=== PATIENT | male | born 1950 | race Caucasian/White ===

== ENCOUNTER 2023-10-10 11:20 | Outpatient (OUT) | payer MEDICARE, SELFPAY ==
[2023-10-10 12:13] LABS: Alanine Aminotransferase 40 U/L (16-63); Albumin Level 4.1 g/dL (3.4-5.0); Alkaline Phosphatase 55 U/L (46-116); Aspartate Amino Transferase 36 U/L (15-37); BUN Creatinine Ratio 14.4; Bilirubin Total 0.6 mg/dL (0.2-1.0); Calcium 8.8 mg/dL (8.5-10.1); Chloride 104 mmol/L (98-107); Chol HDL Ratio 3.6; Cholesterol 147 mg/dL (<=200); Estimated GFR (African America >60 (>=60); Estimated GFR (Non-African Ame >60 (>=60); Globulin 4.2 g/dL; Glucose 106 mg/dL (74-106); HDL Cholesterol 41 mg/dL (40-60); LDL Cholesterol Calculated 81.2 mg/dL; Sodium 140 mmol/L (136-145); Total Protein 8.3 g/dL (6.4-8.2); Triglycerides 124 mg/dL (<=150); VLDL CHOLESTEROL 24.8 mg/dL
[2023-10-10 12:24] LABS: Creatine Kinase 469 U/L (39-308)
== END 2023-10-10 11:21 | disposition home or self-care (01) ==
LOC: LAB 11:28
PROVIDERS: PCP Family Medicine; Visit Provider Nurse Practitioner Family
DX: I25.10 Atherosclerotic heart disease of native coronary artery without angina pectoris (principal)
CPT/HCPCS: 36415; 80053; 80061; 82550

== ENCOUNTER 2024-02-18 12:53 | Outpatient (OUT) | payer MEDICARE, SELFPAY ==
--- OUTSIDE RECORDS SUMMARY | 2024-02-18 13:12 | XMS_ITS | CCD ---
Author Organization [facility] Care Team Providers Care Route Process Administrator Name Role Phone BRYCE HUERTA Attending Unavailable MIRTAMABER Admitting Unavailable MIRTAAMBER Consulting Unavailable AMBER KIRBY Attending Unavailable HOY ., DR CROOKS Primary Care Unavailable MOUKARBEL, DR WU Admitting Unavailable MOUKARBEL, DR WU Attending Unavailable HOY ., DR CROOKS Primary Care Unavailable MOUKARBEL, DR WU Admitting Unavailable MOUKARBEL, DR WU Consulting Unavailable MOUKARBEL, DR WU Attending Unavailable HOY ., DR CROOKS Primary Care Unavailable HOY ., DR CROOKS Consulting Unavailable HOY ., DR CROOKS Attending Unavailable HOY ., DR CROOKS Admitting Unavailable HOY ., DR CROOKS Primary Care Unavailable HOY ., DR CROOKS Primary Care Unavailable HOY ., DR CROOKS Consulting Unavailable HOY ., DR CROOKS Attending Unavailable HOY ., DR CROOKS Admitting Unavailable HenriyYamilDaksha Referring Unavailable Haroon HUNTLEY Attending Unavailable Allergies Allergy Classification Reported Allergen(s) Allergy Type Date of Onset Reaction(s) Facility (1 source) black walnut pollen extract Drug Allergy [facility] Repository (1 source) Hmg-Coa Reductase Inhibitors (Statins); Translations: [statins] Propensity to adverse reactions (disorder) [facility] Repository Problems Problem Classification Problem Date Documented Date Episodic/Chronic Coronary atherosclerosis and other heart disease (3 sources) Atherosclerotic heart disease of douglas coronary artery without angina pectoris; Translations: [Atherosclerotic heart disease of douglas coronary artery without angina pectoris] Onset: 08-19-2022 Chronic Coronary atherosclerosis and other heart disease (2 sources) Presence of aortocoronary bypass graft; Translations: [Presence of aortocoronary bypass graft] Onset: 08-19-2022 Episodic Diabetes mellitus without complication (4 sources) Other abnormal glucose; Translations: [OTHER ABNORMAL GLUCOSE] Onset: 03-18-2023 Episodic Disorders of lipid metabolism (7 sources) Mixed hyperlipidemia; Translations: [Hyperlipidemia, unspecified] Onset: 07-10-2022 Chronic Essential hypertension (3 sources) Essential (primary) hypertension; Translations: [Essential (primary) hypertension] Onset: 08-19-2022 Chronic Malaise and fatigue (1 source) Other fatigue; Translations: [OTHER FATIGUE] Onset: 03-19-2023 Episodic Other screening for suspected conditions (not mental disorders or infectious disease) (2 sources) Encounter for screening for malignant neoplasm of prostate; Translations: [Encounter for screening for malignant neoplasm of rectum] Onset: 03-19-2023 Episodic Results Test Name Value Interpretation Reference Range Facility Physician Referralon 024 Physician Referral [id number] Normal [facility] Physician Referralon 024 Physician Referral [id number] Normal [facility] OCC BLD IMMUNO SCREENon OCCULT BLOOD Positive Abnormal NEGATIVE [facility] Comment on above: Performed By: #### C MP, CK, LIPID #### [facility] [address] [place] [address] Dr. Tyrell Casillas CBC AUTO DIFFon 03-18-2023 BASO # 0.0 103/ul Normal 0.0-0.1 [facility] Comment on above: Performed By: #### C BC #### [facility] [address] [place] [address] Dr. Tyrell Casillas Basophils/100 WBC (Bld) 0.5 % Normal 0.2-2.0 [facility] Comment on above: Performed By: #### C BC #### [facility] [address] [place] [address] Dr. Tyrell Casillas EO # 0.2 103/ul Normal 0.0-0.7 [facility] Comment on above: Performed By: #### C BC #### [facility] [address] [place] [address] Dr. Tyrell Casillas Eosinophils/100 WBC (Bld) 2.6 % Normal 0.9-7.0 [facility] Comment on above: Performed By: #### C BC #### [facility] [address] [place] [address] Dr. Tyrell Casillas Erythrocyte distribution width (RBC) [Ratio] 11.7 % Normal 11.0-15.0 [facility] Comment on above: Performed By: #### C BC #### [facility] [address] [place] [address] Dr. Tyrell Casillas Hematocrit (Bld) [Volume fraction] 39.9 % Critically low 42.0-54.0 [facility] Comment on above: Performed By: #### C BC #### [facility] [address] [place] [address] Dr. Tyrell Casillas Hemoglobin (Bld) [Mass/Vol] 13.9 g/dL Critically low 14.0-18.0 [facility] Comment on above: Performed By: #### C BC #### [facility] [address] [place] [address] Dr. Tyrell Casillas IG # 0.02 10e3/ul Normal 0.00-0.03 [facility] Comment on above: Performed By: #### C BC #### [facility] [address] [place] [address] Dr. Tyrell Casillas IG % 0.3 % Normal 0.0-0.5 [facility] Comment on above: Performed By: #### C BC #### [facility] [address] [place] [address] Dr. Tyrell Casillas LYMPH # 1.7 103/ul Normal 1.2-3.8 [facility] Comment on above: Performed By: #### C BC #### [facility] [address] [place] [address] Dr. Tyrell Casillas Lymphocytes/100 WBC (Bld) 28.1 % Normal 20.5-60.0 [facility] Comment on above: Performed By: #### C BC #### [facility] [address] [place] [address] Dr. Tyrell Casillas MANUAL DIFF REQ NO Normal [facility] Comment on above: Performed By: #### C BC #### [facility] [address] [address] [address] Tyrell Casillas MCH (RBC) [Entitic mass] 32.3 pg Normal 25.9-34.0 [facility] Comment on above: Performed By: #### C BC #### [facility] [address] [place] [address] Dr. Tyrell Casillas MCHC (RBC) [Mass/Vol] 34.8 g/dL Normal 29.9-35.2 [facility] Comment on above: Performed By: #### C BC #### [facility] [address] [place] [address] Dr. Tyrell Casillas MCV (RBC) [Entitic vol] 92.8 fL Normal 80.0-94.0 [facility] Comment on above: Performed By: #### C BC #### [facility] [address] [place] [address] Dr. Tyrell Casillas MONO # 0.5 103/ul Normal 0.3-0.8 [facility] Comment on above: Performed By: #### C BC #### [facility] [address] [place] [address] Dr. Tyrell Casillas Monocytes/100 WBC (Bld) 8.5 % Normal 1.7-12.0 [facility] Comment on above: Performed By: #### C BC #### [facility] [address] [place] [address] Dr. Tyrell Casillas NEUT # 3.5 103/ul Normal 1.4-6.5 [facility] Comment on above: Performed By: #### C BC #### [facility] [address] [place] [address] Dr. Tyrell Casillas Neutrophils/100 WBC (Bld) 60.0 % Normal 43.0-75.0 [facility] Comment on above: Performed By: #### C BC #### [facility] [address] [place] [address] Dr. Tyrell Casillas Platelet mean volume (Bld) [Entitic vol] 8.3 fL Critically low 9.5-13.5 [facility] Comment on above: Performed By: #### C BC #### [facility] [address] [address] [address] Tyrell Casillas PLT 200 103/ul Normal 150-450 [facility] Comment on above: Performed By: #### C BC #### [facility] [address] [address] [address] Tyrell Casillas RBC 4.30 106/ul Critically low 4.70-6.10 [facility] Comment on above: Performed By: #### C BC #### [facility] [address] [address] [address] Tyrell Casillas WBC 5.9 103/ul Normal 4.0-11.0 [facility] Comment on above: Performed By: #### C BC #### [facility] [address] [place] [address] Dr. Tyrell Casillas CPKon 03-18-2023 CK [Catalytic activity/Vol] 505 U/L Critically high 39-308 [facility] Comment on above: Performed By: #### C K #### [facility] [address] [place] [address] Dr. Tyrell Casillas FREE T3on 03-18-2023 FREE T3 2.98 pg/mlL Normal 2.18-3.98 [facility] Comment on above: Performed By: #### T 4, CMP, TSH, FT3, LIPID #### [facility] [address] [place] [address] Dr. Tyrell Casillas GLYCOHEMOGLOBIN A1Con 2022 ADA RECOMMENDATION SEE BELOW Normal [facility] Comment on above: Result Comment: ADA RECOMMENDED LIMIT 4.0 - 6.0 ADA THERAPEUTIC TARGET < 7.0 ACTION SUGGESTED > 7.0 Performed By: #### C MP, CK, LIPID #### [facility] [address] [place] [address] Dr. Tyrell Casillas Glucose [Mass/Vol] 131 mg/dL Normal [facility] Comment on above: Performed By: #### C MP, CK, LIPID #### [facility] [address] [place] [address] Dr. Tyrell Casillas HbA1c (Bld) [Mass fraction] 6.2 % Normal 4.5-6.2 [facility] Comment on above: Performed By: #### C MP, CK, LIPID #### [facility] [address] [place] [address] Dr. Tyrell Casillas LIPID PROFILEon 03-18-2023 CHOL-HDL RATIO NORM SEE BELOW Normal [facility] Comment on above: Result Comment: 3.3 - 4.4 LOW RISK 4.4 - 7.1 AVERAGE RISK 7.1 - 11.0 MODERATE RISK >11.0 HIGH RISK Performed By: #### T 4, CMP, TSH, FT3, LIPID #### [facility] [address] [place] [address] Dr. Tyrell Casillas Cholesterol [Mass/Vol] 150 mg/dL Normal <=200 [facility] Comment on above: Performed By: #### T 4, CMP, TSH, FT3, LIPID #### [facility] [address] [place] [address] Dr. Tyrell Casillas Cholesterol in HDL [Mass/Vol] 42 mg/dL Normal 40-60 [facility] Comment on above: Performed By: #### T 4, CMP, TSH, FT3, LIPID #### [facility] [address] [place] [address] Dr. Tyrell Casillas Cholesterol in LDL [Mass/Vol] 84.2 mg/dL Normal [facility] Comment on above: Performed By: #### T 4, CMP, TSH, FT3, LIPID #### [facility] [address] [place] [address] Dr. Tyrell Casillas Cholesterol.total/Cho lesterol in HDL [Mass ratio] 3.6 {ratio} Normal [facility] Comment on above: Performed By: #### T 4, CMP, TSH, FT3, LIPID #### [facility] [address] [place] [address] Dr. Tyrell Casillas HDL NORMAL > or = 60 mg/dl - LO W CARDIOVASCULAR RISK <40 mg/dl - HIGH CARDIOVASCULAR RISK Normal [facility] Comment on above: Performed By: #### T 4, CMP, TSH, FT3, LIPID #### [facility] [address] [address] [address] Tyrell Casillas LDL CALC NORMAL SEE BELOW Normal [facility] Comment on above: Result Comment: <100 mg/dl OPTIMAL 100 - 129 mg/dl NEAR OR ABOVE OPTIMAL 130 - 159 mg/dl BORDERLINE HIGH 160 - 189 mg/dl HIGH >190 mg/dl VERY HIGH Performed By: #### T 4, CMP, TSH, FT3, LIPID #### [facility] [address] [address] [address] Tyrell Casillas Triglyceride [Mass/Vol] 119 mg/dL Normal <=150 [facility] Comment on above: Performed By: #### T 4, CMP, TSH, FT3, LIPID #### [facility] [address] [address] [address] Tyrell Casillas VLDL CALC 23.8 mg/dL Normal [facility] Comment on above: Performed By: #### T 4, CMP, TSH, FT3, LIPID #### [facility] [address] [place] [address] Dr. Tyrell Casillas PROF 14(COMP METB)on 023 Albumin [Mass/Vol] 4.5 g/dL Normal 3.4-5.[address] [facility] Comment on above: Performed By: #### T 4, CMP, TSH, FT3, LIPID #### [facility] [address] [place] [address] Dr. Tyrell Casillas Albumin/Globulin [Mass ratio] 1.1 {ratio} Normal [facility] Comment on above: Performed By: #### T 4, CMP, TSH, FT3, LIPID #### [facility] [address] [address] [address] Tyrell Casillas ALP [Catalytic activity/Vol] 57 U/L Normal 46-116 [facility] Comment on above: Performed By: #### T 4, CMP, TSH, FT3, LIPID #### [facility] [address] [place] [address] Dr. Tyrell Casillas ALT [Catalytic activity/Vol] 49 U/L Normal 16-63 [facility] Comment on above: Performed By: #### T 4, CMP, TSH, FT3, LIPID #### [facility] [address] [address] [address] Tyrell Casillas Anion gap [Moles/Vol] 12.7 mmol/L Normal [facility] Comment on above: Performed By: #### T 4, CMP, TSH, FT3, LIPID #### [facility] [address] [place] [address] Dr. Tyrell Casillas AST [Catalytic activity/Vol] 35 U/L Normal 15-37 [facility] Comment on above: Performed By: #### T 4, CMP, TSH, FT3, LIPID #### [facility] [address] [place] [address] Dr. Tyrell Casillas Bilirubin [Mass/Vol] 0.4 mg/dL Normal 0.2-1.0 [facility] Comment on above: Performed By: #### T 4, CMP, TSH, FT3, LIPID #### [facility] [address] [place] [address] Dr. Tyrell Casillas Calcium [Mass/Vol] 9.5 mg/dL Normal 8.5-10.[address] [facility] Comment on above: Performed By: #### T 4, CMP, TSH, FT3, LIPID #### [facility] [address] [place] [address] Dr. Tyrell Casillas Chloride [Moles/Vol] 106 mmol/L Normal 98-107 [facility] Comment on above: Performed By: #### T 4, CMP, TSH, FT3, LIPID #### [facility] [address] [place] [address] Dr. Tyrell Casillas CO2 [Moles/Vol] 27.4 mmol/L Normal 21.0-32.0 [facility] Comment on above: Performed By: #### T 4, CMP, TSH, FT3, LIPID #### [facility] [address] [place] [address] Dr. Tyrell Casillas Creatinine [Mass/Vol] 0.96 mg/dL Normal 0.70-1.30 [facility] Comment on above: Performed By: #### T 4, CMP, TSH, FT3, LIPID #### [facility] [address] [address] [address] Tyrell Casillas EGFR-AF CUBAN >60 Normal >=60 [facility] Comment on above: Performed By: #### T 4, CMP, TSH, FT3, LIPID #### [facility] [address] [address] [address] Tyrell Casillas EGFR-NON AF CUBAN >60 Normal >=60 [facility] Comment on above: Performed By: #### T 4, CMP, TSH, FT3, LIPID #### [facility] [address] [address] [address] Tyrell Casillas Globulin (S) [Mass/Vol] 4.0 g/dL Normal [facility] Comment on above: Performed By: #### T 4, CMP, TSH, FT3, LIPID #### [facility] [address] [place] [address] Dr. Tyrell Casillas Glucose [Mass/Vol] 101 mg/dL Normal 74-[address] [facility] Comment on above: Performed By: #### T 4, CMP, TSH, FT3, LIPID #### [facility] [address] [address] [address] Tyrell Casillas Potassium [Moles/Vol] 4.1 mmol/L Normal 3.5-5.1 [facility] Comment on above: Performed By: #### T 4, CMP, TSH, FT3, LIPID #### [facility] [address] [address] [address] Tyrell Casillas Protein [Mass/Vol] 8.5 g/dL Critically high 6.4-8.2 [facility] Comment on above: Performed By: #### T 4, CMP, TSH, FT3, LIPID #### [facility] [address] [place] [address] Dr. Tyrell Casillas Sodium [Moles/Vol] 142 mmol/L Normal 136-[address] [facility] Comment on above: Performed By: #### T 4, CMP, TSH, FT3, LIPID #### [facility] [address] [place] [address] Dr. Tyrell Casillas Urea nitrogen [Mass/Vol] 18.0 mg/dL Normal 7.0-18.0 [facility] Comment on above: Performed By: #### T 4, CMP, TSH, FT3, LIPID #### [facility] [address] [address] [address] Tyrell Casillas Urea nitrogen/Creatinine [Mass ratio] 18.8 mg/mg Normal [facility] Comment on above: Performed By: #### T 4, CMP, TSH, FT3, LIPID #### [facility] [address] [address] [address] Tyrell Casillas T4on 03-18-2023 T4 [Mass/Vol] 5.60 ug/dL Normal 4.50-12.10 [facility] Comment on above: Performed By: #### T 4, CMP, TSH, FT3, LIPID #### [facility] [address] [address] [address] Tyrell Casillas TSHon 03-18-2023 TSH 0.892 uIU/mL Normal 0.358-3.740 [facility] Comment on above: Performed By: #### T 4, CMP, TSH, FT3, LIPID #### [facility] [address] [address] [address] Tyrell Casillas 36on 10-07-2022 36 Approving, but needs appt for additional refills. Normal [facility] Follow-Upon 08-19-2022 Follow-Up [id number] Gretchen Delatorre 1950 M Date Provider Department Center 08/19/2022 BRYCE MACHADO [facility] Family History Family history unknown: Yes Level of Service:57619 [place] OFFICE/OUTPATIENT ESTABLISHED MOD MDM 30-39 MIN Reason for Visit and Comments: Coronary Artery Disease [187] Hypertension [858533] Hyperlipidemia [182] Normal [facility] CPKon 08-16-2022 CK [Catalytic activity/Vol] 444 U/L Critically high 39-308 [facility] Comment on above: Performed By: #### C MP, CK, LIPID #### [facility] [address] [address] [address] Tyrell Casillas LIPID PROFILEon 08-16-2022 CHOL-HDL RATIO NORM SEE BELOW Normal [facility] Comment on above: Result Comment: 3.3 - 4.4 LOW RISK 4.4 - 7.1 AVERAGE RISK 7.1 - 11.0 MODERATE RISK >11.0 HIGH RISK Performed By: #### C MP, CK, LIPID #### [facility] [address] [address] [address] Tyrell Casillas Cholesterol [Mass/Vol] 132 mg/dL Normal <=200 [facility] Comment on above: Performed By: #### C MP, CK, LIPID #### [facility] [address] [address] [address] Tyrell Casillas Cholesterol in HDL [Mass/Vol] 39 mg/dL Critically low 40-60 [facility] Comment on above: Performed By: #### C MP, CK, LIPID #### [facility] [address] [address] [address] Tyrell Casillas Cholesterol in LDL [Mass/Vol] 72.8 mg/dL Normal [facility] Comment on above: Performed By: #### C MP, CK, LIPID #### [facility] [address] [address] [address] Tyrell Casillas Cholesterol.total/Cho lesterol in HDL [Mass ratio] 3.4 {ratio} Normal [facility] Comment on above: Performed By: #### C MP, CK, LIPID #### [facility] [address] [address] [address] Tyrell Casillas HDL NORMAL > or = 60 mg/dl - LO W CARDIOVASCULAR RISK <40 mg/dl - HIGH CARDIOVASCULAR RISK Normal [facility] Comment on above: Performed By: #### C MP, CK, LIPID #### [facility] [address] [address] [address] Tyrell Casillas LDL CALC NORMAL SEE BELOW Normal [facility] Comment on above: Result Comment: <100 mg/dl OPTIMAL 100 - 129 mg/dl NEAR OR ABOVE OPTIMAL 130 - 159 mg/dl BORDERLINE HIGH 160 - 189 mg/dl HIGH >190 mg/dl VERY HIGH Performed By: #### C MP, CK, LIPID #### [facility] [address] [address] [address] Tyrell Casillas Triglyceride [Mass/Vol] 101 mg/dL Normal <=150 [facility] Comment on above: Performed By: #### C MP, CK, LIPID #### [facility] [address] [address] [address] Tyrell Casillas VLDL CALC 20.2 mg/dL Normal [facility] Comment on above: Performed By: #### C MP, CK, LIPID #### [facility] [address] [address] [address] Tyrell Casillas PROF 14(COMP METB)on 022 Albumin [Mass/Vol] 4.4 g/dL Normal 3.4-5.[address] [facility] Comment on above: Performed By: #### C MP, CK, LIPID #### [facility] [address] [place] [address] Dr. Tyrell Casillas Albumin/Globulin [Mass ratio] 1.3 {ratio} Normal [facility] Comment on above: Performed By: #### C MP, CK, LIPID #### [facility] [address] [place] [address] Dr. Tyrell Casillas ALP [Catalytic activity/Vol] 55 U/L Normal 46-116 [facility] Comment on above: Performed By: #### C MP, CK, LIPID #### [facility] [address] [place] [address] Dr. Tyrell Casillas ALT [Catalytic activity/Vol] 48 U/L Normal 16-63 [facility] Comment on above: Performed By: #### C MP, CK, LIPID #### [facility] [address] [address] [address] Tyrell Casillas Anion gap [Moles/Vol] 12.1 mmol/L Normal [facility] Comment on above: Performed By: #### C MP, CK, LIPID #### [facility] [address] [address] [address] Tyrell Casillas AST [Catalytic activity/Vol] 35 U/L Normal 15-37 [facility] Comment on above: Performed By: #### C MP, CK, LIPID #### [facility] [address] [address] [address] Tyrell Casillas Bilirubin [Mass/Vol] 0.4 mg/dL Normal 0.2-1.0 [facility] Comment on above: Performed By: #### C MP, CK, LIPID #### [facility] [address] [place] [address] Dr. Tyrell Casillas Calcium [Mass/Vol] 9.0 mg/dL Normal 8.5-10.[address] [facility] Comment on above: Performed By: #### C MP, CK, LIPID #### [facility] [address] [place] [address] Dr. Tyrell Casillas Chloride [Moles/Vol] 106 mmol/L Normal 98-107 [facility] Comment on above: Performed By: #### C MP, CK, LIPID #### [facility] [address] [place] [address] Dr. Tyrell Casillas CO2 [Moles/Vol] 25.0 mmol/L Normal 21.0-32.0 [facility] Comment on above: Performed By: #### C MP, CK, LIPID #### [facility] [address] [place] [address] Dr. Tyrell Casillas Creatinine [Mass/Vol] 0.85 mg/dL Normal 0.70-1.30 [facility] Comment on above: Performed By: #### C MP, CK, LIPID #### [facility] [address] [place] [address] Dr. Tyrell Casillas EGFR-AF CUBAN >60 Normal >=60 [facility] Comment on above: Performed By: #### C MP, CK, LIPID #### [facility] [address] [place] [address] Dr. Tyrell Casillas EGFR-NON AF CUBAN >60 Normal >=60 [facility] Comment on above: Performed By: #### C MP, CK, LIPID #### [facility] [address] [place] [address] Dr. Tyrell Casillas Globulin (S) [Mass/Vol] 3.4 g/dL Normal [facility] Comment on above: Performed By: #### C MP, CK, LIPID #### [facility] [address] [place] [address] Dr. Tyrell Casillas Glucose [Mass/Vol] 106 mg/dL Normal 74-[address] [facility] Comment on above: Performed By: #### C MP, CK, LIPID #### [facility] [address] [place] [address] Dr. Tyrell Casillas Potassium [Moles/Vol] 4.1 mmol/L Normal 3.5-5.1 [facility] Comment on above: Performed By: #### C MP, CK, LIPID #### [facility] [address] [place] [address] Dr. Tyrell Casillas Protein [Mass/Vol] 7.8 g/dL Normal 6.4-8.[address] [facility] Comment on above: Performed By: #### C MP, CK, LIPID #### [facility] [address] [place] [address] Dr. Tyrell Casillas Sodium [Moles/Vol] 139 mmol/L Normal 136-[address] [facility] Comment on above: Performed By: #### C MP, CK, LIPID #### [facility] [address] [place] [address] Dr. Tyrell Casillas Urea nitrogen [Mass/Vol] 15.0 mg/dL Normal 7.0-18.0 [facility] Comment on above: Performed By: #### C MP, CK, LIPID #### [facility] [address] [place] [address] Dr. Tyrell Casillas Urea nitrogen/Creatinine [Mass ratio] 17.6 mg/mg Normal [facility] Comment on above: Performed By: #### C MP, CK, LIPID #### [facility] [address] [place] [address] Dr. Tyrell Casillas Abstracton 07-11-2022 Abstract [id number] Gretchen Delatorre 1950 M Date Provider Department Center 07/11/2022 KYRA SANTIZO [facility] C[facility] Family History Family history unknown: Yes Normal [facility] Abstracton 07-10-2022 Abstract [id number] Gretchen Delatorre 1950 M Date Provider Department Center 07/10/2022 KYRA SANTIZO [facility] Family History Family history unknown: Yes Normal [facility] Coding Summaryon 05-31-2020 Coding Summary CODING DATE: 05/31/2020 [facility] STATUS: Home PAYOR: Medicare MC APC DESCRIPTION 5734 Level 4 Minor Procedures ADMIT DX: REASON FOR VISIT DX: Z01.818 Encounter for other preprocedural examination FINAL DX: PRINCIPAL: Z01.818 Encounter for other preprocedural examination SECONDARY: PYMT PROC APC STAT DESCRIPTION DOCTOR NAME DATE NOTE: The code number assigned matches the documented diagnosis and / or procedure in the patient's chart. However, the narrative phrase printed from the coding software may appear abbreviated, or result in slightly different terminology. Coded By: Eugenie George Date Saved: 05/31/2020 01:32 pm [facility] Provider [place] 05-23-2020 Provider Orders [id number] .00[facility]GTIFF [facility] Coding Summaryon 05-19-2020 Coding Summary CODING DATE: 05/19/2020 [facility] STATUS: Home PAYOR: Medicare MC APC DESCRIPTION 5115 Level 5 Musculoskeletal Procedures ADMIT DX: REASON FOR VISIT DX: M16.11 Unilateral primary osteoarthritis, right hip FINAL DX: PRINCIPAL: M16.11 Unilateral primary osteoarthritis, right hip SECONDARY: I10 Essential (primary) hypertension I25.10 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 However, the narrative phrase printed from the coding software may appear abbreviated, or result in slightly different terminology. Revised Coded By: Nicci Kee Revised Date Saved: 05/18/2020 12:22 pm [facility] Consent Formson 05-18-2020 Consent Forms [id number] .00[facility] Medication Managementon 05-03 Medication Management [id number] .00[facility] Outside Recordson 05-18-2020 Outside Records [id number] .00[facility] Provider Ord[place] 05-18-2020 Provider Orders [id number] .00[facility] Telemetry Stripson 0 Telemetry Strips [id number] .00[facility] .Auto Diff 1on 05-17-2020 Auto [place] % 7 % Normal 11-14 [facility] Comment on above: Performed By: #### 7 [id number], [id number], [id number] #### [facility] (DEFAULT) [address] [place] [address] Baso Abs# 0.0 x10 Normal 0.0-0.2 [facility] Comment on above: Performed By: #### 7 [id number], [id number], [id number] #### [facility] (DEFAULT) [address] [place] [address] Basophils/100 WBC (Bld) 0.2 % Normal 0.2-2.0 [facility] Comment on above: Performed By: #### 7 [id number], [id number], [id number] #### [facility] (DEFAULT) [address] [place] [address] Eos Abs# 0.1 x10 Normal 0.0-0.4 [facility] Comment on above: Performed By: #### 7 737604, [id number], [id number] #### [facility] (DEFAULT) [address] [place] [address] Eosinophils/100 WBC (Bld) 1.5 % Normal 0.9-4.0 [facility] Comment on above: Performed By: #### 7 [id number], [id number], [id number] #### [facility] (DEFAULT) [address] [place] [address] Lymphocytes (Bld) [#/Vol] 1.3 x10 Normal 1.3-2.9 [facility] Comment on above: Performed By: #### 7 936494, [id number], [id number] #### [facility] (DEFAULT) [address] [place] [address] Lymphocytes/100 WBC (Bld) 15 % Normal 14-48 [facility] Comment on above: Performed By: #### 7 166945, [id number], [id number] #### [facility] (DEFAULT) [address] [place] [address] [place] Abs# 0.6 x10 Normal 0.0-0.8 [facility] Comment on above: Performed By: #### 7 [id number], [id number], [id number] #### [facility] (DEFAULT) [address] [place] [address] Neut Abs# 6.4 x10 Normal 1.5-9.2 [facility] Comment on above: Performed By: #### 7 578767, [id number], [id number] #### [facility] (DEFAULT) [address] [place] [address]46[address] Neutrophils/100 WBC (Bld) 76 % Normal 44-88 [facility] Comment on above: Performed By: #### 7 069469, [id number], [id number] #### [facility] (DEFAULT) [address] [place] [address] CBC w/ Auto Diffon 0 Erythrocyte distribution width (RBC) [Ratio] 11.9 % Normal 11.5-15.0 [facility] Comment on above: Performed By: #### 7 813350, [id number], [id number] #### [facility] (DEFAULT) [address] [place] [address] Hematocrit (Bld) [Volume fraction] 26.9 % Low 34.8-51.9 [facility] Comment on above: Performed By: #### 7 735492, [id number], [id number] #### [facility] (DEFAULT) [address] [place] [address] Hemoglobin (Bld) [Mass/Vol] 9.2 g/dL Low 11.8-17.7 [facility] Comment on above: Performed By: #### 7 565629, [id number], [id number] #### [facility] (DEFAULT) [address] [place] [address] Man Diff? Auto Normal [facility] Comment on above: Performed By: #### 7 039352, [id number], [id number] #### [facility] (DEFAULT) [address] [place] [address] MCH (RBC) [Entitic mass] 32 pg Normal 24-34 [facility] Comment on above: Performed By: #### 7 002655, [id number], [id number] #### [facility] (DEFAULT) [address] [place] [address] MCHC (RBC) [Mass/Vol] 34 g/dL Normal 26-37 [facility] Comment on above: Performed By: #### 7 737484, [id number], [id number] #### [facility] (DEFAULT) [address] [place] [address] MCV (RBC) [Entitic vol] 94 fL Normal 81-100 [facility] Comment on above: Performed By: #### 7 126060, [id number], [id number] #### [facility] (DEFAULT) [address] [place] [address] Platelet mean volume (Bld) [Entitic vol] 9.4 fL Normal 6.3-10.2 [facility] Comment on above: Performed By: #### 7 625210, [id number], [id number] #### [facility] (DEFAULT) [address] [place] [address] Platelets (Bld) [#/Vol] 203 x10 Normal 138-427 [facility] Comment on above: Performed By: #### 7 257154, [id number], [id number] #### [facility] (DEFAULT) [address] [place] [address] RBC (Bld) [#/Vol] 2.87 x10 Low 3.70-5.30 [facility] Comment on above: Performed By: #### 7 861115, [id number], [id number] #### [facility] (DEFAULT) [address] [place] [address] WBC (Bld) [#/Vol] 8.5 x10 Normal 3.5-10.5 [facility] Comment on above: Performed By: #### 7 025976, [id number], [id number] #### [facility] (DEFAULT) [address] [place] [address] Education Noteon 05-17-2020 Education Note Education Materials POST OPERATIVE TOTAL HIP DISCHARGE INTRUCTIONS Physical Therapy: -WBAT to operative hip -focus balance, transfers and steady gait. -use a walker -Do Not Do Active Hip Abduction Exercises On Either Hip -ok to do ROM on knee. SURGEON'S WRITTEN INSTRUCTIONS: Change dressing daily. When clean and dry for 2 days may leave open to air. Bartolome hose (compression stockings) for 6 weeks Physical therapy as prescribed May shower, no tub bath. Do not rub/scrub incision. Wash gently Take Aspirin 325mg daily to prevent blood clots, coated or uncoated per patient preference. WHAT YOU SHOULD KNOW AFTER YOUR OPERATION: If you need pain pills, start before the pain becomes intense. Pain pills are frequently less upsetting to your stomach if you take them with food such as crackers or bread. If you have excessive or persistent pain, swelling, bleeding, nausea, vomiting or any other problems, you should first call your surgeon for advice. If you are unable to contact your surgeon, seek help from the emergency room. FOR THE PREVENTION OF DVT AFTER LOWER EXTREMITY SURGERY What is a DVT? There is always the risk of DVT after lower extremity surgery. DVT, or deep vein thrombosis, is a blood blot in a major vein that may partially or completely block the flow of blood. The clot occurs in the legs or pelvis, in areas where blood flow is slow, or in an injured blood vessel. DVT can be life-threatening should pieces of the clot break away and travel to the lungs. This is called pulmonary embolism What are the symptoms of DVT? The area affected by the blood clot may become swollen and painful, and possibly turn red as the normal flow of blood is blocked. You may also develop edema, which is the build up of fluid in the skin tissues surrounding the clot. If the clot is somewhere other than your leg, there may be no physical signs of DVT. If the clot breaks away and travels to your lungs, you may experience shortness of breath and chest pain. If this occurs you should call your doctor immediately or go to the emergency room. How can I prevent DVT? You should keep active. Moving the ankle and foot and bending the knee as tolerated when you are in bed and walking as tolerated. Take medication, especially the Aspirin, as prescribed by your doctor. What should I do if I think I have a DVT? You should call your doctor or go to the emergency room any time you have a sudden and unusual shortness of breath that is not related to exercise, exertion or anxiety. If you have swelling with redness and pain in your leg, you should call your doctor immediately. If there is concern then a test called ?Venous Doppler? can be done to rule of a DVT. Normal [facility] Extra [facility] 05-17-2020 Tube Collected Yes [facility] Comment on above: Performed By: #### 7 [id number], [id number], [id number] #### [facility] (DEFAULT) [address] [place] [address] Inpatient Patient Summaryon 05-17-2020 Inpatient Patient Summary [address] [address] Patient Discharge Instructions Name: GRETCHEN DELATORRE : 1950 Patient Address: [address] [facility] [address] [place] [address] Primary Care Provider: Name: DAKSHA OREILLY After you are discharged if you find you have any questions, please, call [phone] ext [phone] to speak to a nurse. Discharge Diagnosis: Primary osteoarthritis of right hip Prescription Information: If you have been given a prescription for narcotics, seek immediate medical attention if you have any difficulty breathing or any sudden status changes such as confusion and sleepiness. If you or anyone you know is experiencing suicidal thoughts, mental health, alcohol and/or drug addiction problems; contact the [facility] 26/05 Crisis Hotline -Text 4HOPE to 210030. If you received any narcotics, sedation, or any other medication that causes drowsiness for the next 24 hours, unless otherwise directed: ? Do not drive a car. ? Do not operate machinery such as power tools, lawn mowers, drills, sewing machines, or stoves ? Avoid alcoholic beverages and drugs for allergies, nerves, or sleep ? Do not make important personal or business decisions or sign any legal documents [facility] would like to thank you for allowing us to assist you with your healthcare needs. The following includes patient education materials and information regarding your injury/illness. GRETCHEN DELATORRE has been given the following list of follow-up instructions, prescriptions, and patient education materials: Follow-up Instructions With: Address: When: Bairon Win [address] [place] [address] [address] [place] [address] Business (2) 05/25/2020 2:00 PM With: Address: When: DAKSHA SHARMILA [address] [place] [address] [place] [address] Business (1) Medications During the course of your visit, your medication list was updated with the most current information. The details of those changes are reflected below: Medications That Were Updated - Follow Below Instructions Other Medications Updated: acetaminophen-oxycodo ne (Percocet 5 mg-325 mg oral tablet) 1 tab(s) Oral Every 6 hours as needed as needed for pain. Updated: cholecalciferol (Vitamin D3 1000 intl units oral capsule) 1 cap(s) Oral every day. Updated: ibuprofen (ibuprofen 800 mg oral tablet) 1 tab(s) Oral 4 times a day. Updated: omega-3 polyunsaturated fatty acids (Fish Oil 1000 mg oral capsule) 1 cap(s) Oral 2 times a day. Updated: vitamin A (vitamin A 8000 units oral capsule) 3 cap(s) Oral every day. Medications to Continue That Have Not Changed Other Medications ascorbic acid (Vitamin C 500 mg oral tablet) 1 tab(s) Oral every day. aspirin (Aspir 81 oral delayed release tablet) 1 tab(s) Oral every day. atenolol (atenolol 50 mg oral tablet) 1 tab(s) Oral every day. chondroitin-glucosami ne (Osteo Bi-Flex) 2 tab Oral every day. cyanocobalamin (Vitamin B12 1000 mcg oral tablet) 1 tab(s) Oral every day. ferrous sulfate (ferrous sulfate 325 mg (65 mg elemental iron) oral delayed release tablet) 1 tab(s) Oral every day. garlic (garlic oral tablet) 1,000 Milligram Oral every day. lisinopril (lisinopril 5 mg oral tablet) 1 tab(s) Oral every day. multivitamin (B 100 Complex oral tablet) 1 tab(s) Oral every day. multivitamin with minerals (Centrum) 1 tab(s) Oral every day. potassium gluconate (potassium gluconate 550 mg oral tablet) 1 tab(s) Oral every day. zinc sulfate (Zinc) 1 tab(s). suoer C with zinc. It is important to always keep an active list of medications available so that you can share with other providers and manage your medications appropriately. As an additional courtesy, we are also providing you with your final active medications list that you can keep with you. acetaminophen-oxycodo ne (Percocet 5 mg-325 mg oral tablet) 1 tab(s) Oral Every 6 hours as needed as needed for pain. ascorbic acid (Vitamin C 500 mg oral tablet) 1 tab(s) Oral every day. aspirin (Aspir 81 oral delayed release tablet) 1 tab(s) Oral every day. atenolol (atenolol 50 mg oral tablet) 1 tab(s) Oral every day. cholecalciferol (Vitamin D3 1000 intl units oral capsule) 1 cap(s) Oral every day. chondroitin-glucosami ne (Osteo Bi-Flex) 2 tab Oral every day. cyanocobalamin (Vitamin B12 1000 mcg oral tablet) 1 tab(s) Oral every day. ferrous sulfate (ferrous sulfate 325 mg (65 mg elemental iron) oral delayed release tablet) 1 tab(s) Oral every day. garlic (garlic oral tablet) 1,000 Milligram Oral every day. ibuprofen (ibuprofen 800 mg oral tablet) 1 tab(s) Oral 4 times a day. lisinopril (lisinopril 5 mg oral tablet) 1 tab(s) Oral every day. multivitamin (B 100 Complex oral tablet) 1 tab(s) Oral every day. multivitamin with minerals (Centrum) 1 tab(s) Oral every day. omega-3 polyunsaturated fatty acids (Fish Oil 1000 mg oral capsule) 1 cap(s) Oral 2 times a day. potassium gluconate (potassium gluconate 550 mg oral tablet) 1 tab(s) Oral every day. vitamin A (vitamin A 8000 units oral capsule) 3 cap(s) Oral every day. zinc sulfate (Zinc) 1 tab(s). suoer C with zinc. Take only the medications listed above. Contact your doctor prior to taking any medications not on this list. Medication leaflets, if any, will display below Diet & Activity Patient Activity Level: Patient Diet: Patient Activity Restrictions: Patient education materials, if any, will display below POST OPERATIVE TOTAL HIP DISCHARGE INTRUCTIONS Physical Therapy: -WBAT to operative hip -focus balance, transfers and steady gait. -use a walker -Do Not Do Active Hip Abduction Exercises On Either Hip -ok to do ROM on knee. SURGEON'S WRITTEN INSTRUCTIONS: Change dressing daily. When clean and dry for 2 days may leave open to air. Bartolome hose (compression stockings) for 6 weeks Physical therapy as prescribed May shower, no tub bath. Do not rub/scrub incision. Wash gently Take Aspirin 325mg daily to prevent blood clots, coated or uncoated per patient preference. WHAT YOU SHOULD KNOW AFTER YOUR OPERATION: If you need pain pills, start before the pain becomes intense. Pain pills are frequently less upsetting to your stomach if you take them with food such as crackers or bread. If you have excessive or persistent pain, swelling, bleeding, nausea, vomiting or any other problems, you should first call your surgeon for advice. If you are unable to contact your surgeon, seek help from the emergency room. FOR THE PREVENTION OF DVT AFTER LOWER EXTREMITY SURGERY What is a DVT? There is always the risk of DVT after lower extremity surgery. DVT, or deep vein thrombosis, is a blood blot in a major vein that may partially or completely block the flow of blood. The clot occurs in the legs or pelvis, in areas where blood flow is slow, or in an injured blood vessel. DVT can be life-threatening should pieces of the clot break away and travel to the lungs. This is called pulmonary embolism What are the symptoms of DVT? The area affected by the blood clot may become swollen and painful, and possibly turn red as the normal flow of blood is blocked. You may also develop edema, which is the build up of fluid in the skin tissues surrounding the clot. If the clot is somewhere other than your leg, there may be no physical signs of DVT. If the clot breaks away and travels to your lungs, you may experience shortness of breath and chest pain. If this occurs you should call your doctor immediately or go to the emergency room. How can I prevent DVT? You should keep active. Moving the ankle and foot and bending the knee as tolerated when you are in bed and walking as tolerated. Take medication, especially the Aspirin, as prescribed by your doctor. What should I do if I think I have a DVT? You should call your doctor or go to the emergency room any time you have a sudden and unusual shortness of breath that is not related to exercise, exertion or anxiety. If you have swelling with redness and pain in your leg, you should call your doctor immediately. If there is concern then a test called ?Venous Doppler? can be done to rule of a DVT. Viruses or Bacteria What?s got you sick? Antibiotics only treat bacterial infections. Viral illnesses cannot be treated with antibiotics. When an antibiotic is not prescribed, ask your healthcare professional for tips on how to relieve symptoms and feel better. Usual Cause Illness Viruses Bacteria Antibiotic Needed Cold/Runny Nose NO Bronchitis/Chest Cold (in otherwise healthy children and adults) NO Whooping Cough Yes Flu NO Strep Throat Yes Sore Throat (except strep) NO Fluid in the middle ear (otitis media with effusion) NO Urinary Tract Infection Yes Antibiotics Aren?t Always the Answer www.cdc.gov/getsmart GET SMART Know When Antibiotics Work U.S. Department of Health and Human Services Centers for Disease Control and Prevention July 2014 [facility] Nutrition Noteon 05-17-2020 Nutrition Note Pt eating well avg 70-100% of meals and taking supplements as ordered. No new wts. Labs reviewed, post op anemia noted. No new rec'd at this time. Will continue to follow. [facility] Pharmacy Noteon 05-17-2020 Pharmacy Note I have personally reviewed the patient's current home medication list including, prescription medications, OTC products, vitamins and supplements. Home medications reviewed upon admission as follows: Active Medications acetaminophen-oxycodo ne: 2 tab(s), PO, q6hr, PRN: for pain, 0 Refill(s), Refills: 0 ascorbic acid: 500 mg = 1 tab(s), PO, Daily, 30 tab(s), 0 Refill(s), Refills: 0 aspirin: 81 mg = 1 tab(s), PO, Daily, 90 tab(s), 0 Refill(s), Refills: 0 atenolol: 50 mg = 1 tab(s), PO, Daily, 90 tab(s), 0 Refill(s), Refills: 0 cholecalciferol: 25 mcg, PO, Daily, 0 Refill(s), Refills: 0 chondroitin-glucosami ne: 2 tab, PO, Daily, 0 Refill(s), Refills: 0 cyanocobalamin: 1,000 mcg = 1 tab(s), PO, Daily, 90 tab(s), 0 Refill(s), Refills: 0 ferrous sulfate: 325 mg = 1 tab(s), PO, Daily, 30 tab(s), 0 Refill(s), Refills: 0 garlic: 1,000 mg, PO, Daily, 0 Refill(s), Refills: 0 ibuprofen: 800 mg, PO, Daily, 0 Refill(s), Refills: 0 lisinopril: 5 mg = 1 tab(s), PO, Daily, 90 tab(s), 0 Refill(s), Refills: 0 magnesium sulfate: 250 mg, PO, Daily, 0 Refill(s), Refills: 0 multivitamin: 1 tab(s), PO, Daily, 100 tab(s), 0 Refill(s), Refills: 0 multivitamin with minerals: 1 tab(s), PO, Daily, 0 Refill(s), Refills: 0 omega-3 polyunsaturated fatty acids: 1,000 mg = 1 cap(s), PO, TID, 90 cap(s), 0 Refill(s), Refills: 0 potassium gluconate: 550 mg = 1 tab(s), PO, Daily, 0 Refill(s), Refills: 0 vitamin A: 2,400 mcg, PO, Daily, 0 Refill(s), Refills: 0 zinc sulfate: 1 tab(s), suoer C with zinc, 0 Refill(s), Refills: 0 Status of Medication History: Incomplete Source of Information: Pharmacy Records Changes Made: - Medications Added to List: VIT D 1,000 - 1C PO QD IBUPROFEN 800MG - 1T PO QID MAGNESIUM 250MG - 1T PO QD VITAMIN A 800 - 3T QD - Medications Modified: PERCOCET 5/325 - LAST FILLED : 1T PO 3-4 TIMES A DAY NEEDED FOR PAIN OMEGA-3 - BID PER QUIRINO NOTE - Medications Removed from List: state reason (i.e. no longer taking, strength change, etc) VIT A 2,000 - STRENGTH INCORRCT IBUPROFEN - NO STRENGTH ATTACHED TO MED MJAGNESIUM- NO STRENGTH ATTACHED TO MED VITAMIN A- NO STRENGTH ATTACHED TO MED Other Comments: [Electronically Signed on: 05/17/2020 08:32 EDT] Ethel Echavarria [Verified on: 05/17/2020 08:32 EDT] Ethel Echavarria [facility] Progress Note - Nurseaster 07- Progress Note - Nurse Dr. Aguila visited et changed dressing on right hip. Mod. amt of bloody drainage noted on old dressing. Area cleansed with normal saline. Incision well approximated, bruising et edema surround site. No active bleeding noted. ABD. with Primapore applied to site. Pt. tolerated well. [Electronically Signed on: 05/17/2020 17:30 EDT] Patricia Bustillos RN [Verified on: 05/17/2020 17:30 EDT] Apollo SIGALA, [facility] Progress Note-Physicianon Progress Note-Physician DATE OF POSTOPERATIVE FOLLOW UP ORTHOPEDIC PROGRESS NOTE: 05/17/2020 TIME: 1:09 pm The patient is up in the hallway with physical therapy ambulating with a walker. He states it feels tight in his right hip area but less pain than he had yesterday. He was able to do the steps using a cane which really helped eliminate that sharp pain that had yesterday. He denies numbness and tingling in the lower extremity. He denies chest pain, shortness of breath, headache or light-headedness. He denies nausea or vomiting. He is urinating without difficulty and having positive flatus. PHYSICAL EXAMINATION: VITAL SIGNS: Today, his vital signs are stable. He is afebrile. SpO2 is 100 on room air. LOWER EXTREMITIES: Today, he was able to get back into his bed on his own. He was placed in a lateral decubitus position and his dressing was changed. The dressing is blood soaked. Examination of the wound reveals there are no erythematous changes. There is moderate swelling. There is no active drainage. Today, the wound was sterilely cleaned with sterile saline and then a sterile dressing was re-applied. LABORATORY STUDIES: His WBC count today is 8.5, down from 12.9. Hemoglobin is 9.2 and hematocrit 26.9. PLAN: 1. The patient is doing satisfactorily and okay for discharge. 2. RUTH Dinh will be coming to the home within the next 24-48 hours. 3. He has been given instructions to periodically lay in bed and elevate the leg intermittently throughout the day. 4. If he has any issues or problems that he may have, he will call Dr. Win's office. Bert Aguila DO JOB #: [id number] [Electronically Signed on: 05/18/2020 11:35 EDT] RENAEBERT DO [Verified on: 05/18/2020 11:35 EDT] ALICEMATBERT DO [Transcribed on: 05/17/2020 14:48 EDT] GDU Normal [facility] .Auto Diff 1on 05-16-2020 Auto [place] % 9 % Normal 1-12 [facility] Comment on above: Performed By: #### 7 [id number], [id number], [id number] #### [facility] (DEFAULT) [address] [place] [address] Baso Abs# 0.0 x10 Normal 0.0-0.2 [facility] Comment on above: Performed By: #### 7 [id number], [id number], [id number] #### [facility] (DEFAULT) [address] [place] [address] Basophils/100 WBC (Bld) 0.1 % Low 0.2-2.0 [facility] Comment on above: Performed By: #### 7 091393, [id number], [id number] #### [facility] (DEFAULT) [address] [place] [address] Eos Abs# 0.0 x10 Normal 0.0-0.4 [facility] Comment on above: Performed By: #### 7 [id number], [id number], [id number] #### [facility] (DEFAULT) [address] [place] [address] Eosinophils/100 WBC (Bld) 0.2 % Low 0.9-4.0 [facility] Comment on above: Performed By: #### 7 [id number], [id number], [id number] #### [facility] (DEFAULT) [address] [place] [address] Lymphocytes (Bld) [#/Vol] 1.8 x10 Normal 1.3-2.9 [facility] Comment on above: Performed By: #### 7 020544, [id number], [id number] #### [facility] (DEFAULT) [address] [place] [address] 82116 Lymphocytes/100 WBC (Bld) 14 % Normal 14-48 [facility] Comment on above: Performed By: #### 7 [id number], [id number], [id number] #### [facility] (DEFAULT) [address] [place] [address] [place] Abs# 1.1 x10 High 0.0-0.8 [facility] Comment on above: Performed By: #### 7 069946, [id number], [id number] #### [facility] (DEFAULT) [address] [place] [address] Neut Abs# 9.9 x10 High 1.5-9.2 [facility] Comment on above: Performed By: #### 7 [id number], [id number], [id number] #### [facility] (DEFAULT) [address] [place] [address] Neutrophils/100 WBC (Bld) 77 % Normal 44-88 [facility] Comment on above: Performed By: #### 7 [id number], [id number], [id number] #### [facility] (DEFAULT) [address] [place] [address] CBC w/ Auto Diffon 0 Erythrocyte distribution width (RBC) [Ratio] 12.1 % Normal 11.5-15.0 [facility] Comment on above: Performed By: #### 7 [id number], [id number], [id number] #### [facility] (DEFAULT) [address] [place] [address] Hematocrit (Bld) [Volume fraction] 30.8 % Low 34.8-51.9 [facility] Comment on above: Performed By: #### 7 397898, [id number], [id number] #### [facility] (DEFAULT) [address] [place] [address] Hemoglobin (Bld) [Mass/Vol] 10.5 g/dL Low 11.8-17.7 [facility] Comment on above: Performed By: #### 7 739222, [id number], [id number] #### [facility] (DEFAULT) [address] [place] [address] 42181 Man Diff? Auto Normal [facility] Comment on above: Performed By: #### 7 [id number], [id number], [id number] #### [facility] (DEFAULT) [address] [place] [address] 60765 MCH (RBC) [Entitic mass] 32 pg Normal 24-34 [facility] Comment on above: Performed By: #### 7 658318, [id number], [id number] #### [facility] (DEFAULT) [address] [place] [address] 41306 MCHC (RBC) [Mass/Vol] 34 g/dL Normal 26-37 [facility] Comment on above: Performed By: #### 7 030393, [id number], [id number] #### [facility] (DEFAULT) [address] [place] [address] 88676 MCV (RBC) [Entitic vol] 93 fL Normal 81-100 [facility] Comment on above: Performed By: #### 7 216123, [id number], [id number] #### [facility] (DEFAULT) [address] [place] [address] 80765 Platelet mean volume (Bld) [Entitic vol] 9.2 fL Normal 6.3-10.2 [facility] Comment on above: Performed By: #### 7 676930, [id number], [id number] #### [facility] (DEFAULT) [address] [place] [address] 15519 Platelets (Bld) [#/Vol] 238 x10 Normal 138-427 [facility] Comment on above: Performed By: #### 7 297521, [id number], [id number] #### [facility] (DEFAULT) [address] [place] [address] 49103 RBC (Bld) [#/Vol] 3.31 x10 Low 3.70-5.30 [facility] Comment on above: Performed By: #### 7 173757, [id number], [id number] #### [facility] (DEFAULT) [address] [place] [address] WBC (Bld) [#/Vol] 12.9 x10 High 3.5-10.5 [facility] Comment on above: Performed By: #### 7 946791, [id number], [id number] #### [facility] (DEFAULT) [address] [place] [address]25 Progress Note-Physicianon Progress Note-Physician DATE OF POSTOPERATIVE ORTHOPEDIC PROGRESS NOTE: 05/16/2020 TIME: 12:46 pm The patient is in his bedside chair. He is awake, alert and oriented. He denies any light-headedness or dizziness today. Yesterday when he got up after surgery, he did have the dizziness once he had sat down after this physical therapy but today this has passed. He denies numbness and tingling into the right lower extremity. He denies chest pain or shortness of breath. He denies nausea or vomiting. He is urinating without difficulty and passing flatus. PHYSICAL EXAMINATION: VITAL SIGNS: Stable. He has been afebrile. LOWER EXTREMITIES: He states that in physical therapy today when he tried to do a step and he was just using one hand on the rail he felt a sharp pain in his right hip and thigh area and that is still persisting. He denies numbness and tingling into the right lower extremity. Examination reveals he has good motion to his right foot and the ankle. He has no calf tenderness. Geraldine's sign is negative. He has no significant swelling in his proximal thigh. His surgical dressing is clean, dry and intact. LABORATORY STUDIES: WBC count is 12.9, hemoglobin 10.5 and hematocrit 30.8 with a minimal left shift with absolute neutrophil at 9.9. IMPRESSION: DAY #1 STATUS POST TOTAL RIGHT HIP ARTHROPLASTY. There is sudden pain and discomfort after trying to do stairs in physical therapy. PLAN: 1. He is very apprehensive about going home. He has stairs at home. For that reason, we are going to observe him for another 24-hours. 2. If the pain in the thigh and groin persists, we will repeat an x-ray. PROGNOSIS: Good. Bert Aguila DO JOB #: [id number] [Electronically Signed on: 05/17/2020 11:24 EDT] BERT AGUILA DO [Verified on: 05/17/2020 11:24 EDT] BERT AGUILA DO [Transcribed on: 05/16/2020 13:06 EDT] GDU Normal [facility] .Auto Diff 1on 05-15-2020 Auto [place] % 1 % Normal 12 [facility] Comment on above: Performed By: #### 7 [id number], [id number], [id number] #### [facility] (DEFAULT) [address] [place] [address] Baso Abs# 0.0 x10 Normal 0.0-0.2 [facility] Comment on above: Performed By: #### 7 [id number], [id number], [id number] #### [facility] (DEFAULT) [address] [place] [address] Basophils/100 WBC (Bld) 0.1 % Low 0.2-2.0 [facility] Comment on above: Performed By: #### 7 862135, [id number], [id number] #### [facility] (DEFAULT) [address] [place] [address] Eos Abs# 0.0 x10 Normal 0.0-0.4 [facility] Comment on above: Performed By: #### 7 211789, [id number], [id number] #### [facility] (DEFAULT) [address] [place] [address] Eosinophils/100 WBC (Bld) 0.1 % Low 0.9-4.0 [facility] Comment on above: Performed By: #### 7 439713, [id number], [id number] #### [facility] (DEFAULT) [address] [place] [address] Lymphocytes (Bld) [#/Vol] 0.4 x10 Low 1.3-2.9 [facility] Comment on above: Performed By: #### 7 339968, [id number], [id number] #### [facility] (DEFAULT) [address] [place] [address] 16764 Lymphocytes/100 WBC (Bld) 4 % Low 14-48 [facility] Comment on above: Performed By: #### 7 950740, [id number], [id number] #### [facility] (DEFAULT) [address] [place] [address] [place] Abs# 0.2 x10 Normal 0.0-0.8 [facility] Comment on above: Performed By: #### 7 121905, [id number], [id number] #### [facility] (DEFAULT) [address] [place] [address] Neut Abs# 10.0 x10 High 1.5-9.2 [facility] Comment on above: Performed By: #### 7 030530, [id number], [id number] #### [facility] (DEFAULT) [address] [place] [address] 35173 Neutrophils/100 WBC (Bld) 94 % High 44-88 [facility] Comment on above: Performed By: #### 7 879109, [id number], [id number] #### [facility] (DEFAULT) [address] [place] [address] Anesthesia Noteon 05-15-2020 Anesthesia Note Patient: LA DELATORRE Age: 69 years Sex: MALE : 1950 Associated Diagnoses: None Author: Tom Casiano MD Preoperative Information Anesthesia history: Patient history: No difficult intubation, No malignant hyperthermia. Family history: No malignant hyperthermia. Review of Systems Respiratory: No shortness of breath, No apnea. Cardiovascular: CABG x 4 2005, traumatic AAA repair open, No chest pain. Gastrointestinal: Heartburn. 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 Health Status Allergies: Allergic Reactions (All) No known allergies Current medications: Home Medications (18) Active acetaminophen-oxycodo ne 325 mg-5 mg oral tablet 2 tab(s), PRN, PO, q6hr Aspir 81 oral delayed release tablet 81 mg = 1 tab(s), PO, Daily atenolol 50 mg oral tablet 50 mg = 1 tab(s), PO, Daily B 100 Complex oral tablet 1 tab(s), PO, Daily Centrum 1 tab(s), PO, Daily ferrous sulfate 325 mg (65 mg elemental iron) oral delayed release tablet 325 mg = 1 tab(s), PO, Daily Fish Oil 1000 mg oral capsule 1,000 mg = 1 cap(s), PO, TID garlic oral tablet 1,000 mg, PO, Daily ibuprofen 800 mg, PO, Daily lisinopril 5 mg oral tablet 5 mg = 1 tab(s), PO, Daily magnesium sulfate 250 mg, PO, Daily Osteo Bi-Flex 2 tab, PO, Daily potassium gluconate 550 mg oral tablet 550 mg = 1 tab(s), PO, Daily vitamin A 2,400 mcg, PO, Daily Vitamin B12 1000 mcg oral tablet 1,000 mcg = 1 tab(s), PO, Daily Vitamin C 500 mg oral tablet 500 mg = 1 tab(s), PO, Daily Vitamin D3 2000 intl units oral tablet 25 mcg, PO, Daily Zinc 1 tab(s) Problem list (past medical history): All Problems AAA (abdominal aortic aneurysm) / SNOMED CT 705409763 / Confirmed CAD (coronary artery disease) / SNOMED CT 00249372 / Confirmed Myocardial infarct / SNOMED CT 75216444 / Confirmed Resolved: CVA, old, cognitive deficits / SNOMED CT 1709369950 Histories Family History: Entire family history is negative. Procedure history: AAA - Abdominal aortic aneurysm (780379103) in 2012 at 62 Years. AAA - Abdominal aortic aneurysm (150813384) in 2005 at 55 Years. quaddruple cardiac byapss in 2005 at 55 Years. back surgery in 2004 at 54 Years. knee scope in 2004 at 54 Years. Comments: 04/27/2020 14:05 Abimbola iPckering RN right Hip arthroplasty (445823272) in 2003 at 53 Years. AAA - Abdominal aortic aneurysm (849472546) in 2002 at 52 Years. Social History Electronic Cigarette/Vaping Assessment Electronic Cigarette Use: Never. Alcohol Assessment Use: Current. Beer, Wine, 1-2 times per week Tobacco Assessment Former smoker, quit more than 30 days ago Tobacco Use:. Substance Abuse Assessment Substance use: Past. Marijuana Comment: 1979 . Physical Examination VS/Measurements Vital Signs (last 24 hrs) Last Charted SBP 125 mmHg (MAY 15 06:21) DBP 78 mmHg (MAY 15 06:21) Weight 87.2 kg (MAY 15 06:42) Pain assessment: Self-reports no pain. General: Alert and oriented, No acute distress. Airway: Mallampati classification: II (soft palate, fauces, uvula visible). Mouth: Within normal limits. Respiratory: Respirations are non-labored. Cardiovascular: Normal rate, Regular rhythm. Review / Management Results review: Lab results 05/14/2020 14:42 EDT Hgb 13.3 gm/dL Hct 38.3 % ABORh Interp A POS ABSC Gel Interp Negative 05/14/2020 14:00 EDT COVID-19 PCR Not Detected . Laboratory Results ECG interpretation: SR, occ PVCs, NSTWA. Plan [place] [employer]#( A) physical status classification: Class III. Anesthetic Preoperative Plan Anesthesia: General. . Anesthetic plan, risks, benefits, and alternatives discussed with the patient and/or family. Patient verbalized understanding. Informed consent was given. Consent was signed by the patient. [Electronically Signed on: 05/15/2020 08:26 EDT] Tom Casiano MD [Verified on: 05/15/2020 08:26 EDT] Tom Casiano MD Normal [facility] CBC w/ Auto Diffon 0 Erythrocyte distribution width (RBC) [Ratio] 12.1 % Normal 11.5-15.0 [facility] Comment on above: Performed By: #### 7 280183, [id number], [id number] #### [facility] (DEFAULT) [address] [place] [address] 31239 Hematocrit (Bld) [Volume fraction] 33.2 % Low 34.8-51.9 [facility] Comment on above: Performed By: #### 7 613408, [id number], [id number] #### [facility] (DEFAULT) [address] [place] [address] 62794 Hemoglobin (Bld) [Mass/Vol] 11.5 g/dL Low 11.8-17.7 [facility] Comment on above: Performed By: #### 7 694186, [id number], [id number] #### [facility] (DEFAULT) [address] [place] [address] 77097 Man Diff? Auto Normal [facility] Comment on above: Performed By: #### 7 264713, [id number], [id number] #### [facility] (DEFAULT) [address] [place] [address] 23613 MCH (RBC) [Entitic mass] 32 pg Normal 24-34 [facility] Comment on above: Performed By: #### 7 009610, [id number], [id number] #### [facility] (DEFAULT) [address] [place] [address] 31898 MCHC (RBC) [Mass/Vol] 35 g/dL Normal 26-37 [facility] Comment on above: Performed By: #### 7 136873, [id number], [id number] #### [facility] (DEFAULT) [address] [place] [address] 51076 MCV (RBC) [Entitic vol] 92 fL Normal 81-100 [facility] Comment on above: Performed By: #### 7 060721, [id number], [id number] #### [facility] (DEFAULT) [address] [place] [address] 89235 Platelet mean volume (Bld) [Entitic vol] 9.5 fL Normal 6.3-10.2 [facility] Comment on above: Performed By: #### 7 214881, [id number], [id number] #### [facility] (DEFAULT) [address] [place] [address] Platelets (Bld) [#/Vol] 205 x10 Normal 138-427 [facility] Comment on above: Performed By: #### 7 774676, [id number], [id number] #### [facility] (DEFAULT) [address] [place] [address] 45240 RBC (Bld) [#/Vol] 3.62 x10 Low 3.70-5.30 [facility] Comment on above: Performed By: #### 7 157479, 54179755, [id number] #### [facility] (DEFAULT) [address] [place] [address] 86574 WBC (Bld) [#/Vol] 10.6 x10 High 3.5-10.5 [facility] Comment on above: Performed By: #### 7 559334, [id number], [id number] #### [facility] (DEFAULT) [address] [place] [address] 34694 History and Physicalon 05-15 History and Physical [id number] .[id number] Normal [facility] MAGR Intraoperative Recordon 05-15-2020 MAGR Intraoperative Record MAGR Intra-Op Record Summary Primary Physician: Bairon Win DO Finalized Date/Time: 05/15/20 17:18:47 Pt. Name: NANDINIGRETCHEN/Sex: 1950 MALE Med Rec #: [id number] Physician: Bairon Win DO Financial #: [id number] Pt. Type: O Room/Bed: 221/1 Admit/Disch: 05/15/20 06:07:00 - Institution: Case Times MAGR Entry 1 Patient In Room Time 05/15/20 09:01:00 Out Room Time 05/15/20 11:20:00 Anesthesia Start Time 05/15/20 09:02:00 Stop Time 05/15/20 11:20:00 Surgery Start Time 05/15/20 09:31:00 Stop Time 05/15/20 11:15:00 Last Modified By: Ethel Gibson RN 05/15/20 14:15:45 Case Attendance MAGR Entry 1 Entry 2 Entry 3 Case Attendee Bairon Win Satya S MD Sauer, Stephanie RN Andrew DO Role Performed Surgeon - Primary Anesthesiologist of Hims Clerk Record Time In 05/15/20 09:01:00 05/15/20 09:01:00 05/15/20 09:01:00 Time Out 05/15/20 11:20:00 05/15/20 11:20:00 05/15/20 11:20:00 Procedure Arthroplasty Total Arthroplasty Total Arthroplasty Total Hip(Right) Hip(Right) Hip(Right) Last Modified By: Ethel Gibson RN, Stephanie RN Sauer, Stephanie RN 05/15/20 14:15:50 05/15/20 14:15:50 05/15/20 14:15:50 Entry 4 Entry 5 Entry 6 Case Attendee Megan GONSALES, Mauricio Foreman Brittany E CST [place] COMPUTER SYSTEMS INFORMATION DIRECTOR Role Performed Scrub Personnel Bi Data Architect Bi Data Architect Time In 05/15/20 09:01:00 05/15/20 09:01:00 05/15/20 09:01:00 Time Out 05/15/20 11:20:00 05/15/20 11:20:00 05/15/20 11:20:00 Procedure Arthroplasty Total Arthroplasty Total Arthroplasty Total Hip(Right) Hip(Right) Hip(Right) Last Modified By: Ethel Gibson RN, Stephanie RN Sauer, Stephanie RN 05/15/20 14:15:50 05/15/20 14:15:50 05/15/20 14:15:50 General Comments: CHRISTELLE ODELL DEPUY REP Surgical Procedures MAGR Pre-Care Text: A.20 Verifies operative procedure, surgical site, and laterality Im.150 Develops individualized plan of care Entry 1 Procedure Arthroplasty Total Hip Primary Procedure Yes Primary Surgeon Bairon Win DO Surgeon Comment RIGHT TOTAL HIP Start 05/15/20 09:31:00 Stop 05/15/20 11:15:00 Anesthesia Type General Surgical Service Orthopedics Wound Class Clean Technique Details Closure Technique Primary Entire procedure No was performed via laparoscope or robotic assistance Last Modified By: Ethel Gibson RN 05/15/20 14:16:00 Post-Care Text: O.730 The patient's care is consistent with the individualized perioperative plan of care General Case Data MAGR Pre-Care Text: A.350.1 Classifies surgical wound Entry 1 Case Information OR MAGR OR 05 Case Level Level 5 Wound Class Clean Specialty Orthopedics ASA Class 3 Diagnosis Preop Diagnosis DJD RIGHT HIP Postop Same As Preop Yes Postop Diagnosis DJD RIGHT HIP Blunt or No Is the procedure No penetrating injury considered occured prior to Emergent/Urgent? the start of the procedure: Last Modified By: Ethel Gibson RN 05/15/20 09:47:38 Post-Care Text: O.760 Patient receives consistent and comparable care regardless of the setting Time Out MAGR Entry 1 Time out date/time 05/15/20 09:31:00 All team members Yes have introduced themselves by name and role Surgeon, Yes Surgeon reviews Yes anesthesia, nurse critical or confirm patient, unexpected steps, site, procedure operative duration, anticipated blood loss Anesthesia team Yes Nursing team Yes reviews any reviews sterility patient-specific (including concerns indicator results) and equipment issues/concerns Antibiotic Antibiotic Yes Administration Time 09:00 prophylaxis given within the last 60 minutes Is essential N/A imaging displayed? Last Modified By: Ethel Gibson RN 05/15/20 09:48:10 Patient Positioning MAGR Pre-Care Text: A.280 Identifies baseline musculoskeletal status Im.40 Positions the patient Im.80 Applies safety devices Entry 1 Procedure Arthroplasty Total Body Position Lateral Hip(Right) Left Arm Position Extended on padded arm Right Arm Position Extended board Left Leg Position Extended Right Leg Position Extended Feet Uncrossed? Yes Press Points Checked Yes Positioning Device Arm Boards, Arm Strap, Outcome Met (O.80) Yes Pillow, Peg Board Last Modified By: Ethel Gibson RN 05/15/20 09:48:27 Post-Care Text: E.290 Evaluates musculoskeletal status O.80 Patient is free from signs and symptoms of injury related to positioning Skin Prep MAGR Pre-Care Text: A.30 Verifies allergies Im.270 Performs skin preparation Im.270.1 Implements protective measures to prevent skin and tissue injury due to chemical sources Entry 1 Skin Prep Syntegrity Prep Agents (Im.270) Chlorhexidine Gluconate Prep By Ethel Gibson RN and Alcohol Prep Area (Im.270) Hip Prep Area Details Right Skin Prep Agent Dry Yes Without Pooling Hair Removal Syntegrity Hair Removal Methods No hair removal performed Outcome Met (O.100) Yes Last Modified By: Ethel Gibson RN 05/15/20 09:48:55 Post-Care Text: E.10 Evaluates for signs and symptoms of physical injury to skin and tissue O.100 Patient is free from signs and symptoms of chemical injury Counts Verification MAGR Pre-Care Text: A.20 Verifies operative procedure, surgical site, and laterality A.20.2 Assesses the risk for unintended retained foreign body Im.20 Performs required counts Entry 1 Procedure Arthroplasty Total Hip(Right) Counts Verification Initial Counts Items included in Sponges, Sharps Initial Counts Manual the Initial Count Method Initial Counts Ethel Gibson RN, Initial Count Time 05/15/20 08:15:00 Performed By Adina Guzman CST Counts Verification Final Counts Items Included in Sponges, Sharps Final Count Method Manual Final Count Final Count Status Correct Final Counts Ethel Gibson RN, Performed By Megan GONSALES, Adina Final Count Time 05/15/20 10:45:00 Surgeon notified of Yes final counts status Outcome Met (O.20) Yes Last Modified By: Ethel Gibson RN 05/15/20 10:52:10 Post-Care Text: E.50 Evaluates results of the surgical count O.20 Patient is free from unintended retained foreign objects Patient Care Devices MAGR Pre-Care Text: A.200 Assesses risk for normothermia regulation A.40 Verifies presence of prosthetics or corrective devices Im.280 Implements thermoregulation measures Im.60 Uses supplies and equipment within safe parameters Entry 1 Entry 2 Equipment Type FLOWTRON CALF CUFF REG FORCED WARM AIR Serial ?# [id number] Equipment Setting FACTORY DEFAULT 43 DEGREES Last Modified By: Ethel Gibson RN, Stephanie RN 05/15/20 09:49:57 05/15/20 09:49:57 Post-Care Text: E.10 Evaluates signs and symptoms of physical injury to skin and tissue O.700 Patient is free from signs and symptoms of injury caused by extraneous objects Cautery MAGR Pre-Care Text: A.240 Assesses baseline skin condition A.40 Verifies presence of prosthetics or corrective devices Im.50 Implements protective measures to prevent injury due to electrical sources Entry 1 ESU Type Electrosurgical Unit Identification [id number] Number ESU Settings Syntegrity Cut Setting 75 Coag Setting 75 Grounding Pad Details Grounding Pad Yes Verified By Ethel Gibson RN Needed? Grounding Pad Site Table Grounding Pad Within Expiration Yes Date? Outcome Met (O.10) Yes Last Modified By: Ethel Gibson RN 05/15/20 09:50:21 Post-Care Text: E.10 Evaluates for signs and symptoms of physical injury to skin and tissue O.10 Patient is free from signs and symptoms of injury related to thermal sources Implant Log MAGR Pre-Care Text: A.20 Verifies operative procedure, surgical site, and laterality Im.350 Records implants inserted during the operative or invasive procedure Entry 1 Entry 2 Entry 3 Procedure Arthroplasty Total Arthroplasty Total Arthroplasty Total Hip(Right) Hip(Right) Hip(Right) Implant Action Implant Explant Implant Description DEPUY APEX HOLE DEPUY ACETABULAR SHELL DEPUY ACETABULAR SHELL ELIMINATOR Implant Information Implant/Explant 05/15/20 10:25:00 05/15/20 10:25:00 05/15/20 10:25:00 Date/Time Implanted/Explanted Bairon Win James Huddleston, James By: Pedro Edgar DO Size 54MM 58MM Java J2Ee Architect DePuy DEPUY DEPUY Catalog # Lot Number [id number] Expiration Date 03/02/30 04/02/30 Serial Number REF [id number] REF [id number] REF [id number] Device Identifier Human Readable PAUL Machine Readable PAUL MR Class Implant Usage Data Site Hip R Hip R Hip R Quantity 1 1 1 Reason for Explant Reason Not Retained Explant Disposition Adjunct Business Instructor Sterility External Indicator Result Internal Indicator Results Outcome Met (O.30) Yes Yes Yes Last Modified By: Ethel Gibson RN, Stephanie RN Sauer, Stephanie RN 05/15/20 15:23:55 05/15/20 14:52:24 05/15/20 15:23:55 Entry 4 Entry 5 Entry 6 Procedure Arthroplasty Total Arthroplasty Total Arthroplasty Total Hip(Right) Hip(Right) Hip(Right) Implant Action Implant Implant Implant Description [employer] ACETABULAR LINER DEPUY CANCELLOUS BONE DEPUY CEMENTLESS SCREW FEMORAL STEM Implant Information Implant/Explant 05/15/20 10:25:00 05/15/20 10:25:00 05/15/20 10:25:00 Date/Time Implanted/Explanted Bairon Win James Huddleston, James By: Pedro Edgar DO Size 38 ID 56OD 6.5MM X 25MM KA SIZE 11 Java J2Ee Architect DEPUY DEPUY DEPUY Catalog # Lot Number [id number] Expiration Date 12/31/24 10/02/29 07/03/24 Serial Number REF [id number] REF [id number] REF [id number] Device Identifier Human Readable PAUL Machine Readable PAUL MR Class Implant Usage Data Site Hip R Hip R Hip R Quantity 1 2 1 Reason for Explant Reason Not Retained Explant Disposition Adjunct Business Instructor Sterility External Indicator Result Internal Indicator Results Outcome Met (O.30) Yes Yes Yes Last Modified By: Ethel Gibson RN, Stephanie RN Sauer, Stephanie RN 05/15/20 15:23:55 05/15/20 15:23:55 05/15/20 15:23:55 Entry 7 Procedure Arthroplasty Total Hip(Right) Implant Action Implant Description DEPUY M SPEC METAL FEMORAL HEAD Implant Information Implant/Explant 05/15/20 10:25:00 Date/Time Implanted/Explanted Bairon Win By: Pedro WHITE Size 036MM / TAPER Java J2Ee Architect DEPUY Catalog # Lot Number [id number] Expiration Date 07/03/24 Serial Number REF 1365-51-000 Device Identifier Human Readable PAUL Machine Readable PAUL MR Class Implant Usage Data Site Hip R Quantity 1 Reason for Explant Reason Not Retained Explant Disposition Adjunct Business Instructor Sterility External Indicator Result Internal Indicator Results Outcome Met (O.30) Yes Last Modified By: Ethel Gibson RN 05/15/20 15:23:55 Post-Care Text: E.30 Evaluates verification process for correct patient, site, side and level surgery O.30 Patient's procedure is performed on the correct site, side, and level Dressing/Packing MAGR Pre-Care Text: A.350 Assesses susceptibility for infection Im.290 Administer care to wound sites Entry 1 Skin Prep Agent Yes Site Hip Removed Prior to Dressing? Site Details Right Dressing Item Details Dressing Item 4x4's, ABD Tape (Im.290) Foam (Im.290) Outcome Met Yes Last Modified By: Ethel Gibson RN 05/15/20 09:51:03 Post-Care Text: E.200 Evaluates progress of wound healing O.200 Patient's wound perfusion is consistent with or improved from baseline levels Departure from OR MAGR Entry 1 Present on Depart Oxygen Via Bed Post-op Destination PACU Skin DFO Condition Dry Description Condition Warm Description Report Given To Francesca Pastrana RN Airway Maintenance Patient Status Stable Oxygen in Use? Yes Airway Device Simple mask Flow Rate 10 Last Modified By: Ethel Gibson RN 05/15/20 09:51:24 Case Comments Finalized By: Ethel Gibson RN Document Signatures Signed By: Ethel Gibson RN 05/15/20 17:18 [facility] MAGR PACU Recordon 0 MAGR PACU Record MAGR PACU Record Summary Primary Physician: Bairon Win DO Finalized Date/Time: 05/15/20 12:19:32 Pt. Name: GRETCHEN DELATORRE/Sex: 1950 MALE Med Rec #: [id number] Physician: Bairon Win DO Financial #: [id number] Pt. Type: D Room/Bed: [facility]/ Admit/Disch: 05/15/20 06:07:00 - Institution: PACU Case Times MAGR Entry 1 In PACU I 05/15/20 11:15:00 Discharge from PACU 05/15/20 12:05:00 I Last Modified By: Francesca Pastrana RN 05/15/20 12:19:29 Finalized By: Francesca Pastrana RN Document Signatures Signed By: Francesca Pastrana RN 05/15/20 12:19 [facility] MAGR Preoperative Recordon 0 05-15-2020 MAGR Preoperative Record MAGR Pre-Op Record Summary Primary Physician: Bairon Win DO Finalized Date/Time: 05/15/20 13:36:44 Pt. Name: GRETCHEN DELATORRE/Sex: 1950 MALE Med Rec #: [id number] Physician: Bairon Win DO Financial #: [id number] Pt. Type: O Room/Bed: 221/1 Admit/Disch: 05/15/20 06:07:00 - Institution: Pre-Op Case Times MAGR Pre-Care Text: Patient will be optimally prepared for surgery. Patient is free from s/s of injury. Provide information to patient/family related to plan of care. Verify patient allergies. Confirm identity and verify consent before the operative or invasive procedure. Entry 1 Patient Arrival Time 05/15/20 06:15:00 Preop Departure 05/15/20 08:55:00 Last Modified By: Francesca Pastrana RN 05/15/20 13:36:41 Post-Care Text: Patient is prepared mentally and physically and is ready for surgery. The patient remains free from s/s of injury. Patient/family express understanding of plan of care and participate in decisions affecting his or her perioperrative plan of care. Allergies documented appropriately. Patient identifiers and consent correct. General Comments: Denies chest pain, shortness of breath or illnessess. Denies pacemaker/defib. Denies sleep apnea. Finalized By: Francesca Pastrana RN Document Signatures Signed By: Francesca Pastrana RN 05/15/20 13:36 [facility] Nutrition Noteon 05-15-2020 Nutrition Note Pt admitted for planned Rt total hip surgery; placed on an advanced as tolerated to Regular diet. 6kg wt change noted from 04/27 pre-admit weight. Pt denies any wt changes. Roxie labs reviewed and unremarkable. Full nutrition assessment completed d/t Pt at high risk r/t age greater than 65y and surgery, however, no acute concerns at this time. Will adjust diet to cardiac secondary to hx of CAD/CABG/CVA and will monitor tolerance, wts, intake, and changes in labs. Post op supplements, vitamins/ minerals already in place. To follow. 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 Anesthesia: General Indications for surgery: Radiographic findings showing profound arthritic change. Failure of prolonged conservative treatment. Progression of symptoms interfering with simple activities such as sitting walking using the bathroom and dressing. Estimated blood loss: 500 cc Complications: There were no complications Findings: The femoral head was severely flattened. The acetabulum was eroded in elliptical fashion. There was profound synovitis filling the joint. Procedure summary: Patient was brought to the operative suite he was given a general anesthetic he was placed in the lateral decubitus position and the right hip was sterilely prepped and draped in usual fashion. A timeout was taken. The incision was centered over the greater trochanter and dissection was carried down through layer fat and then through the fascia slava. The bursa was excised and then the anterior one third of the gluteus medius and minimus were detached from the greater trochanter leaving a cuff of tissue for reattachment later. The capsule was incised and the hip was easily dislocated due to its misshapen femoral head had a tendency to slide right out of the capsule. The head and neck were delivered out of the wound and a cutting guide was placed to establish the cut. And a cut was taken. Estimated diameter of the femoral head was 52. My attention was turned towards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 Records Found Hospital Course Note [facility] Clinical Discharge Summary PERSON INFORMATION Name GRETCHEN DELATORRE Age 69 Years 1950 Sex MALE Language Frisian PCP DAKSHA OREILLY Marital Status Med Service Observation Acct# Arrival 05/15/2020 06:07:00 Visit Reason RIGHT TOTAL HIP Acuity LOS Address: [address] [place] [address] [address] [facility] [address] Comment: PROVIDER INFORMATION VITALS INFORMATION Vital Sign Triage Latest Temp Oral Temp Temporal Temp Intravascular Temp Axillary Temp Rectal 02 Sat 97 % 100 % Respiratory Rate Peripheral Pulse Rate Apical Heart Rate Blood Pressure / 81 mmHg / 68 mmHg Comment: MEDICAL INFORMATION Allergy Info: No known allergies Prescriptions Given: acetaminophen-oxycodone (Percocet 5 mg-325 mg oral tablet) 1 tab(s) Oral Every 6 hours as needed as needed for pain. ascorbic acid (Vitamin C 500 mg oral tablet) 1 tab(s) Oral every day. aspirin (Aspir 81 oral delayed release tablet) 1 tab(s) Oral every day. atenolol (atenolol 50 m (more content not included)... Note Patient: GRETCHEN DELATORRE Age: 69 years Sex: MALE : 1950 Associated Diagnoses: None Author: Tom Casiano MD Postoperative Information Post Operative Note: Post Anesthesia Care Unit. Health Status Allergies: Allergic Reactions (All) No known allergies Physical Examination General: No acute distress. Respiratory: Respirations are non-labored. Review / Management Condition: Stable. Assessment Anesthetic outcome No anesthetic complications noted. Adequate pain relief. No Complaint of nausea and vomiting. Plan Transfer/ Discharge: Patient can be discharged from PACU when criteria met. Condition stable. [Electronically Signed on: 05/15/2020 11:22 EDT] Tom Casiano MD [Verified on: 05/15/2020 11:22 EDT] Tom Casiano MD Procedure Findings Note Patient: GRETCHEN DELATORRE Age: 69 years Sex: MALE : 1950 Associated Diagnoses: None Author: Tom Casiano MD Postoperative Information Post Operative Note: Post Anesthesia Care Unit. Health Status Allergies: Allergic Reactions (All) No known allergies Physical Examination General: No acute distress. Respiratory: Respirations are non-labored. Review / Management Condition: Stable. Assessment Anesthetic outcome No anesthetic complications noted. Adequate pain relief. No Complaint of nausea and vomiting. Plan Transfer/ Discharge: Patient can be discharged from PACU when criteria met. Condition stable. [Electronically Signed on: 05/15/2020 11:22 EDT] Tom Casiano MD [Verified on: 05/15/2020 11:22 EDT] Tom Casiano MD Additional Source Comments (unrecognized sect ion and content) No Status Records FoundNo Status Records FoundNo Status Records FoundNo Status Records Found INFORMATION SOURCE (unrecogn ized section and content) DATE CREATED AUTHOR 07/26/2020 [facility] DATE CREATED AUTHOR AUTHOR'S ORGANIZ ATION 10/07/2022 [facility] DATE CREATED AUTHOR AUTHOR'S ORGANIZ ATION 03/20/2023 [facility] DATE CREATED AUTHOR AUTHOR'S ORGANIZ ATION 02/16/[address] [facility] FOR RECORDS PERTAINING TO PATIENTS WHO ARE OR HAVE BEEN ENROLLED IN A CHEMICAL DEPENDENCY/SUBSTANCEABUSE PROGRAM, SOME INFORMATION MAY BE OMITTED. This clinical summary was aggregated from multiple sources. Caution should be exercised in using it in the provision of clinical care. This summary normalizes information from multiple sources, and as a consequence, information in this document may materially change the coding, format and clinical context of patient data. In addition, data may be omitted in some cases. CLINICAL DECISIONS SHOULD BE BASED ON THE PRIMARY CLINICAL RECORDS. [employer] [facility]. provides no warranty or guarantee of the accuracy or completeness of information in this document.
[2024-02-18 13:25] LABS: Basophils Percent Auto 0.4 % (0.2-2.0); Eosinophils Absolute Auto 0.1 10^3/uL (0.0-0.7); Eosinophils Percent Auto 1.4 % (0.9-7.0); Hematocrit 36.5 % (42.0-54.0); Hemoglobin 12.5 g/dL (14.0-18.0); Immature Granulocytes Abs Auto 0.01 10^3/uL (0.00-0.03); Immature Granulocytes Pct Auto 0.1 % (0.0-0.5); Lymphocytes Absolute Auto 1.9 10^3/uL (1.2-3.8); Lymphocytes Percent Auto 27.2 % (20.5-60.0); Mean Corpuscular HGB Conc 34.2 g/dL (29.9-35.2); Mean Corpuscular Hemoglobin 32.6 pg (25.9-34.0); Mean Corpuscular Volume 95.3 fL (80.0-94.0); Mean Platelet Volume 8.7 fL (9.5-13.5); Monocytes Absolute Auto 0.6 10^3/uL (0.3-0.8); Monocytes Percent Auto 8.3 % (1.7-12.0); Neutrophils Absolute Auto 4.4 10^3/uL (1.4-6.5); Neutrophils Percent Auto 62.6 % (43.0-75.0); Platelet Count 181 10^3/uL (150-450); Red Blood Count 3.83 10^6/uL (4.70-6.10); Red Cell Distribution Width 11.8 % (11.0-15.0)
[2024-02-18 14:33] LABS: Alanine Aminotransferase 45 U/L (16-63); Albumin Globulin Ratio 0.9; Albumin Level 4.1 g/dL (3.4-5.0); Alkaline Phosphatase 52 U/L (46-116); Anion Gap 15.1; Aspartate Amino Transferase 34 U/L (15-37); BUN Creatinine Ratio 25.8; Bilirubin Total 0.5 mg/dL (0.2-1.0); Calcium 9.4 mg/dL (8.5-10.1); Carbon Dioxide 22.1 mmol/L (21.0-32.0); Chloride 106 mmol/L (98-107); Chol HDL Ratio 3.7; Cholesterol 143 mg/dL (<=200); Estimated GFR (African America >60 (>=60); Estimated GFR (Non-African Ame >60 (>=60); Globulin 4.4 g/dL; Glucose 103 mg/dL (74-106); HDL Cholesterol 39 mg/dL (40-60); Potassium 4.2 mmol/L (3.5-5.1); Sodium 139 mmol/L (136-145); Thyroid Stimulating Hormone 1.127 uIU/mL (0.358-3.740); Total Protein 8.5 g/dL (6.4-8.2); Triglycerides 133 mg/dL (<=150); VLDL CHOLESTEROL 26.6 mg/dL
[2024-02-18 14:44] LABS: Estimated Average Glucose 131 mg/dL; Glycohemoglobin A1C 6.2 % (4.5-6.2)
[2024-02-18 15:08] LABS: Prostate Specific Antigen Scrn 0.24 ng/mL (<=4.00)
[2024-02-19 11:10] LABS: Insulin 14.5 uIU/mL (2.6-24.9)
== END 2024-02-18 12:54 | disposition home or self-care (01) ==
LOC: LAB 12:57
PROVIDERS: PCP Family Medicine; Visit Provider Family Medicine
DX: Z12.5 Encounter for screening for malignant neoplasm of prostate (principal); E78.5 Hyperlipidemia, unspecified; I10 Essential (primary) hypertension; I25.10 Atherosclerotic heart disease of native coronary artery without angina pectoris; R73.9 Hyperglycemia, unspecified
CPT/HCPCS: 36415; 80053; 80061; 83036; 83525; 84436; 84443; 84481; 85025; G0103

== ENCOUNTER 2024-03-02 15:50 | Outpatient (REF) | payer MEDICARE, SELFPAY ==
--- OUTSIDE RECORDS SUMMARY | 2024-03-04 16:12 | XMS_ITS | CCD ---
Author Organization [facility] Care Team Providers Care Electromedical Equipment Repairer Name Role Phone BRYCE HUERTA Attending Unavailable MIRTAAMBER FRAUSTO Admitting Unavailable AMBER KIRBY Consulting Unavailable AMBER KIRBY Attending Unavailable HOY [...] Unavailable HOY ., DR CROOKS Admitting Unavailable Daksha Oreilly Primary Care Physician Haroon HUNTLEY Attending Unavailable Haroon HUNTLEY Attending Unavailable Daksha Oreilly Referring Unavailable Allergies Allergy Classification Reported Allergen(s) Allergy Type Date of Onset Reaction(s) Facility (1 source) black walnut pollen extract Drug Allergy [facility] Repository (1 source) Hmg-Coa Reductase Inhibitors (Statins); Translations: [statins] Propensity to adverse reactions (disorder) [facility] Repository (1 source) No Known Medication Allergies; Translations: [No Known Medication Allergies] Propensity to adverse reactions (disorder) [facility] Repository Medications Current Medications Medication Drug Class(es) Dates Sig (Normalized) Sig (Original) aspirin 81 mg delayed release oral tablet (2 sources) Platelet Aggregation Inhibitor, Nonsteroidal Anti-inflammatory Drug Start: 06-19-2021 take 1 tablet by mouth once daily aspirin 81 mg Oral EC Tab 81 mg = 1 tab(s), Oral, Daily Start Date: 06/19/21 Status: Ordered atenolol 50 mg oral tablet (2 sources) beta-Adrenergic Celeste Start: 06-19-2021 take 1 tablet by mouth once daily atenolol 50 mg Tab 50 mg = 1 tab(s), Oral, Daily Start Date: 06/19/21 Status: Ordered Osteo Bi-Flex (2 sources) Start: 02-16-2024 Osteo Bi-Flex Refill(s) 0 Start Date: 02/16/24 Status: Ordered ezetimibe 10 mg oral tablet (2 sources) Dietary Cholesterol Absorption Inhibitor Start: 06-19-2021 take 1 tablet by mouth once daily ezetimibe 10 mg Tab 10 mg = 1 tab(s), Oral, Daily Start Date: 06/19/21 Status: Ordered Fish Oils (2 sources) Start: 06-19-2021 take 1200 mg by mouth once daily Fish Oil 1,200 mg, Oral, Daily Start Date: 06/19/21 Status: Ordered lisinopril 10 mg oral tablet (2 sources) Angiotensin Converting Enzyme Inhibitor Start: 06-19-2021 take 1 tablet by mouth once daily lisinopril 10 mg Tab 10 mg = 1 tab(s), Oral, Daily Start Date: 06/19/21 Status: Ordered Multivitamin preparation (2 sources) Start: 02-16-2024 take 1 tablet by mouth once daily multivitamin 1 tab(s), Oral, Daily, Refill(s) 0 Start Date: 02/16/24 Status: Ordered rosuvastatin calcium 10 mg oral tablet (2 sources) HMG-CoA Reductase Inhibitor Start: 06-19-2021 take 1 tablet by mouth once daily rosuvastatin 10 mg Tab 10 mg = 1 tab(s), Oral, Daily Start Date: 06/19/21 Status: Ordered Problems Problem Classification Problem Date Documented Da te Episodic/Chronic Acute cerebrovascular disease (2 sources) Cerebrovascular accident 06-19-2021 Chronic Acute myocardial infarction (2 sources) Myocardial infarction 06-19-2021 Chronic Cataract (2 sources) Cataract 02-16-2024 Chronic Coronary atherosclerosis and other heart disease (5 sources) Atherosclerotic heart disease of creek coronary artery without angina pectoris; Translations: [Coronary arteriosclerosis] Onset: 08-19-2022 Chronic Coronary atherosclerosis and other heart disease (2 sources) Presence of aortocoronary bypass graft; Translations: [Presence of aortocoronary bypass graft] Onset: 08-19-2022 Episodic Diabetes mellitus without complication (4 sources) Other abnormal glucose; Translations: [OTHER ABNORMAL GLUCOSE] Onset: 03-18-2023 Episodic Disorders of lipid metabolism (9 sources) Mixed hyperlipidemia; Translations: [Hyperlipidemia, unspecified] Onset: 07-10-2022 Chronic Essential hypertension (5 sources) Essential (primary) hypertension; Translations: [Hypertensive disorder] Onset: 08-19-2022 Chronic Malaise and fatigue (1 source) Other fatigue; Translations: [OTHER FATIGUE] Onset: 03-19-2023 Episodic Osteoarthritis (2 sources) Osteoarthritis 06-19-2021 Chronic Osteoporosis (2 sources) Osteoporosis 06-19-2021 Chronic Other gastrointestinal disorders (2 sources) Occult blood in stools 06-21-2021 Episodic Other nutritional; endocrine; and metabolic disorders (2 sources) Body mass index 30+ - obesity 02-18-2024 Chronic Other nutritional; endocrine; and metabolic disorders (2 sources) Morbid obesity 02-18-2024 Chronic Other screening for suspected conditions (not mental disorders or infectious disease) (2 sources) Encounter for screening for malignant neoplasm of prostate; Translations: [Encounter for screening for malignant neoplasm of rectum] Onset: 03-19-2023 Episodic Other skin disorders (2 sources) Hypertrophic condition of skin; Translations: [Other hypertrophic disorders of the skin] Onset: 02-18-2024 Episodic Other skin disorders (2 sources) Skin tag 02-18-2024 Episodic Rachelle-; endo-; and myocarditis; cardiomyopathy (except that caused by tuberculosis or sexually transmitted disease) (2 sources) Cardiomyopathy Onset: 05-19-2013 02-16-2024 Chronic Spondylosis; intervertebral disc disorders; other back problems (2 sources) Degeneration of lumbar intervertebral disc 06-19-2021 Chronic Spondylosis; intervertebral disc disorders; other back problems (2 sources) Spinal stenosis of lumbar region 06-19-2021 Episodic Results Test Name Value Interpretation Reference Range Facility Ambulatory Visit Summaryon 0 03-02-2024 Ambulatory Visit Summary GRETCHEN DELATORRE :1950 Visit Date:03/02/2024 Ambulatory Visit Instructions Your Diagnosis Skin tag Your Care Team Attending Physician - ARIAN JAIME, Haroon R Primary Care Physician - Daksha Oreilly MD This Is Your Medications List Contact prescribing physician if questions or concerns aspirin (aspirin 81 mg Oral EC Tab) atenolol (atenolol 50 mg Tab) chondroitin-glucosami ne (Osteo Bi-Flex) ezetimibe (ezetimibe 10 mg Tab) lisinopril (lisinopril 10 mg Tab) multivitamin omega-3 polyunsaturated fatty acids (Fish Oil) rosuvastatin (rosuvastatin 10 mg Tab) Procedures Performed Arthroplasty of right hip (2019), Quadruple coronary artery bypass graft (2005), Arthroplasty of left hip (2003), Arthroscopy of knee, Colonoscopy, IVC - Insertion of inferior vena caval filter, Laminectomy, Lysis of adhesions, Repair of incisional hernia, Repair of recurrent incisional hernia, Repair of ventral hernia. Medications What How Much When Instructions Unchanged aspirin (aspirin 81 mg Oral EC Tab) 1 Tablets By Mouth Every day Contact prescribing physician if questions or concerns Unchanged atenolol (atenolol 50 mg Tab) 1 Tablets By Mouth Every day Contact prescribing physician if questions or concerns Unchanged chondroitin-glucosami ne (Osteo Bi-Flex) Contact prescribing physician if questions or concerns Unchanged ezetimibe (ezetimibe 10 mg Tab) 1 Tablets By Mouth Every day Contact prescribing physician if questions or concerns Unchanged lisinopril (lisinopril 10 mg Tab) 1 Tablets By Mouth Every day Contact prescribing physician if questions or concerns Unchanged multivitamin 1 Tablets By Mouth Every day Contact prescribing physician if questions or concerns Unchanged omega-3 polyunsaturated fatty acids (Fish Oil) 1,200 Milligram By Mouth Every day Contact prescribing physician if questions or concerns Unchanged rosuvastatin (rosuvastatin 10 mg Tab) 1 Tablets By Mouth Every day Contact prescribing physician if questions or concerns Allergies No Known Allergies No Known Medication Allergies Problems Ongoing - Any problem that you are currently receiving treatment for. BMI 33.0-33.9,adult CAD (coronary artery disease) Cardiomyopathy CVA (cerebrovascular accident) Degenerative disc disease, lumbar Hyperlipemia Hypertension Lumbar stenosis Morbid obesity Myocardial infarction Osteoarthritis Osteoporosis Positive fecal occult blood test Skin tag Historical - Any problem that you are no longer receiving treatment for. Cataract Patient Survey You may receive a survey via text or e-mail asking about your office visit. Please share your experience with us by completing your survey. We appreciate your feedback and thank you for choosing us for your care. Normal [facility] General Surgery Office/Clini c Noteon 03-02-2024 General Surgery Office/Clinic Note Chief Complaint in-office excisional biopsy HPI Staff Presents for in-office excisional biopsy skin tag right chest wall. History of Present Illness patient here for excision of enlarging, irritated skin tag right chest wall, no change since recent evaluation. Review of Systems ROS - Provider Constitutional: no fever, no sweats, no weight loss. Eyes: no glasses, no blurred vision, no visual loss. ENMT: no dentures, no hoarseness, no swallowing difficulties, no hearing loss, no ear infection(s), no nose bleeds. Cardiovascular: normal blood pressure, no chest pain, regular heartbeat, no heart murmur. Respiratory: no shortness of breath, no cough, no asthma, no wheezing. Gastrointestinal: no nausea, no vomiting, no diarrhea, no constipation, no blood in stool, no change in bowel habits, no abdominal pain, no hepatitis. Genitourinary: no kidney stones, no urine infection, no dysuria. Musculoskeletal: no pain, no weakness. Skin: no changing moles, no rash, yes skin lumps. Neurologic: no seizures, no epilepsy, no headache. Psychiatric: no emotional or psychiatric problem. Heme/Lymph: no bleeding problems, no anemia, no blood clots, no transfusions. Allergy/Immunologic: no swollen lymph nodes/glands, no IV drug abuse. Other: Additional ROS info: Except as noted in the above Review of Systems and in the History of Present Illness, all other systems have been reviewed and are negative or noncontributory. Physical Exam skin: 1.5 cm lobulated skin tag right lateral chest wall, narrow base, no ulceration. Procedure patient brought to the procedure room, placed in supine position, area prepped and draped in sterile fashion; anesthetized with 0.5 % marcaine; lesion excised with electrocautery, good hemostasis; sterile dressing applied; tolerated well; ebl < 1 ml. Assessment/Plan 1. Skin tag (L91.8: Other hypertrophic disorders of the skin) excised under local with cautery; tolerated well keep area clean and dry; will call patient with pathology results; call sooner if problems/questions. Follow-up No qualifying data available Problem List/Past Medical History Ongoing BMI 33.0-33.9,adult CAD (coronary artery disease) Cardiomyopathy CVA (cerebrovascular accident) Degenerative disc disease, lumbar Hyperlipemia Hypertension Lumbar stenosis Morbid obesity Myocardial infarction Osteoarthritis Osteoporosis Positive fecal occult blood test Skin tag Historical Cataract Procedure/Surgical History Arthroplasty of right hip (2019), Quadruple coronary artery bypass graft (2005), Arthroplasty of left hip (2003), Arthroscopy of knee, Colonoscopy, IVC - Insertion of inferior vena caval filter, Laminectomy, Lysis of adhesions, Repair of incisional hernia, Repair of recurrent incisional hernia, Repair of ventral hernia. Medications aspirin 81 mg Oral EC Tab, 81 mg= 1 tab(s), Oral, Daily atenolol 50 mg Tab, 50 mg= 1 tab(s), Oral, Daily ezetimibe 10 mg Tab, 10 mg= 1 tab(s), Oral, Daily Fish Oil, 1200 mg, Oral, Daily lisinopril 10 mg Tab, 10 mg= 1 tab(s), Oral, Daily multivitamin, 1 tab(s), Oral, Daily Osteo Bi-Flex rosuvastatin 10 mg Tab, 10 mg= 1 tab(s), Oral, Daily Allergies No Known Allergies No Known Medication Allergies Social History Alcohol - Low Risk, 06/21/2021 Substance Abuse - Denies Substance Abuse, 06/21/2021 Tobacco Never (less than 100 in lifetime) Tobacco Use:. Never Smokeless Tobacco Use:., 02/18/2024 Family History Alzheimer's disease: Mother. Immunizations Vaccine Date Status influenza virus vaccine, inactivated 10/01/2023 Recorded SARS-CoV-2 (COVID-19) mRNA BNT-162b2 vax 02/27/2021 Recorded SARS-CoV-2 (COVID-19) mRNA BNT-162b2 vax 02/06/2021 Recorded Normal [facility] Comment on above: Result Comment: Elec tronically Signed By: ARIAN JAIME, Haroon Ellison\.br\Date and Time Signed: 03/02/24 15:16 EDT Ambulatory Visit Summaryon 0 02-18-2024 Ambulatory Visit Summary GRETCHEN DELATORRE :1950 Visit Date:02/18/2024 Ambulatory Visit Instructions Your Care Team Attending Physician - ARIAN JAIME, Haroon Ellison Primary Care Physician - Daksha Oreilly MD Referring Physician - Daksha Oreilly MD This Is Your Medications List aspirin (aspirin 81 mg Oral EC Tab) atenolol (atenolol 50 mg Tab) chondroitin-glucosami ne (Osteo Bi-Flex) ezetimibe (ezetimibe 10 mg Tab) lisinopril (lisinopril 10 mg Tab) multivitamin omega-3 polyunsaturated fatty acids (Fish Oil) rosuvastatin (rosuvastatin 10 mg Tab) Procedures Performed Arthroplasty of right hip (2019), Quadruple coronary artery bypass graft (2005), Arthroplasty of left hip (2003), Arthroscopy of knee, Colonoscopy, IVC - Insertion of inferior vena caval filter, Laminectomy, Lysis of adhesions, Repair of incisional hernia, Repair of recurrent incisional hernia, Repair of ventral hernia. Discharge Vitals Heart Rate (Peripheral) 76 Respiratory Rate 16 Blood Pressure 126/86 Height 167.6 cm Height 66 in Weight 92.8 kg Weight 204.16 lb BMI 33.04 What to do next Scheduled Follow-Up Appointments Friday 3:00 PM EDT With: Haroon HUNTLEY MD Where: General Surgery [facility]rian/[facility]ie [facility] Facesheeton 02-18-2024 Facesheet [id number]# 1.00TIFF Normal [facility] Physician Referralon 024 Physician Referral [id number]#1 .00TIFF Normal [facility] Physician Referralon 024 Physician Referral [id number]#1 .00TIFF Normal [facility] OCC BLD IMMUNO SCREENon 03-03 OCCULT BLOOD Positive Abnormal NEGATIVE [facility] Comment on above: Performed By: #### C MP, CK, LIPID #### [facility] [address] [place] [id number] [address] Tyrell Casillas CBC AUTO DIFFon 03-18-2023 BASO # 0.0 103/ul Normal 0.0-0.1 [facility] Comment on above: Performed By: #### C BC #### [facility] [address] [address] [address] Tyrell Casillas Basophils/100 WBC (Bld) 0.5 % Normal 0.2-2.0 [facility] Comment on above: Performed By: #### C BC #### [facility] [address] [place] [address] Dr. Tyrell Casillas EO # 0.2 103/ul Normal 0.0-0.[address] [facility] Comment on above: Performed By: #### C BC #### [facility] [address] [place] [address] Dr. Tyrell Casillas Eosinophils/100 WBC (Bld) 2.6 % Normal 0.9-7.[address] [facility] Comment on above: Performed By: #### C BC #### [facility] [address] [place] [address] Dr. Tyrell Casillas Erythrocyte distribution width (RBC) [Ratio] 11.7 % Normal 11.0-15.0 [facility] Comment on above: Performed By: #### C BC #### [facility] [address] [place] [address] Dr. Tyrell Casillas Hematocrit (Bld) [Volume fraction] 39.9 % Critically low 42.0-54.0 [facility] Comment on above: Performed By: #### C BC #### [facility] [address] [place] [address] Dr. Tyrell Casillas Hemoglobin (Bld) [Mass/Vol] 13.9 g/dL Critically low 14.0-18.[address] [facility] Comment on above: Performed By: #### C BC #### [facility] [address] [place] [address] Dr. Tyrell Casillas IG # 0.02 10e3/ul Normal 0.00-0.[address] [facility] Comment on above: Performed By: #### C BC #### [facility] [address] [place] [address] Dr. Tyrell Casillas IG % 0.3 % Normal 0.0-0.[address] [facility] Comment on above: Performed By: #### C BC #### [facility] [address] [place] [address] Dr. Tyrell Casillas LYMPH # 1.7 103/ul Normal 1.2-3.[address] [facility] Comment on above: Performed By: #### C BC #### [facility] [address] [place] [address] Dr. Tyrell Casillas Lymphocytes/100 WBC (Bld) 28.1 % Normal 20.5-60.0 [facility] Comment on above: Performed By: #### C BC #### [facility] [address] [place] [address] Dr. Tyrell Casillas MANUAL DIFF REQ NO Normal [facility] Comment on above: Performed By: #### C BC #### [facility] [address] [place] [address] Dr. Tyrell Casillas MCH (RBC) [Entitic mass] 32.3 pg Normal 25.9-34.0 [facility] Comment on above: Performed By: #### C BC #### [facility] [address] [place] [address] Dr. Tyrell Casillas MCHC (RBC) [Mass/Vol] 34.8 g/dL Normal 29.9-35.[address] [facility] Comment on above: Performed By: #### C BC #### [facility] [address] [place] [address] Dr. Tyrell Casillas MCV (RBC) [Entitic vol] 92.8 fL Normal 80.0-94.[address] [facility] Comment on above: Performed By: #### C BC #### [facility] [address] [place] [address] Dr. Tyrell Casillas MONO # 0.5 103/ul Normal 0.3-0.[address] [facility] Comment on above: Performed By: #### C BC #### [facility] [address] [place] [address] Dr. Tyrell Casillas Monocytes/100 WBC (Bld) 8.5 % Normal 1.7-12.[address] [facility] Comment on above: Performed By: #### C BC #### [facility] [address] [place] [address] Dr. Tyrell Casillas NEUT # 3.5 103/ul Normal 1.4-6.5 [facility] Comment on above: Performed By: #### C BC #### [facility] [address] [place] [address] Dr. Tyrell Casillas Neutrophils/100 WBC (Bld) 60.0 % Normal 43.0-75.0 [facility] Comment on above: Performed By: #### C BC #### [facility] [address] [place] [address] Dr. Tyrell Casillas Platelet mean volume (Bld) [Entitic vol] 8.3 fL Critically low 9.5-13.5 [facility] Comment on above: Performed By: #### C BC #### [facility] [address] [place] [address] Dr. Tyrell Casillas PLT 200 103/ul Normal 150-[address] [facility] Comment on above: Performed By: #### C BC #### [facility] [address] [place] [address] Dr. Tyrell Casillas RBC 4.30 106/ul Critically low 4.70-6.10 [facility] Comment on above: Performed By: #### C BC #### [facility] [address] [place] [address] Dr. Tyrell Casillas WBC 5.9 103/ul Normal 4.0-11.0 [facility] Comment on above: Performed By: #### C BC #### [facility] [address] [place] [address] Dr. Tyrell Casillas CPKon 03-18-2023 CK [Catalytic activity/Vol] 505 U/L Critically high 39-[address] [facility] Comment on above: Performed By: #### C K #### [facility] [address] [place] [address] Dr. Tyrell Casillas FREE T3on 03-18-2023 FREE T3 2.98 pg/mlL Normal 2.18-3.98 [facility] Comment on above: Performed By: #### T 4, CMP, TSH, FT3, LIPID #### [facility] [address] [place] [address] Dr. Tyrell Casillas GLYCOHEMOGLOBIN A1Con 2022 ADA RECOMMENDATION SEE BELOW Normal [facility] Comment on above: Result Comment: ADA RECOMMENDED LIMIT 4.0 - 6.0 ADA THERAPEUTIC TARGET < 7.0 ACTION SUGGESTED > 7.0 Performed By: #### C MP, CK, LIPID #### [facility] [address] [address] [address] Tyrell Casillas Glucose [Mass/Vol] 131 mg/dL Normal [facility] Comment on above: Performed By: #### C MP, CK, LIPID #### [facility] [address] [address] [address] Tyrell Casillas HbA1c (Bld) [Mass fraction] 6.2 % Normal 4.5-6.2 [facility] Comment on above: Performed By: #### C MP, CK, LIPID #### [facility] [address] [address] [address] Tyrell Casillas LIPID PROFILEon 03-18-2023 CHOL-HDL RATIO NORM SEE BELOW Normal [facility] Comment on above: Result Comment: 3.3 - 4.4 LOW RISK 4.4 - 7.1 AVERAGE RISK 7.1 - 11.0 MODERATE RISK >11.0 HIGH RISK Performed By: #### T 4, CMP, TSH, FT3, LIPID #### [facility] [address] [address] [address] Tyrell Casillas Cholesterol [Mass/Vol] 150 mg/dL Normal <=200 [facility] Comment on above: Performed By: #### T 4, CMP, TSH, FT3, LIPID #### [facility] [address] [address] [address] Tyrell Casillas Cholesterol in HDL [Mass/Vol] 42 mg/dL Normal 40-60 [facility] Comment on above: Performed By: #### T 4, CMP, TSH, FT3, LIPID #### [facility] [address] [address] [address] Tyrell Casillas Cholesterol in LDL [Mass/Vol] 84.2 mg/dL Normal [facility] Comment on above: Performed By: #### T 4, CMP, TSH, FT3, LIPID #### [facility] [address] [address] [address] Tyrell Casillas Cholesterol.total/Cho lesterol in HDL [Mass ratio] 3.6 {ratio} Normal [facility] Comment on above: Performed By: #### T 4, CMP, TSH, FT3, LIPID #### [facility] [address] [address] [address] Tyrell Casillas HDL NORMAL > or = 60 mg/dl - LO W CARDIOVASCULAR RISK <40 mg/dl - HIGH CARDIOVASCULAR RISK Normal [facility] Comment on above: Performed By: #### T 4, CMP, TSH, FT3, LIPID #### [facility] [address] [address] [address] Tyrell Casillas LDL CALC NORMAL SEE BELOW Normal [facility] Comment on above: Result Comment: <100 mg/dl OPTIMAL 100 - 129 mg/dl NEAR OR ABOVE OPTIMAL 130 - 159 mg/dl BORDERLINE HIGH 160 - 189 mg/dl HIGH >190 mg/dl VERY HIGH Performed By: #### T 4, CMP, TSH, FT3, LIPID #### [facility] [address] [address] [address] Tyrell Casillas Triglyceride [Mass/Vol] 119 mg/dL Normal <=150 [facility] Comment on above: Performed By: #### T 4, CMP, TSH, FT3, LIPID #### [facility] [address] [address] [address] Tyrell Casillas VLDL CALC 23.8 mg/dL Normal [facility] Comment on above: Performed By: #### T 4, CMP, TSH, FT3, LIPID #### [facility] [address] [address] [address] Tyrell Casillas PROF 14(COMP METB)on 023 Albumin [Mass/Vol] 4.5 g/dL Normal 3.4-5.0 [facility] Comment on above: Performed By: #### T 4, CMP, TSH, FT3, LIPID #### [facility] [address] [address] [address] Tyrell Casillas Albumin/Globulin [Mass ratio] 1.1 {ratio} Normal [facility] Comment on above: Performed By: #### T 4, CMP, TSH, FT3, LIPID #### [facility] [address] [place] [address] Dr. Tyrell Casillas ALP [Catalytic activity/Vol] 57 U/L Normal 46-116 [facility] Comment on above: Performed By: #### T 4, CMP, TSH, FT3, LIPID #### [facility] [address] [place] [address] Dr. Tyrell Casillas ALT [Catalytic activity/Vol] 49 U/L Normal 16-63 [facility] Comment on above: Performed By: #### T 4, CMP, TSH, FT3, LIPID #### [facility] [address] [place] [address] Dr. Tyrell Casillas Anion gap [Moles/Vol] 12.7 mmol/L Normal [facility] Comment on above: Performed By: #### T 4, CMP, TSH, FT3, LIPID #### [facility] [address] [place] [address] Dr. Tyrell Casillas AST [Catalytic activity/Vol] 35 U/L Normal 15-37 [facility] Comment on above: Performed By: #### T 4, CMP, TSH, FT3, LIPID #### [facility] [address] [place] [address] Dr. Tyrell Casillas Bilirubin [Mass/Vol] 0.4 mg/dL Normal 0.2-1.0 [facility] Comment on above: Performed By: #### T 4, CMP, TSH, FT3, LIPID #### [facility] [address] [place] [address] Dr. Tyrell Casillas Calcium [Mass/Vol] 9.5 mg/dL Normal 8.5-10.1 [facility] Comment on above: Performed By: #### T 4, CMP, TSH, FT3, LIPID #### [facility] [address] [place] [address] Dr. Tyrell Casillas Chloride [Moles/Vol] 106 mmol/L Normal 98-107 [facility] Comment on above: Performed By: #### T 4, CMP, TSH, FT3, LIPID #### [facility] [address] [address] [address] Tyrell Casillas CO2 [Moles/Vol] 27.4 mmol/L Normal 21.0-32.0 [facility] Comment on above: Performed By: #### T 4, CMP, TSH, FT3, LIPID #### [facility] [address] [place] [address] Dr. Tyrell Casillas Creatinine [Mass/Vol] 0.96 mg/dL Normal 0.70-1.30 [facility] Comment on above: Performed By: #### T 4, CMP, TSH, FT3, LIPID #### [facility] [address] [place] [address] Dr. Tyrell Casillas EGFR-AF NORTHER[place] IRISH >60 Normal >=60 [facility] Comment on above: Performed By: #### T 4, CMP, TSH, FT3, LIPID #### [facility] [address] [place] [address] Dr. Tyrell Casillas EGFR-NON AF [place]THER[place] >60 Normal >=60 [facility] Comment on above: Performed By: #### T 4, CMP, TSH, FT3, LIPID #### [facility] [address] [place] [address] Dr. Tyrell Casillas Globulin (S) [Mass/Vol] 4.0 g/dL Normal [facility] Comment on above: Performed By: #### T 4, CMP, TSH, FT3, LIPID #### [facility] [address] [place] [address] Dr. Tyrell Casillas Glucose [Mass/Vol] 101 mg/dL Normal 74-106 [facility] Comment on above: Performed By: #### T 4, CMP, TSH, FT3, LIPID #### [facility] [address] [place] [address] Dr. Tyrell Casillas Potassium [Moles/Vol] 4.1 mmol/L Normal 3.5-5.1 [facility] Comment on above: Performed By: #### T 4, CMP, TSH, FT3, LIPID #### [facility] [address] [place] [address] Dr. Tyrell Casillas Protein [Mass/Vol] 8.5 g/dL Critically high 6.4-8.2 [facility] Comment on above: Performed By: #### T 4, CMP, TSH, FT3, LIPID #### [facility] [address] [place] [address] Dr. Tyrell Casillas Sodium [Moles/Vol] 142 mmol/L Normal 136-145 [facility] Comment on above: Performed By: #### T 4, CMP, TSH, FT3, LIPID #### [facility] [address] [place] [address] Dr. Tyrell Casillas Urea nitrogen [Mass/Vol] 18.0 mg/dL Normal 7.0-18.0 [facility] Comment on above: Performed By: #### T 4, CMP, TSH, FT3, LIPID #### [facility] [address] [place] [address] Dr. Tyrell Casillas Urea nitrogen/Creatinine [Mass ratio] 18.8 mg/mg Normal [facility] Comment on above: Performed By: #### T 4, CMP, TSH, FT3, LIPID #### [facility] [address] [place] [address] Dr. Tyrell Casillas T4on 03-18-2023 T4 [Mass/Vol] 5.60 ug/dL Normal 4.50-12.10 [facility] Comment on above: Performed By: #### T 4, CMP, TSH, FT3, LIPID #### [facility] [address] [place] [address] Dr. Tyrell Casillas TSHon 03-18-2023 TSH 0.892 uIU/mL Normal 0.358-3.740 [facility] Comment on above: Performed By: #### T 4, CMP, TSH, FT3, LIPID #### [facility] [address] [place] [address] Dr. Tyrell Casillas 36on 10-07-2022 36 Approving, but needs appt for additional refills. Normal [facility] Follow-Upon 08-19-2022 Follow-Up [id number] GhulamGretchen dee Luis 1950 M Date Provider Department Center 08/19/2022 BRYCE MACHADO [facility] Family History Family history unknown: Yes Level of Service:28746 MI OFFICE/OUTPATIENT ESTABLISHED MOD MDM 30-39 MIN Reason for Visit and Comments: Coronary Artery Disease [187] Hypertension [159336] Hyperlipidemia [182] Normal [facility] CPKon 08-16-2022 CK [Catalytic activity/Vol] 444 U/L Critically high 39-308 [facility] Comment on above: Performed By: #### C MP, CK, LIPID #### [facility] [address] [address] [address] Tyrell Casillas LIPID PROFILEon 08-16-2022 CHOL-HDL RATIO NORM SEE BELOW Normal [facility] Comment on above: Result Comment: 3.3 - 4.4 LOW RISK 4.4 - 7.1 AVERAGE RISK 7.1 - 11.0 MODERATE RISK >11.0 HIGH RISK Performed By: #### C MP, CK, LIPID #### [facility] [address] [address] [address] Tyrell Casillas Cholesterol [Mass/Vol] 132 mg/dL Normal <=200 [facility] Comment on above: Performed By: #### C MP, CK, LIPID #### [facility] [address] [address] [address] Tyrell Casillas Cholesterol in HDL [Mass/Vol] 39 mg/dL Critically low 40-60 [facility] Comment on above: Performed By: #### C MP, CK, LIPID #### [facility] [address] [address] [address] Tyrell Casillas Cholesterol in LDL [Mass/Vol] 72.8 mg/dL Normal [facility] Comment on above: Performed By: #### C MP, CK, LIPID #### [facility] [address] [address] [address] Tyrell Casillas Cholesterol.total/Cho lesterol in HDL [Mass ratio] 3.4 {ratio} Normal [facility] Comment on above: Performed By: #### C MP, CK, LIPID #### [facility] [address] [address] [address] Tyrell Casillas HDL NORMAL > or = 60 mg/dl - LO W CARDIOVASCULAR RISK <40 mg/dl - HIGH CARDIOVASCULAR RISK Normal [facility] Comment on above: Performed By: #### C MP, CK, LIPID #### [facility] [address] [address] [address] Tyrell Casillas LDL CALC NORMAL SEE BELOW Normal [facility] Comment on above: Result Comment: <100 mg/dl OPTIMAL 100 - 129 mg/dl NEAR OR ABOVE OPTIMAL 130 - 159 mg/dl BORDERLINE HIGH 160 - 189 mg/dl HIGH >190 mg/dl VERY HIGH Performed By: #### C MP, CK, LIPID #### [facility] [address] [address] [address] Tyrell Casillas Triglyceride [Mass/Vol] 101 mg/dL Normal <=150 [facility] Comment on above: Performed By: #### C MP, CK, LIPID #### [facility] [address] [address] [address] Tyrell Casillas VLDL CALC 20.2 mg/dL Normal [facility] Comment on above: Performed By: #### C MP, CK, LIPID #### [facility] [address] [place] [address] Dr. Tyrell Casillas PROF 14(COMP METB)on 022 Albumin [Mass/Vol] 4.4 g/dL Normal 3.4-5.0 [facility] Comment on above: Performed By: #### C MP, CK, LIPID #### [facility] [address] [place] [address] Dr. Tyrell Casillas Albumin/Globulin [Mass ratio] 1.3 {ratio} Normal [facility] Comment on above: Performed By: #### C MP, CK, LIPID #### [facility] [address] [place] [address] Dr. Tyrell Casillas ALP [Catalytic activity/Vol] 55 U/L Normal 46-116 [facility] Comment on above: Performed By: #### C MP, CK, LIPID #### [facility] [address] [address] [address] Tyrell Casillas ALT [Catalytic activity/Vol] 48 U/L Normal 16-63 [facility] Comment on above: Performed By: #### C MP, CK, LIPID #### [facility] [address] [place] [address] Dr. Tyrell Casillas Anion gap [Moles/Vol] 12.1 mmol/L Normal [facility] Comment on above: Performed By: #### C MP, CK, LIPID #### [facility] [address] [place] [address] Dr. Tyrell Casillas AST [Catalytic activity/Vol] 35 U/L Normal 15-37 [facility] Comment on above: Performed By: #### C MP, CK, LIPID #### [facility] [address] [place] [address] Dr. Tyrell Casillas Bilirubin [Mass/Vol] 0.4 mg/dL Normal 0.2-1.0 [facility] Comment on above: Performed By: #### C MP, CK, LIPID #### [facility] [address] [place] [address] Dr. Tyrell Casillas Calcium [Mass/Vol] 9.0 mg/dL Normal 8.5-10.1 [facility] Comment on above: Performed By: #### C MP, CK, LIPID #### [facility] [address] [place] [address] Dr. Tyrell Casillas Chloride [Moles/Vol] 106 mmol/L Normal 98-107 [facility] Comment on above: Performed By: #### C MP, CK, LIPID #### [facility] [address] [place] [address] Dr. Tyrell Casillas CO2 [Moles/Vol] 25.0 mmol/L Normal 21.0-32.0 [facility] Comment on above: Performed By: #### C MP, CK, LIPID #### [facility] [address] [place] [address] Dr. Tyrell Casillas Creatinine [Mass/Vol] 0.85 mg/dL Normal 0.70-1.30 [facility] Comment on above: Performed By: #### C MP, CK, LIPID #### [facility] [address] [address] [address] Tyrell Casillas EGFR-AF [place] >60 Normal >=60 [facility] Comment on above: Performed By: #### C MP, CK, LIPID #### [facility] [address] [address] [address] Tyrell Casillas EGFR-NON AF [place] >60 Normal >=[address] [facility] Comment on above: Performed By: #### C MP, CK, LIPID #### [facility] [address] [address] [address] Tyrell Casillas Globulin (S) [Mass/Vol] 3.4 g/dL Normal [facility] Comment on above: Performed By: #### C MP, CK, LIPID #### [facility] [address] [place] [address] Dr. Tyrell Casillas Glucose [Mass/Vol] 106 mg/dL Normal 74-106 [facility] Comment on above: Performed By: #### C MP, CK, LIPID #### [facility] [address] [address] [address] Tyrell Casillas Potassium [Moles/Vol] 4.1 mmol/L Normal 3.5-5.1 [facility] Comment on above: Performed By: #### C MP, CK, LIPID #### [facility] [address] [place] [address] Dr. Tyrell Casillas Protein [Mass/Vol] 7.8 g/dL Normal 6.4-8.2 [facility] Comment on above: Performed By: #### C MP, CK, LIPID #### [facility] [address] [address] [address] Tyrell Casillas Sodium [Moles/Vol] 139 mmol/L Normal 136-145 [facility] Comment on above: Performed By: #### C MP, CK, LIPID #### [facility] [address] [address] [address] Tyrell Casillas Urea nitrogen [Mass/Vol] 15.0 mg/dL Normal 7.0-18.0 [facility] Comment on above: Performed By: #### C MP, CK, LIPID #### [facility] [address] [address] [address] Tyrell Casillas Urea nitrogen/Creatinine [Mass ratio] 17.6 mg/mg Normal [facility] Comment on above: Performed By: #### C MP, CK, LIPID #### [facility] [address] [address] [address] Tyrell Casillas Abstracton 07-11-2022 Abstract [id number] Gretchen Delatorre 1950 [facility] Provider Department Center 07/11/2022 KYRA SANTIZO [facility] Family History Family history unknown: Yes Normal [facility] Abstracton 07-10-2022 Abstract [id number] Gretchen Delatorre 1950 [facility] Provider Department Center 07/10/2022 KYRA SANTIZO [facility] Family History Family history unknown: Yes [facility] Coding Summaryon 05-31-2020 Coding Summary CODING DATE: 05/31/2020 [facility] STATUS: Home PAYOR: Medicare MC [...] Eugenie George Date Saved: 05/31/2020 01:32 pm [facility] Provider Orderson 05-23-2020 Provider Orders [id number] .00[employer]GTIFF [facility] Coding Summaryon 05-19-2020 Coding Summary CODING DATE: 05/19/2020 [facility] STATUS: Home PAYOR: Medicare MC APC DESCRIPTION 5115 Level 5 Musculoskeletal Procedures ADMIT DX: REASON FOR VISIT DX: M16.11 Unilateral primary osteoarthritis, right hip FINAL DX: PRINCIPAL: M16.11 Unilateral primary osteoarthritis, right hip SECONDARY: I10 Essential (primary) hypertension I25.10 Atherosclerotic heart disease of creek coronary artery without angina pectoris Z86.73 Personal history of transient ischemic attack (TIA), and cerebral infarction without residual deficits PYMT PROC APC STAT DESCRIPTION DOCTOR NAME DATE 5114 J1 Arthroplasty, acetabular [place] And and proximal femoral prosthetic replacement (total [...] Kee Revised Date Saved: 05/18/2020 12:22 pm [facility] Consent Formson 05-18-2020 Consent Forms [id number]#1 .00[facility] Medication Managementon 05-03 Medication Management [id number]#[address] [place] [address] Outside Recordson 05-18-2020 Outside Records [id number]#[address] [place] [address] Provider Orderson 05-18-2020 Provider Orders [id number]#[address] [place] [address] Telemetry Stripson 0 Telemetry Strips [id number]#1 .00[facility] .Auto Diff 1on 05-17-2020 Auto Dunn % 7 % Normal 11-14 [facility] Comment on above: Performed By: #### 7 [id number], [id number], [id number] #### [facility] (DEFAULT) [address] [place] [address] Baso Abs# 0.0 x10 Normal 0.0-0.2 [facility] Comment on above: Performed By: #### 7 [id number], [id number], [id number] #### [facility] (DEFAULT) [address] [place] [address] Basophils/100 WBC (Bld) 0.2 % Normal 0.2-2.0 [facility] Comment on above: Performed By: #### 7 [id number], [id number], [id number] #### [facility] (DEFAULT) [address] [place] [address] Eos Abs# 0.1 x10 Normal 0.0-0.4 [facility] Comment on above: Performed By: #### 7 234393, [id number], [id number] #### [facility] (DEFAULT) [address] [place] [address] Eosinophils/100 WBC (Bld) 1.5 % Normal 0.9-4.0 [facility] Comment on above: Performed By: #### 7 880659, [id number], [id number] #### [facility] (DEFAULT) [address] [place] [address] Lymphocytes (Bld) [#/Vol] 1.3 x10 Normal 1.3-2.9 [facility] Comment on above: Performed By: #### 7 123873, [id number], [id number] #### [facility] (DEFAULT) [address] [place] [address] Lymphocytes/100 WBC (Bld) 15 % Normal 14-48 [facility] Comment on above: Performed By: #### 7 [id number], [id number], [id number] #### [facility] (DEFAULT) [address] [place] [address] Dunn Abs# 0.6 x10 Normal 0.0-0.8 [facility] Comment on above: Performed By: #### 7 [id number], [id number], [id number] #### [facility] (DEFAULT) [address] [place] [address] Neut Abs# 6.4 x10 Normal 1.5-9.2 [facility] Comment on above: Performed By: #### 7 890071, [id number], [id number] #### [facility] (DEFAULT) [address] [place] [address] Neutrophils/100 WBC (Bld) 76 % Normal 44-88 [facility] Comment on above: Performed By: #### 7 421723, [id number], [id number] #### [facility] (DEFAULT) [address] [place] [address] CBC w/ Auto Diffon 05-17- 0 Erythrocyte distribution width (RBC) [Ratio] 11.9 % Normal 11.5-15.0 [facility] Comment on above: Performed By: #### 7 813539, [id number], [id number] #### [facility] (DEFAULT) [address] [place] [address] Hematocrit (Bld) [Volume fraction] 26.9 % Low 34.8-51.9 [facility] Comment on above: Performed By: #### 7 005087, [id number], [id number] #### [facility] (DEFAULT) [address] [place] [address] Hemoglobin (Bld) [Mass/Vol] 9.2 g/dL Low 11.8-17.7 [facility] Comment on above: Performed By: #### 7 951779, [id number], [id number] #### [facility] (DEFAULT) [address] [place] [address] Man Diff? Auto Normal [facility] Comment on above: Performed By: #### 7 [id number], [id number], [id number] #### [facility] (DEFAULT) [address] [place] [address] MCH (RBC) [Entitic mass] 32 pg Normal 24-34 [facility] Comment on above: Performed By: #### 7 127602, [id number], [id number] #### [facility] (DEFAULT) [address] [place] [address] MCHC (RBC) [Mass/Vol] 34 g/dL Normal 26-[address] [facility] Comment on above: Performed By: #### 7 650594, [id number], [id number] #### [facility] (DEFAULT) [address] [place] [address] MCV (RBC) [Entitic vol] 94 fL Normal 81-100 [facility] Comment on above: Performed By: #### 7 596853, [id number], [id number] #### [facility] (DEFAULT) [address] [place] [address] Platelet mean volume (Bld) [Entitic vol] 9.4 fL Normal 6.3-10.2 [facility] Comment on above: Performed By: #### 7 972746, [id number], [id number] #### [facility] (DEFAULT) [address] [place] [address] Platelets (Bld) [#/Vol] 203 x10 Normal 138-427 [facility] Comment on above: Performed By: #### 7 574309, [id number], [id number] #### [facility] (DEFAULT) [address] [place] [address] RBC (Bld) [#/Vol] 2.87 x10 Low 3.70-5.30 [facility] Comment on above: Performed By: #### 7 752780, [id number], [id number] #### [facility] (DEFAULT) [address] [place] [address] WBC (Bld) [#/Vol] 8.5 x10 Normal 3.5-10.5 [facility] Comment on above: Performed By: #### 7 950177, [id number], [id number] #### [facility] (DEFAULT) [address] [place] [address] Education Noteon 05-17-2020 Education Note Education Materials [...] done to rule of a DVT. Normal [facility] 05-17-2020 Tube Collected Yes [facility] Comment on above: Performed By: #### 7 978202, [id number], [id number] #### [facility] (DEFAULT) [address] [place] [address] Inpatient Patient Summaryon 05-17-2020 Inpatient Patient Summary [address] [address] Patient Discharge Instructions Name: GRETCHEN DELATORRE : 1950 Patient Address: [address] [facility] [address] [facility] [address] Primary Care Provider: Name: DAKSHA OREILLY After you are discharged if you find you have any questions, please, call [phone] ext [phone] to speak to a nurse. Discharge Diagnosis: Primary osteoarthritis of right hip Prescription Information: If you have been given a prescription for narcotics, seek immediate medical attention if you have any difficulty breathing or any sudden status changes such as confusion and sleepiness. If you or anyone you know is experiencing suicidal thoughts, mental health, alcohol and/or drug addiction problems; contact the [facility] 26/05 Crisis Hotline -text 4hope to 741741. If you received any narcotics, sedation, or [...] business decisions or sign any legal documents [facility] would like to thank you for allowing us to assist you with your healthcare needs. The following includes patient education materials and information regarding your injury/illness. GRETCHEN DELATORRE has been given the following list of follow-up instructions, prescriptions, and patient education materials: Follow-up Instructions With: Address: When: [place] [address] [facility], [facility] [address] [place] [address] Business (2) 05/25/2020 2:00 PM With: Address: When: DAKSHA OREILLY [address] [facility], [place] [address] Business (1) Medications During the [...] for Disease Control and Prevention July 2014 [facility] Nutrition Noteon 05-17-2020 Nutrition Note Pt eating well avg 70-100% of meals and taking supplements as ordered. No new wts. Labs reviewed, post op anemia noted. No new rec'd at this time. Will continue to follow. [facility] Pharmacy Noteon 05-17-2020 Pharmacy Note [...] NEEDED FOR PAIN OMEGA-3 - BID PER CANDY NOTE - Medications Removed from List: state reason (i.e. no longer taking, strength change, etc) VIT A 2,000 - STRENGTH INCORRCT IBUPROFEN - NO STRENGTH ATTACHED TO MED MJAGNESIUM- NO STRENGTH ATTACHED TO MED VITAMIN A- NO STRENGTH ATTACHED TO MED Other Comments: [Electronically Signed on: 05/17/2020 08:32 EDT] Ethel Echavarria [Verified on: 05/17/2020 08:32 EDT] Ethel Echavarria [facility] Progress Note - Nurseaster 05-03 Progress Note - Nurse Dr. Aguila visited et changed dressing on right hip. Mod. amt of bloody drainage noted on old dressing. Area cleansed with normal saline. Incision well approximated, bruising et edema surround site. No active bleeding noted. ABD. with Primapore applied to site. Pt. tolerated well. [Electronically Signed on: 05/17/2020 17:30 EDT] Patricia Bustillos RN [Verified on: 05/17/2020 17:30 EDT] Patricia Bustillos RN [facility] Progress Note-Physicianon Progress Note-Physician DATE [...] Win's office. Bert Aguila DO JOB #: [id number] [Electronically Signed on: 05/18/2020 11:35 EDT] BERT AGUILA DO [Verified on: 05/18/2020 11:35 EDT] BERT AGUILA DO [Transcribed on: 05/17/2020 14:48 EDT] [facility] .Auto Diff 1on 05-16-2020 Auto Dunn % 9 % Normal 1-12 [facility] Comment on above: Performed By: #### 7 [id number], [id number], [id number] #### [facility] (DEFAULT) [address] [place] [address] Baso Abs# 0.0 x10 Normal 0.0-0.2 [facility] Comment on above: Performed By: #### 7 [id number], [id number], [id number] #### [facility] (DEFAULT) [address] [place] [address] Basophils/100 WBC (Bld) 0.1 % Low 0.2-2.0 [facility] Comment on above: Performed By: #### 7 [id number], [id number], [id number] #### [facility] (DEFAULT) [address] [place] [address] Eos Abs# 0.0 x10 Normal 0.0-0.4 [facility] Comment on above: Performed By: #### 7 945962, [id number], [id number] #### [facility] (DEFAULT) [address] [place] [address] Eosinophils/100 WBC (Bld) 0.2 % Low 0.9-4.0 [facility] Comment on above: Performed By: #### 7 [id number], [id number], [id number] #### [facility] (DEFAULT) [address] [place] [address] Lymphocytes (Bld) [#/Vol] 1.8 x10 Normal 1.3-2.9 [facility] Comment on above: Performed By: #### 7 [id number], [id number], [id number] #### [facility] (DEFAULT) [address] [place] [address] Lymphocytes/100 WBC (Bld) 14 % Normal 14-48 [facility] Comment on above: Performed By: #### 7 [id number], [id number], [id number] #### [facility] (DEFAULT) [address] [place] [address] Dunn Abs# 1.1 x10 High 0.0-0.8 [facility] Comment on above: Performed By: #### 7 [id number], [id number], [id number] #### [facility] (DEFAULT) [address] [place] [address] Neut Abs# 9.9 x10 High 1.5-9.2 [facility] Comment on above: Performed By: #### 7 838189, [id number], [id number] #### [facility] (DEFAULT) [address] [place] [address] Neutrophils/100 WBC (Bld) 77 % Normal 44-88 [facility] Comment on above: Performed By: #### 7 [id number], [id number], [id number] #### [facility] (DEFAULT) [address] [place] [address] CBC w/ Auto Diffon 0 Erythrocyte distribution width (RBC) [Ratio] 12.1 % Normal 11.5-15.0 [facility] Comment on above: Performed By: #### 7 412464, [id number], [id number] #### [facility] (DEFAULT) [address] [place] [address] Hematocrit (Bld) [Volume fraction] 30.8 % Low 34.8-51.9 [facility] Comment on above: Performed By: #### 7 898345, [id number], [id number] #### [facility] (DEFAULT) [address] [place] [address] Hemoglobin (Bld) [Mass/Vol] 10.5 g/dL Low 11.8-17.7 [facility] Comment on above: Performed By: #### 7 249875, [id number], [id number] #### [facility] (DEFAULT) [address] [place] [address] Man Diff? Auto Normal [facility] Comment on above: Performed By: #### 7 684139, [id number], [id number] #### [facility] (DEFAULT) [address] [place] [address] MCH (RBC) [Entitic mass] 32 pg Normal 24-34 [facility] Comment on above: Performed By: #### 7 061873, [id number], [id number] #### [facility] (DEFAULT) [address] [place] [address] MCHC (RBC) [Mass/Vol] 34 g/dL Normal 26-[address] [facility] Comment on above: Performed By: #### 7 108120, [id number], [id number] #### [facility] (DEFAULT) [address] [place] [address] MCV (RBC) [Entitic vol] 93 fL Normal 81-100 [facility] Comment on above: Performed By: #### 7 006181, [id number], [id number] #### [facility] (DEFAULT) [address] [place] [address] Platelet mean volume (Bld) [Entitic vol] 9.2 fL Normal 6.3-10.2 [facility] Comment on above: Performed By: #### 7 560733, [id number], [id number] #### [facility] (DEFAULT) [address] [place] [address] Platelets (Bld) [#/Vol] 238 x10 Normal 138-427 [facility] Comment on above: Performed By: #### 7 835428, [id number], [id number] #### [facility] (DEFAULT) [address] [place] [address] 98383 RBC (Bld) [#/Vol] 3.31 x10 Low 3.70-5.30 [facility] Comment on above: Performed By: #### 7 732972, [id number], [id number] #### [facility] (DEFAULT) [address] [place] [address] 02865 WBC (Bld) [#/Vol] 12.9 x10 High 3.5-10.5 [facility] Comment on above: Performed By: #### 7 840936, [id number], [id number] #### [facility] (DEFAULT) [address] [place] [address] Progress Note-Physicianon Progress Note-Physician DATE OF POSTOPERATIVE [...] PROGNOSIS: Good. Bert Aguila DO JOB #: [id number] [Electronically Signed on: 05/17/2020 11:24 EDT] BERT AGUILA DO [Verified on: 05/17/2020 11:24 EDT] BERT AGUILA DO [Transcribed on: 05/16/2020 13:06 EDT] [facility] Normal [facility] .Auto Diff 1on 05-15-2020 Auto Dunn % 1 % Normal 1-12 [facility] Comment on above: Performed By: #### 7 302546, [id number], [id number] #### [facility] (DEFAULT) [address] [place] [address] Baso Abs# 0.0 x10 Normal 0.0-0.2 [facility] Comment on above: Performed By: #### 7 735177, 64445371, [id number] #### [facility] (DEFAULT) [address] [place] [address] Basophils/100 WBC (Bld) 0.1 % Low 0.2-2.0 [facility] Comment on above: Performed By: #### 7 250210, [id number], [id number] #### [facility] (DEFAULT) [address] [place] [address] 86122 Eos Abs# 0.0 x10 Normal 0.0-0.4 [facility] Comment on above: Performed By: #### 7 257010, 20471805, [id number] #### [facility] (DEFAULT) [address] [place] [address] Eosinophils/100 WBC (Bld) 0.1 % Low 0.9-4.0 [facility] Comment on above: Performed By: #### 7 160141, 45600769, [id number] #### [facility] (DEFAULT) [address] [place] [address] 54366 Lymphocytes (Bld) [#/Vol] 0.4 x10 Low 1.3-2.9 [facility] Comment on above: Performed By: #### 7 873437, 37743036, [id number] #### [facility] (DEFAULT) [address] [place] [address] 48816 Lymphocytes/100 WBC (Bld) 4 % Low 14-48 [facility] Comment on above: Performed By: #### 7 323420, 03097601, [id number] #### [facility] (DEFAULT) [address] [place] [address] Dunn Abs# 0.2 x10 Normal 0.0-0.8 [facility] Comment on above: Performed By: #### 7 622726, [id number], [id number] #### [facility] (DEFAULT) [address] [place] [address] 22530 Neut Abs# 10.0 x10 High 1.5-9.2 [facility] Comment on above: Performed By: #### 7 766494, [id number], [id number] #### [facility] (DEFAULT) [address] [place] [address] 58920 Neutrophils/100 WBC (Bld) 94 % High 44-88 [facility] Comment on above: Performed By: #### 7 966375, 57248757, [id number] #### [facility] (DEFAULT) [address] [place] [address] Anesthesia Noteon 05-15-2020 Anesthesia Note Patient: LA [...] AAA (abdominal aortic aneurysm) / SNOMED CT 472774707 / Confirmed CAD (coronary artery disease) / SNOMED CT 65496616 / Confirmed Myocardial infarct / SNOMED CT 70852383 / Confirmed Resolved: CVA, old, cognitive deficits / SNOMED CT 0615997440 Histories Family History: Entire family history is negative. Procedure history: AAA - Abdominal aortic aneurysm (348347931) in 2012 at 62 Years. AAA - Abdominal aortic aneurysm (144949377) in 2005 at 55 Years. quaddruple cardiac byapss in 2005 at 55 Years. back surgery in 2004 at 54 Years. knee scope in 2004 at 54 Years. Comments: 04/27/2020 14:05 EDT - Abimbola Rodriguez RN right Hip arthroplasty (502694030) in 2003 at 53 Years. AAA - Abdominal aortic aneurysm (874672767) in 2002 at 52 Years. Social History [...] ECG interpretation: SR, occ PVCs, NSTWA. Plan [place] [employer]#( A) physical status classification: Class III. Anesthetic Preoperative Plan Anesthesia: General. . Anesthetic plan, risks, benefits, and alternatives discussed with the patient and/or family. Patient verbalized understanding. Informed consent was given. Consent was signed by the patient. [Electronically Signed on: 05/15/2020 08:26 EDT] Tom Casiano MD [Verified on: 05/15/2020 08:26 EDT] Tom Casiano MD Normal [facility] CBC w/ Auto Diffon 0 Erythrocyte distribution width (RBC) [Ratio] 12.1 % Normal 11.5-15.0 [facility] Comment on above: Performed By: #### 7 671920, 77942233, [id number] #### [facility] (DEFAULT) [address] [place] [address] Hematocrit (Bld) [Volume fraction] 33.2 % Low 34.8-51.9 [facility] Comment on above: Performed By: #### 7 406470, 49828643, [id number] #### [facility] (DEFAULT) [address] [place] [address] Hemoglobin (Bld) [Mass/Vol] 11.5 g/dL Low 11.8-17.7 [facility] Comment on above: Performed By: #### 7 200154, 34801781, [id number] #### [facility] (DEFAULT) [address] [place] [address] Man Diff? Auto Normal [facility] Comment on above: Performed By: #### 7 906093, 96453659, [id number] #### [facility] (DEFAULT) [address] [place] [address] MCH (RBC) [Entitic mass] 32 pg Normal 24-34 [facility] Comment on above: Performed By: #### 7 065373, 74317651, [id number] #### [facility] (DEFAULT) [address] [place] [address] MCHC (RBC) [Mass/Vol] 35 g/dL Normal 26-[address] [facility] Comment on above: Performed By: #### 7 862281, 72799547, [id number] #### [facility] (DEFAULT) [address] [place] [address] 10310 MCV (RBC) [Entitic vol] 92 fL Normal 81-100 [facility] Comment on above: Performed By: #### 7 960379, 79655418, [id number] #### [facility] (DEFAULT) [address] [place] [address] 56765 Platelet mean volume (Bld) [Entitic vol] 9.5 fL Normal 6.3-10.2 [facility] Comment on above: Performed By: #### 7 210569, 76821891, [id number] #### [facility] (DEFAULT) [address] [place] [address] 27119 Platelets (Bld) [#/Vol] 205 x10 Normal 138-427 [facility] Comment on above: Performed By: #### 7 742672, 39649906, [id number] #### [facility] (DEFAULT) [address] [place] [address] 60435 RBC (Bld) [#/Vol] 3.62 x10 Low 3.70-5.30 [facility] Comment on above: Performed By: #### 7 572195, 84326232, [id number] #### [facility] (DEFAULT) [address] [place] [address] 03890 WBC (Bld) [#/Vol] 10.6 x10 High 3.5-10.5 [facility] Comment on above: Performed By: #### 7 647773, 81097377, [id number] #### [facility] (DEFAULT) [address] [place] [address] History and Physicalon 05-15 History and Physical [id number] .00OTGTIFF Normal [facility] MAGR Intraoperative Recordon 05-15-2020 MAGR Intraoperative Record MAGR Intra-Op Record Summary Primary Physician: Bairon Win DO Finalized Date/Time: 05/15/20 17:18:47 Pt. Name: GRETCHEN DELATORRE/Sex: 1950 MALE Med Rec #: [id number] Physician: Bairon Win DO Financial #: [id number] Pt. Type: O Room/Bed: [facility]/ Admit/Disch: 05/15/20 06:07:00 - Institution: Case Times [...] Role Performed Surgeon - Primary Anesthesiologist of Telephone Diaphragm Assembler Record Time In 05/15/20 09:01:00 05/15/20 09:01:00 05/15/20 09:01:00 Time Out 05/15/20 11:20:00 05/15/20 11:20:00 05/15/20 11:20:00 Procedure Arthroplasty Total Arthroplasty Total Arthroplasty Total Hip(Right) Hip(Right) Hip(Right) Last Modified By: Etehl Gibson RN, Stephanie RN Sauer, Stephanie RN 05/15/20 14:15:50 05/15/20 14:15:50 05/15/20 14:15:50 Entry 4 Entry 5 Entry 6 Case Attendee Megan GONSALES, Mauricio Foreman Brittany E CST [place]ina STACKER TENDER Role Performed Scrub Personnel Electroplating Sales Representative Electroplating Sales Representative Time In 05/15/20 09:01:00 05/15/20 09:01:00 05/15/20 09:01:00 Time Out 05/15/20 11:20:00 05/15/20 11:20:00 05/15/20 11:20:00 Procedure Arthroplasty Total Arthroplasty Total Arthroplasty Total Hip(Right) Hip(Right) Hip(Right) Last Modified By: Ethel Gibson RN, Stephanie RN Sauer, Stephanie RN 05/15/20 14:15:50 05/15/20 14:15:50 05/15/20 14:15:50 General Comments: CHRISTELLE HIGGINSIsrrael DEPUY REP Surgical Procedures MAGR Pre-Care Text: A.20 Verifies operative procedure, surgical site, and laterality Im.150 Develops individualized plan of care Entry 1 Procedure Arthroplasty Total Hip Primary Procedure Yes Primary Surgeon Bairon Win Right Pedro DO Surgeon Comment RIGHT TOTAL HIP Start [...] Final Counts Ethel Gibson RN, Performed By Adina Guzman CST Final Count Time 05/15/20 10:45:00 Surgeon notified [...] By: Pedro Edgar DO Size 54MM 58MM Psychotherapist Counselor De[employer]uy DEPUY DEPUY Catalog # Lot Number [id number] Expiration Date 03/02/30 04/02/30 Serial Number REF [id number] REF [id number] REF [id number] Device Identifier Human Readable PAUL Machine Readable PAUL MR Class Implant Usage Data Site Hip R Hip R Hip R Quantity 1 1 1 Reason for Explant Reason Not Retained Explant Disposition Stock Order Lister Sterility External Indicator Result Internal Indicator Results Outcome Met (O.30) Yes Yes Yes Last Modified By: Ethel Gibson RN, Stephanie RN Sauer, Stephanie RN 05/15/20 15:23:55 05/15/20 14:52:24 05/15/20 15:23:55 Entry 4 Entry 5 Entry 6 Procedure Arthroplasty Total Arthroplasty Total Arthroplasty Total Hip(Right) Hip(Right) Hip(Right) Implant Action Implant Implant Implant Description DEPO&P Pro ACETABULAR LINER DEPO&P Pro CANCELLOUS BONE DEPO&P Pro CEMENTLESS SCREW FEMORAL STEM Implant Information Implant/Explant 05/15/20 10:25:00 05/15/20 10:25:00 05/15/20 10:25:00 Date/Time Implanted/Explanted Bairon Win James Huddleston, James By: Pedro Edgar DO Size 38 ID 56OD 6.5MM X 25MM KA SIZE 11 Psychotherapist Counselor DEPUY DEPUY DEPUY Catalog # Lot Number [id number] Expiration Date 12/31/24 10/02/29 07/03/24 Serial Number REF [id number] REF [id number] REF [id number] Device Identifier Human Readable PAUL Machine Readable PAUL MR Class Implant Usage Data Site Hip R Hip R Hip R Quantity 1 2 1 Reason for Explant Reason Not Retained Explant Disposition Stock Order Lister Sterility External Indicator Result Internal Indicator Results Outcome Met (O.30) Yes Yes Yes Last Modified By: Ethel Gibson RN, Stephanie RN Sauer, Stephanie RN 05/15/20 15:23:55 05/15/20 15:23:55 05/15/20 15:23:55 Entry 7 Procedure Arthroplasty Total Hip(Right) Implant Action Implant Description DEPUY M SPEC METAL FEMORAL HEAD Implant Information Implant/Explant 05/15/20 10:25:00 Date/Time Implanted/Explanted Bairon Win By: Pedro WHITE Size 036MM / TAPER Psychotherapist Counselor DEPUY Catalog # Lot Number [id number] Expiration Date 07/03/24 Serial Number REF 1365-51-000 Device Identifier Human Readable PAUL Machine Readable PAUL MR Class Implant Usage Data Site Hip R Quantity 1 Reason for Explant Reason Not Retained Explant Disposition Stock Order Lister Sterility External Indicator Result Internal Indicator Results [...] Signed By: Ethel Gibson RN 05/15/[facility] MAGR PACU Record Summary Primary Physician: Bairon Win DO Finalized Date/Time: 05/15/20 12:19:32 Pt. Name: GRETCHEN DELATORRE D.O.B./Sex: 1950 MALE Med Rec #: [id number] Physician: Bairon Win DO Financial #: [id number] Pt. Type: D Room/Bed: 221/1 Admit/Disch: 05/15/20 06:07:00 - Institution: PACU Case Times MAGR Entry 1 In PACU I 05/15/20 11:15:00 Discharge from PACU 05/15/20 12:05:00 I Last Modified By: Francesca Pastrana RN 05/15/20 12:19:29 Finalized By: Francesca Pastrana RN Document Signatures Signed By: Francesca Pastrana RN 05/15/20 12:19 [facility] MAGR Preoperative Recordon 0 05-15-2020 MAGR Preoperative Record MAGR Pre-Op Record Summary Primary Physician: Bairon Win DO Finalized Date/Time: 05/15/20 13:36:44 Pt. Name: GRETCHEN DELATORRE /Sex: 1950 MALE Med Rec #: [id number] Physician: Bairon Win DO Financial #: [id number] Pt. Type: O Room/Bed: [facility]/1 Admit/Disch: 05/15/20 06:07:00 - Institution: Pre-Op Case [...] Signed By: Francesca Pastrana RN 05/15/20 13:36 [facility] Nutrition Noteon 05-15-2020 Nutrition Note Pt admitted [...] minerals already in place. To follow. Normal [facility] Operative Report - Surgeon/P maryfrancesundar 05-15-2020 Operative Report - Surgeon/Physician Preoperative diagnosis: [...] impacted a 56 mm gription cup ( [employer]) this was secured with 2 6.5 mm [...] both with saline and then also diluted [place] dine mixture. The fascial planes were injected [...] on: 05/15/2020 12:17 EDT] Bairon Win DO [facility] Pharmacy Noteon 05-15-2020 Pharmacy Note [...] Tahira Reyna [Verified on: 05/15/2020 15:26 EDT] Tahira Reyna [facility] XR Hip Complete Righton 05-03 [...] Haroon Javier 05/15/20 11:59 a Technologist: Poncho ARCOS [facility] ABORhon 05-14-2020 ABO and Rh group Nom (d) Hx Check: Not Found Anti-A: 4+ Anti-B: 0 Anti-D: 4+ DCon: NT A1: 0 B: 4+ ABORh Interp: A [facility] Comment on above: Performed By: #### 1 [id number] #### [facility] (DEFAULT) [address] [place] [address] ABORh Retypeon 05-14-2020 ABO and Rh group Nom (d) Ordered by Discern. Anti-A: 4+ Anti-B: 0 Anti-D: 4+ DCon: NT A1: 0 B: 4+ ABORh Retype: A [facility] Comment on above: Performed By: #### 1 [id number] #### [facility] (DEFAULT) [address] [place] [address] 87312 ABSC Gelon 05-14-2020 ABSC Gel Negative Normal [facility] Comment on above: Performed By: #### 1 [id number] #### [facility] (DEFAULT) [address] [place] [address] 58022 Blood Bank IDon 05-14-2020 Blood Bank ID BBID: [id number] [facility] Comment on above: Performed By: #### 1 [id number] #### [facility] (DEFAULT) [address] [place] [address] 29150 H&Hon 05-14-2020 Hematocrit (Bld) [Volume fraction] 38.3 % Normal 34.8-51.9 [facility] Comment on above: Performed By: #### 1 [id number] #### [facility] (DEFAULT) [address] [place] [address] Hemoglobin (Bld) [Mass/Vol] 13.3 g/dL Normal 11.8-17.7 [facility] Comment on above: Performed By: #### 1 [id number] #### [facility] (DEFAULT) [address] [place] [address] SARS-CoV-2 (COVID-19) PCRon 05-14-2020 COVID-19 PCR Not Detected Normal Not Detected [facility] Comment on above: Performed By: #### 1 [id number] #### [facility] (DEFAULT) [address] [place] [address] Progress Note - Nurseon 05-03 Progress Note - Nurse Spoke with pt regarding arrival time of 0600 and NPO after midnight. Pt instructed he will need to be tested for COVID on Friday when he comes in for type and screen. Verbalized understanding. [Electronically Signed on: 05/12/2020 09:38 EDT] Sara Alvarez RN [Verified on: 05/12/2020 09:38 EDT] Sara Alvarez RN [facility] Coding Summaryon 05-10-2020 Coding Summary CODING DATE: 05/10/2020 [facility] STATUS: Home PAYOR: Medicare MC [...] terminology. Coded By: Eugenie George Date Saved: 05/10/2020 01:27 pm [facility] Billing Authorizationson Billing Authorizations [id number] .00[facility] Medication Managementon Medication Management [id number] C[facility] Summaryon 05-08-2020 Coding Summary CODING DATE: 05/08/2020 [facility] STATUS: Home PAYOR: Medicare MC [...] Eugenie George Date Saved: 05/08/2020 01:38 pm [facility] Progress Note - Nurseon 04-04 Progress Note - Nurse PAT review done sara villarreal Cardiac workup, no orders received. [Electronically Signed on: 05/02/2020 07:05 EDT] Francesca Pastrana RN [Verified on: 05/02/2020 07:05 EDT] Francesca Pastrana RN [facility] Progress Note - Nurse Dr. Burgos review s PAT information and testing results. Request copy of the stress test and last cardiology office notes. Call made to [facility], spoke with Annemarie [facility]. Requested above information. Release of information faxed for records request. [Electronically Signed on: 05/01/2020 09:47 EDT] Maritza Teresa RN [Verified on: 05/01/2020 09:47 EDT] Maritza Teresa RN [facility] C MRSA Screenon 04-28-2020 C MRSA Screen Negative [facility] Comment on above: Performed By: #### 1 [id number] #### [facility] (DEFAULT) [address] [place] [address] Provider Orderson 04-28-2020 Provider Orders [id number] .00OTGTIFF [facility] .Auto Diff 1on 04-27-2020 Auto Dunn % 9 % Normal 12 [facility] Comment on above: Performed By: #### 7 [id number], [id number], [id number] #### [facility] (DEFAULT) [address] [place] [address] Baso Abs# 0.0 x10 Normal 0.0-0.2 [facility] Comment on above: Performed By: #### 7 675500, [id number], [id number] #### [facility] (DEFAULT) [address] [place] [address] 47864 Basophils/100 WBC (Bld) 0.4 % Normal 0.2-2.0 [facility] Comment on above: Performed By: #### 7 032058, [id number], [id number] #### [facility] (DEFAULT) [address] [place] [address] 93471 Eos Abs# 0.1 x10 Normal 0.0-0.4 [facility] Comment on above: Performed By: #### 7 971820, [id number], [id number] #### [facility] (DEFAULT) [address] [place] [address] 57013 Eosinophils/100 WBC (Bld) 1.7 % Normal 0.9-4.0 [facility] Comment on above: Performed By: #### 7 933276, [id number], [id number] #### [facility] (DEFAULT) [address] [place] [address] Lymphocytes (Bld) [#/Vol] 1.6 x10 Normal 1.3-2.9 [facility] Comment on above: Performed By: #### 7 389938, [id number], [id number] #### [facility] (DEFAULT) [address] [place] [address] 71279 Lymphocytes/100 WBC (Bld) 20 % Normal 14-48 [facility] Comment on above: Performed By: #### 7 712990, [id number], [id number] #### [facility] (DEFAULT) [address] [place] [address] 09455 Dunn Abs# 0.7 x10 Normal 0.0-0.8 [facility] Comment on above: Performed By: #### 7 181780, [id number], [id number] #### [facility] (DEFAULT) [address] [place] [address] 32033 Neut Abs# 5.2 x10 Normal 1.5-9.2 [facility] Comment on above: Performed By: #### 7 [id number], [id number], [id number] #### [facility] (DEFAULT) [address] [place] [address] 24994 Neutrophils/100 WBC (Bld) 69 % Normal 44-88 [facility] Comment on above: Performed By: #### 7 486856, [id number], [id number] #### [facility] (DEFAULT) [address] [place] [address] 30674 BMP Standardon 04-27-2020 eGFR Non AA >60 [facility] Comment on above: Performed By: #### 7 931751, [id number], [id number] #### [facility] (DEFAULT) [address] [place] [address] 55049 eGFR AA >60 [facility] Comment on above: Result Comment: Poultry Boner ramin Kidney disease could be indicated at eGFRs of less than 60 ml/min/1.73m2. Kidney Failure is indicated at less than 15 ml/min/1.73m2 Performed By: #### 7 [id number], [id number], [id number] #### [facility] (DEFAULT) [address] [place] [address] 17776 Anion gap [Moles/Vol] 12.0 mmol/L Normal 5.0-19.0 [facility] Comment on above: Performed By: #### 7 [id number], [id number], [id number] #### [facility] (DEFAULT) [address] [place] [address] 22011 Calcium [Mass/Vol] 9.7 mg/dL Normal 8.9-10.3 [facility] Comment on above: Performed By: #### 7 [id number], [id number], [id number] #### [facility] (DEFAULT) [address] [place] [address] 25296 Chloride [Moles/Vol] 106 mmol/L Normal 101-111 [facility] Comment on above: Performed By: #### 7 [id number], [id number], [id number] #### [facility] (DEFAULT) [address] [place] [address] 01600 CO2 [Moles/Vol] 23 mmol/L Normal 21-32 [facility] Comment on above: Performed By: #### 7 [id number], [id number], [id number] #### [facility] (DEFAULT) [address] [place] [address] 46876 Creatinine [Mass/Vol] 0.72 mg/dL Low 0.90-1.[address] [facility] Comment on above: Performed By: #### 7 [id number], [id number], [id number] #### [facility] (DEFAULT) [address] [place] [address] 32102 Glucose [Mass/Vol] 85.0 mg/dL Normal 74.0-118.0 [facility] Comment on above: Performed By: #### 7 [id number], [id number], [id number] #### [facility] (DEFAULT) [address] [place] [address] 86252 Osmolality [Osmolality] 274 mOsm/L [facility] Comment on above: Performed By: #### 7 [id number], [id number], [id number] #### [facility] (DEFAULT) [address] [place] [address] 67516 Potassium [Moles/Vol] 4.4 mmol/L Normal 3.6-5.[address] [facility] Comment on above: Performed By: #### 7 [id number], [id number], [id number] #### [facility] (DEFAULT) [address] [place] [address] 53570 Sodium [Moles/Vol] 137.0 mmol/L Normal 136.0-144.[address] [facility] Comment on above: Performed By: #### 7 033071, [id number], [id number] #### [facility] (DEFAULT) [address] [place] [address] 38270 Urea nitrogen [Mass/Vol] 16 mg/dL Normal 8-26 [facility] Comment on above: Performed By: #### 7 789255, [id number], [id number] #### [facility] (DEFAULT) [address] [place] [address] 60596 Urea nitrogen/Creatinine [Mass ratio] 22.0 mg/mg High 4.6-16.2 [facility] Comment on above: Performed By: #### 7 193762, [id number], [id number] #### [facility] (DEFAULT) [address] [place] [address] CBC w/ Auto Diffon 0 Erythrocyte distribution width (RBC) [Ratio] 12.2 % Normal 11.5-15.0 [facility] Comment on above: Performed By: #### 7 [id number], [id number], [id number] #### [facility] (DEFAULT) [address] [place] [address] Hematocrit (Bld) [Volume fraction] 38.9 % Normal 34.8-51.9 [facility] Comment on above: Performed By: #### 7 068631, [id number], [id number] #### [facility] (DEFAULT) [address] [place] [address] Hemoglobin (Bld) [Mass/Vol] 13.5 g/dL Normal 11.8-17.7 [facility] Comment on above: Performed By: #### 7 498718, [id number], [id number] #### [facility] (DEFAULT) [address] [place] [address] Man Diff? Auto Normal [facility] Comment on above: Performed By: #### 7 038551, [id number], [id number] #### [facility] (DEFAULT) [address] [place] [address] MCH (RBC) [Entitic mass] 32 pg Normal 24-34 [facility] Comment on above: Performed By: #### 7 553687, [id number], [id number] #### [facility] (DEFAULT) [address] [place] [address] MCHC (RBC) [Mass/Vol] 35 g/dL Normal 26-[address] [facility] Comment on above: Performed By: #### 7 611432, [id number], [id number] #### [facility] (DEFAULT) [address] [place] [address] MCV (RBC) [Entitic vol] 91 fL Normal 81-100 [facility] Comment on above: Performed By: #### 7 [id number], [id number], [id number] #### [facility] (DEFAULT) [address] [place] [address] 76983 Platelet mean volume (Bld) [Entitic vol] 9.3 fL Normal 6.3-10.2 [facility] Comment on above: Performed By: #### 7 564031, [id number], [id number] #### [facility] (DEFAULT) [address] [place] [address] 60481 Platelets (Bld) [#/Vol] 220 x10 Normal 138-427 [facility] Comment on above: Performed By: #### 7 213971, [id number], [id number] #### [facility] (DEFAULT) [address] [place] [address] 96300 RBC (Bld) [#/Vol] 4.26 x10 Normal 3.70-5.30 [facility] Comment on above: Performed By: #### 7 004723, [id number], [id number] #### [facility] (DEFAULT) [address] [place] [address] WBC (Bld) [#/Vol] 7.6 x10 Normal 3.5-10.5 [facility] Comment on above: Performed By: #### 7 988716, [id number], [id number] #### [facility] (DEFAULT) [address] [place] [address] Provider Orderson 04-27-2020 Provider Orders [id number] [facility] UA w Culture if Ind Standard on 04-27-2020 Breakpoint UA [facility] Comment on above: Performed By: #### 1 [id number] #### [facility] (DEFAULT) [address] [place] [address] Color (U) Yellow [facility] Comment on above: Performed By: #### 1 [id number] #### [facility] (DEFAULT) [address] [place] [address] Culture? No [facility] Comment on above: Performed By: #### 1 [id number] #### [facility] (DEFAULT) [address] [place] [address] Glucose (U) [Mass/Vol] Negative Normal [facility] Comment on above: Performed By: #### 1 [id number] #### [facility] (DEFAULT) [address] [place] [address] 57155 Ketones Ql (U) Negative Normal [facility] Comment on above: Performed By: #### 1 [id number] #### [facility] (DEFAULT) [address] [place] [address] Micro? Not Indicated Normal [facility] Comment on above: Performed By: #### 1 [id number] #### [facility] (DEFAULT) [address] [place] [address] 30693 UA Bilirubin Negative Normal [facility] Comment on above: Performed By: #### 1 [id number] #### [facility] (DEFAULT) [address] [place] [address] UA Blood Negative Normal NEGATIVE [facility] Comment on above: Performed By: #### 1 [id number] #### [facility] (DEFAULT) [address] [place] [address] 40675 UA Clarity CLEAR Normal CLEAR [facility] Comment on above: Performed By: #### 1 [id number] #### [facility] (DEFAULT) [address] [place] [address] 98631 UA Leuk Est Negative Normal NEGATIVE [facility] Comment on above: Performed By: #### 1 [id number] #### [facility] (DEFAULT) [address] [place] [address] 19678 UA Nitrite Negative Normal NEGATIVE [facility] Comment on above: Performed By: #### 1 [id number] #### [facility] (DEFAULT) [address] [place] [address] 28216 UA pH 6.5 Normal 5-8 [facility] Comment on above: Performed By: #### 1 [id number] #### [facility] (DEFAULT) [address] [place] [address] 08393 UA Protein Negative Normal NEGATIVE [facility] Comment on above: Performed By: #### 1 [id number] #### [facility] (DEFAULT) [address] [place] [address] 67477 UA Spec Grav <=1.005 Normal 1.001-1.035 [facility] Comment on above: Performed By: #### 1 [id number] #### [facility] (DEFAULT) [address] [place] [address] UA Urobilinogen 0.2 mg/dL Normal 0.2-1.0 [facility] Comment on above: Performed By: #### 1 [id number] #### [facility] (DEFAULT) [address] [place] [address] Urine Source Clean Catch Normal [facility] Comment on above: Performed By: #### 1 [id number] #### [facility] (DEFAULT) [address] [place] [address] Vital Signs Date Time Vital Sign Value Performing Clinician Don carrera 02-18-2024 13:41-0400 Blood Pressure Location Haroon HUNTLEY [facility] [place] 02-18-2024 13:41-0400 Diastolic blood pressure 86 mm[Hg] Haroon HUNTLEY [facility] [place] 02-18-2024 13:41-0400 Heart rate 76 /min Haroon HUNTLEY [facility] [place] 02-18-2024 13:41-0400 Respiratory rate 16 /min Haroon HUNTLEY [facility] [place] 02-18-2024 13:41-0400 Systolic blood pressure 126 mm[Hg] Haroon HUNTLEY [facility] [place] Encounters Encounter Date Encounter Type Care Provider Facility Start: 03-02-2024 End: 03-03-2024 [facility] Start: 03-02-2024 End: 03-02-2024 Patient encounter procedure Haroon HUNTLEY [facility] [place] Start: 02-18-2024 End: 02-19-2024 ambulatory Har[facility]UNTLEY [facility] Start: 02-18-2024 End: 02-18-2024 Patient encounter procedure Haroon R NILL [facility] Start: 03-19-2023 End: 03-19-[address] DAKSHA OREILLY . Facility:[facility] Start: 03-18-2023 End: 03-19-[address] DAKSHA OREILLY . Facility:[facility] Start: 03-18-2023 End: 03-19-2023 ambulatory AMBER KIRBY Facility:[facility] Start: 08-19-2022 End: 08-19-2022 ambulatory BRYCE HUERTA [facility] Start: 08-16-2022 End: 08-17-[address] BRYCE HUERTA Facility:[facility] Start: 06-29-[address] BRYCE HUERTA Fac ility:[facility] Procedures Date Procedure Procedure Detail Performing Clinician Start: 03-18-2023 PSA screening AMBER ARGUELLES Comment on above: Performed By: #### C MP, CK, LIPID #### [facility] [address] [place] [address] Dr. Tyrell Casillas Start: 11-03-2019 Repair of joint of r ight hip Haroon NILL Start: 11-03-2005 Coronary artery bypa ss grafts x 4 Haroon NILL Start: 11-03-2003 Repair of joint of l eft hip Haroon NILL Arthroscopy of knee Haroon NILL Colonoscopy Haroon NILL Insertion of inferio r vena caval filter Haroon NILL Laminectomy Haroon NILL Lysis of adhesions Haroon RAMIRES Repair of recurrent incisional hernia Haroon NILL Repair of ventral hernia Godfrey hael NILL Comment on above: x 3 Immunizations Immunization Date Immunization Notes Care Provider Fa cilileig hann 10-01-2023 influenza virus vaccine, unspecified formulation aHroon HUNTLEY [facility] [place] 02-27-2021 SARS-CoV-2 (COVID-19 ) mRNA BNT-162b2 vax Haroon DEL CIDL [facility] [place] 02-06-2021 SARS-CoV-2 (COVID-19 ) mRNA BNT-162b2 vax Haroon HUNTLEY [facility] [place] Payers Date Payer Category Payer Medicare [id number] 1957 Self-pay 1950 Unknown [id number] 2.16.84 [id number] 1950 Unknown [id number] 2.16.84 [id number] 1950 Unknown [id number] 2.16.84 [id number] 1950 Unknown [id number] 2.16.84 [id number] 1950 Unknown [id number] 2.16.84 [id number] 1950 Unknown [id number] 2.16.8 [id number] 1950 Unknown [id number] 2.16.8 [id number] Social History Date Type Detail Facility Start: 02-18-2024 Tobacco smoking status Never s moked tobacco (finding) [facility] Tobacco smoking status Never Gener al [facility] Sex Assigned At Male [facility] Functional Status Date Assessment Result Facility 02-18-2024 Functional Status N/A General [facility] Clinical Note 02-18-2024 Note Date & Type Note Facility 02-18-2024 Note Chief Complaint consultation for skin lesion HPI Staff 73 year old male presents on consultation from Dr. Oreilly for right chest wall mass. Reports mass has been present for several years. Reports gradual increase in size. Denies soreness or tenderness. Denies bleeding or drainage. History of Present Illness 73 yo male with h/o CAD, NE, htn, hyperlipidemia, CVA, degenerative disc disease, lumbar, osteoarthritis, referred for enlarging skin lesion right chest wall; sore at times, no bleeding or pigmentation change, no h/o skin cancer. Review of Systems PHQ Score Initial Depression Screen Score: 0 SCORE ROS - Provider Constitutional: no fever, no sweats, no weight loss. Eyes: no glasses, no blurred vision, no visual loss. ENMT: no dentures, no hoarseness, no swallowing difficulties, no hearing loss, no ear infection(s), no nose bleeds. Cardiovascular: normal blood pressure, no chest pain, regular heartbeat, no heart murmur. Respiratory: no shortness of breath, no cough, no asthma, no wheezing. Gastrointestinal: no nausea, no vomiting, no diarrhea, no constipation, no blood in stool, no change in bowel habits, no abdominal pain, no hepatitis. Genitourinary: no kidney stones, no urine infection, no dysuria. Musculoskeletal: no pain, no weakness. Skin: no changing moles, no rash, mild skin lumps. Neurologic: no seizures, no epilepsy, no headache. Psychiatric: no emotional or psychiatric problem. Heme/Lymph: no bleeding problems, no anemia, no blood clots, no transfusions. Allergy/Immunologic: no swollen lymph nodes/glands, no IV drug abuse. Other: Additional ROS info: Except as noted in the above Review of Systems and in the History of Present Illness, all other systems have been reviewed and are negative or noncontributory. Physical Exam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
== END 2024-03-02 15:51 | disposition home or self-care (01) ==
LOC: LAB 15:50
PROVIDERS: PCP Family Medicine; Visit Provider Surgery
DX: L98.9 Disorder of the skin and subcutaneous tissue, unspecified (principal)
CPT/HCPCS: 88305

== ENCOUNTER 2024-03-17 11:49 | Outpatient (OUT) | payer MEDICARE, SELFPAY ==
[2024-03-17 13:59] LABS: Free T3 2.71 pg/mL (2.18-3.98); Thyroid Stimulating Hormone 0.846 uIU/mL (0.358-3.740)
== END 2024-03-17 11:50 | disposition home or self-care (01) ==
LOC: LAB 11:51
PROVIDERS: PCP Family Medicine; Visit Provider Family Medicine
DX: E03.9 Hypothyroidism, unspecified (principal)
CPT/HCPCS: 36415; 84436; 84443; 84481

== ENCOUNTER 2024-10-15 10:35 | Outpatient (OUT) | payer MEDICARE, SELFPAY ==
--- OUTSIDE RECORDS SUMMARY | 2024-10-15 10:58 | XMS_ITS | CCD ---
Author Organization [facility] Care Team Providers Care Adult Daycare Coordinator Name Role Phone BRYCE HUERTA Attending Unavailable MIRTA AMBER Admitting Unavailable MIRTAAMBER Consulting Unavailable AMBER KIRBY [...] Unavailable Daksha Oreilly Primary Care Physician Haroon Don Attending Unavailable Nill, Haroon R Admitting Unavailable NILLHaroon R Attending Unavailable Daksha Oreilly Referring Unavailable NILLHaroon Attending Unavailable Allergies Allergy Classification Reported Allergen(s) Allergy Type Date of Onset Reaction(s) Facility (1 source) black walnut pollen extract Drug Allergy [facility] Repository (1 source) Hmg-Coa Reductase Inhibitors (Statins); Translations: [statins] Propensity to adverse reactions (disorder) [facility] Repository (1 source) No Known Medication Allergies; Translations: [No Known Medication Allergies] Propensity to adverse reactions (disorder) [facility] Medications Current Medications Medication Drug Class(es) [...] disease (5 sources) Atherosclerotic heart disease of [place] coronary artery without angina pectoris; Translations: [Coronary [...] Test Name Value Interpretation Reference Range Facility Pathology Noteon 03-05-2024 Pathology Note [id number]#1 .00TIFF Normal [facility] Ambulatory Visit Summaryon 0 03-02-2024 Ambulatory Visit [...] you for choosing us for your care. Gui Shannon [facility] General Surgery Office/Clini c Noteon 03-02-2024 General [...] mRNA BNT-162b2 vax 02/06/2021 Recorded Normal Shannon [facility] Comment on above: Result Comment: Elec tronically Signed By: ARIAN JAIME, Haroon Claudio\Date and Time Signed: 03/02/24 15:16 EDT Gold 03-02-2024 L Specimen: [id number] Received: 03/03/24 Status: MICHELLE Santnaa Num: [id number] Spec Type: Surgical Subm Dr: Haroon Don MD FACS Tissues: A Skin-Other than Cyst, tag, debridement or plastic repair (RT CHEST WALL) Procedures: HE/4, Gross/Micro L4 Age/ Patient Sex Location Account Attending Physician GhulamGretchen 73/M LABELL [id number] Haroon Don MD FACS SPEC NUM: [id number] RECD: 03/03/24 STATUS: MICHELLE SANTANA NUM: [id number] PIYUSH: 03/02/24 DR: Haroon Don MD FACS ENTERED: 03/03/24 [facility] DR: Ava Salomon SPEC TYPE: Surgical DEPT: A[place]EN [place] ORDERED: HE/4, Gross/Micro L4 ORDERED: HE4, Gross/Micro L4 Pathological Diagnosis Skin lesion, right chest wall, excision: Hypertrophic seborrheic keratosis. Gross Description Received in formalin, labeled with the patient's name, date of and right chest wall is a 1.7 x 1.5 x 0.8 cm verrucoid, poe-reyes polypoid fragment of skin. The specimen is inked blue along its resection margin, serially section and entirely submitted in A1?A3. Clinical history: Enlarging, irritated skin tag over several years CPT Codes 23784 -------- -------- Specimen: [id number] Received: 03/03/24 Status: MICHELLE Santana Num: [id number] Spec Type: Surgical Subm Dr: Haroon Don MD FACS Tissues: A Skin-Other than Cyst, tag, debridement or plastic repair (RT CHEST WALL) Procedures: HE/4, Gross/Micro L4 -------- Patient: Gretchen Delatorre [id number] (Continued) -------- Signed (signature on file) Misael Erazo MD 03/04/24 1433 Normal [facility] Ambulatory Visit Summaryon 0 02-18-2024 Ambulatory Visit Summary GRETCHEN DELATORRE A :1950 Visit Date:02/18/2024 Ambulatory Visit Instructions Your Care Team Attending Physician - ARIAN JAIME, Haroon Ellison Primary Care Physician - Afia JAIME, Daksha Referring Physician - Daksha Oreilly MD This [...] Follow-Up Appointments Friday 3:00 PM EDT With: ARIAN JAIME, Haroon Ellison Where: General Surgery Arian/Callie [place] Normal [facility] Facesheeton 02-18-2024 Facesheet [id number]# 1.00TIFF Normal [facility] Physician Referralon 024 Physician Referral [id number]#1 .00TIFF Normal [facility] Physician Referralon 024 Physician Referral [id number]#1 .00TIFF Normal [facility] OCC BLD IMMUNO SCREENon 03-03 OCCULT BLOOD Positive Abnormal NEGATIVE [facility] Comment on above: Performed By: #### C MP, CK, LIPID #### [facility] [address] [place] [address] Dr. Tyrell Casillas CBC AUTO DIFFon 03-18-2023 BASO # 0.0 103/ul Normal 0.0-0.1 [facility] Comment on above: Performed By: #### C BC #### [facility] [address] [place] [address] Dr. Tyrell Casillas Basophils/100 WBC (Bld) 0.5 % Normal 0.2-2.0 [facility] Comment on above: Performed By: #### C BC #### [facility] [address] [place] [address] Dr. Tyrell Casillas EO # 0.2 103/ul Normal 0.0-0.7 [facility] Comment on above: Performed By: #### C BC #### [facility] [address] [place] [address] Dr. Tyrell Casillas Eosinophils/100 WBC (Bld) 2.6 % Normal 0.9-7.0 [facility] Comment on above: Performed By: #### C BC #### [facility] [address] [place] [address] Dr. Tyrell Casillas Erythrocyte distribution width (RBC) [Ratio] 11.7 % Normal 11.0-15.0 [facility] Comment on above: Performed By: #### C BC #### [facility] [address] [place] [address] Dr. Tyrell Casillas Hematocrit (Bld) [Volume fraction] 39.9 % Critically low 42.0-54.0 [facility] Comment on above: Performed By: #### C BC #### [facility] [address] [place] [address] Dr. Tyrell Casillas Hemoglobin (Bld) [Mass/Vol] 13.9 g/dL Critically low 14.0-18.0 [facility] Comment on above: Performed By: #### C BC #### [facility] [address] [place] [address] Dr. Tyrell Casillas IG # 0.02 10e3/ul Normal 0.00-0.03 [facility] Comment on above: Performed By: #### C BC #### [facility] [address] [place] [address] Dr. Tyrell Casillas IG % 0.3 % Normal 0.0-0.5 [facility] Comment on above: Performed By: #### C BC #### [facility] [address] [place] [address] Dr. Tyrell Casillas LYMPH # 1.7 103/ul Normal 1.2-3.8 [facility] Comment on above: Performed By: #### C BC #### [facility] [address] [place] [address] Dr. Tyrell Casillas Lymphocytes/100 WBC (Bld) 28.1 % Normal 20.5-60.0 [facility] Comment on above: Performed By: #### C BC #### [facility] [address] [place] [address] Dr. Tyrell Casillas MANUAL DIFF REQ NO Normal [facility] Comment on above: Performed By: #### C BC #### [facility] [address] [place] [address] Dr. Tyrell Casillas MCH (RBC) [Entitic mass] 32.3 pg Normal 25.9-34.0 [facility] Comment on above: Performed By: #### C BC #### [facility] [address] [place] [address] Dr. Tyrell Casillas MCHC (RBC) [Mass/Vol] 34.8 g/dL Normal 29.9-35.2 [facility] Comment on above: Performed By: #### C BC #### [facility] [address] [place] [address] Dr. Tyrell Casillas MCV (RBC) [Entitic vol] 92.8 fL Normal 80.0-94.0 [facility] Comment on above: Performed By: #### C BC #### [facility] [address] [place] [address] Dr. Tyrell Casillas MONO # 0.5 103/ul Normal 0.3-0.8 [facility] Comment on above: Performed By: #### C BC #### [facility] [address] [place] [address] Dr. Tyrell Casillas Monocytes/100 WBC (Bld) 8.5 % Normal 1.7-12.0 [facility] Comment on above: Performed By: #### C BC #### [facility] [address] [place] [address] Dr. Tyrell Casilals NEUT # 3.5 103/ul Normal 1.4-6.5 [facility] Comment on above: Performed By: #### C BC #### [facility] [address] [place] [address] Dr. Tyrell Casillas Neutrophils/100 WBC (Bld) 60.0 % Normal 43.0-75.0 [facility] Comment on above: Performed By: #### C BC #### [facility] [address] [address] [address] Tyrell Casillas Platelet mean volume (Bld) [Entitic vol] 8.3 fL Critically low 9.5-13.5 [facility] Comment on above: Performed By: #### C BC #### [facility] [address] [address] [address] Tyrell Casillas PLT 200 103/ul Normal 150-450 [facility] Comment on above: Performed By: #### C BC #### [facility] [address] [address] [address] Tyrell Casillas RBC 4.30 106/ul Critically low 4.70-6.10 [facility] Comment on above: Performed By: #### C BC #### [facility] [address] [place] [address] Dr. Tyrell Casillas WBC 5.9 103/ul Normal 4.0-11.0 [facility] Comment on above: Performed By: #### C BC #### [facility] [address] [place] [address] Dr. Tyrell Casillas CPKon 03-18-2023 CK [Catalytic activity/Vol] 505 U/L Critically high 39-308 [facility] Comment on above: Performed By: #### C K #### [facility] [address] [place] [address] Dr. Tyrell Casillas FREE T3on 03-18-2023 FREE T3 2.98 pg/mlL Normal 2.18-3.98 [facility] Comment on above: Performed By: #### T 4, CMP, TSH, FT3, LIPID #### [facility] [address] [place] [address] Dr. Tyrell Casillas GLYCOHEMOGLOBIN A1Con 2022 ADA RECOMMENDATION SEE BELOW Normal [facility] Comment on above: Result Comment: ADA RECOMMENDED LIMIT 4.0 - 6.0 ADA THERAPEUTIC TARGET < 7.0 ACTION SUGGESTED > 7.0 Performed By: #### C MP, CK, LIPID #### [facility] [address] [place] [address] Dr. Tyrell Casillas Glucose [Mass/Vol] 131 mg/dL Normal [facility] Comment on above: Performed By: #### C MP, CK, LIPID #### [facility] [address] [address] [address] Tyrell Casillas HbA1c (Bld) [Mass fraction] 6.2 % Normal 4.5-6.2 [facility] Comment on above: Performed By: #### C MP, CK, LIPID #### [facility] [address] [address] [address] Tyrell Casillas LIPID PROFILEon 03-18-2023 CHOL-HDL RATIO NORM SEE BELOW Normal [facility] Comment on above: Result Comment: 3.3 - 4.4 LOW RISK 4.4 - 7.1 AVERAGE RISK 7.1 - 11.0 MODERATE RISK >11.0 HIGH RISK Performed By: #### T 4, CMP, TSH, FT3, LIPID #### [facility] [address] [place] [address] Dr. Tyrell Casillas Cholesterol [Mass/Vol] 150 mg/dL Normal <=200 [facility] Comment on above: Performed By: #### T 4, CMP, TSH, FT3, LIPID #### [facility] [address] [address] [address] Tyrell Casillas Cholesterol in HDL [Mass/Vol] 42 mg/dL Normal 40-60 [facility] Comment on above: Performed By: #### T 4, CMP, TSH, FT3, LIPID #### [facility] [address] [address] [address] Tyrell Casillas Cholesterol in LDL [Mass/Vol] 84.2 mg/dL Normal [facility] Comment on above: Performed By: #### T 4, CMP, TSH, FT3, LIPID #### [facility] [address] [address] [address] Tyrell Casillas Cholesterol.total/Cho lesterol in HDL [Mass ratio] 3.6 {ratio} Normal [facility] Comment on above: Performed By: #### T 4, CMP, TSH, FT3, LIPID #### [facility] [address] [place] [address] Dr. Tyrell Casillas HDL NORMAL > or = 60 mg/dl - LO W CARDIOVASCULAR RISK <40 mg/dl - HIGH CARDIOVASCULAR RISK Normal [facility] Comment on above: Performed By: #### T 4, CMP, TSH, FT3, LIPID #### [facility] [address] [address] [address] Tyrell Casillas LDL CALC NORMAL SEE BELOW Normal [facility] Comment on above: Result Comment: <100 mg/dl OPTIMAL 100 - 129 mg/dl NEAR OR ABOVE OPTIMAL 130 - 159 mg/dl BORDERLINE HIGH 160 - 189 mg/dl HIGH >190 mg/dl VERY HIGH Performed By: #### T 4, CMP, TSH, FT3, LIPID #### [facility] [address] [address] [address] Tyrell Casillas Triglyceride [Mass/Vol] 119 mg/dL Normal <=150 [facility] Comment on above: Performed By: #### T 4, CMP, TSH, FT3, LIPID #### [facility] [address] [address] [address] Tyrell Casillas VLDL CALC 23.8 mg/dL Normal [facility] Comment on above: Performed By: #### T 4, CMP, TSH, FT3, LIPID #### [facility] [address] [address] [address] Tyrell Casillas PROF 14(COMP METB)on 023 Albumin [Mass/Vol] 4.5 g/dL Normal 3.4-5.0 [facility] Comment on above: Performed By: #### T 4, CMP, TSH, FT3, LIPID #### [facility] [address] [place] [address] Dr. Tyrell Casillas Albumin/Globulin [Mass ratio] 1.1 {ratio} Normal [facility] Comment on above: Performed By: #### T 4, CMP, TSH, FT3, LIPID #### [facility] [address] [place] [address] Dr. Tyrell Casillas ALP [Catalytic activity/Vol] 57 U/L Normal 46-116 [facility] Comment on above: Performed By: #### T 4, CMP, TSH, FT3, LIPID #### [facility] [address] [place] [address] Dr. Tyrell Casillas ALT [Catalytic activity/Vol] 49 U/L Normal 16-63 [facility] Comment on above: Performed By: #### T 4, CMP, TSH, FT3, LIPID #### [facility] [address] [address] [address] Tyrell Casillas Anion gap [Moles/Vol] 12.7 mmol/L Normal [facility] Comment on above: Performed By: #### T 4, CMP, TSH, FT3, LIPID #### [facility] [address] [place] [address] Dr. Tyrell Casillas AST [Catalytic activity/Vol] 35 U/L Normal 15-37 [facility] Comment on above: Performed By: #### T 4, CMP, TSH, FT3, LIPID #### [facility] [address] [place] [address] Dr. Tyrell Casillas Bilirubin [Mass/Vol] 0.4 mg/dL Normal 0.2-1.0 [facility] Comment on above: Performed By: #### T 4, CMP, TSH, FT3, LIPID #### [facility] [address] [place] [address] Dr. Tyrell Casillas Calcium [Mass/Vol] 9.5 mg/dL Normal 8.5-10.1 [facility] Comment on above: Performed By: #### T 4, CMP, TSH, FT3, LIPID #### [facility] [address] [place] [address] Dr. Tyrell Casillas Chloride [Moles/Vol] 106 mmol/L Normal 98-107 [facility] Comment on above: Performed By: #### T 4, CMP, TSH, FT3, LIPID #### [facility] [address] [place] [address] Dr. Tyrell Casillas CO2 [Moles/Vol] 27.4 mmol/L Normal 21.0-32.0 [facility] Comment on above: Performed By: #### T 4, CMP, TSH, FT3, LIPID #### [facility] [address] [place] [address] Dr. Tyrell Casillas Creatinine [Mass/Vol] 0.96 mg/dL Normal 0.70-1.30 [facility] Comment on above: Performed By: #### T 4, CMP, TSH, FT3, LIPID #### [facility] [address] [address] [address] Tyrell Casillas EGFR-AF SLOVENIAN >60 Normal >=60 [facility] Comment on above: Performed By: #### T 4, CMP, TSH, FT3, LIPID #### [facility] [address] [address] [address] Tyrell Casillas EGFR-NON AF SLOVENIAN >60 Normal >=60 [facility] Comment on above: Performed By: #### T 4, CMP, TSH, FT3, LIPID #### [facility] [address] [address] [address] Tyrell Casillas Globulin (S) [Mass/Vol] 4.0 g/dL Normal [facility] Comment on above: Performed By: #### T 4, CMP, TSH, FT3, LIPID #### [facility] [address] [address] [address] Tyrell Casillas Glucose [Mass/Vol] 101 mg/dL Normal 74-106 [facility] Comment on above: Performed By: #### T 4, CMP, TSH, FT3, LIPID #### [facility] [address] [address] [address] Tyrell Casillas Potassium [Moles/Vol] 4.1 mmol/L Normal 3.5-5.1 [facility] Comment on above: Performed By: #### T 4, CMP, TSH, FT3, LIPID #### [facility] [address] [address] [address] Tyrell Casillas Protein [Mass/Vol] 8.5 g/dL Critically high 6.4-8.2 [facility] Comment on above: Performed By: #### T 4, CMP, TSH, FT3, LIPID #### [facility] [address] [address] [address] Tyrell Casillas Sodium [Moles/Vol] 142 mmol/L Normal 136-145 [facility] Comment on above: Performed By: #### T 4, CMP, TSH, FT3, LIPID #### [facility] [address] [place] [address] Dr. Tyrell Casillas Urea nitrogen [Mass/Vol] 18.0 mg/dL Normal 7.0-18.0 [facility] Comment on above: Performed By: #### T 4, CMP, TSH, FT3, LIPID #### [facility] [address] [address] [address] Tyrell Casillas Urea nitrogen/Creatinine [Mass ratio] 18.8 mg/mg Normal [facility] Comment on above: Performed By: #### T 4, CMP, TSH, FT3, LIPID #### [facility] [address] [place] [address] Dr. Tyrell Casillas T4on 03-18-2023 T4 [Mass/Vol] 5.60 ug/dL Normal 4.50-12.10 [facility] Comment on above: Performed By: #### T 4, CMP, TSH, FT3, LIPID #### [facility] [address] [place] [address] Dr. Tyrell Casillas TSHon 03-18-2023 TSH 0.892 uIU/mL Normal 0.358-3.740 [facility] Comment on above: Performed By: #### T 4, CMP, TSH, FT3, LIPID #### [facility] [address] [place] [address] Dr. Tyrell Casillas 36on 10-07-2022 36 Approving, but needs appt for additional refills. Normal [facility] Follow-Upon 08-19-2022 Follow-Up [id number] Gretchen Delatorre 1950 M Date Provider Department Center 08/19/2022 BRCYE MACHADO [facility] Family History Family history unknown: Yes Level of Service:59306 AR OFFICE/OUTPATIENT ESTABLISHED MOD MDM 30-39 MIN Reason for Visit and Comments: Coronary Artery Disease [187] Hypertension [064223] Hyperlipidemia [182] Normal [facility] CPKon 08-16-2022 CK [Catalytic activity/Vol] 444 U/L Critically high 39-308 [facility] Comment on above: Performed By: #### C MP, CK, LIPID #### [facility] [address], [place] [address] Dr. Tyrell Casillas LIPID PROFILEon 08-16-2022 CHOL-HDL RATIO NORM SEE BELOW Normal [facility] Comment on above: Result Comment: 3.3 - 4.4 LOW RISK 4.4 - 7.1 AVERAGE RISK 7.1 - 11.0 MODERATE RISK >11.0 HIGH RISK Performed By: #### C MP, CK, LIPID #### [facility] [address] [address] [address] Tyrell Casillas Cholesterol [Mass/Vol] 132 mg/dL Normal <=200 [facility] Comment on above: Performed By: #### C MP, CK, LIPID #### [facility] [address] [address] [address] Tyrell Casillas Cholesterol in HDL [Mass/Vol] 39 mg/dL Critically low 40-60 [facility] Comment on above: Performed By: #### C MP, CK, LIPID #### [facility] [address] [address] [address] Tyrell Casillas Cholesterol in LDL [Mass/Vol] 72.8 mg/dL Normal [facility] Comment on above: Performed By: #### C MP, CK, LIPID #### [facility] [address] [address] [address] Tyrell Casillas Cholesterol.total/Cho lesterol in HDL [Mass ratio] 3.4 {ratio} Normal [facility] Comment on above: Performed By: #### C MP, CK, LIPID #### [facility] [address], [place] [address] Dr. Tyrell Casillas HDL NORMAL > or = 60 mg/dl - LO W CARDIOVASCULAR RISK <40 mg/dl - HIGH CARDIOVASCULAR RISK Normal [facility] Comment on above: Performed By: #### C MP, CK, LIPID #### [facility] [address] [address] [address] Tyrell Casillas LDL CALC NORMAL SEE BELOW Normal [facility] Comment on above: Result Comment: <100 mg/dl OPTIMAL 100 - 129 mg/dl NEAR OR ABOVE OPTIMAL 130 - 159 mg/dl BORDERLINE HIGH 160 - 189 mg/dl HIGH >190 mg/dl VERY HIGH Performed By: #### C MP, CK, LIPID #### [facility] [address] [address] [address] Tyrell Casillas Triglyceride [Mass/Vol] 101 mg/dL Normal <=150 [facility] Comment on above: Performed By: #### C MP, CK, LIPID #### [facility] [address] [address] [address] Tyrell Casillas VLDL CALC 20.2 mg/dL Normal [facility] Comment on above: Performed By: #### C MP, CK, LIPID #### [facility] [address] [place] [address] Dr. Tyrell Casillas PROF 14(COMP METB)on 022 Albumin [Mass/Vol] 4.4 g/dL Normal 3.4-5.0 [facility] Comment on above: Performed By: #### C MP, CK, LIPID #### [facility] [address] [address] [address] Tyrell Casillas Albumin/Globulin [Mass ratio] 1.3 {ratio} Normal [facility] Comment on above: Performed By: #### C MP, CK, LIPID #### [facility] [address] [address] [address] Tyrell Csaillas ALP [Catalytic activity/Vol] 55 U/L Normal 46-116 [facility] Comment on above: Performed By: #### C MP, CK, LIPID #### [facility] [address] [address] [address] Tyrell Casillas ALT [Catalytic activity/Vol] 48 U/L Normal 16-63 [facility] Comment on above: Performed By: #### C MP, CK, LIPID #### [facility] [address] [address] [address] Tyrell Casillas Anion gap [Moles/Vol] 12.1 mmol/L Normal [facility] Comment on above: Performed By: #### C MP, CK, LIPID #### [facility] [address] [address] [address] Tyrell Casillas AST [Catalytic activity/Vol] 35 U/L Normal 15-37 [facility] Comment on above: Performed By: #### C MP, CK, LIPID #### [facility] [address] [address] [address] Tyrell Casillas Bilirubin [Mass/Vol] 0.4 mg/dL Normal 0.2-1.0 [facility] Comment on above: Performed By: #### C MP, CK, LIPID #### [facility] [address] [place] [address] Dr. Tyrell Casillas Calcium [Mass/Vol] 9.0 mg/dL Normal 8.5-10.1 [facility] Comment on above: Performed By: #### C MP, CK, LIPID #### [facility] [address] [place] [address] Dr. Tyrell Casillas Chloride [Moles/Vol] 106 mmol/L Normal 98-107 [facility] Comment on above: Performed By: #### C MP, CK, LIPID #### [facility] [address] [address] [address] Tyrell Casillas CO2 [Moles/Vol] 25.0 mmol/L Normal 21.0-32.0 [facility] Comment on above: Performed By: #### C MP, CK, LIPID #### [facility] [address] [place] [address] Dr. Tyrell Casillas Creatinine [Mass/Vol] 0.85 mg/dL Normal 0.70-1.30 [facility] Comment on above: Performed By: #### C MP, CK, LIPID #### [facility] [address] [place] [address] Dr. Tyrell Casillas EGFR-AF SLOVENIAN >60 Normal >=60 [facility] Comment on above: Performed By: #### C MP, CK, LIPID #### [facility] [address] [place] [address] Dr. Tyrell Casillas EGFR-NON AF SLOVENIAN >60 Normal >=60 [facility] Comment on above: Performed By: #### C MP, CK, LIPID #### [facility] [address] [address] [address] Tyrell Casillas Globulin (S) [Mass/Vol] 3.4 g/dL Normal [facility] Comment on above: Performed By: #### C MP, CK, LIPID #### [facility] [address] [place] [address] Dr. Tyrell Casillas Glucose [Mass/Vol] 106 mg/dL Normal 74-106 [facility] Comment on above: Performed By: #### C MP, CK, LIPID #### [facility] [address] [place] [address] Dr. Tyrell Casillas Potassium [Moles/Vol] 4.1 mmol/L Normal 3.5-5.1 [facility] Comment on above: Performed By: #### C MP, CK, LIPID #### [facility] [address] [place] [address] Dr. Tyrell Casillas Protein [Mass/Vol] 7.8 g/dL Normal 6.4-8.2 [facility] Comment on above: Performed By: #### C MP, CK, LIPID #### [facility] [address] [place] [address] Dr. Tyrell Casillas Sodium [Moles/Vol] 139 mmol/L Normal 136-145 [facility] Comment on above: Performed By: #### C MP, CK, LIPID #### [facility] [address] [place] [address] Dr. Tyrell Casillas Urea nitrogen [Mass/Vol] 15.0 mg/dL Normal 7.0-18.0 [facility] Comment on above: Performed By: #### C MP, CK, LIPID #### [facility] [address] [place] [address] Dr. Tyrell Casillas Urea nitrogen/Creatinine [Mass ratio] 17.6 mg/mg Normal [facility] Comment on above: Performed By: #### C MP, CK, LIPID #### [facility] [address] [place] [address] Dr. Tyrell Casillas Abstracton 07-11-2022 Abstract [id number] Gretchen Delatorre 1950 M Date Provider Department Center 07/11/2022 KYRA SANTIZO Family History Family history unknown: Yes Normal [facility] Abstracton 07-10-2022 Abstract [id number] Gretchen Delatorre 1950 M Date Provider Department Center 07/10/2022 KYRA SANTIZO Family History Family history unknown: Yes Normal [facility] Coding Summaryon 05-31-2020 Coding Summary CODING DATE: 05/31/2020 [facility] STATUS: Home PAYOR: Medicare MC APC DESCRIPTION [...] Eugenie George Date Saved: 05/31/2020 01:32 pm [facility] Provider Orderson 05-23-2020 Provider Orders [id number] .00[facility]IFF [facility] Coding Summaryon 05-19-2020 Coding Summary CODING DATE: 05/19/2020 [facility] STATUS: Home PAYOR: Medicare MC APC DESCRIPTION 5115 Level 5 Musculoskeletal Procedures ADMIT DX: REASON FOR VISIT DX: M16.11 Unilateral primary osteoarthritis, right hip FINAL DX: PRINCIPAL: M16.11 Unilateral primary osteoarthritis, right hip SECONDARY: I10 Essential (primary) hypertension 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), and cerebral infarction without residual deficits PYMT PROC APC STAT DESCRIPTION DOCTOR NAME DATE 56061 6039 J1 Arthroplasty, acetabular Quirino, Bairon And and [...] Kee Revised Date Saved: 05/18/2020 12:22 pm [facility] Consent Formson 05-18-2020 Consent Forms [id number]#1 .00[facility] Medication Managementon 05-03 Medication Management [id number]#1 .00[facility] Outside Recordson 05-18-2020 Outside Records [id number]#1 .00[facility] Provider Orderson 05-18-2020 Provider Orders [id number]#1 .00[facility] Telemetry Stripson 0 Telemetry Strips [id number]#1 .00[facility] .Auto Diff 105-17-2020 Auto [place] % 7 % Normal 11-14 [facility] Comment on above: Performed By: #### 7 383578, 79107557, [id number] #### [facility] (DEFAULT) [address] [place] [address] 49739 Baso Abs# 0.0 x10 Normal 0.0-0.2 [facility] Comment on above: Performed By: #### 7 539950, 15728511, [id number] #### [facility] (DEFAULT) [address] [place] [address] 65156 Basophils/100 WBC (Bld) 0.2 % Normal 0.2-2.0 [facility] Comment on above: Performed By: #### 7 499061, 10404009, [id number] #### [facility] (DEFAULT) [address] [place] [address] 75240 Eos Abs# 0.1 x10 Normal 0.0-0.4 [facility] Comment on above: Performed By: #### 7 091250, 30295186, [id number] #### [facility] (DEFAULT) [address] [place] [address] 49664 Eosinophils/100 WBC (Bld) 1.5 % Normal 0.9-4.0 [facility] Comment on above: Performed By: #### 7 829757, 51142419, [id number] #### [facility] (DEFAULT) [address] [place] [address] 41317 Lymphocytes (Bld) [#/Vol] 1.3 x10 Normal 1.3-2.9 [facility] Comment on above: Performed By: #### 7 685310, 25950438, [id number] #### [facility] (DEFAULT) [address] [place] [address] 96753 Lymphocytes/100 WBC (Bld) 15 % Normal 14-48 [facility] Comment on above: Performed By: #### 7 432758, 27158474, [id number] #### [facility] (DEFAULT) [address] [place] [address] 73046 [place] Abs# 0.6 x10 Normal 0.0-0.8 [facility] Comment on above: Performed By: #### 7 971113, 66009940, [id number] #### [facility] (DEFAULT) [address] [place] [address] 75932 Neut Abs# 6.4 x10 Normal 1.5-9.2 [facility] Comment on above: Performed By: #### 7 935457, 80138427, [id number] #### [facility] (DEFAULT) [address] [place] [address] 45949 Neutrophils/100 WBC (Bld) 76 % Normal 44-88 [facility] Comment on above: Performed By: #### 7 779691, 66784017, [id number] #### [facility] (DEFAULT) [address] [place] [address] 72500 CBC w/ Auto Diffon 0 Erythrocyte distribution width (RBC) [Ratio] 11.9 % Normal 11.5-15.0 [facility] Comment on above: Performed By: #### 7 534410, 28124636, [id number] #### [facility] (DEFAULT) [address] [place] [address] Hematocrit (Bld) [Volume fraction] 26.9 % Low 34.8-51.9 [facility] Comment on above: Performed By: #### 7 778842, 98571439, [id number] #### [facility] (DEFAULT) [address] [place] [address] Hemoglobin (Bld) [Mass/Vol] 9.2 g/dL Low 11.8-17.7 [facility] Comment on above: Performed By: #### 7 263701, 56179164, [id number] #### [facility] (DEFAULT) [address] [place] [address] Man Diff? Auto Normal [facility] Comment on above: Performed By: #### 7 426928, 37762617, [id number] #### [facility] (DEFAULT) [address] [place] [address] 58159 MCH (RBC) [Entitic mass] 32 pg Normal 24-34 [facility] Comment on above: Performed By: #### 7 391349, 67163220, [id number] #### [facility] (DEFAULT) [address] [place] [address] 61959 MCHC (RBC) [Mass/Vol] 34 g/dL Normal 26-37 [facility] Comment on above: Performed By: #### 7 375002, 27916760, [id number] #### [facility] (DEFAULT) [address] [place] [address] 08927 MCV (RBC) [Entitic vol] 94 fL Normal 81-100 [facility] Comment on above: Performed By: #### 7 593569, 08679476, [id number] #### [facility] (DEFAULT) [address] [place] [address] 87459 Platelet mean volume (Bld) [Entitic vol] 9.4 fL Normal 6.3-10.2 [facility] Comment on above: Performed By: #### 7 727152, 80132723, [id number] #### [facility] (DEFAULT) [address] [place] [address] 64933 Platelets (Bld) [#/Vol] 203 x10 Normal 138-427 [facility] Comment on above: Performed By: #### 7 625060, 65728187, [id number] #### [facility] (DEFAULT) [address] [place] [address] 71928 RBC (Bld) [#/Vol] 2.87 x10 Low 3.70-5.30 [facility] Comment on above: Performed By: #### 7 308918, 51125393, [id number] #### [facility] (DEFAULT) [address] [place] [address] 17292 WBC (Bld) [#/Vol] 8.5 x10 Normal 3.5-10.5 [facility] Comment on above: Performed By: #### 7 931836, 31009529, [id number] #### [facility] (DEFAULT) [address] [place] [address] 32166 Education Noteon 05-17-2020 Education Note Education Materials [...] done to rule of a DVT. Normal [facility] Extra [facility] 05-17-2020 Tube Collected Yes [facility] Comment on above: Performed By: #### 7 300830, 46290889, [id number] #### [facility] (DEFAULT) [address] [place] [address] 07425 Inpatient Patient Summaryon 05-17-2020 Inpatient Patient Summary [address] [address] Patient Discharge Instructions Name: GRETCHEN DELATORRE Luis : 1950 Patient Address: [address] [place] [address] [address] [address] Primary Care Provider: Name: DAKSHA OREILLY After you are discharged if you find you have any questions, please, call [phone] ext [phone] to speak to a nurse. Discharge Diagnosis: Primary osteoarthritis of right hip Prescription Information: If you have been given a prescription for narcotics, seek immediate medical attention if you have any difficulty breathing or any sudden status changes such as confusion and sleepiness. If you or anyone you know is experiencing suicidal thoughts, mental health, alcohol and/or drug addiction problems; contact the [facility] 26/05 Crisis Hotline -Text 4HWGZ to 074196. If you received any narcotics, sedation, or [...] business decisions or sign any legal documents [facility] would like to thank you for allowing us to assist you with your healthcare needs. The following includes patient education materials and information regarding your injury/illness. GRETCHEN DELATORRE has been given the following list of follow-up instructions, prescriptions, and patient education materials: Follow-up Instructions With: Address: When: Bairon Win [address] [place] [address] [address] [place] [address] Business (2) 05/25/2020 2:00 PM With: Address: When: DAKSHA OREILLY [address] [place] [address] [place] [address] Business (1) Medications During the [...] for Disease Control and Prevention July 2014 [facility] Nutrition Noteon 05-17-2020 Nutrition Note Pt eating well avg 70-100% of meals and taking supplements as ordered. No new wts. Labs reviewed, post op anemia noted. No new rec'd at this time. Will continue to follow. Normal [facility] Pharmacy Noteon 05-17-2020 Pharmacy [...] [Verified on: 05/17/2020 08:32 EDT] Ethel Echavarria [facility] Progress Note - Nurseaster 07-1 Progress Note - Nurse Dr. Aguila visited [...] on: 05/17/2020 17:30 EDT] Patricia Bustillos RN [facility] Progress Note-Physicianon Progress Note-Physician DATE [...] doing satisfactorily and okay for discharge. 2. NOMS 360 will be coming to the home within the next 24-48 hours. 3. He has been given instructions to periodically lay in bed and elevate the leg intermittently throughout the day. 4. If he has any issues or problems that he may have, he will call Dr. Win's office. Bert Aguila DO JOB #: [id number] bk [Electronically Signed on: 05/18/2020 11:35 EDT] AUSTIN AGUILAY [Verified on: 05/18/2020 11:35 EDT] BERT AGUILA DO [Transcribed on: 05/17/2020 14:48 EDT] GDU Normal [facility] .Auto Diff 1on 05-16-2020 Auto [place] % 9 % Normal -12 [facility] Comment on above: Performed By: #### 7 252354, 17972293, [id number] #### [facility] (DEFAULT) [address] [place] [address] Baso Abs# 0.0 x10 Normal 0.0-0.2 [facility] Comment on above: Performed By: #### 7 066946, 61295438, [id number] #### [facility] (DEFAULT) [address] [place] [address] Basophils/100 WBC (Bld) 0.1 % Low 0.2-2.0 [facility] Comment on above: Performed By: #### 7 331959, 69650746, [id number] #### [facility] (DEFAULT) [address] [place] [address] 44227 Eos Abs# 0.0 x10 Normal 0.0-0.4 [facility] Comment on above: Performed By: #### 7 519316, 18672120, [id number] #### [facility] (DEFAULT) [address] [place] [address] Eosinophils/100 WBC (Bld) 0.2 % Low 0.9-4.0 [facility] Comment on above: Performed By: #### 7 355094, 60727257, [id number] #### [facility] (DEFAULT) [address] [place] [address] Lymphocytes (Bld) [#/Vol] 1.8 x10 Normal 1.3-2.9 [facility] Comment on above: Performed By: #### 7 575865, 39642185, [id number] #### [facility] (DEFAULT) [address] [place] [address] 50253 Lymphocytes/100 WBC (Bld) 14 % Normal 14-48 [facility] Comment on above: Performed By: #### 7 119091, 36636126, [id number] #### [facility] (DEFAULT) [address] [place] [address] [place] Abs# 1.1 x10 High 0.0-0.8 [facility] Comment on above: Performed By: #### 7 121552, 81428607, [id number] #### [facility] (DEFAULT) [address] [place] [address] Neut Abs# 9.9 x10 High 1.5-9.2 [facility] Comment on above: Performed By: #### 7 954888, 60369563, [id number] #### [facility] (DEFAULT) [address] [place] [address] Neutrophils/100 WBC (Bld) 77 % Normal 44-88 [facility] Comment on above: Performed By: #### 7 864669, 26780570, [id number] #### [facility] (DEFAULT) [address] [place] [address] CBC w/ Auto Diffon 0 Erythrocyte distribution width (RBC) [Ratio] 12.1 % Normal 11.5-15.0 [facility] Comment on above: Performed By: #### 7 549491, 94794080, [id number] #### [facility] (DEFAULT) [address] [place] [address] Hematocrit (Bld) [Volume fraction] 30.8 % Low 34.8-51.9 [facility] Comment on above: Performed By: #### 7 178241, 58125901, [id number] #### [facility] (DEFAULT) [address] [place] [address] Hemoglobin (Bld) [Mass/Vol] 10.5 g/dL Low 11.8-17.7 [facility] Comment on above: Performed By: #### 7 173682, 63945855, [id number] #### [facility] (DEFAULT) [address] [place] [address] 74069 Man Diff? Auto Normal [facility] Comment on above: Performed By: #### 7 147937, 13113912, [id number] #### [facility] (DEFAULT) [address] [place] [address] 22070 MCH (RBC) [Entitic mass] 32 pg Normal 24-34 [facility] Comment on above: Performed By: #### 7 028034, 87548537, [id number] #### [facility] (DEFAULT) [address] [place] [address] 33931 MCHC (RBC) [Mass/Vol] 34 g/dL Normal 26-37 [facility] Comment on above: Performed By: #### 7 519657, 42320293, [id number] #### [facility] (DEFAULT) [address] [place] [address] 51778 MCV (RBC) [Entitic vol] 93 fL Normal 81-100 [facility] Comment on above: Performed By: #### 7 866949, 31724107, [id number] #### [facility] (DEFAULT) [address] [place] [address] 89788 Platelet mean volume (Bld) [Entitic vol] 9.2 fL Normal 6.3-10.2 [facility] Comment on above: Performed By: #### 7 918348, 51913506, [id number] #### [facility] (DEFAULT) [address] [place] [address] 19790 Platelets (Bld) [#/Vol] 238 x10 Normal 138-427 [facility] Comment on above: Performed By: #### 7 446800, 48639947, [id number] #### [facility] (DEFAULT) [address] [place] [address] 99060 RBC (Bld) [#/Vol] 3.31 x10 Low 3.70-5.30 [facility] Comment on above: Performed By: #### 7 057586, 75955445, [id number] #### [facility] (DEFAULT) [address] [place] [address] WBC (Bld) [#/Vol] 12.9 x10 High 3.5-10.5 [facility] Comment on above: Performed By: #### 7 107461, 65469295, [id number] #### [facility] (DEFAULT) [address] [place] [address] Progress Note-Physicianon Progress Note-Physician DATE OF POSTOPERATIVE [...] PROGNOSIS: Good. Bert Aguila DO JOB #: [id number] bk [Electronically Signed on: 05/17/2020 11:24 EDT] BERT AGUILA DO [Verified on: 05/17/2020 11:24 EDT] BERT AGUILA DO [Transcribed on: 05/16/2020 13:06 EDT] COUNT INCLUDES THE [facility] Normal [facility] .Auto Diff 1on 05-15-2020 Auto [place] % 1 % Normal 1-12 [facility] Comment on above: Performed By: #### 7 881520, 75372086, [id number] #### [facility] (DEFAULT) [address] [place] [address] Baso Abs# 0.0 x10 Normal 0.0-0.2 [facility] Comment on above: Performed By: #### 7 730488, 31012091, [id number] #### [facility] (DEFAULT) [address] [place] [address] 94279 Basophils/100 WBC (Bld) 0.1 % Low 0.2-2.0 [facility] Comment on above: Performed By: #### 7 223506, 40543522, [id number] #### [facility] (DEFAULT) [address] [place] [address] 84040 Eos Abs# 0.0 x10 Normal 0.0-0.4 [facility] Comment on above: Performed By: #### 7 228578, 96227232, [id number] #### [facility] (DEFAULT) [address] [place] [address] 31452 Eosinophils/100 WBC (Bld) 0.1 % Low 0.9-4.0 [facility] Comment on above: Performed By: #### 7 054246, 61308569, [id number] #### [facility] (DEFAULT) [address] [place] [address] Lymphocytes (Bld) [#/Vol] 0.4 x10 Low 1.3-2.9 [facility] Comment on above: Performed By: #### 7 554453, 60672229, [id number] #### [facility] (DEFAULT) [address] [place] [address] Lymphocytes/100 WBC (Bld) 4 % Low 14-48 [facility] Comment on above: Performed By: #### 7 013897, 11512545, [id number] #### [facility] (DEFAULT) [address] [place] [address] [place] Abs# 0.2 x10 Normal 0.0-0.8 [facility] Comment on above: Performed By: #### 7 314850, 43699101, [id number] #### [facility] (DEFAULT) [address] [place] [address] Neut Abs# 10.0 x10 High 1.5-9.2 [facility] Comment on above: Performed By: #### 7 701722, 80836347, [id number] #### [facility] (DEFAULT) [address] [place] [address] Neutrophils/100 WBC (Bld) 94 % High 44-88 [facility] Comment on above: Performed By: #### 7 069905, 27314662, [id number] #### [facility] (DEFAULT) [address] [place] [address] Anesthesia Noteon 05-15-2020 Anesthesia Note Patient: LA [...] AAA (abdominal aortic aneurysm) / SNOMED CT 131004479 / Confirmed CAD (coronary artery disease) / SNOMED CT 77953855 / Confirmed Myocardial infarct / SNOMED CT 18690290 / Confirmed Resolved: CVA, old, cognitive deficits / SNOMED CT 6306961911 Histories Family History: Entire family history is negative. Procedure history: AAA - Abdominal aortic aneurysm (587078689) in 2012 at 62 Years. AAA - Abdominal aortic aneurysm (563016008) in 2005 at 55 Years. quaddruple cardiac byapss in 2005 at 55 Years. back surgery in 2004 at 54 Years. knee scope in 2004 at 54 Years. Comments: 04/27/2020 14:05 Abimbola Pickering RN right Hip arthroplasty (766477306) in 2004 at 53 Years. AAA - Abdominal aortic aneurysm (620002312) in 2003 at 52 Years. Social History Electronic Cigarette/Vaping Assessment Electronic Cigarette Use: Never. Alcohol Assessment Use: Current. Beer, Wine, 1-2 times per week Tobacco Assessment Former smoker, quit more than 30 days ago Tobacco Use:. Substance Abuse Assessment Substance use: Past. Marijuana Comment: 1979 s . Physical Examination VS/Measurements Vital Signs (last [...] ECG interpretation: SR, occ PVCs, NSTWA. Plan [employer]#( A) physical status classification: Class III. Anesthetic Preoperative Plan Anesthesia: General. . Anesthetic plan, risks, benefits, and alternatives discussed with the patient and/or family. Patient verbalized understanding. Informed consent was given. Consent was signed by the patient. [Electronically Signed on: 05/15/2020 08:26 EDT] Tom Casiano MD [Verified on: 05/15/2020 08:26 EDT] Tom Casiano MD [facility] CBC w/ Auto Diffon 0 Erythrocyte distribution width (RBC) [Ratio] 12.1 % Normal 11.5-15.0 [facility] Comment on above: Performed By: #### 7 949809, 20628475, [id number] #### [facility] (DEFAULT) [address] [place] [address] Hematocrit (Bld) [Volume fraction] 33.2 % Low 34.8-51.9 [facility] Comment on above: Performed By: #### 7 094524, 66659206, [id number] #### [facility] (DEFAULT) [address] [place] [address] Hemoglobin (Bld) [Mass/Vol] 11.5 g/dL Low 11.8-17.7 [facility] Comment on above: Performed By: #### 7 368260, 82995908, [id number] #### [facility] (DEFAULT) [address] [place] [address] Man Diff? Auto Normal [facility] Comment on above: Performed By: #### 7 418836, 35557159, [id number] #### [facility] (DEFAULT) [address] [place] [address] MCH (RBC) [Entitic mass] 32 pg Normal 24-34 [facility] Comment on above: Performed By: #### 7 967396, 02017835, [id number] #### [facility] (DEFAULT) [address] [place] [address] MCHC (RBC) [Mass/Vol] 35 g/dL Normal 26-37 [facility] Comment on above: Performed By: #### 7 354685, 61703740, [id number] #### [facility] (DEFAULT) [address] [place] [address] MCV (RBC) [Entitic vol] 92 fL Normal 81-100 [facility] Comment on above: Performed By: #### 7 165199, 58701349, [id number] #### [facility] (DEFAULT) [address] [place] [address] Platelet mean volume (Bld) [Entitic vol] 9.5 fL Normal 6.3-10.2 [facility] Comment on above: Performed By: #### 7 934644, 84317530, [id number] #### [facility] (DEFAULT) [address] [place] [address] 37992 Platelets (Bld) [#/Vol] 205 x10 Normal 138-427 [facility] Comment on above: Performed By: #### 7 753630, 37276410, [id number] #### [facility] [facility] (DEFAULT) [address] [place] [address] 59296 RBC (Bld) [#/Vol] 3.62 x10 Low 3.70-5.30 [facility] [place] Comment on above: Performed By: #### 7 [id number], [id number], [id number] #### [facility] (DEFAULT) [address] [place] [address] 09734 WBC (Bld) [#/Vol] 10.6 x10 High 3.5-10.5 [facility] [place] Comment on above: Performed By: #### 7 [id number], [id number], [id number] #### [facility] (DEFAULT) [address] [place] [address] 78992 History and Physicalon 05-15 History and Physical [id number] .[id number] [facility] MAGR Intraoperative Recordon 05-15-2020 MAGR Intraoperative Record MAGR Intra-Op Record Summary Primary Physician: Bairon Win DO Finalized Date/Time: 05/15/20 17:18:47 Pt. Name: GRETCHEN DELATORRE/Sex: 1950 MALE Med Rec #: [id number] Physician: Bairon Win DO Financial #: [id number] Pt. Type: O Room/Bed: [facility]/ Admit/Disch: 05/15/20 06:07:00 - Institution: Case Times [...] Role Performed Surgeon - Primary Anesthesiologist of Soil Conservation Technician Record Time In 05/15/20 09:01:00 05/15/20 09:01:00 05/15/20 09:01:00 Time Out 05/15/20 11:20:00 05/15/20 11:20:00 05/15/20 11:20:00 Procedure Arthroplasty Total Arthroplasty Total Arthroplasty Total Hip(Right) Hip(Right) Hip(Right) Last Modified By: Ethel Gibson RN, Stephanie RN Sauer, Stephanie RN 05/15/20 14:15:50 05/15/20 14:15:50 05/15/20 14:15:50 Entry 4 Entry 5 Entry 6 Case Attendee Megan GEOLOGY TEACHER, Mauricio Foreman Brittany E CST Regina GEOLOGY TEACHER Role Performed Scrub Personnel Graduate Student Graduate Student Time In 05/15/20 09:01:00 05/15/20 09:01:00 05/15/20 09:01:00 Time Out 05/15/20 11:20:00 05/15/20 11:20:00 05/15/20 11:20:00 Procedure Arthroplasty Total Arthroplasty Total Arthroplasty Total Hip(Right) Hip(Right) Hip(Right) Last Modified By: Ethel Gibson RN, Stephanie RN Sauer, Stephanie RN 05/15/20 14:15:50 05/15/20 14:15:50 05/15/20 14:15:50 General Comments: CHRISTELLE ROSSI REP Surgical Procedures MAGR Pre-Care Text: A.20 Verifies operative procedure, surgical site, and laterality Im.150 Develops individualized plan of care Entry 1 Procedure Arthroplasty Total Hip Primary Procedure Yes Primary Surgeon Bairon Win Right Pedro WHITE Surgeon Comment RIGHT TOTAL HIP Start 05/15/20 [...] By: Pedro Edgar DO Size 54MM 58MM Triage Rn DePuy DEPUY DEPUY Catalog # Lot Number [id number] Expiration Date 03/02/30 04/02/30 Serial Number REF [id number] REF [id number] REF [id number] Device Identifier Human Readable PAUL Machine Readable PAUL MR Class Implant Usage Data Site Hip R Hip R Hip R Quantity 1 1 1 Reason for Explant Reason Not Retained 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 Sterility External Indicator Result Internal Indicator Results Outcome Met (O.30) Yes Yes Yes Last Modified By: Ethel Gibson RN, Stephanie RN Sauer, Stephanie RN 05/15/20 15:23:55 05/15/20 14:52:24 05/15/20 15:23:55 Entry 4 Entry 5 Entry 6 Procedure Arthroplasty Total Arthroplasty Total Arthroplasty Total Hip(Right) Hip(Right) Hip(Right) Implant Action Implant Implant Implant Description DEPUY ACETABULAR LINER DEPUY CANCELLOUS BONE DEPUY CEMENTLESS SCREW FEMORAL STEM Implant Information Implant/Explant 05/15/20 10:25:00 05/15/20 10:25:00 05/15/20 10:25:00 Date/Time Implanted/Explanted Bairon Win James Huddleston, James By: Pedro Edgar DO Size 38 ID 56OD 6.5MM X 25MM KA SIZE 11 Triage Rn DEPUY DEPUY DEPUY Catalog # Lot Number [id number] Expiration Date 12/31/24 10/02/29 07/03/24 Serial Number REF [id number] REF [id number] REF [id number] Device Identifier Human Readable PAUL Machine Readable PAUL MR Class Implant Usage Data Site Hip R Hip R Hip R Quantity 1 2 1 Reason for Explant Reason Not Retained 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 Sterility External Indicator Result Internal Indicator Results Outcome Met (O.30) Yes Yes Yes Last Modified By: Ethel Gibson RN, Stephanie RN Sauer, Stephanie RN 05/15/20 15:23:55 05/15/20 15:23:55 05/15/20 15:23:55 Entry 7 Procedure Arthroplasty Total Hip(Right) Implant Action Implant Description DEPUY M SPEC METAL FEMORAL HEAD Implant Information Implant/Explant 05/15/20 10:25:00 Date/Time Implanted/Explanted Bairon Win By: Pedro WHITE Size 036MM / TAPER Triage Rn DEPUY Catalog # Lot Number [id number] Expiration Date 07/03/24 Serial Number REF 1365-51-000 Device Identifier Human Readable PAUL Machine Readable PAUL MR Class Implant Usage Data Site Hip R Quantity 1 Reason for Explant Reason Not Retained Explant Disposition 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 Name: GRETCHEN DELATORRE/Sex: 1950 MALE Med Rec #: [id number] Physician: Bairon Win DO Financial #: [id number] Pt. Type: D Room/Bed: [facility] Admit/Disch: 05/15/20 06:07:00 - Institution: PACU Case Times MAGR Entry 1 In PACU I 05/15/20 11:15:00 Discharge from PACU 05/15/20 12:05:00 I Last Modified By: Francesca Pastrana RN 05/15/20 12:19:29 Finalized By: Francesca Pastrana RN Document Signatures Signed By: Francesca Pastrana RN 05/15/20 [facility] 05-15-2020 MAGR Preoperative Record MAGR Pre-Op Record Summary Primary Physician: Bairon Win DO Finalized Date/Time: 05/15/20 13:36:44 Pt. Name: GRETCHEN DELATORRE /Sex: 1950 MALE Med Rec #: [id number] Physician: Bairon Win DO Financial #: [id number] Pt. Type: O Room/Bed: 221/1 Admit/Disch: 05/15/20 [...] Signed By: Francesca Pastrana RN 05/15/20 13:36 [facility] Nutrition Noteon 05-15-2020 Nutrition Note Pt admitted for planned Rt total hip surgery; placed on an advanced as tolerated to Regular diet. 6kg wt change noted from 04/27 pre-admit weight. Pt denies any wt changes. April labs reviewed and unremarkable. Full nutrition assessment completed d/t Pt at high risk r/t age greater than 65y and surgery, however, no acute concerns at this time. Will adjust diet to cardiac secondary to hx of CAD/CABG/CVA and will monitor tolerance, wts, intake, and changes in labs. Post op supplements, vitamins/ minerals already in place. To follow. [facility] Operative Report - Surgeon/P venkatesh 05-15-2020 Operative [...] impacted a 56 mm gription cup ( Depuy) this was secured with 2 6.5 mm [...] both with saline and then also diluted [place] dine mixture. The fascial planes were injected [...] on: 05/15/2020 12:17 EDT] Bairon Win DO [facility] Pharmacy Noteon 05-15-2020 Pharmacy Note [...] etc) [Electronically Signed on: 05/15/2020 15:26 EDT] Reyna, Tahira [Verified on: 05/15/2020 15:26 EDT] Tahira Reyna [facility] XR Hip Complete Righton 05-03 [...] Javier 05/15/20 11:59 a Technologist: Poncho ARCOS [facility] ABORhon 05-14-2020 ABO and Rh group Nom (d) Hx Check: Not Found Anti-A: 4+ Anti-B: 0 Anti-D: 4+ DCon: NT A1: 0 B: 4+ ABORh Interp: A POS [facility] Comment on above: Performed By: #### 1 [id number] #### [facility] (DEFAULT) [address] [place] [address] ABORh Retypeon 05-14-2020 ABO and Rh group Nom (d) Ordered by Discern. Anti-A: 4+ Anti-B: 0 Anti-D: 4+ DCon: NT A1: 0 B: 4+ ABORh Retype: A [facility] Comment on above: Performed By: #### 1 [id number] #### [facility] (DEFAULT) [address] [place] [address] 38707 ABSC Gelon 05-14-2020 ABSC Gel Negative [facility] Comment on above: Performed By: #### 1 [id number] #### [facility] (DEFAULT) [address] [place] [address] Blood Bank IDon 05-14-2020 Blood Bank ID BBID: [id number] [facility] Comment on above: Performed By: #### 1 [id number] #### [facility] (DEFAULT) [address] [place] [address] H&Hon 05-14-2020 Hematocrit (Bld) [Volume fraction] 38.3 % Normal 34.8-51.9 [facility] Comment on above: Performed By: #### 1 [id number] #### [facility] (DEFAULT) [address] [place] [address] Hemoglobin (Bld) [Mass/Vol] 13.3 g/dL Normal 11.8-17.7 [facility] Comment on above: Performed By: #### 1 [id number] #### [facility] (DEFAULT) [address] [place] [address] SARS-CoV-2 (COVID-19) PCRon 05-14-2020 COVID-19 PCR Not Detected Normal Not Detected [facility] Comment on above: Performed By: #### 1 [id number] #### [facility] (DEFAULT) [address] [place] [address] Progress Note - Nurseon 05-03 Progress Note - Nurse Spoke with pt regarding arrival time of 0600 and NPO after midnight. Pt instructed he will need to be tested for COVID on Friday when he comes in for type and screen. Verbalized understanding. [Electronically Signed on: 05/12/2020 09:38 EDT] Sara Alvarez RN [Verified on: 05/12/2020 09:38 EDT] Sara Alvarez RN Normal [facility] Coding Summaryon 05-10-2020 Coding Summary CODING DATE: 05/10/2020 [facility] STATUS: Home PAYOR: Medicare MC APC DESCRIPTION [...] Eugenie George Date Saved: 05/10/2020 01:27 pm [facility] Billing Authorizationson Billing Authorizations [id number] Medication Management [id number] Coding Summaryon 05-08-2020 Coding Summary CODING DATE: 05/08/2020 [facility] STATUS: Home PAYOR: Medicare MC ADMIT DX: [...] Eugenie George Date Saved: 05/08/2020 01:38 pm [facility] Progress Note - Nurseon 04-04 Progress Note - Nurse PAT review done sara villarreal Cardiac workup, no orders received. [Electronically Signed on: 05/02/2020 07:05 EDT] Francesca Pastrana RN [Verified on: 05/02/2020 07:05 EDT] Francesca Pastrana RN [facility] Progress Note - Nurse Dr. Burgos review s PAT information and testing results. Request copy of the stress test and last cardiology office notes. Call made to [facility], spoke with Annemarie at [facility]. Requested above information. Release of information faxed for records request. [Electronically Signed on: 05/01/2020 09:47 EDT] Maritza Teresa RN [Verified on: 05/01/2020 09:47 EDT] Maritza Teresa RN Normal [facility] C MRSA Screenon 04-28-2020 C MRSA Screen Negative [facility] Comment on above: Performed By: #### 1 [id number] #### [facility] (DEFAULT) [address] [place] [address] Provider Orderson 04-28-2020 Provider Orders [id number] .00OTGTIFF [facility] .Auto Diff 1on 04-27-2020 Auto [place] % 9 % Normal 1-12 [facility] Comment on above: Performed By: #### 7 [id number], [id number], [id number] #### [facility] (DEFAULT) [address] [place] [address] Baso Abs# 0.0 x10 Normal 0.0-0.2 [facility] Comment on above: Performed By: #### 7 [id number], [id number], [id number] #### [facility] (DEFAULT) [address] [place] [address] Basophils/100 WBC (Bld) 0.4 % Normal 0.2-2.0 [facility] Comment on above: Performed By: #### 7 [id number], [id number], [id number] #### [facility] (DEFAULT) [address] [place] [address] Eos Abs# 0.1 x10 Normal 0.0-0.4 [facility] Comment on above: Performed By: #### 7 [id number], [id number], [id number] #### [facility] (DEFAULT) [address] [place] [address] 49811 Eosinophils/100 WBC (Bld) 1.7 % Normal 0.9-4.0 [facility] Comment on above: Performed By: #### 7 [id number], [id number], [id number] #### [facility] (DEFAULT) [address] [place] [address] 35469 Lymphocytes (Bld) [#/Vol] 1.6 x10 Normal 1.3-2.9 [facility] Comment on above: Performed By: #### 7 544445, [id number], [id number] #### [facility] (DEFAULT) [address] [place] [address] 35565 Lymphocytes/100 WBC (Bld) 20 % Normal 14-48 [facility] Comment on above: Performed By: #### 7 [id number], [id number], [id number] #### [facility] (DEFAULT) [address] [place] [address] 68245 [place] Abs# 0.7 x10 Normal 0.0-0.8 [facility] Comment on above: Performed By: #### 7 [id number], [id number], [id number] #### [facility] (DEFAULT) [address] [place] [address] 15258 Neut Abs# 5.2 x10 Normal 1.5-9.2 [facility] Comment on above: Performed By: #### 7 [id number], [id number], [id number] #### [facility] (DEFAULT) [address] [place] [address] 06029 Neutrophils/100 WBC (Bld) 69 % Normal 44-88 [facility] Comment on above: Performed By: #### 7 [id number], [id number], [id number] #### [facility] (DEFAULT) [address] [place] [address] 09036 BMP Standardon 04-27-2020 eGFR Non AA >60 [facility] Comment on above: Performed By: #### 7 898914, [id number], [id number] #### [facility] (DEFAULT) [address] [place] [address] 29197 eGFR AA >60 [facility] Comment on above: Result Comment: [employer] ramin Kidney disease could be indicated at eGFRs of less than 60 ml/min/1.73m2. Kidney Failure is indicated at less than 15 ml/min/1.73m2 Performed By: #### 7 [id number], [id number], [id number] #### [facility] (DEFAULT) [address] [place] [address] 64565 Anion gap [Moles/Vol] 12.0 mmol/L Normal 5.0-19.0 [facility] Comment on above: Performed By: #### 7 [id number], [id number], [id number] #### [facility] (DEFAULT) [address] [place] [address] 56101 Calcium [Mass/Vol] 9.7 mg/dL Normal 8.9-10.3 [facility] Comment on above: Performed By: #### 7 914980, [id number], [id number] #### [facility] (DEFAULT) [address] [place] [address] 35244 Chloride [Moles/Vol] 106 mmol/L Normal 101-111 [facility] Comment on above: Performed By: #### 7 123933, [id number], [id number] #### [facility] (DEFAULT) [address] [place] [address] 11589 CO2 [Moles/Vol] 23 mmol/L Normal 21-32 [facility] Comment on above: Performed By: #### 7 963267, [id number], [id number] #### [facility] (DEFAULT) [address] [place] [address] 62003 Creatinine [Mass/Vol] 0.72 mg/dL Low 0.90-1.30 [facility] Comment on above: Performed By: #### 7 989813, [id number], [id number] #### [facility] (DEFAULT) [address] [place] [address] 77930 Glucose [Mass/Vol] 85.0 mg/dL Normal 74.0-118.0 [facility] Comment on above: Performed By: #### 7 004421, [id number], [id number] #### [facility] (DEFAULT) [address] [place] [address] 96061 Osmolality [Osmolality] 274 mOsm/L [facility] Comment on above: Performed By: #### 7 493131, [id number], [id number] #### [facility] (DEFAULT) [address] [place] [address] 47305 Potassium [Moles/Vol] 4.4 mmol/L Normal 3.6-5.1 [facility] Comment on above: Performed By: #### 7 280127, [id number], [id number] #### [facility] (DEFAULT) [address] [place] [address] Sodium [Moles/Vol] 137.0 mmol/L Normal 136.0-144.0 [facility] Comment on above: Performed By: #### 7 712595, [id number], [id number] #### [facility] (DEFAULT) [address] [place] [address] Urea nitrogen [Mass/Vol] 16 mg/dL Normal 8-26 [facility] Comment on above: Performed By: #### 7 716328, [id number], [id number] #### [facility] (DEFAULT) [address] [place] [address] Urea nitrogen/Creatinine [Mass ratio] 22.0 mg/mg High 4.6-16.2 [facility] Comment on above: Performed By: #### 7 131551, [id number], [id number] #### [facility] (DEFAULT) [address] [place] [address] 04748 CBC w/ Auto Diffon 0 Erythrocyte distribution width (RBC) [Ratio] 12.2 % Normal 11.5-15.0 [facility] Comment on above: Performed By: #### 7 373918, [id number], [id number] #### [facility] (DEFAULT) [address] [place] [address] Hematocrit (Bld) [Volume fraction] 38.9 % Normal 34.8-51.9 [facility] Comment on above: Performed By: #### 7 219153, [id number], [id number] #### [facility] (DEFAULT) [address] [place] [address] 33836 Hemoglobin (Bld) [Mass/Vol] 13.5 g/dL Normal 11.8-17.7 [facility] Comment on above: Performed By: #### 7 509155, 40802574, [id number] #### [facility] (DEFAULT) [address] [place] [address] 49068 Man Diff? Auto Normal [facility] Comment on above: Performed By: #### 7 163641, 60214820, [id number] #### [facility] (DEFAULT) [address] [place] [address] 28850 MCH (RBC) [Entitic mass] 32 pg Normal 24-34 [facility] Comment on above: Performed By: #### 7 097237, 25336927, [id number] #### [facility] (DEFAULT) [address] [place] [address] 77843 MCHC (RBC) [Mass/Vol] 35 g/dL Normal 26-37 [facility] Comment on above: Performed By: #### 7 552829, 30908198, [id number] #### [facility] (DEFAULT) [address] [place] [address] 43250 MCV (RBC) [Entitic vol] 91 fL Normal 81-100 [facility] Comment on above: Performed By: #### 7 889623, 99561125, [id number] #### [facility] (DEFAULT) [address] [place] [address] 03768 Platelet mean volume (Bld) [Entitic vol] 9.3 fL Normal 6.3-10.2 [facility] Comment on above: Performed By: #### 7 592018, [id number], [id number] #### [facility] (DEFAULT) [address] [place] [address] 05239 Platelets (Bld) [#/Vol] 220 x10 Normal 138-427 [facility] Comment on above: Performed By: #### 7 182725, [id number], [id number] #### [facility] (DEFAULT) [address] [place] [address] 04629 RBC (Bld) [#/Vol] 4.26 x10 Normal 3.70-5.30 [facility] Comment on above: Performed By: #### 7 771420, [id number], [id number] #### [facility] (DEFAULT) [address] [place] [address] 74757 WBC (Bld) [#/Vol] 7.6 x10 Normal 3.5-10.5 [facility] Comment on above: Performed By: #### 7 270387, [id number], [id number] #### [facility] (DEFAULT) [address] [place] [address] 16692 Provider Orderson 04-27-2020 Provider Orders [id number] .[id number] [facility] UA w Culture if Ind Standard on 04-27-2020 Breakpoint UA [facility] Comment on above: Performed By: #### 1 [id number] #### [facility] (DEFAULT) [address] [place] [address] 90017 Color (U) Yellow [facility] Comment on above: Performed By: #### 1 [id number] #### [facility] (DEFAULT) [address] [place] [address] 45942 Culture? No [facility] Comment on above: Performed By: #### 1 [id number] #### [facility] (DEFAULT) [address] [place] [address] 96746 Glucose (U) [Mass/Vol] Negative [facility] Comment on above: Performed By: #### 1 [id number] #### [facility] (DEFAULT) [address] [place] [address] 58987 Ketones Ql (U) Negative [facility] Comment on above: Performed By: #### 1 [id number] #### [facility] (DEFAULT) [address] [place] [address] 96475 Micro? Not Indicated Normal [facility] Comment on above: Performed By: #### 1 [id number] #### [facility] (DEFAULT) [address] [place] [address] 09053 UA Bilirubin Negative Normal [facility] Comment on above: Performed By: #### 1 [id number] #### [facility] (DEFAULT) [address] [place] [address] 57430 UA Blood Negative Normal NEGATIVE [facility] Comment on above: Performed By: #### 1 [id number] #### [facility] (DEFAULT) [address] [place] [address] 31486 UA Clarity CLEAR Normal CLEAR [facility] Comment on above: Performed By: #### 1 [id number] #### [facility] (DEFAULT) [address] [place] [address] 93089 UA Leuk Est Negative Normal NEGATIVE [facility] Comment on above: Performed By: #### 1 [id number] #### [facility] (DEFAULT) [address] [place] [address] 26130 UA Nitrite Negative Normal NEGATIVE [facility] Comment on above: Performed By: #### 1 [id number] #### [facility] (DEFAULT) [address] [place] [address] 12248 UA pH 6.5 Normal 5-8 [facility] Comment on above: Performed By: #### 1 [id number] #### [facility] (DEFAULT) [address] [place] [address] 50198 UA Protein Negative Normal NEGATIVE [facility] Comment on above: Performed By: #### 1 [id number] #### [facility] (DEFAULT) [address] [place] [address] 34702 UA Spec Grav <=1.005 Normal 1.001-1.035 [facility] Comment on above: Performed By: #### 1 [id number] #### [facility] (DEFAULT) [address] [place] [address] 40629 UA Urobilinogen 0.2 mg/dL Normal 0.2-1.0 [facility] Comment on above: Performed By: #### 1 [id number] #### [facility] (DEFAULT) [address] [place] [address] 97682 Urine Source Clean Catch Normal [facility] Comment on above: Performed By: #### 1 [id number] #### [facility] (DEFAULT) [address] [place] [address] 16137 Vital Signs Date Time Vital Sign Value Performing Clinician Don carrera 02-18-2024 13:41-0400 Blood Pressure Location Haroon NILL [facility] Aime 02-18-2024 13:41-0400 Diastolic blood pressure 86 mm[Hg] Haroon NILL [facility]ime 02-18-2024 13:41-0400 Heart rate 76 /min Haroon NILL [facility]ime 02-18-2024 13:41-0400 Respiratory rate 16 /min Haroon NILL [facility] Aime 02-18-2024 13:41-0400 Systolic blood pressure 126 mm[Hg] Haroon NILL General Surgery Aime Encounters Encounter Date Encounter Type Care Provider Facility Start: 03-02-2024 End: 03-03-2024 ambulatory [facility] Start: 03-02-2024 End: 03-02-2024 Patient encounter procedure Haroon R NILL [facility] [place] Start: 03-02-2024 End: 03-02-2024 ambulatory Haroon R Nill Facility:[facility] Start: 02-18-2024 End: 02-19-2024 [facility]ulatory [facility] Start: 02-18-2024 End: 02-18-2024 Patient encounter procedure Haroon R NILL [facility] Start: 03-19-2023 End: 03-19-[address] DAKSHA OREILLY . Facility: Start: 03-18-2023 End: 03-19-[address] DAKSHA OREILLY . Facility:[facility] Start: 03-18-2023 End: 03-19-2023 ambulatory AMBER MIRTA Facility:[facility] Start: 08-19-2022 End: 08-19-2022 ambulatory BRYCE HUERTA [facility] Start: 08-16-2022 End: 08-17-[address] BRYCE HUERTA Facility:[facility] Start: 06-29-[address] BRYCE HUERTA Fac ility:[facility] Procedures Date Procedure Procedure Detail Performing Clinician Start: 03-18-2023 PSA screening AMBER ARGUELLES Comment on above: Performed By: #### C MP, CK, LIPID #### [facility] [address] [place] [address] Dr. Tyrell Casillas Start: 11-03-2019 Repair of [...] Immunization Date Immunization Notes Care Provider Fa [facility] 10-01-2023 influenza virus vaccine, unspecified formulation Haroon NILL [facility] [place] 02-27-2021 SARS-CoV-2 (COVID-19 ) mRNA BNT-162b2 vax Haroon NILL [facility] [place] 02-06-2021 SARS-CoV-2 (COVID-19 ) mRNA BNT-162b2 chris DON [facility] Payers Date Payer Category Payer Medicare [id number] 1957 Self-pay 1950 Unknown [id number] 2.16.84 [id number] 1950 Unknown [id number] 2.16.84 [id number] 1950 Unknown [id number] 2.16.84 [id number] 1950 Unknown [id number] 2.16.84 [id number] 1950 Unknown [id number] 2.16.84 [id number] 1950 Unknown [id number] 2.16.8 [id number] 1950 Unknown [id number] 2.16.8 [id number] Unknown [id number] 2.16.8 [id number] Social History Date Type Detail Facility Start: 02-18-2024 Tobacco smoking status Never s moked tobacco (finding) [facility] Tobacco smoking status Never [facility] [place] Sex Assigned At Male [facility] Functional Status Date Assessment Result Facility 02-18-2024 Functional Status N/A [facility] Clinical Note 02-18-2024 Note Date & Type [...] Illness 73 yo male with h/o CAD, [place], htn, hyperlipidemia, CVA, degenerative disc disease, lumbar, [...] SARS-CoV-2 (COVID-19) mRNA BNT-162b2 vax 02/06/2021 Recorded [facility] Comment on above: Result Comment: Elec tronically [...] Visual field defect Coronary artery disease involving [place] coronary artery of [place] heart without angina pectoris History of coronary [...] PMH- CAD s/p CABG, HTN, HPL, Cardiomyopathy, [place] in 1996 PSH- CABG x4 2005, Rt [...] T waves are (more content not included)... [facility] Evaluation + Plan note Note Date & Type Note Facility Evaluation + Plan note Future Appointments Appointment Date:03/02/2024 03:00:00 PM Scheduled Provider:Haroon DON MD Location:[facility] Appointment Type: Procedure 30 [facility] [place] Hospital course Narrative Note Date & Type Note Facility Hospital course Narrative No data available for this section [facility] [place] [facility] Discharge instructions Note Date & Type Note Facility Hospital Discharge instructions No data available for this section [facility] [place] Progress note Note Date & Type Note Facility Progress note No data available for this section [facility] [place] Summary Purpose Family History No Family History Records FoundNo Family History Records FoundNo Family History Records Found No data available for this section No data available for this section No Family History Records FoundNo Family History Records Found Advance Directives No Advanced Directives Records FoundNo Advanced Directives Records FoundNo Advanced Directives Records FoundNo Advanced Directives Records FoundNo Advanced Directives Records Found Hospital Course Note [facility] 2SOUT Clinical Discharge Summary PERSON INFORMATION Name GRETCHEN DELATORRE Age 69 Years 1950 Sex MALE Language Malawian PCP DAKSHA OREILLY Marital Status Med Service Observation Acct# Arrival 05/15/2020 06:07:00 Visit Reason RIGHT TOTAL HIP Acuity LOS Address: [address] [place] [address] [address] [facility] [address] Comment: PROVIDER INFORMATION VITALS INFORMATION Vital Sign [...] section and content) DATE CREATED AUTHOR 07/26/2020 [facility] DATE CREATED AUTHOR AUTHOR'S ORGANIZ ATION 10/07/2022 [facility] DATE CREATED AUTHOR AUTHOR'S ORGANIZ ATION 03/20/2023 [facility] DATE CREATED AUTHOR AUTHOR'S ORGANIZ ATION 03/05/2024 [facility] DATE CREATED AUTHOR AUTHOR'S ORGANIZ ATION 03/06/2024 [facility] Patient Care team informatio n (unrecognized section and content) Personnel Name: Daksha Oreilly MD Address: Address: [address] [place] [address] Personnel Name: Daksha Oreilly MD Address: Address: [address] [place] [address] FOR RECORDS PERTAINING TO PATIENTS WHO ARE [...] BE BASED ON THE PRIMARY CLINICAL RECORDS. [facility] [employer] [facility]. provides no warranty or guarantee of the accuracy or completeness of information in this document.
[2024-10-15 11:12] LABS: Alanine Aminotransferase 48 U/L (16-63); Albumin Globulin Ratio 0.6; Albumin Level 3.5 g/dL (3.4-5.0); Alkaline Phosphatase 71 U/L (46-116); Aspartate Amino Transferase 34 U/L (15-37); Bilirubin Direct 0.1 mg/dL (0.0-0.2); Bilirubin Total 0.4 mg/dL (0.2-1.0); Cholesterol 111 mg/dL (<=200); Globulin 6.2 g/dL; HDL Cholesterol 29 mg/dL (40-60); Total Protein 9.7 g/dL (6.4-8.2); Triglycerides 72 mg/dL (<=150); VLDL CHOLESTEROL 14.4 mg/dL
[2024-10-15 11:14] LABS: Creatine Kinase 498 U/L (39-308)
[2024-10-15 12:43] LABS: Chol HDL Ratio 3.8
== END 2024-10-15 10:36 | disposition home or self-care (01) ==
LOC: LAB 10:38
PROVIDERS: PCP Family Medicine; Visit Provider Internal Medicine Interventional Cardiology
DX: E78.2 Mixed hyperlipidemia (principal)
CPT/HCPCS: 36415; 80061; 80076; 82550

== ENCOUNTER 2024-10-29 14:27 | Outpatient (OUT) | payer MEDICARE, SELFPAY ==
--- OUTSIDE RECORDS SUMMARY | 2024-10-29 14:31 | XMS_ITS | CCD ---
Author Organization [facility] Care Team Providers [facility] Pricing Consultant Name Role Phone AMBER KIRBY Admitting Unavailable AMBER KIRBY Consulting Unavailable AMBER [...] Primary Care Physician Haroon Don Attending Unavailable NillHaroon R Admitting Unavailable NILLHaroon R Attending Unavailable Daksha Oreilly Referring Unavailable NILLHaroon R Attending Unavailable MOUKARBELBRYCE Attending Unavailable Allergies Allergy Classification Reported Allergen(s) Allergy Type Date of Onset Reaction(s) Facility (1 source) black walnut pollen extract Drug Allergy [facility] Repository (1 source) Hmg-Coa Reductase Inhibitors (Statins); Translations: [statins] Propensity to adverse reactions (disorder) [facility] Repository (1 source) No Known Medication Allergies; Translations: [No Known Medication Allergies] Propensity to adverse reactions (disorder) [facility] Repository Medications Current Medications Medication [...] Chronic Coronary atherosclerosis and other heart disease (7 sources) Atherosclerotic heart disease of [place] coronary artery without angina pectoris; Translations: [Coronary arteriosclerosis] Onset: 08-19-2022 06-19-2021 Chronic Coronary atherosclerosis and other heart disease (2 sources) Presence of aortocoronary bypass graft; Translations: [Presence of aortocoronary bypass graft] Onset: 08-19-2022 Episodic Diabetes mellitus without complication (4 sources) Other abnormal glucose; Translations: [OTHER ABNORMAL GLUCOSE] Onset: 03-18-2023 Episodic Disorders of lipid metabolism (9 sources) Hyperlipidemia, unspecified; Translations: [Hyperlipidemia] Onset: 07-10-2022 Chronic Essential hypertension (5 sources) Essential (primary) hypertension; Translations: [Hypertensive disorder] Onset: 03-19-2023 06-19-2021 Chronic Malaise and fatigue (1 source) Other fatigue; Translations: [OTHER FATIGUE] Onset: 03-19-2023 Episodic Osteoarthritis (2 sources) Osteoarthritis 06-19-2021 Chronic Osteoporosis (2 sources) Osteoporosis 06-19-2021 Chronic Other gastrointestinal disorders (2 sources) Occult blood in stools 06-21-2021 Episodic Other liver diseases (2 sources) Abnormal levels of other serum enzymes; Translations: [Abnormal levels of other serum enzymes] Onset: 10-18-2024 Episodic Other nutritional; endocrine; and metabolic disorders [...] Test Name Value Interpretation Reference Range Facility Office Visiton 10-18-2024 Follow-up visit [id number] Gretchen Delatorre 1950 M Date Provider Department Center 10/18/2024 [facility] Family History Family history unknown: Yes Level of Service:90334 [place] OFFICE/OUTPATIENT ESTABLISHED LOW MDM 20 MIN Normal [facility] Pathology Noteon 03-05-2024 Pathology Note [id number] .00TIFF Normal [facility] Ambulatory Visit Summaryon 0 03-02-2024 Ambulatory Visit Summary NANDINI, GRETCHEN Smith :1950 Visit Date:03/02/2024 Ambulatory Visit Instructions Your [...] for choosing us for your care. Gui [facility] General Surgery Office/Clini c Noteon [...] mRNA BNT-162b2 vax 02/06/2021 Recorded [address] [facility] Comment on above: Result Comment: Elec tronically Signed By: ARIAN JAIME, Haroon Newberrybr\Date and Time Signed: 03/02/24 15:16 EDT Gold 03-02-2024 L Specimen: [id number] Received: 03/03/24 Status: MICHELLE Simmonssusan Num: [id number] Spec Type: Surgical Subm Dr: Haroon Don MD FACS Tissues: A Skin-Other than Cyst, tag, debridement or plastic repair (RT CHEST WALL) Procedures: HE/4, Gross/Micro L4 Age/ Patient Sex Location Account Attending Physician Gretchen Delatorre 73/M LABELL [id number] Haroon Don MD FACS SPEC NUM: [id number] RECD: 03/03/24 STATUS: MICHELLE SANTANA NUM: [id number] PIYUSH: 03/02/24- SUBM DR: Haroon Don MD FACS ENTERED: 03/03/[address] [facility] [address]: Ava Salomon SPEC TYPE: Surgical DEPT: AIDEN WALLIS ORDERED: HE/, Gross/Micro L4 ORDERED: , Gross/Micro L4 Pathological Diagnosis Skin lesion, right [...] skin tag over several years CPT Codes 41368 -------- -------- Specimen: [id number] Received: 03/03/24 Status: MICHELLE Santana Num: [id number] Spec Type: Surgical Subm Dr: Haroon Don MD FACS Tissues: A Skin-Other than Cyst, tag, debridement or plastic repair (RT CHEST WALL) Procedures: /Lelo, Gross/Micro L4 -------- Patient: Gretchen Delatorre [id number] (Continued) -------- Signed (signature on file) Misael Erazo MD 03/04/241432 Normal [facility] Ambulatory Visit Summaryon 0 [...] JAIME, Haroon Ellison Where: General Surgery [facility]rian[facility] Facesheeton 02-18-2024 Facesheet [id number] 1.00TIFF Normal [facility] Physician Referralon 024 Physician Referral [id number] .00TIFF Normal [facility] Physician Referralon 024 Physician Referral [id number] .00TIFF Normal [facility] OCC BLD IMMUNO SCREENon 03-03 OCCULT BLOOD Positive Abnormal NEGATIVE [facility] Comment on above: Performed By: #### C MP, CK, LIPID #### [facility] [address] [address] [address] Tyrell Casillas CBC AUTO DIFFon 03-18-2023 BASO # 0.0 103/ul Normal 0.0-0.1 [facility] Comment on above: Performed By: #### C BC #### [facility] [address] [place] [address] Dr. Tyrell Casillas Basophils/100 WBC (Bld) 0.5 % Normal 0.2-2.0 [facility] Comment on above: Performed By: #### C BC #### [facility] [address] [place] [address] Dr. Tyrell Casillas EO # 0.2 103/ul Normal 0.0-0.7 [facility] Comment on above: Performed By: #### C BC #### [facility] [address] [place] [address] Dr. Tyrell Casillas Eosinophils/100 WBC (Bld) 2.6 % Normal 0.9-7.0 [facility] Comment on above: Performed By: #### C BC #### [facility] [address] [place] [address] Dr. Tyrell Casillas Erythrocyte distribution width (RBC) [Ratio] 11.7 % Normal 11.0-15.0 [facility] Comment on above: Performed By: #### C BC #### [facility] [address] [place] [address] Dr. Tyrell Casillas Hematocrit (Bld) [Volume fraction] 39.9 % Critically low 42.0-54.0 [facility] Comment on above: Performed By: #### C BC #### [facility] [address] [place] [address] Dr. Tyrell Casillas Hemoglobin (Bld) [Mass/Vol] 13.9 g/dL Critically low 14.0-18.0 [facility] Comment on above: Performed By: #### C BC #### [facility] [address] [place] [address] Dr. Tyrell Casillas IG # 0.02 10e3/ul Normal 0.00-0.03 [facility] Comment on above: Performed By: #### C BC #### [facility] [address] [place] [address] Dr. Tyrell Casillas IG % 0.3 % Normal 0.0-0.5 [facility] Comment on above: Performed By: #### C BC #### [facility] [address] [place] [address] Dr. Tyrell Casillas LYMPH # 1.7 103/ul Normal 1.2-3.8 [facility] Comment on above: Performed By: #### C BC #### [facility] [address] [place] [address] Dr. Tyrell Casillas Lymphocytes/100 WBC (Bld) 28.1 % Normal 20.5-60.0 [facility] Comment on above: Performed By: #### C BC #### [facility] [address] [place] [address] Dr. Tyrell Casillas MANUAL DIFF REQ NO Normal [facility] Comment on above: Performed By: #### C BC #### [facility] [address] [place] [address] Dr. Tyrell Casillas MCH (RBC) [Entitic mass] 32.3 pg Normal 25.9-34.0 [facility] Comment on above: Performed By: #### C BC #### [facility] [address] [place] [address] Dr. Tyrell Casillas MCHC (RBC) [Mass/Vol] 34.8 g/dL Normal 29.9-35.2 [facility] Comment on above: Performed By: #### C BC #### [facility] [address] [place] [address] Dr. Tyrell Casillas MCV (RBC) [Entitic vol] 92.8 fL Normal 80.0-94.0 [facility] Comment on above: Performed By: #### C BC #### [facility] [address] [place] [address] Dr. Tyrell Casillas MONO # 0.5 103/ul Normal 0.3-0.8 [facility] Comment on above: Performed By: #### C BC #### [facility] [address] [place] [address] Dr. Tyrell Casillas Monocytes/100 WBC (Bld) 8.5 % Normal 1.7-12.0 [facility] Comment on above: Performed By: #### C BC #### [facility] [address] [address] [address] Tyrell Casillas NEUT # 3.5 103/ul Normal 1.4-6.5 [facility] Comment on above: Performed By: #### C BC #### [facility] [address] [place] [address] Dr. Tyrell Casillas Neutrophils/100 WBC (Bld) 60.0 % Normal 43.0-75.0 [facility] Comment on above: Performed By: #### C BC #### [facility] [address] [place] [address] Dr. Tyrell Casillas Platelet mean volume (Bld) [Entitic vol] 8.3 fL Critically low 9.5-13.5 [facility] Comment on above: Performed By: #### C BC #### [facility] [address] [place] [address] Dr. Tyrell Casillas PLT 200 103/ul Normal 150-450 [facility] Comment on above: Performed By: #### C BC #### [facility] [address] [place] [address] Dr. Tyrell Casillas RBC 4.30 106/ul Critically low 4.70-6.10 [facility] Comment on above: Performed By: #### C BC #### [facility] [address] [place] [address] Dr. Tyrell Casillas WBC 5.9 103/ul Normal 4.0-11.0 [facility] Comment on above: Performed By: #### C BC #### [facility] [address] [address] [address] Tyrell Casillas CPKon 03-18-2023 CK [Catalytic activity/Vol] 505 U/L Critically high 39-308 [facility] Comment on above: Performed By: #### C K #### [facility] [address] [place] [address] Dr. Tyrell Casillas FREE T3on 03-18-2023 FREE T3 2.98 pg/mlL Normal 2.18-3.98 [facility] Comment on above: Performed By: #### T 4, CMP, TSH, FT3, LIPID #### [facility] [address] [address] [address] Tyrell Casillas GLYCOHEMOGLOBIN A1Con 2022 ADA RECOMMENDATION SEE BELOW Normal [facility] Comment on above: Result Comment: ADA RECOMMENDED LIMIT 4.0 - 6.0 ADA THERAPEUTIC TARGET < 7.0 ACTION SUGGESTED > 7.0 Performed By: #### C MP, CK, LIPID #### [facility] [address] [address] [address] Tyrell Casillas Glucose [Mass/Vol] 131 mg/dL Normal [facility] Comment on above: Performed By: #### C MP, CK, LIPID #### [facility] [address] [address] [address] Tyrell Casillas HbA1c (Bld) [Mass fraction] 6.2 % Normal 4.5-6.2 [facility] Comment on above: Performed By: #### C MP, CK, LIPID #### [facility] [address] [place] [address] Dr. Tyrell Casillas LIPID PROFILEon 03-18-2023 CHOL-HDL RATIO NORM SEE BELOW Normal [facility] Comment on above: Result Comment: 3.3 - 4.4 LOW RISK 4.4 - 7.1 AVERAGE RISK 7.1 - 11.0 MODERATE RISK >11.0 HIGH RISK Performed By: #### T 4, CMP, TSH, FT3, LIPID #### [facility] [address] [address] [address] Tyrell Casillas Cholesterol [Mass/Vol] 150 mg/dL Normal <=200 [facility] Comment on above: Performed By: #### T 4, CMP, TSH, FT3, LIPID #### [facility] [address] [address] [address] Tyrell Casillas Cholesterol in HDL [Mass/Vol] 42 mg/dL Normal 40-60 [facility] Comment on above: Performed By: #### T 4, CMP, TSH, FT3, LIPID #### [facility] [address] [address] [address] Tyrell Casillas Cholesterol in LDL [Mass/Vol] 84.2 mg/dL Normal [facility] Comment on above: Performed By: #### T 4, CMP, TSH, FT3, LIPID #### [facility] [address] [address] [address] Tyrell Casillas Cholesterol.total/Cho lesterol in HDL [Mass ratio] 3.6 {ratio} Normal [facility] Comment on above: Performed By: #### T 4, CMP, TSH, FT3, LIPID #### [facility] [address] [address] [address] Tyrell Casillas HDL NORMAL > or = 60 mg/dl - LO W CARDIOVASCULAR RISK <40 mg/dl - HIGH CARDIOVASCULAR RISK Normal [facility] Comment on above: Performed By: #### T 4, CMP, TSH, FT3, LIPID #### [facility] [address] [place] [address] Dr. Tyrell Casillas LDL CALC NORMAL SEE BELOW Normal [facility] Comment on above: Result Comment: <100 mg/dl OPTIMAL 100 - 129 mg/dl NEAR OR ABOVE OPTIMAL 130 - 159 mg/dl BORDERLINE HIGH 160 - 189 mg/dl HIGH >190 mg/dl VERY HIGH Performed By: #### T 4, CMP, TSH, FT3, LIPID #### [facility] [address] [place] [address] Dr. Tyrell Casillas Triglyceride [Mass/Vol] 119 mg/dL Normal <=150 [facility] Comment on above: Performed By: #### T 4, CMP, TSH, FT3, LIPID #### [facility] [address] [address] [address] Tyrell Casillas VLDL CALC 23.8 mg/dL Normal [facility] Comment on above: Performed By: #### T 4, CMP, TSH, FT3, LIPID #### [facility] [address] [address] [address] Tyrell Casillas PROF 14(COMP METB)on 023 Albumin [Mass/Vol] 4.5 g/dL Normal 3.4-5.0 [facility] Comment on above: Performed By: #### T 4, CMP, TSH, FT3, LIPID #### [facility] [address] [place], [place] [id number] Dr. Tyrell Casillas Albumin/Globulin [Mass ratio] 1.1 {ratio} Normal [facility] Comment on above: Performed By: #### T 4, CMP, TSH, FT3, LIPID #### [facility] [address] [place] [address] Dr. Tyrell Casillas ALP [Catalytic activity/Vol] 57 U/L Normal 46-116 [facility] Comment on above: Performed By: #### T 4, CMP, TSH, FT3, LIPID #### [facility] [address] [place] [address] Dr. Tyrell Casillas ALT [Catalytic activity/Vol] 49 U/L Normal 16-63 [facility] Comment on above: Performed By: #### T 4, CMP, TSH, FT3, LIPID #### [facility] [address] [place] [address] Dr. Tyrell Casillas Anion gap [Moles/Vol] 12.7 mmol/L Normal [facility] Comment on above: Performed By: #### T 4, CMP, TSH, FT3, LIPID #### [facility] [address] [place] [address] Dr. Tyrell Casillas AST [Catalytic activity/Vol] 35 U/L Normal 15-37 [facility] Comment on above: Performed By: #### T 4, CMP, TSH, FT3, LIPID #### [facility] [address] [place] [address] Dr. Tyrell Casillas Bilirubin [Mass/Vol] 0.4 mg/dL Normal 0.2-1.0 [facility] Comment on above: Performed By: #### T 4, CMP, TSH, FT3, LIPID #### [facility] [address] [place] [address] Dr. Tyrell Casillas Calcium [Mass/Vol] 9.5 mg/dL Normal 8.5-10.1 [facility] Comment on above: Performed By: #### T 4, CMP, TSH, FT3, LIPID #### [facility] [address] [place] [address] Dr. Tyrell Casillas Chloride [Moles/Vol] 106 mmol/L Normal 98-107 [facility] Comment on above: Performed By: #### T 4, CMP, TSH, FT3, LIPID #### [facility] [address] [place] [address] Dr. Tyrell Casillas CO2 [Moles/Vol] 27.4 mmol/L Normal 21.0-32.0 [facility] Comment on above: Performed By: #### T 4, CMP, TSH, FT3, LIPID #### [facility] [address] [place] [address] Dr. Tyrell Casillas Creatinine [Mass/Vol] 0.96 mg/dL Normal 0.70-1.30 [facility] Comment on above: Performed By: #### T 4, CMP, TSH, FT3, LIPID #### [facility] [address] [place] [address] Dr. Tyrell Casillas EGFR-AF SAO TOMEAN >60 Normal >=60 [facility] Comment on above: Performed By: #### T 4, CMP, TSH, FT3, LIPID #### [facility] [address] [place] [address] Dr. Tyrell Casillas EGFR-NON AF SAO TOMEAN >60 Normal >=60 [facility] Comment on above: Performed By: #### T 4, CMP, TSH, FT3, LIPID #### [facility] [address] [place] [address] Dr. Tyrell Casillas Globulin (S) [Mass/Vol] 4.0 g/dL Normal [facility] Comment on above: Performed By: #### T 4, CMP, TSH, FT3, LIPID #### [facility] [address] [place] [address] Dr. Tyrell Casillas Glucose [Mass/Vol] 101 mg/dL Normal 74-106 [facility] Comment on above: Performed By: #### T 4, CMP, TSH, FT3, LIPID #### [facility] [address] [place] [address] Dr. Tyrell Casillas Potassium [Moles/Vol] 4.1 mmol/L Normal 3.5-5.1 [facility] Comment on above: Performed By: #### T 4, CMP, TSH, FT3, LIPID #### [facility] [address] [place] [address] Dr. Tyrell Casillas Protein [Mass/Vol] 8.5 g/dL Critically high 6.4-8.2 [facility] Comment on above: Performed By: #### T 4, CMP, TSH, FT3, LIPID #### [facility] [address] [place] [address] Dr. Tyrell Casillas Sodium [Moles/Vol] 142 mmol/L Normal 136-145 [facility] Comment on above: Performed By: #### T 4, CMP, TSH, FT3, LIPID #### [facility] [address] [place] [address] Dr. Tyrell Casillas Urea nitrogen [Mass/Vol] 18.0 mg/dL Normal 7.0-18.0 [facility] Comment on above: Performed By: #### T 4, CMP, TSH, FT3, LIPID #### [facility] [address] [place] [address] Dr. Tyrell Casillas Urea nitrogen/Creatinine [Mass ratio] 18.8 mg/mg Normal [facility] Comment on above: Performed By: #### T 4, CMP, TSH, FT3, LIPID #### [facility] [address] [place] [address] Dr. Tyrell Casillas T4on 03-18-2023 T4 [Mass/Vol] 5.60 ug/dL Normal 4.50-12.10 [facility] Comment on above: Performed By: #### T 4, CMP, TSH, FT3, LIPID #### [facility] [address] [place] [address] Dr. Tyrell Casillas TSHon 03-18-2023 TSH 0.892 uIU/mL Normal 0.358-3.740 [facility] Comment on above: Performed By: #### T 4, CMP, TSH, FT3, LIPID #### [facility] [address] [place] [address] Dr. Tyrell Casillas CPKon 08-16-2022 CK [Catalytic activity/Vol] 444 U/L Critically high 39-308 [facility] Comment on above: Performed By: #### C MP, CK, LIPID #### [facility] [address] [address] [address] Tyrell Casillas LIPID PROFILEon 08-16-2022 CHOL-HDL RATIO NORM SEE BELOW Normal [facility] Comment on above: Result Comment: 3.3 - 4.4 LOW RISK 4.4 - 7.1 AVERAGE RISK 7.1 - 11.0 MODERATE RISK >11.0 HIGH RISK Performed By: #### C MP, CK, LIPID #### [facility] [address] [address] [address] Tyrell Casillas Cholesterol [Mass/Vol] 132 mg/dL Normal <=200 [facility] Comment on above: Performed By: #### C MP, CK, LIPID #### [facility] [address] [address] [address] Tyrell Casillas Cholesterol in HDL [Mass/Vol] 39 mg/dL Critically low 40-60 [facility] Comment on above: Performed By: #### C MP, CK, LIPID #### [facility] [address] [address] [address] Tyrell Casillas Cholesterol in LDL [Mass/Vol] 72.8 mg/dL Normal [facility] Comment on above: Performed By: #### C MP, CK, LIPID #### [facility] [address] [address] [address] Tyrell Casillas Cholesterol.total/Cho lesterol in HDL [Mass ratio] 3.4 {ratio} Normal [facility] Comment on above: Performed By: #### C MP, CK, LIPID #### [facility] [address] [address] [address] Tyrell Casillas HDL NORMAL > or = 60 mg/dl - LO W CARDIOVASCULAR RISK <40 mg/dl - HIGH CARDIOVASCULAR RISK Normal [facility] Comment on above: Performed By: #### C MP, CK, LIPID #### [facility] [address] [address] [address] Tyrell Casillas LDL CALC NORMAL SEE BELOW Normal [facility] Comment on above: Result Comment: <100 mg/dl OPTIMAL 100 - 129 mg/dl NEAR OR ABOVE OPTIMAL 130 - 159 mg/dl BORDERLINE HIGH 160 - 189 mg/dl HIGH >190 mg/dl VERY HIGH Performed By: #### C MP, CK, LIPID #### [facility] [address] [place] [address] Dr. Tyrell Casillas Triglyceride [Mass/Vol] 101 mg/dL Normal <=150 [facility] Comment on above: Performed By: #### C MP, CK, LIPID #### [facility] [address] [place] [address] Dr. Tyrell Casillas VLDL CALC 20.2 mg/dL Normal [facility] Comment on above: Performed By: #### C MP, CK, LIPID #### [facility] [address] [place] [address] Dr. Tyrell Casillas PROF 14(COMP METB)on 022 Albumin [Mass/Vol] 4.4 g/dL Normal 3.4-5.0 [facility] Comment on above: Performed By: #### C MP, CK, LIPID #### [facility] [address] [place] [address] Dr. Tyrell Casillas Albumin/Globulin [Mass ratio] 1.3 {ratio} Normal [facility] Comment on above: Performed By: #### C MP, CK, LIPID #### [facility] [address] [place] [address] Dr. Tyrell Casillas ALP [Catalytic activity/Vol] 55 U/L Normal 46-116 [facility] Comment on above: Performed By: #### C MP, CK, LIPID #### [facility] [address] [place] [address] Dr. Tyrell Casillas ALT [Catalytic activity/Vol] 48 U/L Normal 16-63 [facility] Comment on above: Performed By: #### C MP, CK, LIPID #### [facility] [address] [place] [address] Dr. Tyrell Casillas Anion gap [Moles/Vol] 12.1 mmol/L Normal [facility] Comment on above: Performed By: #### C MP, CK, LIPID #### [facility] [address] [address] [address] Tyrell Casillas AST [Catalytic activity/Vol] 35 U/L Normal 15-37 [facility] Comment on above: Performed By: #### C MP, CK, LIPID #### [facility] [address] [address] [address] Tyrell Casillas Bilirubin [Mass/Vol] 0.4 mg/dL Normal 0.2-1.0 [facility] Comment on above: Performed By: #### C MP, CK, LIPID #### [facility] [address] [address] [address] Tyrell Casillas Calcium [Mass/Vol] 9.0 mg/dL Normal 8.5-10.1 [facility] Comment on above: Performed By: #### C MP, CK, LIPID #### [facility] [address] [place] [address] Dr. Tyrell Casillas Chloride [Moles/Vol] 106 mmol/L Normal 98-107 [facility] Comment on above: Performed By: #### C MP, CK, LIPID #### [facility] [address] [address] [address] Tyrell Casillas CO2 [Moles/Vol] 25.0 mmol/L Normal 21.0-32.0 [facility] Comment on above: Performed By: #### C MP, CK, LIPID #### [facility] [address] [place] [address] Dr. Tyrell Casillas Creatinine [Mass/Vol] 0.85 mg/dL Normal 0.70-1.30 [facility] Comment on above: Performed By: #### C MP, CK, LIPID #### [facility] [address] [place] [address] Dr. Tyrell Casillas EGFR-AF SAO TOMEAN >60 Normal >=60 [facility] Comment on above: Performed By: #### C MP, CK, LIPID #### [facility] [address] [place] [address] Dr. Tyrell Casillas EGFR-NON AF SAO TOMEAN >60 Normal >=60 [facility] Comment on above: Performed By: #### C MP, CK, LIPID #### [facility] [address] [address] [address] Tyrell Casillas Globulin (S) [Mass/Vol] 3.4 g/dL Normal [facility] Comment on above: Performed By: #### C MP, CK, LIPID #### [facility] [address] [address] [address] Tyrell Casillas Glucose [Mass/Vol] 106 mg/dL Normal 74-106 [facility] Comment on above: Performed By: #### C MP, CK, LIPID #### [facility] [address] [address] [address] Tyrell Casillas Potassium [Moles/Vol] 4.1 mmol/L Normal 3.5-5.1 [facility] Comment on above: Performed By: #### C MP, CK, LIPID #### [facility] [address] [address] [address] Tyrell Casillas Protein [Mass/Vol] 7.8 g/dL Normal 6.4-8.2 [facility] Comment on above: Performed By: #### C MP, CK, LIPID #### [facility] [address] [address] [address] Tyrell Casillas Sodium [Moles/Vol] 139 mmol/L Normal 136-145 [facility] Comment on above: Performed By: #### C MP, CK, LIPID #### [facility] [address] [address] [address] Tyrell Casillas Urea nitrogen [Mass/Vol] 15.0 mg/dL Normal 7.0-18.0 [facility] Comment on above: Performed By: #### C MP, CK, LIPID #### [facility] [address] [address] [address] Tyrell Casillas Urea nitrogen/Creatinine [Mass ratio] 17.6 mg/mg Normal [facility] Comment on above: Performed By: #### C MP, CK, LIPID #### [facility] [address] [address] [address] Tyrell Casillas Coding Summaryon 05-31-2020 Coding Summary CODING DATE: 05/31/2020 [facility] STATUS: Home PAYOR: Medicare MC APC DESCRIPTION [...] Eugenie George Date Saved: 05/31/2020 01:32 pm [facility] Provider Orderson 05-23-2020 Provider Orders [id number] [facility] C[facility] Summaryon 05-19-2020 Coding Summary CODING DATE: 05/19/2020 [facility] STATUS: Home PAYOR: Medicare MC APC DESCRIPTION 5115 Level 5 Musculoskeletal Procedures ADMIT DX: REASON FOR VISIT DX: M16.11 Unilateral primary osteoarthritis, right hip FINAL DX: PRINCIPAL: M16.11 Unilateral primary osteoarthritis, right hip SECONDARY: I10 Essential (primary) hypertension I25.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), and cerebral infarction without residual deficits PYMT PROC APC STAT DESCRIPTION DOCTOR NAME DATE 65568 5115 J1 Arthroplasty, acetabular Quirino, Bairon And [...] Kee Revised Date Saved: 05/18/2020 12:22 pm [facility] Consent Formson 05-18-2020 Consent Forms [id number] .00OTGTIFF [facility] Medication Managementon 05-03 Medication Management [id number] Record[facility] 05-18-2020 Outside Records [id number] .[facility] Provider Orderson 05-18-2020 Provider Orders [id number] .[facility] Telemetry Stripson 0 Telemetry Strips [id number] .[facility] .Auto Diff 1on 05-17-2020 Auto Wake % 7 % Normal 11-14 [facility] Comment on above: Performed By: #### 7 354713, 82629476, [id number] #### [facility] (DEFAULT) [address] [place] [address] 86693 Baso Abs# 0.0 x10 Normal 0.0-0.2 [facility] Comment on above: Performed By: #### 7 404078, 32784391, [id number] #### [facility] (DEFAULT) [address] [place] [address]698 Basophils/100 WBC (Bld) 0.2 % Normal 0.2-2.0 [facility] Comment on above: Performed By: #### 7 330879, 58720454, [id number] #### [facility] (DEFAULT) [address] [place] [address] 06447 Eos Abs# 0.1 x10 Normal 0.0-0.4 [facility] Comment on above: Performed By: #### 7 652831, 93598425, [id number] #### [facility] (DEFAULT) [address] [place] [address] 34611 Eosinophils/100 WBC (Bld) 1.5 % Normal 0.9-4.0 [facility] Comment on above: Performed By: #### 7 259964, 36261149, [id number] #### [facility] (DEFAULT) [address] [place] [address] 31371 Lymphocytes (Bld) [#/Vol] 1.3 x10 Normal 1.3-2.9 [facility] Comment on above: Performed By: #### 7 268003, 26990505, [id number] #### [facility] (DEFAULT) [address] [place] [address] Lymphocytes/100 WBC (Bld) 15 % Normal 14-48 [facility] Comment on above: Performed By: #### 7 953115, 25634236, [id number] #### [facility] (DEFAULT) [address] [place] [address] Wake Abs# 0.6 x10 Normal 0.0-0.8 [facility] Comment on above: Performed By: #### 7 935293, 26410528, [id number] #### [facility] (DEFAULT) [address] [place] [address] Neut Abs# 6.4 x10 Normal 1.5-9.2 [facility] Comment on above: Performed By: #### 7 796197, 97216198, [id number] #### [facility] (DEFAULT) [address] [place] [address] Neutrophils/100 WBC (Bld) 76 % Normal 44-88 [facility] Comment on above: Performed By: #### 7 401939, 27723384, [id number] #### [facility] (DEFAULT) [address] [place] [address] CBC w/ Auto Diffon 0 Erythrocyte distribution width (RBC) [Ratio] 11.9 % Normal 11.5-15.0 [facility] Comment on above: Performed By: #### 7 404096, 13611314, [id number] #### [facility] (DEFAULT) [address] [place] [address] Hematocrit (Bld) [Volume fraction] 26.9 % Low 34.8-51.9 [facility] Comment on above: Performed By: #### 7 861829, 95518031, [id number] #### [facility] (DEFAULT) [address] [place] [address] Hemoglobin (Bld) [Mass/Vol] 9.2 g/dL Low 11.8-17.7 [facility] Comment on above: Performed By: #### 7 266314, 09946001, [id number] #### [facility] (DEFAULT) [address] [place] [address] 44451 Man Diff? Auto Normal [facility] Comment on above: Performed By: #### 7 907455, 78099795, [id number] #### [facility] (DEFAULT) [address] [place] [address] 89842 MCH (RBC) [Entitic mass] 32 pg Normal 24-34 [facility] Comment on above: Performed By: #### 7 127186, 89742947, [id number] #### [facility] (DEFAULT) [address] [place] [address] 25377 MCHC (RBC) [Mass/Vol] 34 g/dL Normal 26-37 [facility] Comment on above: Performed By: #### 7 748282, 78183641, [id number] #### [facility] (DEFAULT) [address] [place] [address] 19500 MCV (RBC) [Entitic vol] 94 fL Normal 81-100 [facility] Comment on above: Performed By: #### 7 130041, 47483495, [id number] #### [facility] (DEFAULT) [address] [place] [address] 08016 Platelet mean volume (Bld) [Entitic vol] 9.4 fL Normal 6.3-10.2 [facility] Comment on above: Performed By: #### 7 620959, 36133211, [id number] #### [facility] (DEFAULT) [address] [place] [address] 57321 Platelets (Bld) [#/Vol] 203 x10 Normal 138-427 [facility] Comment on above: Performed By: #### 7 455356, 69524545, [id number] #### [facility] (DEFAULT) [address] [place] [address] 77632 RBC (Bld) [#/Vol] 2.87 x10 Low 3.70-5.30 [facility] [place] Comment on above: Performed By: #### 7 823204, 56393723, [id number] #### [facility] (DEFAULT) [address] [place] [address] WBC (Bld) [#/Vol] 8.5 x10 Normal 3.5-10.5 [facility] [place] Comment on above: Performed By: #### 7 902234, 42827946, [id number] #### [facility] (DEFAULT) [address] [place] [address] Education Noteon 05-17-2020 Education Note Education Materials [...] done to rule of a DVT. Normal [facility] 05-17-2020 Tube Collected Yes [facility] Comment on above: Performed By: #### 7 285552, 43184328, [id number] #### [facility] (DEFAULT) [address] [place] [address] Inpatient Patient Summaryon 05-17-2020 Inpatient Patient Summary [address] [address] Patient Discharge Instructions Name: GRETCHEN DELATORRE : 1950 Patient Address: [address] [place] [address] [address] [address] Primary Care Provider: Name: DAKSHA OREILLY After you are discharged if you find you have any questions, please, call [phone] ext [phone] to speak to a nurse. Discharge Diagnosis: Primary osteoarthritis of right hip Prescription Information: If you have been given a prescription for narcotics, seek immediate medical attention if you have any difficulty breathing or any sudden status changes such as confusion and sleepiness. If you or anyone you know is experiencing suicidal thoughts, mental health, alcohol and/or drug addiction problems; contact the [facility] 26/05 Crisis Hotline -Text 4HOPE to 631570. If you received any narcotics, sedation, or [...] business decisions or sign any legal documents [facility] would like to thank you for allowing us to assist you with your healthcare needs. The following includes patient education materials and information regarding your injury/illness. GRETCHEN DELATORRE has been given the following list of follow-up instructions, prescriptions, and patient education materials: Follow-up Instructions With: Address: When: Bairon Win [address] [place] [address] [address] [place] [address] Business (2) 05/25/2020 2:00 PM With: Address: When: DAKSHA SHARMILA [address] [place] [address] [place] [address] Business (1) Medications During the [...] for Disease Control and Prevention July 2014 [facility] Nutrition Noteon 05-17-2020 Nutrition Note Pt eating well avg 70-100% of meals and taking supplements as ordered. No new wts. Labs reviewed, post op anemia noted. No new rec'd at this time. Will continue to follow. [facility] Pharmacy Noteon 05-17-2020 Pharmacy Note I have [...] [Verified on: 05/17/2020 08:32 EDT] Ethel Echavarria [facility] Progress Note - Nurseon - Progress Note - Nurse Dr. Aguila visited [...] on: 05/17/2020 17:30 EDT] Patricia Bustillos RN [facility] Progress Note-Physicianon Progress Note-Physician DATE OF POSTOPERATIVE [...] Win's office. Bert Aguila DO JOB #: [id number] bk [Electronically Signed on: 05/18/2020 11:35 EDT] BERT AGUILA DO [Verified on: 05/18/2020 11:35 EDT] BERT AGUILA DO [Transcribed on: 05/17/2020 14:48 EDT] GDU Normal [facility] .Auto Diff on 05-16-2020 Auto Wake % 9 % Normal 1-12 [facility] Comment on above: Performed By: #### 7 376484, 74832647, [id number] #### [facility] (DEFAULT) [address] [place] [address]8419 Baso Abs# 0.0 x10 Normal 0.0-0.2 [facility] Comment on above: Performed By: #### 7 390697, 58373982, [id number] #### [facility] (DEFAULT) [address] [place] [address] 002[address] Basophils/100 WBC (Bld) 0.1 % Low 0.2-2.0 [facility] Comment on above: Performed By: #### 7 178619, 18533863, [id number] #### [facility] (DEFAULT) [address] [place] [address] 57857 Eos Abs# 0.0 x10 Normal 0.0-0.4 [facility] Comment on above: Performed By: #### 7 339013, 86811814, [id number] #### [facility] (DEFAULT) [address] [place] [address] 02785 Eosinophils/100 WBC (Bld) 0.2 % Low 0.9-4.0 [facility] Comment on above: Performed By: #### 7 192615, 26798039, [id number] #### [facility] (DEFAULT) [address] [place] [address] 02218 Lymphocytes (Bld) [#/Vol] 1.8 x10 Normal 1.3-2.9 [facility] Comment on above: Performed By: #### 7 616837, 40875937, [id number] #### [facility] (DEFAULT) [address] [place] [address] 43693 Lymphocytes/100 WBC (Bld) 14 % Normal 14-48 [facility] Comment on above: Performed By: #### 7 599094, 72921920, [id number] #### [facility] (DEFAULT) [address] [place] [address] 88406 Wake Abs# 1.1 x10 High 0.0-0.8 [facility] Comment on above: Performed By: #### 7 972111, 99137910, [id number] #### [facility] (DEFAULT) [address] [place] [address] Neut Abs# 9.9 x10 High 1.5-9.2 [facility] Comment on above: Performed By: #### 7 074268, 37574636, [id number] #### [facility] (DEFAULT) [address] [place] [address] Neutrophils/100 WBC (Bld) 77 % Normal 44-88 [facility] Comment on above: Performed By: #### 7 034723, 54067906, [id number] #### [facility] (DEFAULT) [address] [place] [address] CBC w/ Auto Diffon 0 Erythrocyte distribution width (RBC) [Ratio] 12.1 % Normal 11.5-15.0 [facility] Comment on above: Performed By: #### 7 712297, 08146161, [id number] #### [facility] (DEFAULT) [address] [place] [address] Hematocrit (Bld) [Volume fraction] 30.8 % Low 34.8-51.9 [facility] Comment on above: Performed By: #### 7 076319, 33074879, [id number] #### [facility] (DEFAULT) [address] [place] [address] Hemoglobin (Bld) [Mass/Vol] 10.5 g/dL Low 11.8-17.7 [facility] Comment on above: Performed By: #### 7 852821, 36004285, [id number] #### [facility] (DEFAULT) [address] [place] [address] Man Diff? Auto Normal [facility] Comment on above: Performed By: #### 7 957117, 08022581, [id number] #### [facility] (DEFAULT) [address] [place] [address] MCH (RBC) [Entitic mass] 32 pg Normal 24-34 [facility] Comment on above: Performed By: #### 7 162825, 80936250, [id number] #### [facility] (DEFAULT) [address] [place] [address] 91476 MCHC (RBC) [Mass/Vol] 34 g/dL Normal 26-37 [facility] Comment on above: Performed By: #### 7 660137, 06353064, [id number] #### [facility] (DEFAULT) [address] [place] [address] 66331 MCV (RBC) [Entitic vol] 93 fL Normal 81-100 [facility] Comment on above: Performed By: #### 7 024898, 95255831, [id number] #### [facility] (DEFAULT) [address] [place] [address] 89788 Platelet mean volume (Bld) [Entitic vol] 9.2 fL Normal 6.3-10.2 [facility] Comment on above: Performed By: #### 7 497434, 93473165, [id number] #### [facility] (DEFAULT) [address] [place] [address] 61282 Platelets (Bld) [#/Vol] 238 x10 Normal 138-427 [facility] Comment on above: Performed By: #### 7 138226, 45687587, [id number] #### [facility] (DEFAULT) [address] [place] [address] 89231 RBC (Bld) [#/Vol] 3.31 x10 Low 3.70-5.30 [facility] [place] Comment on above: Performed By: #### 7 896061, 41842966, [id number] #### [facility] (DEFAULT) [address] [place] [address] 92709 WBC (Bld) [#/Vol] 12.9 x10 High 3.5-10.5 [facility] [place] Comment on above: Performed By: #### 7 414464, 39767828, [id number] #### [facility] (DEFAULT) [address] [place] [address] Progress Note-Physicianon Progress Note-Physician DATE OF POSTOPERATIVE [...] PROGNOSIS: Good. Bert Aguila DO JOB #: [id number] bk [Electronically Signed on: 05/17/2020 11:24 EDT] BERT AGUILA DO [Verified on: 05/17/2020 11:24 EDT] RENAE BERT DO [Transcribed on: 05/16/2020 13:06 EDT] GDU Normal [facility] .Auto Diff 1on 05-15-2020 Auto Wake % 1 % Normal 1-12 [facility] Comment on above: Performed By: #### 7 839786, 87640371, [id number] #### [facility] (DEFAULT) [address] [place] [address] 77514 Baso Abs# 0.0 x10 Normal 0.0-0.2 [facility] Comment on above: Performed By: #### 7 709981, 28580621, [id number] #### [facility] (DEFAULT) [address] [place] [address] 25891 Basophils/100 WBC (Bld) 0.1 % Low 0.2-2.0 [facility] Comment on above: Performed By: #### 7 661091, 88766890, [id number] #### [facility] (DEFAULT) [address] [place] [address] 24758 Eos Abs# 0.0 x10 Normal 0.0-0.4 [facility] Comment on above: Performed By: #### 7 245350, 90990265, [id number] #### [facility] (DEFAULT) [address] [place] [address] 51767 Eosinophils/100 WBC (Bld) 0.1 % Low 0.9-4.0 [facility] Comment on above: Performed By: #### 7 357937, 90533122, [id number] #### [facility] (DEFAULT) [address] [place] [address] 29483 Lymphocytes (Bld) [#/Vol] 0.4 x10 Low 1.3-2.9 [facility] Comment on above: Performed By: #### 7 967593, 53979145, [id number] #### [facility] (DEFAULT) [address] [place] [address] 77642 Lymphocytes/100 WBC (Bld) 4 % Low 14-48 [facility] Comment on above: Performed By: #### 7 070104, 03520667, [id number] #### [facility] (DEFAULT) [address] [place] [address] Wake Abs# 0.2 x10 Normal 0.0-0.8 [facility] Comment on above: Performed By: #### 7 814675, 47899323, [id number] #### [facility] (DEFAULT) [address] [place] [address] Neut Abs# 10.0 x10 High 1.5-9.2 [facility] Comment on above: Performed By: #### 7 694376, 30725743, [id number] #### [facility] (DEFAULT) [address] [place] [address] Neutrophils/100 WBC (Bld) 94 % High 44-88 [facility] Comment on above: Performed By: #### 7 254874, 09090263, [id number] #### [facility] (DEFAULT) [address] [place] [address] Anesthesia Noteon 05-15-2020 Anesthesia Note Patient: LA [...] AAA (abdominal aortic aneurysm) / SNOMED CT 692532718 / Confirmed CAD (coronary artery disease) / SNOMED CT 48374180 / Confirmed Myocardial infarct / SNOMED CT 46198514 / Confirmed Resolved: CVA, old, cognitive deficits / SNOMED CT 7950049953 Histories Family History: Entire family history is negative. Procedure history: AAA - Abdominal aortic aneurysm (866595687) in 2012 at 62 Years. AAA - Abdominal aortic aneurysm (733132305) in 2005 at 55 Years. quaddruple cardiac byapss in 2005 at 55 Years. back surgery in 2004 at 54 Years. knee scope in 2004 at 54 Years. Comments: 04/27/2020 14:05 Abimbola Pickering RN right Hip arthroplasty (406357019) in 2003 at 53 Years. AAA - Abdominal aortic aneurysm (252872621) in 2002 at 52 Years. Social History [...] ECG interpretation: SR, occ PVCs, NSTWA. Plan [place] [employer]#( A) physical status classification: Class III. Anesthetic Preoperative Plan Anesthesia: General. . Anesthetic plan, risks, benefits, and alternatives discussed with the patient and/or family. Patient verbalized understanding. Informed consent was given. Consent was signed by the patient. [Electronically Signed on: 05/15/2020 08:26 EDT] Tom Casiano MD [Verified on: 05/15/2020 08:26 EDT] Tom Casiano MD Normal [facility] CBC w/ Auto Diffon 0 Erythrocyte distribution width (RBC) [Ratio] 12.1 % Normal 11.5-15.0 [facility] Comment on above: Performed By: #### 7 046085, 33038402, [id number] #### [facility] (DEFAULT) [address] [place] [address] 83068 Hematocrit (Bld) [Volume fraction] 33.2 % Low 34.8-51.9 [facility] Comment on above: Performed By: #### 7 027807, 16086258, [id number] #### [facility] (DEFAULT) [address] [place] [address] 83585 Hemoglobin (Bld) [Mass/Vol] 11.5 g/dL Low 11.8-17.7 [facility] Comment on above: Performed By: #### 7 135218, 78805760, [id number] #### [facility] (DEFAULT) [address] [place] [address] Man Diff? Auto Normal [facility] Comment on above: Performed By: #### 7 856156, 35559677, [id number] #### [facility] (DEFAULT) [address] [place] [address] MCH (RBC) [Entitic mass] 32 pg Normal 24-34 [facility] Comment on above: Performed By: #### 7 084129, 02038266, [id number] #### [facility] (DEFAULT) [address] [place] [address] MCHC (RBC) [Mass/Vol] 35 g/dL Normal 26-37 [facility] Comment on above: Performed By: #### 7 681404, 16862735, [id number] #### [facility] (DEFAULT) [address] [place] [address] MCV (RBC) [Entitic vol] 92 fL Normal 81-100 [facility] Comment on above: Performed By: #### 7 412689, 17082509, [id number] #### [facility] (DEFAULT) [address] [place] [address] Platelet mean volume (Bld) [Entitic vol] 9.5 fL Normal 6.3-10.2 [facility] Comment on above: Performed By: #### 7 281583, 25562788, [id number] #### [facility] (DEFAULT) [address] [place] [address] Platelets (Bld) [#/Vol] 205 x10 Normal 138-427 [facility] Comment on above: Performed By: #### 7 864646, 54663063, [id number] #### [facility] (DEFAULT) [address] [place] [address] RBC (Bld) [#/Vol] 3.62 x10 Low 3.70-5.30 [facility] [place] Comment on above: Performed By: #### 7 750818, 04422493, [id number] #### [facility] (DEFAULT) [address] [place] [address] WBC (Bld) [#/Vol] 10.6 x10 High 3.5-10.5 [facility] [place] Comment on above: Performed By: #### 7 833052, 62712307, [id number] #### [facility] (DEFAULT) [address] [place] [address] 27032 History and Physicalon 05-15 History and Physical [id number] .00OTGTIFF Normal [facility] MAGR Intraoperative Recordon 05-15-2020 MAGR Intraoperative Record MAGR Intra-Op Record Summary Primary Physician: Bairon Win DO Finalized Date/Time: 05/15/20 17:18:47 Pt. Name: GRETCHEN DELATORRE D.O.B./Sex: 1950 MALE Med Rec #: [id number] Physician: Bairon Win DO Financial #: [id number] Pt. Type: O Room/Bed: [facility] Admit/Disch: 05/15/20 06:07:00 - Institution: Case Times [...] Role Performed Surgeon - Primary Anesthesiologist of Supervisor [employer] Record Time In 05/15/20 09:01:00 05/15/20 09:01:00 05/15/20 09:01:00 Time Out 05/15/20 11:20:00 05/15/20 11:20:00 05/15/20 11:20:00 Procedure Arthroplasty Total Arthroplasty Total Arthroplasty Total Hip(Right) Hip(Right) Hip(Right) Last Modified By: Ethel Gibson RN, Stephanie RN Sauer, Stephanie RN 05/15/20 14:15:50 05/15/20 14:15:50 05/15/20 14:15:50 Entry 4 Entry 5 Entry 6 Case Attendee Megan GONSALES, Mauricio Foreman Brittany E CST Regina DRY COLOR TESTER Role Performed Scrub Personnel User Experience Architect User Experience Architect Time In 05/15/20 09:01:00 05/15/20 09:01:00 [...] Bairon Win James Huddleston, James By: Pedro Fiorew DO Size 54MM 58MM Traffic Personnel Supervisor [employer] DEPUY DEPUY Catalog # Lot Number [id number] Expiration Date 03/02/30 04/02/30 Serial Number REF [id number] REF [id number] REF [id number] Device Identifier Human Readable PAUL Machine Readable PAUL MR Class Implant Usage Data Site Hip R Hip R Hip R Quantity 1 1 1 Reason for Explant Reason Not Retained Explant Disposition 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30) Yes Yes Yes Last Modified By: Ethel Gibson RN, Stephanie RN Sauer, Stephanie RN 05/15/20 15:23:55 05/15/20 15:23:55 05/15/20 15:23:55 Entry 7 Procedure Arthroplasty Total Hip(Right) Implant Action Implant Description DEPUY M SPEC METAL FEMORAL HEAD Implant Information Implant/Explant 05/15/20 10:25:00 Date/Time Implanted/Explanted Bairon Win By: Pedro DO Size 036MM 10/16 TAPER Traffic Personnel Supervisor DEPUY Catalog # Lot Number [id number] Expiration Date 07/03/24 Serial Number REF 1365-51-000 Device Identifier Human Readable PAUL Machine Readable PAUL MR Class Implant Usage Data Site Hip R Quantity 1 Reason for Explant Reason Not Retained Explant Disposition 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 Name: GRETCHEN DELATORRE/Sex: 1950 MALE Med Rec #: [id number] Physician: Bairon Win DO Financial #: [id number] Pt. Type: D Room/Bed: 221/1 Admit/Disch: 05/15/20 06:07:00 - Institution: PACU Case Times MAGR Entry 1 In PACU I 05/15/20 11:15:00 Discharge from PACU 05/15/20 12:05:00 I Last Modified By: Francesca Pastrana RN 05/15/20 12:19:29 Finalized By: Francesca Pastrana RN Document Signatures Signed By: Francesca Pastrana RN 05/15/20 [facility] 05-15-2020 MAGR Preoperative Record MAGR Pre-Op Record Summary Primary Physician: Bairon Win DO Finalized Date/Time: 05/15/20 13:36:44 Pt. Name: GRETCHEN DELATORRE/Sex: 1950 MALE Med Rec #: [id number] Physician: Bairon Win DO Financial #: [id number] Pt. Type: O Room/Bed: 221/1 Admit/Disch: 05/15/20 [...] Denies pacemaker/defib. Denies sleep apnea. Finalized By: rFancesca Pastrana RN Document Signatures Signed By: Francesca Pastrana RN 05/15/20 13:36 [facility] Nutrition Noteon 05-15-2020 Nutrition Note Pt [...] vitamins/ minerals already in place. To follow. [facility] Operative Report - Surgeon/P venkatesh 05-15-2020 [...] impacted a 56 mm gription cup ( InitMeuy) this was secured with 2 6.5 mm [...] both with saline and then also diluted Phoenix dine mixture. The fascial planes were injected [...] on: 05/15/2020 12:17 EDT] Bairon Win DO [facility] Pharmacy Noteon 05-15-2020 Pharmacy Note I have [...] [Verified on: 05/15/2020 15:26 EDT] Tahira Reyna [facility] XR Hip Complete Righton 05-03 XR Hip [...] Javier 05/15/20 11:59 a Technologist: Poncho ARCOS [facility] ABORhon 05-14-2020 ABO and Rh group Nom (Bld) Hx Check: Not Found Anti-A: 4+ Anti-B: 0 Anti-D: 4+ DCon: NT A1: 0 B: 4+ ABORh Interp: A [facility] Comment on above: Performed By: #### 1 [id number] #### [facility] (DEFAULT) [address] [place] [address] ABORh Retypeon 05-14-2020 ABO and Rh group Nom (Bld) Ordered by Discern. Anti-A: 4+ Anti-B: 0 Anti-D: 4+ DCon: NT A1: 0 B: 4+ ABORh Retype: A [facility] Comment on above: Performed By: #### 1 [id number] #### [facility] (DEFAULT) [address] [place] [address] ABSC Gelon 05-14-2020 ABSC Gel Negative [facility] Comment on above: Performed By: #### 1 [id number] #### [facility] (DEFAULT) [address] [place] [address] Blood Bank IDon 05-14-2020 Blood Bank ID BBID: [id number] [facility] Comment on above: Performed By: #### 1 [id number] #### [facility] (DEFAULT) [address] [place] [address] 10326 H&Hon 05-14-2020 Hematocrit (Bld) [Volume fraction] 38.3 % Normal 34.8-51.9 [facility] Comment on above: Performed By: #### 1 [id number] #### [facility] (DEFAULT) [address] [place] [address] 10589 Hemoglobin (Bld) [Mass/Vol] 13.3 g/dL Normal 11.8-17.7 [facility] Comment on above: Performed By: #### 1 [id number] #### [facility] (DEFAULT) [address] [place] [address] SARS-CoV-2 (COVID-19) PCRon 05-14-2020 COVID-19 PCR Not Detected Normal Not Detected [facility] Comment on above: Performed By: #### 1 [id number] #### [facility] (DEFAULT) [address] [place] [address] Progress Note - Nurseon 05-03 Progress Note - Nurse Spoke with pt regarding arrival time of 0600 and NPO after midnight. Pt instructed he will need to be tested for COVID on Friday when he comes in for type and screen. Verbalized understanding. [Electronically Signed on: 05/12/2020 09:38 EDT] Sara Alvarez RN [Verified on: 05/12/2020 09:38 EDT] Sara Alvarez RN [facility] Coding Summaryon 05-10-2020 Coding Summary CODING DATE: 05/10/2020 [facility] STATUS: Home PAYOR: Medicare MC APC DESCRIPTION [...] Eugenie George Date Saved: 05/10/2020 01:27 pm [facility] Billing Authorizationson Billing Authorizations [id number] Management[facility] Medication Management [id number] .[facility] Coding Summaryon 05-08-2020 Coding Summary CODING DATE: 05/08/2020 [facility] STATUS: Home PAYOR: Medicare MC ADMIT DX: [...] Eugenie George Date Saved: 05/08/2020 01:38 pm [facility] Progress Note - Nurseon 04-04 Progress Note - Nurse PAT review done sara villarreal Cardiac workup, no orders received. [Electronically Signed on: 05/02/2020 07:05 EDT] Francesca Pastrana RN [Verified on: 05/02/2020 07:05 EDT] Francesca Pastrana RN [facility] Progress Note - Nurse Dr. Burgos review s PAT information and testing results. Request copy of the stress test and last cardiology office notes. Call made to [facility], spoke with Annemarie at [facility]. Requested above information. Release of information faxed for records request. [Electronically Signed on: 05/01/2020 09:47 EDT] Maritza Teresa RN [Verified on: 05/01/2020 09:47 EDT] Maritza Teresa RN [facility] C MRSA Screenon 04-28-2020 C MRSA Screen Negative [facility] Comment on above: Performed By: #### 1 [id number] #### [facility] (DEFAULT) [address] [place] [address] Provider Orderson 04-28-2020 Provider Orders [id number] .[id number] [facility] .Auto Diff 1on 04-27-2020 Auto Wake % 9 % Normal 12 [facility] Comment on above: Performed By: #### 7 [id number], [id number], [id number] #### [facility] (DEFAULT) [address] [place] [address] 45476 Baso Abs# 0.0 x10 Normal 0.0-0.2 [facility] Comment on above: Performed By: #### 7 [id number], [id number], [id number] #### [facility] (DEFAULT) [address] [place] [address] 82168 Basophils/100 WBC (Bld) 0.4 % Normal 0.2-2.0 [facility] Comment on above: Performed By: #### 7 [id number], [id number], [id number] #### [facility] (DEFAULT) [address] [place] [address] 82484 Eos Abs# 0.1 x10 Normal 0.0-0.4 [facility] Comment on above: Performed By: #### 7 [id number], [id number], [id number] #### [facility] (DEFAULT) [address] [place] [address] 57249 Eosinophils/100 WBC (Bld) 1.7 % Normal 0.9-4.0 [facility] Comment on above: Performed By: #### 7 [id number], [id number], [id number] #### [facility] (DEFAULT) [address] [place] [address] 84209 Lymphocytes (Bld) [#/Vol] 1.6 x10 Normal 1.3-2.9 [facility] Comment on above: Performed By: #### 7 [id number], [id number], [id number] #### [facility] (DEFAULT) [address] [place] [address] Lymphocytes/100 WBC (Bld) 20 % Normal 14-48 [facility] Comment on above: Performed By: #### 7 [id number], [id number], [id number] #### [facility] (DEFAULT) [address] [place] [address] Wake Abs# 0.7 x10 Normal 0.0-0.8 [facility] Comment on above: Performed By: #### 7 [id number], [id number], [id number] #### [facility] (DEFAULT) [address] [place] [address] Neut Abs# 5.2 x10 Normal 1.5-9.2 [facility] Comment on above: Performed By: #### 7 473566, [id number], [id number] #### [facility] (DEFAULT) [address] [place] [address] Neutrophils/100 WBC (Bld) 69 % Normal 44-88 [facility] Comment on above: Performed By: #### 7 619634, [id number], [id number] #### [facility] (DEFAULT) [address] [place] [address] Standardon 04-27-2020 eGFR Non AA >60 [facility] Comment on above: Performed By: #### 7 338965, [id number], [id number] #### [facility] (DEFAULT) [address] [place] [address] eGFR AA >60 [facility] Comment on above: Result Comment: President & Ceo ramin Kidney disease could be indicated at eGFRs of less than 60 ml/min/1.73m2. Kidney Failure is indicated at less than 15 ml/min/1.73m2 Performed By: #### 7 [id number], [id number], [id number] #### [facility] (DEFAULT) [address] [place] [address] Anion gap [Moles/Vol] 12.0 mmol/L Normal 5.0-19.0 [facility] Comment on above: Performed By: #### 7 595901, [id number], [id number] #### [facility] (DEFAULT) [address] [place] [address] 40581 Calcium [Mass/Vol] 9.7 mg/dL Normal 8.9-10.3 [facility] Comment on above: Performed By: #### 7 806824, [id number], [id number] #### [facility] (DEFAULT) [address] [place] [address] 17287 Chloride [Moles/Vol] 106 mmol/L Normal 101-111 [facility] Comment on above: Performed By: #### 7 016668, [id number], [id number] #### [facility] (DEFAULT) [address] [place] [address] 40736 CO2 [Moles/Vol] 23 mmol/L Normal 21-32 [facility] Comment on above: Performed By: #### 7 518739, [id number], [id number] #### [facility] (DEFAULT) [address] [place] [address] 70122 Creatinine [Mass/Vol] 0.72 mg/dL Low 0.90-1.30 [facility] Comment on above: Performed By: #### 7 339888, [id number], [id number] #### [facility] (DEFAULT) [address] [place] [address] 60807 Glucose [Mass/Vol] 85.0 mg/dL Normal 74.0-118.0 [facility] Comment on above: Performed By: #### 7 238075, [id number], [id number] #### [facility] (DEFAULT) [address] [place] [address] 20311 Osmolality [Osmolality] 274 mOsm/L [facility] Comment on above: Performed By: #### 7 452383, [id number], [id number] #### [facility] (DEFAULT) [address] [place] [address] 82624 Potassium [Moles/Vol] 4.4 mmol/L Normal 3.6-5.1 [facility] Comment on above: Performed By: #### 7 974578, [id number], [id number] #### [facility] (DEFAULT) [address] [place] [address] Sodium [Moles/Vol] 137.0 mmol/L Normal 136.0-144.0 [facility] Comment on above: Performed By: #### 7 315929, [id number], [id number] #### [facility] (DEFAULT) [address] [place] [address] 04813 Urea nitrogen [Mass/Vol] 16 mg/dL Normal 8-26 [facility] Comment on above: Performed By: #### 7 871672, [id number], [id number] #### [facility] (DEFAULT) [address] [place] [address] Urea nitrogen/Creatinine [Mass ratio] 22.0 mg/mg High 4.6-16.2 [facility] Comment on above: Performed By: #### 7 623273, [id number], [id number] #### [facility] (DEFAULT) [address] [place] [address] 45006 CBC w/ Auto Diffon 0 Erythrocyte distribution width (RBC) [Ratio] 12.2 % Normal 11.5-15.0 [facility] Comment on above: Performed By: #### 7 849405, 45738127, [id number] #### [facility] (DEFAULT) [address] [place] [address] 83124 Hematocrit (Bld) [Volume fraction] 38.9 % Normal 34.8-51.9 [facility] Comment on above: Performed By: #### 7 122502, [id number], [id number] #### [facility] (DEFAULT) [address] [place] [address] Hemoglobin (Bld) [Mass/Vol] 13.5 g/dL Normal 11.8-17.7 [facility] Comment on above: Performed By: #### 7 410048, [id number], [id number] #### [facility] (DEFAULT) [address] [place] [address] Man Diff? Auto Normal [facility] Comment on above: Performed By: #### 7 390501, [id number], [id number] #### [facility] (DEFAULT) [address] [place] [address] 62597 MCH (RBC) [Entitic mass] 32 pg Normal 24-34 [facility] Comment on above: Performed By: #### 7 368436, [id number], [id number] #### [facility] (DEFAULT) [address] [place] [address] 02443 MCHC (RBC) [Mass/Vol] 35 g/dL Normal 26-37 [facility] Comment on above: Performed By: #### 7 992398, [id number], [id number] #### [facility] (DEFAULT) [address] [place] [address] 00322 MCV (RBC) [Entitic vol] 91 fL Normal 81-100 [facility] Comment on above: Performed By: #### 7 951115, 37951050, [id number] #### [facility] (DEFAULT) [address] [place] [address] 12494 Platelet mean volume (Bld) [Entitic vol] 9.3 fL Normal 6.3-10.2 [facility] Comment on above: Performed By: #### 7 613088, 52700501, [id number] #### [facility] (DEFAULT) [address] [place] [address] 25789 Platelets (Bld) [#/Vol] 220 x10 Normal 138-427 [facility] Comment on above: Performed By: #### 7 186253, [id number], [id number] #### [facility] (DEFAULT) [address] [place] [address] 76394 RBC (Bld) [#/Vol] 4.26 x10 Normal 3.70-5.30 [facility] Comment on above: Performed By: #### 7 831400, [id number], [id number] #### [facility] (DEFAULT) [address] [place] [address] 48398 WBC (Bld) [#/Vol] 7.6 x10 Normal 3.5-10.5 [facility] Comment on above: Performed By: #### 7 791692, [id number], [id number] #### [facility] (DEFAULT) [address] [place] [address] Provider Orderson 04-27-2020 Provider Orders [id number] .[id number] [facility] UA w Culture if Ind Standard on 04-27-2020 Breakpoint UA [facility] Comment on above: Performed By: #### 1 [id number] #### [facility] (DEFAULT) [address] [place] [address] Color (U) Yellow [facility] Comment on above: Performed By: #### 1 [id number] #### [facility] (DEFAULT) [address] [place] [address] Culture? No [facility] Comment on above: Performed By: #### 1 [id number] #### [facility] (DEFAULT) [address] [place] [address] Glucose (U) [Mass/Vol] Negative [facility] Comment on above: Performed By: #### 1 [id number] #### [facility] (DEFAULT) [address] [place] [address] 58573 Ketones Ql (U) Negative [facility] Comment on above: Performed By: #### 1 [id number] #### [facility] (DEFAULT) [address] [place] [address] Micro? Not Indicated [facility] Comment on above: Performed By: #### 1 [id number] #### [facility] (DEFAULT) [address] [place] [address] 97923 UA Bilirubin Negative [facility] Comment on above: Performed By: #### 1 [id number] #### [facility] (DEFAULT) [address] [place] [address] 14851 UA Blood Negative Normal [facility] Comment on above: Performed By: #### 1 [id number] #### [facility] (DEFAULT) [address] [place] [address] UA Clarity CLEAR Normal CLEAR [facility] Comment on above: Performed By: #### 1 [id number] #### [facility] (DEFAULT) [address] [place] [address] 33459 UA Leuk Est Negative Normal NEGATIVE [facility] Comment on above: Performed By: #### 1 [id number] #### [facility] (DEFAULT) [address] [place] [address] UA Nitrite Negative Normal NEGATIVE [facility] Comment on above: Performed By: #### 1 [id number] #### [facility] (DEFAULT) [address] [place] [address] 07447 UA pH 6.5 Normal 5-8 [facility] Comment on above: Performed By: #### 1 [id number] #### [facility] (DEFAULT) [address] [place] [address] UA Protein Negative Normal NEGATIVE [facility] Comment on above: Performed By: #### 1 [id number] #### [facility] (DEFAULT) [address] [place] [address] UA Spec Grav <=1.005 Normal 1.001-1.035 [facility] Comment on above: Performed By: #### 1 [id number] #### [facility] (DEFAULT) [address] [place] [address] UA Urobilinogen 0.2 mg/dL Normal 0.2-1.0 [facility] Comment on above: Performed By: #### 1 [id number] #### [facility] (DEFAULT) [address] [place] [address] Urine Source Clean Catch Normal [facility] Comment on above: Performed By: #### 1 [id number] #### [facility] (DEFAULT) [address] [place] [address] Vital Signs Date Time Vital Sign Value Performing Clinician Don carrera 02-18-2024 13:41-0400 Blood Pressure Location Haroon DON [facility] 02-18-2024 13:41-0400 Diastolic blood pressure 86 mm[Hg] Haroon NILL [facility] 02-18-2024 13:41-0400 Heart rate 76 /min Haroon NILL [facility] 02-18-2024 13:41-0400 Respiratory rate 16 /min Haroon NILL [facility] 02-18-2024 13:41-0400 Systolic blood pressure 126 mm[Hg] Haroon NILL [facility] Encounters Encounter Date Encounter Type Care Provider Facility Start: 10-18-2024 End: 10-18-2024 ambulatory BRYCE VARNERRAY [facility] Start: 03-02-2024 End: 03-03-2024 ambulatory Haroon R NILL Facility: [facility] Start: 03-02-2024 End: 03-02-2024 Patient encounter procedure Haroon R NILL Janelle [facility] Start: 03-02-2024 End: 03-02-2024 ambulatory Haroon R Nill Facility:[facility] Start: 02-18-2024 End: 02-19-2024 ambulatory Haroon R NILL Facility: [facility] Start: 02-18-2024 End: 02-18-2024 Patient encounter procedure Haroon R NILL [facility] Start: 03-19-2023 End: 03-19-[address] DAKSHA OREILLY . Facility:[facility] Start: 03-18-2023 End: 03-19-[address] DAKSHA OREILLY . Facility:[facility] Start: 03-18-2023 End: 03-19-2023 ambulatory AMBER KIRBY Facility:[facility] Start: 08-16-2022 End: 08-17-[address] BRYCE HUERTA Facility:[facility] Start: 06-29-[address] BRYCE HUERTA Fac ility:[facility] Procedures Date Procedure Procedure Detail Performing Clinician Start: 03-18-2023 PSA screening AMBER ARGUELLES Comment on above: Performed By: #### C MP, CK, LIPID #### [facility] [address] [address] [address] Tyrell Casillas Start: 11-03-2019 Repair of joint of r ight hip Haroon NILL Start: 11-03-2005 Coronary artery bypa ss grafts x 4 Haroon NILL Start: 11-03-2003 Repair of joint of l eft hip Haroon NILL Arthroscopy of knee Haroon NILL Colonoscopy Haroon NILL Insertion of inferio r vena caval filter Haroon NILL Laminectomy Haroon NILL Lysis of adhesions Haroon N ILL Repair of recurrent incisional hernia Haroon NILL Repair of ventral hernia Godfrey hael NILL Comment on above: x 3 Immunizations Immunization Date Immunization Notes Care Provider Fa [facility] 10-01-2023 influenza virus vaccine, unspecified formulation Haroon NILL [facility] 02-27-2021 SARS-CoV-2 (COVID-19 ) mRNA BNT-162b2 vax Haroon NILL [facility] 02-06-2021 SARS-CoV-2 (COVID-19 ) mRNA BNT-162b2 vax Haroon NILL [facility] Payers Date Payer Category Payer Self-pay 1957 Unknown [id number] 1950 Unknown [id number] 2.16.84 [id number] 1950 Unknown [id number] 2.16.84 [id number] 1950 Unknown [id number] 2.16.84 [id number] 1950 Unknown [id number] 2.16.84 [id number] 1950 Unknown [id number] 2.16.84 [id number] 1950 Unknown [id number] 2.16.8 [id number] 1950 Unknown [id number] 2.16.8 [id number] Unknown [id number] 2.16.8 [id number] Social History Date Type Detail Facility Start: 02-18-2024 Tobacco smoking status Never s moked tobacco (finding) [facility] Tobacco smoking status Never [facility] [place] Sex Assigned At Male [facility] Functional Status Date Assessment Result Facility 02-18-2024 Functional Status N/A [facility] Progress note 10-18-2024 Note Date & Type Note Facility 10-18-2024 Note [place] Cardiology - [facility] Subjective Gretchen Delatorre is a 73 y.o. year old male patient being seen for 1 year follow up CAD, hypertension, and ischemic cardiomyopathy. Had labs last week. He's doing very well. Denies chest pain, SOB, palpitations, and lightheadedness/syncope. Patient Active Problem List Diagnosis Acute myocardial infarction of inferior wall (CMS/HCC) Cardiomyopathy (CMS/HCC) Hyperlipidemia Old myocardial infarction Visual field defect Coronary artery disease involving [place] coronary artery of [place] heart without angina pectoris History of coronary [...] use: Yes Comment: MODERATE Drug use: Never HPI Ronald is seen in follow-up. He is [...] PMH- CAD s/p CABG, HTN, HPL, Cardiomyopathy, PA in 1996 PSH- CABG x4 2005, Rt [...] 1 tablet every day by oral route., Di (more content not included)... [facility] Clinical Note 02-18-2024 Note Date & [...] Illness 73 yo male with h/o CAD, PA, htn, hyperlipidemia, CVA, degenerative disc disease, lumbar, [...] SARS-CoV-2 (COVID-19) mRNA BNT-162b2 vax 02/06/2021 Recorded [facility] Comment on above: Result Comment: Elec tronically Signed By: Haroon DON MD\.br\Date and Time Signed: 02/18/24 15:21 EDT Evaluation + Plan note Note Date & Type Note Facility Evaluation + Plan note Future Appointments Appointment Date:03/02/2024 03:00:00 PM Scheduled Provider:Haroon DON MD Location:[facility] Appointment Type: Procedure 30 [facility] Hospital course Narrative Note Date & Type Note Facility Hospital course Narrative No data available for this section [facility] Discharge instructions Note Date & Type Note Facility Hospital Discharge instructions No data available for this section [facility] Progress note Note Date & Type Note Facility Progress note No data available for this section [facility] Summary Purpose Family History No Family History [...] Advanced Directives Records Found Hospital Course Note [facility] Clinical Discharge Summary PERSON INFORMATION Name GRETCHEN DELATORRE Age 69 Years 1950 Sex MALE Language Amharic PCP DAKSHA OREILLY Marital Status Med Service Observation Acct# Arrival 05/15/2020 06:07:00 Visit Reason RIGHT TOTAL HIP Acuity LOS Address: [address] [facility] [address] Comment: PROVIDER INFORMATION VITALS INFORMATION Vital Sign [...] section and content) DATE CREATED AUTHOR 07/26/2020 [facility] DATE CREATED AUTHOR AUTHOR'S ORGANIZ ATION 03/20/2023 [facility] DATE CREATED AUTHOR AUTHOR'S ORGANIZ ATION 03/05/2024 [facility] DATE CREATED AUTHOR AUTHOR'S ORGANIZ ATION 03/06/2024 [facility] DATE CREATED AUTHOR AUTHOR'S ORGANIZ ATION 10/19/2024 [facility] Patient Care team informatio n (unrecognized section and content) Personnel Name: Daksha Oreilly MD Address: Address: [address] [place] [address] Personnel Name: Daksha Oreilly MD Address: Address: [address] [place] [address] FOR RECORDS PERTAINING TO PATIENTS WHO ARE [...] BE BASED ON THE PRIMARY CLINICAL RECORDS. [employer] provides no warranty or guarantee of the accuracy or completeness of information in this document.
--- NOTE | 2024-10-29 14:33 | CT_ITS ---
[address] [address] Patient Name: GRETCHEN DELATORRE MRN: [id number] date: 1950 Sex: M Assigned Patient Location: CT Current Patient Location: Accession/Order Number: [id number] Exam Date: 10/29/2024 14:45 Report Date: 11/01/2024 14:05 At the request of: DAKSHA DOLL Procedure: CT forearm LT wo con EXAMINATION: CT forearm LT wo con HISTORY: Cellulitis COMPARISON: No relevant comparison available. TECHNIQUE: Multi-planar CT images were created without and/or with IV contrast according to examination type. Dose reduction techniques were achieved by using automated exposure control and/or adjustment of mA and/or kV according to patient size and/or use of iterative reconstruction technique. FINDINGS: BONES: Mild degenerative joint disease. SOFT TISSUES: Prominent subcutaneous edema/inflammatory changes of the posterior proximal mid forearm and posterior to the elbow. No radiopaque foreign body. No fluid collection or free air. EFFUSION: None visible. OTHER: Negative. CT/CT forearm LT wo con IMPRESSION: 1. Prominent subcutaneous swelling/inflammatory changes posterior to the elbow extending through mid forearm of uncertain etiology. Possible cellulitis. No foreign body or free air. Electronically authenticated by: CONSTANCE CALDWELL Date: 11/01/2024 14:05
== END 2024-10-29 14:28 | disposition home or self-care (01) ==
LOC: CT 14:27
PROVIDERS: PCP Family Medicine; Visit Provider Family Medicine
DX: I42.7 Cardiomyopathy due to drug and external agent (principal); L03.90 Cellulitis, unspecified; M25.422 Effusion, left elbow
CPT/HCPCS: 73200

== ENCOUNTER 2024-12-17 09:48 | Outpatient (OUT) | payer MEDICARE, SELFPAY ==
--- OUTSIDE RECORDS SUMMARY | 2024-12-17 09:56 | XMS_ITS | CCD ---
Author Organization [facility] CliniSytx Care Team Providers Care Elevator Service Technician Name Role Phone AMBER KIRBY Admitting Unavailable [...] black walnut pollen extract Drug Allergy [facility] Repository (1 source) Hmg-Coa Reductase Inhibitors (Statins); Translations: [statins] Propensity to adverse reactions (disorder) [facility] Repository (1 source) No Known Medication Allergies; Translations: [No Known Medication Allergies] Propensity to adverse reactions (disorder) [facility] Repository Medications Current Medications Medication Drug [...] disease (7 sources) Atherosclerotic heart disease of [place] coronary artery without angina pectoris; Translations: [Coronary [...] Range Facility Office Visiton 10-18-2024 Follow-up visit [id number] Gretchen Delatorre 1950 M Date Provider Department Center 10/18/2024 BRYCE MACHADO [facility] Aime [facility] Family History Family history unknown: Yes Level of Service:09876 [place] OFFICE/OUTPATIENT ESTABLISHED LOW MDM 20 MIN Normal [facility] Pathology Noteon 03-05-2024 Pathology Note [id number]#1 .00TIFF Normal [facility] Ambulatory Visit Summaryon 0 03-02-2024 Ambulatory [...] for choosing us for your care. Gui [facility] General Surgery Office/Clini c Noteon 03-02-2024 [...] mRNA BNT-162b2 vax 02/06/2021 Recorded Normal [facility] Comment on above: Result Comment: Elec tronically Signed By: ARIAN JAIME, Haroon Newberrybr\Date and Time Signed: 03/02/24 15:16 EDT Gold 03-02-2024 L Specimen: [id number] Received: 03/03/24 Status: MICHELLE Simmonssusan Num: [id number] Spec Type: Surgical Subm Dr: Haroon Don MD FACS Tissues: A Skin-Other than Cyst, tag, debridement or plastic repair (RT CHEST WALL) Procedures: HE/4, Gross/Micro L4 Age/ Patient Sex Location Account Attending Physician Gretchen Delatorre 73/M LABELL [id number] Haroon Don MD FACS SPEC NUM: [id number] RECD: 03/03/24 STATUS: MICHELLE SANTANA NUM: [id number] PIYUSH: 03/02/24- SUBM DR: Haroon Don MD FACS ENTERED: 03/03/24 [facility] DR: Ava Salomon SPEC TYPE: Surgical DEPT: [...] skin tag over several years CPT Codes 16283 -------- -------- Specimen: [id number] Received: 03/03/24 Status: MICHELLE Santana Num: [id number] Spec Type: Surgical Subm Dr: Haroon Don MD FACS Tissues: A Skin-Other than Cyst, tag, debridement or plastic repair (RT CHEST WALL) Procedures: /Lelo, Gross/Micro L4 -------- Patient: Gretchen Delatorre [id number] (Continued) -------- Signed (signature on file) Misael Erazo MD 03/04/241432 Normal [facility] Ambulatory Visit Summaryon 0 02-18-2024 [...] JAIME, Haroon Ellison Where: General Surgery Arian/Callie [facility] Facesheeton 02-18-2024 Facesheet [id number]# 1.00TIFF Normal [facility] Physician Referralon 024 Physician Referral [id number]#1 .00TIFF Normal [facility] Physician Referralon 024 Physician Referral [id number]#1 .00TIFF Normal [facility] OCC BLD IMMUNO SCREENon 03-03 OCCULT BLOOD Positive Abnormal NEGATIVE [facility] Comment on above: Performed By: #### C MP, CK, LIPID #### [facility] [address] [address] [address] Tyrell Casillas CBC AUTO DIFFon 03-18-2023 BASO # 0.0 103/ul Normal 0.0-0.1 [facility] Comment on above: Performed By: #### C BC #### [facility] [address] [place] [address] Dr. Tyrell Casillas Basophils/100 WBC (Bld) 0.5 % Normal 0.2-2.0 [facility] Comment on above: Performed By: #### C BC #### [facility] [address] [place] [address] Dr. Tyrell Casillas EO # 0.2 103/ul Normal 0.0-0.7 [facility] Comment on above: Performed By: #### C BC #### [facility] [address] [place] [address] Dr. Tyrell Casillas Eosinophils/100 WBC (Bld) 2.6 % Normal 0.9-7.0 [facility] Comment on above: Performed By: #### C BC #### [facility] [address] [place] [address] Dr. Tyrell Casillas Erythrocyte distribution width (RBC) [Ratio] 11.7 % Normal 11.0-15.0 [facility] Comment on above: Performed By: #### C BC #### [facility] [address] [place] [address] Dr. Tyrell Casillas Hematocrit (Bld) [Volume fraction] 39.9 % Critically low 42.0-54.0 [facility] Comment on above: Performed By: #### C BC #### [facility] [address] [place] [address] Dr. Tyrell Casillas Hemoglobin (Bld) [Mass/Vol] 13.9 g/dL Critically low 14.0-18.0 [facility] Comment on above: Performed By: #### C BC #### [facility] [address] [place] [address] Dr. Tyrell Casillas IG # 0.02 10e3/ul Normal 0.00-0.03 [facility] Comment on above: Performed By: #### C BC #### [facility] [address] [place] [address] Dr. Tyrell Casillas IG % 0.3 % Normal 0.0-0.5 [facility] Comment on above: Performed By: #### C BC #### [facility] [address] [place] [address] Dr. Tyrell Casillas LYMPH # 1.7 103/ul Normal 1.2-3.8 [facility] Comment on above: Performed By: #### C BC #### [facility] [address] [place] [address] Dr. Tyrell Casillas Lymphocytes/100 WBC (Bld) 28.1 % Normal 20.5-60.0 [facility] Comment on above: Performed By: #### C BC #### [facility] [address] [place] [address] Dr. Tyrell Casillas MANUAL DIFF REQ NO Normal [facility] Comment on above: Performed By: #### C BC #### [facility] [address] [place] [address] Dr. Tyrell Casillas MCH (RBC) [Entitic mass] 32.3 pg Normal 25.9-34.0 [facility] Comment on above: Performed By: #### C BC #### [facility] [address] [place] [address] Dr. Tyrell Casillas MCHC (RBC) [Mass/Vol] 34.8 g/dL Normal 29.9-35.2 [facility] Comment on above: Performed By: #### C BC #### [facility] [address] [place] [address] Dr. Tyrell Casillas MCV (RBC) [Entitic vol] 92.8 fL Normal 80.0-94.0 [facility] Comment on above: Performed By: #### C BC #### [facility] [address] [place] [address] Dr. Tyrell Casillas MONO # 0.5 103/ul Normal 0.3-0.8 [facility] Comment on above: Performed By: #### C BC #### [facility] [address] [place] [address] Dr. Tyrell Casillas Monocytes/100 WBC (Bld) 8.5 % Normal 1.7-12.0 [facility] Comment on above: Performed By: #### C BC #### [facility] [address] [address] [address] Tyrell Casillas NEUT # 3.5 103/ul Normal 1.4-6.5 [facility] Comment on above: Performed By: #### C BC #### [facility] [address] [place] [address] Dr. Tyrell Casillas Neutrophils/100 WBC (Bld) 60.0 % Normal 43.0-75.0 [facility] Comment on above: Performed By: #### C BC #### [facility] [address] [place] [address] Dr. Tyrell Casillas Platelet mean volume (Bld) [Entitic vol] 8.3 fL Critically low 9.5-13.5 [facility] Comment on above: Performed By: #### C BC #### [facility] [address] [place] [address] Dr. Tyrell Casillas PLT 200 103/ul Normal 150-450 [facility] Comment on above: Performed By: #### C BC #### [facility] [address] [place] [address] Dr. Tyrell Casillas RBC 4.30 106/ul Critically low 4.70-6.10 [facility] Comment on above: Performed By: #### C BC #### [facility] [address] [place] [address] Dr. Tyrell Casillas WBC 5.9 103/ul Normal 4.0-11.0 [facility] Comment on above: Performed By: #### C BC #### [facility] [address] [address] [address] Tyrell Casillas CPKon 03-18-2023 CK [Catalytic activity/Vol] 505 U/L Critically high 39-308 [facility] Comment on above: Performed By: #### C K #### [facility] [address] [place] [address] Dr. Tyrell Casillas FREE T3on 03-18-2023 FREE T3 2.98 pg/mlL Normal 2.18-3.98 [facility] Comment on above: Performed By: #### T 4, CMP, TSH, FT3, LIPID #### [facility] [address] [address] [address] Tyrell Casillas GLYCOHEMOGLOBIN A1Con 2022 ADA RECOMMENDATION SEE BELOW Normal [facility] Comment on above: Result Comment: ADA RECOMMENDED LIMIT 4.0 - 6.0 ADA THERAPEUTIC TARGET < 7.0 ACTION SUGGESTED > 7.0 Performed By: #### C MP, CK, LIPID #### [facility] [address] [address] [address] Tyrell Casillas Glucose [Mass/Vol] 131 mg/dL Normal [facility] Comment on above: Performed By: #### C MP, CK, LIPID #### [facility] [address] [address] [address] Tyrell Casillas HbA1c (Bld) [Mass fraction] 6.2 % Normal 4.5-6.2 [facility] Comment on above: Performed By: #### C MP, CK, LIPID #### [facility] [address] [place] [address] Dr. Tyrell Casillas LIPID PROFILEon 03-18-2023 CHOL-HDL RATIO NORM SEE BELOW Normal [facility] Comment on above: Result Comment: 3.3 - 4.4 LOW RISK 4.4 - 7.1 AVERAGE RISK 7.1 - 11.0 MODERATE RISK >11.0 HIGH RISK Performed By: #### T 4, CMP, TSH, FT3, LIPID #### [facility] [address] [address] [address] Tyrell Casillas Cholesterol [Mass/Vol] 150 mg/dL Normal <=200 [facility] Comment on above: Performed By: #### T 4, CMP, TSH, FT3, LIPID #### [facility] [address] [address] [address] Tyrell Casillas Cholesterol in HDL [Mass/Vol] 42 mg/dL Normal 40-60 [facility] Comment on above: Performed By: #### T 4, CMP, TSH, FT3, LIPID #### [facility] [address] [address] [address] Tyrell Casillas Cholesterol in LDL [Mass/Vol] 84.2 mg/dL Normal [facility] Comment on above: Performed By: #### T 4, CMP, TSH, FT3, LIPID #### [facility] [address] [address] [address] Tyrell Casillas Cholesterol.total/Cho lesterol in HDL [Mass ratio] 3.6 {ratio} Normal [facility] Comment on above: Performed By: #### T 4, CMP, TSH, FT3, LIPID #### [facility] [address] [address] [address] Tyrell Casillas HDL NORMAL > or = 60 mg/dl - LO W CARDIOVASCULAR RISK <40 mg/dl - HIGH CARDIOVASCULAR RISK Normal [facility] Comment on above: Performed By: #### T 4, CMP, TSH, FT3, LIPID #### [facility] [address] [place] [address] Dr. Tyrell Casillas LDL CALC NORMAL SEE BELOW Normal [facility] Comment on above: Result Comment: <100 mg/dl OPTIMAL 100 - 129 mg/dl NEAR OR ABOVE OPTIMAL 130 - 159 mg/dl BORDERLINE HIGH 160 - 189 mg/dl HIGH >190 mg/dl VERY HIGH Performed By: #### T 4, CMP, TSH, FT3, LIPID #### [facility] [address] [place] [address] Dr. Tyrell Casillas Triglyceride [Mass/Vol] 119 mg/dL Normal <=150 [facility] Comment on above: Performed By: #### T 4, CMP, TSH, FT3, LIPID #### [facility] [address] [address] [address] Tyrell Casillas VLDL CALC 23.8 mg/dL Normal [facility] Comment on above: Performed By: #### T 4, CMP, TSH, FT3, LIPID #### [facility] [address] [address] [address] Tyrell Casillas PROF 14(COMP METB)on 023 Albumin [Mass/Vol] 4.5 g/dL Normal 3.4-5.0 [facility] Comment on above: Performed By: #### T 4, CMP, TSH, FT3, LIPID #### [facility] [address] [place], [place] [id number] Dr. Tyrell Casillas Albumin/Globulin [Mass ratio] 1.1 {ratio} Normal [facility] Comment on above: Performed By: #### T 4, CMP, TSH, FT3, LIPID #### [facility] [address] [place] [address] Dr. Tyrell Casillas ALP [Catalytic activity/Vol] 57 U/L Normal 46-116 [facility] Comment on above: Performed By: #### T 4, CMP, TSH, FT3, LIPID #### [facility] [address] [place] [address] Dr. Tyrell Casillas ALT [Catalytic activity/Vol] 49 U/L Normal 16-63 [facility] Comment on above: Performed By: #### T 4, CMP, TSH, FT3, LIPID #### [facility] [address] [place] [address] Dr. Tyrell Casillas Anion gap [Moles/Vol] 12.7 mmol/L Normal [facility] Comment on above: Performed By: #### T 4, CMP, TSH, FT3, LIPID #### [facility] [address] [place] [address] Dr. Tyrell Casillas AST [Catalytic activity/Vol] 35 U/L Normal 15-37 [facility] Comment on above: Performed By: #### T 4, CMP, TSH, FT3, LIPID #### [facility] [address] [place] [address] Dr. Tyrell Casillas Bilirubin [Mass/Vol] 0.4 mg/dL Normal 0.2-1.0 [facility] Comment on above: Performed By: #### T 4, CMP, TSH, FT3, LIPID #### [facility] [address] [place] [address] Dr. Tyrell Casillas Calcium [Mass/Vol] 9.5 mg/dL Normal 8.5-10.1 [facility] Comment on above: Performed By: #### T 4, CMP, TSH, FT3, LIPID #### [facility] [address] [place] [address] Dr. Tyrell Casillas Chloride [Moles/Vol] 106 mmol/L Normal 98-107 [facility] Comment on above: Performed By: #### T 4, CMP, TSH, FT3, LIPID #### [facility] [address] [place] [address] Dr. Tyrell Casillas CO2 [Moles/Vol] 27.4 mmol/L Normal 21.0-32.0 [facility] Comment on above: Performed By: #### T 4, CMP, TSH, FT3, LIPID #### [facility] [address] [place] [address] Dr. Tyrell Casillas Creatinine [Mass/Vol] 0.96 mg/dL Normal 0.70-1.30 [facility] Comment on above: Performed By: #### T 4, CMP, TSH, FT3, LIPID #### [facility] [address] [place] [address] Dr. Tyrell Casillas EGFR-AF IVORIAN >60 Normal >=60 [facility] Comment on above: Performed By: #### T 4, CMP, TSH, FT3, LIPID #### [facility] [address] [place] [address] Dr. Tyrell Casillas EGFR-NON AF IVORIAN >60 Normal >=60 [facility] Comment on above: Performed By: #### T 4, CMP, TSH, FT3, LIPID #### [facility] [address] [place] [address] Dr. Tyrell Casillas Globulin (S) [Mass/Vol] 4.0 g/dL Normal [facility] Comment on above: Performed By: #### T 4, CMP, TSH, FT3, LIPID #### [facility] [address] [place] [address] Dr. Tyrell Casillas Glucose [Mass/Vol] 101 mg/dL Normal 74-106 [facility] Comment on above: Performed By: #### T 4, CMP, TSH, FT3, LIPID #### [facility] [address] [place] [address] Dr. Tyrell Casillas Potassium [Moles/Vol] 4.1 mmol/L Normal 3.5-5.1 [facility] Comment on above: Performed By: #### T 4, CMP, TSH, FT3, LIPID #### [facility] [address] [place] [address] Dr. Tyrell Casillas Protein [Mass/Vol] 8.5 g/dL Critically high 6.4-8.2 [facility] Comment on above: Performed By: #### T 4, CMP, TSH, FT3, LIPID #### [facility] [address] [place] [address] Dr. Tyrell Casillas Sodium [Moles/Vol] 142 mmol/L Normal 136-145 [facility] Comment on above: Performed By: #### T 4, CMP, TSH, FT3, LIPID #### [facility] [address] [place] [address] Dr. Tyrell Casillas Urea nitrogen [Mass/Vol] 18.0 mg/dL Normal 7.0-18.0 [facility] Comment on above: Performed By: #### T 4, CMP, TSH, FT3, LIPID #### [facility] [address] [place] [address] Dr. Tyrell Casillas Urea nitrogen/Creatinine [Mass ratio] 18.8 mg/mg Normal [facility] Comment on above: Performed By: #### T 4, CMP, TSH, FT3, LIPID #### [facility] [address] [place] [address] Dr. Tyrell Casillas T4on 03-18-2023 T4 [Mass/Vol] 5.60 ug/dL Normal 4.50-12.10 [facility] Comment on above: Performed By: #### T 4, CMP, TSH, FT3, LIPID #### [facility] [address] [place] [address] Dr. Tyrell Casillas TSHon 03-18-2023 TSH 0.892 uIU/mL Normal 0.358-3.740 [facility] Comment on above: Performed By: #### T 4, CMP, TSH, FT3, LIPID #### [facility] [address] [place] [address] Dr. Tyrell Casillas CPKon 08-16-2022 CK [Catalytic activity/Vol] 444 U/L Critically high 39-308 [facility] Comment on above: Performed By: #### C MP, CK, LIPID #### [facility] [address] [address] [address] Tyrell Casillas LIPID PROFILEon 08-16-2022 CHOL-HDL RATIO NORM SEE BELOW Normal [facility] Comment on above: Result Comment: 3.3 - 4.4 LOW RISK 4.4 - 7.1 AVERAGE RISK 7.1 - 11.0 MODERATE RISK >11.0 HIGH RISK Performed By: #### C MP, CK, LIPID #### [facility] [address] [address] [address] Tyrell Casillas Cholesterol [Mass/Vol] 132 mg/dL Normal <=200 [facility] Comment on above: Performed By: #### C MP, CK, LIPID #### [facility] [address] [address] [address] Tyrell Casillas Cholesterol in HDL [Mass/Vol] 39 mg/dL Critically low 40-60 [facility] Comment on above: Performed By: #### C MP, CK, LIPID #### [facility] [address] [address] [address] Tyrell Casillas Cholesterol in LDL [Mass/Vol] 72.8 mg/dL Normal [facility] Comment on above: Performed By: #### C MP, CK, LIPID #### [facility] [address] [address] [address] Tyrell Casillas Cholesterol.total/Cho lesterol in HDL [Mass ratio] 3.4 {ratio} Normal [facility] Comment on above: Performed By: #### C MP, CK, LIPID #### [facility] [address] [address] [address] Tyrell Casillas HDL NORMAL > or = 60 mg/dl - LO W CARDIOVASCULAR RISK <40 mg/dl - HIGH CARDIOVASCULAR RISK Normal [facility] Comment on above: Performed By: #### C MP, CK, LIPID #### [facility] [address] [address] [address] Tyrell Casillas LDL CALC NORMAL SEE BELOW Normal [facility] Comment on above: Result Comment: <100 mg/dl OPTIMAL 100 - 129 mg/dl NEAR OR ABOVE OPTIMAL 130 - 159 mg/dl BORDERLINE HIGH 160 - 189 mg/dl HIGH >190 mg/dl VERY HIGH Performed By: #### C MP, CK, LIPID #### [facility] [address] [place] [address] Dr. Tyrell Casillas Triglyceride [Mass/Vol] 101 mg/dL Normal <=150 [facility] Comment on above: Performed By: #### C MP, CK, LIPID #### [facility] [address] [place] [address] Dr. Tyrell Casillas VLDL CALC 20.2 mg/dL Normal [facility] Comment on above: Performed By: #### C MP, CK, LIPID #### [facility] [address] [place] [address] Dr. Tyrell Casillas PROF 14(COMP METB)on 022 Albumin [Mass/Vol] 4.4 g/dL Normal 3.4-5.0 [facility] Comment on above: Performed By: #### C MP, CK, LIPID #### [facility] [address] [place] [address] Dr. Tyrell Casillas Albumin/Globulin [Mass ratio] 1.3 {ratio} Normal [facility] Comment on above: Performed By: #### C MP, CK, LIPID #### [facility] [address] [place] [address] Dr. Tyrell Casillas ALP [Catalytic activity/Vol] 55 U/L Normal 46-116 [facility] Comment on above: Performed By: #### C MP, CK, LIPID #### [facility] [address] [place] [address] Dr. Tyrell Casillas ALT [Catalytic activity/Vol] 48 U/L Normal 16-63 [facility] Comment on above: Performed By: #### C MP, CK, LIPID #### [facility] [address] [place] [address] Dr. Tyrell Casillas Anion gap [Moles/Vol] 12.1 mmol/L Normal [facility] Comment on above: Performed By: #### C MP, CK, LIPID #### [facility] [address] [address] [address] Tyrell Casillas AST [Catalytic activity/Vol] 35 U/L Normal 15-37 [facility] Comment on above: Performed By: #### C MP, CK, LIPID #### [facility] [address] [address] [address] Tyrell Casillas Bilirubin [Mass/Vol] 0.4 mg/dL Normal 0.2-1.0 [facility] Comment on above: Performed By: #### C MP, CK, LIPID #### [facility] [address] [address] [address] Tyrell Casillas Calcium [Mass/Vol] 9.0 mg/dL Normal 8.5-10.1 [facility] Comment on above: Performed By: #### C MP, CK, LIPID #### [facility] [address] [place] [address] Dr. Tyrell Casillas Chloride [Moles/Vol] 106 mmol/L Normal 98-107 [facility] Comment on above: Performed By: #### C MP, CK, LIPID #### [facility] [address] [address] [address] Tyrell Casillas CO2 [Moles/Vol] 25.0 mmol/L Normal 21.0-32.0 [facility] Comment on above: Performed By: #### C MP, CK, LIPID #### [facility] [address] [place] [address] Dr. Tyrell Casillas Creatinine [Mass/Vol] 0.85 mg/dL Normal 0.70-1.30 [facility] Comment on above: Performed By: #### C MP, CK, LIPID #### [facility] [address] [place] [address] Dr. Tyrell Casillas EGFR-AF IVORIAN >60 Normal >=60 [facility] Comment on above: Performed By: #### C MP, CK, LIPID #### [facility] [address] [place] [address] Dr. Tyrell Casillas EGFR-NON AF IVORIAN >60 Normal >=60 [facility] Comment on above: Performed By: #### C MP, CK, LIPID #### [facility] [address] [address] [address] Tyrell Casillas Globulin (S) [Mass/Vol] 3.4 g/dL Normal [facility] Comment on above: Performed By: #### C MP, CK, LIPID #### [facility] [address] [address] [address] Tyrell Casillas Glucose [Mass/Vol] 106 mg/dL Normal 74-106 [facility] Comment on above: Performed By: #### C MP, CK, LIPID #### [facility] [address] [address] [address] Tyrell Casillas Potassium [Moles/Vol] 4.1 mmol/L Normal 3.5-5.1 [facility] Comment on above: Performed By: #### C MP, CK, LIPID #### [facility] [facility] [address] [address] [address] Tyrell Casillas Protein [Mass/Vol] 7.8 g/dL Normal 6.4-8.2 [facility] Comment on above: Performed By: #### C MP, CK, LIPID #### [facility] [address] [address] [address] Tyrell Casillas Sodium [Moles/Vol] 139 mmol/L Normal 136-145 [facility] Comment on above: Performed By: #### C MP, CK, LIPID #### [facility] [address] [address] [address] Tyrell Casillas Urea nitrogen [Mass/Vol] 15.0 mg/dL Normal 7.0-18.0 [facility] Comment on above: Performed By: #### C MP, CK, LIPID #### [facility] [address] [address] [address] Tyrell Casillas Urea nitrogen/Creatinine [Mass ratio] 17.6 mg/mg Normal [facility] Comment on above: Performed By: #### C MP, CK, LIPID #### [facility] [address] [address] [address] Tyrell Casillas Coding Summaryon 05-31-2020 Coding Summary CODING DATE: 05/31/2020 [facility] STATUS: Home PAYOR: Medicare MC [...] Eugenie George Date Saved: 05/31/2020 01:32 pm [facility] Provider Orderson 05-23-2020 Provider Orders [id number] Summary[facility] 05-19-2020 Coding Summary CODING DATE: 05/19/2020 [facility] STATUS: Home PAYOR: Medicare MC APC DESCRIPTION 5115 Level 5 Musculoskeletal Procedures ADMIT DX: REASON FOR VISIT DX: M16.11 Unilateral primary osteoarthritis, right hip FINAL DX: PRINCIPAL: M16.11 Unilateral primary osteoarthritis, right hip SECONDARY: I10 Essential (primary) hypertension 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), and cerebral infarction without residual deficits PYMT PROC APC STAT DESCRIPTION DOCTOR NAME DATE 78788 5115 J1 Arthroplasty, acetabular Quirino, Bairon And [...] Kee Revised Date Saved: 05/18/2020 12:22 pm [facility] Consent Formson 05-18-2020 Consent Forms [id number] .00OT[facility] Medication Managementon 05-03 Medication Management [id number] [facility] Outside Recordson 05-18-2020 Outside Records [id number] .[facility] Provider Orderson 05-18-2020 Provider Orders [id number] .[facility] Telemetry Stripson 0 Telemetry Strips [id number] .[facility] .Auto Diff 1on 05-17-2020 Auto Graham % 7 % Normal 11-14 [facility] Comment on above: Performed By: #### 7 048090, 34137781, [id number] #### [facility] (DEFAULT) [address] [place] [address] 10230 Baso Abs# 0.0 x10 Normal 0.0-0.2 [facility] Comment on above: Performed By: #### 7 425952, 24021495, [id number] #### [facility] (DEFAULT) [address] [place] [address] 12918 Basophils/100 WBC (Bld) 0.2 % Normal 0.2-2.0 [facility] Comment on above: Performed By: #### 7 197238, 26995289, [id number] #### [facility] (DEFAULT) [address] [place] [address] 64831 Eos Abs# 0.1 x10 Normal 0.0-0.4 [facility] Comment on above: Performed By: #### 7 119426, 79707411, [id number] #### [facility] (DEFAULT) [address] [place] [address] 65284 Eosinophils/100 WBC (Bld) 1.5 % Normal 0.9-4.0 [facility] Comment on above: Performed By: #### 7 774205, 01597039, [id number] #### [facility] (DEFAULT) [address] [place] [address] 44782 Lymphocytes (Bld) [#/Vol] 1.3 x10 Normal 1.3-2.9 [facility] Comment on above: Performed By: #### 7 450013, 75922923, [id number] #### [facility] (DEFAULT) [address] [place] [address] Lymphocytes/100 WBC (Bld) 15 % Normal 14-48 [facility] Comment on above: Performed By: #### 7 673673, 78120770, [id number] #### [facility] (DEFAULT) [address] [place] [address] Graham Abs# 0.6 x10 Normal 0.0-0.8 [facility] Comment on above: Performed By: #### 7 272113, 72949668, [id number] #### [facility] (DEFAULT) [address] [place] [address] Neut Abs# 6.4 x10 Normal 1.5-9.2 [facility] Comment on above: Performed By: #### 7 987650, 64113933, [id number] #### [facility] (DEFAULT) [address] [place] [address] Neutrophils/100 WBC (Bld) 76 % Normal 44-88 [facility] Comment on above: Performed By: #### 7 634749, 37418667, [id number] #### [facility] (DEFAULT) [address] [place] [address] CBC w/ Auto Diffon 0 Erythrocyte distribution width (RBC) [Ratio] 11.9 % Normal 11.5-15.0 [facility] Comment on above: Performed By: #### 7 997254, 70428744, [id number] #### [facility] (DEFAULT) [address] [place] [address] Hematocrit (Bld) [Volume fraction] 26.9 % Low 34.8-51.9 [facility] Comment on above: Performed By: #### 7 004548, 24543793, [id number] #### [facility] (DEFAULT) [address] [place] [address] Hemoglobin (Bld) [Mass/Vol] 9.2 g/dL Low 11.8-17.7 [facility] Comment on above: Performed By: #### 7 265190, 58506833, [id number] #### [facility] (DEFAULT) [address] [place] [address] 37229 Man Diff? Auto Normal [facility] Comment on above: Performed By: #### 7 865523, 50372838, [id number] #### [facility] (DEFAULT) [address] [place] [address] 46726 MCH (RBC) [Entitic mass] 32 pg Normal 24-34 [facility] Comment on above: Performed By: #### 7 790931, 60920316, [id number] #### [facility] (DEFAULT) [address] [place] [address] 12364 MCHC (RBC) [Mass/Vol] 34 g/dL Normal 26-37 [facility] Comment on above: Performed By: #### 7 764529, 22417557, [id number] #### [facility] (DEFAULT) [address] [place] [address] 71371 MCV (RBC) [Entitic vol] 94 fL Normal 81-100 [facility] Comment on above: Performed By: #### 7 979267, 60405778, [id number] #### [facility] (DEFAULT) [address] [place] [address] 54373 Platelet mean volume (Bld) [Entitic vol] 9.4 fL Normal 6.3-10.2 [facility] Comment on above: Performed By: #### 7 861958, 21675340, [id number] #### [facility] (DEFAULT) [address] [place] [address] 95913 Platelets (Bld) [#/Vol] 203 x10 Normal 138-427 [facility] Comment on above: Performed By: #### 7 627290, 50935209, [id number] #### [facility] (DEFAULT) [address] [place] [address] 90491 RBC (Bld) [#/Vol] 2.87 x10 Low 3.70-5.[address] [facility] Comment on above: Performed By: #### 7 386694, 62520824, [id number] #### [facility] (DEFAULT) [address] [place] [address] WBC (Bld) [#/Vol] 8.5 x10 Normal 3.5-10.[address] [facility] Comment on above: Performed By: #### 7 848961, 62852715, [id number] #### [facility] (DEFAULT) [address] [place] [address] Education Noteon 05-17-2020 Education Note Education Materials [...] done to rule of a DVT. Normal [facility] Extra [facility] 05-17-2020 Tube Collected Yes [facility] Comment on above: Performed By: #### 7 811261, 79769074, [id number] #### [facility] (DEFAULT) [address] [place] [address] 91143 Inpatient Patient Summaryon 05-17-2020 Inpatient Patient Summary [address] [address] Patient Discharge Instructions Name: GRETCHEN DELATORRE : 1950 Patient Address: [address] [place] [address] [address] [address] Primary Care Provider: Name: DAKSHA OREILLY After you are discharged if you find you have any questions, please, call [phone] ext [phone] to speak to a nurse. Discharge Diagnosis: Primary osteoarthritis of right hip Prescription Information: If you have been given a prescription for narcotics, seek immediate medical attention if you have any difficulty breathing or any sudden status changes such as confusion and sleepiness. If you or anyone you know is experiencing suicidal thoughts, mental health, alcohol and/or drug addiction problems; contact the [facility] 26/05 Crisis Hotline -Text 4HOPE to 882617. If you received any narcotics, sedation, or [...] business decisions or sign any legal documents [facility] would like to thank you for allowing us to assist you with your healthcare needs. The following includes patient education materials and information regarding your injury/illness. GRETCHEN DELATORRE has been given the following list of follow-up instructions, prescriptions, and patient education materials: Follow-up Instructions With: Address: When: Bairon Win [address] [place] [address] [address] [place] [address] Business (2) 05/25/2020 2:00 PM With: Address: When: DAKSHA SHARMILA [address] [place] [address] [place] [address] Business (1) Medications During the [...] for Disease Control and Prevention July 2014 [facility] Nutrition Noteon 05-17-2020 Nutrition Note Pt eating well avg 70-100% of meals and taking supplements as ordered. No new wts. Labs reviewed, post op anemia noted. No new rec'd at this time. Will continue to follow. [facility] Pharmacy Noteon 05-17-2020 Pharmacy Note I [...] [Verified on: 05/17/2020 08:32 EDT] Ethel Echavarria [facility] Progress Note - Nurseon - Progress [...] on: 05/17/2020 17:30 EDT] Patricia Bustillos RN [facility] Progress Note-Physicianon Progress Note-Physician DATE OF [...] Win's office. Bert Aguila DO JOB #: [id number] bk [Electronically Signed on: 05/18/2020 11:35 EDT] BERT AGUILA DO [Verified on: 05/18/2020 11:35 EDT] BERT AGUILA DO [Transcribed on: 05/17/2020 14:48 EDT] GDU Normal [facility] .Auto Diff on 05-16-2020 Auto Graham % 9 % Normal 1-12 [facility] Comment on above: Performed By: #### 7 345269, 43155749, [id number] #### [facility] (DEFAULT) [address] [place] [address] 71638 Baso Abs# 0.0 x10 Normal 0.0-0.2 [facility] Comment on above: Performed By: #### 7 672596, 10228259, [id number] #### [facility] (DEFAULT) [address] [place] [address] 70700 Basophils/100 WBC (Bld) 0.1 % Low 0.2-2.0 [facility] Comment on above: Performed By: #### 7 661326, 96392773, [id number] #### [facility] (DEFAULT) [address] [place] [address] 80267 Eos Abs# 0.0 x10 Normal 0.0-0.4 [facility] Comment on above: Performed By: #### 7 206323, 31045638, [id number] #### [facility] (DEFAULT) [address] [place] [address] 35685 Eosinophils/100 WBC (Bld) 0.2 % Low 0.9-4.0 [facility] Comment on above: Performed By: #### 7 733283, 29527725, [id number] #### [facility] (DEFAULT) [address] [place] [address] 59705 Lymphocytes (Bld) [#/Vol] 1.8 x10 Normal 1.3-2.9 [facility] Comment on above: Performed By: #### 7 745609, 31486911, [id number] #### [facility] (DEFAULT) [address] [place] [address] 07585 Lymphocytes/100 WBC (Bld) 14 % Normal 14-48 [facility] Comment on above: Performed By: #### 7 476895, 34174290, [id number] #### [facility] (DEFAULT) [address] [place] [address] 73970 Graham Abs# 1.1 x10 High 0.0-0.8 [facility] Comment on above: Performed By: #### 7 341490, 43156616, [id number] #### [facility] (DEFAULT) [address] [place] [address] Neut Abs# 9.9 x10 High 1.5-9.2 [facility] Comment on above: Performed By: #### 7 357395, 93610903, [id number] #### [facility] (DEFAULT) [address] [place] [address] Neutrophils/100 WBC (Bld) 77 % Normal 44-88 [facility] Comment on above: Performed By: #### 7 350881, 68433507, [id number] #### [facility] (DEFAULT) [address] [place] [address] CBC w/ Auto Diffon 0 Erythrocyte distribution width (RBC) [Ratio] 12.1 % Normal 11.5-15.0 [facility] Comment on above: Performed By: #### 7 492433, 79173642, [id number] #### [facility] (DEFAULT) [address] [place] [address] Hematocrit (Bld) [Volume fraction] 30.8 % Low 34.8-51.9 [facility] Comment on above: Performed By: #### 7 837278, 79820744, [id number] #### [facility] (DEFAULT) [address] [place] [address] Hemoglobin (Bld) [Mass/Vol] 10.5 g/dL Low 11.8-17.7 [facility] Comment on above: Performed By: #### 7 321598, 40525058, [id number] #### [facility] (DEFAULT) [address] [place] [address] Man Diff? Auto Normal [facility] Comment on above: Performed By: #### 7 331863, 84468751, [id number] #### [facility] (DEFAULT) [address] [place] [address] MCH (RBC) [Entitic mass] 32 pg Normal 24-34 [facility] Comment on above: Performed By: #### 7 955908, 50262734, [id number] #### [facility] (DEFAULT) [address] [place] [address] 70532 MCHC (RBC) [Mass/Vol] 34 g/dL Normal 26-37 [facility] Comment on above: Performed By: #### 7 187588, 62804941, [id number] #### [facility] (DEFAULT) [address] [place] [address] 50042 MCV (RBC) [Entitic vol] 93 fL Normal 81-100 [facility] Comment on above: Performed By: #### 7 909584, 66418447, [id number] #### [facility] (DEFAULT) [address] [place] [address] 29876 Platelet mean volume (Bld) [Entitic vol] 9.2 fL Normal 6.3-10.2 [facility] Comment on above: Performed By: #### 7 230277, 93923042, [id number] #### [facility] (DEFAULT) [address] [place] [address] 57163 Platelets (Bld) [#/Vol] 238 x10 Normal 138-427 [facility] Comment on above: Performed By: #### 7 029732, 75825977, [id number] #### [facility] (DEFAULT) [address] [place] [address] 24027 RBC (Bld) [#/Vol] 3.31 x10 Low 3.70-5.[address] [facility] Comment on above: Performed By: #### 7 172123, 15679912, [id number] #### [facility] (DEFAULT) [address] [place] [address] 20385 WBC (Bld) [#/Vol] 12.9 x10 High 3.5-10.[address] [facility] Comment on above: Performed By: #### 7 255192, 48054771, [id number] #### [facility] (DEFAULT) [address] [place] [address] Progress Note-Physicianon Progress Note-Physician DATE OF POSTOPERATIVE [...] PROGNOSIS: Good. Bert Aguila DO JOB #: [id number] bk [Electronically Signed on: 05/17/2020 11:24 EDT] BERT AGUILA DO [Verified on: 05/17/2020 11:24 EDT] RENAE BERT DO [Transcribed on: 05/16/2020 13:06 EDT] GDU Normal [facility] .Auto Diff 1on 05-15-2020 Auto Graham % 1 % Normal 1-12 [facility] Comment on above: Performed By: #### 7 176494, 35921652, [id number] #### [facility] (DEFAULT) [address] [place] [address] 07557 Baso Abs# 0.0 x10 Normal 0.0-0.2 [facility] Comment on above: Performed By: #### 7 859825, 69557177, [id number] #### [facility] (DEFAULT) [address] [place] [address] 68811 Basophils/100 WBC (Bld) 0.1 % Low 0.2-2.0 [facility] Comment on above: Performed By: #### 7 800766, 58806389, [id number] #### [facility] (DEFAULT) [address] [place] [address] 62028 Eos Abs# 0.0 x10 Normal 0.0-0.4 [facility] Comment on above: Performed By: #### 7 444530, 20815800, [id number] #### [facility] (DEFAULT) [address] [place] [address] 24465 Eosinophils/100 WBC (Bld) 0.1 % Low 0.9-4.0 [facility] Comment on above: Performed By: #### 7 427317, 31769352, [id number] #### [facility] (DEFAULT) [address] [place] [address] 99280 Lymphocytes (Bld) [#/Vol] 0.4 x10 Low 1.3-2.9 [facility] Comment on above: Performed By: #### 7 854215, 01323802, [id number] #### [facility] (DEFAULT) [address] [place] [address] 81522 Lymphocytes/100 WBC (Bld) 4 % Low 14-48 [facility] Comment on above: Performed By: #### 7 227498, 14979375, [id number] #### [facility] (DEFAULT) [address] [place] [address] Graham Abs# 0.2 x10 Normal 0.0-0.8 [facility] Comment on above: Performed By: #### 7 598258, 86992928, [id number] #### [facility] (DEFAULT) [address] [place] [address] Neut Abs# 10.0 x10 High 1.5-9.2 [facility] Comment on above: Performed By: #### 7 835818, 05242955, [id number] #### [facility] (DEFAULT) [address] [place] [address] Neutrophils/100 WBC (Bld) 94 % High 44-88 [facility] Comment on above: Performed By: #### 7 619538, 22238809, [id number] #### [facility] (DEFAULT) [address] [place] [address] Anesthesia Noteon 05-15-2020 Anesthesia Note Patient: LA [...] AAA (abdominal aortic aneurysm) / SNOMED CT 312264011 / Confirmed CAD (coronary artery disease) / SNOMED CT 08575316 / Confirmed Myocardial infarct / SNOMED CT 07967886 / Confirmed Resolved: CVA, old, cognitive deficits / SNOMED CT 1999278160 Histories Family History: Entire family history is negative. Procedure history: AAA - Abdominal aortic aneurysm (715890995) in 2012 at 62 Years. AAA - Abdominal aortic aneurysm (135960503) in 2005 at 55 Years. quaddruple cardiac byapss in 2005 at 55 Years. back surgery in 2004 at 54 Years. knee scope in 2004 at 54 Years. Comments: 04/27/2020 14:05 Abimbola Pickering RN right Hip arthroplasty (769936908) in 2003 at 53 Years. AAA - Abdominal aortic aneurysm (496546817) in 2002 at 52 Years. Social History [...] ECG interpretation: SR, occ PVCs, NSTWA. Plan [place] [employer]#( A) physical status classification: Class III. Anesthetic Preoperative Plan Anesthesia: General. . Anesthetic plan, risks, benefits, and alternatives discussed with the patient and/or family. Patient verbalized understanding. Informed consent was given. Consent was signed by the patient. [Electronically Signed on: 05/15/2020 08:26 EDT] Tom Casiano MD [Verified on: 05/15/2020 08:26 EDT] Tom Casiano MD Normal [facility] CBC w/ Auto Diffon 0 Erythrocyte distribution width (RBC) [Ratio] 12.1 % Normal 11.5-15.0 [facility] Comment on above: Performed By: #### 7 467325, 15324798, [id number] #### [facility] (DEFAULT) [address] [place] [address] 53406 Hematocrit (Bld) [Volume fraction] 33.2 % Low 34.8-51.9 [facility] Comment on above: Performed By: #### 7 475558, 07690755, [id number] #### [facility] (DEFAULT) [address] [place] [address] 05708 Hemoglobin (Bld) [Mass/Vol] 11.5 g/dL Low 11.8-17.7 [facility] Comment on above: Performed By: #### 7 527190, 79952112, [id number] #### [facility] (DEFAULT) [address] [place] [address] Man Diff? Auto Normal [facility] Comment on above: Performed By: #### 7 641925, 26500173, [id number] #### [facility] (DEFAULT) [address] [place] [address] MCH (RBC) [Entitic mass] 32 pg Normal 24-34 [facility] Comment on above: Performed By: #### 7 584356, 54143699, [id number] #### [facility] (DEFAULT) [address] [place] [address] MCHC (RBC) [Mass/Vol] 35 g/dL Normal 26-37 [facility] Comment on above: Performed By: #### 7 518447, 64575859, [id number] #### [facility] (DEFAULT) [address] [place] [address] MCV (RBC) [Entitic vol] 92 fL Normal 81-100 [facility] Comment on above: Performed By: #### 7 108526, 36655993, [id number] #### [facility] (DEFAULT) [address] [place] [address] Platelet mean volume (Bld) [Entitic vol] 9.5 fL Normal 6.3-10.2 [facility] Comment on above: Performed By: #### 7 900275, 36823787, [id number] #### [facility] (DEFAULT) [address] [place] [address] Platelets (Bld) [#/Vol] 205 x10 Normal 138-427 [facility] Comment on above: Performed By: #### 7 639592, 58212261, [id number] #### [facility] (DEFAULT) [address] [place] [address] RBC (Bld) [#/Vol] 3.62 x10 Low 3.70-5.[address] [facility] Comment on above: Performed By: #### 7 670206, 42761811, [id number] #### [facility] (DEFAULT) [address] [place] [address] WBC (Bld) [#/Vol] 10.6 x10 High 3.5-10.[address] [facility] Comment on above: Performed By: #### 7 025380, 08340600, [id number] #### [facility] (DEFAULT) [address] [place] [address] 68901 History and Physicalon 05-15 History and Physical [id number] .00OTGTIFF Normal [facility] MAGR Intraoperative Recordon 05-15-2020 MAGR Intraoperative Record MAGR Intra-Op Record Summary Primary Physician: Bairon Win DO Finalized Date/Time: 05/15/20 17:18:47 Pt. Name: GRETCHEN DELATORRE D.O.B./Sex: 1950 MALE Med Rec #: [id number] Physician: Bairon Win DO Financial #: [id number] Pt. Type: O Room/Bed: [facility] Admit/Disch: 05/15/20 06:07:00 - Institution: Case Times MAGR Entry 1 Patient In Room Time 05/15/20 09:01:00 Out Room Time 05/15/20 11:20:00 Anesthesia Start Time 05/15/20 09:02:00 Stop Time 05/15/20 11:20:00 Surgery Start Time 05/15/20 09:31:00 Stop Time 05/15/20 11:15:00 Last Modified By: Ethel Gibson RN 05/15/20 14:15:45 Case Attendance MAGR Entry 1 Entry 2 Entry 3 Case Attendee Bairon iWn Satya S MD Sauer, Stephanie RN Andrew DO Role Performed Surgeon - Primary Anesthesiologist of Map Colorer Record Time In 05/15/20 09:01:00 05/15/20 09:01:00 05/15/20 09:01:00 Time Out 05/15/20 11:20:00 05/15/20 11:20:00 05/15/20 11:20:00 Procedure Arthroplasty Total Arthroplasty Total Arthroplasty Total Hip(Right) Hip(Right) Hip(Right) Last Modified By: Ethel Gibson RN, Stephanie RN Sauer, Stephanie RN 05/15/20 14:15:50 05/15/20 14:15:50 05/15/20 14:15:50 Entry 4 Entry 5 Entry 6 Case Attendee Megan GONSALES, Mauricio Foreman Brittany E CST [place] [employer] CONDUCTOR Role Performed Scrub Personnel Catalyst Manufacturing Operator Catalyst Manufacturing Operator Time In 05/15/20 09:01:00 05/15/20 09:01:00 05/15/20 [...] By: Pedro Fiorew DO Size 54MM 58MM Dishwasher DePuy DEPUY DEPUY Catalog # Lot Number [id number] Expiration Date 03/02/30 04/02/30 Serial Number REF [id number] REF [id number] REF [id number] Device Identifier Human Readable PAUL Machine Readable PAUL MR Class Implant Usage Data Site Hip R Hip R Hip R Quantity 1 1 1 Reason for Explant Reason Not Retained Explant Disposition Tire Vulcanizer Sterility External Indicator Result Internal Indicator Results [...] 56OD 6.5MM X 25MM KA SIZE 11 Dishwasher DEPInsightpoolUY DEPUY Catalog # Lot Number [id number] Expiration Date 12/31/24 10/02/29 07/03/24 Serial Number REF [id number] REF [id number] REF [id number] Device Identifier Human Readable PAUL Machine Readable PAUL MR Class Implant Usage Data Site Hip R Hip R Hip R Quantity 1 2 1 Reason for Explant Reason Not Retained Explant Disposition Tire Vulcanizer Sterility External Indicator Result Internal Indicator Results Outcome Met (O.30) Yes Yes Yes Last Modified By: Ethel Gibson RN, Stephanie RN Sauer, Stephanie RN 05/15/20 15:23:55 05/15/20 15:23:55 05/15/20 15:23:55 Entry 7 Procedure Arthroplasty Total Hip(Right) Implant Action Implant Description DEPUY M SPEC METAL FEMORAL HEAD Implant Information Implant/Explant 05/15/20 10:25:00 Date/Time Implanted/Explanted Bairon Win By: Pedro DO Size 036MM 10/16 TAPER Dishwasher DEPUY Catalog # Lot Number [id number] Expiration Date 07/03/24 Serial Number REF 1365-51-000 Device Identifier Human Readable PAUL Machine Readable PAUL MR Class Implant Usage Data Site Hip R Quantity 1 Reason for Explant Reason Not Retained Explant Disposition Tire Vulcanizer Sterility External Indicator Result Internal Indicator Results [...] Signed By: Ethel Gibson RN 05/15/20 17:18 [facility] MAGR PACU Recordon 0 MAGR PACU Record MAGR PACU Record Summary Primary Physician: Bairon Win DO Finalized Date/Time: 05/15/20 12:19:32 Pt. Name: GRETCHEN DELATORRE/Sex: 1950 MALE Med Rec #: [id number] Physician: Bairon Win DO Financial #: [id number] Pt. Type: D Room/Bed: 221/1 Admit/Disch: 05/15/20 06:07:00 - Institution: PACU Case Times MAGR Entry 1 In PACU I 05/15/20 11:15:00 Discharge from PACU 05/15/20 12:05:00 I Last Modified By: Francesca Pastrana RN 05/15/20 12:19:29 Finalized By: Francesca Pastrana RN Document Signatures Signed By: Francesca Pastrana RN 05/15/20 [facility]-15-2020 MAGR Preoperative Record MAGR Pre-Op Record Summary Primary Physician: Bairon Win DO Finalized Date/Time: 05/15/20 13:36:44 Pt. Name: GRETCHEN DELATORRE/Sex: 1950 MALE Med Rec #: [id number] Physician: Bairon Win DO Financial #: [id number] Pt. Type: O Room/Bed: 221/1 Admit/Disch: 05/15/20 [...] Signed By: Francesca Pastrana RN 05/15/20 13:36 [facility] Nutrition Noteon 05-15-2020 Nutrition Note Pt [...] vitamins/ minerals already in place. To follow. [facility] Operative Report - Surgeon/P venkatesh 05-15-2020 [...] impacted a 56 mm gription cup ( [employer]) this was secured with 2 6.5 mm [...] both with saline and then also diluted [place] dine mixture. The fascial planes were injected [...] on: 05/15/2020 12:17 EDT] Bairon Win DO [facility] Pharmacy Noteon 05-15-2020 Pharmacy Note I [...] [Verified on: 05/15/2020 15:26 EDT] Tahira Reyna [facility] XR Hip Complete Righton 05-03 XR [...] Javier 05/15/20 11:59 a Technologist: Poncho ARCOS [facility] ABORhon 05-14-2020 ABO and Rh group Nom (Bld) Hx Check: Not Found Anti-A: 4+ Anti-B: 0 Anti-D: 4+ DCon: NT A1: 0 B: 4+ ABORh Interp: A [facility] Comment on above: Performed By: #### 1 [id number] #### [facility] (DEFAULT) [address] [place] [address] ABORh Retypeon 05-14-2020 ABO and Rh group Nom (Bld) Ordered by Discern. Anti-A: 4+ Anti-B: 0 Anti-D: 4+ DCon: NT A1: 0 B: 4+ ABORh Retype: A [facility] Comment on above: Performed By: #### 1 [id number] #### [facility] (DEFAULT) [address] [place] [address] ABSC Gelon 05-14-2020 ABSC Gel Negative [facility] Comment on above: Performed By: #### 1 [id number] #### [facility] (DEFAULT) [address] [place] [address] Blood Bank IDon 05-14-2020 Blood Bank ID BBID: [id number] [facility] Comment on above: Performed By: #### 1 [id number] #### [facility] (DEFAULT) [address] [place] [address] 40849 H&Hon 05-14-2020 Hematocrit (Bld) [Volume fraction] 38.3 % Normal 34.8-51.9 [facility] Comment on above: Performed By: #### 1 [id number] #### [facility] (DEFAULT) [address] [place] [address] 64194 Hemoglobin (Bld) [Mass/Vol] 13.3 g/dL Normal 11.8-17.7 [facility] Comment on above: Performed By: #### 1 [id number] #### [facility] (DEFAULT) [address] [place] [address] SARS-CoV-2 (COVID-19) PCRon 05-14-2020 COVID-19 PCR Not Detected Normal Not Detected [facility] Comment on above: Performed By: #### 1 [id number] #### [facility] (DEFAULT) [address] [place] [address] 11003 Progress Note - Nurseon 05-03 Progress Note - Nurse Spoke with pt regarding arrival time of 0600 and NPO after midnight. Pt instructed he will need to be tested for COVID on Friday when he comes in for type and screen. Verbalized understanding. [Electronically Signed on: 05/12/2020 09:38 EDT] Sara Alvarez RN [Verified on: 05/12/2020 09:38 EDT] Sara Alvarez RN [facility] Coding Summaryon 05-10-2020 Coding Summary CODING DATE: 05/10/2020 [facility] STATUS: Home PAYOR: Medicare MC [...] Eugenie George Date Saved: 05/10/2020 01:27 pm [facility] Billing Authorizationson Billing Authorizations [id number] Medication Management [id number] [facility] Coding Summaryon 05-08-2020 Coding Summary CODING DATE: 05/08/2020 [facility] STATUS: Home PAYOR: Medicare MC [...] Eugenie George Date Saved: 05/08/2020 01:38 pm [facility] Progress Note - Nurseon 04-04 Progress Note - Nurse PAT review done sara villarreal Cardiac workup, no orders received. [Electronically Signed on: 05/02/2020 07:05 EDT] Francesca Pastrana RN [Verified on: 05/02/2020 07:05 EDT] Francesca Pastrana RN [facility] Progress Note - Nurse Dr. Burgos review s PAT information and testing results. Request copy of the stress test and last cardiology office notes. Call made to [facility], spoke with Annemarie at [facility]. Requested above information. Release of information faxed for records request. [Electronically Signed on: 05/01/2020 09:47 EDT] Maritza Teresa RN [Verified on: 05/01/2020 09:47 EDT] Maritza Teresa RN [facility] C MRSA Screenon 04-28-2020 C MRSA Screen Negative [facility] Comment on above: Performed By: #### 1 [id number] #### [facility] (DEFAULT) [address] [place] [address] Provider Orderson 04-28-2020 Provider Orders [id number] .00OTGTIFF [facility] .Auto Diff 1on 04-27-2020 Auto Graham % 9 % Normal 12 [facility] Comment on above: Performed By: #### 7 [id number], [id number], [id number] #### [facility] (DEFAULT) [address] [place] [address] 30370 Baso Abs# 0.0 x10 Normal 0.0-0.2 [facility] Comment on above: Performed By: #### 7 [id number], [id number], [id number] #### [facility] (DEFAULT) [address] [place] [address] 56360 Basophils/100 WBC (Bld) 0.4 % Normal 0.2-2.0 [facility] Comment on above: Performed By: #### 7 [id number], [id number], [id number] #### [facility] (DEFAULT) [address] [place] [address] 75812 Eos Abs# 0.1 x10 Normal 0.0-0.4 [facility] Comment on above: Performed By: #### 7 394609, [id number], [id number] #### [facility] (DEFAULT) [address] [place] [address] 00550 Eosinophils/100 WBC (Bld) 1.7 % Normal 0.9-4.0 [facility] Comment on above: Performed By: #### 7 [id number], [id number], [id number] #### [facility] (DEFAULT) [address] [place] [address] 57341 Lymphocytes (Bld) [#/Vol] 1.6 x10 Normal 1.3-2.9 [facility] Comment on above: Performed By: #### 7 [id number], [id number], [id number] #### [facility] (DEFAULT) [address] [place] [address] Lymphocytes/100 WBC (Bld) 20 % Normal 14-48 [facility] Comment on above: Performed By: #### 7 [id number], [id number], [id number] #### [facility] (DEFAULT) [address] [place] [address] Graham Abs# 0.7 x10 Normal 0.0-0.8 [facility] Comment on above: Performed By: #### 7 [id number], [id number], [id number] #### [facility] (DEFAULT) [address] [place] [address] Neut Abs# 5.2 x10 Normal 1.5-9.2 [facility] Comment on above: Performed By: #### 7 [id number], [id number], [id number] #### [facility] (DEFAULT) [address] [place] [address] Neutrophils/100 WBC (Bld) 69 % Normal 44-88 [facility] Comment on above: Performed By: #### 7 857500, [id number], [id number] #### [facility] (DEFAULT) [address] [place] [address] Standardon 04-27-2020 eGFR Non AA >60 [facility] Comment on above: Performed By: #### 7 [id number], [id number], [id number] #### [facility] (DEFAULT) [address] [place] [address] eGFR AA >60 [facility] Comment on above: Result Comment: Assistant Professor Of Education ramin Kidney disease could be indicated at eGFRs of less than 60 ml/min/1.73m2. Kidney Failure is indicated at less than 15 ml/min/1.73m2 Performed By: #### 7 005559, [id number], [id number] #### [facility] (DEFAULT) [address] [place] [address] Anion gap [Moles/Vol] 12.0 mmol/L Normal 5.0-19.0 [facility] Comment on above: Performed By: #### 7 309941, [id number], [id number] #### [facility] (DEFAULT) [address] [place] [address] 59474 Calcium [Mass/Vol] 9.7 mg/dL Normal 8.9-10.3 [facility] Comment on above: Performed By: #### 7 821384, [id number], [id number] #### [facility] (DEFAULT) [address] [place] [address] 10040 Chloride [Moles/Vol] 106 mmol/L Normal 101-111 [facility] Comment on above: Performed By: #### 7 038164, [id number], [id number] #### [facility] (DEFAULT) [address] [place] [address] 91229 CO2 [Moles/Vol] 23 mmol/L Normal 21-32 [facility] Comment on above: Performed By: #### 7 078507, [id number], [id number] #### [facility] (DEFAULT) [address] [place] [address] 97477 Creatinine [Mass/Vol] 0.72 mg/dL Low 0.90-1.30 [facility] Comment on above: Performed By: #### 7 470219, [id number], [id number] #### [facility] (DEFAULT) [address] [place] [address] 03460 Glucose [Mass/Vol] 85.0 mg/dL Normal 74.0-118.0 [facility] Comment on above: Performed By: #### 7 332958, [id number], [id number] #### [facility] (DEFAULT) [address] [place] [address] 47751 Osmolality [Osmolality] 274 mOsm/L [facility] Comment on above: Performed By: #### 7 608428, [id number], [id number] #### [facility] (DEFAULT) [address] [place] [address] 98124 Potassium [Moles/Vol] 4.4 mmol/L Normal 3.6-5.1 [facility] Comment on above: Performed By: #### 7 299071, [id number], [id number] #### [facility] (DEFAULT) [address] [place] [address] Sodium [Moles/Vol] 137.0 mmol/L Normal 136.0-144.0 [facility] Comment on above: Performed By: #### 7 644534, [id number], [id number] #### [facility] (DEFAULT) [address] [place] [address] 95380 Urea nitrogen [Mass/Vol] 16 mg/dL Normal 8-26 [facility] Comment on above: Performed By: #### 7 490296, [id number], [id number] #### [facility] (DEFAULT) [address] [place] [address] Urea nitrogen/Creatinine [Mass ratio] 22.0 mg/mg High 4.6-16.2 [facility] Comment on above: Performed By: #### 7 569608, [id number], [id number] #### [facility] (DEFAULT) [address] [place] [address] 33282 CBC w/ Auto Diffon 0 Erythrocyte distribution width (RBC) [Ratio] 12.2 % Normal 11.5-15.0 [facility] Comment on above: Performed By: #### 7 002892, [id number], [id number] #### [facility] (DEFAULT) [address] [place] [address] 53830 Hematocrit (Bld) [Volume fraction] 38.9 % Normal 34.8-51.9 [facility] Comment on above: Performed By: #### 7 254013, [id number], [id number] #### [facility] (DEFAULT) [address] [place] [address] Hemoglobin (Bld) [Mass/Vol] 13.5 g/dL Normal 11.8-17.7 [facility] Comment on above: Performed By: #### 7 430062, [id number], [id number] #### [facility] (DEFAULT) [address] [place] [address] Man Diff? Auto Normal [facility] Comment on above: Performed By: #### 7 812654, [id number], [id number] #### [facility] (DEFAULT) [address] [place] [address] 07465 MCH (RBC) [Entitic mass] 32 pg Normal 24-34 [facility] Comment on above: Performed By: #### 7 194449, [id number], [id number] #### [facility] (DEFAULT) [address] [place] [address] 40535 MCHC (RBC) [Mass/Vol] 35 g/dL Normal 26-37 [facility] Comment on above: Performed By: #### 7 024067, [id number], [id number] #### [facility] (DEFAULT) [address] [place] [address] 19593 MCV (RBC) [Entitic vol] 91 fL Normal 81-100 [facility] Comment on above: Performed By: #### 7 914805, [id number], [id number] #### [facility] (DEFAULT) [address] [place] [address] 78220 Platelet mean volume (Bld) [Entitic vol] 9.3 fL Normal 6.3-10.2 [facility] Comment on above: Performed By: #### 7 245742, [id number], [id number] #### [facility] (DEFAULT) [address] [place] [address] 37824 Platelets (Bld) [#/Vol] 220 x10 Normal 138-427 [facility] Comment on above: Performed By: #### 7 508275, 35796642, [id number] #### [facility] (DEFAULT) [address] [place] [address] 83929 RBC (Bld) [#/Vol] 4.26 x10 Normal 3.70-5.[address] [facility] Comment on above: Performed By: #### 7 624577, 83721301, [id number] #### [facility] (DEFAULT) [address] [place] [address] 24204 WBC (Bld) [#/Vol] 7.6 x10 Normal 3.5-10.[address] [facility] Comment on above: Performed By: #### 7 613056, [id number], [id number] #### [facility] (DEFAULT) [address] [place] [address] Provider Orderson 04-27-2020 Provider Orders [id number] [facility] UA w Culture if Ind Standard on 04-27-2020 Breakpoint UA [facility] Comment on above: Performed By: #### 1 [id number] #### [facility] (DEFAULT) [address] [place] [address] Color (U) Yellow [facility] Comment on above: Performed By: #### 1 [id number] #### [facility] (DEFAULT) [address] [place] [address] Culture? No [facility] Comment on above: Performed By: #### 1 [id number] #### [facility] (DEFAULT) [address] [place] [address] Glucose (U) [Mass/Vol] Negative [facility] Comment on above: Performed By: #### 1 [id number] #### [facility] (DEFAULT) [address] [place] [address] 59808 Ketones Ql (U) Negative [facility] Comment on above: Performed By: #### 1 [id number] #### [facility] (DEFAULT) [address] [place] [address] Micro? Not Indicated [facility] Comment on above: Performed By: #### 1 [id number] #### [facility] (DEFAULT) [address] [place] [address] 24377 UA Bilirubin Negative [facility] Comment on above: Performed By: #### 1 [id number] #### [facility] (DEFAULT) [address] [place] [address] 28039 UA Blood Negative Normal [facility] Comment on above: Performed By: #### 1 [id number] #### [facility] (DEFAULT) [address] [place] [address] UA Clarity CLEAR Normal CLEAR [facility] Comment on above: Performed By: #### 1 [id number] #### [facility] (DEFAULT) [address] [place] [address] 55256 UA Leuk Est Negative Normal NEGATIVE [facility] Comment on above: Performed By: #### 1 [id number] #### [facility] (DEFAULT) [address] [place] [address] UA Nitrite Negative Normal NEGATIVE [facility] Comment on above: Performed By: #### 1 [id number] #### [facility] (DEFAULT) [address] [place] [address] 89633 UA pH 6.5 Normal 5-8 [facility] Comment on above: Performed By: #### 1 [id number] #### [facility] (DEFAULT) [address] [place] [address] UA Protein Negative Normal NEGATIVE [facility] Comment on above: Performed By: #### 1 [id number] #### [facility] (DEFAULT) [address] [place] [address] UA Spec Grav <=1.005 Normal 1.001-1.035 [facility] Comment on above: Performed By: #### 1 [id number] #### [facility] (DEFAULT) [address] [place] [address] UA Urobilinogen 0.2 mg/dL Normal 0.2-1.0 [facility] Comment on above: Performed By: #### 1 [id number] #### [facility] (DEFAULT) [address] [place] [address] Urine Source Clean Catch Normal [facility] Comment on above: Performed By: #### 1 [id number] #### [facility] (DEFAULT) [address] [place] [address] Vital Signs Date Time Vital Sign Value Performing Clinician Don carrera 02-18-2024 13:41-0400 Blood Pressure Location Haroon DON [facility] 02-18-2024 13:41-0400 Diastolic blood pressure 86 mm[Hg] Haroon NILL [facility] 02-18-2024 13:41-0400 Heart rate 76 /min Haroon NILL [facility] 02-18-2024 13:41-0400 Respiratory rate 16 /min Haroon NILL [facility] 02-18-2024 13:41-0400 Systolic blood pressure 126 mm[Hg] Haroon NILL [facility] [place] Encounters Encounter Date Encounter Type Care Provider Facility Start: 10-18-2024 End: 10-18-2024 ambulatory BRYCE VARNERRAY [facility] Start: 03-02-2024 End: 03-03-2024 ambulatory Haroon R NILL Facility: [facility] Start: 03-02-2024 End: 03-02-2024 Patient encounter procedure Haroon R NILL Janelle [facility] Start: 03-02-2024 End: 03-02-2024 ambulatory Haroon R Nill Facility:[facility] Start: 02-18-2024 End: 02-19-2024 ambulatory Haroon R NILL Facility: [facility] Start: 02-18-2024 End: 02-18-2024 Patient encounter procedure Haroon R NILL [facility] Start: 03-19-2023 End: 03-19-[address] DAKSHA OREILLY . Facility:[facility] Start: 03-18-2023 End: 03-19-[address] DAKSAH OREILLY . Facility[facility] Start: 03-18-2023 End: 03-19-2023 ambulatory AMBER KIRBY Facility:[facility] Start: 08-16-2022 End: 08-17-[address] BRYCE HUERTA Facility:[facility] Start: 06-29-[address] BRYCE HUERTA Fac ility:[facility] Procedures Date Procedure Procedure Detail Performing Clinician Start: 03-18-2023 PSA screening AMBER ARGUELLES Comment on above: Performed By: #### C MP, CK, LIPID #### [facility] [address] [address] [address] Tyrell Casillas Start: 11-03-2019 Repair of [...] Immunization Date Immunization Notes Care Provider Fa [facility] 10-01-2023 influenza virus vaccine, unspecified formulation Haroon NILL [facility] [place] 02-27-2021 SARS-CoV-2 (COVID-19 ) mRNA BNT-162b2 vax Haroon NILL [facility] [place] 02-06-2021 SARS-CoV-2 (COVID-19 ) mRNA BNT-162b2 vax Haroon NILL [facility] [place] Payers Date Payer Category Payer Self-pay 1957 Unknown [id number] 1950 Unknown [id number] 2.16.84 [id number] 1950 Unknown [id number] 2.16.84 [id number] 1950 Unknown [id number] 2.16.84 [id number] 1950 Unknown [id number] 2.16.84 [id number] 1950 Unknown [id number] 2.16.84 [id number] 1950 Unknown [id number] 2.16.8 [id number] 1950 Unknown [id number] 2.16.8 [id number] Unknown [id number] 2.16.8 [id number] Social History Date Type Detail Facility Start: 02-18-2024 Tobacco smoking status Never s moked tobacco (finding) [facility] Tobacco smoking status Never [facility] [place] Sex Assigned At Male [facility] Functional Status Date Assessment Result Facility 02-18-2024 Functional Status N/A General Flynn [facility] Progress note 10-18-2024 Note Date & Type Note Facility 10-18-2024 Note ID Cardiology - [facility] Subjective Gretchen Delatorre is a 73 [...] Visual field defect Coronary artery disease involving [place] coronary artery of [place] [place] heart without angina pectoris History of coronary [...] oral route., Di (more content not included)... [facility] Clinical Note 02-18-2024 Note Date & [...] Illness 73 yo male with h/o CAD, VT, htn, hyperlipidemia, CVA, degenerative disc disease, lumbar, [...] SARS-CoV-2 (COVID-19) mRNA BNT-162b2 vax 02/06/2021 Recorded [facility] Comment on above: Result Comment: Elec tronically Signed By: Haroon DON MD\.br\Date and Time Signed: 02/18/24 15:21 EDT Evaluation + Plan note Note Date & Type Note Facility Evaluation + Plan note Future Appointments Appointment Date:03/02/2024 03:00:00 PM Scheduled Provider:Haroon DON MD Location:[facility] Appointment Type: Procedure 30 [facility] course Narrative Note Date & Type Note Facility Hospital course Narrative No data available for this section [facility] Discharge instructions Note Date & Type Note Facility Hospital Discharge instructions No data available for this section General [facility] Progress note Note Date & Type Note Facility Progress note No data available for this section General [facility] Summary Purpose Family History No Family History [...] Records Found Hospital Course Note [facility] Clinical Discharge Summary PERSON INFORMATION Name GRETCHEN DELATORRE Age 69 Years 1950 Sex MALE Language Kiswahili PCP DAKSHA OREILLY Marital Status Med Service Observation Acct# Arrival 05/15/2020 06:07:00 Visit Reason RIGHT TOTAL HIP Acuity LOS Address: [address] [facility] [address] Comment: PROVIDER INFORMATION VITALS INFORMATION Vital Sign [...] section and content) DATE CREATED AUTHOR 07/26/2020 [facility] DATE CREATED AUTHOR AUTHOR'S ORGANIZ ATION 03/20/2023 [facility] DATE CREATED AUTHOR AUTHOR'S ORGANIZ ATION 03/05/2024 [facility] DATE CREATED AUTHOR AUTHOR'S ORGANIZ ATION 03/06/2024 [facility] DATE CREATED AUTHOR AUTHOR'S ORGANIZ ATION 10/19/2024 [facility] Patient Care team informatio n (unrecognized section and content) Personnel Name: Daksha Oreilly MD Address: Address: [address] [place] [address] Personnel Name: Daksha Oreilly MD Address: Address: [address] [place] [address] FOR RECORDS PERTAINING TO PATIENTS WHO ARE [...] BE BASED ON THE PRIMARY CLINICAL RECORDS. [employer] provides no warranty or guarantee of the accuracy or completeness of information in this document.
[2024-12-17 10:34] LABS: Basophils Percent Auto 0.7 % (0.2-2.0); Eosinophils Absolute Auto 0.2 10^3/uL (0.0-0.7); Eosinophils Percent Auto 3.1 % (0.9-7.0); Hematocrit 33.7 % (42.0-54.0); Hemoglobin 11.6 g/dL (14.0-18.0); Immature Granulocytes Abs Auto 0.01 10^3/uL (0.00-0.03); Immature Granulocytes Pct Auto 0.2 % (0.0-0.5); Lymphocytes Absolute Auto 1.1 10^3/uL (1.2-3.8); Lymphocytes Percent Auto 20.7 % (20.5-60.0); Mean Corpuscular HGB Conc 34.4 g/dL (29.9-35.2); Mean Corpuscular Hemoglobin 33.5 pg (25.9-34.0); Mean Corpuscular Volume 97.4 fL (80.0-94.0); Mean Platelet Volume 8.4 fL (9.5-13.5); Monocytes Absolute Auto 0.5 10^3/uL (0.3-0.8); Monocytes Percent Auto 9.1 % (1.7-12.0); Neutrophils Absolute Auto 3.6 10^3/uL (1.4-6.5); Neutrophils Percent Auto 66.2 % (43.0-75.0); Platelet Count 154 10^3/uL (150-450); Red Blood Count 3.46 10^6/uL (4.70-6.10); Red Cell Distribution Width 12.2 % (11.0-15.0); White Blood Count 5.4 10^3/uL (4.0-11.0)
[2024-12-17 11:31] LABS: Alanine Aminotransferase 44 U/L (16-63); Albumin Globulin Ratio 0.8; Alkaline Phosphatase 48 U/L (46-116); Anion Gap 10.7; Aspartate Amino Transferase 30 U/L (15-37); BUN Creatinine Ratio 17.8; Bilirubin Total 0.3 mg/dL (0.2-1.0); Calcium 8.9 mg/dL (8.5-10.1); Carbon Dioxide 26.4 mmol/L (21.0-32.0); Chloride 104 mmol/L (98-107); Chol HDL Ratio 3.9; Cholesterol 157 mg/dL (<=200); Estimated GFR (African America >60 (>=60 mL/min/1.73m^2); Estimated GFR (Non-African Ame >60 (>=60 mL/min/1.73m^2); Free T3 2.86 pg/mL (2.18-3.98); Globulin 5.1 g/dL; Glucose 109 mg/dL (74-106); HDL Cholesterol 40 mg/dL (40-60); LDL Cholesterol Calculated 88.8 mg/dL; Potassium 4.1 mmol/L (3.5-5.1); Sodium 137 mmol/L (136-145); Total Protein 9.1 g/dL (6.4-8.2); Triglycerides 141 mg/dL (<=150); VLDL CHOLESTEROL 28.2 mg/dL
[2024-12-17 11:34] LABS: Estimated Average Glucose 131 mg/dL; Glycohemoglobin A1C 6.2 % (4.5-6.2)
[2024-12-17 11:43] LABS: Prostate Specific Antigen Scrn <0.13 ng/mL (<=4.00)
[2024-12-18 04:11] LABS: Insulin 16.2 uIU/mL (2.6-24.9)
== END 2024-12-17 09:49 | disposition home or self-care (01) ==
LOC: LAB 09:49
PROVIDERS: PCP Family Medicine; Visit Provider Family Medicine
DX: E78.2 Mixed hyperlipidemia (principal); I67.89 Other cerebrovascular disease; E78.5 Hyperlipidemia, unspecified; I10 Essential (primary) hypertension; M19.90 Unspecified osteoarthritis, unspecified site; R73.09 Other abnormal glucose; Z12.5 Encounter for screening for malignant neoplasm of prostate
CPT/HCPCS: 36415; 80053; 80061; 83036; 83525; 84436; 84443; 84481; 85025; G0103

== ENCOUNTER 2025-03-24 12:53 | Outpatient (OUT) | payer MEDICARE, SELFPAY ==
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
--- OUTSIDE RECORDS SUMMARY | 2024-12-17 05:54 | XMS_ITS ---
Author Organization [facility] in [place] Address [address] [place] [address] Care Team Providers Care Corporate Development Analyst Name Role Phone Yamil Oreilly Primary Care Provider REASON FOR VISIT screening psa Encounters Encounter Location Date Provider Diagnosis [facility] [address] [place] [address] 12/17/2024 Yamil Oreilly Encounter for prosta te cancer screening Z12.5 Assessments Encounter Date Diagnosis (ICD Code) Assessment Notes Treatment Notes Treatment Clinical Notes Section Notes 12/17/2024 Encounter for prostate cancer screening (ICD-10 - Z12.5) Plan Of Treatment Pending Test Test Name Order Date PSA, SCREENING 12/17/2024 Progress Notes * Arsh PARMAR ADOB:1950 (74 yo M)Acc No.[id number]:12/17/2024 Patient: Jair Arsh MOORE :1950 A ge:74 Y S ex:Male Address:[address], [place] [address] Subjective: * Chief Complaints: * S creening psa * Medical History: * Surgical History: * Hospitalization/Major Diagno stic Procedure: * Medications: Objective: * Vitals: * Physical Examination: Assessment: * Assessment: 1. E ncounter for prostate cancer screening - Z12.5 (Primary) Plan: * Treatment: * Procedure Codes: * true * Date: Generated for Printi ng/Faxing/eTransmitting on: 0 03/24/2025 12:55 PM EDT
--- OUTSIDE RECORDS SUMMARY | 2024-12-18 09:50 | XMS_ITS ---
Author Organization [facility] Address [address] [place] [address] Care Team Providers Care Ammonia Still Operator Name Role Phone Yamil Oreilly Primary Care Provider [phone] REASON FOR VISIT Lab Results Encounters Encounter Location Date Provider Diagnosis [facility] [address] [place] [address] 12/18/2024 Yamil Oreilly Plan Of Treatment No Information Progress Notes * Arsh PARMAR ADOB:1950 (74 yo M)Acc No.[id number]:12/18/2024 Patient: Jair Arsh MOORE :1950 A ge:74 Y S ex:Male Address:[address], [place] [address] * true * Date: Generated for Talati susan/Faracquelg/eTransmitting on: 0 03/24/2025 12:56 PM EDT
--- OUTSIDE RECORDS SUMMARY | 2025-03-24 12:56 | XMS_ITS | Clinical Summary ---
Author Organization [facility] Address [address] [place] [place] [address] Care Team Providers Care Rn Supplemental Name Role Phone Vik Oreilly MD Primary Care Provider [phone] Allergies No known active allergies Medications Medication Sig Dispensed Refills Start Date End Date Status aspirin 81 mg EC tablet Take 1 tablet every day by oral route. Active atenolol (Tenormin) 50 mg tablet Take 1 tablet by mouth in the morning. Active ferrous sulfate 325 (65 Fe) MG tablet Take 1 tablet every day by oral route. Active potassium gluconate 550 mg (90 mg) tablet Take 1 tablet every day by oral route. Active cholecalciferol (Vitamin D-3) 25 MCG (1000 units) tablet 1 (one) time each day at the same time. Active rosuvastatin (Crestor) 10 mg tabletIndications :Coronary artery disease involving [place] coronary artery of [place] heart without angina pectoris,Hyperlip emia, mixed Take 1 tablet (10 mg) by mouth in the morning. 90 tablet 3 04/12/2024 5 Active Additional Information Patient taking differently:10 mg oralNightly, Reported on 10/18/2024 levothyroxine (Synthroid, Levoxyl) 50 mcg tablet Take 50 mcg by mouth before breakfast. 10/13/2024 Active ezetimibe (Zetia) 10 mg tabletIndications :Acute myocardial infarction of inferior wall (CMS/HCC) Take 1 tablet (10 mg) by mouth in the morning. 90 tablet 3 12/29/2024 6 Active lisinopril 20 mg tabletIndications :Essential hypertension TAKE 1 TABLET BY MOUTH IN THE MORNING 90 tablet 3 02/24/2025 Active lisinopril 20 mg tabletIndications :Essential hypertension TAKE 1 TABLET BY MOUTH IN THE MORNING 90 tablet 1 08/30/2024 5 Discontinued Active Problems Problem Noted Date Diagnosed Date BMI 33.0-33.9,adult 10/18/2024 Morbid obesity 10/18/2024 Skin tag 10/18/2024 History of total hip replacement 05/15/2023 10/14/2023 Primary osteoarthritis of right hip 05/15/2023 10/14/2023 Spinal stenosis of lumbar region 01/30/2023 Sequelae of cerebral infarction 01/30/2023 Primary localized osteoarthritis of pelvic regio n and thigh 01/30/2023 Presence of right artificial hip joint Osteoarthritis 01/30/2023 Occult blood in stools 01/30/2023 Difficulty walking 01/30/2023 Degeneration of intervertebral disc of lumbar re gion 01/30/2023 Cerebrovascular accident (CVA) 01/30/2023 Abnormal gait 01/30/2023 Abdominal aortic aneurysm without rupture 2022 Osteoporosis 01/30/2023 Cataract 01/30/2023 Coronary artery disease invo lving [place] coronary artery of [place] heart without angina pectoris 08/19/2022 History of coronary artery bypass graft 08/19/20 Essential hypertension 08/19/2022 Cellulitis of hip, right 05/25/2020 MGUS (monoclonal gammopathy of unknown significa nce) 06/28/2013 Acute myocardial infarction of inferior wall Cardiomyopathy 05/19/2013 Hyperlipidemia 05/19/2013 Old myocardial infarction 05/19/2013 Visual field defect 05/19/2013 Encounters Date Type Department Care Team Description 02/24/2025 Refill [facility] [address] [place] [address] Nydia Nesbitt CNP Essential hypertension 12/29/2024 Refill [facility] [address] [place] [address] Pako Palacios MD Acute myocardial infarction of inferior wall (CMS/HCC) from Last 3 Months Immunizations Name Administration Dates Next Due Influenza, injectable, quadrivalent, preservativ e free 07/31/2016 Influenza, seasonal, injectable 09/07/2014 Influenza, seasonal, injecta ble, preservative free, 6 moonths & older 08/02/2015 Influenza, trivalent, adjuvanted 09/02/2019 Pneumococcal Polysaccharide PPV23 07/14/2006 Unspecified Sars-Cov-2 Vaccination 02/27/2021, Zoster, live 10/31/2016 Social History Tobacco Use Types Packs/Day Years Used Date Smoking Tobacco: Former Cigarettes Smokeless Tobacco: Never Tobacco Cessation:Counseling Given: Not Answered Alcohol Use Standard Drinks/Week Comments Yes 0 (1 standard drink = 0.6 oz pur e alcohol) MODERATE [place] Safety & Environment Answer Date Rec orded Fear of Current or Ex-Partner Not on file Emotionally Abused Not on file 12/25/2023 Physically Abused Not on file 12/25/2023 Sexually Abused Not on file 12/25/2023 Physically or Sexually Abused Not on file Sex and Gender Information Value Date Recorded Sex Assigned at Not on file Gender Identity Not on file Sexual Orientation Not on file Last Filed Vital Signs Vital Sign Reading Time Taken Comments Blood Pressure 110/64 10/18/2024 9:22 AM EST Pulse 79 10/18/2024 9:22 AM EST Temperature - - Respiratory Rate - - Oxygen Saturation 97% 10/18/2024 9:22 AM EST Inhaled Oxygen Concentration - - Weight 89.8 kg (198 lb) 10/18/2024 9:22 AM EST Height 170.2 cm (5' 7 ) 10/18/2024 9:22 AM EST Body Mass Index 31.01 10/18/2024 9:22 AM EST Plan of Treatment Health Maintenance Due Date Last Done Comments CT Colonography 1950 Colonoscopy 1950 Colorectal Cancer Screening 1950 FIT-DNA 1950 FIT 1950 FOBT 1950 Medicare Annual Wellness (AWV) 1950 Sigmoidoscopy 1950 Depression Screening 1964 Adult Tetanus 1974 Zoster Vaccines (1 of 2) 2002 10/31/2016 Pneumococcal Vaccine: 65+ Years (2 of 2 - PCV) 07/14/2007 07/14/2006 Fall Risk Screening 2017 COVID-19 Vaccine ( season) 2024 02/27/2021, 02/27/2021, 02/06/2021, Additional history exists Influenza Vaccine (Season Ended) 2025 10/01/2023, 09/02/2019, 07/31/2016, Additional history exists HIB Vaccines Aged Out No longer eligi ble based on patient's age to complete this topic HPV Vaccines Aged Out No longer eligi ble based on patient's age to complete this topic IPV Vaccines Aged Out No longer eligi ble based on patient's age to complete this topic Meningococcal B Vaccine Aged Out No l onger eligible based on patient's age to complete this topic Meningococcal Vaccine Aged Out No chilo ashanti eligible based on patient's age to complete this topic Rotavirus Vaccines Aged Out No longer eligible based on patient's age to complete this topic Care Teams Rn Supplemental Relationship Specialty Start Date End Date Vik Oreilly MD [address] [facility] [address] [address] PCP - General 07/10/22
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
--- OUTSIDE RECORDS SUMMARY | 2025-03-24 12:56 | XMS_ITS | Referral Summary ---
Author Organization [facility] Address [address] [place] [address] Care Team Providers Care Sewage Plant Supervisor Name Role Phone Vik Oreilly MD Primary Care Provider [phone] Encounters Date Type Department Care Team Description 02/24/2025 Refill [facility] [address] [place] [address] Nydia Nesbitt CNP Essential hypertension 12/29/2024 Refill [facility] [address] [place] [address] Pako Palacios MD Acute myocardial infarction of inferior wall (CMS/HCC) from Last 3 Months Allergies No known active allergies Medications Medication [...] 10 mg tabletIndications :Coronary artery disease involving [place] coronary artery of [place] heart without angina pectoris,Hyperlip emia, mixed Take 1 tablet (10 mg) by mouth in the morning. 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
--- OUTSIDE RECORDS SUMMARY | 2025-03-24 12:56 | XMS_ITS | Encounter Summary ---
Author Organization [facility] Address [address] [place] [address] Care Team Providers Care Cable Rigger Name Role Phone Vik Oreilly MD Primary Care Provider [phone] Reason for Visit * Reason Comments Med Refill Encounter Details Date Type Department Care Team ([facility] st Contact Info) Description 01/13/[address] [facility] Heart at [facility] [address] [place] [address] Pako Palacios MD [address] [facility] [place] [address] [facility] [place] [address] Acute myocardial infarction of inferior wall (CMS/HCC) Social History Tobacco Use Types Packs/Day Years Used Date Smoking Tobacco: Former Cigarettes Smokeless Tobacco: Never Alcohol Use Standard Drinks/Week Comments Yes 0 [...] on file Sexual Orientation Not on file documented as of this encounter Plan of Treatment Not on file documented as of this encounter Visit Diagnoses Diagnosis Acute myocardial infarction of inferior wall (CMS/HCC) Acute myocardial infarction of other inferior wall, episode of care unspecified documented in this encounter Care Teams Cable Rigger Relationship Specialty Start Date End Date Vik Oreilly MD [address] [facility] [address] [address] PCP - General 07/10/22 documented as of this encounter
--- OUTSIDE RECORDS SUMMARY | 2025-03-24 12:56 | XMS_ITS | Clinical Summary ---
Author Organization [facility] Address [address] [place], [place] [address] Care Team Providers Care Grievance And Appeals Coordinator Name Role Phone Vik Oreilly MD Primary Care Provider [phone] Allergies Active Allergy Reactions Criticality Noted Date Comments Tocfdut-Jba-Ncn Reductase Inhibitors Unknown 02/15/2013 Medications aspirin, enteric coated (ADULT LOW DOSE ASPIRIN) 81 mg EC tablet Take 1 tablet by mouth once daily. 0 02/15/2013 Active [place]-3 Fatty Acids (FISH OIL) 500 mg cap Take 2 capsules by mouth once daily. 0 02/15/2013 Active atenolol (TENORMIN) 50 mg tablet Take 1 tablet by mouth once daily. 0 02/15/2013 Active ibuprofen 800 mg tablet Take 1 tablet by mouth every 6 hours as needed. 0 02/15/2013 Active gemfibrozil 600 mg tablet Take 1 tablet by mouth twice daily before meals. 0 02/15/2013 Active cycloSPORINE (RESTASIS) 0.05 % ophthalmic emulsion 1 Drop twice daily. 0 02/15/2013 Active colesevelam (WELCHOL) 625 mg tablet Take 3 tablets by mouth twice daily with meals. 0 02/15/2013 Active Cod Liver Oil Oil Take by mouth once daily. Active MULTIVITAMIN (CENTRAL NORM ORAL) Take by mouth once daily. Active GLUCOSAMINE HCL/CHONDR BYERS A NA (OSTEO BI-FLEX ORAL) Take by mouth once daily. Active ascorbic acid (VITAMIN C) 500 mg tablet Take 500 mg by mouth once daily. Active Ubidecarenone-O heidy 3-Vit E (COQ-10 & FISH OIL) 50-300-30 mg-mg-unit cap Take by mouth once daily. Active VITAMIN B COMPLEX & VIT C NO.4 (SUPER B COMPLEX + C ORAL) Take by mouth once daily. Active niacin 500 mg tablet Take 500 mg by mouth daily with breakfast. Active Lysine (L-LYSINE) 500 mg cap Take by mouth once daily. Active chromium picolinate 1,000 mcg Tab Take by mouth once daily. Active rosuvastatin (CRESTOR) 5 mg tablet Take 5 mg by mouth once daily. 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 Immunizations Immunization Administration Dates Next Due pneumococcal polysaccharide (PPV23) vaccine, 23 valent (PNEUMOVAX 23) 07/14/2006 Social History Tobacco Use Types Packs/Day Years Used Date Smoking Tobacco: Never Smokeless Tobacco: Never Alcohol Use Standard Drinks/Week Comments Yes 0 (1 standard drink = 0.6 oz pur e alcohol) 6-7 per week last drink 07/12/13 Sex and Gender Information Value Date Recorded Sex Assigned at Not on file Legal Sex Male 9:19 AM EDT Gender Identity Not on file Sexual Orientation Not on file Last Filed Vital Signs Vital Sign Reading Time Taken Comments Blood Pressure 152/96 06/25/2016 10:58 AM EDT second attempt 145/90 Pulse 61 06/25/2016 10:58 AM EDT Temperature 37 C (98.6 F) 06/25/2016 10:58 AM EDT Respiratory Rate 18 06/25/2016 10:5 8 AM EDT Oxygen Saturation 97% 07/18/2013 1:3 9 PM EDT Inhaled Oxygen Concentration - - Weight 87.8 kg (193 lb 9.6 oz) 06/25/2016 10:58 AM EDT Height 167.6 cm (5' 5.98 ) 06/25/2016 1 0:58 AM EDT Body Mass Index 31.26 06/25/2016 10:58 AM EDT Plan of Treatment Health Maintenance Due Date Last Done Comments Anxiety Screening 1970 Depression Screening 1970 Hepatitis C Screening 1970 DTaP,Tdap,Td Vaccine (1 - Tdap) [address] Colonography 1997 Cologuard (FIT-DNA) 1997 Colonoscopy 1997 Colorectal Cancer Screening 1997 Fecal Occult Blood 1997 Sigmoidoscopy 1997 Shingrix Vaccine (1 of 2) 2002 Pneumococcal Vaccine: 50+ (2 of 2 - PCV) 07/14/2007 07/14/2006 Diabetes Screening 06/12/2023 06/12/2020, 0 06/05/2020, 05/27/2020, Additional history exists Covid-19 Vaccine (1 - 2023-2 5 season) 2024 Advance Directive Discussion 11/03/2024 Influenza Vaccine (Season Ended) 2025 RSV Vaccine (1 - 1-dose 75+ series) 2027 Medical Devices Implanted Type Area Guard Rail Installer Device Identifier Shelf Expiration Date Model / Serial / Lot Mesh Srg Surgipro 14x9in Armando - [id number] Implanted:Qty: 1 on 07/14/2013 at [facility] Mesh [employer] [id number] / / Procedures Procedure Name Priority Date/Time Associated Diagnosis Comments COMPREHENSIVE METABOLIC PANEL Routine 06/18/2016 11:04 AM EDT MGUS (monoclonal gammopathy of unknown significance) from Last 3 Months or Most Recently Relevant to Health Maintenance Results * (ABNORMAL) COMP METABOLIC PANEL (06/18/2016 11:04 AM EDT) Pathologist [facility] Protein, Total 7.4 6.0 - 8.4 g/dL 06/18/2016 9:48 PM EDT [facility] Albumin 4.8 3.5 - 5.0 g/dL 06/18/2016 9:48 PM EDT [facility] Calcium 9.6 8.5 - 10.5 mg/dL 06/18/2016 9:48 PM EDT [facility] Bilirubin, Total 0.5 0.0 - 1.5 mg/dL 06/18/2016 9:48 PM EDT [facility] Alkaline Phosphatase 75 40 - 150 U/L 06/18/2016 9:48 PM EDT [facility] AST 37 7 - 40 U/L 06/18/2016 9:48 PM EDT [facility] Glucose 103(H) 65 - 100 mg/dL 06/18/2016 9:48 PM EDT [facility] BUN 12 10 - 25 mg/dL 06/18/2016 9:48 PM EDT [facility] Creatinine 0.79 0.70 - 1.40 mg/dL 06/18/2016 9:48 PM EDT [facility] Sodium 138 135 - 146 mmol/L 06/18/2016 9:48 PM EDT [facility] Potassium 4.4 3.5 - 5.0 mmol/L 06/18/2016 9:48 PM EDT [facility] Chloride 101 98 - 110 mmol/L 06/18/2016 9:48 PM EDT [facility] CO2 21(L) 23 - 32 mmol/L 06/18/2016 9:48 PM EDT [facility] Anion Gap 16(H) 0 - 15 mmol/L 06/18/2016 9:48 PM EDT [facility] ALT 30 5 - 50 U/L 06/18/2016 9:48 PM EDT [facility] eGFR- >60 06/18/2016 9:48 PM EDT [facility] eGFR-All Other Races >60 . 06/18/2016 9:48 PM EDT [facility] Comment: eGFR (Estimated GFR) Units of measure: mL/min/1.73 meters squared eGFR is derived from the reexpressed MDRD Study equation using the following parameters: serum creatinine, age, gender and race. The creatinine assay has been calibrated to be traceable to IDMS. An eGFR <60 mL/min/1.73m2 for >3 months is consistent with chronic kidney disease. Refer to KDOQI guidelines for clinical interpretation. In patients with unstable renal function, e.g. those with acute kidney injury, the eGFR may not accurately reflect actual GFR. Blood specimen (specimen) BLOOD SPECIMEN / Unknown 06/18/2016 11:04 AM EDT 06/18/2016 8:29 PM EDT [facility] Final Result [facility] [address] [place] [address] from Last 3 Months or Most Recently Relevant to Health Maintenance Care Teams Grievance And Appeals Coordinator Relationship Specialty Start Date End Date Vik Oreilly MD PCP - General Family Medicine 02/10/13
--- OUTSIDE RECORDS SUMMARY | 2025-03-24 12:56 | XMS_ITS | Encounter Summary ---
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
--- OUTSIDE RECORDS SUMMARY | 2025-03-24 12:56 | XMS_ITS | Clinical Summary ---
Author Organization [facility] Address [address] [place] [address] Care Team Providers Care Electronics Processor Name Role Phone Vik Oreilly MD Primary Care Provider [phone] Allergies Active Allergy Reactions Criticality Noted Date Comments Statins Unknown Medium 05/16/2023 Medications Turmeric Curcumin 500 MG capsule as directed Orally Active Potassium Gluconate 550 MG tablet 1 (one) time each day at the same time. Active magnesium 250 MG tablet 1 (one) time each day at the same time. Active L-lysine 1000 MG tablet as directed Orally Active lisinopril 10 MG tablet 1 (one) time each day at the same time. Active ezetimibe (Zetia) 10 MG tablet 1 (one) time each day at the same time. Active cholecalciferol (Vitamin D3) 25 MCG (1000 UT) tablet 1 (one) time each day at the same time. Active atenolol (Tenormin) 50 MG tablet 1 (one) time each day at the same time. Active aspirin 81 MG EC tablet as directed Orally Active Ascorbic Acid (Vitamin C) 500 MG capsule as directed Orally Active B Complex Vitamins (VITAMIN B COMPLEX PO) Vitamin B Complex Active beta carotene (vitamin A) 7.5 MG (26347 UT) capsule Vitamin A Active rosuvastatin (Crestor) 10 MG tablet 1 capsule 1 (one) time each day at the same time. Active Misc Natural Products (OSTEO BI-FLEX JOINT SHIELD PO) Osteo Bi-Flex Joint Shield Active Multiple Vitamins-Minera ls (CENTRUM ADULT PO) as directed Orally Active ferrous sulfate 325 (65 Fe) MG tablet Take 1 tablet by mouth in the morning. Active niacin 500 MG tablet Take 500 mg by mouth in the morning. Take with meals. Active Chromium Picolinate 1000 MCG tablet Take by mouth Daily. Active Active Problems Problem Noted Date Diagnosed Date Abdominal aortic aneurysm (AAA) without rupture 05/15/2023 Coronary artery disease 05/15/2023 History of total hip replacement 05/15/2023 Other sequelae of cerebral infarction 05/15/2023 Primary osteoarthritis of right hip 05/15/2023 Immunizations Immunization Administration Dates Next Due Influenza, trivalent, adjuvanted 09/02/2019 Social History Tobacco Use Types Packs/Day Years Used Date Smoking Tobacco: Never Smokeless Tobacco: Never Tobacco Cessation:Counseling Given: Not Answered Alcohol Use Standard Drinks/Week Comments Yes 1 (1 standard drink = 0.6 oz pur e alcohol) Sex and Gender Information Value Date Recorded Sex Assigned at Male 05/09/2023 11:31 AM EDT Legal Sex Male 10:09 PM EDT Gender Identity Male 05/09/2023 11:31 AM EDT Sexual Orientation Not on file Last Filed Vital Signs Vital Sign Reading Time Taken Comments Blood Pressure - - Pulse - - Temperature - - Respiratory Rate - - Oxygen Saturation - - Inhaled Oxygen Concentration - - Weight 86.2 kg (190 lb) 05/16/2023 11:22 AM EDT Height 167.6 cm (5' 6 ) 05/16/2023 11:22 AM EDT Body Mass Index 30.67 05/16/2023 11:22 AM EDT Plan of Treatment Health Maintenance Due Date Last Done Comments CT Colonography 1952 Colonoscopy 1952 Colorectal Cancer Screening 1952 FIT-DNA 1952 FIT 1952 FOBT 1950 Sigmoidoscopy 1950 Pneumococcal Vaccine: 65+ Ye ars (2 of 2 - PCV) 07/14/2007 07/14/2006 Influenza Vaccine (Season Ended) 2025 10/01/2023, 09/02/2019, 07/31/2016, Additional history exists Insurance [employer] Care Teams Electronics Processor Relationship Specialty Start Date End Date Vik Oreilly MD PCP - General Family Medicine 05/14/23
--- NOTE | 2025-03-24 13:00 | CA_ITS ---
Patient Name: GRETCHEN DELATORRE MR#: [id number] : 1950 Exam Date: 03/24/2025 Ordering Doctor: DR BRYCE HUERTA M.D. ECHOCARDIOGRAM REPORT PROCEDURE: CA ECHO DOPPLER COMPLETE INDICATIONS: Coronary artery disease, h/o CABG, h/o MD COMPARISON: None. DESCRIPTION: COMPLETE ECHOCARDIOGRAM Real-time transthoracic echocardiography with 2D, M-mode, spectral and color flow Doppler performed. QUALITY: Technical quality was good. LEFT VENTRICLE: Normal chamber size. Mild concentric left ventricular hypertrophy. Calculated left ventricular ejection fraction is 57%. LV EF: Global left ventricular systolic function is normal; visually estimated ejection fraction is 55%. No obvious wall motion abnormalities. DIASTOLIC: Unable to assess diastolic function. ATRIAL SEPTUM: Visually appears intact. LEFT ATRIUM: Severe dilatation. RIGHT ATRIUM: Mild dilatation. RIGHT VENTRICLE: Normal chamber size. Decreased right ventricular systolic function. TRICUSPID VALVE: Normal mobility and thickness. No stenosis with no regurgitation. Unable to calculate right ventricular systolic pressure due to lack of measurable tricuspid regurgitation. MITRAL VALVE: Normal mobility and thickness. No evidence of mitral valve stenosis. There is no mitral annular calcification. Mild mitral regurgitation. AORTIC VALVE: Normal trileaflet appearance. Mildly calcified aortic valve. Normal leaflet mobility. No evidence of aortic valve stenosis. Trivial aortic regurgitation. AORTIC ROOT: Normal diameter and appearance. PULMONIC VALVE: Normal thickness and mobility. No stenosis. Mild to moderate regurgitation. PERICARDIUM: No evidence of pericardial effusion. IVC: Collapses with inspirations. CONCLUSION: 1. Global left ventricular systolic function is normal; visually estimated ejection fraction is 55% 2. The right ventricle is normal in size with reduced systolic function 3. Mild left ventricular hypertrophy 4. Biatrial dilatation 5. Unable to calculate right ventricular systolic pressure due to lack of measurable tricuspid regurgitation 6. Mild mitral regurgitation 7. Mild to moderate pulmonic regurgitation Adult Echocardiography Procedure Report Left Ventricle LVEDD (3.7 - 5.6 cm): 5.13 cm LVESD (2.2 - 4.0 cm): 4.00 cm LVIVS thickness (0.6 - 1.2 cm): 1.21 cm LVPW thickness (0.5 - 1.0 cm): 1.16 cm e': 0.12 m/s E - e': 6.26 LVOT Max Gradient: 3.89 mm[Hg] LVOT Area (cm2): 0.99 m/s Peak Velocity (LVOT): 0.99 m/s Mean Velocity (LVOT): 0.75 m/s LVOT Diameter 2.11 cm Left Atrium LA Volume Index (2D A2C): 46.50 ml/m2 Left Atrium Systolic Dimension: 4.72 cm Mitral Valve MV E to A Ratio: 0.93 Mitral Valve A-Wave Peak Velocity: 0.80 m/s Mitral Valve E-Wave Peak Velocity: 0.74 m/s Right Ventricle Aorta AO Root Diam: 3.57 cm Aortic Valve AoV Area (Peak Lorenzo): 2.15 cm2, 2.15 cm2 AoV Area (VTI): 2.31 cm2, 2.31 cm2 Peak Velocity(Antegrade Flow): 1.61 m/s Peak Gradient(Antegrade Flow): 10.34 mm[Hg] Mean Velocity(Antegrade Flow): 1.19 m/s Mean Gradient(Antegrade Flow): 6.23 mm[Hg] Velocity Time Integral: 36.09 cm Tricuspid Valve Pulmonic Valve Mean Gradient: 4.69 mm[Hg] Mean Velocity: 0.98 m/s Peak Velocity: 1.66 m/s, 1.23 m/s Peak Gradient: 6.08 mm[Hg], 10.98 mm[Hg] Right Atrium Right Atrium Systolic Pressure: 57.91 ml, 57.91 ml Dictated by: Maisha Iglesias M.D. on 03/24/2025 at 15:16 Approved by: Maisha Iglesias M.D. on 03/24/2025 at 15:21
== END 2025-03-24 12:54 | disposition home or self-care (01) ==
LOC: CARD 12:54
PROVIDERS: PCP Family Medicine; Visit Provider Internal Medicine Interventional Cardiology
DX: I25.10 Atherosclerotic heart disease of native coronary artery without angina pectoris (principal); Z95.1 Presence of aortocoronary bypass graft; I25.2 Old myocardial infarction
CPT/HCPCS: 93306

== ENCOUNTER 2025-09-03 12:18 | Outpatient (OUT) | payer MEDICARE, SELFPAY ==
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
--- OUTSIDE RECORDS SUMMARY | 2025-09-03 12:20 | XMS_ITS | CCD ---
Author Organization [facility] CliniSyfl Care Team Providers Care Undercollar Maker Name Role Phone AMBER KIRBY Admitting Unavailable [...] Admitting Unavailable Daksha Oreilly Primary Care Physician [phone] Haroon Don Attending Unavailable NillHaroon Admitting Unavailable Haroon DON Attending Unavailable Daksha Oreilly Referring Unavailable Haroon DON Attending Unavailable MOUKARBELBRYCE Attending Unavailable Allergies Allergy ClassificationReported Allergen(s)Allergy TypeDate of OnsetReaction(s) Facility (1 source)black walnut pollen extractDrug AllergyThe [facility] ([facility] source)Hmg-Coa Reductase Inhibitors (Statins); Translations: [statins] Propensity to adverse reactions (disorder)[facility] Repository (1 source)No Known Medication Allergies; Translations: [No Known Medication Allergies]Propensity to adverse reactions (disorder)[facility] Repository Medications Current Medications MedicationDrug Class(es)DatesSig (Normalized)Sig (Original)aspirin 81 mg delayed release oral tablet (2 sources)Platelet Aggregation Inhibitor, Nonsteroidal Anti-inflammatory Drug Start: 32-20-7114wrsf 1 tablet by mouth once dailyaspirin 81 mg Oral EC Tab 81 mg = 1 tab(s), Oral, Daily Start Date: 06/19/21 Status: Orderedatenolol 50 mg oral tablet (2 sources)beta-Adrenergic BlockerStart: 09-89-6719yzyi 1 tablet by mouth once dailyatenolol 50 mg Tab 50 mg = 1 tab(s), Oral, Daily Start Date: 06/19/21 Status: OrderedOsteo Bi-Flex (2 sources)Start: 75-54-0387Mbzmg Bi-Flex Refill(s) 0 Start Date: 02/16/24 Status: Orderedezetimibe 10 mg oral tablet (2 sources)Dietary Cholesterol Absorption InhibitorStart: 25-16-4283xaqd 1 tablet by mouth once dailyezetimibe 10 mg Tab 10 mg = 1 tab(s), Oral, Daily Start Date: 06/19/21 Status: OrderedFish Oils (2 sources)Start: 13-38-7614wnsx 1200 mg by mouth once dailyFish Oil 1,200 mg, Oral, Daily Start Date: 06/19/21 Status: Orderedlisinopril 10 mg oral tablet (2 sources)Angiotensin Converting Enzyme InhibitorStart: 33-14-6470liqn 1 tablet by mouth once dailylisinopril 10 mg Tab 10 mg = 1 tab(s), Oral, Daily Start Date: 06/19/21 Status: OrderedMultivitamin preparation (2 sources)Start: 54-95-4766xepm 1 tablet by mouth once dailymultivitamin 1 tab(s), Oral, Daily, Refill(s) 0 Start Date: 02/16/24 Status: Orderedrosuvastatin calcium 10 mg oral tablet (2 sources)HMG-CoA Reductase InhibitorStart: 39-12-1993dpen 1 tablet by mouth once dailyrosuvastatin 10 mg Tab 10 mg = 1 tab(s), Oral, Daily Start Date: 06/19/21 Status: Ordered Problems Active Problems Problem ClassificationProblemDateDocumented DateEpisodic/ChronicAcute cerebrovascular disease (2 sources)Cerebrovascular -32-8559SomhhcuKscio myocardial infarction (2 sources)Myocardial dsefmqmlge91-25-5629UihbaylRwfoqwvc (2 sources)Uzcplezk83-92-6625FsyfslzBmsagxjb atherosclerosis and other heart disease (7 sources)Atherosclerotic heart disease of [place] coronary artery without angina pectoris; Translations: [Coronary arteriosclerosis]Onset: 08-19-2022 30-77-4175NlwisioYnnmipme mellitus without complication (4 sources)Other abnormal glucose; Translations: [OTHER ABNORMAL GLUCOSE]Onset: 17-71-5674SlvaauucHabssmnmm of lipid metabolism (9 sources)Hyperlipidemia, unspecified; Translations: [Hyperlipidemia]Onset: 15-81-3674UkateenKgikcuqrm hypertension (5 sources)Essential (primary) hypertension; Translations: [Hypertensive disorder]Onset: 058611-16-1790JupuqeaZtqjfrt and fatigue (1 source)Other fatigue; Translations: [OTHER FATIGUE]Onset: 76-68-6003Qhkxwlqd Osteoarthritis (2 sources)Wruillzugbmtgf34-59-5793GpolpneQuosjluedluc (2 sources)Mqjlwhoaaboq46-04-3665JcjmifeRlhcp gastrointestinal disorders (2 sources)Occult blood in jqcooh07-50-9331PraekawhQyebr nutritional; endocrine; and metabolic disorders (2 sources)Body mass index 30+ - qktjbaq69-31-3762PdumhaxRmvxf nutritional; endocrine; and metabolic disorders (2 sources)Morbid pkysiwd00-20-1079LdvnwmiUysco screening for suspected conditions (not mental disorders or infectious disease) (2 sources)Encounter for screening for malignant neoplasm of prostate; Translations: [Encounter for screening for malignant neoplasm of rectum]Onset: 98-04-2747RcnoxnjdXqeni skin disorders (2 sources)Hypertrophic condition of skin; Translations: [Other hypertrophic disorders of the skin]Onset: 95-85-3985QcakdsquDxhnh skin disorders (2 sources)Skin kqx20-08-8747GjjmavmoGtxs-; endo-; and myocarditis; cardiomyopathy (except that caused by tuberculosis or sexually transmitted disease) (2 sources)CardiomyopathyOnset: 962626-36-6874SgxetotPetxqmkunuv; intervertebral disc disorders; other back problems (2 sources)Degeneration of lumbar intervertebral xhvw01-10-9408Vhryzue Spondylosis; intervertebral disc disorders; other back problems (2 sources)Spinal stenosis of lumbar -99-9099Xmdgyuca Past or Other Problems Problem ClassificationProblemDateDocumented DateEpisodic/ChronicCoronary atherosclerosis and other heart disease (2 sources)Presence of aortocoronary bypass graft; Translations: [Presence of aortocoronary bypass graft]Onset: 36-13-1173AjilqueuZrezk liver diseases (2 sources)Abnormal levels of other serum enzymes; Translations: [Abnormal levels of other serum enzymes]Onset: 48-94-0423Mpadyxhj Results Test NameValueInterpretationReference HxaeeFmcdzaxf36pt ----- Message ----- From: Bryce Huerta MD Sent: 03/27/2025 12:18 PM EDT To: Sunita Blanco MA His echo was ok, follow up as planned. Advised patient of Dr. Huerta's finding. Patient verbalized understanding.NormalUnTriHealth Bethesda North HospitalOrders Onlyon 30-99-0236Utybvi [id number] Gretchen Delatorre 1950 M Date Provider Department Center 03/24/2025 [id number], [facility] RONAL Monsalve Family History Family history unknown: YesNormalUniversMedina HospitalOffice Visit on 07-99-3938Qvbuev-up [id number] Gretchen Delatorre 1950 M Date Provider Department Center 10/18/2024 [facility] RONAL Monsalve Family History Family history unknown: Yes Level of Service:91073 [place] OFFICE/OUTPATIENT ESTABLISHED LOW MDM 20 [facility] HospitalPathology Noteon 80-46-6876Cfeokmkvx Note [id number]#1.00TIFMemorial Health System Selby General HospitalAmbulatory Visit Summaryon 72-11-9927Fxhdmtozqs Visit Summary GRETCHEN DELATORRE :1950 Visit Date:03/02/2024 Ambulatory Visit Instructions Your Diagnosis Skin tag Your Care Team Attending Physician - AUDI JAIME, Haroon Ellison Primary Care Physician - Daksha Oreilly MD This Is Your Medications List Contact prescribing physician if questions or concerns aspirin (aspirin 81 mg Oral EC Tab) atenolol (atenolol 50 mg Tab) chondroitin-glucosamine (Osteo Bi-Flex) ezetimibe (ezetimibe 10 mg Tab) [...] prescribing physician if questions or concerns Unchanged chondroitin-glucosamine (Osteo Bi-Flex) Contact prescribing physician if questions [...] Oil) 1,200 Milligram By Mouth Every day Contactprescribing physician if questions or concerns Unchanged rosuvastatin [...] you for choosing us for your care. [facility] HospitalGeneral Surgery Office/Clinic Noteon 43-02-5595Tjahzvd Surgery Office/Clinic NoteChief Complaint in-office excisional biopsy HPI Staff Presents for in-office excisional biopsy skin tag right chest wall. History of Present Illness patient here for excision of enlarging, irritated skin tag right chest wall, no change since recentevaluation. Review of Systems ROS - Provider Constitutional: no fever, no sweats, no weight loss. Eyes: no glasses, no blurred vision, no visual loss. ENMT: no dentures, no hoarseness, no swallowing difficulties, no hearing loss, no ear infection(s),no nose bleeds. Cardiovascular: normal blood pressure, no [...] Recorded SARS-CoV-2 (COVID-19) mRNA BNT-162b2 vax 02/06/2021 RecordedSelect Medical OhioHealth Rehabilitation HospitalComment on above:Result Comment: Electronically Signed By: Haroon DON MD\Date and Time Signed: 03/02/24 15:16 Feliberto 03-02-2024L Specimen: [id number] Received: 03/03/24 Status: MICHELLE Santana Num: [id number] Spec Type: Surgical Subm Dr: Haroon Don MD FACS Tissues: A Skin-Other than Cyst, tag, debridement or plastic repair (RT CHEST WALL) Procedures: HE/4, Gross/Micro L4 Age/ Patient Sex Location Account Attending Physician Gretchen Delatorre 73/M [place] [id number] Haroon Don MD FACS SPEC NUM: [id number] RECD: 03/03/24 STATUS: MICHELLE SANTANA NUM: [id number] PIYUSH: 03/02/24- DR: Haroon Don MD FACS ENTERED: 03/03/[address] [facility] [address]: Ava Salomon SPEC TYPE: Surgical DEPT: AIDEN WALLIS ORDERED: HE, Gross/Micro L4 ORDERED: , Gross/Micro L4 Pathological [...] skin tag over several years CPT Codes 05908 Specimen: [id number] Received: 03/03/24 Status: MICHELLE Santana Num: [id number] Spec Type: Surgical Subm Dr: Haroon Don MD FACS Tissues: A Skin-Other than Cyst, tag, debridement or plastic repair (RT CHEST WALL) Procedures: , Gross/Micro L4 Patient: Gretchen Delatorre [id number] (Continued) Signed (signature on file) Misael Erazo MD 03/04/[address] [place] [address] Physician GroupAmbulatory Visit Summaryon 51-50-0233Uvtucuacex Visit Summary GRETCHEN DELATORRE A :1950 Visit Date:02/18/2024 Ambulatory Visit Instructions Your Care Team Attending Physician - AUDI JAIME, Haroon Ellison Primary Care Physician - Afia JAIME, Daksha Referring Physician - Daksha Oreilly MD This Is Your Medications List aspirin (aspirin 81 mg Oral EC Tab) atenolol (atenolol 50 mg Tab) chondroitin-glucosamine (Osteo Bi-Flex) ezetimibe (ezetimibe 10 mg Tab) [...] Follow-Up Appointments Friday 3:00 PM EDT With: AUDI JAIME, Haroon Ellison Where: General Surgery Niljaney/Callie [facility] Facesheeton 91-17-6065Efncjcnep [id number]#1.00TIFMemorial Health System Selby General HospitalPhysician Referralon 65-67-8973Ciirmiwhx Referral [id number]#1.00TIFMemorial Health System Selby General HospitalPhysician Referralon 01-50-8130Hxvcujsrm Referral [id number]#1.00[facility] HospitalOCC BLD IMMUNO SCREENon 42-63-0749CNCTTP BLOODPositiveAbnormalNEGATIVEThe [facility] HospitalComment on above:Performed By: #### CMP, CK, LIPID #### [facility] [address] [address] [address] Tyrell Brooks AUTO DIFFon 17-97-5738JIRX #0.0 103/ulNormal0.0-0.1Av[facility] Health SystemComment on above:Performed By: #### CBC #### [facility] [address] [address] [address] Tyrell Amandasophils/100 WBC (Bld)0.5 %Normal0.2-2.0[facility] Comment on above:Performed By: #### CBC #### [facility] [address] [address] [address] Tyrell Crenshaw #0.2 103/ulNormal0.0-0.7The [facility] HospitalComment on above: Performed By: #### CBC #### [facility] [address] [place] [address] Dr. Tyrell Cernaosinophils/100 WBC (Bld)2.6 %Normal0.9-7.0The [facility] Comment on above:Performed By: #### CBC #### [facility] [address] [place] [address] Dr. Tyrell Cernarythrocyte distribution width (RBC) [Ratio]11.7 %Byhscm58.0-15.0 The [facility] on above:Performed By: #### CBC #### [facility] [address] [place] [address] Dr. Tyrell CasillasHematocrit (Bld) [Volume fraction]39.9 %Critically low42.0-54.0 The [facility] HospitalCommymichigan medical center [facility] on above:Performed By: #### CBC #### [facility] [address] [place] [address] Dr. Tyrell CasillasHemoglobin (Bld) [Mass/Vol]13.9 g/dLCritically low14.0-18.0The [facility] HospitalComment on above:Performed By: #### CBC #### [facility] [address] [place] [address] Dr. Tyrell Bermeo #0.02 10e3/ulNormal0.00-0.03The [facility] HospitalCommymichigan medical center [facility] on above:Performed By: #### CBC #### [facility] [address] [place] [address] Dr. Tyrell Bermeo %0.3 %Normal0.0-0.5The [facility] on above: Performed By: #### CBC #### [facility] [address] [place] [address] Dr. Tyrell TallyeH #1.7 103/ulNormal1.2-3.8The [facility] HospitalCommymichigan medical [facility] on above:Performed By: #### CBC #### [facility] [address] [place] [address] Dr. Tyrell Woodruffmphocytes/100 WBC (Bld)28.1 %Qqeqea46.5-60.0The [facility] HospitalCommymichigan medical [facility] on above:Performed By: #### CBC #### [facility] [address] [place] [address] Dr. Tyrell CasillasMANUAL DIFF REQNONormalThe [facility] HospitalComment on above: Performed By: #### CBC #### [facility] [address] [address] [address] Tyrell Villarreal (RBC) [Entitic mass]32.3 inMpxyte02.9-34.0The [facility] HospitalComment on above:Performed By: #### CBC #### [facility] [address] [place] [address] Dr. Tyrell Villarreal (RBC) [Mass/Vol]34.8 g/dAAwssqw16.9-35.2The [facility] HospitalComment on above:Performed By: #### CBC #### [facility] [address] [place] [address] Dr. Tyrell Villarreal (RBC) [Entitic vol]92.8 oZGstksy29.0-94.0The [facility] HospitalComment on above:Performed By: #### CBC #### [facility] [address] [place] [address] Dr. Tyrell Elizondo #0.5 103/ulNormal0.3-0.8The [facility] HospitalComment on above:Performed By: #### CBC #### [facility] [address] [place] [address] Dr. Tyrell Patelocytes/100 WBC (Bld)8.5 %Normal1.7-12.0The [facility] Comment on above:Performed By: #### CBC #### [facility] [address] [place] [address] Dr. Tyrell Willson #3.5 103/ulNormal1.4-6.5The [facility] HospitalComment on above:Performed By: #### CBC #### [facility] [address] [place] [address] Dr. Tyrell Oconnorutrophils/100 WBC (Bld)60.0 %Afpyux42.0-75.0The [facility] HospitalComment on above:Performed By: #### CBC #### [facility] [address] [place] [address] Dr. Tyrell Chowdhurylet mean volume (Bld) [Entitic vol]8.3 fLCritically low 9.5-13.5The [facility] on above:Performed By: #### CBC #### [facility] [address] [address] [address] Tyrell CasillasPLT200 103/jlZnnutq283-761Ktn [facility] on above: Performed By: #### CBC #### [facility] [address] [address] [address] Tyrell CasillasRBC4.30 106/ulCritically low4.70-6.10The [facility] HospitalCommymichigan medical [facility] on above:Performed By: #### CBC #### [facility] [address] [place] [address] Dr. Tyrell CasillasWBC5.9 103/ulNormal4.0-11.0The [facility] HospitalCommymichigan medical [facility] on above: Performed By: #### CBC #### [facility] [address] [place] [address] Dr. Tyrell CasillasCPKomartin 01-53-0893PJ [Catalytic activity/Vol]505 U/LCritically high 39-308The [facility] on above:Performed By: #### CK #### [facility] [address] [place] [address] Dr. Tyrell CasillasFRLUZ MARINA T3on 39-80-9966ZLDY T32.98 pg/mlLNormal2.18-3.98[facility] on above:Performed By: #### T4, CMP, TSH, FT3, LIPID #### [facility] [address] [place] [address] Dr. Tyrell CasillasGLYCOHEMOGLOBIN A1Con 84-94-2440DNK RECOMMENDATIONSEE BELOWNormal The [facility] HospitalCommymichigan medical [facility] on above:Result Comment: ADA RECOMMENDED LIMIT 4.0 - 6.0 ADA THERAPEUTIC TARGET < 7.0 ACTION SUGGESTED > 7.0Performed By: #### CMP, CK, LIPID #### [facility] [address] [place] [address] Dr. Tyrell CasillasGlucose [Mass/Vol]131 mg/dLNormalThSelect Medical Specialty Hospital - [facility] NorthCommymichigan medical center [place] on above:Performed By: #### CMP, CK, LIPID #### [facility] [address] [address] [address] Tyrell CasillasHbA1c (Bld) [Mass fraction]6.2 %Normal4.5-6.2The [facility] Orthopedic Centerment on above:Performed By: #### CMP, CK, LIPID #### [facility] [address] [address] [address] Tyrell HuangID PROFILEon 10-42-2026JRGN-HDL RATIO NORMSEE BELOWSamaritan North Health CenterComment on above:Result Comment: 3.3 - 4.4 LOW RISK 4.4 - 7.1 AVERAGE RISK 7.1 - 11.0 MODERATE RISK >11.0 HIGH RISKPerformed By: #### T4, CMP, TSH, FT3, LIPID #### [facility] [address] [place] [address] Dr. Tyrell Harperesterol [Mass/Vol]150 mg/dLNormal<=200The [facility] Comment on above:Performed By: #### T4, CMP, TSH, FT3, LIPID #### [facility] [address] [address] [address] Tyrell Harperesterol in HDL [Mass/Vol]42 mg/rJNucojz75-59MbuWyandot Memorial Hospital on above:Performed By: #### T4, CMP, TSH, FT3, LIPID #### [facility] [address] [address] [address] Tyrell Harperesterol in LDL [Mass/Vol]84.2 mg/dLSamaritan North Health CenterCommymichigan medical center [facility] on above:Performed By: #### T4, CMP, TSH, FT3, LIPID #### [facility] [address] [address] [address] Tyrell Rosario.total/Cholesterol in HDL [Mass ratio]3.6 {ratio} NormalThe [facility] HospitalCommymichigan medical center [facility] on above:Performed By: #### T4, CMP, TSH, FT3, LIPID #### [facility] [address] [place] [address] Dr. Tyrell SchultzL NORMAL> or = 60 mg/dl - LOW CARDIOVASCULAR RISK <40 mg/dl - HIGH CARDIOVASCULAR RISKSamaritan North Health CenterComment on above:Performed By: #### T4, CMP, TSH, FT3, LIPID #### [facility] [address] [place] [address] Dr. Tyrell Garcia CALC NORMALSEE BELOWSamaritan North Health CenterComment on above:Result Comment: <100 mg/dl OPTIMAL 100 - 129 mg/dl NEAR OR ABOVE OPTIMAL 130 - 159 mg/dl BORDERLINE HIGH 160 - 189 mg/dl HIGH >190 mg/dl VERY HIGH Performed By: #### T4, CMP, TSH, FT3, LIPID #### [facility] [address] [place] [address] Dr. Tyrell CasillasTriglyceride [Mass/Vol]119 mg/dLNormal<=150The [facility] Comment on above:Performed By: #### T4, CMP, TSH, FT3, LIPID #### [facility] [address] [place] [address] Dr. Tyrell CasillasVLDL CALC23.8 mg/dLNoKindred Hospital LimaComment on above: Performed By: #### T4, CMP, TSH, FT3, LIPID #### [facility] [address] [place] [address] Dr. Tyrell CasillasPRODiego 14(COMP METB)on 00-64-4895Sfwuard [Mass/Vol]4.5 g/dLNormal 3.4-5.0The [facility] HospitalComment on above:Performed By: #### T4, CMP, TSH, FT3, LIPID #### [facility] [address] [place] [address] Dr. Tyrell CasillasAlbumin/Globulin [Mass ratio]1.1 {ratio}NormalThe [facility] HospitalComment on above:Performed By: #### T4, CMP, TSH, FT3, LIPID #### [facility] [address] [place] [address] Dr. Tyrell Haile [Catalytic activity/Vol]57 U/AAwipwu48-098Eeg [facility] Orthopedic Centerment on above:Performed By: #### T4, CMP, TSH, FT3, LIPID #### [facility] [address] [address] [address] Tyrell Martin [Catalytic activity/Vol]49 U/ROjfnvy67-74Bvj [facility] HospitalComment on above:Performed By: #### T4, CMP, TSH, FT3, LIPID #### [facility] [address] [address] [address] Tyrell Barbosaon gap [Moles/Vol]12.7 mmol/LNormalAvita Health System Comment on above:Performed By: #### T4, CMP, TSH, FT3, LIPID #### [facility] [address] [place] [address] Dr. Tyrell Mondragon [Catalytic activity/Vol]35 U/ZArwfws78-70Yyc [facility] HospitalComment on above:Performed By: #### T4, CMP, TSH, FT3, LIPID #### [facility] [address] [place] [address] Dr. Tyrell CasillasBilirubin [Mass/Vol]0.4 mg/dLNormal0.2-1.0[facility] Comment on above:Performed By: #### T4, CMP, TSH, FT3, LIPID #### [facility] [address] [place] [address] Dr. Tyrell CasillasCalcium [Mass/Vol]9.5 mg/dLNormal8.5-10.1[facility] Comment on above:Performed By: #### T4, CMP, TSH, FT3, LIPID #### [facility] [address] [place] [address] Dr. Tyrell CasillasChloride [Moles/Vol]106 mmol/XBlpvsk74-066Ket [facility] Comment on above:Performed By: #### T4, CMP, TSH, FT3, LIPID #### [facility] [address] [place] [address] Dr. Tyrell CasillasCO2 [Moles/Vol]27.4 mmol/BJpabbq43.0-32.0[facility] Comment on above:Performed By: #### T4, CMP, TSH, FT3, LIPID #### [facility] [address] [address] [address] Tyrell CasillasCreatinine [Mass/Vol]0.96 mg/dLNormal0.70-1.30The [facility] HospitalComment on above:Performed By: #### T4, CMP, TSH, FT3, LIPID #### [facility] [address] [address] [address] Tyrell CernaGFR-AF EAST TIMORESE>60Normal>=60The [facility] HospitalComment on above:Performed By: #### T4, CMP, TSH, FT3, LIPID #### [facility] [address] [place] [address] Dr. Tyrell CernaGFR-NON AF EAST TIMORESE>60Normal>=60The [facility]opedic Centerment on above:Performed By: #### T4, CMP, TSH, FT3, LIPID #### [facility] [address] [place] [address] Dr. Tyrell CasillasGlobulin (S) [Mass/Vol]4.0 g/dLNormalThe [facility] HospitalComment on above:Performed By: #### T4, CMP, TSH, FT3, LIPID #### [facility] [address] [place] [address] Dr. Tyrell CasillasGlucose [Mass/Vol]101 mg/wEWaflsu05-986Lsb [facility] Comment on above:Performed By: #### T4, CMP, TSH, FT3, LIPID #### [facility] [address] [place] [address] Dr. Tyrell CasillasPotassium [Moles/Vol]4.1 mmol/LNormal3.5-5.1The [facility] Comment on above:Performed By: #### T4, CMP, TSH, FT3, LIPID #### [facility] [address] [place] [address] Dr. Tyrell CasillasProtein [Mass/Vol]8.5 g/dLCritically high6.4-8.2The [facility] Centerment on above:Performed By: #### T4, CMP, TSH, FT3, LIPID #### [facility] [address] [place] [address] Dr. Yilan ChangSodium [Moles/Vol]142 mmol/HGwcixo933-110Drb [facility] Comment on above:Performed By: #### T4, CMP, TSH, FT3, LIPID #### [facility] [address] [place] [address] Dr. Tyrell CasillasUrea nitrogen [Mass/Vol]18.0 mg/dLNormal7.0-18.0The [facility] HospitalComment on above:Performed By: #### T4, CMP, TSH, FT3, LIPID #### [facility] [address] [place] [address] Dr. Tyrell CasillasUrea nitrogen/Creatinine [Mass ratio]18.8 mg/mgNoKindred Hospital LimaComment on above:Performed By: #### T4, CMP, TSH, FT3, LIPID #### [facility] [address] [place] [address] Dr. Tyrell CasillasT4on 09-10-0405Z9 [Mass/Vol]5.60 ug/dLNormal4.50-12.10The [facility] HospitalComment on above:Performed By: #### T4, CMP, TSH, FT3, LIPID #### [facility] [address] [place] [address] Dr. Tyrell Xiao 46-20-0123GMX0.892 uIU/mLNormal0.358-3.740Avita Health SystemComment on above:Performed By: #### T4, CMP, TSH, FT3, LIPID #### [facility] [address] [place] [address] Dr. Tyrell CasillasCPKomartin 02-09-5076KO [Catalytic activity/Vol]444 U/LCritically high 39-308The [facility] HospitalComment on above:Performed By: #### CMP, CK, LIPID #### [facility] [address] [place] [address] Dr. Tyrell CasillasLIPID PROFILEon 66-78-7787ZSDQ-HDL RATIO NORMSEE TriHealthComment on above:Result Comment: 3.3 - 4.4 LOW RISK 4.4 - 7.1 AVERAGE RISK 7.1 - 11.0 MODERATE RISK >11.0 HIGH RISKPerformed By: #### CMP, CK, LIPID #### [facility] [address] [place] [address] Dr. Tyrell CasillasCholesterol [Mass/Vol]132 mg/dLNormal<=200The [facility] Comment on above:Performed By: #### CMP, CK, LIPID #### [facility] [address] [place] [address] Dr. Tyrell CasillasCholesterol in HDL [Mass/Vol]39 mg/dLCritically cos78-55PrqAvita Health SystemComment on above:Performed By: #### CMP, CK, LIPID #### [facility] [address] [place] [address] Dr. Tyrell CasillasCholesterol in LDL [Mass/Vol]72.8 mg/dLNoKindred Hospital LimaComment on above:Performed By: #### CMP, CK, LIPID #### [facility] [address] [place] [address] Dr. Tyrell Harperesterbg.total/Cholesterol in HDL [Mass ratio]3.4 {ratio} NormalAvita Health SystemComment on above:Performed By: #### CMP, CK, LIPID #### [facility] [address] [place] [address] Dr. Tyrell Beaver NORMAL> or = 60 mg/dl - LOW CARDIOVASCULAR RISK <40 mg/dl - HIGH CARDIOVASCULAR RISKSamaritan North Health CenterComment on above:Performed By: #### CMP, CK, LIPID #### [facility] [address] [place] [address] Dr. Tyrell CasillasLDL CALC NORMALSEE BELOWSamaritan North Health CenterComment on above:Result Comment: <100 mg/dl OPTIMAL 100 - 129 mg/dl NEAR OR ABOVE OPTIMAL 130 - 159 mg/dl BORDERLINE HIGH 160 - 189 mg/dl HIGH >190 mg/dl VERY HIGH Performed By: #### CMP, CK, LIPID #### [facility] [address] [place] [address] Dr. Tyrell CasillasTriglyceride [Mass/Vol]101 mg/dLNormal<=150The [facility] Comment on above:Performed By: #### CMP, CK, LIPID #### [facility] [address] [place] [address] Dr. Tyrell YorkLDL CALC20.2 mg/dLNormalThe [facility] HospitalComment on above: Performed By: #### CMP, CK, LIPID #### [facility] [address] [address] [address] Tyrell CasillasPROF 14(COMP METB)on 44-03-0073Dwiruoa [Mass/Vol]4.4 g/dLNormal 3.4-5.0The [facility] HospitalComment on above:Performed By: #### CMP, CK, LIPID #### [facility] [address] [place] [address] Dr. Tyrell CasillasAlbumin/Globulin [Mass ratio]1.3 {ratio}NormalThe [facility] HospitalComment on above:Performed By: #### CMP, CK, LIPID #### [facility] [address] [place] [address] Dr. Tyrell Haile [Catalytic activity/Vol]55 U/BLvdznj51-839Poh [facility] HospitalComment on above:Performed By: #### CMP, CK, LIPID #### [facility] [address] [place] [address] Dr. Tyrell Martin [Catalytic activity/Vol]48 U/LFmekzb69-91Rwt [facility] HospitalComment on above:Performed By: #### CMP, CK, LIPID #### [facility] [address] [place] [address] Dr. Tyrell Whittaker gap [Moles/Vol]12.1 mmol/LNormalThe [facility] Comment on above:Performed By: #### CMP, CK, LIPID #### [facility] [address] [place] [address] Dr. Tyrell Mondragon [Catalytic activity/Vol]35 U/JWyzmvl28-12Yqd [facility] HospitalComment on above:Performed By: #### CMP, CK, LIPID #### [facility] [address] [place] [address] Dr. Tyrell CasillasBilirubin [Mass/Vol]0.4 mg/dLNormal0.2-1.0The [facility] Comment on above:Performed By: #### CMP, CK, LIPID #### [facility] [address] [place] [address] Dr. Tyrell CasillasCalcium [Mass/Vol]9.0 mg/dLNormal8.5-10.1The [facility] Comment on above:Performed By: #### CMP, CK, LIPID #### [facility] [address] [place] [address] Dr. Tyrell CasillasChloride [Moles/Vol]106 mmol/EYrylyw37-794Eti [facility] Comment on above:Performed By: #### CMP, CK, LIPID #### [facility] [address] [place] [address] Dr. Tyrell CasillasCO2 [Moles/Vol]25.0 mmol/ZFozdwy13.0-32.0The [facility] Comment on above:Performed By: #### CMP, CK, LIPID #### [facility] [address] [place] [address] Dr. Tyrell CasillasCreatinine [Mass/Vol]0.85 mg/dLNormal0.70-1.30The [facility] HospitalComment on above:Performed By: #### CMP, CK, LIPID #### [facility] [address] [place] [address] Dr. Tyrell CernaGFR-AF EAST TIMORESE>60Normal>=60The [facility] HospitalComment on above:Performed By: #### CMP, CK, LIPID #### [facility] [address] [place] [address] Dr. Tyrell CernaGFR-NON AF EAST TIMORESE>60Normal>=60The [facility] HospitalComment on above:Performed By: #### CMP, CK, LIPID #### [facility] [address] [place] [address] Dr. Tyrell CasillasGlobulin (S) [Mass/Vol]3.4 g/dLNormalThe [facility] HospitalComment on above:Performed By: #### CMP, CK, LIPID #### [facility] [address] [address] [address] Tyrell CasillasGlucose [Mass/Vol]106 mg/gGCopxzc21-424OynAvita Health System Comment on above:Performed By: #### CMP, CK, LIPID #### [facility] [address] [address] [address] Tyrell CasillasPotassium [Moles/Vol]4.1 mmol/LNormal3.5-5.1The [facility] Comment on above:Performed By: #### CMP, CK, LIPID #### [facility] [address] [address] [address] Tyrell CasillasProtein [Mass/Vol]7.8 g/dLNormal6.4-8.2The [facility] Comment on above:Performed By: #### CMP, CK, LIPID #### [facility] [address] [address] [address] Tyrell CasillasSodium [Moles/Vol]139 mmol/UNujrdi261-819GlhAvita Health System Comment on above:Performed By: #### CMP, CK, LIPID #### [facility] [address] [address] [address] Tyrell CasillasUrea nitrogen [Mass/Vol]15.0 mg/dLNormal7.0-18.0Avita Health SystemComment on above:Performed By: #### CMP, CK, LIPID #### [facility] [address] [address] [address] Tyrell Watts nitrogen/Creatinine [Mass ratio]17.6 mg/mgNormalThe [facility] HospitalComment on above:Performed By: #### CMP, CK, LIPID #### [facility] [address] [place] [address] Dr. Tyrell CasillasCoding Summaryon 96-84-9523Ipsavj SummaryCODING DATE: 05/31/2020 [facility] STATUS: Home PAYOR: Medicare MC [...] By: Eugenie George Date Saved: 05/31/2020 01:32 [facility] CenterProvider Orderson 82-76-8739Wogibfdr [id number]#1.00OTCentral [facility] HospitalCoding Summaryon 94-14-1541Zonpxr SummaryCODING DATE: 05/19/[address] [facility] STATUS: Home PAYOR: Medicare MC APC DESCRIPTION 5115 Level 5 Musculoskeletal Procedures ADMIT DX: REASON FOR VISIT DX: M16.11 Unilateral primary osteoarthritis, right hip FINAL DX: PRINCIPAL: M16.11 Unilateral primary osteoarthritis, right hip SECONDARY: I10 Essential (primary) hypertension I25.10 Atherosclerotic heart disease of [place] coronary artery without angina pectoris Z86.73 Personal history of transient ischemic attack (TIA), and cerebral infarction without residual deficits [facility] DES[facility] DOCTOR NAME DATE 64706 5115 J1 Arthroplasty, acetabular Quirino, Bairon And [...] Nicci Kee Revised Date Saved: 05/18/2020 12:22 [facility] CenterConsent Formson 15-16-6476Kzlbqmj [id number]#1.00OTMemorial Health System Selby General HospitalMedication Managementon 38-77-1694Dzbgubgqmo Management [id number]#1.00OTGTProMedica Toledo Hospital Outside Recordson 02-98-1227Dyewtkk Records [id number]#1.00[facility] Provider Orderson 97-96-2512Iaasgiab Orders [id number]#1.00[facility] Telemetry Stripson 37-98-9957Diylngjno Strips [id number]#1.00[facility].Auto Diff 1on 61-26-2962Hvhn Gregg %7 %Normal1-12[facility] HospitalComment on above: Performed By: #### [id number], [id number], [id number] #### [facility] (DEFAULT) [address] [place] [address] 89242Nakf Abs#0.0 x65Rtqsca9.0-0.2Mwvumedicine [facility] hospital HospitalComment on above:Performed By: #### [id number], [id number], [id number] #### [facility] (DEFAULT) [address] [place] [address] 08140Eiiyjswvg/100 WBC (Bld)0.2 %Normal0.2-2.0[facility] Comment on above:Performed By: #### [id number], [id number], [id number] #### [facility] (DEFAULT) [address] [place] [address] 90856Ige Abs#0.1 c98Tmwaoj7.0-0.4[facility] HospitalComment on above:Performed By: #### 8155976, [id number], [id number] #### [facility] (DEFAULT) [address] [place] [address] 76660Fizitfdofcz/100 WBC (Bld)1.5 %Normal0.9-4.0[facility] HospitalComment on above:Performed By: #### [id number], [id number], [id number] #### [facility] (DEFAULT) [address] [place] [address] 37775Mvpwmfipkcf (Bld) [#/Vol]1.3 t90Ugpccm3.3-2.9[facility] HospitalComment on above:Performed By: #### [id number], [id number], [id number] #### [facility] (DEFAULT) [address] [place] [address] 33678Icvgptphaon/100 WBC (Bld)15 %Sasmng94-05Djifpatx Hospital Comment on above:Performed By: #### [id number], [id number], [id number] #### [facility] (DEFAULT) [address] [place] [address] 57398Feky Abs#0.6 o23Jgwupg1.0-0.8[facility] HospitalComment on above:Performed By: #### [id number], [id number], [id number] #### [facility] (DEFAULT) [address] [place] [address] 50926Qwzh Abs#6.4 d32Pxipnb3.5-9.2Mwvumedicine [facility] hospital HospitalComment on above:Performed By: #### [id number], [id number], [id number] #### [facility] (DEFAULT) [address] [place] [address] 13583Otjqfjwatlx/100 WBC (Bld)76 %Myqspj29-54Jdvfichz Hospital Comment on above:Performed By: #### [id number], 86855207, [id number] #### [facility] (DEFAULT) [address] [place] [address] 19450EIE w/ Auto Diffon 36-39-1906Rfpjlhdkwdj distribution width (RBC) [Ratio]11.9 %Isbfmc72.5-15.0[facility] HospitalComment on above: Performed By: #### [id number], [id number], [id number] #### [facility] (DEFAULT) [address] [place] [address] 37360Gwahhvduhc (Bld) [Volume fraction]26.9 %Low34.8-51.9 [facility] HospitalComment on above:Performed By: #### 4783857, 23832984, [id number] #### [facility] (DEFAULT) [address] [place] [address] 25589Xxivwnwppk (Bld) [Mass/Vol]9.2 g/dLLow11.8-17.7[facility] CenterComment on above:Performed By: #### [id number], [id number], [id number] #### [facility] (DEFAULT) [address] [place] [address] 84701Iii Diff?AutoNormalAs[facility]abula [facility] Center HospitalComment on above: Performed By: #### 4816140, 93840208, [id number] #### [facility] (DEFAULT) [address] [place] [address] 16927WJL (RBC) [Entitic mass]32 lqUhfnlj12-23Dflosdbb Hospital Comment on above:Performed By: #### [id number], 33617327, [id number] #### [facility] (DEFAULT) [address] [place] [address] 07087QDLM (RBC) [Mass/Vol]34 g/dGQrncqg90-08Cletfclt Hospital Comment on above:Performed By: #### [id number], 76600737, [id number] #### [facility] (DEFAULT) [address] [place] [address] 77006INT (RBC) [Entitic vol]94 nJNlvxrt03-431Mrqsrvon Hospital Comment on above:Performed By: #### 9514165, 10020797, [id number] #### [facility] (DEFAULT) [address] [place] [address] 38515Csafurna mean volume (Bld) [Entitic vol]9.4 fLNormal 6.3-10.2MVan Wert County HospitalComment on above:Performed By: #### 2042448, 46538963, [id number] #### [facility] (DEFAULT) [address] [place] [address] 80985Iwyiltwmt (Bld) [#/Vol]203 i42Xckyle452-641Rlcdvyfs HospitalComment on above:Performed By: #### 0914126, 41498067, [id number] #### [facility] (DEFAULT) [address] [place] [address], [place] [address]POJ (Bld) [#/Vol]2.87 a52Qmf4.70-5.30[facility] Comment on above:Performed By: #### 4905434, [id number], [id number] #### [facility] (DEFAULT) [address] [place] [address] 65041QHU (Bld) [#/Vol]8.5 p75Xztpgk9.5-10.5[facility] Comment on above:Performed By: #### [id number], [id number], [id number] #### [facility] (DEFAULT) [address] [place] [address] 79772Ysvlnoijb Noteon 38-21-1413Rrufbutpv NoteEducation Materials POST OPERATIVE TOTAL HIP DISCHARGE INTRUCTIONS [...] your doctor immediately or go to the emergencyroom. How can I prevent DVT? You should keep active. Moving the ankle and foot and bending the knee as tolerated when you are inbed and walking as tolerated. Take medication, especially [...] can be done to rule of a DVT.[facility] HospitalExtra [facility] 29-75-3425Nbhc CollectedWright-Patterson Medical CenterComment on above:Performed By: #### [id number], [id number], [id number] #### [facility] (DEFAULT) [address] [place] [address] 47025Miccxnxmx Patient Summaryon 03-52-1580Swozybxuu Patient Summary[address] [address] Patient Discharge Instructions Name: GRETCHEN DELATORRE : 1950 Patient Address: [address] [address] Primary Care Provider: Name: DAKSHA OREILLY After you are discharged if you find you have any questions, please, call [phone] ext [phone] to speak to a nurse. Discharge Diagnosis: Primary osteoarthritis of right hip Prescription Information: If you have been given a prescription for narcotics, seek immediate medical attention if you have any difficulty breathing or any sudden status changes such as confusion andsleepiness. If you or anyone you know is experiencing suicidal thoughts, mental health, alcohol and/or drug addiction problems; contact the [facility] 26/05 Crisis Hotline -Text 4HUTG to 003280. If you received any narcotics, sedation, or [...] or sign any legal documents [facility] would like to thank you for allowing us to assist you with your healthcare needs.The following includes patient education materials and information regarding your injury/illness. GRETCHEN DELATORRE has been given the following list of follow-up instructions, prescriptions, and patient education materials: Follow-up Instructions With: Address: When: Bairon Win [address] [facility] [address] [place] [address] Business (2) 05/25/2020 2:00 PM With: Address: When: DAKSHA OREILLY [address] [place] [address], [facility] [place] [address] Business (1) Medications During the course of your visit, your medication list was updated with the most current information. The details of those changes are reflected below: Medications That Were Updated - Follow Below Instructions Other Medications Updated: acetaminophen-oxycodone (Percocet 5 mg-325 mg oral tablet) [...] oral tablet) 1 tab(s) Oral every day. chondroitin-glucosamine (Osteo Bi-Flex) 2 tab Oral every day. [...] list that you can keep with you. acetaminophen-oxycodone (Percocet 5 mg-325 mg oral tablet) 1 tab(s) Oral Every 6 hours as needed asneeded for pain. ascorbic acid (Vitamin C 500 mg oral tablet) 1 tab(s) Oral every day. aspirin (Aspir 81 oral delayed release tablet) 1 tab(s) Oral every day. atenolol (atenolol 50 mg oral tablet) 1 tab(s) Oral every day. cholecalciferol (Vitamin D3 1000 intl units oral capsule) 1 cap(s) Oral every day. chondroitin-glucosamine (Osteo Bi-Flex) 2 tab Oral every day. [...] your doctor immediately or go to the emergencyroom. How can I prevent DVT? You should keep active. Moving the ankle and foot and bending the knee as tolerated when you are inbed and walking as tolerated. Take medication, especially [...] Centers for Disease Control and Prevention July 2014No[facility] Nutrition Noteon 63-71-3484Yllfpkqpa NotePt eating well avg 70-100% of meals and taking supplements as ordered. No new wts. Labs reviewed, post op anemia noted. No new rec'd at this time. Will continue to follow.[facility] Noteon 72-56-2599Yxwrwyvh NoteI have personally reviewed the patient's current home medication list including, prescription medications, OTC products, vitamins and supplements. Home medications reviewed upon admission as follows: Active Medications acetaminophen-oxycodone: 2 tab(s), PO, q6hr, PRN: for pain, 0 Refill(s), Refills: 0 ascorbic acid: 500 mg = 1 tab(s), PO, Daily, 30 tab(s), 0 Refill(s), Refills: 0 aspirin: 81 mg = 1 tab(s), PO, Daily, 90 tab(s), 0 Refill(s), Refills: 0 atenolol: 50 mg = 1 tab(s), PO, Daily, 90 tab(s), 0 Refill(s), Refills: 0 cholecalciferol: 25 mcg, PO, Daily, 0 Refill(s), Refills: 0 chondroitin-glucosamine: 2 tab, PO, Daily, 0 Refill(s), Refills: [...] cap(s), PO, TID, 90 cap(s), 0 Refill(s), Refills:0 potassium gluconate: 550 mg = 1 tab(s), [...] Ethel Echavarria [Verified on: 05/17/2020 08:32 EDT] Eliezer EchavarriaAvita Health System Note - Nurseon 05-17-2020 Progress Note - NurseDr. Aguila visited et changed dressing on right hip. Mod. amt of bloody drainage noted on old dressing. Area cleansed with normal saline. Incision well approximated, bruising et edema surround site. No active bleeding noted. ABD. with Primapore applied to site. Pt. tolerated well. [Electronically Signed on: 05/17/2020 17:30 EDT] Patricia Bustillos RN [Verified on: 05/17/2020 17:30 EDT] Bilger RN, [facility]Park[facility]-Physicianon 05-17-2020 Progress Note-PhysicianDATE OF POSTOPERATIVE FOLLOW UP ORTHOPEDIC PROGRESS NOTE: [...] doing satisfactorily and okay for discharge. 2. NOMPoncho Dinh will be coming to the home within the next 24-48 hours. 3. He has been given instructions to periodically lay in bed and elevate the leg intermittently throughout the day. 4. If he has any issues or problems that he may have, he will call Dr. Win's office. Bert Aguila DO JOB #: [id number] [Electronically Signed on: 05/18/2020 11:35 EDT] BERT AGUILA DO [Verified on: 05/18/2020 11:35 EDT] BERT AGUILA DO [Transcribed on: 05/17/2020 14:48 EDT] GDUNProvidence Hospital.Auto Diff 1on 10-83-0753Wtle Gregg %9 %Normal1-12 [facility] HospitalComment on above:Performed By: #### [id number], [id number], [id number] #### [facility] (DEFAULT) [address] [place] [address] 19350Esat Abs#0.0 e41Flminy3.0-0.2Magrbrown memorial hospital HospitalComment on above:Performed By: #### [id number], 32757879, [id number] #### [facility] (DEFAULT) [address] [place] [address] 71369Rslyacqoz/100 WBC (Bld)0.1 %Low0.2-2.0[facility] Comment on above:Performed By: #### [id number], 25520431, [id number] #### [facility] (DEFAULT) [address] [place] [address] 96886Uxe Abs#0.0 s68Iugont7.0-0.4Maselect medical [facility] HospitalComment on above:Performed By: #### 4742596, 29068214, [id number] #### [facility] (DEFAULT) [address] [place] [address] 86284Vkxvsnfonrw/100 WBC (Bld)0.2 %Low0.9-4.0[facility] Hospital Comment on above:Performed By: #### 7350304, 57364287, [id number] #### [facility] (DEFAULT) [address] [place] [address] 59948Xsjnjfpfoyp (Bld) [#/Vol]1.8 a64Czzjwa2.3-2.9Magrbrown memorial hospital HospitalComment on above:Performed By: #### 3074788, [id number], [id number] #### [facility] (DEFAULT) [address] [place] [address] 42130Vtefxiyeqzs/100 WBC (Bld)14 %Nmqfuc92-01Vpunskwa Hospital Comment on above:Performed By: #### [id number], 47294208, [id number] #### [facility] (DEFAULT) [address] [place] [address] 56003Aeys Abs#1.1 m83Kyex6.0-0.8[facility] HospitalComment on above:Performed By: #### [id number], 66556445, [id number] #### [facility] (DEFAULT) [address] [place] [address] 76484Hybr Abs#9.9 w35Wark6.5-9.2Mwvumedicine harrison [facility] hospital HospitalComment on above:Performed By: #### 6346948, 40567783, [id number] #### [facility] (DEFAULT) [address] [place] [address] 64370Dskkqpdlaoj/100 WBC (Bld)77 %Ubnkry79-61Jwimkgoy Hospital Comment on above:Performed By: #### [id number], 48822284, [id number] #### [facility] (DEFAULT) [address] [place] [address] 55817PJQ w/ Auto Diffon 05-37-0739Mtvkcijhzpp distribution width (RBC) [Ratio]12.1 %Nfyxih16.5-15.0[facility] HospitalComment on above: Performed By: #### [id number], 84585453, [id number] #### [facility] (DEFAULT) [address] [place] [address] 65756Vymgskfpxx (Bld) [Volume fraction]30.8 %Low34.8-51.9 [facility] HospitalComment on above:Performed By: #### 2348477, 06565060, [id number] #### [facility] (DEFAULT) [address] [place] [address] 64944Rmxvqxwdhg (Bld) [Mass/Vol]10.5 g/dLLow11.8-17.7[facility] HospitalComment on above:Performed By: #### 1592585, 57732444, [id number] #### [facility] (DEFAULT) [address] [place] [address] 27493Wyw Diff?AutoNormalAshtabula County Medical Center HospitalComment on above: Performed By: #### [id number], 76762401, [id number] #### [facility] (DEFAULT) [address] [place] [address] 28289HUF (RBC) [Entitic mass]32 npXymctv54-60Goyvpcsd Hospital Comment on above:Performed By: #### [id number], 96946929, [id number] #### [facility] (DEFAULT) [address] [place] [address] 42508LXDL (RBC) [Mass/Vol]34 g/fQJwdclw39-02Qggpumll Hospital Comment on above:Performed By: #### [id number], 01803043, [id number] #### [facility] (DEFAULT) [address] [place], [place] [address]V (RBC) [Entitic vol]93 iKOutybh77-345Nodxgrtb Hospital Comment on above:Performed By: #### [id number], 37618255, [id number] #### [facility] (DEFAULT) [address] [place] [address] 22342Yxgdcwst mean volume (Bld) [Entitic vol]9.2 fLNormal 6.3-10.2MVan Wert County HospitalComment on above:Performed By: #### 9084220, 05935877, [id number] #### [facility] (DEFAULT) [address] [place] [address] 34088Qkzjhtwub (Bld) [#/Vol]238 j28Acrwni894-669Bzideudv HospitalComment on above:Performed By: #### 3067076, 45222876, [id number] #### [facility] [facility] (DEFAULT) [address] [place] [address] 53292TDZ (Bld) [#/Vol]3.31 c45Ogk3.70-5.30[facility] Comment on above:Performed By: #### [id number], [id number], [id number] #### [facility] (DEFAULT) [address] [place], [place] [address]MRM (Bld) [#/Vol]12.9 z09Bocg5.5-10.5[facility] Comment on above:Performed By: #### [id number], [id number], [id number] #### [facility] (DEFAULT) [address], [place] [address]Xxoqumzw Note-Physicianon 02-71-7309Nymkauai Note-PhysicianDATE OF POSTOPERATIVE ORTHOPEDIC PROGRESS NOTE: 05/16/2020 TIME: [...] will repeat an x-ray. PROGNOSIS: Good. Bert Aguila, JOB #: [id number] [Electronically Signed on: 05/17/2020 11:24 EDT] AUSTIN AGUILAIrene WHITE [Verified on: 05/17/2020 11:24 EDT] BERT AGUILA DO [Transcribed on: 05/16/2020 13:06 EDT] [facility].Auto Diff 1on 66-09-3138Djgo Gregg %1 %Normal1-12 [facility] CenterComment on above:Performed By: #### [id number], [id number], [id number] #### [facility] (DEFAULT) [address] [place] [address] 71544Ypja Abs#0.0 l36Ckmjho8.0-0.2[facility] HospitalComment on above:Performed By: #### [id number], [id number], [id number] #### [facility] (DEFAULT) [address] [place] [address] 74397Jtcakzbnp/100 WBC (Bld)0.1 %Low0.2-2.0[facility] Comment on above:Performed By: #### [id number], [id number], [id number] #### [facility] (DEFAULT) [address] [place] [address] 07422Npt Abs#0.0 m27Zqxsio1.0-0.4[facility] HospitalComment on above:Performed By: #### [id number], [id number], [id number] #### [facility] (DEFAULT) [address] [place] [address] 38492Haelqnibbcx/100 WBC (Bld)0.1 %Low0.9-4.0[facility] Comment on above:Performed By: #### [id number], [id number], [id number] #### [facility] (DEFAULT) [address] [place] [address] 15897Tjdxyapetqu (Bld) [#/Vol]0.4 a68Pid2.3-2.9[facility] HospitalComment on above:Performed By: #### [id number], [id number], [id number] #### [facility] (DEFAULT) [address] [place] [address] 72837Qudncrcvfdm/100 WBC (Bld)4 %Izv54-31Pqkiavvw Hospital Comment on above:Performed By: #### [id number], [id number], [id number] #### [facility] (DEFAULT) [address] [place] [address] 37301Tnri Abs#0.2 j07Sfxslj7.0-0.8[facility] HospitalComment on above:Performed By: #### [id number], [id number], [id number] #### [facility] (DEFAULT) [address] [place] [address] 16468Wyfb Abs#10.0 s84Nvop7.5-9.2[facility] HospitalComment on above:Performed By: #### [id number], [id number], [id number] #### [facility] (DEFAULT) [address] [place] [address] 28564Xypfsbnspbb/100 WBC (Bld)94 %Xjii83-20[facility] Comment on above:Performed By: #### [id number], [id number], [id number] #### [facility] (DEFAULT) [address] [place] [address] 69883Cdgwajplbt Noteon 75-15-3666Nfajxeopwv NotePatient: GRETCHEN DELATORRE Age: 69 years Sex: MALE [...] allergies Current medications: Home Medications (18) Active acetaminophen-oxycodone 325 mg-5 mg oral tablet 2 tab(s), [...] AAA (abdominal aortic aneurysm) / SNOMED CT 831995234 / Confirmed CAD (coronary artery disease) / SNOMED CT 51747192 / Confirmed Myocardial infarct / SNOMED CT 58657354 / Confirmed Resolved: CVA, old, cognitive deficits / SNOMED CT 2191127372 Histories Family History: Entire family history is negative. Procedure history: AAA - Abdominal aortic aneurysm (893561645) in 2012 at 62 Years. AAA - Abdominal aortic aneurysm (083022374) in 2005 at 55 Years. quaddruple cardiac byapss in 2005 at 55 Years. back surgery in 2004 at 54 Years. knee scope in 2004 at 54 Years. Comments: 04/27/2020 14:05 Abimbola Pickering RN right Hip arthroplasty (480705232) in 2004 at 53 Years. AAA - Abdominal aortic aneurysm (645904781) in 2003 at 52 Years. Social History [...] ECG interpretation: SR, occ PVCs, NSTWA. Plan [place] [employer]#(ASA) physical status classification: Class III. Anesthetic Preoperative Plan Anesthesia: General. . Anesthetic plan, risks, benefits, and alternatives discussed with the patient and/or family. Patient verbalized understanding. Informed consent was given. Consent was signed by the patient. [Electronically Signed on: 05/15/2020 08:26 EDT] Tom Casiano MD [Verified on: 05/15/2020 08:26 EDT] Tom Casiano MDOur [facility] of Mer[facility] w/ Auto Diffon 59-27-7282Dxyfvvnaqzd distribution width (RBC) [Ratio]12.1 %Ejbqqc03.5-15.0[facility] CenterComment on above:Performed By: #### [id number], [id number], [id number] #### [facility] (DEFAULT) [address] [place] [address] 87175Uhptllzkub (Bld) [Volume fraction]33.2 %Low34.8-51.9 [facility] CenterComment on above:Performed By: #### [id number], [id number], [id number] #### [facility] (DEFAULT) [address] [place] [address] 09193Sgbypqdsda (Bld) [Mass/Vol]11.5 g/dLLow11.8-17.7[facility] CenterComment on above:Performed By: #### [id number], [id number], [id number] #### [facility] (DEFAULT) [address] [place] [address] 19143Wce Diff?AutoNormalAshtabula [facility] Center HospitalComment on above: Performed By: #### [id number], [id number], [id number] #### [facility] (DEFAULT) [address] [place] [address] 95052QEI (RBC) [Entitic mass]32 ymFwdeet31-41Tdzftnum Hospital Comment on above:Performed By: #### [id number], [id number], [id number] #### [facility] (DEFAULT) [address] [place] [address] 99402NRQM (RBC) [Mass/Vol]35 g/qYOohdzc00-98Voirnpqx Hospital Comment on above:Performed By: #### [id number], [id number], [id number] #### [facility] (DEFAULT) [address] [place] [address] 47819DGK (RBC) [Entitic vol]92 nJDhehfe26-837Aogwvywy Hospital Comment on above:Performed By: #### [id number], 35450873, [id number] #### [facility] (DEFAULT) [address] [place] [address] 46321Lyutcfbs mean volume (Bld) [Entitic vol]9.5 fLNormal 6.3-10.2[facility] HospitalComment on above:Performed By: #### [id number], [id number], [id number] #### [facility] (DEFAULT) [address] [place] [address] 86796Watuzdxam (Bld) [#/Vol]205 d87Ydgctl327-249Sohslkvb HospitalComment on above:Performed By: #### [id number], [id number], [id number] #### [facility] (DEFAULT) [address] [place] [address] 71086XOI (Bld) [#/Vol]3.62 j56Bpg0.70-5.30[facility] Comment on above:Performed By: #### [id number], [id number], [id number] #### [facility] (DEFAULT) [address] [place] [address] 14898HCI (Bld) [#/Vol]10.6 e08Cqec3.5-10.5[facility] Comment on above:Performed By: #### [id number], 63888061, [id number] #### [facility] (DEFAULT) [address] [place] [address] 11326Qcsncnf and Physicalon 08-93-7568Wlucyon and Physical [id number]#1.00OTGTIFFNoalAshtabula County Medical Center HospitalMAGR Intraoperative Recordon 89-93-9266VHRD Intraoperative RecordMAGR Intra-Op Record Summary Primary Physician: Bairon Win DO Finalized Date/Time: 05/15/20 17:18:47 Pt. Name: GRETCHEN DELATORRE/Sex: 1950 MALE Med Rec #: [id number] Physician: Bairon Win DO Financial #: [id number] Pt. Type: O Room/Bed: [facility] [place]/1 Admit/Disch: 05/15/20 06:07:00 - Institution: Case Times [...] Role Performed Surgeon - Primary Anesthesiologist of Scaler Packer Record Time In 05/15/20 09:01:00 05/15/20 09:01:00 05/15/20 09:01:00 Time Out 05/15/20 11:20:00 05/15/20 11:20:00 05/15/20 11:20:00 Procedure Arthroplasty Total Arthroplasty Total Arthroplasty Total Hip(Right) Hip(Right) Hip(Right) Last Modified By: Ethel Gibson RN, Stephanie RN Sauer, Stephanie RN 05/15/20 14:15:50 05/15/20 14:15:50 05/15/20 14:15:50 Entry 4 Entry 5 Entry 6 Case Attendee Adina Guzman CST, Adkins, Brittany E CST Regina FUGITIVE DETECTIVE Role Performed Scrub Personnel Station Jailer Station Jailer Time In 05/15/20 09:01:00 05/15/20 09:01:00 05/15/20 [...] Performs skin preparation Im.270.1 Implements protective measures toprevent skin and tissue injury due to chemical [...] regulation A.40 Verifies presence of prosthetics or correctivedevices Im.280 Implements thermoregulation measures Im.60 Uses supplies and equipment within safe parameters Entry 1 Entry 2 Equipment Type FLOWTRON CALF CUFF REG FORCED WARM AIR Serial ?# [id number] Equipment Setting FACTORY DEFAULT 43 DEGREES [...] By: Pedro Edgar DO Size 54MM 58MM Atv Mechanic DePuy DEPUY DEPUY Catalog # Lot Number [id number] Expiration Date 03/02/30 04/02/30 Serial Number REF [id number] REF [id number] REF [id number] Device Identifier Human Readable PAUL Machine Readable PAUL MR Class Implant Usage Data Site Hip R Hip R Hip R Quantity 1 1 1 Reason for Explant Reason Not Retained Explant Disposition Environmental Lawyer Sterility External Indicator Result Internal Indicator Results [...] Bairon Win James Huddleston, James By: Pedro WHITE Pedro Edgar DO Size 38 ID 56OD 6.5MM X 25MM KA SIZE 11 Atv Mechanic DEPUY DEPUY DEPUY Catalog # Lot Number [id number] Expiration Date 12/31/24 10/02/29 07/03/24 Serial Number REF [id number] REF [id number] REF [id number] Device Identifier Human Readable PAUL Machine Readable PAUL MR Class Implant Usage Data Site Hip R Hip R Hip R Quantity 1 2 1 Reason for Explant Reason Not Retained Explant Disposition Environmental Lawyer Sterility External Indicator Result Internal Indicator Results Outcome Met (O.30) Yes Yes Yes Last Modified By: Ethel Gibson RN, Stephanie RN Sauer, Stephanie RN 05/15/20 15:23:55 05/15/20 15:23:55 05/15/20 15:23:55 Entry 7 Procedure Arthroplasty Total Hip(Right) Implant Action Implant Description DEPUY M SPEC METAL FEMORAL HEAD Implant Information Implant/Explant 05/15/20 10:25:00 Date/Time Implanted/Explanted Bairon Win By: Pedro Size 036MM 10/16 TAPER Atv Mechanic DEPUY Catalog # Lot Number [id number] Expiration Date 07/03/24 Serial Number REF 1365-51-000 Device Identifier Human Readable PAUL Machine Readable PAUL MR Class Implant Usage Data Site Hip R Quantity 1 Reason for Explant Reason Not Retained Explant Disposition Environmental Lawyer Sterility External Indicator Result Internal Indicator Results [...] Signatures Signed By: Ethel Gibson RN 05/15/20 17:18[facility] PACU Recordon [id number] PACU RecordMAGR PACU Record Summary Primary Physician: Bairon Win DO Finalized Date/Time: 05/15/20 12:19:32 Pt. Name: NANDINIGRETCHEN./Sex: 1950 MALE Med Rec #: [id number] Physician: Bairon Win DO Financial #: [id number] Pt. Type: D Room/Bed: 221/1 Admit/Disch: 05/15/20 06:07:00 - Institution: PACU Case Times MAGR Entry 1 In PACU I 05/15/20 11:15:00 Discharge from PACU 05/15/20 12:05:00 I Last Modified By: Francesca Pastrana RN 05/15/20 12:19:29 Finalized By: Francesca Pastrana RN Document Signatures Signed By: Francesca Pastrana RN 05/15/20 12:19[facility] Preoperative Recordon [id number] Preoperative RecordMAGR Pre-Op Record Summary Primary Physician: Bairon Win DO Finalized Date/Time: 05/15/20 13:36:44 Pt. Name: GRETCHEN DELATORRE /Sex: 1950 MALE Med Rec #: [id number] Physician: Bairon Win DO Financial #: [id number] Pt. Type: O Room/Bed: 221/1 Admit/Disch: 05/15/20 [...] ready for surgery. The patient remains free froms/s of injury. Patient/family express understanding of plan of care and participate in decisions affectinghis or her perioperrative plan of care. Allergies documented appropriately. Patient identifiers and consent correct. General Comments: Denies chest pain, shortness of breath or illnessess. Denies pacemaker/defib. Denies sleep apnea. Finalized By: Francesca Pastrana RN Document Signatures Signed By: Francesca Pastrana RN 05/15/20 13:36[facility] HospitalNutrition Noteon 05-15-2020 Nutrition NotePt admitted for planned Rt total hip surgery; [...] supplements, vitamins/ minerals already in place. To follow.[facility] HospitalOperative Report - Surgeon/Physicianon 05-15-2020 Operative Report - Surgeon/PhysicianPreoperative diagnosis: Advanced arthritic changes with degenerative changes [...] flattened. The acetabulum was eroded in elliptical fashion.There was profound synovitis filling the joint. Procedure summary: Patient was brought to the operative suite he was given a general anesthetic he was placed in the lateral decubitus position and the right hip was sterilely prepped and draped in usual fashion. A timeout was taken. The incision was centered over the greater trochanter and dissection was carried down through layerfat and then through the fascia slava. The bursa was excised and then the anterior one third of the gluteus medius and minimus were detached from the greater trochanter leaving a cuff of tissue for reattachment later. The capsule was incised and the hip was easily dislocated due to its misshapen femo ral head had a tendency to slide right [...] impacted a 56 mm gription cup ( [email or web address]) this was secured with 2 6.5 mm acetabular screws. A 36x 56 liner was impacted into place. Was checked for integrity. My attention was turned back towards the femur the canal was opened with a box osteotome followed by canal finder and a rasp and then broaching sequentially up to 11. A size 10 recessed significantlyand a size 11 was markedly tight. I [...] both with saline and then also diluted Esmond dine mixture. The fascial planes were injected with a joint cocktail consisting of Toradol ropivacaine clonidine epinephrine and saline. A total of 60 cc. The gluteus medius was repaired with a #5 Ethibond suture.The fascia slava was closed with 0 Vicryl and a running #2 Quill. The fat and subcutaneous layers were closed with 0 Vicryl and then ultimately 3 oh Quill. Steri-Strips and benzoin were applied. Sterile dressings were applied. He was transported to the recovery room in stable condition. [Electronically Signed on: 05/15/2020 12:17 EDT] Bairon Win DO [Verified on: 05/15/2020 12:17 EDT] [facility] Pharmacy NoteI have personally reviewed the patient's current home medication list including, prescription medications, OTC products, vitamins and supplements. Home medications reviewed upon admission as follows: Active Medications acetaminophen-oxycodone: 2 tab(s), PO, q6hr, PRN: for pain, 0 Refill(s), Refills: 0 ascorbic acid: 500 mg = 1 tab(s), PO, Daily, 30 tab(s), 0 Refill(s), Refills: 0 aspirin: 81 mg = 1 tab(s), PO, Daily, 90 tab(s), 0 Refill(s), Refills: 0 atenolol: 50 mg = 1 tab(s), PO, Daily, 90 tab(s), 0 Refill(s), Refills: 0 cholecalciferol: 25 mcg, PO, Daily, 0 Refill(s), Refills: 0 chondroitin-glucosamine: 2 tab, PO, Daily, 0 Refill(s), Refills: [...] cap(s), PO, TID, 90 cap(s), 0 Refill(s), Refills:0 potassium gluconate: 550 mg = 1 tab(s), [...] Tahira Reyna [Verified on: 05/15/2020 15:26 EDT] Radha ReynaramonDunlap Memorial HospitalXR Hip Complete Righton 83-95-0772JB Hip Complete RightEXAM: Right hip HISTORY: Postoperative evaluation. COMPARISON STUDY: None TECHNIQUE: 2 portable views of the right hip were obtained. FINDINGS: The prosthesis is in anatomic alignment and shows no evidence of loosening. There are the expected postsurgical changes in the soft tissues. IMPRESSION: Normal postoperative appearance. Final Dictated by: Haroon Javier Dictated DT/TM: 05/15/20 11:59 Signed (Electronic Signature): Haroon Javier 05/15/20 11:59 a Technologist: ISRRAELSumma Health Barberton CampusABORhon 01-77-1460UBD and [facility] Nom (Bld)Hx Check: Not Found Anti-A: 4+ Anti-B: 0 Anti-D: 4+ DCon: NT A1: 0 B: 4+ ABORh Interp: A POSAshtabula County Medical Center HospitalComment on above:Performed By: #### [id number] #### [facility] (DEFAULT) [address] [place] [address] 30411VSYLh Retypeon 50-21-2056EVL and [facility] Nom (Bld)Ordered by Discern. Anti-A: 4+ Anti-B: 0 Anti-D: 4+ DCon: NT A1: 0 B: 4+ ABORh Retype: A POSAshtabula County Medical Center HospitalComment on above:Performed By: #### [id number] #### [facility] (DEFAULT) [address] [place] [address] 17386GJSQ Gelon 39-51-1489QWRN GelNegativeFirelands Regional Medical Center South Campus HospitalComment on above:Performed By: #### [id number] #### [facility] (DEFAULT) [address] [place] [address] 13868Nzoye Bank IDon [id number] Bank IDBBID: [id number] [facility] HospitalComment on above:Performed By: #### [id number] #### [facility] (DEFAULT) [address] [place] [address] 87502E&Hon 92-34-5168Yqjukcixax (Bld) [Volume fraction]38.3 % Dfmwig24.8-51.9[facility] HospitalComment on above:Performed By: #### [id number] #### [facility] (DEFAULT) [address] [place] [address] 75024Svtnsvpkxq (Bld) [Mass/Vol]13.3 g/kCPjbrlr82.8-17.7 [facility] HospitalComment on above:Performed By: #### [id number] #### [facility] (DEFAULT) [address] [place] [address] 73582EUZN-YfT-8 (COVID-19) PCRon 51-48-0466HTJCD-19 PCRNot DetectedNormalNot DetectedAshtabula County Medical Center HospitalComment on above:Performed By: #### [id number] #### [facility] (DEFAULT) [address] [place] [address] 41495Pqtocnql Note - Nurseon 80-16-4061Pgwovaem Note - Nurse Spoke with pt regarding arrival time of 0600 and NPO after midnight. Pt instructed he will need to be tested for COVID on Friday when he comes in for type and screen. Verbalized understanding. [Electronically Signed on: 05/12/2020 09:38 EDT] Sara Alvarez RN [Verified on: 05/12/2020 09:38 EDT] Sara Alvarez RNrmalMagruder HospitalCoding Summaryon 17-90-7052Hlkxxz SummaryCODING DATE: 05/10/[address] [facility] STATUS: Home PAYOR: Medicare MC APC [...] By: Eugenie George Date Saved: 05/10/2020 01:27 [facility] CenterBilling Authorizationson 79-14-9323Vdwzqox Authorizations [id number]#1.00[facility] Medication Managementon 62-66-6022Hulniffkdq Management [id number]#1.00[facility] Coding Summaryon 79-67-3543Zreime SummaryCODING DATE: 05/08/2020 [facility] STATUS: Home PAYOR: Medicare MC [...] By: Eugenie George Date Saved: 05/08/2020 01:38 [facility] CenterProgress Note - Nurseon 93-60-4981Hmzzboxy Note - NursePAT review done per Dr. Willie villarreal Cardiac workup, no orders received. [Electronically Signed on: 05/02/2020 07:05 EDT] Warga, Francesca RN [Verified on: 05/02/2020 07:05 EDT] Francesca Pastrana RNDunlap Memorial HospitalProgress Note - NurseDr. Burgos reviews PAT information and testing results. Request copy of the stress test and last ca rdiology office notes. Call made to [facility], [facility]. Requested above information. Release of information faxed for records request. [Electronically Signed on: 05/01/2020 09:47 EDT] Maritza Teresa RN [Verified on: 05/01/2020 09:47 EDT] Maritza Teresa RNDunlap Memorial HospitalC MRSA Screenon 04-28-2020C MRSA ScreenNegativeFirelands Regional Medical Center South Campus HospitalComment on above:Performed By: #### [id number] #### [facility] (DEFAULT) [address] [place] [address] 88772Lbcwkskz Orderson 77-12-5360Lyhxbylc Orders [id number]#1.00OTGTIFFDunlap Memorial Hospital.Auto Diff 1on 43-33-2768Qhhx Gregg %9 %Normal1-12[facility] HospitalComment on above: Performed By: #### [id number], [id number], [id number] #### [facility] (DEFAULT) [address] [place] [address] 48602Ktvi Abs#0.0 n91Ngnxof9.0-0.2[facility] HospitalComment on above:Performed By: #### [id number], [id number], [id number] #### [facility] (DEFAULT) [address] [place] [address] 06179Jchwaclcf/100 WBC (Bld)0.4 %Normal0.2-2.0[facility] Hospital Comment on above:Performed By: #### [id number], [id number], [id number] #### [facility] (DEFAULT) [address] [place] [address] 58701Kgo Abs#0.1 i53Pdcnbo1.0-0.4[facility] HospitalComment on above:Performed By: #### [id number], [id number], [id number] #### [facility] (DEFAULT) [address] [place] [address] 37261Celipdoatsv/100 WBC (Bld)1.7 %Normal0.9-4.0[facility] HospitalComment on above:Performed By: #### [id number], [id number], [id number] #### [facility] (DEFAULT) [address] [place] [address] 65915Nlkvfixndaz (Bld) [#/Vol]1.6 e46Kzpgao5.3-2.9[facility] HospitalComment on above:Performed By: #### [id number], [id number], [id number] #### [facility] (DEFAULT) [address] [place] [address] 72953Gxxoegrthmv/100 WBC (Bld)20 %Bvhorm35-02Jkztvvuc Hospital Comment on above:Performed By: #### [id number], [id number], [id number] #### [facility] (DEFAULT) [address] [place] [address] 35745Yjqo Abs#0.7 n84Bdecyk3.0-0.8[facility] HospitalComment on above:Performed By: #### 6403337, [id number], [id number] #### [facility] (DEFAULT) [address] [place] [address] 96445Gomn Abs#5.2 p81Ihmwog0.5-9.2[facility] HospitalComment on above:Performed By: #### [id number], [id number], [id number] #### [facility] (DEFAULT) [address] [place] [address] 38557Kzctxzkkmev/100 WBC (Bld)69 %Nrylad77-76Hpslpgiv Hospital Comment on above:Performed By: #### [id number], 16893930, [id number] #### [facility] (DEFAULT) [address] [place] [address] 50349IFR Standardon 96-91-0049lAWF Non AA>60[facility] Comment on above:Performed By: #### [id number], [id number], [id number] #### [facility] (DEFAULT) [address] [place] [address] 64520cOMJ AA>60[facility] CenterComment on above:Result Comment: Chronic Kidney disease could be indicated at eGFRs of less than 60 ml/min/1.73m2. Kidney Failure is indicated at less than 15 ml/min/1.73m2 Performed By: #### [id number], [id number], [id number] #### [facility] (DEFAULT) [address] [place] [address] 02041Kzgmh gap [Moles/Vol]12.0 mmol/LNormal5.0-19.0[facility] CenterComment on above:Performed By: #### [id number], [id number], [id number] #### [facility] (DEFAULT) [address] [place] [address] 72982Blkbgft [Mass/Vol]9.7 mg/dLNormal8.9-10.3MVan [facility] Comment on above:Performed By: #### [id number], [id number], [id number] #### [facility] (DEFAULT) [address] [place] [address] 75406Jbguynzn [Moles/Vol]106 mmol/QEpkryv404-878Tyydyigp HospitalComment on above:Performed By: #### [id number], [id number], [id number] #### [facility] (DEFAULT) [address] [place] [address] 52160HB8 [Moles/Vol]23 mmol/EIprfhv26-37Qouebmdn Hospital Comment on above:Performed By: #### [id number], [id number], [id number] #### [facility] (DEFAULT) [address] [place] [address] 82807Xqbsqzknnz [Mass/Vol]0.72 mg/dLLow0.90-1.30Maselect [facility] HospitalComment on above:Performed By: #### [id number], [id number], [id number] #### [facility] (DEFAULT) [address] [place] [address] 12056Hfjzkjy [Mass/Vol]85.0 mg/pIUbrgna58.0-118.0[facility] HospitalComment on above:Performed By: #### [id number], [id number], [id number] #### [facility] (DEFAULT) [address] [place] [address] 87512Eujeliiyyc [Osmolality]274 mOsm/[facility] HospitalComment on above:Performed By: #### [id number], [id number], [id number] #### [facility] (DEFAULT) [address] [place] [address] 61998Lubrwctyp [Moles/Vol]4.4 mmol/LNormal3.6-5.1[facility] HospitalComment on above:Performed By: #### [id number], [id number], [id number] #### [facility] (DEFAULT) [address] [place] [address] 63467Ygtuck [Moles/Vol]137.0 mmol/CZmyphr899.0-144.0[facility] HospitalComment on above:Performed By: #### [id number], [id number], [id number] #### [facility] (DEFAULT) [address] [place] [address] 22085Vdvh nitrogen [Mass/Vol]16 mg/dLNormal8-26[facility] HospitalComment on above:Performed By: #### [id number], [id number], [id number] #### [facility] (DEFAULT) [address] [place] [address] 80421Jccr nitrogen/Creatinine [Mass ratio]22.0 mg/mgHigh 4.6-16.2[facility] HospitalComment on above:Performed By: #### [id number], [id number], [id number] #### [facility] (DEFAULT) [address] [place] [address] 44603FLC w/ Auto Diffon 23-74-7903Udvpdmtidqq distribution width (RBC) [Ratio]12.2 %Rsjkyz34.5-15.0[facility] CenterComment on above: Performed By: #### [id number], [id number], [id number] #### [facility] (DEFAULT) [address] [place] [address] 66704Gsuthsksra (Bld) [Volume fraction]38.9 %Qmakot62.8-51.9 [facility] CenterComment on above:Performed By: #### [id number], [id number], [id number] #### [facility] (DEFAULT) [address] [place], [place] [address]Hemoglobin (Bld) [Mass/Vol]13.5 g/bWYqkfim99.8-17.7 [facility] CenterComment on above:Performed By: #### [id number], [id number], [id number] #### [facility] (DEFAULT) [address] [place] [address] 98456Tpa Diff?AutoNormalOhio State University Wexner Medical CenterComment on above: Performed By: #### [id number], [id number], [id number] #### [facility] (DEFAULT) [address] [place] [address] 55598SKV (RBC) [Entitic mass]32 bzSyqulf94-44Ecbejhxp Hospital Comment on above:Performed By: #### [id number], [id number], [id number] #### [facility] (DEFAULT) [address] [place] [address] 56513APXK (RBC) [Mass/Vol]35 g/hLXkabgc87-73Jmoxpaqz Hospital Comment on above:Performed By: #### [id number], [id number], [id number] #### [facility] (DEFAULT) [address] [place] [address] 33117ZVF (RBC) [Entitic vol]91 jBSmetxv45-439Bxorjdqh Hospital Comment on above:Performed By: #### [id number], [id number], [id number] #### [facility] (DEFAULT) [address] [place] [address] 70199Ijocawpf mean volume (Bld) [Entitic vol]9.3 fLNormal 6.3-10.2MVan Wert County HospitalComment on above:Performed By: #### [id number], [id number], [id number] #### [facility] (DEFAULT) [address] [place] [address] 27231Mszvwawiw (Bld) [#/Vol]220 m92Ppdmrk628-368Qadfxjqz HospitalComment on above:Performed By: #### [id number], [id number], [id number] #### [facility] (DEFAULT) [address] [place] [address] 26262BSQ (Bld) [#/Vol]4.26 i56Zyxzkk8.70-5.30[facility] Comment on above:Performed By: #### [id number], [id number], [id number] #### [facility] (DEFAULT) [address] [place] [address] 41011MMS (Bld) [#/Vol]7.6 h58Bduhbg6.5-10.5[facility] Comment on above:Performed By: #### [id number], [id number], [id number] #### [facility] (DEFAULT) [address] [place] [address] 02324Tramoois Orderson 12-25-4688Hcthsbye Orders [id number]#1.00OTGTIFFNoUpper Valley Medical CenterUA w Culture if Ind Standardon 22-13-8814Kmldqwcgyu UADunlap Memorial Hospital Comment on above:Performed By: #### [id number] #### [facility] (DEFAULT) [address] [place] [address] 01151Yiwoc (U)YellowNormalMagruder HospitalComment on above: Performed By: #### [id number] #### [facility] (DEFAULT) [address] [place] [address] 72442Pvvojqs?NoNormalMagruder HospitalComment on above: Performed By: #### [id number] #### [facility] (DEFAULT) [address] [place] [address] 44996Yhtjnfc (U) [Mass/Vol]NegativeNormalMagruder Hospital Comment on above:Performed By: #### [id number] #### [facility] (DEFAULT) [address] [place] [address] 97644Dnlpbsh Ql (U)NegativeNormalMagruder HospitalComment on above:Performed By: #### [id number] #### [facility] (DEFAULT) [address] [place] [address] 08721Pujzv?Not IndicatedNormalMagruder HospitalComment on above:Performed By: #### [id number] #### [facility] (DEFAULT) [address] [place] [address] 69035CT BilirubinNegativeNormalMagruder HospitalComment on above:Performed By: #### [id number] #### [facility] (DEFAULT) [address] [place] [address] 73216GT BloodNegativeNormalNEGATIVEMagruder HospitalComment on above:Performed By: #### [id number] #### [facility] (DEFAULT) [address] [place] [address] 97132WX ClarityCLEARNormalCLEARMagruder HospitalComment on above:Performed By: #### [id number] #### [facility] (DEFAULT) [address] [place] [address] 57434KE Leuk EstNegativeNormalNEGATIVEMagruder HospitalComment on above:Performed By: #### [id number] #### [facility] (DEFAULT) [address] [place] [address] 11836RL NitriteNegativeNormalNEGATIVEMagruder HospitalComment on above:Performed By: #### [id number] #### [facility] (DEFAULT) [address] [place], [place] [address]UA pH6.7Qbslye7-2Fvzsxbhm HospitalComment on above: Performed By: #### [id number] #### [facility] (DEFAULT) [address] [place] [address] 08171YQ ProteinNegativeNormalNEGATIVEAshtabula [facility] Medical Center HospitalComment on above:Performed By: #### [id number] #### [facility] (DEFAULT) [address] [place], [place] [address]UA Spec Grav<=1.988Cmfmow5.001-1.035[facility] Comment on above:Performed By: #### [id number] #### [facility] (DEFAULT) [address] [place], [place] [address]UA Urobilinogen0.2 mg/dLNormal0.2-1.0[facility] Comment on above:Performed By: #### [id number] #### [facility] (DEFAULT) [address] [place], [place] [address]Urine SourceClean CatchNormalOhio State University Wexner Medical CenterComment on above:Performed By: #### [id number] #### [facility] (DEFAULT) [address] [place] [address] Vital Signs Date TimeVital SignValuePerforming YbagcjvceDutctheg36-30-2469 13:41-0400Blood Pressure LocationMichael NILL [facility] Hzvpsoem34-11-4531 13:41-0400Diastolic blood gbddyxyz18 mm[Hg]Haroon NILL [facility] Hrguaelr99-77-6512 13:41-0400Heart rate 76 /minMichael NILL [facility] Nglsvljg36-19-9913 13:41-0400 Respiratory rate16 /minMichael NILL [facility] Wwtxoyws84-62-7330 13:41-0400Systolic blood iccrrvmm483 mm[Hg]Haroon NILL General Surgery [facility] Encounters Encounter DateEncounter TypeCare ProviderFacilityStart: 10-18-2024 End: 56-53-2597yiktwtfzmtKABNOQ [facility] Start: 03-02-2024 End: 45-17-1427ydocnrjpbhSigzfnz R NILLFacility:[facility]: 03-02-2024 End: 11-28-2502Slrqlmm encounter procedureMichael R NILL [phone]-Okelr General Surgery [facility] Start: 03-02-2024 End: 30-88-3650axrwoynvaqTmwrnhd R NillFacility:[facility]: 02-18-2024 End: 90-05-6884neaqpefybfYfjfqzz R NILLFacility:[facility]Start: 02-18-2024 End: 47-81-5710Emmkffy encounter procedureMichael R NILL General Surgery Nill/[facility] [place] Start: 03-19-2023 End: 83-49-3165bwlaxmlqohHQ DAKSHA OREILLY .Facility:H3Zixbk: 03-18-2023 End: 47-16-7071cwyruufnggJY DAKSHA HOY .Facility:X0Iooaj: 03-18-2023 End: 30-03-5928zewspwdznzCHWWNLE TUSHANNAERFacility:Q4Ypdwv: 08-16-2022 End: 72-89-4060ipdqbihbklSN BRYCE MOUKARBELFacility:W5Mmphf: 06-29-2022 ambulatoryDR BRYCE MOUKARBELFacility:H1 Procedures DateProcedureProcedure DetailPerforming ClinicianStart: 21-22-1726HYD screening AMBERMARTA Deleonment on above:Performed By: #### CMP, CK, LIPID #### [facility] [address] [place] [address] Dr. Tyrell CasillasStart: 74-89-4823Zsdhsg of joint of right hipMichael NILL Start: 67-93-2365Yptgsuma artery bypass grafts x 4 Haroon NILL Start: 41-42-8896Opdbjm of joint of left hipMichael NILL Arthroscopy of kneeMichael NILL ColonoscopyMichael NILL Insertion of inferior vena caval filterMichael NILL LaminectomyMichael NILL Lysis of adhesionsMichael NILL Repair of recurrent incisional herniaMichael NILL Repair of ventral herniaMichael NILL Comment on above:x 3 Immunizations Immunization DateImmunizationNotesCare SnzjxbswUiuktmuy54-03-2671kmhltlikg virus vaccine, unspecified formulationMichael NILL General Surgery Hldgrxaf97-24-1349BRJA-KlR-5 (COVID-19) mRNA BNT-162b2 vaxMichael NILL General Surgery Slnwiswy95-09-2215LUUE-AfI-9 (COVID-19) mRNA BNT-162b2 vaxMichael NILL General Surgery [facility] Payers DatePayer CategoryPayerPolicy [id number] 2.16.840.1.143693.3.57[id number] 2.16.840.1.042961.3.57[id number] 2.16.840.1.377082.3.57[id number] 2.16.840.1.064128.3.57[id number] 2..0.1.035391.3.57[id number] 2..0.1.1[id number] 2.0.1.445140.3.579.2.531 Social History DateTypeDetailFacilityStart: 70-48-3189Soswsgv smoking statusNever smoked tobacco (finding)General Surgery [place]Tobacco smoking statusNeverGeneral Surgery BellueSex Assigned [facility] Functional Status QbfoCxqybzptrtGjmxcgCxoqkwen69-33-3495Bumwfsdoeq StatusN/AGeneral Surgery [place] Progress note 10-18-2024 Note Date & XwmxRrguCabklsas89-10-1291 NoteUT Cardiology - [facility] Subjective Gretchen Delatorre is a [...] Visual field defect Coronary artery disease involving [place] coronary artery of [place] heart without angina pectoris History of coronary [...] PMH- CAD s/p CABG, HTN, HPL, Cardiomyopathy, [place] in 1996 PSH- CABG x4 2005, Rt [...] by oral route., Di (more content not included)...[facility] Clinical Note 02-18-2024 Note Date & AfltLlyyFrydmufh93-55-7114 NoteChief Complaint consultation for skin lesion HPI Staff 73 year old male presents on consultation from Dr. Oreilly for right chest wall mass. Reports mass has been present for several years. Reports gradual increase in size. Denies soreness or tenderness. Denies bleeding or drainage. History of Present Illness 73 yo male with h/o CAD, [place], htn, hyperlipidemia, CVA, degenerative disc disease, lumbar, [...] swallowing difficulties, no hearing loss, no ear infection(s),no nose bleeds. Cardiovascular: normal blood pressure, no [...] Recorded SARS-CoV-2 (COVID-19) mRNA BNT-162b2 vax 02/06/2021 RecordedCherrington HospitalComment on above:Result Comment: Electronically Signed By: AUDI JAIME, Haroon Ellison\.br\Date and Time Signed: 02/18/24 15:21 EDT Evaluation + Plan note Note Date & TypeNoteFacilityEvaluation + Plan note Future Appointments Appointment Date:03/02/2024 03:00:00 PM Scheduled Provider:Haroon DON MD Location:[facility] Appointment Type: Procedure 30 General Surgery [facility] Hospital course Narrative Note Date & TypeNoteFacilityHospital course Narrative No data available for this section General [facility] [place] [facility] Discharge instructions Note Date & TypeNoteFacilityHospital Discharge instructions No data available for this section General Surgery [place] Progress note Note Date & TypeNoteFacilityProgress note No data available for this section General Surgery [facility] Summary Purpose Family History No Family History [...] Advanced Directives Records Found Hospital Course Note [facility] Clinical Discharge Summary PERSON INFORMATION Name GRETCHEN DELATORRE Age 69 Years 1950 Sex MALE Language Occitan PCP DAKSHA OREILLY Marital Status Med Service Observation Acct# Arrival 05/15/2020 06:07:00 Visit Reason RIGHT TOTAL HIP Acuity LOS Address: [address] [place] [address] [address] [facility] [address] Comment: PROVIDER INFORMATION VITALS INFORMATION Vital Sign [...] section and content) DATE CREATED AUTHOR 07/26/2020 [facility] DATE CREATED AUTHOR AUTHOR'S ORGANIZ ATION 03/20/2023 [facility] DATE CREATED AUTHOR AUTHOR'S ORGANIZ ATION 03/05/2024 [facility] DATE CREATED AUTHOR AUTHOR'S ORGANIZ ATION 03/06/2024 [facility] DATE CREATED AUTHOR AUTHOR'S ORGANIZ ATION 04/09/2025 [facility] Patient Care team informatio n (unrecognized section and content) Personnel Name: Daksha Oreilly MD Address: Address: [address] [place] [address] Personnel Name: Daksha Oreilly MD Address: Address: [address] [place] [address] FOR RECORDS PERTAINING TO PATIENTS WHO ARE [...] BE BASED ON THE PRIMARY CLINICAL RECORDS. [employer] provides no warranty or guarantee of the accuracy or completeness of information in this document.
--- OUTSIDE RECORDS SUMMARY | 2025-09-03 12:21 | XMS_ITS | Clinical Summary ---
Author Organization Omniture tem Address [id number] [address] [place] [address] Care Team Providers Care Juvenile Officer Name Role Phone Vik Oreilly MD Primary Care Provider [phone] Allergies No known active allergies Medications MedicationSigDispense QuantityRefillsLast FilledStart DateEnd DateStatus oxyCODONE-acetaminophen (PERCOCET) 5-325 mg per tablet Take 1 tablet by mouth every 4 (four) hours as needed for pain.Active magnesium 30 mg tablet Take 30 mg by mouth 2 (two) times a day.Active ivgolusy-qkdn-NE-calcium &mins (THERAGRAN-M) 9 mg iron-400 mcg tablet Take 1 tablet by mouth daily.Active gentamicin 376 mg in sodium chloride 0.9 % 100 mL IVPB Infuse 376 mg into a venous catheter daily. 1 each 05/27/2020Active Additional Information Patient not taking.Reported on 07/06/2020 atenoloL (TENORMIN) 50 mg tablet 06/03/2020Active LISINOPRIL ORAL Take 5 mg by mouth daily.Active Active Problems ProblemNoted DateDiagnosed DateCellulitis of hip, right05/25/2020 Family History Medical HistoryRelationNameCommentsMental illnessMotherMental illnessPaternal AuntRelationNameStatusCommentsMotherPaternal Aunt Social History Tobacco UseTypesPacks/DayYears UsedDateSmoking Tobacco: NeverSmokeless Tobacco: Never Tobacco Cessation:Counseling Given: Yes Alcohol UseStandard Drinks/WeekCommentsYes0 (1 standard drink = 0.6 oz pure alcohol)Social Connection and Isolation PanelAnswerDate RecordedIn a typical week, how many times do you talk on the phone with family, friends, or neighbors?More than three times a week05/25/2020How often do you get together with friends or relatives?More than three times a week05/25/2020How often do you attend holiness or confucianism services?Never05/25/2020Do you belong to any clubs or organizations such as holiness groups, unions, fraternal or athletic groups, or school groups?Yes05/25/2020How often do you attend meetings of the clubs or organizations you belong to?1 to 4 times per year05/25/2020Are you , , , , never , or living with a partner? 05/25/2020AUDIT-CAnswerDate RecordedQ1: How often do you have a drink containing alcohol?Monthly or less05/25/2020Q2: How many drinks containing alcohol do you have on a typical day when you are drinking?1 or Q3: How often do you have six or more drinks on one occasion?Never05/25/2020Overall Financial Resource Strain (CARDIA)AnswerDate RecordedHow hard is it for you to pay for the very basics like food, housing, medical care, and heating?Not hard at all 05/25/2020PHQ-2AnswerDate RecordedTotal Yehdq600[facility] [place] [facility] - Occupational Stress QuestionnaireAnswerDate RecordedDo you feel stress - tense, restless, nervous, or anxious, or unable to sleep at night because yourmind is troubled all the time - these days?Not at all05/25/2020 Exercise Vital SignAnswerDate RecordedOn average, how many days per week do you engage in moderate to strenuous exercise (like a brisk walk)?0 days05/25/2020On average, how many minutes do you engage in exercise at this level?0 min 05/25/2020PRAPARE - TransportationAnswerDate RecordedIn the past 12 months, has lack of transportation kept you from medical appointments or from getting medications?Patient /23/2020In the past 12 months, has lack of transportation kept you from meetings, work, or from getting things needed for daily living?Patient qisadjfg36/23/2020ChildcareAnswerDate RecordedDo problems getting child watch attendant make it difficult for you to work or study?No05/25/2020 EmploymentAnswerDate RecordedDo you need help finding a local career center and/or a training program?No05/25/2020Purpose - LifeAnswerDate RecordedPurpose and direction in bbspPsxoccl38/11/2021Sex and Gender InformationValueDate RecordedSex Assigned at BirthNot on fileLegal JxcHyiy6806/08/2015 11:26 AM EDT Gender IdentityNot on fileSexual OrientationNot on file Last Filed Vital Signs Vital SignReadingTime TakenCommentsBlood Pskbbcya063/7409 1:13 PM EDT Zzxcq9319 1:13 PM CXQLsdclxvomsa38.9 ??C (98.4 ??F)07/06/2020 1:13 PM EDTRespiratory Qgfk095907/06/2020 1:13 PM EDTOxygen Aebdvnjlcy50%06/15/2020 1:00 PM EDTInhaled Oxygen Concentration--Uwkmoe75.7 kg (193 lb 6 oz)07/06/2020 1:13 PM KRW144 lbs 6 rtYdkqxi396.2 cm (5' 7.01 )06/14/2020 1:12 PM EDTBody Mass Index 30.2808 1:12 PM EDT Plan of Treatment Health MaintenanceDue DateLast DoneCommentsDepression Uxuwucrtv63/02/1965Tobacco Cwvvmvhyd78/02/1965Adult BMI Yzkdopvvv02/02/1971DTaP,Tdap and Td Vaccines (1 - Tdap)1971Zoster (Shingles) Vaccine (1 of 2)2002Fall Risk Screening 2017Influenza Yoqcojj9907/04/2025 Goals GoalPatient Goal TypeAssociated ProblemsRecent ProgressPatient-Stated?Author Home Loli Key LSW Note: Evaluation of progress towards goal: Safe dc transition from hospital to home with family support and NOMS PT. Medical Devices Not on file Insurance * Guarantor: Arsh Parmar AAccount TypeRelation to PatientDate of BirthPhone Billing AddressPersonal/EhxvxlGcau18/02/1951 [address] [place] [phone] Advance Directives * Full Code (Latest Code Status on File) Date ActivatedDate InactivatedComments05/25/2020 6:25 PM05/27/2020 7:34 PM Care Teams Team MemberRelationshipSpecialtyStart DateEnd Date Vik Oreilly MD PCP - GeneralFamily Medicine05/25/20
--- OUTSIDE RECORDS SUMMARY | 2025-09-03 12:21 | XMS_ITS | Clinical Summary ---
Author Organization [facility] Address [address] [place] [address] Care Team Providers Care Commercial Finance Analyst Name Role Phone Vik Oreilly MD Primary Care Provider [phone] Allergies No known active allergies Medications MedicationSigDispense QuantityRefillsLast FilledStart DateEnd DateStatus aspirin 81 mg EC tablet Take 1 tablet every day by oral route.Active atenolol (Tenormin) 50 mg tablet Take 1 tablet by mouth in the morning.Active ferrous sulfate 325 (65 Fe) MG tablet Take 1 tablet every day by oral route.Active potassium gluconate 550 mg (90 mg) tablet Take 1 tablet every day by oral route.Active cholecalciferol (Vitamin D-3) 25 MCG (1000 units) tablet 1 (one) time each day at the same time.Active levothyroxine (Synthroid, Levoxyl) 50 mcg tablet Take 50 mcg by mouth before breakfast.4Active lisinopril 20 mg tablet Indications:Essential hypertensionTAKE 1 TABLET BY MOUTH IN THE MORNING 90 tablet 304/5Active rosuvastatin (Crestor) 10 mg tablet Indications:Coronary artery disease involving [place] coronary artery of [place] heart without angina pectoris,Hyperlipemia, mixedTAKE 1 TABLET BY MOUTH AT BEDTIME 90 tablet 3085Active ezetimibe (Zetia) 10 mg tablet Indications:Acute myocardial infarction of inferior wall (CMS/HCC)Take 1 tablet (10 mg) by mouth in the morning. 90 tablet 3095096Active Active Problems ProblemNoted DateDiagnosed DateBMI 33.0-33.9,adult10/18/2024Morbid obesity 10/18/2024Skin tag10/18/2024History of total hip ncrzsnutzoo64 Primary osteoarthritis of right hip/10/2023Spinal stenosis of lumbar gvnqro1301/30/2023Sequelae of cerebral aafwxtkcqm19/30/2023rimary localized osteoarthritis of pelvic region and thigh01/30/2023resence of right artificial hip joint01/30/20234377Gqlxacuyxlwsyz52/30/2023Occult blood in eyokiv9501/30/2023 Difficulty ykcrisl2001/30/2023egeneration of intervertebral disc of lumbar region 01/30/2023erebrovascular accident (CVA)01/30/2023bnormal gait01/30/2023 Abdominal aortic aneurysm without ahmfoqt3901/30/20237566Laffgjfvohzh56/30/2023 Yyvrvmnt43/30/2023oronary artery disease involving [place] coronary artery of [place] heart without angina uctbsckh35/17/2022History of coronary artery bypass graft08/19/2022Essential friazrgjsihc32/17/2022ellulitis of hip, right 05/25/2020MGUS (monoclonal gammopathy of unknown significance)06/28/2013cute myocardial infarction of inferior wall05/19/20134647Uyzaqgtvdnqnoe33/17/2013 Mospjjvatjxbcr71/17/2013Old myocardial jpzrevchtr90/17/2013Visual field defect 05/19/2013 Encounters DateTypeDepartmentCare HozeHbmugflxneo09/08/[address] [address] Mary Ureña MA Acute myocardial infarction of inferior wall (CMS/HCC)06/24/2025[address] [address] Pako Palacios MD Coronary artery disease involving [place] coronary artery of [place] heart without angina pectoris; Hyperlipemia, mixedfrom Last 3 Months Immunizations ImmunizationAdministration DatesNext DueInfluenza, injectable, quadrivalent, preservative free07/31/2016Influenza, seasonal, /05/2014Influenza, seasonal, injectable, preservative free, 6 moonths & older08/02/2015Influenza, trivalent, lflocobtht26/31/2019Pneumococcal Polysaccharide [id number] Unspecified Sars-Cov-2 Glnqzldswhn21/27/2021,02/06/2021Zoster, live10/31/2016 Social History Tobacco UseTypesPacks/DayYears UsedDateSmoking Tobacco: FormerCigarettes Smokeless Tobacco: Never Tobacco Cessation:Counseling Given: Not Answered Alcohol UseStandard Drinks/WeekCommentsYes0 (1 standard drink = 0.6 oz pure alcohol)MODERATEUT Safety & EnvironmentAnswerDate RecordedFear of Current or Ex-PartnerNot on file12/25/2023Emotionally AbusedNot on file12/25/2023hysically AbusedNot on file12/25/2023Sexually AbusedNot on file12/25/2023hysically or Sexually AbusedNot on file12/25/2023Sex and Gender InformationValueDate Recorded Sex Assigned at BirthNot on fileLegal YmaRwad8605/01/2022 9:50 PM EDTGender IdentityNot on fileSexual OrientationNot on file Last Filed Vital Signs Vital SignReadingTime TakenCommentsBlood Jpwfjwau556/6410/18/2024 9:22 AM EST Hxrqi717710/18/2024 9:22 AM ESTTemperature--Respiratory Rate--Oxygen Lhivodrofd34% 10/18/2024 9:22 AM ESTInhaled Oxygen Concentration--Cvfssl21.8 kg (198 lb) 10/18/2024 9:22 AM UYDBuqxrl686.2 cm (5' 7 )10/18/2024 9:22 AM ESTBody Mass Index31.01112/19/2023 9:22 AM EST Plan of Treatment Health MaintenanceDue DateLast DoneCommentsCT Ricebtfqtdce88/02/1953Colonoscopy 3Colorectal Cancer Yttqyxesy23/02/1953FIT-DNA1952FIT1952 FOBT1952Medicare Annual Wellness (AWV)1950 2773Mfdgbpzerjoir11/02/1953 Depression Skgjngssv93/02/1965Adult Omztkta6812/05/1974Zoster Vaccines (1 of 2) Pneumococcal Vaccine: 50+ Years (2 of 2 - PCV)07/14/2007 07/14/2006Fall Risk Ezqnqvupe13/02/2018COVID-19 Vaccine ( season) 5002/27/2021, 02/27/2021, 02/06/2021, Additional history existsInfluenza Vaccine (#1)5112/01/2022, 09/02/2019, 07/31/2016, Additional history existsHIB VaccinesAged OutNo longer eligible based on patient's age to complete this topicHPV VaccinesAged OutNo longer eligible based on patient's age to complete this topicIPV VaccinesAged OutNo longer eligible based on patient's age to complete this topicMeningococcal B VaccineAged OutNo longer eligible based on patient's age to complete this topicMeningococcal VaccineAged OutNo longer eligible based on patient's age to complete this topicRotavirus VaccinesAged Out No longer eligible based on patient's age to complete this topic Insurance Care Teams Team MemberRelationshipSpecialtyStart DateEnd Date Vik Oreilly MD [address] [facility] [address] [place] [address] PCP - [facility]07/10/22
--- OUTSIDE RECORDS SUMMARY | 2025-09-03 12:21 | XMS_ITS | Clinical Summary ---
Author Organization [facility] Address [address] [place] [address] Care Team Providers Care Health And Safety Inspector Name Role Phone Vik Oreilly MD Primary Care Provider [phone] Allergies Active AllergyReactionsCriticalityNoted DateCommentsStatinsUnknownMedium 05/16/2023 Medications MedicationSigDispense QuantityRefillsLast FilledStart DateEnd DateStatus Turmeric Curcumin 500 MG capsule as directed OrallyActive Potassium Gluconate 550 MG tablet 1 (one) time each day at the same time.Active magnesium 250 MG tablet 1 (one) time each day at the same time.Active L-lysine 1000 MG tablet as directed OrallyActive lisinopril 10 MG tablet 1 (one) time each day at the same time.Active ezetimibe (Zetia) 10 MG tablet 1 (one) time each day at the same time.Active cholecalciferol (Vitamin D3) 25 MCG (1000 UT) tablet 1 (one) time each day at the same time.Active atenolol (Tenormin) 50 MG tablet 1 (one) time each day at the same time.Active aspirin 81 MG EC tablet as directed OrallyActive Ascorbic Acid (Vitamin C) 500 MG capsule as directed OrallyActive B Complex Vitamins (VITAMIN B COMPLEX PO) Vitamin B ComplexActive beta carotene (vitamin A) 7.5 MG (30640 UT) capsule Vitamin AActive rosuvastatin (Crestor) 10 MG tablet 1 capsule 1 (one) time each day at the same time.Active Misc Natural Products (OSTEO BI-FLEX JOINT SHIELD PO) Osteo Bi-Flex Joint ShieldActive Multiple Vitamins-Minerals (CENTRUM ADULT PO) as directed OrallyActive ferrous sulfate 325 (65 Fe) MG tablet Take 1 tablet by mouth in the morning.Active niacin 500 MG tablet Take 500 mg by mouth in the morning. Take with meals.Active Chromium Picolinate 1000 MCG tablet Take by mouth Daily.Active Active Problems ProblemNoted DateDiagnosed DateAbdominal aortic aneurysm (AAA) without rupture 05/15/2023oronary artery vykceso1905/15/2023History of total hip replacement 05/15/2023Other sequelae of cerebral vrsvltjibs43/13/2023rimary osteoarthritis of right hip05/15/2023 Immunizations ImmunizationAdministration DatesNext DueInfluenza, trivalent, adjuvanted 09/02/2019 Social History Tobacco UseTypesPacks/DayYears UsedDateSmoking Tobacco: NeverSmokeless Tobacco: Never Tobacco Cessation:Counseling Given: Not Answered Alcohol UseStandard Drinks/WeekCommentsYes1 (1 standard drink = 0.6 oz pure alcohol)Sex and Gender InformationValueDate RecordedSex [facility]/09/[facility] 11:31 AM EDTLegal WcdTbxe7701/15/2023 10:09 PM EDTGender IdentityMale 05/09/2023 11:31 AM EDTSexual OrientationNot on file Last Filed Vital Signs Vital SignReadingTime TakenCommentsBlood Pressure--Pulse--Temperature-- Respiratory Rate--Oxygen Saturation--Inhaled Oxygen Concentration--Jslscg96.2 kg (190 lb)05/16/2023 11:22 AM NXOYoqjrm403.6 cm (5' 6 )05/16/2023 11:22 AM EDTBody Mass Index30.67005/16/2023 11:22 AM EDT Plan of Treatment Not on file Insurance Care Teams Team MemberRelationshipSpecialtyStart DateEnd Date Vik Oreilly MD [facility]CP - [facility]/14/23
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
[2025-09-03 12:36] LABS: Hematocrit 24.3 % (42.0-54.0); Hemoglobin 8.1 g/dL (14.0-18.0); Immature Granulocytes Abs Auto 0.01 10^3/uL (0.00-0.03); Immature Granulocytes Pct Auto 0.2 % (0.0-0.5); Lymphocytes Absolute Auto 0.9 10^3/uL (1.2-3.8); Mean Corpuscular HGB Conc 33.3 g/dL (29.9-35.2); Mean Corpuscular Hemoglobin 36.8 pg (25.9-34.0); Mean Corpuscular Volume 110.5 fL (80.0-94.0); Platelet Count 116 10^3/uL (150-450); Red Blood Count 2.20 10^6/uL (4.70-6.10); White Blood Count 4.8 10^3/uL (4.0-11.0)
[2025-09-03 13:30] LABS: Alanine Aminotransferase 121 U/L (16-63); Albumin Globulin Ratio 0.4; Albumin Level 2.9 g/dL (3.4-5.0); Alkaline Phosphatase 60 U/L (46-116); Anion Gap 8.9; Aspartate Amino Transferase 108 U/L (15-37); Blood Urea Nitrogen 20.0 mg/dL (7.0-18.0); Calcium 8.3 mg/dL (8.5-10.1); Carbon Dioxide 24.7 mmol/L (21.0-32.0); Chloride 104 mmol/L (98-107); Estimated GFR (African America >60 (>=60 mL/min/1.73m^2); Estimated GFR (Non-African Ame >60 (>=60 mL/min/1.73m^2); Free T3 2.38 pg/mL (2.18-3.98); Globulin 8.2 g/dL; Glucose 115 mg/dL (74-106); Potassium 3.6 mmol/L (3.5-5.1); Sodium 134 mmol/L (136-145); Thyroid Stimulating Hormone 1.200 uIU/mL (0.358-3.740); Total Protein 11.1 g/dL (6.4-8.2)
[2025-09-03 13:35] LABS: NT Pro B Type Natriuretic Pept 1821.0 pg/mL (<=900.0)
== END 2025-09-03 12:19 | disposition home or self-care (01) ==
LOC: LAB 12:18
PROVIDERS: PCP Family Medicine; Visit Provider Family Medicine
DX: R06.02 Shortness of breath (principal); D64.9 Anemia, unspecified; N17.9 Acute kidney failure, unspecified; E03.9 Hypothyroidism, unspecified; R79.89 Other specified abnormal findings of blood chemistry; I10 Essential (primary) hypertension
CPT/HCPCS: 36415; 80053; 83880; 84436; 84443; 84481; 85025

== ENCOUNTER 2025-09-06 15:24 | Outpatient (OUT) | payer MEDICARE, SELFPAY ==
--- OUTSIDE RECORDS SUMMARY | 2025-09-01 08:15 | XMS_ITS ---
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 OREILLY Performing Lab: see note ML - [facility] LBCBC AUTO DIFF Reviewed date:09/04/2025 01:44:02 PM Interpretation: Performing Lab: Notes/Report: [facility] ,White Blood Count4.84.0-11.0 10 3/uLRed Blood Count2.204.70-6.10 10 6/uL Hemoglobin8.114.0-18.0 g/qVRoawsbxims57.342.0-54.0 %Mean Corpuscular Zgamnm651.5 80.0-94.0 fLMean Corpuscular Ltulvutbif40.825.9-34.0 pgMean Corpuscular HGB Conc 33.329.9-35.2 g/dLRed Cell Distribution Width15.511.0-15.0 %Platelet Sxein010 150-450 10 3/uLMean Platelet Volume9.49.5-13.5 fLNeutrophils Percent Auto63.2 43.0-75.0 %Lymphocytes Percent Auto19.520.5-60.0 %Monocytes Percent Auto13.61.7- 12.0 %Eosinophils Percent Auto2.90.9-7.0 %Basophils Percent Auto0.60.2-2.0 % Immature Granulocytes Pct Auto0.20.0-0.5 %Neutrophils Absolute Auto3.01.4-6.5 10 3/uLLymphocytes Absolute Auto0.91.2-3.8 10 3/uLMonocytes Absolute Auto0.70.3-0.8 10 3/uLEosinophils Absolute Auto0.10.0-0.7 10 3/uLBasophils Absolute Auto0.00.0- 0.1 10 3/uLImmature Granulocytes Abs Auto0.010.00-0.03 10 3/uLPerforming Lab:see noteML - [facility] LBPROF 14(COMP METB) Reviewed date:09/04/2025 01:44:02 PM Interpretation: Performing Lab: Notes/Report: [facility] ,Zukbtv412608-618 mmol/LPotassium3.63.5-5.1 mmol/BHofykxcg97695-188 mmol/LCarbon Zivawru74.721.0-32.0 mmol/LAnion Gap8.8Vgvqpzx01384-560 mg/dLBlood Urea Nitrogen 20.07.0-18.0 mg/dLCreatinine1.060.70-1.30 mg/dLEstimated GFR ( Stephanie>60 >=60 mL/min/1.73m 2Estimated GFR (Non- Kristel>60>=60 mL/min/1.73m 2BUN Creatinine Ratio18.3Iagdrjm2.38.5-10.1 mg/dLBilirubin Total0.60.2-1.0 mg/dL Aspartate Amino Raeitynwojn10465-25 U/LAlanine Bafooeacjniumiss07973-97 U/L Alkaline Abzdavcpymt4212-491 U/LTotal Gbidxcp06.16.4-8.2 g/dLAlbumin Level2.9 3.4-5.0 g/dLGlobulin8.2Albumin Globulin Ratio0.4Performing Lab:see noteML - [facility] LB REASON FOR VISIT swelling bilateral ankles- started last week, open area on the back of the right leg, SOB for aboutthree weeks- said is getting a little better, This all started in May- threw back out- went to chiropractor multiple times- now has upper shoulder pain and into the neck, 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, 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, follows up with [place] [facility] in October Medications Medication SIG (Take, [...] Status W/U Status Risk Notes Problem Edema (12164593) Edema (R60.9) ActiveconfirmedProblemCervical radiculopathy (93592361)Cervical radiculopathy (M54.12)Activeconfirmed Vital Signs Weight 193.4 lbs 09/01/2025 Height 66 in 09/01/2025 Blood pressure systolic 154 mm Hg 09/01/20 25 Blood pressure diastolic 86 mm Hg 025 Heart Rate 77 /min 09/01/2025 BMI 31.21 kg/m2 09/01/2025 Oximetry 95 % 09/01/2025 Encounters Encounter Location Date Provider Diagnosis [facility] [address] [place] [address] 09/01/2025 Yamil Oreilly Edema R60.9 and Cerv ical radiculopathy M54.12 Assessments Encounter Date Diagnosis (ICD Code) Assessment Notes Treatment Notes Treatment Clinical Notes Section Notes 09/01/2025 Edema (ICD-10 - R60.9) 09/01/2025ervical radiculopathy (ICD-10 - M54.12)had for year - [facility] chiropracter will keep wththat - ifnot [...] * Arsh PARMAR ADOB:1950 (74 yo M)Acc No.[id number]:09/01/2025 Progress Note Patient: Arsh BUTTERFIELD :?Vik Oreilly ([facility]), MDDOB:1950???Age: 74 Y???Sex:MaleDate:09/01/2025Phone:[phone]:[address], [facility] [place], [place]Ncclu In:01:10 PM ESTCheck Out:01:51 PM EST Subjective: * Chief Complaints: * S welling bilateral ankles- started last week, open area on the back of the right legSOB for about three weeks- said is getting a little betterThis all started in May- threw back out- went to chiropractor multiple times- now has upper shoulder pain and into the neckRight hand personnel recruiter is weakened- ongoing, 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follows up with [place] [facility] in October * HPI: ???General:? Swling [...] I67.89 Other cerebrovascula r disease Modified On:03/04/2023W/U Status:vbdalyekkP32.0Bilateral primary osteoarthritis of knee Modified On:03/04/2023 Status:odklzxqytQ01.896Other spondylosis, lumbar region Modified On:03/04/2023 Status:ocykejrisS10.43XAMultiple fractures of ribs, bilateral, initial encounter for closed fracture Modified On:03/04/2023 Status:hmtovpfjyK87.0XXATraumatic pneumothorax, initial encounter Modified On:03/04/2023 Status:qiisyojenL67.322AContusion of lung, bilateral, initial encounter Modified On:03/04/2023 Status:ixsuspjpwP57.254ANondisplaced comminuted fracture of shaft of ulna, right arm, initial encounter for closed fracture Modified On:03/04/2023 Status:yomphhkueS83.014ANondisplaced osteochondral fracture of right patella, initial encounter for closed fracture Modified On:03/04/2023 Status:aeujtossgA46.51XAInfection and inflammatory reaction due to internal right hip prosthesis, initial encounter Modified On:03/04/2023 Status:oeqhbbljtO46.2Prosthetic and other implants, materials and accessory orthopedic devices associated with adverse incidents Modified On:03/04/2023 Status:lqcpdmpkmP74.5Hyperlipidemia Modified On:02/12/2024 Status:zfjkvtxltV59Znnurutdyeqg Modified On:02/12/2024 Status:wuvmdrwkyY92.90Osteoarthritis Modified On:03/04/2023 Status:metnsnpcqF16.9Sinusitis Modified On:03/04/2023 Status:bvkbugkqoH27.40Visual field defect Modified On:03/04/2023 Status:ijinzhrpoW01.20Cerumen impaction Modified On:03/04/2023 Status:isxzbbvziP57.0Osteoporosis Modified On:03/04/2023 Status:vwnbegxyhJ67.9Acute bronchitis Modified On:03/04/2023 Status:rmiquuslrB56.00Well adult Modified On:03/28/2023 Status:fowpkxuhnR61.9Folliculitis Modified On:03/04/2023 Status:wwhjpufrfR74.36DDD (degenerative disc disease), lumbar Modified On:03/04/2023 Status:bjxbhizjbU59.1History of coronary artery bypass graft Modified On:03/04/2023 Status:allpbvxfnH04.9Cataract Modified On:03/04/2023 Status:wcjskweqoJ98.819Vitreous detachment Modified On:03/04/2023 Status:njyvthralR64.0Aphthous ulcer Modified On:03/04/2023 Status:xeoayyexgL19.9H/O adverse drug reaction Modified On:03/04/2023 Status:snjezrrilP68.2History of [place] (myocardial infarction) Modified On:03/04/2023 Status:qibctjuzfX69.19Myocardial infarction of inferior wall Modified On:03/04/2023 Status:wnwcdbumgB26.1Retroperitoneal hematoma Modified On:03/04/2023 Status:dkhpxvvdpL93.9Eczema of hand Modified On:03/04/2023 Status:djckphtdnF22.379Macular pucker Modified On:03/04/2023 Status:mtunqkgsrK21.462Homonymous hemianopsia, left Modified On:03/04/2023 Status:vjrvgljiiX58.2Monoclonal gammopathy of unknown significance Modified On:03/04/2023 Status:ckjxuwhgnY04.5RB (rectal bleeding) Modified On:03/04/2023 Status:ezzjkdxcaE12.269Meniscus, lateral, bucket handle tear, old Modified On:03/04/2023 Status:wfrbxnzvwX22.890H/O arthroscopy of right knee Modified On:03/04/2023 Status:ifayqxrgwM59.890H/O laminectomy Modified On:03/04/2023 Status:oesnpxbskT30.890History of inferior vena caval filter placement Modified On:03/04/2023 Status:gqhhqwaiqQ15.09Acute [place] anterior wall first episode care Modified On:03/04/2023 Status:nfnreruktB23.113ALaceration of liver, initial encounter Modified On:03/04/2023 Status:oykrmzzmjB95.061Lumbar spinal stenosis Modified On:03/04/2023 Status:adzxjxisqV64.50Low back pain, unspecified Modified On:03/04/2023 Status:xzorscvzvV85.890H/O surgical procedure Modified On:03/04/2023 Status:bsjxqoyaoH07.9Unspecified infectious disease Modified On:03/04/2023 Status:zxvtytflmS87.2Mixed hyperlipidemia Modified On:03/28/2023 Status:oidovjtcvC32.4Presbyopia Modified On:03/04/2023 Status:apqpxgqyaK45.7Cardiomyopathy due to drug and external agent Modified On:03/28/2023 Status:tpnjfdpwpK27.10CAD (coronary artery disease) Modified On:02/12/2024 Status:nduikzolyQ50.9Hypothyroidism Modified On:02/19/2024 Status:cbmehnsuvI63.9Heart failure, unspecified Modified On:08/15/2025 Status:evopptospJ13.90Cellulitis Modified On:08/15/2025 Status:ssbiefpaiD81.9Edema Modified On:09/01/2025 Status:pwdnfubjdO89.12Cervical radiculopathy Modified On:09/01/2025 Status:confirmed * Medical History: [...] as directed Orally Osteo Bi-Flex One Per Day(Cflgvhcjy-Nacpraadrqj-Ecs D) - Tablet as directed Orally Rosuvastatin [...] directed Orally Taking Osteo Bi-Flex One Per Day(Xxmselxgq-Rurmrbalrlr-Bdl D) - Tablet as directed Orally Taking [...] T3)2.?Cervical radiculopathy? Notes: had for year - worbran lately -dong chiropracter will keep wththat - ifnot better - needs MRI ? * Procedure Codes: * Preventive Medicine: ??Screenings/Counseling:?BMI ACTION PLAN?Above Normal BMI Follow-up?Dietary management education, guidance, and counseling * * Sign off status: CompletedVisit Status:?CHK (Check Out) true * Provider: Poli Oreilly ([facility])MD Date: Generated for Printing/Faxing/eTransmitting on:?09/06/2025 03:29 PM EST History and Physical Notes * HPI [...]
--- OUTSIDE RECORDS SUMMARY | 2025-09-04 08:33 | XMS_ITS ---
Author Organization The [facility] in [place] Address [address] [place] [address] Care Team Providers Care Outdoor Adventure Guides Name Role Phone Yamil Oreilly Primary Care Provider REASON FOR VISIT review labs Medications Medication SIG (Take, Route, Frequency, Duration) Notes Start Date End Date Status Lasix 40 MG 1 tablet Orally twice a day; Dur ation: 30 days 5ActivePotassium Chloride ER 20 MEQ1 capsule with food Orally Twice a day; Duration: 30 days5Active Problems Problem Type SNOMED Code ICD Code Onset Dates Problem Status W/U Status Risk Notes Problem Anemia (795046846) Anemia (D64.9) Activeconfirmed Procedures Procedure Date Ordered Date Performed Result Body Sit e Echocardiogram 09/04/2025 N/A Encounters Encounter Location Date Provider Diagnosis [facility] [address] [place] [address] 09/04/2025 Yamil Oreilly Anemia D64.9 ; SOB [...] 09/04/2025 CBC 09/04/2025 High Sensitivity Troponin 09/04/2025 BNP 09/04/2025 Progress Notes * Arsh PARMAR ADOB:1950 (74 yo M)Acc No.[id number]:09/04/2025 Patient:?Arsh PARMAR A :1950???Age:74 Y???Sex:MalePhone:[phone] Address:[address] [place] [address] [address], [place] [id number] * Refills Refill Lasix Tablet, 40 MG, [...] Codes: * true * Date:?Generated for Printing/Faxing/eTransmitting on:?09/06/2025 03:29 PM EST
--- OUTSIDE RECORDS SUMMARY | 2025-09-06 15:29 | XMS_ITS | Clinical Summary ---
Author Organization [employer] tem Address [id number] [address] [place] [address] Care Team Providers Care Sourcing Assistant Name Role Phone Vik Oreilly MD Primary Care Provider [phone] Allergies No known active allergies Medications MedicationSigDispense QuantityRefillsLast FilledStart DateEnd DateStatus oxyCODONE-acetaminophen (PERCOCET) 5-325 mg per tablet Take 1 tablet by mouth every 4 (four) hours as needed for pain.Active magnesium 30 mg tablet Take 30 mg by mouth 2 (two) times a day.Active qmikgeij-fdjp-ES-calcium &mins (THERAGRAN-M) 9 mg iron-400 mcg tablet [...] times a week05/25/2020How often do you attend mandaen or episcopal services?Never05/25/2020Do you belong to any clubs or organizations such as mandaen groups, unions, fraternal or athletic groups, or [...] and heating?Not hard at all 05/25/2020PHQ-2AnswerDate RecordedTotal Lruik019[facility] [place] [facility] - Occupational Stress QuestionnaireAnswerDate [...] from medical appointments or from getting medications?Patient lkurfoky09/23/2020In the past 12 months, has lack of transportation kept you from meetings, work, or from getting things needed for daily living?Patient njepivlm78/23/2020ChildcareAnswerDate RecordedDo problems getting early childhood services coordinator make it difficult for you to work or study?No05/25/2020 EmploymentAnswerDate RecordedDo you need help finding a local career center and/or a training program?No05/25/2020Purpose - LifeAnswerDate RecordedPurpose and direction in ltsdPgecqrv50/11/2021ex and Gender InformationValueDate RecordedSex Assigned at BirthNot on fileLegal HqkLslc6606/08/2015 11:26 AM EDT Gender IdentityNot on fileSexual OrientationNot on file Last Filed Vital Signs Vital SignReadingTime TakenCommentsBlood Vioryvjd936/7409 1:13 PM EDT Guzkn6288 1:13 PM KMLHgssghuvyky55.9 ??C (98.4 ??F)07/06/2020 1:13 PM EDTRespiratory Vuqs043407/06/2020 1:13 PM EDTOxygen Ogrfgqeuzn30%06/15/2020 1:00 PM EDTInhaled Oxygen Concentration--Xuxqvi16.7 kg (193 lb 6 oz)07/06/2020 1:13 PM ETY422 lbs 6 tsTujvil623.2 cm (5' 7.01 )06/14/2020 1:12 PM EDTBody Mass Index 30.28006/14/2020 1:12 PM EDT Plan of Treatment Health MaintenanceDue DateLast DoneCommentsDepression Zlgfhnbee09/02/1965Tobacco Tftzkmkqw06/02/1965Adult BMI Pgdhnnyko03/02/1971DTaP,Tdap and Td Vaccines (1 - Tdap)1971Zoster (Shingles) Vaccine (1 of 2)2002Fall Risk Screening 2017Influenza Gdvsarm6807/04/2025RSV ( or age 60+ yrs) (1 - 1-dose 75+ series)2027 Goals GoalPatient Goal TypeAssociated ProblemsRecent ProgressPatient-Stated?Author Home Loli Key LSW Note: Evaluation of progress towards goal: Safe dc transition from hospital to home with family support and NOMS PT. Medical Devices Not on file Insurance Advance Directives * Full Code (Latest Code Status on File) Date ActivatedDate InactivatedComments05/25/2020 6:25 PM05/27/2020 7:34 PM Care Teams Team MemberRelationshipSpecialtyStart DateEnd Date Vik Oreilly MD PCP - GeneralFamily Medicine05/25/20
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
--- OUTSIDE RECORDS SUMMARY | 2025-09-06 15:30 | XMS_ITS | Clinical Summary ---
Author Organization [facility] Address [address] [place] [address] Care Team Providers Care Geothermal Hvac Technician Name Role Phone Vik Oreilly MD Primary Care Provider [phone] Allergies No known active allergies Medications MedicationSigDispense [...] BY MOUTH IN THE MORNING 90 tablet 3045Active rosuvastatin (Crestor) 10 mg tablet Indications:Coronary artery disease involving [place] coronary artery of [place] heart without angina pectoris,Hyperlipemia, mixedTAKE 1 TABLET BY MOUTH AT BEDTIME 90 tablet 3085Active ezetimibe (Zetia) 10 mg tablet Indications:Acute myocardial infarction of inferior wall (CMS/HCC)Take 1 tablet (10 mg) by mouth in the morning. 90 tablet 3095096Active Active Problems ProblemNoted DateDiagnosed DateBMI 33.0-33.9,adult10/18/2024Morbid obesity 10/18/2024Skin tag10/18/2024History of total hip nyulpomafdb90 Primary osteoarthritis of right hip/10/2023Spinal stenosis of lumbar rvkkov0201/30/2023Sequelae of cerebral bqpwwxouba44/30/2023rimary localized osteoarthritis of pelvic region and thigh01/30/2023resence of right artificial hip joint01/30/20230173Xvpxnuumfmfumh69/30/2023Occult blood in mzvlof3301/30/2023 Difficulty tsyevyn1401/30/2023egeneration of intervertebral disc of lumbar region 01/30/2023erebrovascular accident (CVA)01/30/2023bnormal gait01/30/2023 Abdominal aortic aneurysm without fkznkrb4501/30/20238878Wdooikpvpccl01/30/2023 Exxniunh23/30/2023oronary artery disease involving [place] coronary artery of [place] heart without angina tohsditp23/17/2022History of coronary artery bypass graft08/19/2022Essential juccdsczjrgj06/17/2022ellulitis of hip, right 05/25/2020MGUS (monoclonal gammopathy of unknown significance)06/28/2013cute myocardial infarction of inferior wall05/19/20132691Jbltihbbpywbup78/17/2013 Ezryktfoplwvld30/17/2013Old myocardial qdyrbliazg72/17/2013Visual field defect 05/19/2013 Encounters DateTypeDepartmentCare RanbIkhrjhjfgiu07/08/[address] [address] Mary Ureña MA Acute myocardial infarction of inferior wall (CMS/HCC)06/24/2025[address] [address] Pako Palacios MD Coronary artery disease involving [place] coronary artery of [place] heart without angina pectoris; Hyperlipemia, mixedfrom Last 3 Months Immunizations ImmunizationAdministration DatesNext DueInfluenza, injectable, quadrivalent, preservative free07/31/2016Influenza, seasonal, kbqyduwozd10/05/2014Influenza, seasonal, injectable, preservative free, 6 moonths & older08/02/2015Influenza, trivalent, adxerdohnm57/31/2019Pneumococcal Polysaccharide CIS4573 Unspecified Sars-Cov-2 Exidlyrdthe66/27/2021,02/06/2021Zoster, live10/31/2016 Social History Tobacco UseTypesPacks/DayYears UsedDateSmoking Tobacco: FormerCigarettes Smokeless Tobacco: Never Tobacco Cessation:Counseling Given: Not Answered Alcohol UseStandard Drinks/WeekCommentsYes0 (1 standard drink = 0.6 oz pure alcohol)MODERATEUT Safety & EnvironmentAnswerDate RecordedFear of Current or Ex-PartnerNot on file12/25/2023Emotionally AbusedNot on file12/25/2023hysically AbusedNot on file12/25/2023Sexually AbusedNot on file12/25/2023hysically or Sexually AbusedNot on file12/25/2023Sex and Gender InformationValueDate Recorded Sex Assigned at BirthNot on fileLegal JukWxjp4705/01/2022 9:50 PM EDTGender IdentityNot on fileSexual OrientationNot on file Last Filed Vital Signs Vital SignReadingTime TakenCommentsBlood Ejbvhybn525/6410/18/2024 9:22 AM EST Jldaw734010/18/2024 9:22 AM ESTTemperature--Respiratory Rate--Oxygen Yqxyhxfwyw17% 10/18/2024 9:22 AM ESTInhaled Oxygen Concentration--Bbluby50.8 kg (198 lb) 10/18/2024 9:22 AM NIGScqdxn138.2 cm (5' 7 )10/18/2024 9:22 AM ESTBody Mass Index31.01112/19/2023 9:22 AM EST Plan of Treatment Health MaintenanceDue DateLast DoneCommentsCT Tizxzruxazjl33/02/1953Colonoscopy 3Colorectal Cancer Brwxbiiel63/02/1953FIT-DNA1952FIT1952 FOBT1952Medicare Annual Wellness (AWV)1950 5775Lalwvfwmrvrnv74/02/1953 Depression Tbvqrrpxm46/02/1965Adult Prejjcs0412/05/1974Zoster Vaccines (1 of 2) Pneumococcal Vaccine: 50+ Years (2 of 2 - PCV)07/14/2007 07/14/2006Fall Risk Ksnwfonke78/02/2018COVID-19 Vaccine ( season) 5002/27/2021, 02/27/2021, 02/06/2021, Additional [...] DateEnd Date Vik Oreilly MD [address] [facility] [address] [address] PCP - [facility]07/10/22
--- OUTSIDE RECORDS SUMMARY | 2025-09-06 15:30 | XMS_ITS | Clinical Summary ---
Author Organization [facility] Address [address] [place] [address] Care Team Providers Care Flight Crew Time Clerk Name Role Phone Vik Oreilly MD Primary Care Provider [phone] Allergies Active AllergyReactionsCriticalityNoted DateCommentsStatinsUnknownMedium 05/16/2023 Medications MedicationSigDispense [...] ComplexActive beta carotene (vitamin A) 7.5 MG (18999 UT) capsule Vitamin AActive rosuvastatin (Crestor) 10 [...] aortic aneurysm (AAA) without rupture 05/15/2023oronary artery cxzuovn1205/15/2023History of total hip replacement 05/15/2023Other sequelae of cerebral hnnsumjwuh25/13/2023rimary osteoarthritis of right hip05/15/2023 Immunizations ImmunizationAdministration DatesNext DueInfluenza, trivalent, adjuvanted 09/02/2019 Social History Tobacco UseTypesPacks/DayYears UsedDateSmoking Tobacco: NeverSmokeless Tobacco: Never Tobacco Cessation:Counseling Given: Not Answered Alcohol UseStandard Drinks/WeekCommentsYes1 (1 standard drink = 0.6 oz pure alcohol)Sex and Gender InformationValueDate RecordedSex Assigned at [facility] 05/09/2023 11:31 AM EDTLegal PzvUnbr1601/15/2023 10:09 PM EDTGender IdentityMale 05/09/2023 11:31 AM EDTSexual OrientationNot on file Last Filed Vital Signs Vital SignReadingTime TakenCommentsBlood Pressure--Pulse--Temperature-- Respiratory Rate--Oxygen Saturation--Inhaled Oxygen Concentration--Ihrmtc88.2 kg (190 lb)05/16/2023 11:22 AM MYDYeexgl383.6 cm (5' 6 )05/16/2023 11:22 AM EDTBody Mass Index30.67005/16/2023 11:22 AM EDT Plan of Treatment Not on file Insurance Care Teams Team MemberRelationshipSpecialtyStart DateEnd Date Vik Oreilly MD PCP - [facility]05/14/23
--- OUTSIDE RECORDS SUMMARY | 2025-09-06 15:37 | XMS_ITS | CCD ---
Author Organization [facility] CliniSyfl Care Team Providers Care [employer] Builder Name Role Phone AMBER KIRBY Admitting Unavailable AMBER IKRBY Consulting Unavailable AMBER KIRBY Attending Unavailable HOY [...] Care Physician Haroon Don Attending Unavailable NillHaroon Admitting Unavailable Haroon DON Attending Unavailable Daksha Oreilly Referring Unavailable Haroon DON Attending Unavailable MOUKARBELBRYCE Attending Unavailable Allergies Allergy ClassificationReported Allergen(s)Allergy TypeDate of OnsetReaction(s) Facility (1 source)black walnut pollen extractDrug AllergyThe [facility] ([facility] source)Hmg-Coa Reductase Inhibitors (Statins); Translations: [statins] Propensity to adverse reactions (disorder)[facility] Repository (1 source)No Known Medication Allergies; Translations: [No Known Medication Allergies]Propensity to adverse reactions (disorder)[facility] Repository Medications Current Medications MedicationDrug Class(es)DatesSig (Normalized)Sig (Original)aspirin 81 mg delayed release oral tablet (2 sources)Platelet Aggregation Inhibitor, Nonsteroidal Anti-inflammatory Drug Start: 46-71-9159tcll 1 tablet by mouth once dailyaspirin 81 mg Oral EC Tab 81 mg = 1 tab(s), Oral, Daily Start Date: 06/19/21 Status: Orderedatenolol 50 mg oral tablet (2 sources)beta-Adrenergic BlockerStart: 19-88-5447yukq 1 tablet by mouth once dailyatenolol 50 mg Tab 50 mg = 1 tab(s), Oral, Daily Start Date: 06/19/21 Status: OrderedOsteo Bi-Flex (2 sources)Start: 89-58-6592Uofax Bi-Flex Refill(s) 0 Start Date: 02/16/24 Status: Orderedezetimibe 10 mg oral tablet (2 sources)Dietary Cholesterol Absorption InhibitorStart: 00-97-0036unio 1 tablet by mouth once dailyezetimibe 10 mg Tab 10 mg = 1 tab(s), Oral, Daily Start Date: 06/19/21 Status: OrderedFish Oils (2 sources)Start: 85-97-8176cwot 1200 mg by mouth once dailyFish Oil 1,200 mg, Oral, Daily Start Date: 06/19/21 Status: Orderedlisinopril 10 mg oral tablet (2 sources)Angiotensin Converting Enzyme InhibitorStart: 72-98-4149yqch 1 tablet by mouth once dailylisinopril 10 mg Tab 10 mg = 1 tab(s), Oral, Daily Start Date: 06/19/21 Status: OrderedMultivitamin preparation (2 sources)Start: 52-06-4306rdoh 1 tablet by mouth once dailymultivitamin 1 tab(s), Oral, Daily, Refill(s) 0 Start Date: 02/16/24 Status: Orderedrosuvastatin calcium 10 mg oral tablet (2 sources)HMG-CoA Reductase InhibitorStart: 22-74-3070cqgy 1 tablet by mouth once dailyrosuvastatin 10 mg Tab 10 mg = 1 tab(s), Oral, Daily Start Date: 06/19/21 Status: Ordered Problems Active Problems Problem ClassificationProblemDateDocumented DateEpisodic/ChronicAcute cerebrovascular disease (2 sources)Cerebrovascular -36-1093UfiyvdfXntyq myocardial infarction (2 sources)Myocardial msiiqiuvae60-92-4522XzzntzyKcaqwywz (2 sources)Xisdmnca69-38-7536HjobzrzXgpgzusp atherosclerosis and other heart disease (7 sources)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; Translations: [Coronary arteriosclerosis]Onset: 08-19-2022 47-47-3334JpqtabmJejezupb mellitus without complication (4 sources)Other abnormal glucose; Translations: [OTHER ABNORMAL GLUCOSE]Onset: 60-31-4631RlkhlzxcJwcmxzpuf of lipid metabolism (9 sources)Hyperlipidemia, unspecified; Translations: [Hyperlipidemia]Onset: 10-06-2323XpysmheJzmafzloh hypertension (5 sources)Essential (primary) hypertension; Translations: [Hypertensive disorder]Onset: 102555-36-9035TylcgwcSiklbft and fatigue (1 source)Other fatigue; Translations: [OTHER FATIGUE]Onset: 69-95-4913Ftbjtfvg Osteoarthritis (2 sources)Rtphmntfhxxzsm46-69-1854YaiqlgkYoemwwiajxvs (2 sources)Rrgoeogwelxy84-94-7484FnkhcwiCftwm gastrointestinal disorders (2 sources)Occult blood in -08-1776TsmjjcbdPzfxk nutritional; endocrine; and metabolic disorders (2 sources)Body mass index 30+ - -66-4414GjdthwvRckyn nutritional; endocrine; and metabolic disorders (2 sources)Morbid bohfuhl90-42-9944KvkquwmWwduy screening for suspected conditions (not mental disorders or infectious disease) (2 sources)Encounter for screening for malignant neoplasm of prostate; Translations: [Encounter for screening for malignant neoplasm of rectum]Onset: 91-82-7294MxbdmmzeZipio skin disorders (2 sources)Hypertrophic condition of skin; Translations: [Other hypertrophic disorders of the skin]Onset: 05-53-6830LtimhoovAntws skin disorders (2 sources)Skin zca27-40-1360FyrztijsQgtl-; endo-; and myocarditis; cardiomyopathy (except that caused by tuberculosis or sexually transmitted disease) (2 sources)CardiomyopathyOnset: 608839-39-4714YkjywacFmdjyjqtpib; intervertebral disc disorders; other back problems (2 sources)Degeneration of lumbar intervertebral ctat23-59-2974Jryjify Spondylosis; intervertebral disc disorders; other back problems (2 sources)Spinal stenosis of lumbar sjgkuv54-83-2760Vbjwozho Past or Other Problems Problem ClassificationProblemDateDocumented DateEpisodic/ChronicCoronary atherosclerosis and other heart disease (2 sources)Presence of aortocoronary bypass graft; Translations: [Presence of aortocoronary bypass graft]Onset: 47-69-0175VrjpjfvsLpcph liver diseases (2 sources)Abnormal levels of other serum enzymes; Translations: [Abnormal levels of other serum enzymes]Onset: 66-27-2083Tbdohhoy Results Test NameValueInterpretationReference NnvpnCjwskxdd18je ----- Message ----- From: Bryce Huerta MD Sent: 03/27/2025 12:18 PM EDT To: Sunita Blanco MA His echo was ok, follow up as planned. Advised patient of Dr. Huerta's finding. Patient verbalized understanding.NormalUnKettering Health DaytonOrders Onlyon 06-19-6795Mnnhbb [id number] Gretchen Delatorre 1950 M Date Provider Department Center 03/24/2025 [id number], [facility] RONAL Monsalve Family History Family history unknown: YesNormalUniversProMedica Defiance Regional HospitalOffice Visit on 72-61-1125Ehxmzm-up [id number] Gretchen Delatorre 1950 M Date Provider Department Center 10/18/2024 [facility]YCE HUERTA RONAL Monsalve Family History Family history unknown: Yes Level of Service:36743 [place] OFFICE/OUTPATIENT ESTABLISHED LOW MDM 20 [facility] CampusPathology Noteon 76-44-2285Zmhuwzbfg Note [id number]#1.00TIFKettering Health SpringfieldAmbulatory Visit Summaryon 24-23-0102Fpaxaeiomk Visit Summary GRETCHEN DELATORRE :1950 Visit Date:03/02/2024 [...] you for choosing us for your care. [facility] HospitalGeneral Surgery Office/Clinic Noteon 46-53-0570Saferqp Surgery Office/Clinic NoteChief Complaint in-office excisional biopsy [...] Recorded SARS-CoV-2 (COVID-19) mRNA BNT-162b2 vax 02/06/2021 RecordedCleveland Clinic Hillcrest HospitalComment on above:Result Comment: Electronically Signed By: Haroon DON MD\Date and Time Signed: 03/02/24 15:16 Feliberto 03-02-2024L Specimen: [id number] Received: 03/03/24 Status: MICHELLE Santana Num: [id number] Spec Type: Surgical Subm Dr: Haroon Don MD FACS Tissues: A Skin-Other than Cyst, tag, debridement or plastic repair (RT CHEST WALL) Procedures: HE/4, Gross/Micro L4 Age/ Patient Sex Location Account Attending Physician Gretchen Delatorre 73/M [place] [id number] Haroon Don MD FACS SPEC NUM: [id number] RECD: 03/03/24 STATUS: MICHELLE SANTANA NUM: [id number] PIYUSH: 03/02/24- DR: Haroon Don MD FACS ENTERED: 03/03/[address] [facility] [address]: Ava Salomon SPEC TYPE: Surgical [...] skin tag over several years CPT Codes 86859 Specimen: [id number] Received: 03/03/24 Status: MICHELLE Santana Num: [id number] Spec Type: Surgical Subm Dr: Haroon Don MD FACS Tissues: A Skin-Other than Cyst, tag, debridement or plastic repair (RT CHEST WALL) Procedures: , Gross/Micro L4 Patient: Gretchen Delatorre [id number] (Continued) Signed (signature on file) Misael Erazo MD 03/04/[address] [place] [address] Physician GroupAmbulatory Visit Summaryon 43-03-2465Nwrpctogbq Visit Summary GRETCHEN DELATORRE A :1950 Visit [...] JAIME, Haroon Ellison Where: General Surgery [facility]janey/[facility] Facesheeton 43-28-1323Pmjxgqlmp [id number]#1.00TIFKettering Health SpringfieldPhysician Referralon 07-69-4025Uphvhachv Referral [id number]#1.00TIFKettering Health SpringfieldPhysician Referralon 03-53-7346Nqpeblbgt Referral [id number]#1.00[facility] HospitalOCC BLD IMMUNO SCREENon 41-35-7992MQWBEC BLOODPositiveAbnormalNEGATIVEThe [facility] HospitalComment on above:Performed By: #### CMP, CK, LIPID #### [facility] [address] [address] [address] Tyrell Brooks AUTO DIFFon 46-27-5770WRZZ #0.0 103/ulNormal0.0-0.1[facility] HospitalComment on above:Performed By: #### CBC #### [facility] [address] [address] [address] Tyrell Amandasophils/100 WBC (Bld)0.5 %Normal0.2-2.0[facility] Comment on above:Performed By: #### CBC #### [facility] [address] [address] [address] Tyrell Crenshaw #0.2 103/ulNormal0.0-0.7The [facility] HospitalComment on above: Performed By: #### CBC #### [facility] [address] [place] [address] Dr. Tyrell Cernaosinophils/100 WBC (Bld)2.6 %Normal0.9-7.0The [facility] Comment on above:Performed By: #### CBC #### [facility] [address] [place] [address] Dr. Tyrell Cernarythrocyte distribution width (RBC) [Ratio]11.7 %Jwdbil25.0-15.0 [facility] on above:Performed By: #### CBC #### [facility] [address] [place] [address] Dr. Tyrell CasillasHematocrit (Bld) [Volume fraction]39.9 %Critically low42.0-54.0 The [facility] HospitalComhenry ford [facility] on above:Performed By: #### CBC #### [facility] [address] [place] [address] Dr. Tyerll CasillasHemoglobin (Bld) [Mass/Vol]13.9 g/dLCritically low14.0-18.0The [facility] HospitalComment on above:Performed By: #### CBC #### [facility] [address] [place] [address] Dr. Tyrell Bermeo #0.02 10e3/ulNormal0.00-0.03The [facility] HospitalComhenry for[facility] hospital on above:Performed By: #### CBC #### [facility] [address] [place] [address] Dr. Tyrell Bermeo %0.3 %Normal0.0-0.5The [facility] on above: Performed By: #### CBC #### [facility] [address] [place] [address] Dr. Tyrell TalleyH #1.7 103/ulNormal1.2-3.8The [facility] HospitalComhenry [facility] hospital on above:Performed By: #### CBC #### [facility] [address] [place] [address] Dr. Tyrell Woodruffmphocytes/100 WBC (Bld)28.1 %Zkhpyr25.5-60.0The [facility] HospitalComhenry [facility] hospital on above:Performed By: #### CBC #### [facility] [address] [place] [address] Dr. Tyrell CasillasMANUAL DIFF REQNONormalThe [facility] HospitalComment on above: Performed By: #### CBC #### [facility] [address] [address] [address] Tyrell Villarreal (RBC) [Entitic mass]32.3 twXrdfee77.9-34.0The [facility] HospitalComment on above:Performed By: #### CBC #### [facility] [address] [place] [address] Dr. Tyrell Villarreal (RBC) [Mass/Vol]34.8 g/rYOepkki67.9-35.2The [facility] HospitalComment on above:Performed By: #### CBC #### [facility] [address] [place] [address] Dr. Tyrell Villarreal (RBC) [Entitic vol]92.8 sESrozvf55.0-94.0The [facility] HospitalComment on above:Performed By: #### CBC #### [facility] [address] [place] [address] Dr. Tyrell Elizondo #0.5 103/ulNormal0.3-0.8The [facility] HospitalComment on above:Performed By: #### CBC #### [facility] [address] [place] [address] Dr. Tyrell Patelocytes/100 WBC (Bld)8.5 %Normal1.7-12.0[facility] Comment on above:Performed By: #### CBC #### [facility] [address] [place] [address] Dr. Tyrell Willson #3.5 103/ulNormal1.4-6.5The [facility] HospitalComment on above:Performed By: #### CBC #### [facility] [address] [place] [address] Dr. Tyrell Oconnorutrophils/100 WBC (Bld)60.0 %Lujsvb32.0-75.0The [facility] HospitalComment on above:Performed By: #### CBC #### [facility] [address] [place] [address] Dr. Tyrell Chowdhurylet mean volume (Bld) [Entitic vol]8.3 fLCritically low 9.5-13.5The [facility] on above:Performed By: #### CBC #### [facility] [address] [address] [address] Tyrell CasillasPLT200 103/uvGjffzf404-697Ltj [facility] on above: Performed By: #### CBC #### [facility] [address] [address] [address] Tyrell CasillasRBC4.30 106/ulCritically low4.70-6.10The [facility] HospitalComhenry [facility] hospital on above:Performed By: #### CBC #### [facility] [address] [place] [address] Dr. Tyrell CasillasWBC5.9 103/ulNormal4.0-11.0The [facility] HospitalComhenry [facility] on above: Performed By: #### CBC #### [facility] [address] [place] [address] Dr. Tyrell CasillasCPKomartin 55-60-7629WW [Catalytic activity/Vol]505 U/LCritically high 39-308The [facility] on above:Performed By: #### CK #### [facility] [address] [place] [address] Dr. Tyrell CasillasFRLUZ MARINA T3on 84-77-5101IBSI T32.98 pg/mlLNormal2.18-3.98[facility] on above:Performed By: #### T4, CMP, TSH, FT3, LIPID #### [facility] [address] [place] [address] Dr. Tyrell CasillasGLYCOHEMOGLOBIN A1Con 38-02-3202FEF RECOMMENDATIONSEE BELOWNormal The [facility] HospitalComhenry [facility] on above:Result Comment: ADA RECOMMENDED LIMIT 4.0 - 6.0 ADA THERAPEUTIC TARGET < 7.0 ACTION SUGGESTED > 7.0Performed By: #### CMP, CK, LIPID #### [facility] [address] [place] [address] Dr. Tyrell CasillasGlucose [Mass/Vol]131 mg/dLNormalThCleveland Clinic Fairview HospitalComhenry ford [facility] hospital on above:Performed By: #### CMP, CK, LIPID #### [facility] [address] [address] [address] Tyrell CasillasHbA1c (Bld) [Mass fraction]6.2 %Normal4.5-6.2The [facility] Hospitalment on above:Performed By: #### CMP, CK, LIPID #### [facility] [address] [address] [address] Tyrell HuangID PROFILEon 75-18-1985NZGY-HDL RATIO NORMSEE BELOWPremier Health Miami Valley Hospital NorthComment on above:Result Comment: 3.3 - 4.4 LOW RISK 4.4 - 7.1 AVERAGE RISK 7.1 - 11.0 MODERATE RISK >11.0 HIGH RISKPerformed By: #### T4, CMP, TSH, FT3, LIPID #### [facility] [address] [place] [address] Dr. Tyrell Harperesterol [Mass/Vol]150 mg/dLNormal<=200[facility] Comment on above:Performed By: #### T4, CMP, TSH, FT3, LIPID #### [facility] [address] [address] [address] Tyrell Harperesterol in HDL [Mass/Vol]42 mg/qICzxcij17-30XivCincinnati Shriners Hospital on above:Performed By: #### T4, CMP, TSH, FT3, LIPID #### [facility] [address] [address] [address] Tyrell Harperesterol in LDL [Mass/Vol]84.2 mg/dLPremier Health Miami Valley Hospital NorthComhenry ford jackson hospital on above:Performed By: #### T4, CMP, TSH, FT3, LIPID #### [facility] [address] [address] [address] Tyrell Rosario.total/Cholesterol in HDL [Mass ratio]3.6 {ratio} NormalThe [facility] HospitalComhenry ford jack[facility] hospital on above:Performed By: #### T4, CMP, TSH, FT3, LIPID #### [facility] [address] [place] [address] Dr. Tyrell SchultzL NORMAL> or = 60 mg/dl - LOW CARDIOVASCULAR RISK <40 mg/dl - HIGH CARDIOVASCULAR RISKPremier Health Miami Valley Hospital NorthComment on above:Performed By: #### T4, CMP, TSH, FT3, LIPID #### [facility] [address] [place] [address] Dr. Tyrell Garcia CALC NORMALSEE BELOWPremier Health Miami Valley Hospital NorthComment on above:Result Comment: <100 mg/dl OPTIMAL 100 - 129 mg/dl NEAR OR ABOVE OPTIMAL 130 - 159 mg/dl BORDERLINE HIGH 160 - 189 mg/dl HIGH >190 mg/dl VERY HIGH Performed By: #### T4, CMP, TSH, FT3, LIPID #### [facility] [address] [place] [address] Dr. Tyrell CasillasTriglyceride [Mass/Vol]119 mg/dLNormal<=150The [facility] Comment on above:Performed By: #### T4, CMP, TSH, FT3, LIPID #### [facility] [address] [place] [address] Dr. Tyrell CasillasVLDL CALC23.8 mg/dLNoLima City HospitalComment on above: Performed By: #### T4, CMP, TSH, FT3, LIPID #### [facility] [address] [place] [address] Dr. Tyrell CasillasPRODiego 14(COMP METB)on 14-60-6661Eyuhbnx [Mass/Vol]4.5 g/dLNormal 3.4-5.0The [facility] HospitalComment on above:Performed By: #### T4, CMP, TSH, FT3, LIPID #### [facility] [address] [place] [address] Dr. Tyrell CasillasAlbumin/Globulin [Mass ratio]1.1 {ratio}NormalThe [facility] HospitalComment on above:Performed By: #### T4, CMP, TSH, FT3, LIPID #### [facility] [address] [place] [address] Dr. Tyrell Haile [Catalytic activity/Vol]57 U/KZjwvqw07-903Qpz [facility] Hospitalment on above:Performed By: #### T4, CMP, TSH, FT3, LIPID #### [facility] [address] [address] [address] Tyrell Martin [Catalytic activity/Vol]49 U/VLjlcuj48-58Smu [facility] HospitalComment on above:Performed By: #### T4, CMP, TSH, FT3, LIPID #### [facility] [address] [address] [address] Tyrell Barbosaon gap [Moles/Vol]12.7 mmol/LNormalParma Community General Hospital Comment on above:Performed By: #### T4, CMP, TSH, FT3, LIPID #### [facility] [address] [place] [address] Dr. Tyrell Mondragon [Catalytic activity/Vol]35 U/DYqxvkj40-07Tfw [facility] HospitalComment on above:Performed By: #### T4, CMP, TSH, FT3, LIPID #### [facility] [address] [place] [address] Dr. Tyrell CasillasBilirubin [Mass/Vol]0.4 mg/dLNormal0.2-1.0[facility] Comment on above:Performed By: #### T4, CMP, TSH, FT3, LIPID #### [facility] [address] [place] [address] Dr. Tyrell CasillasCalcium [Mass/Vol]9.5 mg/dLNormal8.5-10.1[facility] Comment on above:Performed By: #### T4, CMP, TSH, FT3, LIPID #### [facility] [address] [place] [address] Dr. Tyrell CasillasChloride [Moles/Vol]106 mmol/KIllpdd33-355Whm [facility] Comment on above:Performed By: #### T4, CMP, TSH, FT3, LIPID #### [facility] [address] [place] [address] Dr. Tyrell CasillasCO2 [Moles/Vol]27.4 mmol/OFmlexd91.0-32.0[facility] Comment on above:Performed By: #### T4, CMP, TSH, FT3, LIPID #### [facility] [address] [address] [address] Tyrell CasillasCreatinine [Mass/Vol]0.96 mg/dLNormal0.70-1.30The [facility] HospitalComment on above:Performed By: #### T4, CMP, TSH, FT3, LIPID #### [facility] [address] [address] [address] Tyrell CernaGFR-AF [place]IZ[place]>60Normal>=60The [facility] HospitalComment on above:Performed By: #### T4, CMP, TSH, FT3, LIPID #### [facility] [address] [place] [address] Dr. Tyrell CernaGFR-NON AF [place]>60Normal>=60The [facility] Hospitalment on above:Performed By: #### T4, CMP, TSH, FT3, LIPID #### [facility] [address] [place] [address] Dr. Tyrell CasillasGlobulin (S) [Mass/Vol]4.0 g/dLNormalThe [facility] HospitalComment on above:Performed By: #### T4, CMP, TSH, FT3, LIPID #### [facility] [address] [place] [address] Dr. Tyrell CasillasGlucose [Mass/Vol]101 mg/tBJdnyph59-896Jqp [facility] Comment on above:Performed By: #### T4, CMP, TSH, FT3, LIPID #### [facility] [address] [place] [address] Dr. Tyrell CasillasPotassium [Moles/Vol]4.1 mmol/LNormal3.5-5.1The [facility] Comment on above:Performed By: #### T4, CMP, TSH, FT3, LIPID #### [facility] [address] [place] [address] Dr. Tyrell CasillasProtein [Mass/Vol]8.5 g/dLCritically high6.4-8.2The [facility] Hospitalment on above:Performed By: #### T4, CMP, TSH, FT3, LIPID #### [facility] [address] [place] [address] Dr. Yilan ChangSodium [Moles/Vol]142 mmol/LSqmbwx038-469Udi [facility] Comment on above:Performed By: #### T4, CMP, TSH, FT3, LIPID #### [facility] [address] [place] [address] Dr. Tyrell CasillasUrea nitrogen [Mass/Vol]18.0 mg/dLNormal7.0-18.0The [facility] HospitalComment on above:Performed By: #### T4, CMP, TSH, FT3, LIPID #### [facility] [address] [place] [address] Dr. Tyrell CasillasUrea nitrogen/Creatinine [Mass ratio]18.8 mg/mgNoLima City HospitalComment on above:Performed By: #### T4, CMP, TSH, FT3, LIPID #### [facility] [address] [place] [address] Dr. Tyrell CasillasT4on 99-44-0372P5 [Mass/Vol]5.60 ug/dLNormal4.50-12.10The [facility] HospitalComment on above:Performed By: #### T4, CMP, TSH, FT3, LIPID #### [facility] [address] [place] [address] Dr. Tyrell Xiao 22-97-0509XZE7.892 uIU/mLNormal0.358-3.740[facility] HospitalComment on above:Performed By: #### T4, CMP, TSH, FT3, LIPID #### [facility] [address] [place] [address] Dr. Tyrell CasillasCPKomartin 48-20-9196VZ [Catalytic activity/Vol]444 U/LCritically high 39-308The [facility] HospitalComment on above:Performed By: #### CMP, CK, LIPID #### [facility] [address] [place] [address] Dr. Tyrell CasillasLIPID PROFILEon 38-05-7712ZDTB-HDL RATIO NORMSEE [facility] HospitalComment on above:Result Comment: 3.3 - 4.4 LOW RISK 4.4 - 7.1 AVERAGE RISK 7.1 - 11.0 MODERATE RISK >11.0 HIGH RISKPerformed By: #### CMP, CK, LIPID #### [facility] [address] [place] [address] Dr. Tyrell CasillasCholesterol [Mass/Vol]132 mg/dLNormal<=200The [facility] Comment on above:Performed By: #### CMP, CK, LIPID #### [facility] [address] [place] [address] Dr. Tyrell CasillasCholesterol in HDL [Mass/Vol]39 mg/dLCritically moq57-76XxuParma Community General HospitalComment on above:Performed By: #### CMP, CK, LIPID #### [facility] [address] [place] [address] Dr. Tyrell CasillasCholesterol in LDL [Mass/Vol]72.8 mg/dLNoLima City HospitalComment on above:Performed By: #### CMP, CK, LIPID #### [facility] [address] [place] [address] Dr. Tyrell Harperesterbg.total/Cholesterol in HDL [Mass ratio]3.4 {ratio} NormalParma Community General HospitalComment on above:Performed By: #### CMP, CK, LIPID #### [facility] [address] [place] [address] Dr. Tyrell Beaver NORMAL> or = 60 mg/dl - LOW CARDIOVASCULAR RISK <40 mg/dl - HIGH CARDIOVASCULAR RISKPremier Health Miami Valley Hospital NorthComment on above:Performed By: #### CMP, CK, LIPID #### [facility] [address] [place] [address] Dr. Tyrell CasillasLDL CALC NORMALSEE BELOWPremier Health Miami Valley Hospital NorthComment on above:Result Comment: <100 mg/dl OPTIMAL 100 - 129 mg/dl NEAR OR ABOVE OPTIMAL 130 - 159 mg/dl BORDERLINE HIGH 160 - 189 mg/dl HIGH >190 mg/dl VERY HIGH Performed By: #### CMP, CK, LIPID #### [facility] [address] [place] [address] Dr. Tyrell CasillasTriglyceride [Mass/Vol]101 mg/dLNormal<=150The [facility] Comment on above:Performed By: #### CMP, CK, LIPID #### [facility] [address] [place] [address] Dr. Tyrell YorkLDL CALC20.2 mg/dLNormalThe [facility] HospitalComment on above: Performed By: #### CMP, CK, LIPID #### [facility] [address] [address] [address] Tyrell CasillasPROF 14(COMP METB)on 10-33-5011Jzihglr [Mass/Vol]4.4 g/dLNormal 3.4-5.0The [facility] HospitalComment on above:Performed By: #### CMP, CK, LIPID #### [facility] [address] [place] [address] Dr. Tyrell CasillasAlbumin/Globulin [Mass ratio]1.3 {ratio}NormalThe [facility] HospitalComment on above:Performed By: #### CMP, CK, LIPID #### [facility] [address] [place] [address] Dr. Tyrell Haile [Catalytic activity/Vol]55 U/JTueera09-410Fmn [facility] HospitalComment on above:Performed By: #### CMP, CK, LIPID #### [facility] [address] [place] [address] Dr. Tyrell Martin [Catalytic activity/Vol]48 U/ISveiyf11-20Txx [facility] HospitalComment on above:Performed By: #### CMP, CK, LIPID #### [facility] [address] [place] [address] Dr. Tyrell Whittaker gap [Moles/Vol]12.1 mmol/LNormalThe [facility] Comment on above:Performed By: #### CMP, CK, LIPID #### [facility] [address] [place] [address] Dr. Tyrell Mondragon [Catalytic activity/Vol]35 U/TOycejl24-85Vwy [facility] HospitalComment on above:Performed By: #### CMP, CK, LIPID #### [facility] [address] [place] [address] Dr. Tyrell CasillasBilirubin [Mass/Vol]0.4 mg/dLNormal0.2-1.0[facility] Comment on above:Performed By: #### CMP, CK, LIPID #### [facility] [address] [place] [address] Dr. Tyrell CasillasCalcium [Mass/Vol]9.0 mg/dLNormal8.5-10.1The [facility] Comment on above:Performed By: #### CMP, CK, LIPID #### [facility] [address] [place] [address] Dr. Tyrell CasillasChloride [Moles/Vol]106 mmol/CWfrxwk54-967Ucw [facility] Comment on above:Performed By: #### CMP, CK, LIPID #### [facility] [address] [place] [address] Dr. Tyrell CasillasCO2 [Moles/Vol]25.0 mmol/WVkserw83.0-32.0[facility] Comment on above:Performed By: #### CMP, CK, LIPID #### [facility] [address] [place] [address] Dr. Tyrell CasillasCreatinine [Mass/Vol]0.85 mg/dLNormal0.70-1.30The [facility] HospitalComment on above:Performed By: #### CMP, CK, LIPID #### [facility] [address] [place] [address] Dr. Tyrell CernaGFR-AF [place] CITIZ[place]>60Normal>=60The [facility] HospitalComment on above:Performed By: #### CMP, CK, LIPID #### [facility] [address] [place] [address] Dr. Tyrell CernaGFR-NON AF [place] CITIZEN>60Normal>=60The [facility] HospitalComment on above:Performed By: #### CMP, CK, LIPID #### [facility] [address] [place] [address] Dr. Tyrell CasillasGlobulin (S) [Mass/Vol]3.4 g/dLNormalThe [facility] HospitalComment on above:Performed By: #### CMP, CK, LIPID #### [facility] [address] [address] [address] Tyrell CasillasGlucose [Mass/Vol]106 mg/eSYkwsuf94-268JzeParma Community General Hospital Comment on above:Performed By: #### CMP, CK, LIPID #### [facility] [address] [address] [address] Tyrell CasillasPotassium [Moles/Vol]4.1 mmol/LNormal3.5-5.1The [facility] Comment on above:Performed By: #### CMP, CK, LIPID #### [facility] [address] [address] [address] Tyrell CasillasProtein [Mass/Vol]7.8 g/dLNormal6.4-8.2The [facility] Comment on above:Performed By: #### CMP, CK, LIPID #### [facility] [address] [address] [address] Tyrell CasillasSodium [Moles/Vol]139 mmol/UBfuwhc166-223JrcParma Community General Hospital Comment on above:Performed By: #### CMP, CK, LIPID #### [facility] [address] [address] [address] Tyrell CasillasUrea nitrogen [Mass/Vol]15.0 mg/dLNormal7.0-18.0[facility] HospitalComment on above:Performed By: #### CMP, CK, LIPID #### [facility] [address] [address] [address] Tyrell Watts nitrogen/Creatinine [Mass ratio]17.6 mg/mgNormalThe [facility] HospitalComment on above:Performed By: #### CMP, CK, LIPID #### [facility] [address] [place] [address] Dr. Tyrell CasillasCoding Summaryon 94-31-1283Lqkkgp SummaryCODING DATE: 05/31/2020 [facility] STATUS: Home PAYOR: Medicare MC APC DESCRIPTION [...] By: Eugenie George Date Saved: 05/31/2020 01:32 [facility] BeachwoodProvider Orderson 35-84-4223Sppbpfmz [id number]#1.00OT[facility] HospitalCoding Summaryon 20-02-2151Hsombi SummaryCODING DATE: 05/19/2020 FINAL [facility] STATUS: Home PAYOR: Medicare MC APC DESCRIPTION 5115 Level 5 Musculoskeletal Procedures ADMIT DX: REASON FOR VISIT DX: M16.11 Unilateral primary osteoarthritis, right hip FINAL DX: PRINCIPAL: M16.11 Unilateral primary osteoarthritis, right hip SECONDARY: I10 Essential (primary) hypertension 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 Z86.73 Personal history of transient ischemic attack (TIA), and cerebral infarction without residual deficits [facility] APC STAT DESCRIPTION DOCTOR NAME DATE 90188 5115 J1 Arthroplasty, acetabular Quirino, Bairon And [...] Nicci Kee Revised Date Saved: 05/18/2020 12:22 [facility] BeachwoodConsent Formson 74-24-7763Mtjzgdz [id number]#1.00OTTrumbull Memorial HospitalMedication Managementon 10-14-2766Mqvinzdipl Management [id number]#1.00OTGTWVUMedicine [facility] Hospital Outside Recordson 85-37-0005Yxibzuf Records [id number]#1.00[facility] Provider Ord[place] 44-81-5405Lobfpbkq Orders [id number]#1.00[facility] Telemetry Stripson 98-35-0215Bjslcuzoa Strips [id number]#1.00[facility].Auto Diff 1on 09-17-7117Tzpt [place] %7 %Normal1-12[facility] HospitalComment on above: Performed By: #### [id number], 39362989, [id number] #### [facility] (DEFAULT) [address] [place] [address] 58859Yqit Abs#0.0 v16Gcvfwg5.0-0.2[facility] HospitalComment on above:Performed By: #### 4019532, 84281054, [id number] #### [facility] (DEFAULT) [address] [place] [address] 78310Twrhexnak/100 WBC (Bld)0.2 %Normal0.2-2.0[facility] Hospital Comment on above:Performed By: #### 1348504, 89080999, [id number] #### [facility] (DEFAULT) [address] [place] [address] 03350Bsg Abs#0.1 o47Cpydrm2.0-0.4[facility] HospitalComment on above:Performed By: #### 6137286, 34129633, [id number] #### [facility] (DEFAULT) [address] [place] [address] 41908Hltyzndqenu/100 WBC (Bld)1.5 %Normal0.9-4.0[facility] HospitalComment on above:Performed By: #### 3061193, 71795245, [id number] #### [facility] (DEFAULT) [address] [place] [address] 16284Ednmwrkvbzz (Bld) [#/Vol]1.3 c36Hteezk7.3-2.9[facility] HospitalComment on above:Performed By: #### 4881262, 80691709, [id number] #### [facility] (DEFAULT) [address] [place] [address] 13825Jjzuakfqhlt/100 WBC (Bld)15 %Hyscpz71-62Fguoydbc Hospital Comment on above:Performed By: #### 0358105, 35681567, [id number] #### [facility] (DEFAULT) [address] [place] [address] 68348Yfou Abs#0.6 c72Zetsmi5.0-0.8[facility] HospitalComment on above:Performed By: #### 4358576, 38767535, 3137251061 #### [facility] (DEFAULT) [address] [place] [address] 69982Qybr Abs#6.4 n88Giipby8.5-9.2[facility] HospitalComment on above:Performed By: #### 0336722, 16495846, [id number] #### [facility] (DEFAULT) [address] [place] [address] 17768Ecuazuvlltg/100 WBC (Bld)76 %Fehhcz45-51Qlhfyebb Hospital Comment on above:Performed By: #### 4732517, 23996839, [id number] #### [facility] (DEFAULT) [address] [place] [address] 69794CXH w/ Auto Diffon 78-24-4062Ztbsshiynua distribution width (RBC) [Ratio]11.9 %Prbymx63.5-15.0[facility] HospitalComment on above: Performed By: #### 0096225, 76559007, [id number] #### [facility] (DEFAULT) [address] [place] [address] 66001Pasovwqsip (Bld) [Volume fraction]26.9 %Low34.8-51.9 [facility] HospitalComment on above:Performed By: #### 3408231, 12770884, [id number] #### [facility] (DEFAULT) [address] [place] [address] 62559Ipbvmlzdot (Bld) [Mass/Vol]9.2 g/dLLow11.8-17.7[facility] HospitalComment on above:Performed By: #### 8583536, 95186711, [id number] #### [facility] (DEFAULT) [address] [place] [address] 31689Vgt Diff?AutoNormalPromedica [facility] Hospital HospitalComment on above: Performed By: #### 8730209, 39848987, [id number] #### [facility] (DEFAULT) [address] [place] [address] 89455USJ (RBC) [Entitic mass]32 xtUoydwu72-92Ibrlhdlj Hospital Comment on above:Performed By: #### 3940079, 04788127, [id number] #### [facility] (DEFAULT) [address] [place] [address] 02960KUHI (RBC) [Mass/Vol]34 g/hBSlmijz38-54Lxdukmqp Hospital Comment on above:Performed By: #### 8082557, 38366396, [id number] #### [facility] (DEFAULT) [address] [place] [address] 52136LLZ (RBC) [Entitic vol]94 xJRkpfop64-597Oopdebqs Hospital Comment on above:Performed By: #### 9594500, 14289827, 0194794151 #### [facility] (DEFAULT) [address] [place] [address] 41067Awnktwyy mean volume (Bld) [Entitic vol]9.4 fLNormal 6.3-10.2MWayne HospitalComment on above:Performed By: #### 1282411, 50537660, [id number] #### [facility] (DEFAULT) [address] [place] [address] 61027Fexyxbsdw (Bld) [#/Vol]203 z88Rgrlne255-922Ucgqjyim HospitalComment on above:Performed By: #### 5727939, 05503005, [id number] #### [facility] (DEFAULT) [address] [place] [address], [place] [address]ZAO (Bld) [#/Vol]2.87 n40Ykm8.70-5.30[facility] Comment on above:Performed By: #### 8918459, 10980491, 2847767390 #### [facility] (DEFAULT) [address] [place] [address] 52419GTV (Bld) [#/Vol]8.5 a31Cxyxps4.5-10.5[facility] Comment on above:Performed By: #### 2241161, 56858714, [id number] #### [facility] (DEFAULT) [address] [place] [address] 08861Kwqgwdipj Noteon 90-16-1186Fxntnafqm NoteEducation Materials POST OPERATIVE TOTAL HIP DISCHARGE [...] can be done to rule of a DVT.[facility] HospitalExtra [facility] 00-42-4578Xtsy CollectedSelect Medical [facility] Clinic Rehabilitation Hospital, AvonComment on above:Performed By: #### [id number], 57538563, [id number] #### [facility] (DEFAULT) [address] [place] [address] 82821Qzrqajkhn Patient Summaryon 95-00-5904Dfmnxnzoc Patient Summary[address] [address] Patient Discharge Instructions Name: GRETCHEN DELATORRE : 1950 Patient [address] [address] [facility] [address] [address] Primary Care Provider: Name: DAKSHA OREILLY After you are discharged if you find you have any questions, please, call [phone] ext [phone] to speak to a nurse. Discharge Diagnosis: Primary osteoarthritis of right hip Prescription Information: If you have been given a prescription for narcotics, seek immediate medical attention if you have any difficulty breathing or any sudden status changes such as confusion andsleepiness. If you or anyone you know is experiencing suicidal thoughts, mental health, alcohol and/or drug addiction problems; contact the [facility] 26/05 Crisis Hotline -Text 4HUCQ to 262619. If you received any narcotics, sedation, or [...] business decisions or sign any legal documents [facility] would like to thank you for allowing us to assist you with your healthcare needs.The following includes patient education materials and information regarding your injury/illness. GRETCHEN DELATORRE has been given the following list of follow-up instructions, prescriptions, and patient education materials: Follow-up Instructions With: Address: When: [place] [address] [facility] [address] [place] [address] Business (2) 05/25/2020 2:00 PM With: Address: When: DAKSHA OREILLY [address] [place] [address], [place] [address] Business (1) Medications During the [...] Centers for Disease Control and Prevention July 2014No[facility] Nutrition Noteon 88-50-0358Ljcnqsdbq NotePt eating well avg 70-100% of meals and taking supplements as ordered. No new wts. Labs reviewed, post op anemia noted. No new rec'd at this time. Will continue to follow.[facility] Pharmacy Noteon 14-25-7381Yuivmmcu NoteI have personally reviewed the patient's current [...] Echavarria [Verified on: 05/17/2020 08:32 EDT] [facility] - Nurseon 05-17-2020 Progress Note - [...] [Verified on: 05/17/2020 17:30 EDT] Bilger RN, KimberAC[facility] Note-Physicianon 05-17-2020 Progress Note-PhysicianDATE OF POSTOPERATIVE FOLLOW [...] Win's office. Bert Aguila DO JOB #: [id number] bk [Electronically Signed on: 05/18/2020 11:35 EDT] BERT AGUILA DO [Verified on: 05/18/2020 11:35 EDT] BERT AGUILA DO [Transcribed on: 05/17/2020 14:48 EDT] GDUNParma Community General Hospital.Auto Diff 1on 08-53-4470Ztdi [place] %9 %Normal1-12 [facility] HospitalComment on above:Performed By: #### 5745115, 91936291, [id number] #### [facility] (DEFAULT) [address] [place] [address] 24061Ojcj Abs#0.0 m49Krzehf6.0-0.2[facility] HospitalComment on above:Performed By: #### 6939568, 92275297, [id number] #### [facility] (DEFAULT) [address] [place] [address] 63564Zzlcxyogj/100 WBC (Bld)0.1 %Low0.2-2.0[facility] Comment on above:Performed By: #### 6406952, 92010555, [id number] #### [facility] (DEFAULT) [address] [place] [address] 19421Usl Abs#0.0 x13Kdgbgz6.0-0.4[facility] HospitalComment on above:Performed By: #### 7513465, 11016252, [id number] #### [facility] (DEFAULT) [address] [place] [address] 49571Yvnficlkmsz/100 WBC (Bld)0.2 %Low0.9-4.0[facility] Hospital Comment on above:Performed By: #### 1837507, 44131946, [id number] #### [facility] (DEFAULT) [address] [place] [address] 19634Xphjkzhzgyv (Bld) [#/Vol]1.8 m24Xkuvaj0.3-2.9[facility] HospitalComment on above:Performed By: #### 3604853, 69961902, 7039031152 #### [facility] (DEFAULT) [address] [place] [address] 60811Pyyqwonobfi/100 WBC (Bld)14 %Wzlszo95-52Xoclnnbf Hospital Comment on above:Performed By: #### 8043784, 49808270, [id number] #### [facility] (DEFAULT) [address] [place] [address] 28034Cbkv Abs#1.1 d43Azer1.0-0.8[facility] HospitalComment on above:Performed By: #### 7196904, 06501902, [id number] #### [facility] (DEFAULT) [address] [place] [address] 07926Glum Abs#9.9 z20Unqv3.5-9.2[facility] HospitalComment on above:Performed By: #### 2123089, 11936863, 4885719580 #### [facility] (DEFAULT) [address] [place] [address] 35491Jmkkkgeugdq/100 WBC (Bld)77 %Qeuaok57-83Txkvrigu Hospital Comment on above:Performed By: #### 4040582, 54938923, 5904085972 #### [facility] (DEFAULT) [address] [place] [address] 42438HYV w/ Auto Diffon 03-02-8335Nuikzjvypyw distribution width (RBC) [Ratio]12.1 %Qxazkr76.5-15.0[facility] HospitalComment on above: Performed By: #### 4790629, 16127526, [id number] #### [facility] (DEFAULT) [address] [place] [address] 73611Leohzxexlb (Bld) [Volume fraction]30.8 %Low34.8-51.9 [facility] HospitalComment on above:Performed By: #### 4779537, 96126521, [id number] #### [facility] (DEFAULT) [address] [place] [address] 02945Dmkftyupaj (Bld) [Mass/Vol]10.5 g/dLLow11.8-17.7[facility] HospitalComment on above:Performed By: #### 9457981, 75357037, [id number] #### [facility] (DEFAULT) [address] [place] [address] 66066Hwk Diff?AutoNormalPromedica [facility] Hospital HospitalComment on above: Performed By: #### 0152431, 73668211, [id number] #### [facility] (DEFAULT) [address] [place] [address] 60782SQQ (RBC) [Entitic mass]32 zuThbuor34-08Pykhlqjz Hospital Comment on above:Performed By: #### 0656985, 45499270, [id number] #### [facility] (DEFAULT) [address] [place] [address] 10754LSCI (RBC) [Mass/Vol]34 g/zBPyywbw10-62Hobhlcfu Hospital Comment on above:Performed By: #### 9527263, 81722196, 3825693890 #### [facility] (DEFAULT) [address] [place], [place] [address]V (RBC) [Entitic vol]93 hRNzfnis89-219Xaglcywl Hospital Comment on above:Performed By: #### 7894712, 29938057, 4494075995 #### [facility] (DEFAULT) [address] [place] [address] 22006Epveithh mean volume (Bld) [Entitic vol]9.2 fLNormal 6.3-10.2MWayne HospitalComment on above:Performed By: #### 4068354, 02351782, 5701547229 #### [facility] (DEFAULT) [address] [place] [address] 54736Tualyvtym (Bld) [#/Vol]238 i00Rknbts343-876Aqnnepqh HospitalComment on above:Performed By: #### 3357019, 98375317, 3939344588 #### [facility] (DEFAULT) [address] [place] [address] 73222UVU (Bld) [#/Vol]3.31 g26Jno0.70-5.30[facility] Comment on above:Performed By: #### 2956701, 05797526, [id number] #### [facility] (DEFAULT) [address] [place], [place] [address]MBU (Bld) [#/Vol]12.9 r70Qtsh4.5-10.5[facility] Comment on above:Performed By: #### 1339739, 87307411, [id number] #### [facility] (DEFAULT) [address], [place] [address]Lfqtxxyp Note-Physicianon 99-68-4912Wztbtfeo Note-PhysicianDATE OF POSTOPERATIVE ORTHOPEDIC PROGRESS NOTE: 05/16/2020 [...] x-ray. PROGNOSIS: Good. Bert Aguila, JOB #: [id number] bk [Electronically Signed on: 05/17/2020 11:24 EDT] AUSTIN AGUILAIrene WHITE [Verified on: 05/17/2020 11:24 EDT] BERT AGUILA DO [Transcribed on: 05/16/2020 13:06 EDT] [facility].Auto Diff 1on 62-67-7198Uepo [place] %1 %Normal1-12 [facility] HospitalComment on above:Performed By: #### 7471109, 23839829, [id number] #### [facility] (DEFAULT) [address] [place] [address] 23535Ptja Abs#0.0 j98Qyczso6.0-0.2[facility] HospitalComment on above:Performed By: #### 3371178, 78639402, [id number] #### [facility] (DEFAULT) [address] [place] [address] 01491Voaatgkrm/100 WBC (Bld)0.1 %Low0.2-2.0[facility] Comment on above:Performed By: #### 6418471, 64314249, 8775372029 #### [facility] (DEFAULT) [address] [place] [address] 76297Rqu Abs#0.0 q38Uojloh4.0-0.4[facility] HospitalComment on above:Performed By: #### 9235779, 11374439, 6573438312 #### [facility] (DEFAULT) [address] [place] [address] 44779Mrlulbmfcig/100 WBC (Bld)0.1 %Low0.9-4.0[facility] Comment on above:Performed By: #### 2972192, 34291245, [id number] #### [facility] (DEFAULT) [address] [place] [address] 69713Ubbyuwwejay (Bld) [#/Vol]0.4 t48Hmn9.3-2.9Magruder HospitalComment on above:Performed By: #### 3737191, 74453907, 7699271393 #### [facility] (DEFAULT) [address] [place] [address] 09176Mdmsljmlyvd/100 WBC (Bld)4 %Hbc90-59Awtcqoza Hospital Comment on above:Performed By: #### 0362651, 01737790, 7602367089 #### [facility] (DEFAULT) [address] [place] [address] 05979Msxc Abs#0.2 c31Wvnayq0.0-0.8Mag[facility]uder HospitalComment on above:Performed By: #### 1753455, 16819537, [id number] #### [facility] (DEFAULT) [address] [place] [address] 84599Vpgp Abs#10.0 k44Jhwp8.5-9.2[facility] HospitalComment on above:Performed By: #### 2355269, 65203266, [id number] #### [facility] (DEFAULT) [address] [place] [address] 22400Enshvhffvnp/100 WBC (Bld)94 %Iusb50-21Mlhapinq Hospital Comment on above:Performed By: #### 0863392, 00703393, [id number] #### [facility] (DEFAULT) [address] [place] [address] 39168Ttqibtgfxs Noteon 05-49-9778Ojarhncrgh NotePatient: GRETCHEN DELATORRE Age: 69 years Sex: [...] AAA (abdominal aortic aneurysm) / SNOMED CT 047101395 / Confirmed CAD (coronary artery disease) / SNOMED CT 52187433 / Confirmed Myocardial infarct / SNOMED CT 17946697 / Confirmed Resolved: CVA, old, cognitive deficits / SNOMED CT 1085471548 Histories Family History: Entire family history is negative. Procedure history: AAA - Abdominal aortic aneurysm (730114016) in 2012 at 62 Years. AAA - Abdominal aortic aneurysm (402045476) in 2005 at 55 Years. quaddruple cardiac byapss in 2005 at 55 Years. back surgery in 2004 at 54 Years. knee scope in 2004 at 54 Years. Comments: 04/27/2020 14:05 Abimbola Pickering RN right Hip arthroplasty (907305497) in 2004 at 53 Years. AAA - Abdominal aortic aneurysm (506704212) in 2003 at 52 Years. Social History [...] ECG interpretation: SR, occ PVCs, NSTWA. Plan [place] [employer]#(ASA) physical status classification: Class III. Anesthetic Preoperative Plan Anesthesia: General. . Anesthetic plan, risks, benefits, and alternatives discussed with the patient and/or family. Patient verbalized understanding. Informed consent was given. Consent was signed by the patient. [Electronically Signed on: 05/15/2020 08:26 EDT] Tom Casiano MD [Verified on: 05/15/2020 08:26 EDT] Tom Casiano MDOhioHealth Hardin [facility] Hospital w/ Auto Diffon 84-19-4242Yutjxtukuxo distribution width (RBC) [Ratio]12.1 %Ljnnxq57.5-15.0[facility] HospitalComment on above:Performed By: #### 5061898, 45549779, [id number] #### [facility] (DEFAULT) [address] [place] [address] 84092Bibstmkooi (Bld) [Volume fraction]33.2 %Low34.8-51.9 [facility] HospitalComment on above:Performed By: #### 4952371, 10067554, [id number] #### [facility] (DEFAULT) [address] [place] [address] 13903Nnygwiqosy (Bld) [Mass/Vol]11.5 g/dLLow11.8-17.7[facility] HospitalComment on above:Performed By: #### 9709070, 17436412, [id number] #### [facility] (DEFAULT) [address] [place] [address] 80271Sss Diff?AutoNormalPromedica [facility] HospitalComment on above: Performed By: #### 7018189, 48599822, [id number] #### [facility] [facility] ([facility] [address] [place] [address] 64636PFP (RBC) [Entitic mass]32 jlXrzozn48-29Jlojywjn Hospital Comment on above:Performed By: #### [id number], [id number], [id number] #### [facility] (DEFAULT) [address] [place] [address] 42069CHJB (RBC) [Mass/Vol]35 g/iAConghf49-49Gqxvtbqn Hospital Comment on above:Performed By: #### [id number], [id number], [id number] #### [facility] (DEFAULT) [address] [place] [address] 18191FUD (RBC) [Entitic vol]92 yZKbeckp20-236Wbjpdgyn Hospital Comment on above:Performed By: #### [id number], [id number], [id number] #### [facility] (DEFAULT) [address] [place] [address] 97743Sjbrsizh mean volume (Bld) [Entitic vol]9.5 fLNormal 6.3-10.2[facility] HospitalComment on above:Performed By: #### [id number], [id number], [id number] #### [facility] (DEFAULT) [address] [place] [address] 25617Xedippheu (Bld) [#/Vol]205 g75Ydonit753-425Jeijecqg HospitalComment on above:Performed By: #### [id number], [id number], [id number] #### [facility] (DEFAULT) [address] [place] [address] 83892JZP (Bld) [#/Vol]3.62 q22Nmo3.70-5.30[facility] Comment on above:Performed By: #### [id number], [id number], [id number] #### [facility] (DEFAULT) [address] [place] [address] 82159JDG (Bld) [#/Vol]10.6 s32Jvpv2.5-10.5[facility] Comment on above:Performed By: #### [id number], [id number], [id number] #### [facility] (DEFAULT) [address] [place] [address] 59042Xnwcjvf and Physicalon 28-89-2558Ptikvcl and Physical [id number]#1.00OTGTIFFNoalPromedica Defiance Regional Hospital HospitalMAGR Intraoperative Recordon 71-66-9073SOGS Intraoperative RecordMAGR Intra-Op Record Summary Primary Physician: Bairon Win DO Finalized Date/Time: 05/15/20 17:18:47 Pt. Name: GRETCHEN DELATORRE/Sex: 1950 MALE Med Rec #: [id number] Physician: Bairon Win DO Financial #: [id number] Pt. Type: O Room/Bed: [facility]/1 Admit/Disch: 05/15/20 06:07:00 - Institution: Case Times [...] Role Performed Surgeon - Primary Anesthesiologist of Dock Clerk Record Time In 05/15/20 09:01:00 05/15/20 09:01:00 05/15/20 09:01:00 Time Out 05/15/20 11:20:00 05/15/20 11:20:00 05/15/20 11:20:00 Procedure Arthroplasty Total Arthroplasty Total Arthroplasty Total Hip(Right) Hip(Right) Hip(Right) Last Modified By: Ethel Gibson RN, Stephanie RN Sauer, Stephanie RN 05/15/20 14:15:50 05/15/20 14:15:50 05/15/20 14:15:50 Entry 4 Entry 5 Entry 6 Case Attendee Adina Guzman CST, Adkins, Brittany E CST Regina HISTOLOGY SUPERVISOR Role Performed Scrub Personnel Radial Saw Operator Radial Saw Operator Time In 05/15/20 09:01:00 05/15/20 09:01:00 [...] CUFF REG FORCED WARM AIR Serial ?# [id number] Equipment Setting FACTORY DEFAULT 43 DEGREES [...] By: Pedro Edgar DO Size 54MM 58MM Corporate Accounting Manager DePuy DEPUY DEPUY Catalog # Lot Number [id number] Expiration Date 03/02/30 04/02/30 Serial Number REF [id number] REF 1217-32-054 REF [id number] Device Identifier Human Readable PAUL Machine Readable PAUL MR Class Implant Usage Data Site Hip R Hip R Hip R Quantity 1 1 1 Reason for Explant Reason Not Retained Explant Disposition Horse Rancher Sterility External Indicator Result Internal Indicator Results [...] 56OD 6.5MM X 25MM KA SIZE 11 Corporate Accounting Manager DEPUY DEPUY DEPUY Catalog # Lot Number [id number] Expiration Date 12/31/24 10/02/29 07/03/24 Serial Number REF [id number] REF [id number] REF [id number] Device Identifier Human Readable PAUL Machine Readable PAUL MR Class Implant Usage Data Site Hip R Hip R Hip R Quantity 1 2 1 Reason for Explant Reason Not Retained Explant Disposition Horse Rancher Sterility External Indicator Result Internal Indicator Results Outcome Met (O.30) Yes Yes Yes Last Modified By: Ethel Gibson RN, Stephanie RN Sauer, Stephanie RN 05/15/20 15:23:55 05/15/20 15:23:55 05/15/20 15:23:55 Entry 7 Procedure Arthroplasty Total Hip(Right) Implant Action Implant Description DEPUY M SPEC METAL FEMORAL HEAD Implant Information Implant/Explant 05/15/20 10:25:00 Date/Time Implanted/Explanted Bairon Win By: Pedro Size 036MM 10/16 TAPER Corporate Accounting Manager DEPUY Catalog # Lot Number [id number] Expiration Date 07/03/24 Serial Number REF 1365-51-000 Device Identifier Human Readable PAUL Machine Readable PAUL MR Class Implant Usage Data Site Hip R Quantity 1 Reason for Explant Reason Not Retained Explant Disposition Horse Rancher Sterility External Indicator Result Internal Indicator Results [...] Signatures Signed By: Ethel Gibson RN 05/15/20 17:18[facility] PACU Recordon 84-92-8852GXNM PACU RecordMAGR PACU Record Summary Primary Physician: Bairon Win DO Finalized Date/Time: 05/15/20 12:19:32 Pt. Name: NANDINIGRETCHEN./Sex: 1950 MALE Med Rec #: [id number] Physician: Bairon Win DO Financial #: [id number] Pt. Type: D Room/Bed: 221/1 Admit/Disch: 05/15/20 06:07:00 - Institution: PACU Case Times MAGR Entry 1 In PACU I 05/15/20 11:15:00 Discharge from PACU 05/15/20 12:05:00 I Last Modified By: Francesca Pastrana RN 05/15/20 12:19:29 Finalized By: Francesca Pastrana RN Document Signatures Signed By: Francesca Pastrana RN 05/15/20 12:19[facility] Preoperative Recordon 44-00-9673DQLO Preoperative RecordMAGR Pre-Op Record Summary Primary Physician: Bairon Win DO Finalized Date/Time: 05/15/20 13:36:44 Pt. Name: GRETCHEN DELATORRE /Sex: 1950 MALE Med Rec #: [id number] Physician: Bairon Win DO Financial #: [id number] Pt. Type: O Room/Bed: 221/1 Admit/Disch: 05/15/20 [...] Signatures Signed By: Francesca Pastrana RN 05/15/20 13:36[facility] HospitalNutrition Noteon 05-15-2020 Nutrition NotePt admitted for [...] supplements, vitamins/ minerals already in place. To follow.[facility] HospitalOperative Report - Surgeon/Physicianon 05-15-2020 Operative Report [...] impacted a 56 mm gription cup ( [employer]) this was secured with 2 6.5 mm [...] both with saline and then also diluted [place] dine mixture. The fascial planes were injected [...] [Verified on: 05/15/2020 12:17 EDT] [facility]on [facility] Pharmacy NoteI have personally reviewed [...] Reyna [Verified on: 05/15/2020 15:26 EDT] Radha ReynaramonSelect Medical OhioHealth Rehabilitation HospitalXR Hip Complete Righton 53-35-8353FQ Hip Complete RightEXAM: Right hip HISTORY: Postoperative [...] Signature): Haroon Javier 05/15/20 11:59 a Technologist: ISRRAELPremier HealthABORhon 44-24-9148CVM and [facility] Nom (Bld)Hx Check: Not Found Anti-A: 4+ Anti-B: 0 Anti-D: 4+ DCon: NT A1: 0 B: 4+ ABORh Interp: A POSPromedica Defiance Regional Hospital HospitalComment on above:Performed By: #### [id number] #### [facility] (DEFAULT) [address] [place] [address] 59793XXOBq Retypeon 62-41-8023PHY and [facility] Nom (Bld)Ordered by Discern. Anti-A: 4+ Anti-B: 0 Anti-D: 4+ DCon: NT A1: 0 B: 4+ ABORh Retype: A POSPromedica Defiance [facility] Hospital HospitalComment on above:Performed By: #### [id number] #### [facility] (DEFAULT) [address] [place] [address] 57264WVBG Gelon 09-61-1273OURH GelNegativeOhioHealth HospitalComment on above:Performed By: #### [id number] #### [facility] (DEFAULT) [address] [place] [address] 26511Promw Bank IDon [id number] Bank IDBBID: [id number] [facility] HospitalComment on above:Performed By: #### [id number] #### [facility] (DEFAULT) [address] [place] [address] 29615G&Hon 27-48-8165Yvbachqvqs (Bld) [Volume fraction]38.3 % Cevshx63.8-51.9[facility] HospitalComment on above:Performed By: #### [id number] #### [facility] (DEFAULT) [address] [place] [address] 10067Dubcwfatgv (Bld) [Mass/Vol]13.3 g/jGSbviwq71.8-17.7 [facility] HospitalComment on above:Performed By: #### [id number] #### [facility] (DEFAULT) [address] [place] [address] 32608ICPX-DyJ-4 (COVID-19) PCRon 17-93-8994GUDJZ-19 PCRNot DetectedNormalNot DetectedPromedica Defiance Regional Hospital HospitalComment on above:Performed By: #### [id number] #### [facility] (DEFAULT) [address] [place] [address] 75883Zujhcens Note - Nurseon 86-79-9863Auqamdgh Note - Nurse Spoke with pt regarding arrival time of 0600 and NPO after midnight. Pt instructed he will need to be tested for COVID on Friday when he comes in for type and screen. Verbalized understanding. [Electronically Signed on: 05/12/2020 09:38 EDT] Sara Alvarez RN [Verified on: 05/12/2020 09:38 EDT] Sara Alvarez RNrmalMagruder HospitalCoding Summaryon 64-98-6056Eharlc SummaryCODING DATE: 05/10/2020 FINAL [facility] STATUS: Home PAYOR: Medicare MC APC [...] By: Eugenie George Date Saved: 05/10/2020 01:27 [facility], BeachwoodBilling Authorizationson 36-03-9269Lulybzi Authorizations [id number]#1.00[facility] Medication Managementon 89-71-1374Sngpdlfean Management [id number]#1.00[facility] Coding Summaryon 90-40-9284Acswkj SummaryCODING DATE: 05/08/2020 [facility] STATUS: Home PAYOR: Medicare MC ADMIT DX: [...] By: Eugenie George Date Saved: 05/08/2020 01:38 [facility] BeachwoodProgress Note - Nurseon 36-27-8031Vjopcfon Note - NursePAT review done per Dr. Willie villarreal Cardiac workup, no orders received. [Electronically Signed on: 05/02/2020 07:05 EDT] Warga, Francesca RN [Verified on: 05/02/2020 07:05 EDT] Francesca Pastrana RNSelect Medical OhioHealth Rehabilitation HospitalProgress Note - NurseDr. Burgos reviews PAT information and testing results. Request copy of the stress test and last ca rdiology office notes. Call made to [facility], spoke with Annemarie [facility]. Requested above information. Release of information faxed for records request. [Electronically Signed on: 05/01/2020 09:47 EDT] Maritza Teresa RN [Verified on: 05/01/2020 09:47 EDT] Maritza Teresa RNSelect Medical OhioHealth Rehabilitation HospitalC MRSA Screenon 04-28-2020C MRSA ScreenNegativeOhioHealth HospitalComment on above:Performed By: #### [id number] #### [facility] (DEFAULT) [address] [place] [address] 70481Dtwqyviq Orderson 82-72-7774Hmzbtdqz Orders [id number]#1.00OTGTIFFSelect Medical [facility]Health Rehabilitation Hospital.Auto Diff 1on 11-36-0263Qjcm [place] %9 %Normal1-12[facility] HospitalComment on above: Performed By: #### [id number], [id number], [id number] #### [facility] (DEFAULT) [address] [place] [address] 34362Jtlt Abs#0.0 a81Kgjolu2.0-0.2[facility] HospitalComment on above:Performed By: #### [id number], [id number], [id number] #### [facility] (DEFAULT) [address] [place] [address] 62852Gzlfvkkxk/100 WBC (Bld)0.4 %Normal0.2-2.0[facility] Hospital Comment on above:Performed By: #### [id number], [id number], [id number] #### [facility] (DEFAULT) [address] [place] [address] 39277Fnp Abs#0.1 l26Bdzhcg1.0-0.4[facility] HospitalComment on above:Performed By: #### [id number], [id number], [id number] #### [facility] (DEFAULT) [address] [place] [address] 61617Zyklujpumqk/100 WBC (Bld)1.7 %Normal0.9-4.0[facility] HospitalComment on above:Performed By: #### [id number], [id number], [id number] #### [facility] (DEFAULT) [address] [place] [address] 87533Oiyzkqzdjpq (Bld) [#/Vol]1.6 r47Ztbxeu6.3-2.9[facility] HospitalComment on above:Performed By: #### [id number], [id number], [id number] #### [facility] (DEFAULT) [address] [place] [address] 48241Ocqvahytgvt/100 WBC (Bld)20 %Sxovgc26-07Nuz[facility]izds [facility] Comment on above:Performed By: #### [id number], 49132007, [id number] #### [facility] (DEFAULT) [address] [place] [address] 49330Bjdb Abs#0.7 k98Upouyb7.0-0.8[facility] HospitalComment on above:Performed By: #### [id number], 12084303, [id number] #### [facility] (DEFAULT) [address] [place] [address] 12803Xqqf Abs#5.2 b04Muwnra1.5-9.2[facility] HospitalComment on above:Performed By: #### [id number], 66731719, [id number] #### [facility] (DEFAULT) [address] [place] [address] 31221Mjtgqhdhrzx/100 WBC (Bld)69 %Vuvcwp74-18Zysznbhl Hospital Comment on above:Performed By: #### [id number], 45590648, [id number] #### [facility] (DEFAULT) [address] [place] [address] 60780GXV Standardon 89-36-3138nWJU Non AA>60[facility] Comment on above:Performed By: #### [id number], 54078018, [id number] #### [facility] (DEFAULT) [address] [place] [address] 56301oLZZ AA>60[facility] HospitalComment on above:Result Comment: Chronic Kidney disease could be indicated at eGFRs of less than 60 ml/min/1.73m2. Kidney Failure is indicated at less than 15 ml/min/1.73m2 Performed By: #### [id number], [id number], [id number] #### [facility] (DEFAULT) [address] [place] [address] 81409Jtyyg gap [Moles/Vol]12.0 mmol/LNormal5.0-19.0[facility] HospitalComment on above:Performed By: #### [id number], 30860734, [id number] #### [facility] (DEFAULT) [address] [place] [address] 43651Vsxlbxv [Mass/Vol]9.7 mg/dLNormal8.9-10.3M[facility]ne [facility] Comment on above:Performed By: #### [id number], 67425738, [id number] #### [facility] (DEFAULT) [address] [place] [address] 32906Cgxsqehj [Moles/Vol]106 mmol/NSddbjm537-580Zuconavu HospitalComment on above:Performed By: #### [id number], 12839290, [id number] #### [facility] (DEFAULT) [address] [place] [address] 55110NE2 [Moles/Vol]23 mmol/UGprban05-39Klcysebh Hospital Comment on above:Performed By: #### 6556614, 38340018, [id number] #### [facility] (DEFAULT) [address] [place] [address] 14751Szlqmodalc [Mass/Vol]0.72 mg/dLLow0.90-1.30[facility] HospitalComment on above:Performed By: #### 3687947, 58078344, [id number] #### [facility] (DEFAULT) [address] [place] [address] 28728Gjlpsfm [Mass/Vol]85.0 mg/nHCpwvyc73.0-118.0[facility] HospitalComment on above:Performed By: #### [id number], 03834740, [id number] #### [facility] (DEFAULT) [address] [place] [address] 86117Coizqxidkr [Osmolality]274 mOsm/LMwood [facility] hospital HospitalComment on above:Performed By: #### [id number], 97647831, [id number] #### [facility] (DEFAULT) [address] [place] [address] 73332Ytmgwgujl [Moles/Vol]4.4 mmol/LNormal3.6-5.1[facility] HospitalComment on above:Performed By: #### [id number], 53332320, [id number] #### [facility] (DEFAULT) [address] [place] [address] 51038Nqcxvi [Moles/Vol]137.0 mmol/YDlesdm408.0-144.0[facility] HospitalComment on above:Performed By: #### 6117948, 82049662, [id number] #### [facility] (DEFAULT) [address] [place] [address] 20232Ynnl nitrogen [Mass/Vol]16 mg/dLNormal8-26[facility] HospitalComment on above:Performed By: #### [id number], 28747487, [id number] #### [facility] (DEFAULT) [address] [place] [address] 12516Icld nitrogen/Creatinine [Mass ratio]22.0 mg/mgHigh 4.6-16.2[facility] HospitalComment on above:Performed By: #### 3966065, 63730761, [id number] #### [facility] (DEFAULT) [address] [place] [address] 66246LRZ w/ Auto Diffon 25-78-0429Wlzvbdjvryo distribution width (RBC) [Ratio]12.2 %Pkpguj69.5-15.0[facility] HospitalComment on above: Performed By: #### 3908092, 58186152, [id number] #### [facility] (DEFAULT) [address] [place] [address] 73620Mscifslryq (Bld) [Volume fraction]38.9 %Oauwmt39.8-51.9 [facility] HospitalComment on above:Performed By: #### [id number], 33375300, [id number] #### [facility] (DEFAULT) [address] [place], [place] [address]Hemoglobin (Bld) [Mass/Vol]13.5 g/cLKgxbgh52.8-17.7 [facility] HospitalComment on above:Performed By: #### 5040379, 69470097, [id number] #### [facility] (DEFAULT) [address] [place] [address] 55836Jix Diff?AutoNormalZanesville City HospitalComment on above: Performed By: #### 3837987, 45482137, [id number] #### [facility] (DEFAULT) [address] [place] [address] 07883NHQ (RBC) [Entitic mass]32 eoMoyfip67-31Omzekyjo Hospital Comment on above:Performed By: #### [id number], 14129330, [id number] #### [facility] (DEFAULT) [address] [place] [address] 03349URXM (RBC) [Mass/Vol]35 g/mQZtrmxm37-95Rhbqbmqp Hospital Comment on above:Performed By: #### 2651155, 73855209, [id number] #### [facility] (DEFAULT) [address] [place] [address] 47368SHY (RBC) [Entitic vol]91 pWOhmzaq76-626Wzxstmkx Hospital Comment on above:Performed By: #### 7907129, 58712623, [id number] #### [facility] (DEFAULT) [address] [place] [address] 23028Zxpcwjcx mean volume (Bld) [Entitic vol]9.3 fLNormal 6.3-10.2MWayne HospitalComment on above:Performed By: #### 6610724, 24927820, [id number] #### [facility] (DEFAULT) [address] [place] [address] 18618Iszzfkgjl (Bld) [#/Vol]220 i22Pusjic490-070Xjvirpfb HospitalComment on above:Performed By: #### 1351998, 35515914, [id number] #### [facility] (DEFAULT) [address] [place] [address] 48465JCF (Bld) [#/Vol]4.26 x61Nglkof0.70-5.30[facility] Comment on above:Performed By: #### 1290367, 28952060, [id number] #### [facility] (DEFAULT) [address] [place] [address] 86842XKH (Bld) [#/Vol]7.6 l17Hxgnix3.5-10.5[facility] Comment on above:Performed By: #### 5991088, 14064479, [id number] #### [facility] (DEFAULT) [address] [place] [address] 96282Ldlauqqz Orderson 05-17-4932Jnlzgqlx Orders [id number]#1.00OTGTIFFNoSt. Mary's Medical CenterUA w Culture if Ind Standardon 50-35-0168Dggccgbayi UASelect [facility] Comment on above:Performed By: #### [id number] #### [facility] (DEFAULT) [address] [place] [address] 59245Gxziz (U)YellowNormalMagruder HospitalComment on above: Performed By: #### [id number] #### [facility] (DEFAULT) [address] [place] [address] 07592Cajdkla?NoNormalMagruder HospitalComment on above: Performed By: #### [id number] #### [facility] (DEFAULT) [address] [place] [address] 54876Ssvbfjf (U) [Mass/Vol]NegativeNormalMagruder Hospital Comment on above:Performed By: #### [id number] #### [facility] (DEFAULT) [address] [place] [address] 75485Tooijiw Ql (U)NegativeNormalMagruder HospitalComment on above:Performed By: #### [id number] #### [facility] (DEFAULT) [address] [place] [address] 06008Owxcf?Not IndicatedNormalMagruder HospitalComment on above:Performed By: #### [id number] #### [facility] (DEFAULT) [address] [place] [address] 29697YN BilirubinNegativeNormalMagruder HospitalComment on above:Performed By: #### [id number] #### [facility] (DEFAULT) [address] [place] [address] 69311IA BloodNegativeNormalNEGATIVEMagruder HospitalComment on above:Performed By: #### [id number] #### [facility] (DEFAULT) [address] [place] [address] 24188SW ClarityCLEARNormalCLEARMagruder HospitalComment on above:Performed By: #### [id number] #### [facility] (DEFAULT) [address] [place] [address] 37199LN Leuk EstNegativeNormalNEGATIVEMagruder HospitalComment on above:Performed By: #### [id number] #### [facility] (DEFAULT) [address] [place] [address] 09918JM NitriteNegativeNormalNEGATIVEMagruder HospitalComment on above:Performed By: #### [id number] #### [facility] (DEFAULT) [address] [place], [place] [address]UA pH6.6Mvcwwz8-1Onmojrbw HospitalComment on above: Performed By: #### [id number] #### [facility] (DEFAULT) [address] [place] [address] 65746BG ProteinNegativeNormalNEGATIVEPromedica Defiance Regional Hospital HospitalComment on above:Performed By: #### [id number] #### [facility] (DEFAULT) [address] [place], [place] [address]UA Spec Grav<=1.006Rbytkf5.001-1.035[facility] Comment on above:Performed By: #### [id number] #### [facility] (DEFAULT) [address] [place], [place] [address]UA Urobilinogen0.2 mg/dLNormal0.2-1.0[facility] Comment on above:Performed By: #### [id number] #### [facility] (DEFAULT) [address] [place], [place] [address]Urine SourceClean CatchNormalZanesville City HospitalComment on above:Performed By: #### [id number] #### [facility] (DEFAULT) [address] [place] [address] Vital Signs Date TimeVital SignValuePerforming QqiixayerTkilduyl56-67-0827 13:41-0400Blood Pressure LocationMichael NILL [facility] Uwysqeyc24-81-8308 13:41-0400Diastolic blood ymceyqpe84 mm[Hg]Haroon NILL [facility] Vqwspdnw85-15-2756 13:41-0400Heart rate 76 /minMichael NILL [facility] Dkrnokwv38-62-9508 13:41-0400 Respiratory rate16 /minMichael NILL [facility] Hrqtichh65-33-7113 13:41-0400Systolic blood shdjaxbp586 mm[Hg]Haroon NILL General Surgery Aime Encounters Encounter DateEncounter TypeCare ProviderFacilityStart: 10-18-2024 End: 23-45-4722bhkikspqmvPMLKTQ [facility] Start: 03-02-2024 End: 16-75-8331misohlbzymAbdkkim R NILLFacility:[facility]ueStart: 03-02-2024 End: 72-16-4605Hjwwbum encounter procedureMichael R NILL 569-9563Zwzrak-Ajdti General Surgery Aime Start: 03-02-2024 End: 72-12-3404rrebdwqssuEruztaa R NillFacility:[facility] Hospitaltart: 02-18-2024 End: 72-38-0424joeegyphthAtxkuoa R NILLFacility:[facility]ueStart: 02-18-2024 End: 58-35-7072Xjckmap encounter procedureMichael R NILL General Surgery Nill/[facility] [place] Start: 03-19-2023 End: 74-74-2551tricmadzomAF DAKSHA OREILLY .Facility:Q2Uopwf: 03-18-2023 End: 27-02-6770dzbyxywypxSL DAKSHA HOY .Facility:X4Kipsn: 03-18-2023 End: 19-15-4853sfkaxjunvaCNCDFDV TUSHANNAERFacility:S2Hfide: 08-16-2022 End: 83-64-6547vvnihxyrrqPD BRYCE MOUKARBELFacility:E7Wswul: 06-29-2022 ambulatoryDR BRYCE MOUKARBELFacility:H1 Procedures DateProcedureProcedure DetailPerforming ClinicianStart: 05-29-9012SOV screening AMBERMARTA Deleonment on above:Performed By: #### CMP, CK, LIPID #### [facility] [address] [place] [address] Dr. Tyrell CasillasStart: 95-09-4475Ttjdkh of joint of right hipMichael NILL Start: 26-56-5859Vmlnqaji artery bypass grafts x 4 Haroon NILL Start: 68-78-6570Xdbnvh of joint of left hipMichael NILL Arthroscopy of kneeMichael NILL ColonoscopyMichael NILL Insertion of inferior vena caval filterMichael NILL LaminectomyMichael NILL Lysis of adhesionsMichael NILL Repair of recurrent incisional herniaMichael NILL Repair of ventral herniaMichael NILL Comment on above:x 3 Immunizations Immunization DateImmunizationNotesCare BhmmscnpEuutreor63-40-5456moydjianh virus vaccine, unspecified formulationMichael NILL General Surgery Buegpaqe42-54-4057SGHJ-GvK-5 (COVID-19) mRNA BNT-162b2 vaxMichael NILL General Surgery Ooyekaal03-44-8379GMOY-FyC-3 (COVID-19) mRNA BNT-162b2 vaxMichael NILL General Surgery Aime Payers DatePayer CategoryPayerPolicy [id number] 2.16.840.1.562874.3.57[id number] 2.16.840.1.563763.3.57[id number] 2.16.840.1.455657.3.579.2.41589-32-4812Wvwsokw20452007 2..0.1.980799.3.579.[id number] 2..0.1.101897.[id number] 2.0.1.608732.3.579.2.531 Social History DateTypeDetailFacilityStart: 76-30-8563Krrgxnd smoking statusNever smoked tobacco (finding)General Surgery ManchesterTobacco smoking statusNeverGeneral Surgery BellueSex Assigned [facility] Functional Status IykgLrytobwvdnUtasztBwnqxvzh20-77-2951Xcswiazdzu StatusN/AGeneral Surgery [place] Progress note 10-18-2024 Note Date & XqtgYwycRglusfle03-28-4171 NoteUT Cardiology - [facility] Subjective Gretchen Delatorre is a [...] Visual field defect Coronary artery disease involving beaver coronary artery of beaver heart without angina pectoris History of coronary [...] PMH- CAD s/p CABG, HTN, HPL, Cardiomyopathy, NV in 1996 PSH- CABG x4 2005, Rt [...] by oral route., Di (more content not included)...[facility] Clinical Note 02-18-2024 Note Date & LtbdYuofDzotvqjo25-48-9249 NoteChief Complaint consultation for skin lesion HPI Staff 73 year old male presents on consultation from Dr. Oreilly for right chest wall mass. Reports mass has been present for several years. Reports gradual increase in size. Denies soreness or tenderness. Denies bleeding or drainage. History of Present Illness 73 yo male with h/o CAD, NV, htn, hyperlipidemia, CVA, degenerative disc disease, lumbar, [...] Recorded SARS-CoV-2 (COVID-19) mRNA BNT-162b2 vax 02/06/2021 RecordedKettering HealthComment on above:Result Comment: Electronically Signed By: AUDI JAIME, Haroon Ellison\.br\Date and Time Signed: 02/18/24 15:21 EDT Evaluation + Plan note Note Date & TypeNoteFacilityEvaluation + Plan note Future Appointments Appointment Date:03/02/2024 03:00:00 PM Scheduled Provider:Haroon DON MD Location:[facility] Appointment Type: Procedure 30 General Surgery [facility] Hospital course Narrative Note Date & TypeNoteFacilityHospital course Narrative No data available for this section [facility] [place] [facility] Discharge instructions Note Date & TypeNoteFacilityHospital Discharge instructions No data available for this section General Surgery [place] Progress note Note Date & TypeNoteFacilityProgress note [...] Advanced Directives Records Found Hospital Course Note [facility] Clinical Discharge Summary PERSON INFORMATION Name GRETCHEN DELATORRE Age 69 Years 1950 Sex MALE Language Thai PCP DAKSHA OREILLY Marital Status Med Service Observation Acct# Arrival 05/15/2020 06:07:00 Visit Reason RIGHT TOTAL HIP Acuity LOS Address: [address] [place] [address] [address] [facility] [address] Comment: PROVIDER INFORMATION VITALS INFORMATION Vital Sign [...] section and content) DATE CREATED AUTHOR 07/26/2020 [facility] DATE CREATED AUTHOR AUTHOR'S ORGANIZ ATION 03/20/2023 [facility] DATE CREATED AUTHOR AUTHOR'S ORGANIZ ATION 03/05/2024 [facility] DATE CREATED AUTHOR AUTHOR'S ORGANIZ ATION 03/06/2024 [facility] DATE CREATED AUTHOR AUTHOR'S ORGANIZ ATION 04/09/2025 [facility] Patient Care team informatio n (unrecognized section and content) Personnel Name: Daksha Oreilly MD Address: Address: [address] [place] [address] Personnel Name: Daksha Oreilly MD Address: Address: [address] [place] [address] FOR RECORDS PERTAINING TO PATIENTS WHO ARE [...] BE BASED ON THE PRIMARY CLINICAL RECORDS. [employer] provides no warranty or guarantee of the accuracy or completeness of information in this document.
[2025-09-06 15:53] LABS: Hematocrit 27.2 % (42.0-54.0); Hemoglobin 8.5 g/dL (14.0-18.0); Immature Granulocytes Abs Auto 0.01 10^3/uL (0.00-0.03); Immature Granulocytes Pct Auto 0.2 % (0.0-0.5); Lymphocytes Absolute Auto 1.0 10^3/uL (1.2-3.8); Mean Corpuscular HGB Conc 31.3 g/dL (29.9-35.2); Mean Corpuscular Hemoglobin 36.3 pg (25.9-34.0); Mean Corpuscular Volume 116.2 fL (80.0-94.0); Platelet Count 115 10^3/uL (150-450); White Blood Count 5.2 10^3/uL (4.0-11.0)
[2025-09-06 16:23] LABS: NT Pro B Type Natriuretic Pept 2661.0 pg/mL (<=900.0)
[2025-09-06 16:26] LABS: Red Blood Count 2.34 10^6/uL (4.70-6.10)
== END 2025-09-06 15:25 | disposition home or self-care (01) ==
PROVIDERS: PCP Family Medicine; Visit Provider Family Medicine
DX: D64.9 Anemia, unspecified (principal); R06.02 Shortness of breath; I50.30 Unspecified diastolic (congestive) heart failure; I11.0 Hypertensive heart disease with heart failure
CPT/HCPCS: 36415; 83880; 84484; 85025

== ENCOUNTER 2025-09-07 11:00 | Outpatient (OUT) | payer MEDICARE, SELFPAY ==
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
--- OUTSIDE RECORDS SUMMARY | 2025-09-04 08:33 | XMS_ITS ---
Author Organization The [facility] in [place] Address [address] [place] [address] Care Team Providers Care Floor Waxer Name Role Phone Yamil Oreilly Primary Care Provider [phone] Results Component Value Reference Range Notes BNP Reviewed date:09/06/2025 07:22:28 PM Interpretation: Performing Lab: Notes/Report: [facility] , NT Pro B Type Natriuretic Pept 2661.0 <=900.0 pg /mL RESULTS CALLED TO Performing Lab: see note ML - [facility] LB REASON FOR VISIT review labs Medications Medication SIG (Take, Route, Frequency, Duration) Notes Start Date End Date Status Lasix 40 MG 1 tablet Orally twice a day; Dur ation: 30 days 5ActivePotassium Chloride ER 20 MEQ1 capsule with food Orally Twice a day; Duration: 30 days5Active Problems Problem Type SNOMED Code ICD Code Onset Dates Problem Status W/U Status Risk Notes Problem Anemia (601992159) Anemia (D64.9) Activeconfirmed Procedures Procedure Date Ordered Date Performed Result Body Sit e Echocardiogram 09/04/2025 N/A Encounters Encounter Location Date Provider Diagnosis [facility] [address] [place] [address] 09/04/2025 Yamil Oreilly Anemia D64.9 ; SOB (shortness of breath) R06.02 and Edema R60.9 Assessments Encounter Date Diagnosis (ICD Code) Assessment Notes Treatment Notes Treatment Clinical Notes Section Notes 09/04/2025 Anemia (ICD-10 - D64.9) 09/04/2025SOB (shortness of breath) (ICD-10 - R06.02)09/04/2025Edema (ICD-10 - R60.9) Plan Of Treatment Medication Medication Name Sig Start Date Stop Date Notes Lasix 40 MG 1 tablet Orally twice a day; Duration: 30 days 09/01/2025 Potassium Chloride ER 20 MEQ1 capsule with food Orally Twice a day; Duration: 30 days09/06/2025Pending Test Test Name Order Date Echocardiogram 09/04/2025 CBC 09/04/2025 High Sensitivity Troponin 09/04/2025 Progress Notes * Arsh PARMAR ADOB:1950 (74 yo M)Acc No.[id number]:09/04/2025 Patient:?Arsh PARMAR A :1950???Age:74 Y???Sex:MalePhone:[phone] Address:[address] [place] [address] [address], [place] [address] * Refills Refill Lasix Tablet, 40 MG, Orally, 60 Tablet, 1 tablet, twice a day, 30 days, Refills=11 Start Potassium Chloride ER Tablet Extended Release, 20 MEQ, Orally, 60 Capsule, 1 capsule with food, Twice a day, 30 days, Refills=11 Subjective: * Chief Complaints: * R eview labs * Medical History: * Surgical History: * Hospitalization/Major Diagno stic Procedure: * Medications: Objective: * Vitals: * Physical Examination: ??? Assessment: * Assessment: 1.?Anemia - D64.9 (Primary)???2.?SOB (shortness of breath) - R06.02?&# 160;?3.?Edema - R60.9??? Plan: * Treatment: ?LAB: CBC2.?SOB (shortness of breath)?LAB: High Sensitivity Troponin ?LAB: BNP ?Procedure: Echocardiogram3.?Edema? Refill Lasix Tablet, 40 MG, 1 tablet, Orally, twice a day, 30 days, 60 Tablet, Refills 11.? 4.?Others? Start Potassium Chloride ER Tablet Extended Release, 20 MEQ, 1 capsule with food, Orally, Twice a day, 30 days, 60 Capsule, Refills 11.?? * Procedure Codes: * true * Date:?Generated for Printing/Faxing/eTransmitting on:?09/07/2025 11:03 AM EST
--- OUTSIDE RECORDS SUMMARY | 2025-09-06 11:22 | XMS_ITS ---
Author Organization The [facility] in [place] Address [address] [place] [address] Care Team Providers Care Roguer Name Role Phone Yamil Oreilly Primary Care Provider REASON FOR VISIT Critical Labs Encounters Encounter Location Date Provider Diagnosis [facility] [address] [place] [address] 09/06/2025 Yamil Oreilly Elevated troponin R7 7.8 [...] Troponin 09/06/2025 CMP - Comprehensive Metabolic Panel 02/2025 CBC W/AUTO DIFF 09/06/2025 BNP 09/06/2025 Progress Notes * Arsh PARMAR ADOB:1950 (74 yo M)Acc No.[id number]:09/06/2025 Patient:?Arsh PARMAR :1950???Age:74 Y???Sex:MalePhone:[phone] Address:[address], [place] [address] Subjective: * Chief Complaints: * C ritical [...] * true * Date:?Generated for Printing/Faxing/eTransmitting on:?09/07/2025 11:04 AM EST
--- OUTSIDE RECORDS SUMMARY | 2025-09-07 11:03 | XMS_ITS | Clinical Summary ---
Author Organization Contrib tem Address [id number] [address] [place] [address] Care Team Providers Care Test Engineer Nuclear Equipment Name Role Phone Vik Oreilly MD Primary Care Provider [phone] Allergies No known active allergies Medications MedicationSigDispense QuantityRefillsLast FilledStart DateEnd DateStatus oxyCODONE-acetaminophen (PERCOCET) 5-325 mg per tablet Take 1 tablet by mouth every 4 (four) hours as needed for pain.Active magnesium 30 mg tablet Take 30 mg by mouth 2 (two) times a day.Active vcianruk-xrej-BC-calcium &mins (THERAGRAN-M) 9 mg iron-400 mcg tablet [...] times a week05/25/2020How often do you attend restorationism or orthodox services?Never05/25/2020Do you belong to any clubs or organizations such as restorationism groups, unions, fraternal or athletic groups, or [...] and heating?Not hard at all 05/25/2020PHQ-2AnswerDate RecordedTotal Jbavx659Finriverton hospital Nelson of Occupational Health - Occupational Stress QuestionnaireAnswerDate [...] from medical appointments or from getting medications?Patient kbxsejhx75/23/2020In the past 12 months, has lack of transportation kept you from meetings, work, or from getting things needed for daily living?Patient aeauqeli16/23/2020ChildcareAnswerDate RecordedDo problems getting child development specialist make it difficult for you to work or study?No05/25/2020 EmploymentAnswerDate RecordedDo you need help finding a local career center and/or a training program?No05/25/2020Purpose - LifeAnswerDate RecordedPurpose and direction in ykltOecsqvs95/11/2021ex and Gender InformationValueDate RecordedSex Assigned at BirthNot on fileLegal SbwRlyj5606/08/2015 11:26 AM EDT Gender IdentityNot on fileSexual OrientationNot on file Last Filed Vital Signs Vital SignReadingTime TakenCommentsBlood Rrcnowsn430/7409 1:13 PM EDT Ciaqw6776 1:13 PM ECZMezpkfjaqil55.9 ??C (98.4 ??F)07/06/2020 1:13 PM EDTRespiratory Xxdv706507/06/2020 1:13 PM EDTOxygen Xjncpbksuv91%06/15/2020 1:00 PM EDTInhaled Oxygen Concentration--Nakbjl58.7 kg (193 lb 6 oz)07/06/2020 1:13 PM DSM497 lbs 6 nrZxukdr580.2 cm (5' 7.01 )06/14/2020 1:12 PM EDTBody Mass Index 30.28006/14/2020 1:12 PM EDT Plan of Treatment Health MaintenanceDue DateLast DoneCommentsDepression Uihgjvluj72/02/1965Tobacco Ltfktebxs51/02/1965Adult BMI Tmmfrstll63/02/1971DTaP,Tdap and Td Vaccines (1 - Tdap)1971Zoster (Shingles) Vaccine (1 of 2)2002Fall Risk Screening 2017Influenza Zocyroy1407/04/2025RSV ( or age 60+ yrs) (1 - [...]
--- OUTSIDE RECORDS SUMMARY | 2025-09-07 11:04 | XMS_ITS | Clinical Summary ---
Author Organization [facility] Address [address] [place] [address] Care Team Providers Care Tire Fabric Inspector Name Role Phone Vik Oreilly MD Primary Care Provider [phone] Allergies Active AllergyReactionsCriticalityNoted DateCommentsStatinsUnknownMedium 05/16/2023 Medications MedicationSigDispense [...] ComplexActive beta carotene (vitamin A) 7.5 MG (26164 UT) capsule Vitamin AActive rosuvastatin (Crestor) 10 [...] aortic aneurysm (AAA) without rupture 05/15/2023oronary artery mvcosda6205/15/2023History of total hip replacement 05/15/2023Other sequelae of cerebral jljiknrrww08/13/2023rimary osteoarthritis of right hip05/15/2023 Immunizations ImmunizationAdministration DatesNext DueInfluenza, trivalent, adjuvanted 09/02/2019 Social History Tobacco UseTypesPacks/DayYears UsedDateSmoking Tobacco: NeverSmokeless Tobacco: Never Tobacco Cessation:Counseling Given: Not Answered Alcohol UseStandard Drinks/WeekCommentsYes1 (1 standard drink = 0.6 oz pure alcohol)Sex and Gender InformationValueDate RecordedSex [facility]igned at [facility] 05/09/2023 11:31 AM EDTLegal EwiYnyj9001/15/2023 10:09 PM EDTGender IdentityMale 05/09/2023 11:31 AM EDTSexual OrientationNot on file Last Filed Vital Signs Vital SignReadingTime TakenCommentsBlood Pressure--Pulse--Temperature-- Respiratory Rate--Oxygen Saturation--Inhaled Oxygen Concentration--Wzishe44.2 kg (190 lb)05/16/2023 11:22 AM SEWSpftrl766.6 cm (5' 6 )05/16/2023 11:22 AM EDTBody Mass Index30.67005/16/2023 11:22 AM EDT Plan of Treatment Not on file Insurance Care Teams Team MemberRelationshipSpecialtyStart DateEnd Date Vik Oreilly MD PCP - GeneralFavaly Medicine05/14/23
--- OUTSIDE RECORDS SUMMARY | 2025-09-07 11:04 | XMS_ITS | Clinical Summary ---
Author Organization [facility] Address [address] [place] [address] Care Team Providers Care Fur Dressing Supervisor Name Role Phone Vik Oreilly MD Primary Care Provider [phone] Allergies No known active allergies Medications MedicationSigDispense [...] 10 mg tablet Indications:Coronary artery disease involving [place] coronary artery of [place] heart without angina pectoris,Hyperlipemia, mixedTAKE 1 TABLET BY MOUTH AT BEDTIME 90 tablet 3085Active ezetimibe (Zetia) 10 mg tablet Indications:Acute myocardial infarction of inferior wall (CMS/HCC)Take 1 tablet (10 mg) by mouth in the morning. 90 tablet 3095096Active Active Problems ProblemNoted DateDiagnosed DateBMI 33.0-33.9,adult10/18/2024Morbid obesity 10/18/2024Skin tag10/18/2024History of total hip bxelgghgade93 Primary osteoarthritis of right hip/10/2023Spinal stenosis of lumbar dlyknw4801/30/2023Sequelae of cerebral aibshunous72/30/2023rimary localized osteoarthritis of pelvic region and thigh01/30/2023resence of right artificial hip joint01/30/20235052Vmpsaefadcirnl12/30/2023Occult blood in kvqspg1301/30/2023 Difficulty nmbwzft9001/30/2023egeneration of intervertebral disc of lumbar region 01/30/2023erebrovascular accident (CVA)01/30/2023bnormal gait01/30/2023 Abdominal aortic aneurysm without hvootmg8801/30/20232992Hjvejkampwzn60/30/2023 Sedyyxqz75/30/2023oronary artery disease involving [place] coronary artery of [place] heart without angina pznqihfm56/17/2022History of coronary artery bypass graft08/19/2022Essential /17/2022ellulitis of hip, right 05/25/2020MGUS (monoclonal gammopathy of unknown significance)06/28/2013cute myocardial infarction of inferior wall05/19/20132988Iljjbpetjexqcy40/17/2013 Rjtnfelvkrblla56/17/2013Old myocardial eyzqqepkug93/17/2013Visual field defect 05/19/2013 Encounters DateTypeDepartmentCare MlwnJowzozkpdep70/08/2025[address] [address] Mary Ureña MA Acute myocardial infarction of inferior wall (CMS/HCC)06/24/2025[address] [address] Pako Palacios MD Coronary artery disease involving [place] coronary artery of [place] heart without angina pectoris; Hyperlipemia, mixedfrom Last 3 Months Immunizations ImmunizationAdministration DatesNext DueInfluenza, injectable, quadrivalent, preservative free07/31/2016Influenza, seasonal, uksfssanmb88/05/2014Influenza, seasonal, injectable, preservative free, 6 moonths & older08/02/2015Influenza, trivalent, bahefigvlm62/31/2019Pneumococcal Polysaccharide ZBW2408 Unspecified Sars-Cov-2 Tpqlfmvritz50/27/2021,02/06/2021Zoster, live10/31/2016 Social History Tobacco UseTypesPacks/DayYears UsedDateSmoking Tobacco: FormerCigarettes Smokeless Tobacco: Never Tobacco Cessation:Counseling Given: Not Answered Alcohol UseStandard Drinks/WeekCommentsYes0 (1 standard drink = 0.6 oz pure alcohol)MODERATEUT Safety & EnvironmentAnswerDate RecordedFear of Current or Ex-PartnerNot on file12/25/2023Emotionally AbusedNot on file12/25/2023hysically AbusedNot on file12/25/2023Sexually AbusedNot on file12/25/2023hysically or Sexually AbusedNot on file12/25/2023Sex and Gender InformationValueDate Recorded Sex Assigned at BirthNot on fileLegal PyfYnqf9005/01/2022 9:50 PM EDTGender IdentityNot on fileSexual OrientationNot on file Last Filed Vital Signs Vital SignReadingTime TakenCommentsBlood Uyzcqdfi440/6410/18/2024 9:22 AM EST Xvbhe649310/18/2024 9:22 AM ESTTemperature--Respiratory Rate--Oxygen Qmrgzlqjlq49% 10/18/2024 9:22 AM ESTInhaled Oxygen Concentration--Wrflka72.8 kg (198 lb) 10/18/2024 9:22 AM FNAYyvsvy888.2 cm (5' 7 )10/18/2024 9:22 AM ESTBody Mass Index31.01112/19/2023 9:22 AM EST Plan of Treatment Health MaintenanceDue DateLast DoneCommentsCT Ptkjdzleidlx55/02/1953Colonoscopy 3Colorectal Cancer Ourscmccs04/02/1953FIT-DNA1950FIT1950 FOBT1950Medicare Annual Wellness (AWV)1950 5544Uezlvptjwuvls67/02/1951 Depression Ykigjxbju92/02/1965Adult Fpbjpcy9512/05/1974Zoster Vaccines (1 of 2) Pneumococcal Vaccine: 50+ Years (2 of 2 - PCV)07/14/2007 07/14/2006Fall Risk Suejtchco32/02/2018COVID-19 Vaccine ( season) 5002/27/2021, 02/27/2021, 02/06/2021, Additional [...] DateEnd Date Vik Oreilly MD [address] [facility] [address] [address] PCP - [facility]07/10/22
--- NOTE | 2025-09-07 11:05 | CA_ITS ---
Patient Name: GRETCHEN DELATORRE MR#: [id number] : 1950 Exam Date: 09/07/2025 Ordering Doctor: DR DAKSHA DOLL . ECHOCARDIOGRAM REPORT PROCEDURE: CA ECHO DOPPLER COMPLETE INDICATIONS: Shortness of breath COMPARISON: None. DESCRIPTION: COMPLETE ECHOCARDIOGRAM Real-time transthoracic echocardiography with 2D, M-mode, spectral and color flow Doppler performed. QUALITY: Technical quality was good. LEFT VENTRICLE: Normal chamber size. Mild concentric left ventricular hypertrophy. LV EF: Global left ventricular systolic function is moderately reduced; visually estimated ejection fraction is 35 to 40%. Global hypokinesis with regional variability. DIASTOLIC: Grade III diastolic dysfunction. ATRIAL SEPTUM: Inadequately seen. LEFT ATRIUM: Severe dilatation. RIGHT ATRIUM: Moderate dilation. RIGHT VENTRICLE: Mild dilatation. Decreased right ventricular systolic function. TRICUSPID VALVE: Normal mobility and thickness. No stenosis with mild regurgitation. Moderate pulmonary hypertension. RVSP 50mmHg. MITRAL VALVE: Normal mobility and thickness. No evidence of mitral valve stenosis. There is no mitral annular calcification. Mild mitral regurgitation. AORTIC VALVE: Normal trileaflet appearance. Mildly calcified aortic valve. Normal leaflet mobility. No evidence of aortic valve stenosis. Trivial aortic regurgitation. AORTIC ROOT: Normal diameter and appearance. Measuring 3.4cm. PULMONIC VALVE: Normal thickness and mobility. No stenosis. Mild to moderate regurgitation. PERICARDIUM: Trivial pericardial effusion. CONCLUSION: 1. Global left ventricular systolic function is moderately reduced; visually estimated ejection fraction is 35 to 40% 2. The right ventricle is mildly dilated with reduced systolic function 3. Biatrial dilatation 4. Grade III, severe diastolic dysfunction 5. Mild left ventricular hypertrophy 6. Mild tricuspid regurgitation 7. Moderately elevated right ventricular systolic pressure; RVSP 50 mmHg 8. Mild mitral regurgitation 9. Mild to moderate pulmonic regurgitation 10. Trivial pericardial effusion Adult Echocardiography Procedure Report Left Ventricle LVEDD (3.7 - 5.6 cm): 5.41 cm LVESD (2.2 - 4.0 cm): 4.52 cm LVIVS thickness (0.6 - 1.2 cm): 1.19 cm LVPW thickness (0.5 - 1.0 cm): 1.29 cm e': 0.10 m/s E - e': 10.23 LVOT Max Gradient: 4.87 mm[Hg], 4.87 mm[Hg], 4.87 mm[Hg] LVOT Area (cm2): 1.10 m/s Peak Velocity (LVOT): 1.10 m/s, 1.10 m/s, 1.10 m/s Mean Velocity (LVOT): 0.77 m/s LVOT Diameter 1.95 cm Left Ventricular Ejection Fraction: 39.06 % Left Atrium LA Volume Index (2D A2C): 62.05 ml/m2 Left Atrium Systolic Dimension: 5.04 cm Mitral Valve MV E to A Ratio: 2.07 Mitral Valve A-Wave Peak Velocity: 0.51 m/s Mitral Valve E-Wave Peak Velocity: 1.05 m/s Right Ventricle RV Internal Diastolic Dimension: 4.06 cm Aorta AO Root Diam: 3.38 cm Ascending Ao Diam: 3.01 cm Aortic Valve AoV Area (Pe[place]): 2.05 cm2, 2.01 cm2, 2.09 cm2 AoV Area (VTI): 2.17 cm2, 2.10 cm2, 2.22 cm2 Peak Velocity(Antegrade Flow): 1.64 m/s, 1.58 m/s Peak Gradient(Antegrade Flow): 10.76 mm[Hg], 9.96 mm[Hg] Mean Velocity(Antegrade Flow): 1.15 m/s, 1.15 m/s Mean Gradient(Antegrade Flow): 6.14 mm[Hg], 5.88 mm[Hg] Velocity Time Integral: 34.83 cm, 31.48 cm Tricuspid Valve Peak Velocity (Regurgitant Flow): 2.67 m/s, 2.63 m/s, 2.97 m/s Pulmonic Valve Mean Gradient: 1.88 mm[Hg], 1.77 mm[Hg], 1.72 mm[Hg] Mean Velocity: 0.64 m/s, 0.62 m/s, 0.60 m/s Peak Velocity: 0.89 m/s Peak Gradient: 3.48 mm[Hg], 3.01 mm[Hg], 3.01 mm[Hg] Right Atrium Right Atrium Systolic Pressure: 88.56 ml, 88.56 ml Dictated by: Maisha Iglesias M.D. on 09/07/2025 at 14:44 Approved by: Maisha Iglesias M.D. on 09/07/2025 at 14:51
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
--- OUTSIDE RECORDS SUMMARY | 2025-09-07 11:16 | XMS_ITS | CCD ---
Author Organization [facility] CliniSypr Care Team Providers Care Stock Tracer Name Role Phone AMBER KIRBY Admitting Unavailable [...] Admitting Unavailable Daksha Oreilly Primary Care Physician [phone] Haroon Don Attending Unavailable NillHaroon Admitting Unavailable Haroon DON Attending Unavailable Daksha Oreilly Referring Unavailable Haroon DON Attending Unavailable MOUKARBELBRYCE Attending Unavailable Allergies Allergy ClassificationReported Allergen(s)Allergy TypeDate of OnsetReaction(s) Facility (1 source)black walnut pollen extractDrug AllergyThe [facility] ([facility] source)Hmg-Coa Reductase Inhibitors (Statins); Translations: [statins] Propensity to adverse reactions (disorder)[facility] Repository (1 source)No Known Medication Allergies; Translations: [No Known Medication Allergies]Propensity to adverse reactions (disorder)[facility] Repository Medications Current Medications MedicationDrug Class(es)DatesSig (Normalized)Sig (Original)aspirin 81 mg delayed release oral tablet (2 sources)Platelet Aggregation Inhibitor, Nonsteroidal Anti-inflammatory Drug Start: 29-22-8570taqx 1 tablet by mouth once dailyaspirin 81 mg Oral EC Tab 81 mg = 1 tab(s), Oral, Daily Start Date: 06/19/21 Status: Orderedatenolol 50 mg oral tablet (2 sources)beta-Adrenergic BlockerStart: 45-76-9660jcyk 1 tablet by mouth once dailyatenolol 50 mg Tab 50 mg = 1 tab(s), Oral, Daily Start Date: 06/19/21 Status: OrderedOsteo Bi-Flex (2 sources)Start: 38-85-7572Bwelg Bi-Flex Refill(s) 0 Start Date: 02/16/24 Status: Orderedezetimibe 10 mg oral tablet (2 sources)Dietary Cholesterol Absorption InhibitorStart: 85-77-1140nuyp 1 tablet by mouth once dailyezetimibe 10 mg Tab 10 mg = 1 tab(s), Oral, Daily Start Date: 06/19/21 Status: OrderedFish Oils (2 sources)Start: 69-04-7567bhxs 1200 mg by mouth once dailyFish Oil 1,200 mg, Oral, Daily Start Date: 06/19/21 Status: Orderedlisinopril 10 mg oral tablet (2 sources)Angiotensin Converting Enzyme InhibitorStart: 70-49-4080kodf 1 tablet by mouth once dailylisinopril 10 mg Tab 10 mg = 1 tab(s), Oral, Daily Start Date: 06/19/21 Status: OrderedMultivitamin preparation (2 sources)Start: 38-21-6981unit 1 tablet by mouth once dailymultivitamin 1 tab(s), Oral, Daily, Refill(s) 0 Start Date: 02/16/24 Status: Orderedrosuvastatin calcium 10 mg oral tablet (2 sources)HMG-CoA Reductase InhibitorStart: 28-12-4493lhqa 1 tablet by mouth once dailyrosuvastatin 10 mg Tab 10 mg = 1 tab(s), Oral, Daily Start Date: 06/19/21 Status: Ordered Problems Active Problems Problem ClassificationProblemDateDocumented DateEpisodic/ChronicAcute cerebrovascular disease (2 sources)Cerebrovascular vycvuloo87-18-6144UldedtmBlymt myocardial infarction (2 sources)Myocardial nnmsjuhrxj45-62-7339OkcyeyrSrhiyxkx (2 sources)Arcmywam57-39-2492MzcqgmxKvdznjvl atherosclerosis and other heart disease (7 sources)Atherosclerotic heart disease of [place] coronary artery without angina pectoris; Translations: [Coronary arteriosclerosis]Onset: 08-19-2022 59-75-4913HdgvocjWrnvozhe mellitus without complication (4 sources)Other abnormal glucose; Translations: [OTHER ABNORMAL GLUCOSE]Onset: 82-78-2149WtngmkftZdpgwxbgw of lipid metabolism (9 sources)Hyperlipidemia, unspecified; Translations: [Hyperlipidemia]Onset: 98-71-6355GrcqjyeFgxdzptja hypertension (5 sources)Essential (primary) hypertension; Translations: [Hypertensive disorder]Onset: 884340-68-0586FvkrdkoTfaachz and fatigue (1 source)Other fatigue; Translations: [OTHER FATIGUE]Onset: 43-78-0030Ensvblam Osteoarthritis (2 sources)Vrbxkefnsjheaf69-96-5417PrpqlsaAvimtuxqquaq (2 sources)Urxyjzthiwpy52-52-8014CfeadffBvrtz gastrointestinal disorders (2 sources)Occult blood in cvcbyy95-86-4618BhrgjjicHdeqy nutritional; endocrine; and metabolic disorders (2 sources)Body mass index 30+ - dabktbo35-54-6211ZemrluaWciay nutritional; endocrine; and metabolic disorders (2 sources)Morbid hwotvju57-21-1058MznnvypDucys screening for suspected conditions (not mental disorders or infectious disease) (2 sources)Encounter for screening for malignant neoplasm of prostate; Translations: [Encounter for screening for malignant neoplasm of rectum]Onset: 20-95-6810EgutbyseWldtq skin disorders (2 sources)Hypertrophic condition of skin; Translations: [Other hypertrophic disorders of the skin]Onset: 57-68-8810BwpplriqUapyv skin disorders (2 sources)Skin hcc53-85-0000WocygftpEtad-; endo-; and myocarditis; cardiomyopathy (except that caused by tuberculosis or sexually transmitted disease) (2 sources)CardiomyopathyOnset: 067923-28-9795RsgcadqRxumsorfjoz; intervertebral disc disorders; other back problems (2 sources)Degeneration of lumbar intervertebral cclc10-55-4831Qbjzhcu Spondylosis; intervertebral disc disorders; other back problems (2 sources)Spinal stenosis of lumbar eoftqf11-46-2404Daovcvro Past or Other Problems Problem ClassificationProblemDateDocumented DateEpisodic/ChronicCoronary atherosclerosis and other heart disease (2 sources)Presence of aortocoronary bypass graft; Translations: [Presence of aortocoronary bypass graft]Onset: 19-25-7122TjgfbuzjOfoez liver diseases (2 sources)Abnormal levels of other serum enzymes; Translations: [Abnormal levels of other serum enzymes]Onset: 89-02-1057Blgsffow Results Test NameValueInterpretationReference DuzjgLmlyqulf38pp ----- Message ----- From: Bryce Huerta MD Sent: 03/27/2025 12:18 PM EDT To: Sunita Blanco MA His echo was ok, follow up as planned. Advised patient of Dr. Huerta's finding. Patient verbalized understanding.NormalUnGeorgetown Behavioral HospitalOrders Onlyon 65-24-1286Dvsqqh [id number] Gretchen Delatorre 1950 M Date Provider Department Center 03/24/20[id number] RONAL Monsalve Family History Family history unknown: YesNormalUniversCincinnati Children's Hospital Medical CenterOffice Visit on 85-86-0288Worelm-up [id number] Gretchen Delatorre 1950 M Date Provider Department Center 10/18/2024 [facility] RONAL Monsalve Family History Family history unknown: Yes Level of Service:00306 MS OFFICE/OUTPATIENT ESTABLISHED LOW MDM 20 [facility] HospitalPathology Noteon 06-49-9325Slodlfwmd Note [id number]#1.00TIFKettering Health Greene MemorialAmbulatory Visit Summaryon 67-98-2451Vxjwgkaifk Visit Summary GRETCHEN DELATORRE :1950 Visit Date:03/02/2024 [...] choosing us for your care. [facility]General [facility] Office/Clinic Noteon 68-63-5372Kkbnatg Surgery Office/Clinic NoteChief Complaint in-office excisional biopsy [...] (COVID-19) mRNA BNT-162b2 vax 02/06/2021 RecordedSelect Medical Specialty Hospital - Southeast OhioComment on above:Result Comment: Electronically Signed By: Haroon DON MD\Date and Time Signed: 03/02/24 15:16 Feliberto 03-02-2024L Specimen: [id number] Received: 03/03/24 Status: MICHELLE Santana Num: [id number] Spec Type: Surgical Subm Dr: Haroon Don MD FACS Tissues: A Skin-Other than Cyst, tag, debridement or plastic repair (RT CHEST WALL) Procedures: HE/4, Gross/Micro L4 Age/ Patient Sex Location Account Attending Physician Gretchen Delatorre 73/M [place]E[facility] [id number] Haroon Don MD FACS SPEC NUM: [id number] RECD: 03/03/24 STATUS: MICHELLE SANTANA NUM: [id number] PIYUSH: 03/02/24- DR: Haroon Don MD FACS ENTERED: 03/03/[address] [facility] [address]: Ava Salomon SPEC TYPE: [...] skin tag over several years CPT Codes 22277 Specimen: [id number] Received: 03/03/24 Status: MICHELLE Santana Num: [id number] Spec Type: Surgical Subm Dr: Haroon Don MD FACS Tissues: A Skin-Other than Cyst, tag, debridement or plastic repair (RT CHEST WALL) Procedures: , Gross/Micro L4 Patient: Gretchen Delatorre [id number] (Continued) Signed (signature on file) Misael Erazo MD 03/04/[address] [place] [address] Physician GroupAmbulatory Visit Summaryon 90-99-0645Dwmkitpcwb Visit Summary GRETCHEN DELATORRE A :1950 Visit [...] JAIME, Haroon Ellison Where: General Surgery Niljaney/Callie [facility] Facesheeton 36-04-1862Gmtzgfmsj [id number]#1.00TIFKettering Health Greene MemorialPhysician Referralon 60-07-8210Lpxmpuzzl Referral [id number]#1.00TIFKettering Health Greene MemorialPhysician Referralon 74-48-0079Cosissyki Referral [id number]#1.00[facility] InstituteOCC BLD IMMUNO SCREENon 88-43-8423LYIUGC BLOODPositiveAbnormalNEGATIVEThe [facility] HospitalComment on above:Performed By: #### CMP, CK, LIPID #### [facility] [address] [address] [address] Tyrell Brooks AUTO DIFFon 83-90-1809VCXF #0.0 103/ulNormal0.0-0.1[facility] For RehabilitationComment on above:Performed By: #### CBC #### [facility] [address] [address] [address] Tyrell Amandasophils/100 WBC (Bld)0.5 %Normal0.2-2.0[facility] Comment on above:Performed By: #### CBC #### [facility] [address] [address] [address] Tyrell Crenshaw #0.2 103/ulNormal0.0-0.7The [facility] HospitalComment on above: Performed By: #### CBC #### [facility] [address] [place] [address] Dr. Tyrell Cernaosinophils/100 WBC (Bld)2.6 %Normal0.9-7.0The [facility] Comment on above:Performed By: #### CBC #### [facility] [address] [place] [address] Dr. Tyrell Cernarythrocyte distribution width (RBC) [Ratio]11.7 %Qkmgxi32.0-15.0 The [facility] on above:Performed By: #### CBC #### [facility] [address] [place] [address] Dr. Tyrell CasillasHematocrit (Bld) [Volume fraction]39.9 %Critically low42.0-54.0 The [facility] HospitalComaspirus keweenaw hospital on above:Performed By: #### CBC #### [facility] [address] [place] [address] Dr. Tyrell CasillasHemoglobin (Bld) [Mass/Vol]13.9 g/dLCritically low14.0-18.0The [facility] HospitalComment on above:Performed By: #### CBC #### [facility] [address] [place] [address] Dr. Tyrell Bermeo #0.02 10e3/ulNormal0.00-0.03The [facility] HospitalComaspirus keweenaw hospital on above:Performed By: #### CBC #### [facility] [address] [place] [address] Dr. Tyrell Bermeo %0.3 %Normal0.0-0.5The [facility] on above: Performed By: #### CBC #### [facility] [address] [place] [address] Dr. Tyrell TalleyH #1.7 103/ulNormal1.2-3.8The [facility] HospitalComaspirus keweenaw hospital on above:Performed By: #### CBC #### [facility] [address] [place] [address] Dr. Tyrell Woodruffmphocytes/100 WBC (Bld)28.1 %Aejdun53.5-60.0The [facility] HospitalComaspirus keweenaw hospital on above:Performed By: #### CBC #### [facility] [address] [place] [address] Dr. Tyrell CasillasMANUAL DIFF REQNONormalThe [facility] HospitalComment on above: Performed By: #### CBC #### [facility] [address] [address] [address] Tyrell Villarreal (RBC) [Entitic mass]32.3 qmRkcsfq01.9-34.0The [facility] HospitalComment on above:Performed By: #### CBC #### [facility] [address] [place] [address] Dr. Tyrell Villarreal (RBC) [Mass/Vol]34.8 g/fMRgzhxz69.9-35.2The [facility] HospitalComment on above:Performed By: #### CBC #### [facility] [address] [place] [address] Dr. Tyrell Villarreal (RBC) [Entitic vol]92.8 eMLrvsfp59.0-94.0The [facility] HospitalComment on above:Performed By: #### CBC #### [facility] [address] [place] [address] Dr. Tyrell Elizondo #0.5 103/ulNormal0.3-0.8The [facility] HospitalComment on above:Performed By: #### CBC #### [facility] [address] [place] [address] Dr. Tyrell Patelocytes/100 WBC (Bld)8.5 %Normal1.7-12.0The [facility] Comment on above:Performed By: #### CBC #### [facility] [address] [place] [address] Dr. Tyrell Willson #3.5 103/ulNormal1.4-6.5The [facility] HospitalComment on above:Performed By: #### CBC #### [facility] [address] [place] [address] Dr. Tyrell Oconnorutrophils/100 WBC (Bld)60.0 %Vfgyuj69.0-75.0The [facility] HospitalComment on above:Performed By: #### CBC #### [facility] [address] [place] [address] Dr. Tyrell Chowdhurylet mean volume (Bld) [Entitic vol]8.3 fLCritically low 9.5-13.5The [facility] on above:Performed By: #### CBC #### [facility] [address] [address] [address] Tyrell CasillasPLT200 103/yuBlpycq674-190Tpr [facility] on above: Performed By: #### CBC #### [facility] [address] [address] [address] Tyrell CasillasRBC4.30 106/ulCritically low4.70-6.10The [facility] HospitalComaspirus keweenaw hospital on above:Performed By: #### CBC #### [facility] [address] [place] [address] Dr. Tyrell CasillasWBC5.9 103/ulNormal4.0-11.0The [facility] HospitalComaspirus keweenaw hospital on above: Performed By: #### CBC #### [facility] [address] [place] [address] Dr. Tyrell CasillasCPKomartin 65-02-4585GL [Catalytic activity/Vol]505 U/LCritically high 39-308The [facility] on above:Performed By: #### CK #### [facility] [address] [place] [address] Dr. Tyrell CasillasFRLUZ MARINA T3on 67-93-8048UOUU T32.98 pg/mlLNormal2.18-3.98[facility] on above:Performed By: #### T4, CMP, TSH, FT3, LIPID #### [facility] [address] [place] [address] Dr. Tyrell CasillasGLYCOHEMOGLOBIN A1Con 52-57-7693AOI RECOMMENDATIONSEE BELOWNormal The [facility] HospitalComaspirus ke[facility] on above:Result Comment: ADA RECOMMENDED LIMIT 4.0 - 6.0 ADA THERAPEUTIC TARGET < 7.0 ACTION SUGGESTED > 7.0Performed By: #### CMP, CK, LIPID #### [facility] [address] [place] [address] Dr. Tyrell CasillasGlucose [Mass/Vol]131 mg/dLNormalThOhioHealth Hardin Memorial HospitalComaspirus keweenaw hospital on above:Performed By: #### CMP, CK, LIPID #### [facility] [address] [address] [address] Tyrell CasillasHbA1c (Bld) [Mass fraction]6.2 %Normal4.5-6.2The [facility] Centerment on above:Performed By: #### CMP, CK, LIPID #### [facility] [address] [address] [address] Tyrell HuangID PROFILEon 65-95-1925DBUM-HDL RATIO NORMSEE BELOWEast Liverpool City HospitalComment on above:Result Comment: 3.3 - 4.4 LOW RISK 4.4 - 7.1 AVERAGE RISK 7.1 - 11.0 MODERATE RISK >11.0 HIGH RISKPerformed By: #### T4, CMP, TSH, FT3, LIPID #### [facility] [address] [place] [address] Dr. Tyrell Harperesterol [Mass/Vol]150 mg/dLNormal<=200The [facility] Comment on above:Performed By: #### T4, CMP, TSH, FT3, LIPID #### [facility] [address] [address] [address] Tyrell Harperesterol in HDL [Mass/Vol]42 mg/xLFoeesr41-26XehWright-Pat[facility] Medical Center on above:Performed By: #### T4, CMP, TSH, FT3, LIPID #### [facility] [address] [address] [address] Tyrell Harperesterol in LDL [Mass/Vol]84.2 mg/dLEast Liverpool City HospitalComaspirus keweenaw hospital on above:Performed By: #### T4, CMP, TSH, FT3, LIPID #### [facility] [address] [address] [address] Tyrell Rosario.total/Cholesterol in HDL [Mass ratio]3.6 {ratio} NormalThe [facility] HospitalComaspirus keweenaw hospital on above:Performed By: #### T4, CMP, TSH, FT3, LIPID #### [facility] [address] [place] [address] Dr. Tyrell SchultzL NORMAL> or = 60 mg/dl - LOW CARDIOVASCULAR RISK <40 mg/dl - HIGH CARDIOVASCULAR RISKEast Liverpool City HospitalComment on above:Performed By: #### T4, CMP, TSH, FT3, LIPID #### [facility] [address] [place] [address] Dr. Tyrell Garcia CALC NORMALSEE BELOWEast Liverpool City HospitalComment on above:Result Comment: <100 mg/dl OPTIMAL 100 - 129 mg/dl NEAR OR ABOVE OPTIMAL 130 - 159 mg/dl BORDERLINE HIGH 160 - 189 mg/dl HIGH >190 mg/dl VERY HIGH Performed By: #### T4, CMP, TSH, FT3, LIPID #### [facility] [address] [place] [address] Dr. Tyrell CasillasTriglyceride [Mass/Vol]119 mg/dLNormal<=150The [facility] Comment on above:Performed By: #### T4, CMP, TSH, FT3, LIPID #### [facility] [address] [place] [address] Dr. Tyrell CasillasVLDL CALC23.8 mg/dLNoOhio State Harding HospitalComment on above: Performed By: #### T4, CMP, TSH, FT3, LIPID #### [facility] [address] [place] [address] Dr. Tyrell CasillasPRODiego 14(COMP METB)on 35-94-7226Jlcvmdx [Mass/Vol]4.5 g/dLNormal 3.4-5.0The [facility] HospitalComment on above:Performed By: #### T4, CMP, TSH, FT3, LIPID #### [facility] [address] [place] [address] Dr. Tyrell CasillasAlbumin/Globulin [Mass ratio]1.1 {ratio}NormalThe [facility] HospitalComment on above:Performed By: #### T4, CMP, TSH, FT3, LIPID #### [facility] [address] [place] [address] Dr. Tyrell Haile [Catalytic activity/Vol]57 U/TAyxmrc68-243Tbo [facility] Centerment on above:Performed By: #### T4, CMP, TSH, FT3, LIPID #### [facility] [address] [address] [address] Tyrell Martin [Catalytic activity/Vol]49 U/KMlnhse48-46Hkh [facility] HospitalComment on above:Performed By: #### T4, CMP, TSH, FT3, LIPID #### [facility] [address] [address] [address] Tyrell Barbosaon gap [Moles/Vol]12.7 mmol/LNormalC[facility] Comment on above:Performed By: #### T4, CMP, TSH, FT3, LIPID #### [facility] [address] [place] [address] Dr. Tyrell Mondragon [Catalytic activity/Vol]35 U/WByfbrn18-49Zkx [facility] HospitalComment on above:Performed By: #### T4, CMP, TSH, FT3, LIPID #### [facility] [address] [place] [address] Dr. Tyrell CasillasBilirubin [Mass/Vol]0.4 mg/dLNormal0.2-1.0[facility] Comment on above:Performed By: #### T4, CMP, TSH, FT3, LIPID #### [facility] [address] [place] [address] Dr. Tyrell CasillasCalcium [Mass/Vol]9.5 mg/dLNormal8.5-10.1[facility] Comment on above:Performed By: #### T4, CMP, TSH, FT3, LIPID #### [facility] [address] [place] [address] Dr. Tyrell CasillasChloride [Moles/Vol]106 mmol/DZgatyw02-820Iwr [facility] Comment on above:Performed By: #### T4, CMP, TSH, FT3, LIPID #### [facility] [address] [place] [address] Dr. Tyrell CasillasCO2 [Moles/Vol]27.4 mmol/KNtsnjd99.0-32.0[facility] Comment on above:Performed By: #### T4, CMP, TSH, FT3, LIPID #### [facility] [address] [address] [address] Tyrell CasillasCreatinine [Mass/Vol]0.96 mg/dLNormal0.70-1.30The [facility] HospitalComment on above:Performed By: #### T4, CMP, TSH, FT3, LIPID #### [facility] [address] [address] [address] Tyrell CernaGFR-AF SENEGALESE>60Normal>=60The [facility] HospitalComment on above:Performed By: #### T4, CMP, TSH, FT3, LIPID #### [facility] [address] [place] [address] Dr. Tyrell CernaGFR-NON AF SENEGALESE>60Normal>=60The [facility] Centerment on above:Performed By: #### T4, CMP, TSH, FT3, LIPID #### [facility] [address] [place] [address] Dr. Tyrell CasillasGlobulin (S) [Mass/Vol]4.0 g/dLNormalThe [facility] HospitalComment on above:Performed By: #### T4, CMP, TSH, FT3, LIPID #### [facility] [address] [place] [address] Dr. Tyrell CasillasGlucose [Mass/Vol]101 mg/hJCffngo87-438Iol [facility] Comment on above:Performed By: #### T4, CMP, TSH, FT3, LIPID #### [facility] [address] [place] [address] Dr. Tyrell CasillasPotassium [Moles/Vol]4.1 mmol/LNormal3.5-5.1The [facility] Comment on above:Performed By: #### T4, CMP, TSH, FT3, LIPID #### [facility] [address] [place] [address] Dr. Tyrell CasillasProtein [Mass/Vol]8.5 g/dLCritically high6.4-8.2The [facility] Centerment on above:Performed By: #### T4, CMP, TSH, FT3, LIPID #### [facility] [address] [place] [address] Dr. Yilan ChangSodium [Moles/Vol]142 mmol/KJjtdrx150-353Zyq [facility] Comment on above:Performed By: #### T4, CMP, TSH, FT3, LIPID #### [facility] [address] [place] [address] Dr. Tyrell CasillasUrea nitrogen [Mass/Vol]18.0 mg/dLNormal7.0-18.0The [facility] HospitalComment on above:Performed By: #### T4, CMP, TSH, FT3, LIPID #### [facility] [address] [place] [address] Dr. Tyrell CasillasUrea nitrogen/Creatinine [Mass ratio]18.8 mg/mgNoOhio State Harding HospitalComment on above:Performed By: #### T4, CMP, TSH, FT3, LIPID #### [facility] [address] [place] [address] Dr. Tyrell CasillasT4on 52-85-9503H8 [Mass/Vol]5.60 ug/dLNormal4.50-12.10The [facility] HospitalComment on above:Performed By: #### T4, CMP, TSH, FT3, LIPID #### [facility] [address] [place] [address] Dr. Tyrell Xiao 97-38-2358RZT9.892 uIU/mLNormal0.358-3.740[facility] For RehabilitationComment on above:Performed By: #### T4, CMP, TSH, FT3, LIPID #### [facility] [address] [place] [address] Dr. Tyrell CasillasCPKomartin 75-44-0349BY [Catalytic activity/Vol]444 U/LCritically high 39-308The [facility] HospitalComment on above:Performed By: #### CMP, CK, LIPID #### [facility] [address] [place] [address] Dr. Tyrell CasillasLIPID PROFILEon 53-85-7636AXYU-HDL RATIO NORMSEE [facility] HospitalComment on above:Result Comment: 3.3 - 4.4 LOW RISK 4.4 - 7.1 AVERAGE RISK 7.1 - 11.0 MODERATE RISK >11.0 HIGH RISKPerformed By: #### CMP, CK, LIPID #### [facility] [address] [place] [address] Dr. Tyrell CasillasCholesterol [Mass/Vol]132 mg/dLNormal<=200The [facility] Comment on above:Performed By: #### CMP, CK, LIPID #### [facility] [address] [place] [address] Dr. Tyrell CasillasCholesterol in HDL [Mass/Vol]39 mg/dLCritically fuu45-87IpgCleveland Clinic Children'S Hospital For RehabilitationComment on above:Performed By: #### CMP, CK, LIPID #### [facility] [address] [place] [address] Dr. Tyrell CasillasCholesterol in LDL [Mass/Vol]72.8 mg/dLNoOhio State Harding HospitalComment on above:Performed By: #### CMP, CK, LIPID #### [facility] [address] [place] [address] Dr. Tyrell Harperesterbg.total/Cholesterol in HDL [Mass ratio]3.4 {ratio} NormalCleveland Clinic Children'S Hospital For RehabilitationComment on above:Performed By: #### CMP, CK, LIPID #### [facility] [address] [place] [address] Dr. Tyrell Beaver NORMAL> or = 60 mg/dl - LOW CARDIOVASCULAR RISK <40 mg/dl - HIGH CARDIOVASCULAR RISKEast Liverpool City HospitalComment on above:Performed By: #### CMP, CK, LIPID #### [facility] [address] [place] [address] Dr. Tyrell CasillasLDL CALC NORMALSEE BELOWEast Liverpool City HospitalComment on above:Result Comment: <100 mg/dl OPTIMAL 100 - 129 mg/dl NEAR OR ABOVE OPTIMAL 130 - 159 mg/dl BORDERLINE HIGH 160 - 189 mg/dl HIGH >190 mg/dl VERY HIGH Performed By: #### CMP, CK, LIPID #### [facility] [address] [place] [address] Dr. Tyrell CasillasTriglyceride [Mass/Vol]101 mg/dLNormal<=150The [facility] Comment on above:Performed By: #### CMP, CK, LIPID #### [facility] [address] [place] [address] Dr. Tyrell YorkLDL CALC20.2 mg/dLNormalThe [facility] HospitalComment on above: Performed By: #### CMP, CK, LIPID #### [facility] [address] [address] [address] Tyrell CasillasPROF 14(COMP METB)on 84-91-0999Wlsyven [Mass/Vol]4.4 g/dLNormal 3.4-5.0The [facility] HospitalComment on above:Performed By: #### CMP, CK, LIPID #### [facility] [address] [place] [address] Dr. Tyrell CasillasAlbumin/Globulin [Mass ratio]1.3 {ratio}NormalThe [facility] HospitalComment on above:Performed By: #### CMP, CK, LIPID #### [facility] [address] [place] [address] Dr. Tyrell Haile [Catalytic activity/Vol]55 U/LJvfpva42-343Pcj [facility] HospitalComment on above:Performed By: #### CMP, CK, LIPID #### [facility] [address] [place] [address] Dr. Tyrell Martin [Catalytic activity/Vol]48 U/RFlvadl80-60Soi [facility] HospitalComment on above:Performed By: #### CMP, CK, LIPID #### [facility] [address] [place] [address] Dr. Tyrell Whittaker gap [Moles/Vol]12.1 mmol/LNormalThe [facility] Comment on above:Performed By: #### CMP, CK, LIPID #### [facility] [address] [place] [address] Dr. Tyrell Mondragon [Catalytic activity/Vol]35 U/UOqwugk21-29Vgj [facility] HospitalComment on above:Performed By: #### CMP, CK, LIPID #### [facility] [address] [place] [address] Dr. Tyrell CasillasBilirubin [Mass/Vol]0.4 mg/dLNormal0.2-1.0The [facility] Comment on above:Performed By: #### CMP, CK, LIPID #### [facility] [address] [place] [address] Dr. Tyrell CasillasCalcium [Mass/Vol]9.0 mg/dLNormal8.5-10.1The [facility] Comment on above:Performed By: #### CMP, CK, LIPID #### [facility] [address] [place] [address] Dr. Tyrell CasillasChloride [Moles/Vol]106 mmol/RDqwfor04-149Plm [facility] Comment on above:Performed By: #### CMP, CK, LIPID #### [facility] [address] [place] [address] Dr. Tyrell CasillasCO2 [Moles/Vol]25.0 mmol/VBzrewi66.0-32.0The [facility] Comment on above:Performed By: #### CMP, CK, LIPID #### [facility] [address] [place] [address] Dr. Tyrell CasillasCreatinine [Mass/Vol]0.85 mg/dLNormal0.70-1.30The [facility] HospitalComment on above:Performed By: #### CMP, CK, LIPID #### [facility] [address] [place] [address] Dr. Tyrell CernaGFR-AF SENEGALESE>60Normal>=60The [facility] HospitalComment on above:Performed By: #### CMP, CK, LIPID #### [facility] [address] [place] [address] Dr. Tyrell CernaGFR-NON AF SENEGALESE>60Normal>=60The [facility] HospitalComment on above:Performed By: #### CMP, CK, LIPID #### [facility] [address] [place] [address] Dr. Tyrell CasillasGlobulin (S) [Mass/Vol]3.4 g/dLNormalThe [facility] HospitalComment on above:Performed By: #### CMP, CK, LIPID #### [facility] [address] [address] [address] Tyrell CasillasGlucose [Mass/Vol]106 mg/rUIwjzoc11-184JicCleveland Clinic Children'S [facility] For [facility] Comment on above:Performed By: #### CMP, CK, LIPID #### [facility] [address] [address] [address] Tyrell CasillasPotassium [Moles/Vol]4.1 mmol/LNormal3.5-5.1The [facility] Comment on above:Performed By: #### CMP, CK, LIPID #### [facility] [address] [address] [address] Tyrell CasillasProtein [Mass/Vol]7.8 g/dLNormal6.4-8.2The [facility] Comment on above:Performed By: #### CMP, CK, LIPID #### [facility] [address] [address] [address] Tyrell CasillasSodium [Moles/Vol]139 mmol/IBuqqkd131-104IevCleveland Clinic Children'S Hospital For Rehabilitation Comment on above:Performed By: #### CMP, CK, LIPID #### [facility] [address] [address] [address] Tyrell CasillasUrea nitrogen [Mass/Vol]15.0 mg/dLNormal7.0-18.0[facility] For RehabilitationComment on above:Performed By: #### CMP, CK, LIPID #### [facility] [address] [address] [address] Tyrell Watts nitrogen/Creatinine [Mass ratio]17.6 mg/mgNormalThe [facility] HospitalComment on above:Performed By: #### CMP, CK, LIPID #### [facility] [address] [place] [address] Dr. Tyrell CasillasCoding Summaryon 38-47-4620Bnpjfm SummaryCODING DATE: 05/31/2020 [facility] STATUS: Home PAYOR: Medicare MC APC DESCRIPTION [...] By: Eugenie George Date Saved: 05/31/2020 01:32 Corey HospitalProvider Orderson 06-98-4307Ubwmqtcs [id number]#1.00OTVermont State Hospital HospitalCoding Summaryon 76-40-5025Fcnhiw SummaryCODING DATE: 05/19/2020 FINAL [facility] STATUS: Home PAYOR: Medicare MC APC DESCRIPTION 5115 Level 5 Musculoskeletal Procedures ADMIT DX: REASON FOR VISIT DX: M16.11 Unilateral primary osteoarthritis, right hip FINAL DX: PRINCIPAL: M16.11 Unilateral primary osteoarthritis, right hip SECONDARY: I10 Essential (primary) hypertension I25.10 Atherosclerotic heart disease of [place] coronary artery without angina pectoris Z86.73 Personal history of transient ischemic attack (TIA), and cerebral infarction without residual deficits [facility] DES[facility] DOCTOR NAME DATE 11623 5115 J1 Arthroplasty, acetabular Quirino, Bairon And [...] Nicci Kee Revised Date Saved: 05/18/2020 12:22 Corey HospitalConsent Formson 96-69-3228Tvbsbpv [id number]#1.00OTJoint Township District Memorial HospitalMedication Managementon 90-61-0850Wmxqbfffal Management [id number]#1.00OTGTOhioHealth Outside Recordson 98-02-7655Hokavbm Records [id number]#1.00[facility] Provider Orderson 29-09-2151Gzjdqqti Orders [id number]#1.00[facility] Telemetry Stripson 40-28-7792Atxsdjxgc Strips [id number]#1.00[facility].Auto Diff 1on 02-14-4601Ivlm Edgar %7 %Normal1-12[facility] HospitalComment on above: Performed By: #### [id number], [id number], [id number] #### [facility] (DEFAULT) [address] [place] [address] 36770Rhgx Abs#0.0 j70Yallgj5.0-0.2[facility] HospitalComment on above:Performed By: #### [id number], 25924938, [id number] #### [facility] (DEFAULT) [address] [place] [address] 64421Qyozdgyta/100 WBC (Bld)0.2 %Normal0.2-2.0[facility] Hospital Comment on above:Performed By: #### 0186286, 74662827, [id number] #### [facility] (DEFAULT) [address] [place] [address] 04703Wad Abs#0.1 i55Aiwoyt5.0-0.4[facility] HospitalComment on above:Performed By: #### 1527191, 52146685, [id number] #### [facility] (DEFAULT) [address] [place] [address] 02456Npkdhayjgei/100 WBC (Bld)1.5 %Normal0.9-4.0[facility] HospitalComment on above:Performed By: #### [id number], 01328409, [id number] #### [facility] (DEFAULT) [address] [place] [address] 23376Yuiqieycajj (Bld) [#/Vol]1.3 o17Htwcft2.3-2.9[facility] HospitalComment on above:Performed By: #### 4698160, 57746975, [id number] #### [facility] (DEFAULT) [address] [place] [address] 28963Qoigiiduuyz/100 WBC (Bld)15 %Yiamzq91-27Iqybwtge Hospital Comment on above:Performed By: #### 1491227, 90615024, [id number] #### [facility] (DEFAULT) [address] [place] [address] 53441Qzfc Abs#0.6 j51Metfqf3.0-0.8[facility] HospitalComment on above:Performed By: #### 8682735, 93232760, [id number] #### [facility] (DEFAULT) [address] [place] [address] 48104Pesp Abs#6.4 y84Etsbpa2.5-9.2[facility] HospitalComment on above:Performed By: #### 5025331, 92452218, [id number] #### [facility] (DEFAULT) [address] [place] [address] 37271Kshebszrlka/100 WBC (Bld)76 %Eeznkc35-33Gvxjimdq Hospital Comment on above:Performed By: #### 5645719, 92267683, [id number] #### [facility] (DEFAULT) [address] [place] [address] 54528OAM w/ Auto Diffon 45-66-7408Gclzdxcuogd distribution width (RBC) [Ratio]11.9 %Bushwa47.5-15.0[facility] HospitalComment on above: Performed By: #### 4346257, 39717732, [id number] #### [facility] (DEFAULT) [address] [place] [address] 18622Txvpdrcdim (Bld) [Volume fraction]26.9 %Low34.8-51.9 [facility] HospitalComment on above:Performed By: #### 6431845, 95059807, [id number] #### [facility] (DEFAULT) [address] [place] [address] 98401Rjslghuceb (Bld) [Mass/Vol]9.2 g/dLLow11.8-17.7[facility] HospitalComment on above:Performed By: #### 6916594, 81529855, [id number] #### [facility] (DEFAULT) [address] [place] [address] 38290Rqq Diff?AutoNormalKnox Community Hospital HospitalComment on above: Performed By: #### 1702502, 58839028, [id number] #### [facility] (DEFAULT) [address] [place] [address] 13744SJZ (RBC) [Entitic mass]32 xyBblkmb55-65Gnlzumkj Hospital Comment on above:Performed By: #### 4976657, 38416290, [id number] #### [facility] (DEFAULT) [address] [place] [address] 39319YZCL (RBC) [Mass/Vol]34 g/cUUixodb46-23Jczfuwie Hospital Comment on above:Performed By: #### 2375201, 79441402, [id number] #### [facility] (DEFAULT) [address] [place] [address] 51665SEF (RBC) [Entitic vol]94 rUEqprmv78-186Hrggycrd Hospital Comment on above:Performed By: #### 9533371, 60591976, [id number] #### [facility] (DEFAULT) [address] [place] [address] 67371Hyyiiqrp mean volume (Bld) [Entitic vol]9.4 fLNormal 6.3-10.2MMercy Health St. Joseph Warren HospitalComment on above:Performed By: #### 4166733, 63103797, [id number] #### [facility] (DEFAULT) [address] [place] [address] 30864Cdtzthfqo (Bld) [#/Vol]203 c54Iqqumq141-796Oowuenha HospitalComment on above:Performed By: #### 6918500, 47321853, [id number] #### [facility] (DEFAULT) [address] [place] [address], [place] [address]PBK (Bld) [#/Vol]2.87 p43Uaa3.70-5.30[facility] Comment on above:Performed By: #### 5864171, 22637917, [id number] #### [facility] (DEFAULT) [address] [place] [address] 49980PRK (Bld) [#/Vol]8.5 c06Yzuhec6.5-10.5[facility] Comment on above:Performed By: #### 1664892, 91468683, [id number] #### [facility] (DEFAULT) [address] [place] [address] 05855Zcscohwmp Noteon 49-88-0855Rrlzatzrn NoteEducation Materials POST OPERATIVE TOTAL HIP DISCHARGE [...] can be done to rule of a DVT.[facility] HospitalExtra [facility] 36-25-9257Vwrk CollectedHolzer Health SystemComment on above:Performed By: #### 1332624, 19966389, [id number] #### [facility] (DEFAULT) [address] [place] [address] 24565Lengivvch Patient Summaryon 16-96-3250Bvnzwebbn Patient Summary[address] [address] Patient Discharge Instructions Name: GRETCHEN DELATORRE : 1950 Patient Address: [address] [facility] [facility] [address] [place] [address] Primary Care Provider: Name: DAKSHA OREILLY After you are discharged if you find you have any questions, please, call [phone] ext [phone] to speak to a nurse. Discharge Diagnosis: Primary osteoarthritis of right hip Prescription Information: If you have been given a prescription for narcotics, seek immediate medical attention if you have any difficulty breathing or any sudden status changes such as confusion andsleepiness. If you or anyone you know is experiencing suicidal thoughts, mental health, alcohol and/or drug addiction problems; contact the [facility] 26/05 Crisis Hotline -Text 4HWFO to 624466. If you received any narcotics, sedation, or [...] business decisions or sign any legal documents [facility] would like to thank you for allowing us to assist you with your healthcare needs.The following includes patient education materials and information regarding your injury/illness. GRETCHEN DELATORRE has been given the following list of follow-up instructions, prescriptions, and patient education materials: Follow-up Instructions With: Address: When: [place]on [address] [facility] [address] [place] [address] Business (2) 05/25/2020 2:00 PM With: Address: When: DAKSHA OREILLY [address] [place] [address], [facility] [place] [place] [address] Business (1) Medications During the [...] Centers for Disease Control and Prevention July 2014NoC[facility] Nutrition Noteon 02-17-8150Vnfyodqyb NotePt eating well avg 70-100% of meals and taking supplements as ordered. No new wts. Labs reviewed, post op anemia noted. No new rec'd at this time. Will continue to follow.[facility] Noteon 31-30-7540Krqjobtw NoteI have personally reviewed the patient's current [...] Echavarria [Verified on: 05/17/2020 08:32 EDT] Eliezer EchavarriaSelect [facility] Note - Nurseon 05-17-2020 Progress Note - [...] [Verified on: 05/17/2020 17:30 EDT] Bilger RN, [facility]Select [facility] Note-Physicianon 05-17-2020 Progress Note-PhysicianDATE OF POSTOPERATIVE FOLLOW [...] Win's office. Bert Aguila DO JOB #: [id number] bk [Electronically Signed on: 05/18/2020 11:35 EDT] BERT AGUILA DO [Verified on: 05/18/2020 11:35 EDT] BERT AGUILA DO [Transcribed on: 05/17/2020 14:48 EDT] GDUNOhioHealth [facility].Auto Diff 1on 69-31-8532Celt Edgar %9 %Normal1-12 [facility] HospitalComment on above:Performed By: #### 8576909, 34835620, [id number] #### [facility] (DEFAULT) [address] [place] [address] 50020Ljdv Abs#0.0 r41Mkxexk8.0-0.2Magrregency hospital [facility] HospitalComment on above:Performed By: #### 0414028, 99551312, [id number] #### [facility] (DEFAULT) [address] [place] [address] 94879Ryeznlkeh/100 WBC (Bld)0.1 %Low0.2-2.0[facility] Comment on above:Performed By: #### 6285095, 65125022, [id number] #### [facility] (DEFAULT) [address] [place] [address] 21445Qhv Abs#0.0 m32Aqldyw1.0-0.4Masouthwest general health center HospitalComment on above:Performed By: #### 5858633, 18331648, [id number] #### [facility] (DEFAULT) [address] [place] [address] 00118Wpfpmgnoexf/100 WBC (Bld)0.2 %Low0.9-4.0Masouth[facility] center Hospital Comment on above:Performed By: #### 7272776, 31098709, [id number] #### [facility] (DEFAULT) [address] [place] [address] 03758Jwesznbnohj (Bld) [#/Vol]1.8 r74Vzuidf2.3-2.9Magrregency hospital [facility] HospitalComment on above:Performed By: #### 0228210, 62803809, [id number] #### [facility] (DEFAULT) [address] [place] [address] 42361Bkexxcjllch/100 WBC (Bld)14 %Bmygbm03-65[facility] Comment on above:Performed By: #### 5941179, 82728239, [id number] #### [facility] (DEFAULT) [address] [place] [address] 15554Dvjz Abs#1.1 j28Ucwm7.0-0.8[facility] HospitalComment on above:Performed By: #### 0472789, 51079674, [id number] #### [facility] (DEFAULT) [address] [place] [address] 45658Ezum Abs#9.9 w04Uovk0.5-9.2[facility] HospitalComment on above:Performed By: #### 5764257, 97158369, [id number] #### [facility] (DEFAULT) [address] [place] [address] 66730Jiplknbogtz/100 WBC (Bld)77 %Gddtne33-63Ffkhissf Hospital Comment on above:Performed By: #### 5538942, 50055044, [id number] #### [facility] (DEFAULT) [address] [place] [address] 11422ZNQ w/ Auto Diffon 25-32-8289Eyirkujmsti distribution width (RBC) [Ratio]12.1 %Yotpmd50.5-15.0[facility] HospitalComment on above: Performed By: #### 4638864, 78346698, [id number] #### [facility] (DEFAULT) [address] [place] [address] 76331Ehucqfbeyg (Bld) [Volume fraction]30.8 %Low34.8-51.9 [facility] HospitalComment on above:Performed By: #### 8216596, 04824771, [id number] #### [facility] (DEFAULT) [address] [place] [address] 09913Mnafnvztqu (Bld) [Mass/Vol]10.5 g/dLLow11.8-17.7[facility] HospitalComment on above:Performed By: #### 8106105, 46037921, [id number] #### [facility] (DEFAULT) [address] [place] [address] 03907Huh Diff?AutoNormalKnox Community Hospital HospitalComment on above: Performed By: #### 0669692, 78317958, [id number] #### [facility] (DEFAULT) [address] [place] [address] 60553TLQ (RBC) [Entitic mass]32 yiNpoayc27-96Mndeetfc Hospital Comment on above:Performed By: #### 9681683, 90177477, [id number] #### [facility] (DEFAULT) [address] [place] [address] 10398HVFK (RBC) [Mass/Vol]34 g/nYDedatu95-69Rbeuidhq Hospital Comment on above:Performed By: #### 6246530, 09845473, [id number] #### [facility] (DEFAULT) [address] [place], [place] [address]V (RBC) [Entitic vol]93 hHXemegz32-904Zktgkpus Hospital Comment on above:Performed By: #### 9000852, 26023562, [id number] #### [facility] (DEFAULT) [address] [place] [address] 67152Ubbomkkp mean volume (Bld) [Entitic vol]9.2 fLNormal 6.3-10.2MMercy Health St. Joseph Warren HospitalComment on above:Performed By: #### 3976579, 45841266, [id number] #### [facility] (DEFAULT) [address] [place] [address] 28516Oiktxppfi (Bld) [#/Vol]238 u19Lpuskc700-368Czrleein HospitalComment on above:Performed By: #### 8022104, 96295786, [id number] #### [facility] (DEFAULT) [address] [place] [address] 52585RGX (Bld) [#/Vol]3.31 o10Sld9.70-5.30[facility] Comment on above:Performed By: #### 9750484, 39685642, [id number] #### [facility] (DEFAULT) [address] [place], [place] [address]WSF (Bld) [#/Vol]12.9 k78Rtbe9.5-10.5[facility] Comment on above:Performed By: #### 0929886, 60078654, [id number] #### [facility] (DEFAULT) [address], [place] [address]Yfreeoye Note-Physicianon 31-81-1240Mnbemrmn Note-PhysicianDATE OF POSTOPERATIVE ORTHOPEDIC PROGRESS NOTE: 05/16/2020 [...] x-ray. PROGNOSIS: Good. Bert Aguila, JOB #: [id number] bk [Electronically Signed on: 05/17/2020 11:24 EDT] AUSTIN AGUILAIrene WHITE [Verified on: 05/17/2020 11:24 EDT] BERT AGUILA DO [Transcribed on: 05/16/2020 13:06 EDT] [facility].Auto Diff 1on 86-38-6981Lrdc Edgar %1 %Normal1-12 [facility] HospitalComment on above:Performed By: #### 9780449, 60527017, [id number] #### [facility] (DEFAULT) [address] [place] [address] 82167Llfg Abs#0.0 j58Leeuls2.0-0.2Magrregency hospital [facility] HospitalComment on above:Performed By: #### 1348881, 54888867, [id number] #### [facility] (DEFAULT) [address] [place] [address] 78417Rihzzfwzw/100 WBC (Bld)0.1 %Low0.2-2.0[facility] Comment on above:Performed By: #### 6436864, 94463818, [id number] #### [facility] (DEFAULT) [address] [place] [address] 92398Cnd Abs#0.0 z86Xzznvy4.0-0.4[facility] HospitalComment on above:Performed By: #### 6715795, 05632542, [id number] #### [facility] (DEFAULT) [address] [place] [address] 95202Lbupleomwdi/100 WBC (Bld)0.1 %Low0.9-4.0[facility] Comment on above:Performed By: #### 6805979, 58277475, [id number] #### [facility] (DEFAULT) [address] [place] [address] 35008Psobgxougpj (Bld) [#/Vol]0.4 n46Qwe9.3-2.9Magruder HospitalComment on above:Performed By: #### 3730432, 80086490, [id number] #### [facility] (DEFAULT) [address] [place] [address] 19255Hujdjeccsbr/100 WBC (Bld)4 %Yte60-51Kdjwyypr Hospital Comment on above:Performed By: #### 6892606, 30472109, [id number] #### [facility] (DEFAULT) [address] [place] [address] 84301Qjnl Abs#0.2 r19Azradk6.0-0.8Magruder HospitalComment on above:Performed By: #### 4365831, 32499049, [id number] #### [facility] (DEFAULT) [address] [place] [address] 06137Jjrk Abs#10.0 c20Gglw0.5-9.2[facility]rreg[facility] HospitalComment on above:Performed By: #### 8988004, 47908559, [id number] #### [facility] (DEFAULT) [address] [place] [address] 53664Gpjthyelsdz/100 WBC (Bld)94 %Vjzz82-07Qmxmpbzg Hospital Comment on above:Performed By: #### 6366966, 24985048, [id number] #### [facility] (DEFAULT) [address] [place] [address] 40947Pbrvjajlrx Noteon 97-18-2303Pdnhzcdwzi NotePatient: GRETCHEN DELATORRE Age: 69 years Sex: [...] AAA (abdominal aortic aneurysm) / SNOMED CT 116840444 / Confirmed CAD (coronary artery disease) / SNOMED CT 94922893 / Confirmed Myocardial infarct / SNOMED CT 31992442 / Confirmed Resolved: CVA, old, cognitive deficits / SNOMED CT 6220579315 Histories Family History: Entire family history is negative. Procedure history: AAA - Abdominal aortic aneurysm (813437457) in 2012 at 62 Years. AAA - Abdominal aortic aneurysm (260296084) in 2005 at 55 Years. quaddruple cardiac byapss in 2005 at 55 Years. back surgery in 2004 at 54 Years. knee scope in 2004 at 54 Years. Comments: 04/27/2020 14:05 Abimbola Pickering RN right Hip arthroplasty (100202117) in 2004 at 53 Years. AAA - Abdominal aortic aneurysm (432069559) in 2003 at 52 Years. Social History [...] ECG interpretation: SR, occ PVCs, NSTWA. Plan [place] [employer]hesi[employer]#(ASA) physical status classification: Class III. Anesthetic Preoperative Plan Anesthesia: General. . Anesthetic plan, risks, benefits, and alternatives discussed with the patient and/or family. Patient verbalized understanding. Informed consent was given. Consent was signed by the patient. [Electronically Signed on: 05/15/2020 08:26 EDT] Tom Casiano MD [Verified on: 05/15/2020 08:26 EDT] Tom Casiano MDOhioHealth Dublin Methodist Hospital w/ Auto Diffon 68-80-9370Rjrjnrottfh distribution width (RBC) [Ratio]12.1 %Iftonh91.5-15.0[facility] HospitalComment on above:Performed By: #### 0629315, 11279327, [id number] #### [facility] (DEFAULT) [address] [place] [address] 91164Slpgscjfca (Bld) [Volume fraction]33.2 %Low34.8-51.9 [facility] HospitalComment on above:Performed By: #### 3807006, 74030990, [id number] #### [facility] (DEFAULT) [address] [place] [address] [id number] (Bld) [Mass/Vol]11.5 g/dLLow11.8-17.7[facility] HospitalComment on above:Performed By: #### [id number] #### [facility] (DEFAULT) [address] [place] [address] [id number] Diff?AutoNormalKnox Community Hospital HospitalComment on above: Performed By: #### [id number] #### [facility] (DEFAULT) [address] [place] [address] [id number] (RBC) [Entitic mass]32 siXkvlzo76-01[facility] Comment on above:Performed By: #### [id number], [id number], [id number] #### [facility] (DEFAULT) [address] [place] [address] 75857ZVYE (RBC) [Mass/Vol]35 g/dKQfxljt69-32Opumfwjg Hospital Comment on above:Performed By: #### [id number], [id number], [id number] #### [facility] (DEFAULT) [address] [place] [address] 58623EFK (RBC) [Entitic vol]92 pGBjbuuq44-573Tznacoad Hospital Comment on above:Performed By: #### [id number], [id number], [id number] #### [facility] (DEFAULT) [address] [place] [address] 77160Twqtwfcm mean volume (Bld) [Entitic vol]9.5 fLNormal 6.3-10.2[facility] HospitalComment on above:Performed By: #### [id number], [id number], [id number] #### [facility] (DEFAULT) [address] [place] [address] 87933Lohyiypos (Bld) [#/Vol]205 t23Yfuwcm086-307Xxbhufsf HospitalComment on above:Performed By: #### [id number], [id number], [id number] #### [facility] (DEFAULT) [address] [place] [address] 64755HEL (Bld) [#/Vol]3.62 h48Cae9.70-5.30[facility] Comment on above:Performed By: #### [id number], [id number], [id number] #### [facility] (DEFAULT) [address] [place] [address] 14555EVJ (Bld) [#/Vol]10.6 z42Hvsg6.5-10.5[facility] Comment on above:Performed By: #### [id number], [id number], [id number] #### [facility] (DEFAULT) [address] [place] [address] 76238Ddfcgyd and Physicalon 69-36-6086Vjipspu and Physical [id number]#1.00OTGTIFFNoalKnox Community Hospital HospitalMAGR Intraoperative Recordon 82-24-1664XDIJ Intraoperative RecordMAGR Intra-Op Record Summary Primary Physician: Bairon Win DO Finalized Date/Time: 05/15/20 17:18:47 Pt. Name: GRETCHEN DELATORRE/Sex: 1950 MALE Med Rec #: [id number] Physician: Bairon Win DO Financial #: [id number] Pt. Type: O Room/Bed: [facility]/1 Admit/Disch: 05/15/20 06:07:00 - Institution: Case Times MAGR Entry 1 Patient In Room Time 05/15/20 09:01:00 Out Room Time 05/15/20 11:20:00 Anesthesia Start Time 05/15/20 09:02:00 Stop Time 05/15/20 11:20:00 Surgery Start Time 05/15/20 09:31:00 Stop Time 05/15/20 11:15:00 Last Modified By: tEhel Gibson RN 05/15/20 14:15:45 Case Attendance MAGR Entry 1 Entry 2 Entry 3 Case Attendee Bairon Win Satya S MD Sauer, Stephanie RN Andrew DO Role Performed Surgeon - Primary Anesthesiologist of [facility] Marker Designer Record Time In 05/15/20 09:01:00 05/15/20 09:01:00 05/15/20 09:01:00 Time Out 05/15/20 11:20:00 05/15/20 11:20:00 05/15/20 11:20:00 Procedure Arthroplasty Total Arthroplasty Total Arthroplasty Total Hip(Right) Hip(Right) Hip(Right) Last Modified By: Ethel Gibson RN, Stephanie RN Sauer, Stephanie RN 05/15/20 14:15:50 05/15/20 14:15:50 05/15/20 14:15:50 Entry 4 Entry 5 Entry 6 Case Attendee Adina Guzman CST, Adkins, Brittany E CST Regina LOCKS TENDER Role Performed Scrub Personnel Transformation Analyst Transformation Analyst Time In 05/15/20 09:01:00 05/15/20 09:01:00 05/15/20 [...] CUFF REG FORCED WARM AIR Serial ?# [id number] Equipment Setting FACTORY DEFAULT 43 DEGREES [...] By: Pedro Edgar DO Size 54MM 58MM Spinner Tender DePuy DEPUY DEPUY Catalog # Lot Number [id number] Expiration Date 03/02/30 04/02/30 Serial Number REF [id number] REF [id number] REF [id number] Device Identifier Human Readable PAUL Machine Readable PAUL MR Class Implant Usage Data Site Hip R Hip R Hip R Quantity 1 1 1 Reason for Explant Reason Not Retained Explant Disposition Medical Practice Administrator Sterility External Indicator Result Internal Indicator Results [...] James Huddleston, James By: Pedro WHITE Pedro Edagr DO Size 38 ID 56OD 6.5MM X 25MM KA SIZE 11 Spinner Tender DEPUY DEPUY DEPUY Catalog # Lot Number [id number] Expiration Date 12/31/24 10/02/29 07/03/24 Serial Number REF [id number] REF [id number] REF [id number] Device Identifier Human Readable PAUL Machine Readable PAUL MR Class Implant Usage Data Site Hip R Hip R Hip R Quantity 1 2 1 Reason for Explant Reason Not Retained Explant Disposition Medical Practice Administrator Sterility External Indicator Result Internal Indicator Results Outcome Met (O.30) Yes Yes Yes Last Modified By: Ethel Gibson RN, Stephanie RN Sauer, Stephanie RN 05/15/20 15:23:55 05/15/20 15:23:55 05/15/20 15:23:55 Entry 7 Procedure Arthroplasty Total Hip(Right) Implant Action Implant Description DEPUY M SPEC METAL FEMORAL HEAD Implant Information Implant/Explant 05/15/20 10:25:00 Date/Time Implanted/Explanted Bairon Win By: Pedro Size 036MM 10/16 TAPER Spinner Tender DEPUY Catalog # Lot Number [id number] Expiration Date 07/03/24 Serial Number REF 1365-51-000 Device Identifier Human Readable PAUL Machine Readable PAUL MR Class Implant Usage Data Site Hip R Quantity 1 Reason for Explant Reason Not Retained Explant Disposition Medical Practice Administrator Sterility External Indicator Result Internal Indicator Results [...] Signatures Signed By: Ethel Gibson RN 05/15/20 17:18[facility] PACU Recordon 05-95-1120QXKG PACU RecordMAGR PACU Record Summary Primary Physician: Bairon Win DO Finalized Date/Time: 05/15/20 12:19:32 Pt. Name: NANDINIGRETCHEN./Sex: 1950 MALE Med Rec #: [id number] Physician: Bairon Win DO Financial #: [id number] Pt. Type: D Room/Bed: 221/1 Admit/Disch: 05/15/20 06:07:00 - Institution: PACU Case Times MAGR Entry 1 In PACU I 05/15/20 11:15:00 Discharge from PACU 05/15/20 12:05:00 I Last Modified By: Francesca Pastrana RN 05/15/20 12:19:29 Finalized By: Francesca Pastrana RN Document Signatures Signed By: Francesca Pastrana RN 05/15/20 12:19[facility] Preoperative Recordon 70-19-5115SNGI Preoperative RecordMAGR Pre-Op Record Summary Primary Physician: Bairon Win DO Finalized Date/Time: 05/15/20 13:36:44 Pt. Name: GRETCHEN DELATORRE /Sex: 1950 MALE Med Rec #: [id number] Physician: Bairon Win DO Financial #: [id number] Pt. Type: O Room/Bed: 221/1 Admit/Disch: 05/15/20 [...] Signatures Signed By: Francesca Pastrana RN 05/15/20 13:36[facility] HospitalNutrition Noteon 05-15-2020 Nutrition NotePt admitted for [...] supplements, vitamins/ minerals already in place. To follow.[facility] HospitalOperative Report - Surgeon/Physicianon 05-15-2020 Operative Report [...] impacted a 56 mm gription cup ( Slicebooksuy) this was secured with 2 6.5 mm [...] both with saline and then also diluted [place] dine mixture. The fascial planes were injected [...] [Verified on: 05/15/2020 12:17 EDT] [facility]2020 Pharmacy NoteI have personally [...] Reyna [Verified on: 05/15/2020 15:26 EDT] Radha ReynaramonMarymount HospitalXR Hip Complete Righton 16-31-1399TM Hip Complete RightEXAM: Right hip HISTORY: Postoperative [...] Signature): Haroon Javier 05/15/20 11:59 a Technologist: ISRRAELAvita Health System Bucyrus HospitalABORhon 34-37-0385QTC and [facility] Nom (Bld)Hx Check: Not Found Anti-A: 4+ Anti-B: 0 Anti-D: 4+ DCon: NT A1: 0 B: 4+ ABORh Interp: A POSKnox Community Hospital HospitalComment on above:Performed By: #### [id number] #### [facility] (DEFAULT) [address] [place] [address] 50586BOYEt Retypeon 85-31-9326UMS and [facility] Nom (Bld)Ordered by Discern. Anti-A: 4+ Anti-B: 0 Anti-D: 4+ DCon: NT A1: 0 B: 4+ ABORh Retype: A POSKnox Community Hospital HospitalComment on above:Performed By: #### [id number] #### [facility] (DEFAULT) [address] [place] [address] 53338CJIU Gelon 46-44-3050DSKX GelNegativeClermont County Hospital HospitalComment on above:Performed By: #### [id number] #### [facility] (DEFAULT) [address] [place] [address] 44155Ivuia Bank IDon [id number] Bank IDBBID: [id number] [facility] HospitalComment on above:Performed By: #### [id number] #### [facility] (DEFAULT) [address] [place] [address] 29113E&Hon 39-29-4513Kafeujnafk (Bld) [Volume fraction]38.3 % Cjrblk52.8-51.9[facility] HospitalComment on above:Performed By: #### [id number] #### [facility] (DEFAULT) [address] [place] [address] 90867Ywesrtkroo (Bld) [Mass/Vol]13.3 g/oYKakleo74.8-17.7 [facility] HospitalComment on above:Performed By: #### [id number] #### [facility] (DEFAULT) [address] [place] [address] 05943LRBP-HpA-3 (COVID-19) PCRon 14-23-0184AAEDP-19 PCRNot DetectedNormalNot DetectedKnox Community Hospital HospitalComment on above:Performed By: #### [id number] #### [facility] (DEFAULT) [address] [place] [address] 36906Nzfnqrmr Note - Nurseon 59-82-8680Uqzjucim Note - Nurse Spoke with pt regarding arrival time of 0600 and NPO after midnight. Pt instructed he will need to be tested for COVID on Friday when he comes in for type and screen. Verbalized understanding. [Electronically Signed on: 05/12/2020 09:38 EDT] Sara Alvarez RN [Verified on: 05/12/2020 09:38 EDT] Sara Alvarez RNrmalMagruder HospitalCoding Summaryon 48-84-6153Hkhazf SummaryCODING DATE: 05/10/2020 FINAL [facility] STATUS: Home PAYOR: Medicare MC APC [...] By: Eugenie George Date Saved: 05/10/2020 01:27 [facility] HospitalBilling Authorizationson 52-08-5293Gpmiuqo Authorizations [id number]#1.00[facility] Medication Managementon 04-65-6138Jqynyefbav Management [id number]#1.00[facility] Coding Summaryon 39-33-6236Lliyrw SummaryCODING DATE: 05/08/2020 [facility] STATUS: Home PAYOR: Medicare MC ADMIT DX: [...] By: Eugenie George Date Saved: 05/08/2020 01:38 [facility] HospitalProgress Note - Nurseon 93-63-8276Lgstclve Note - NursePAT review done per Dr. Willie villarreal Cardiac workup, no orders received. [Electronically Signed on: 05/02/2020 07:05 EDT] Warga, Francesca RN [Verified on: 05/02/2020 07:05 EDT] Francesca Pastrana RNMarymount HospitalProgress Note - NurseDr. Burgos reviews PAT information and testing results. Request copy of the stress test and last ca rdiology office notes. Call made to [facility], spoke with [facility]. Requested above information. Release of information faxed for records request. [Electronically Signed on: 05/01/2020 09:47 EDT] Maritza Teresa RN [Verified on: 05/01/2020 09:47 EDT] Maritza Teresa RNMarymount HospitalC MRSA Screenon 04-28-2020C MRSA ScreenNegativeClermont County Hospital HospitalComment on above:Performed By: #### [id number] #### [facility] (DEFAULT) [address] [place] [address] 78040Jjjinxau Orderson 90-44-8733Gdbdpdgp Orders [id number]#1.00OTGTIFFMarymount Hospital.Auto Diff 1on 27-33-7867Qahr Edgar %9 %Normal1-12[facility] HospitalComment on above: Performed By: #### [id number], [id number], [id number] #### [facility] (DEFAULT) [address] [place] [address] 20441Nhdc Abs#0.0 w65Dnmwme6.0-0.2Magrregency hospital toledo HospitalComment on above:Performed By: #### [id number], [id number], [id number] #### [facility] (DEFAULT) [address] [place] [address] 37984Eblibhctd/100 WBC (Bld)0.4 %Normal0.2-2.0Masouthwest [facility] center Hospital Comment on above:Performed By: #### [id number], [id number], [id number] #### [facility] (DEFAULT) [address] [place] [address] 00512Kxy Abs#0.1 o36Fnffsv7.0-0.4Masouthwest general health center HospitalComment on above:Performed By: #### [id number], [id number], [id number] #### [facility] (DEFAULT) [address] [place] [address] 52729Felzqzlaimc/100 WBC (Bld)1.7 %Normal0.9-4.0Masouthwest general health center HospitalComment on above:Performed By: #### [id number], [id number], [id number] #### [facility] (DEFAULT) [address] [place] [address] 83842Ijqakznrzwk (Bld) [#/Vol]1.6 w10Kagxau6.3-2.9Magrregency hospital toledo HospitalComment on above:Performed By: #### [id number], [id number], [id number] #### [facility] (DEFAULT) [address] [place] [address] 91631Olbuzrsgiyn/100 WBC (Bld)20 %Zqpocm78-63Kjggcqvl Hospital Comment on above:Performed By: #### [id number], [id number], [id number] #### [facility] (DEFAULT) [address] [place] [address] 06553Wmbd Abs#0.7 x29Weiyjd9.0-0.8Masouthwest general health center HospitalComment on above:Performed By: #### [id number], [id number], [id number] #### [facility] (DEFAULT) [address] [place] [address] 75572Zgzx Abs#5.2 e96Icdshh7.5-9.2Magruder HospitalComment on above:Performed By: #### [id number], [id number], [id number] #### [facility] (DEFAULT) [address] [place] [address] 94521Neavmjpqpyn/100 WBC (Bld)69 %Dukhro33-38Ljmynzie Hospital Comment on above:Performed By: #### [id number], 60409117, [id number] #### [facility] (DEFAULT) [address] [place] [address] 23953QXK Standardon 55-52-9010rYSN Non AA>60[facility] Comment on above:Performed By: #### [id number], [id number], [id number] #### [facility] (DEFAULT) [address] [place] [address] 57377kSDU AA>60[facility] HospitalComment on above:Result Comment: Chronic Kidney disease could be indicated at eGFRs of less than 60 ml/min/1.73m2. Kidney Failure is indicated at less than 15 ml/min/1.73m2 Performed By: #### [id number], [id number], [id number] #### [facility] (DEFAULT) [address] [place] [address] 20209Avufn gap [Moles/Vol]12.0 mmol/LNormal5.0-19.0[facility] HospitalComment on above:Performed By: #### [id number], [id number], [id number] #### [facility] (DEFAULT) [address] [place] [address] 79177Ieciwzn [Mass/Vol]9.7 mg/dLNormal8.9-10.3MMercy Health [facility] Comment on above:Performed By: #### 1390393, [id number], [id number] #### [facility] (DEFAULT) [address] [place] [address] 38798Vgaxpqon [Moles/Vol]106 mmol/QVrqsay137-263Nwjovkjr HospitalComment on above:Performed By: #### [id number], [id number], [id number] #### [facility] (DEFAULT) [address] [place] [address] 07061BO3 [Moles/Vol]23 mmol/DHpielq49-95Vlzscmho Hospital Comment on above:Performed By: #### [id number], [id number], [id number] #### [facility] (DEFAULT) [address] [place] [address] 94054Twntwnpypm [Mass/Vol]0.72 mg/dLLow0.90-1.30Masouthwest general health center HospitalComment on above:Performed By: #### [id number], 69596892, [id number] #### [facility] (DEFAULT) [address] [place] [address] 38045Yfbfpzi [Mass/Vol]85.0 mg/vYScneix31.0-118.0[facility] HospitalComment on above:Performed By: #### [id number], 73060394, [id number] #### [facility] (DEFAULT) [address] [place] [address] 44862Ucmtendphf [Osmolality]274 mOsm/LMohiohealth riverside [facility]ist hospital HospitalComment on above:Performed By: #### 5902049, 35070812, [id number] #### [facility] (DEFAULT) [address] [place] [address] 23329Lupsgjjso [Moles/Vol]4.4 mmol/LNormal3.6-5.1Mohiohealth [facility] hospital HospitalComment on above:Performed By: #### 3724596, 44220093, [id number] #### [facility] (DEFAULT) [address] [place] [address] 40029Hnvyzw [Moles/Vol]137.0 mmol/LXqboce846.0-144.0[facility] HospitalComment on above:Performed By: #### 7688885, 64082783, [id number] #### [facility] (DEFAULT) [address] [place] [address] 70809Lbwp nitrogen [Mass/Vol]16 mg/dLNormal8-26[facility] HospitalComment on above:Performed By: #### 6144893, 86606108, [id number] #### [facility] (DEFAULT) [address] [place] [address] 57200Lzmn nitrogen/Creatinine [Mass ratio]22.0 mg/mgHigh 4.6-16.2Moh[facility] HospitalComment on above:Performed By: #### 6265838, 39413101, [id number] #### [facility] (DEFAULT) [address] [place] [address] 45169AQD w/ Auto Diffon 11-58-3001Spgyysucwfs distribution width (RBC) [Ratio]12.2 %Vazsmv68.5-15.0[facility] HospitalComment on above: Performed By: #### [id number], 41267997, [id number] #### [facility] (DEFAULT) [address] [place] [address] 86066Svnphnujyp (Bld) [Volume fraction]38.9 %Zcwqcx42.8-51.9 [facility] HospitalComment on above:Performed By: #### 8593472, 23142087, [id number] #### [facility] (DEFAULT) [address] [place], [place] [address]Hemoglobin (Bld) [Mass/Vol]13.5 g/eRRxvwqb74.8-17.7 [facility] HospitalComment on above:Performed By: #### 9491305, 43411750, [id number] #### [facility] (DEFAULT) [address] [place] [address] 62710Wiz Diff?AutoNormalMercy Health Defiance HospitalComment on above: Performed By: #### [id number], 91376721, [id number] #### [facility] (DEFAULT) [address] [place] [address] 55587OUK (RBC) [Entitic mass]32 gcXjfnlw47-74Xciyuvng Hospital Comment on above:Performed By: #### [id number], 92370851, [id number] #### [facility] (DEFAULT) [address] [place] [address] 48801NUXJ (RBC) [Mass/Vol]35 g/iUBefaaq01-10Yisjhkud Hospital Comment on above:Performed By: #### 3910963, [id number], [id number] #### [facility] (DEFAULT) [address] [place] [address] 01703RUE (RBC) [Entitic vol]91 rRJygwgp20-839Rzevyrno Hospital Comment on above:Performed By: #### 4249970, 44216212, [id number] #### [facility] (DEFAULT) [address] [place] [address] 17771Nlsiszmr mean volume (Bld) [Entitic vol]9.3 fLNormal 6.3-10.2MMercy Health St. Joseph Warren HospitalComment on above:Performed By: #### 5467374, 43507512, [id number] #### [facility] (DEFAULT) [address] [place] [address] 39547Phfcvdknw (Bld) [#/Vol]220 f64Tlnabl232-668Veplawfd HospitalComment on above:Performed By: #### 1324083, 26234290, [id number] #### [facility] (DEFAULT) [address] [place] [address] 98653LDM (Bld) [#/Vol]4.26 x37Bkexid5.70-5.30[facility] Comment on above:Performed By: #### [id number], 50011551, [id number] #### [facility] (DEFAULT) [address] [place] [address] 08162JIH (Bld) [#/Vol]7.6 e34Ibewzw4.5-10.5[facility] Comment on above:Performed By: #### [id number], 84845901, [id number] #### [facility] (DEFAULT) [address] [place] [address] 77267Gekfxygi Orderson 92-71-1215Rxyggjsh Orders [id number] Shriners HospitalUA w Culture if Ind Standardon 82-16-9656Rehtfmthwx UAMarymount Hospital Comment on above:Performed By: #### [id number] #### [facility] (DEFAULT) [address] [place] [address] 02086Gibgd (U)YellowNormalMagruder HospitalComment on above: Performed By: #### [id number] #### [facility] (DEFAULT) [address] [place] [address] 66137Fsrkcoh?NoNormalMagruder HospitalComment on above: Performed By: #### [id number] #### [facility] (DEFAULT) [address] [place] [address] 36188Rsbgslz (U) [Mass/Vol]NegativeNormalMagruder Hospital Comment on above:Performed By: #### [id number] #### [facility] (DEFAULT) [address] [place] [address] 28844Xpjaflb Ql (U)NegativeNormalMagruder HospitalComment on above:Performed By: #### [id number] #### [facility] (DEFAULT) [address] [place] [address] 11232Tqtsq?Not IndicatedNormalMagruder HospitalComment on above:Performed By: #### [id number] #### [facility] (DEFAULT) [address] [place] [address] 79434IP BilirubinNegativeNormalMagruder HospitalComment on above:Performed By: #### [id number] #### [facility] (DEFAULT) [address] [place] [address] 23764GR BloodNegativeNormalNEGATIVEMagruder HospitalComment on above:Performed By: #### [id number] #### [facility] (DEFAULT) [address] [place] [address] 19282YB ClarityCLEARNormalCLEARMagruder HospitalComment on above:Performed By: #### [id number] #### [facility] (DEFAULT) [address] [place] [address] 81529NK Leuk EstNegativeNormalNEGATIVEMagruder HospitalComment on above:Performed By: #### [id number] #### [facility] (DEFAULT) [address] [place] [address] 15617RP NitriteNegativeNormalNEGATIVEMagruder HospitalComment on above:Performed By: #### [id number] #### [facility] (DEFAULT) [address] [place], [place] [address]UA pH6.6Fhundh5-7Vrfsijct HospitalComment on above: Performed By: #### [id number] #### [facility] (DEFAULT) [address] [place] [address] 99838JX ProteinNegativeNormalNEGATIVEKnox Community Hospital HospitalComment on above:Performed By: #### [id number] #### [facility] (DEFAULT) [address] [place], [place] [address]UA Spec Grav<=1.516Jkyeir0.001-1.035[facility] Comment on above:Performed By: #### [id number] #### [facility] (DEFAULT) [address] [place], [place] [address]UA Urobilinogen0.2 mg/dLNormal0.2-1.0[facility] Comment on above:Performed By: #### [id number] #### [facility] (DEFAULT) [address] [place], [place] [address]Urine SourceClean CatchNormalMercy Health Defiance HospitalComment on above:Performed By: #### [id number] #### [facility] (DEFAULT) [address] [place] [address] Vital Signs Date TimeVital SignValuePerforming JvshnmzdhCrxozotp37-48-3724 13:41-0400Blood Pressure LocationMichael NILL [facility] Rqlufjdk39-11-7673 13:41-0400Diastolic blood kjaxutkf89 mm[Hg]Haroon NILL [facility] Tvdlbixm27-45-4424 13:41-0400Heart rate 76 /minMichael NILL [facility] Dqngoyir63-96-6431 13:41-0400 Respiratory rate16 /minMichael NILL [facility] Yfntyzrz81-67-5185 13:41-0400Systolic blood dhaxqdpn144 mm[Hg]Haroon NILL General Surgery Aime Encounters Encounter DateEncounter TypeCare ProviderFacilityStart: 10-18-2024 End: 92-59-5322hklxydognyLABIFP [facility] Start: 03-02-2024 End: 91-02-6018tdfyylpctnFrhckpe R NILLFacility:[facility]: [facility]-02-2024 End: 09-87-2382Okjaabx encounter procedureMichael R NILL [phone]-Hboku General Surgery Aime Start: 03-02-2024 End: 75-23-8822oezsikpuwcUmegxhf R NillFacility:[facility] Hospitaltart: 02-18-2024 End: 08-89-5598rnwszfuurjXqjepnc R NILLFacility:[facility]ueStart: 02-18-2024 End: 09-30-8278Yntmeqz encounter procedureMichael R NILL General Surgery Nill/Said [place] Start: 03-19-2023 End: 91-69-5021juftrozzevTZ DAKSHA OREILLY .Facility:F6Eormt: 03-18-2023 End: 01-39-3922gwzuetxforGT DAKSHA HOY .Facility:P1Sdbbl: 03-18-2023 End: 79-27-2466pkrwxvqtldBTAZQDV TUSHANNAERFacility:U1Abjel: 08-16-2022 End: 05-28-2501eqplrafuhaAV BRYCE MOUKARBELFacility:D3Rtmim: 06-29-2022 ambulatoryDR BRYCE MOUKARBELFacility:H1 Procedures DateProcedureProcedure DetailPerforming ClinicianStart: [id number] screening AMBERMARTA Deleonment on above:Performed By: #### CMP, CK, LIPID #### [facility] [address] [place] [address] Dr. Tyrell CasillasStart: 38-10-5647Izcyvy of joint of right hipMichael NILL Start: 28-58-5799Esjmiaht artery bypass grafts x 4 Haroon NILL Start: 99-70-0216Hvsslh of joint of left hipMichael NILL Arthroscopy of kneeMichael NILL ColonoscopyMichael NILL Insertion of inferior vena caval filterMichael NILL LaminectomyMichael NILL Lysis of adhesionsMichael NILL Repair of recurrent incisional herniaMichael NILL Repair of ventral herniaMichael NILL Comment on above:x 3 Immunizations Immunization DateImmunizationNotesCare YqxgbhqlYytraosh15-13-8615sgnsxttdi virus vaccine, unspecified formulationMichael NILL General Surgery [id number]-SdS-5 (COVID-19) mRNA BNT-162b2 vaxMichael NILL General Surgery Vkwztesi80-49-8537VEAV-TdL-8 (COVID-19) mRNA BNT-162b2 vaxMichael NILL General Surgery Aime Payers DatePayer CategoryPayerPolicy [id number] 2.16.840.1.952991.3.57[id number] 2.16.840.1.242147.3.57[id number] 2.16.840.1.043522.3.57[id number] 2.16.840.1.612596.3.57[id number] 2.16.840.1.466937.3.57[id number] 2..0.1.208798.3.57[id number] 2..0.1.05257[id number] 2.0.1.691673.3.579.2.531 Social History DateTypeDetailFacilityStart: 84-66-3929Szfgnab smoking statusNever smoked tobacco (finding)General Surgery [place]iaTobacco smoking statusNeverGeneral Surgery BellueSex [facility] Functional Status JdjxVimmyqgavhPovxsrZvnqoryq63-69-4027Ckhyfikuia StatusN/AGeneral Surgery [place] Progress note 10-18-2024 Note Date & OdllTbqpXqqikrrs86-53-2487 NoteUT Cardiology - [facility] Subjective Gretchen Delatorre is a [...] Visual field defect Coronary artery disease involving coushatta coronary artery of coushatta heart without angina pectoris History of coronary [...] PMH- CAD s/p CABG, HTN, HPL, Cardiomyopathy, [place] in 1996 PSH- CABG x4 2005, Rt [...] by oral route., Di (more content not included)...[facility] Clinical Note 02-18-2024 Note Date & HpneBtuxRvczyttv53-71-0793 NoteChief Complaint consultation for skin lesion HPI Staff 73 year old male presents on consultation from Dr. Oreilly for right chest wall mass. Reports mass has been present for several years. Reports gradual increase in size. Denies soreness or tenderness. Denies bleeding or drainage. History of Present Illness 73 yo male with h/o CAD, OH, htn, hyperlipidemia, CVA, degenerative disc disease, lumbar, [...] Recorded SARS-CoV-2 (COVID-19) mRNA BNT-162b2 vax 02/06/2021 RecordedChildren[facility] Hospital For RehabilitationComment on above:Result Comment: Electronically Signed By: AUDI JAIME, Haroon Ellison\.br\Date and Time Signed: 02/18/24 15:21 EDT Evaluation + Plan note Note Date & TypeNoteFacilityEvaluation + Plan note Future Appointments Appointment Date:03/02/2024 03:00:00 PM Scheduled Provider:Haroon DON MD Location:[facility] ([facility] Appointment Type: Procedure 30 General Surgery [facility] Hospital course Narrative Note Date & TypeNoteFacilityHospital course Narrative No data available for this section [facility] [place] [facility] Discharge instructions Note Date & TypeNoteFacilityHospital Discharge instructions No data available for this section General Surgery [place] Progress note Note Date & TypeNoteFacilityProgress note [...] Advanced Directives Records Found Hospital Course Note [facility] Clinical Discharge Summary PERSON INFORMATION Name GRETCHEN DELATORRE Age 69 Years 1950 Sex MALE Language Mongolian PCP DAKSHA OREILLY Marital Status Med Service Observation Acct# Arrival 05/15/2020 06:07:00 Visit Reason RIGHT TOTAL HIP Acuity LOS Address: [address] [place] [address] [address] [facility] [address] Comment: PROVIDER INFORMATION VITALS INFORMATION Vital Sign [...] section and content) DATE CREATED AUTHOR 07/26/2020 [facility] DATE CREATED AUTHOR AUTHOR'S ORGANIZ ATION 03/20/2023 [facility] DATE CREATED AUTHOR AUTHOR'S ORGANIZ ATION 03/05/2024 [facility] DATE CREATED AUTHOR AUTHOR'S ORGANIZ ATION 03/06/2024 [facility] DATE CREATED AUTHOR AUTHOR'S ORGANIZ ATION 04/09/2025 [facility] Patient Care team informatio n (unrecognized section and content) Personnel Name: Daksha Oreilly MD Address: Address: [address] [place] [address] Personnel Name: Daksha Oreilly MD Address: Address: [address] [place] [address] FOR RECORDS PERTAINING TO PATIENTS WHO ARE [...] BE BASED ON THE PRIMARY CLINICAL RECORDS. [employer] provides no warranty or guarantee of the accuracy or completeness of information in this document.
[2025-09-07 11:21] LABS: Hematocrit 26.3 % (42.0-54.0); Hemoglobin 8.4 g/dL (14.0-18.0); Immature Granulocytes Abs Auto 0.02 10^3/uL (0.00-0.03); Immature Granulocytes Pct Auto 0.4 % (0.0-0.5); Lymphocytes Absolute Auto 0.9 10^3/uL (1.2-3.8); Mean Corpuscular HGB Conc 31.9 g/dL (29.9-35.2); Mean Corpuscular Hemoglobin 35.9 pg (25.9-34.0); Mean Corpuscular Volume 112.4 fL (80.0-94.0); Platelet Count 120 10^3/uL (150-450); Red Blood Count 2.34 10^6/uL (4.70-6.10); White Blood Count 5.4 10^3/uL (4.0-11.0)
[2025-09-07 11:27] LABS: Alanine Aminotransferase 113 U/L (16-63); Albumin Globulin Ratio 0.4; Albumin Level 3.1 g/dL (3.4-5.0); Alkaline Phosphatase 57 U/L (46-116); Anion Gap 10.8; Aspartate Amino Transferase 85 U/L (15-37); Blood Urea Nitrogen 15.0 mg/dL (7.0-18.0); Calcium 8.6 mg/dL (8.5-10.1); Carbon Dioxide 24.1 mmol/L (21.0-32.0); Chloride 104 mmol/L (98-107); Estimated GFR (African America >60 (>=60 mL/min/1.73m^2); Estimated GFR (Non-African Ame >60 (>=60 mL/min/1.73m^2); Globulin 8.4 g/dL; Glucose 127 mg/dL (74-106); Potassium 3.9 mmol/L (3.5-5.1); Sodium 135 mmol/L (136-145); Total Protein 11.5 g/dL (6.4-8.2)
[2025-09-07 11:37] LABS: NT Pro B Type Natriuretic Pept 2558.0 pg/mL (<=900.0)
== END 2025-09-07 11:01 | disposition home or self-care (01) ==
LOC: CARD 11:01
PROVIDERS: PCP Family Medicine; Visit Provider Family Medicine
DX: R06.02 Shortness of breath (principal); R77.8 Other specified abnormalities of plasma proteins; E78.5 Hyperlipidemia, unspecified; I10 Essential (primary) hypertension; R60.9 Edema, unspecified; D64.9 Anemia, unspecified; N17.9 Acute kidney failure, unspecified
CPT/HCPCS: 36415; 80053; 83880; 84484; 85025; 93306; 93356

== ENCOUNTER 2025-09-08 12:46 | Outpatient (OUT) | payer MEDICARE, SELFPAY ==
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
--- OUTSIDE RECORDS SUMMARY | 2025-09-08 12:54 | XMS_ITS | Clinical Summary ---
Author Organization tocario tem Address [id number] [place] [address] Care Team Providers Care Engraving Supervisor Name Role Phone Vik Oreilly MD Primary Care Provider [phone] Allergies No known active allergies Medications MedicationSigDispense QuantityRefillsLast FilledStart DateEnd DateStatus oxyCODONE-acetaminophen (PERCOCET) 5-325 mg per tablet Take 1 tablet by mouth every 4 (four) hours as needed for pain.Active magnesium 30 mg tablet Take 30 mg by mouth 2 (two) times a day.Active tuxvvevm-hlzf-UA-calcium &mins (THERAGRAN-M) 9 mg iron-400 mcg tablet [...] times a week05/25/2020How often do you attend jainism or worship services?Never05/25/2020Do you belong to any clubs or organizations such as jainism groups, unions, fraternal or athletic groups, or [...] and heating?Not hard at all 05/25/2020PHQ-2AnswerDate RecordedTotal Gspdv385Finmckay-[facility] [place] of Occupational Health - Occupational Stress QuestionnaireAnswerDate [...] from medical appointments or from getting medications?Patient yepeuxbc45/23/2020In the past 12 months, has lack of transportation kept you from meetings, work, or from getting things needed for daily living?Patient gaqhudvz99/23/2020ChildcareAnswerDate RecordedDo problems getting child & adolescent psychiatrist make it difficult for you to work or study?No05/25/2020 EmploymentAnswerDate RecordedDo you need help finding a local career center and/or a training program?No05/25/2020Purpose - LifeAnswerDate RecordedPurpose and direction in yqkgQvneclg06/11/2021ex and Gender InformationValueDate RecordedSex Assigned at BirthNot on fileLegal GpnFvon1306/08/2015 11:26 AM EDT Gender IdentityNot on fileSexual OrientationNot on file Last Filed Vital Signs Vital SignReadingTime TakenCommentsBlood Abtdwlnb704/7409 1:13 PM EDT Ombmq9573 1:13 PM CKWFlbijnqtfms65.9 ??C (98.4 ??F)07/06/2020 1:13 PM EDTRespiratory Clvd476607/06/2020 1:13 PM EDTOxygen Ichifoomjw42%06/15/2020 1:00 PM EDTInhaled Oxygen Concentration--Egkaxj04.7 kg (193 lb 6 oz)07/06/2020 1:13 PM MWI755 lbs 6 xgQubupx373.2 cm (5' 7.01 )06/14/2020 1:12 PM EDTBody Mass Index 30.28006/14/2020 1:12 PM EDT Plan of Treatment Health MaintenanceDue DateLast DoneCommentsDepression Iotiirrew94/02/1965Tobacco Qwmjjsvxu00/02/1965Adult BMI Bxbiccbij03/02/1971DTaP,Tdap and Td Vaccines (1 - Tdap)1971Zoster (Shingles) Vaccine (1 of 2)2002Fall Risk Screening 2017Influenza Cpfcmwd8607/04/2025RSV ( or age 60+ yrs) (1 - [...]
--- OUTSIDE RECORDS SUMMARY | 2025-09-08 12:55 | XMS_ITS | Encounter Summary ---
Author Organization [facility] Address [address] [address] Care Team Providers Care Concrete Tile Machine Operator Name Role Phone Vik Oreilly MD Primary Care Provider [phone] Encounter Details DateTypeDepartmentCare Team (Latest Contact Info)Wipnqwibtut94/06/2025Orders Only [facility] Heart at [facility] [address] [place] [address] Cami Benson MA Encounter for pre-operative examination (Primary Dx); Congestive heart failure, unspecified HF chronicity, unspecified heart failure type (CMS/HCC) Social History Tobacco UseTypesPacks/DayYears UsedDateSmoking Tobacco: FormerCigarettes Smokeless Tobacco: NeverAlcohol UseStandard Drinks/WeekCommentsYes0 (1 standard drink = 0.6 oz pure alcohol)MODERATEUT Safety & EnvironmentAnswerDate Recorded Fear of Current or Ex-PartnerNot on file12/25/2023Emotionally AbusedNot on file 4Physically AbusedNot on file12/25/2023Sexually AbusedNot on file 4Physically or Sexually AbusedNot on file12/25/2023Sex and Gender InformationValueDate RecordedSex Assigned at ByyfrFhib14/06/2025 11:41 AM EST Legal QcuGmdg2205/01/2022 9:50 PM EDTGender CmowfgvbKnrw98/06/2025 11:41 AM EST Sexual OrientationHeterosexual or Eidtjqsm33/06/2025 11:41 AM ESTdocumented as of this encounter Functional Status * BPAnswerDate of BasjgzocspAsoomy117/7509/08/2025 11:51 AM Mary Parr MA * PulseAnswerDate of EinbdovqrmGgzmrj9508 11:51 AM Mary Parr MA * Audit Alcohol ScreeningQuestionAnswerDate of AssessmentAuthoow often do you have a drink containing alcohol? 11:54 AM Mary Parr MAHow many standard drinks containing alcohol do you have on a typical day?0 09/08/2025 11:54 AM Mary Parr MA * Patient PositionAnswerDate of TtyfsyumilJgavzbYwhjeeu16/06/2025 11:51 AM Mary Bear MA * BPAnswerDate of FdexmptfdmWqejkk004/7509/08/2025 11:51 AM Mary Parr MA * PulseAnswerDate of NremjhilgqXyqfhv9615/06/2025 11:51 AM Mary Parr MA * IpQ1NfuibfHdmk of DbnliiigcjKrdood2006/06/2025 11:51 AM Mary Parr MA * BP LocationAnswerDate of AssessmentAuthorRmary [facility]09/08/2025 11:51 AM Mary Bear MA * Audit Alcohol ScreeningQuestionAnswerDate of AssessmentLawrence General Hospital often do you have a drink containing alcohol? 11:54 AM Mary Parr MAHow many standard drinks containing alcohol do you have on a typical day?0 09/08/2025 11:54 AM Mary Parr MA * Patient PositionAnswerDate of JldeajpjinMhhrnpMyrollw11/06/2025 11:51 AM Mary Bear MA documented as of this encounter Plan of Treatment NameTypePriorityAssociated DiagnosesOrder ScheduleCBC and differentialLabRoutine Encounter for pre-operative examination Expected: 09/08/2025 (Approximate), Expires: 09/08/2026asic metabolic panelLab Routine Encounter for pre-operative examination Expected: 09/08/2025 (Approximate), Expires: 09/08/2026NamePriorityAssociated DiagnosesDate/TimeCORONARY ANGIOGRAPHY Systolic heart failure, unspecified HF chronicity (CMS/HCC) Elevated troponin RIGHT HEART CATH Systolic heart failure, unspecified HF chronicity (CMS/HCC) Elevated troponin documented as of this encounter Visit Diagnoses Diagnosis Encounter for pre-operative examination- Primary Congestive heart failure, unspecified HF chronicity, unspecified heart failure type (CMS/HCC) documented in this encounter Care Teams Team MemberRelationshipSpecialtyStart DateEnd Date Vik Oreilly MD [address] [phone] PCP - General07/10/22documented as of this encounter
--- OUTSIDE RECORDS SUMMARY | 2025-09-08 12:55 | XMS_ITS | Encounter Summary ---
Author Organization [facility] Address [address] [place] [address] Care Team Providers Care Oil Well Fishing Tool Technician Name Role Phone Vik Oreilly MD Primary Care Provider Encounter Details DateTypeDepartmentCare Team (Latest Contact Info)Praennkhdly63/06/2025Orders Only [facility] at [facility] [address] [place] [address] Cami Benson MA Congestive heart failure, unspecified HF chronicity, unspecified heart failure type (CMS/HCC) (Primary Dx) Social History Tobacco UseTypesPacks/DayYears UsedDateSmoking Tobacco: FormerCigarettes Smokeless Tobacco: NeverAlcohol UseStandard Drinks/WeekCommentsYes0 (1 standard drink = 0.6 oz pure alcohol)MODERATEUT Safety & EnvironmentAnswerDate Recorded Fear of Current or Ex-PartnerNot on file12/25/2023Emotionally AbusedNot on file 12/25/2023hysically AbusedNot on file12/25/2023Sexually AbusedNot on file 4Physically or Sexually AbusedNot on file12/25/2023Sex and Gender InformationValueDate RecordedSex Assigned at DotsvBbyz39/06/2025 11:41 AM EST Legal NcnMtjl7305/01/2022 9:50 PM EDTGender DbjiadkoUrpk99/06/2025 11:41 AM EST Sexual OrientationHeterosexual or Tdbozgtr17/06/2025 11:41 AM ESTdocumented as of this encounter Functional Status * BPAnswerDate of ZxlowywbkkNaydly639/7509/08/2025 11:51 AM Mary Parr MA * PulseAnswerDate of TwmvdrohxgKrlneo6781 11:51 AM Mary Parr MA * Audit Alcohol ScreeningQuestionAnswerDate of AssessmentAuthoow often do you have a drink containing alcohol? 11:54 AM Mary Parr MAHow many standard drinks containing alcohol do you have on a typical day?0 09/08/2025 11:54 AM Mary Parr MA * Patient PositionAnswerDate of CotydlkompClboehOxymeni20/06/2025 11:51 AM Mary Bear MA * BPAnswerDate of DxzqusazeeVeotoc485/7509/08/2025 11:51 AM Mary Parr MA * PulseAnswerDate of PppxhgrmwqIwgrut1300/06/2025 11:51 AM Mary Parr MA * XxO1JnvytvXumx of WyhasswsfmKwwlvg6665/06/2025 11:51 AM Mary Parr MA * BP LocationAnswerDate of AssessmentAuthorRascension macomb09/08/2025 11:51 AM Mary Bear MA * Audit Alcohol ScreeningQuestionAnswerDate of AssessmentAutSouthPointe Hospitalow often do you have a drink containing alcohol? 11:54 AM Mary Parr MAHow many standard drinks containing alcohol do you have on a typical day?0 09/08/2025 11:54 AM Mary Parr MA * Patient PositionAnswerDate of DualagcuglOandztAxfmqwq46/06/2025 11:51 AM Mary Bear MA documented as of this encounter Plan of Treatment NamePriorityAssociated DiagnosesDate/TimeCORONARY ANGIOGRAPHY Systolic heart failure, unspecified HF chronicity (CMS/HCC) Elevated troponin RIGHT HEART CATH Systolic heart failure, unspecified HF chronicity (CMS/HCC) Elevated troponin documented as of this encounter Visit Diagnoses Diagnosis Congestive heart failure, unspecified HF chronicity, unspecified heart failure type (CMS/HCC)- Primary documented in this encounter Care Teams Team MemberRelationshipSpecialtyStart DateEnd Date Vik Oreilly MD [address] [address] [facility] - General07/10/22documented as of this encounter
--- OUTSIDE RECORDS SUMMARY | 2025-09-08 12:55 | XMS_ITS | Clinical Summary ---
Author Organization [facility] Address [address] [place] [address] Care Team Providers Care Marketing Operations Consultant Name Role Phone Vik Oreilly MD Primary Care Provider [phone] Allergies Active AllergyReactionsCriticalityNoted DateCommentsStatinsUnknownMedium 05/16/2023 Medications MedicationSigDispense [...] ComplexActive beta carotene (vitamin A) 7.5 MG (80313 UT) capsule Vitamin AActive rosuvastatin (Crestor) 10 [...] aortic aneurysm (AAA) without rupture 05/15/2023oronary artery svgonvp9505/15/2023History of total hip replacement 05/15/2023Other sequelae of cerebral mmtjrzyqmr25/13/2023rimary osteoarthritis of right hip05/15/2023 Immunizations ImmunizationAdministration DatesNext DueInfluenza, trivalent, adjuvanted 09/02/2019 Social History Tobacco UseTypesPacks/DayYears UsedDateSmoking Tobacco: NeverSmokeless Tobacco: Never Tobacco Cessation:Counseling Given: Not Answered Alcohol UseStandard Drinks/WeekCommentsYes1 (1 standard drink = 0.6 oz pure alcohol)Sex and Gender InformationValueDate RecordedSex [facility]/09/20[facility] 11:31 AM EDTLegal GnfBnnu1901/15/2023 10:09 PM EDTGender IdentityMale 05/09/2023 11:31 AM EDTSexual OrientationNot on file Last Filed Vital Signs Vital SignReadingTime TakenCommentsBlood Pressure--Pulse--Temperature-- Respiratory Rate--Oxygen Saturation--Inhaled Oxygen Concentration--Iqtvzx17.2 kg (190 lb)05/16/2023 11:22 AM CXUYedlgm128.6 cm (5' 6 )05/16/2023 11:22 AM EDTBody Mass Index30.67005/16/2023 11:22 AM EDT Plan of Treatment Not on file Insurance Care Teams Team MemberRelationshipSpecialtyStart DateEnd Date Vik Oreilly MD PCP - GeneralFagaly Medicine05/14/23
--- OUTSIDE RECORDS SUMMARY | 2025-09-08 12:55 | XMS_ITS | Clinical Summary ---
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ctive gemfibrozil 600 mg tablet Take 1 tablet by mouth twice daily before meals.ctive cycloSPORINE (RESTASIS) 0.05 % ophthalmic emulsion 1 Drop twice daily.ctive colesevelam (WELCHOL) 625 mg tablet Take 3 tablets by mouth twice daily with meals.ctive Cod Liver Oil Oil Take by mouth once daily.Active MULTIVITAMIN (CENTRAL NORM ORAL) Take by mouth once daily.Active GLUCOSAMINE HCL/CHONDR BYERS A NA (OSTEO BI-FLEX ORAL) Take by mouth once daily.Active ascorbic acid (VITAMIN C) 500 mg tablet Take 500 mg by mouth once daily.Active Ubidecarenone-[place] 3-Vit E (COQ-10 & FISH OIL) 50-300-30 mg-mg-unit cap Take by mouth once daily.Active VITAMIN B COMPLEX & VIT C NO.4 (SUPER B COMPLEX + C ORAL) Take by mouth once daily.Active niacin 500 mg tablet Take 500 mg by mouth daily with breakfast.Active Lysine (L-LYSINE) 500 mg cap Take by mouth once daily.Active chromium picolinate 1,000 mcg Tab Take by mouth once daily.Active rosuvastatin (CRESTOR) 5 mg tablet Take 5 mg by mouth once daily.Active Active Problems ProblemNoted DateDiagnosed DateMGUS (monoclonal gammopathy of unknown significance)06/28/2013 Resolved Problems ProblemNoted DateDiagnosed DateResolved FvybQolkqyqyqtlzmsozgcaelg92/17/2013 03/25/2013 Immunizations ImmunizationAdministration DatesNext Duepneumococcal polysaccharide (PPV23) vaccine, 23 valent (PNEUMOVAX 23)07/14/2006 Social History Tobacco UseTypesPacks/DayYears UsedDateSmoking Tobacco: NeverSmokeless Tobacco: NeverAlcohol UseStandard Drinks/WeekCommentsYes0 (1 standard drink = 0.6 oz pure alcohol)6-7 per week last drink 07/12/13Sex and Gender InformationValueDate RecordedSex Assigned at BirthNot on fileLegal KzvRgig4002/10/2013 9:19 AM EDT Gender IdentityNot on fileSexual OrientationNot on file Last Filed Vital Signs Vital SignReadingTime TakenCommentsBlood Qohdjenw426/9608 10:58 AM EDT second attempt 145/95Zmgef0741/23/2016 10:58 AM LQGHfwqxysybzk85 ??C (98.6 ??F) 06/25/2016 10:58 AM EDTRespiratory Osxj4322 10:58 AM EDTOxygen Velqhxjnex69%07/18/2013 1:39 PM EDTInhaled Oxygen Concentration--Aoshju66.8 kg (193 lb 9.6 oz)06/25/2016 10:58 AM OPWDfjrpy275.6 cm (5' 5.98 )06/25/2016 10:58 AM EDTBody Mass Index31.26006/25/2016 10:58 AM EDT Plan of Treatment Health MaintenanceDue DateLast DoneCommentsAnxiety Hkklhiuzp09/02/1971Depression Idqqhtctn35/02/1971Hepatitis C Acboridrd17/02/1971DTaP,Tdap,Td Vaccine (1 - Tdap)1971Lipid Zdaqzsgli03/02/1988CT Kzvfvzlsirbm88/02/1998Cologuard (FIT-DNA)12/05/19974464Smlhadnddaa96/02/1998Colorectal Cancer Ebajglzsm46/02/1998 Fecal Occult Blood12/05/19976568Szminktdjjypt61/02/1998Shingrix Vaccine (1 of 2) 2002Pneumococcal Vaccine: 50+ (2 of 2 - PCV)Diabetes Nnvlgvuhe06, 06/05/2020, 05/27/2020, Additional history exists Advance Directive Blxtbggwjp84/01/2025ovid-19 Vaccine (1 - 2024- season) 2025Influenza Vaccine (#1)2025RSV Vaccine (1 - 1-dose 75+ series) 2027 Medical Devices ImplantedTypeAreaManufacturerDevice IdentifierShelf Expiration DateModel / Serial / LotMesh Srg Surgipro 14x9in Armando - [id number] Implanted:Qty: [facility]14/2013 [facility] [id number] / / Procedures Procedure NamePriorityDate/TimeAssociated DiagnosisCommentsCOMPREHENSIVE METABOLIC AITTSYorvdbn29/16/2016 11:04 AM EDT MGUS (monoclonal gammopathy of unknown significance) from Last 3 Months or Most Recently Relevant to Health Maintenance Results * (ABNORMAL) COMP METABOLIC PANEL (06/18/2016 11:04 AM EDT)ComponentValueRef RangeTest MethodAnalysis TimePerformed AtPathologist SignatureProtein, Total 7.46.0 - 8.4 g/dL06/18/2016 9:48 PM EDTCLEVEL[facility] LABORATORYAlbumin 4.83.5 - 5.0 g/dL06/18/2016 9:48 PM EDTCLEVEL[facility] LABORATORYCalcium 9.68.5 - 10.5 mg/dL06/18/2016 9:48 PM [facility]TCLEVEL[facility] Bilirubin, Total0.50.0 - 1.5 mg/dL06/18/2016 9:48 PM [facility] LABORATORYAlkaline Nmcjqbhjbzi0955 - 150 U/L06/18/2016 9:48 PM [facility] ADIJFZVCAZEOV068 - 40 U/L06/18/2016 9:48 PM [facility] LVWETXMXKOIzbdfzq832(H)65 - 100 mg/dL06/18/2016 9:48 PM [facility] JVYMNDDWYSBEY4713 - 25 mg/dL06/18/2016 9:48 PM [facility] LABORATORYCreatinine0.790.70 - 1.40 mg/dL06/18/2016 9:48 PM [facility] JROWLARYOFGoiloq681960 - 146 mmol/L06/18/2016 9:48 PM [facility] LABORATORYPotassium4.43.5 - 5.0 mmol/L06/18/2016 9:48 PM EDT [facility] SDHXJEIDIERajtehjh53735 - 110 mmol/L06/18/2016 9:48 PM [facility] LHYDBDCIBKOV259(L)23 - 32 mmol/L06/18/2016 9:48 PM [facility] LABORATORYAnion Gap16(H)0 - 15 mmol/L06/18/2016 9:48 PM [facility] KEDSSQZVBUONH904 - 50 U/L06/18/2016 9:48 PM EDT [facility] LABORATORYeGFR->6008 9:48 PM T [facility] LABORATORYeGFR-All Other Races>60.06/18/2016 9:48 PM T [facility] LABORATORYComment: eGFR (Estimated GFR) Units of measure: mL/min/1.73 [...] eGFR may not accurately reflect actual GFR. Specimen (Source)Anatomical Location / LateralityCollection Method / Volume Collection TimeReceived TimeBlood specimen (specimen)BLOOD SPECIMEN / Unknown 06/18/2016 11:04 AM EDT06/18/2016 8:29 PM EDT Narrative Authorizing ProviderResult TypeResult StatusAlfred P VargasLABORATORYFinal ResultPerforming OrganizationAddressCity/State/ZIP CodePhone Number [facility] [address] [place] [address] from Last 3 Months or Most Recently Relevant to Health Maintenance Care Teams Team MemberRelationshipSpecialtyStart DateEnd Date Vik Oreilly MD PCP - GeneralFamily Medicine02/10/13
--- OUTSIDE RECORDS SUMMARY | 2025-09-08 12:55 | XMS_ITS | Clinical Summary ---
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 90 tablet 309509/6Active isosorbide mononitrate ER (Imdur) 30 mg 24 hr tablet Take 30 mg by mouth in the morning.5Active Lasix 40 mg tablet Take 40 mg by mouth two times daily.5Active potassium chloride CR (Klor-Con M20) 20 mEq ER tablet Take 20 mEq by mouth in the morning. Do not crush or chew.Active spironolactone (Aldactone) 25 mg tablet Indications:Congestive heart failure, unspecified HF chronicity, unspecified heart failure type (CMS/HCC)Take 0.5 tablets (12.5 mg) by mouth in the morning. 45 tablet ctive Additional Information Patient not taking.Reported on 09/08/2025 metoprolol succinate XL (Toprol-XL) 25 mg 24 hr tablet Indications:Congestive heart failure, unspecified HF chronicity, unspecified heart failure type (CMS/HCC)Take 1 tablet (25 mg) by mouth in the morning. Do not crush or chew. STOP ATENOLOL 90 tablet ctive dapagliflozin propanediol (Farxiga) 10 mg Indications:Congestive heart failure, unspecified HF chronicity, unspecified heart failure type (CMS/HCC)Take 1 tablet (10 mg) by mouth in the morning. 90 tablet ctive atenolol (Tenormin) 50 mg tablet Take 1 tablet by mouth in the morning.09/08/2025Discontinued(Ineffective) Active Problems ProblemNoted DateDiagnosed DateAcute eyrbfzppkf16/06/1289Efmiua37/06/2025 Aphthous ulcer09/08/20257792Nznkhqjcpc31/06/2025ervical codjvfteeqxik75/06/2025 Closed fracture of multiple ribs of both sides09/08/2025losed fracture of caiacvk1409/08/2025losed fracture of shaft of ulna09/08/2025ontusion of lung without open wound into ghxyyi1509/08/2025Derangement of lateral meniscus 09/08/2025Eczema of hand09/08/20251490Ocpin54/06/1027Pyymsojcbglr86/06/2025H/O adverse drug jarsiqaw34/06/2025Heart hbcjhui3209/08/2025Hemorrhage of rectum and anus09/08/2025History of inferior vena caval filter jdzttsyht66/06/2025 Homonymous qkdsqgibqj57/06/6937Qqhejnaxbuumxo09/06/2025Impacted cerumen 09/08/2025Laceration of liver09/08/2025Low back pain09/08/2025Lumbosacral spondylosis without tdpuvwksge84/06/2025Macular jhwoup7109/08/2025Pneumothorax, /06/9672Tbdiosplcr69/06/2025Infectious bwocxwb2109/08/2025Prosthetic joint vdwbvjpid85/06/2025Retroperitoneal rlowlist92/06/7318Qkgilgpbf19/06/2025 BMI 33.0-33.9,adult10/18/2024Morbid dnsdrsg0810/18/2024Skin tag10/18/2024History of total hip yrjgxemimsl18rimary osteoarthritis of right hip Spinal stenosis of lumbar fiblxb3001/30/2023Sequelae of cerebral ctjnlqzify08/30/2023rimary localized osteoarthritis of pelvic region and thigh01/30/2023resence of right artificial hip joint01/30/2023 Lebarlwwyvkedh37/30/2023Occult blood in jswqui7301/30/2023ifficulty walking 01/30/2023egeneration of intervertebral disc of lumbar liooyd0001/30/2023 Cerebrovascular accident (CVA)3Abnormal gait01/30/2023bdominal aortic aneurysm without cjyhurs3401/30/20236867Ofxhufigbylj24/30/6611Aebderql48/30/2023 Coronary artery disease involving pechanga coronary artery of pechanga heart without angina glrmgicc19/17/2022History of coronary artery bypass graft08/19/2022 Essential qjrljqftjubn23/17/2022ellulitis of hip, right05/25/2020MGUS (monoclonal gammopathy of unknown significance)06/28/2013cute myocardial infarction of inferior wall05/19/20130127Ioranpefotpeaf50/17/2013Hyperlipidemia 05/19/2013Old myocardial /17/2013Visual field krhobk4605/19/2013 Encounters DateTypeDepartmentCare DevrRbhmucxqybo93/06/2025 11:40 AM ESTOffice Visit [facility] [place] [address] [place] [address] Ga Casas CNP Systolic heart failure, unspecified HF chronicity (CMS/HCC) (Primary Dx); 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; Hx of CABG; Elevated troponin; Benign hypertensive heart disease with heart failure (CMS/HCC); Acute anemia; Mixed hyperlipidemia; Bilateral lower extremity edema09/08/2025Orders Only [facility] [address] [place] [address] Cami Benson MA Congestive heart failure, unspecified HF chronicity, unspecified heart failure type (CMS/HCC) (Primary Dx)09/08/2025Orders Only [facility] [address] [place] [address] Cami Benson MA Encounter for pre-operative examination (Primary Dx); Congestive heart failure, unspecified HF chronicity, unspecified heart failure type (CMS/HCC)07/11/2025Refill [facility] [address] [place] [address] Mary Ureña MA Acute myocardial infarction of inferior wall (CMS/HCC)[facility] [address] [place] [address] Pako Palacios MD 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; Hyperlipemia, mixedfrom Last 3 Months Immunizations ImmunizationAdministration DatesNext DueInfluenza, injectable, quadrivalent, preservative free07/31/2016Influenza, seasonal, annngbvjgc40/05/2014Influenza, seasonal, injectable, preservative free, 6 moonths & older08/02/2015Influenza, trivalent, xigzcmcszw70/31/2019Pneumococcal Polysaccharide HCE210007/14/2006 Unspecified Sars-Cov-2 Dflyyztmijr70/27/2021,02/06/2021Zoster, live10/31/2016 Family History RelationNameStatusCommentsFatherAliveMotherDeceased Social History Tobacco UseTypesPacks/DayYears UsedDateSmoking Tobacco: FormerCigarettes Smokeless Tobacco: Never Tobacco Cessation:Counseling Given: Not Answered Alcohol UseStandard Drinks/WeekCommentsYes0 (1 standard drink = 0.6 oz pure alcohol)MODERATEUT Safety & EnvironmentAnswerDate RecordedFear of Current or Ex-PartnerNot on file12/25/2023Emotionally AbusedNot on file12/25/2023hysically AbusedNot on file12/25/2023Sexually AbusedNot on file12/25/2023hysically or Sexually AbusedNot on file12/25/2023Sex and Gender InformationValueDate Recorded Sex Assigned at GqumfXnhd54/06/2025 11:41 AM ESTLegal KleZaki9705/01/2022 9:50 PM EDTGender KadwxtteSbfm60/06/2025 11:41 AM ESTSexual OrientationHeterosexual or Uvuorjne33/06/2025 11:41 AM EST Last Filed Vital Signs Vital SignReadingTime TakenCommentsBlood Mofqfijp321/7509/08/2025 11:51 AM EST Vnxnb411709/08/2025 11:51 AM ESTTemperature--Respiratory Rate--Oxygen Saturation 94%09/08/2025 11:51 AM ESTInhaled Oxygen Concentration--Wowxmb59 kg (183 lb) 09/08/2025 11:51 AM ENZKovwrn737.2 cm (5' 7 )09/08/2025 11:51 AM ESTBody Mass Index28.6609/08/2025 11:51 AM EST Plan of Treatment NamePriorityAssociated DiagnosesDate/TimeCORONARY ANGIOGRAPHY Systolic heart failure, unspecified HF chronicity (CMS/HCC) Elevated troponin RIGHT HEART CATH Systolic heart failure, unspecified HF chronicity (CMS/HCC) Elevated troponin Health MaintenanceDue DateLast DoneCommentsCT Wpnaebynilfl85/02/1953Colonoscopy 3Colorectal Cancer Ksbqlfilx45/02/1953FIT-DNA1952FIT1952 FOBT1952Medicare Annual Wellness (AWV)1950 6447Bxmkgztahcheg16/02/1953 Depression Jrwucdupq62/02/1965Adult Olsqgsw4212/05/1974Zoster Vaccines (1 of 2) 12/05/200212Pneumococcal Vaccine: 50+ Years (2 of 2 - PCV)07/14/2007 07/14/2006Fall Risk Bpijqpizh53/02/2018COVID-19 Vaccine (5 - season) 504/, 02/27/2021, 02/06/2021, Additional history existsInfluenza Vaccine (#1)/, 09/02/2019, 07/31/2016, Additional history existsHIB VaccinesAged OutNo [...] on patient's age to complete this topic Procedures Procedure NamePriorityDate/TimeAssociated DiagnosisCommentsECG 12 LEAD UNIT ZYIIEOLMHBqvvtwy33/06/2025 12:15 PM EST Elevated troponin from Last 3 Months Results * ECG 12 lead unit performed (09/08/2025 12:15 PM EST)Specimen (Source) Anatomical Location / LateralityCollection Method / VolumeCollection Time Received Time Narrative Authorizing ProviderResult TypeResult StatusAdam Yessenia CNPECG ORDERABLESFinal Result from Last 3 Months Insurance Care Teams Team MemberRelationshipSpecialtyStart DateEnd Date Vik Oreilly MD [address] [place] [address] [facility]07/10/22
--- OUTSIDE RECORDS SUMMARY | 2025-09-08 12:58 | XMS_ITS | CCD ---
Author Organization [facility] CliniSywy Care Team Providers Care Cafe Cook Name Role Phone AMBER KIRBY Admitting Unavailable [...] Facility (1 source)black walnut pollen extractDrug AllergyThe [facility] ([facility] source)Hmg-Coa Reductase Inhibitors (Statins); Translations: [statins] Propensity to adverse reactions (disorder)[facility] Repository (1 source)No Known Medication Allergies; Translations: [No Known Medication Allergies]Propensity to adverse reactions (disorder)[facility] Repository Medications Current Medications MedicationDrug Class(es)DatesSig (Normalized)Sig (Original)aspirin 81 mg delayed release oral tablet (2 sources)Platelet Aggregation Inhibitor, Nonsteroidal Anti-inflammatory Drug Start: 92-56-3923azsa 1 tablet by mouth once dailyaspirin 81 mg Oral EC Tab 81 mg = 1 tab(s), Oral, Daily Start Date: 06/19/21 Status: Orderedatenolol 50 mg oral tablet (2 sources)beta-Adrenergic BlockerStart: 82-88-1184ijjo 1 tablet by mouth once dailyatenolol 50 mg Tab 50 mg = 1 tab(s), Oral, Daily Start Date: 06/19/21 Status: OrderedOsteo Bi-Flex (2 sources)Start: 46-72-5332Yywji Bi-Flex Refill(s) 0 Start Date: 02/16/24 Status: Orderedezetimibe 10 mg oral tablet (2 sources)Dietary Cholesterol Absorption InhibitorStart: 17-40-8359exsf 1 tablet by mouth once dailyezetimibe 10 mg Tab 10 mg = 1 tab(s), Oral, Daily Start Date: 06/19/21 Status: OrderedFish Oils (2 sources)Start: 22-13-1237hmdt 1200 mg by mouth once dailyFish Oil 1,200 mg, Oral, Daily Start Date: 06/19/21 Status: Orderedlisinopril 10 mg oral tablet (2 sources)Angiotensin Converting Enzyme InhibitorStart: 14-37-7487kocd 1 tablet by mouth once dailylisinopril 10 mg Tab 10 mg = 1 tab(s), Oral, Daily Start Date: 06/19/21 Status: OrderedMultivitamin preparation (2 sources)Start: 64-99-4683xpjw 1 tablet by mouth once dailymultivitamin 1 tab(s), Oral, Daily, Refill(s) 0 Start Date: 02/16/24 Status: Orderedrosuvastatin calcium 10 mg oral tablet (2 sources)HMG-CoA Reductase InhibitorStart: 00-71-6329nakb 1 tablet by mouth once dailyrosuvastatin 10 mg Tab 10 mg = 1 tab(s), Oral, Daily Start Date: 06/19/21 Status: Ordered Problems Active Problems Problem ClassificationProblemDateDocumented DateEpisodic/ChronicAcute cerebrovascular disease (2 sources)Cerebrovascular -05-1827NfauvrdBsedk myocardial infarction (2 sources)Myocardial oxulhxidgf40-29-9275LhvlwreJsndotdy (2 sources)Vpepiixh31-17-0995KipmohiHfdtnhub atherosclerosis and other heart disease (7 sources)Atherosclerotic heart disease of [place] coronary artery without angina pectoris; Translations: [Coronary arteriosclerosis]Onset: 08-19-2022 45-23-0566YobdfabSeyrsiau mellitus without complication (4 sources)Other abnormal glucose; Translations: [OTHER ABNORMAL GLUCOSE]Onset: 82-39-1194BblhcyoxHpipbuscl of lipid metabolism (9 sources)Hyperlipidemia, unspecified; Translations: [Hyperlipidemia]Onset: 91-12-7964KmkchkiFqoiqxcgq hypertension (5 sources)Essential (primary) hypertension; Translations: [Hypertensive disorder]Onset: 191885-10-5546OvfcxjpOllesyg and fatigue (1 source)Other fatigue; Translations: [OTHER FATIGUE]Onset: 61-49-9842Pcdoahid Osteoarthritis (2 sources)Fxnpyveqpvbcoh39-49-3896NzhetroQwrhohfdufqw (2 sources)Qccmnilnllhb24-52-8680XjnhwtzRxxmk gastrointestinal disorders (2 sources)Occult blood in -98-4357RgwcuyaqNojay nutritional; endocrine; and metabolic disorders (2 sources)Body mass index 30+ - efxvvmk25-53-1363JvytyomRvtqq nutritional; endocrine; and metabolic disorders (2 sources)Morbid mikhbaw97-52-2904QczdftwEfkzn screening for suspected conditions (not mental disorders or infectious disease) (2 sources)Encounter for screening for malignant neoplasm of prostate; Translations: [Encounter for screening for malignant neoplasm of rectum]Onset: 10-18-0265JbubdxrqAlxtz skin disorders (2 sources)Hypertrophic condition of skin; Translations: [Other hypertrophic disorders of the skin]Onset: 97-49-9223BgkxcrmoSwymy skin disorders (2 sources)Skin xfa08-55-0546FttbygkzKyle-; endo-; and myocarditis; cardiomyopathy (except that caused by tuberculosis or sexually transmitted disease) (2 sources)CardiomyopathyOnset: 618255-53-8549AtrvbtkLjqfjqkagof; intervertebral disc disorders; other back problems (2 sources)Degeneration of lumbar intervertebral lwex38-78-2647Uyzqbsk Spondylosis; intervertebral disc disorders; other back problems (2 sources)Spinal stenosis of lumbar jfgmsy55-22-3322Xujubxze Past or Other Problems Problem ClassificationProblemDateDocumented DateEpisodic/ChronicCoronary atherosclerosis and other heart disease (2 sources)Presence of aortocoronary bypass graft; Translations: [Presence of aortocoronary bypass graft]Onset: 36-13-8530HggkppijGwjar liver diseases (2 sources)Abnormal levels of other serum enzymes; Translations: [Abnormal levels of other serum enzymes]Onset: 44-47-3024Xxcxuxxy Results Test NameValueInterpretationReference DislmYqrvtwtv94jy ----- Message ----- From: Bryce Huerta MD Sent: 03/27/2025 12:18 PM EDT To: Sunita Blanco MA His echo was ok, follow up as planned. Advised patient of Dr. Huerta's finding. Patient verbalized understanding.NormalUnProMedica Flower HospitalOrders Onlyon 63-30-9071Vwedvi [id number] Gretchen Delatorre 1950 M Date Provider Department Center 03/24/2025 [id number], [facility] RONAL Monsalve Family History Family history unknown: YesNormalUniversSelect Medical Specialty Hospital - Cleveland-FairhillOffice Visit on 02-74-5587Ygnyeg-up [id number] Gretchen Delatorre 1950 M Date Provider Department Center 10/18/2024 [facility] RONAL Monsalve Family History Family history unknown: Yes Level of Service:38591 OR OFFICE/OUTPATIENT ESTABLISHED LOW MDM 20 [facility]Path[facility] Noteon 41-04-8714Imvbbaoiz Note [id number]#1.00TIFMadison HealthAmbulatory Visit Summaryon 89-83-9246Eygyxwthrf Visit Summary GRETCHEN DELATORRE :1950 Visit Date:03/02/2024 [...] you for choosing us for your care. [facility]General [facility] Office/Clinic Noteon 70-42-9384Nvujhfs Surgery Office/Clinic NoteChief Complaint in-office excisional biopsy [...] Recorded SARS-CoV-2 (COVID-19) mRNA BNT-162b2 vax 02/06/2021 RecordedFayette County Memorial HospitalComment on above:Result Comment: Electronically Signed By: Haroon DON MD\Date and Time Signed: 03/02/24 15:16 Feliberto 03-02-2024L Specimen: [id number] Received: 03/03/24 Status: MICHELLE Santana Num: [id number] Spec Type: Surgical Subm Dr: Haroon Don MD FACS Tissues: A Skin-Other than Cyst, tag, debridement or plastic repair (RT CHEST WALL) Procedures: HE/4, Gross/Micro L4 Age/ Patient Sex Location Account Attending Physician Gretchen Delatorre 73/M LABELL [id number] Haroon Don MD FACS SPEC NUM: [id number] RECD: 03/03/24 STATUS: MICHELLE SANTANA NUM: [id number] PIYUSH: 03/02/24- DR: Haroon Don MD FACS ENTERED: 03/03/24 [facility] DR: Ava Salomon SPEC TYPE: [...] skin tag over several years CPT Codes 72961 Specimen: [id number] Received: 03/03/24 Status: MICHELLE Santana Num: [id number] Spec Type: Surgical Subm Dr: Haroon Don MD FACS Tissues: A Skin-Other than Cyst, tag, debridement or plastic repair (RT CHEST WALL) Procedures: , Gross/Micro L4 Patient: Gretchen Delatorre [id number] (Continued) Signed (signature on file) Misael Erazo MD 03/04/[address] [place] [address] Physician GroupAmbulatory Visit Summaryon 01-46-1301Yvbgcpzaei Visit Summary GRETCHEN DELATORRE A :1950 Visit [...] JAIME, Haroon Ellison Where: General Surgery Niljaney/Callie [facility] Facesheeton 15-10-5178Ttqqvfztr [id number]#1.00TIFMadison HealthPhysician Referralon 14-72-9174Blyigoybk Referral [id number]#1.00TIFMadison HealthPhysician Referralon 71-16-9279Lygdbyusc Referral [id number]#1.00Tuscarawas HospitalOCC BLD IMMUNO SCREENon 05-80-5174XJVRQR BLOODPositiveAbnormalNEGATIVEThe [facility] HospitalComment on above:Performed By: #### CMP, CK, LIPID #### [facility] [address] [address] [address] Tyrell Brooks AUTO DIFFon 94-96-0992GSEH #0.0 103/ulNormal0.0-0.1Prem[facility] Health Atrium Medical CenterComment on above:Performed By: #### CBC #### [facility] [address] [address] [address] Tyrell Amandasophils/100 WBC (Bld)0.5 %Normal0.2-2.0[facility] Comment on above:Performed By: #### CBC #### [facility] [address] [address] [address] Tyrell Crenshaw #0.2 103/ulNormal0.0-0.7The [facility] HospitalComment on above: Performed By: #### CBC #### [facility] [address] [place] [address] Dr. Tyrell Cernaosinophils/100 WBC (Bld)2.6 %Normal0.9-7.0The [facility] Comment on above:Performed By: #### CBC #### [facility] [address] [place] [address] Dr. Tyrell Cernarythrocyte distribution width (RBC) [Ratio]11.7 %Hxatms94.0-15.0 The [facility] on above:Performed By: #### CBC #### [facility] [address] [place] [address] Dr. Tyrell CasillasHematocrit (Bld) [Volume fraction]39.9 %Critically low42.0-54.0 The [facility] HospitalComformerly [facility] on above:Performed By: #### CBC #### [facility] [address] [place] [address] Dr. Tyrell CasillasHemoglobin (Bld) [Mass/Vol]13.9 g/dLCritically low14.0-18.0The [facility] HospitalComment on above:Performed By: #### CBC #### [facility] [address] [place] [address] Dr. Tyrell Bermeo #0.02 10e3/ulNormal0.00-0.03The [facility] HospitalComformerly [facility] on above:Performed By: #### CBC #### [facility] [address] [place] [address] Dr. Tyrell Bermeo %0.3 %Normal0.0-0.5The [facility] on above: Performed By: #### CBC #### [facility] [address] [place] [address] Dr. Tyrell TalleyH #1.7 103/ulNormal1.2-3.8The [facility] HospitalComformerly [facility] on above:Performed By: #### CBC #### [facility] [address] [place] [address] Dr. Tyrell Woodruffmphocytes/100 WBC (Bld)28.1 %Qzqdba05.5-60.0The [facility] HospitalComformerly [facility] on above:Performed By: #### CBC #### [facility] [address] [place] [address] Dr. Tyrell CasillasMANUAL DIFF REQNONormalThe [facility] HospitalComment on above: Performed By: #### CBC #### [facility] [address] [address] [address] Tyrell Villarreal (RBC) [Entitic mass]32.3 nnTvugzq99.9-34.0The [facility] HospitalComment on above:Performed By: #### CBC #### [facility] [address] [place] [address] Dr. Tyrell Villarreal (RBC) [Mass/Vol]34.8 g/lIWydhhh45.9-35.2The [facility] HospitalComment on above:Performed By: #### CBC #### [facility] [address] [place] [address] Dr. Tyrell Villarreal (RBC) [Entitic vol]92.8 eCXoxwjh53.0-94.0The [facility] HospitalComment on above:Performed By: #### CBC #### [facility] [address] [place] [address] Dr. Tyrell Elizondo #0.5 103/ulNormal0.3-0.8The [facility] HospitalComment on above:Performed By: #### CBC #### [facility] [address] [place] [address] Dr. Tyrell Patelocytes/100 WBC (Bld)8.5 %Normal1.7-12.0The [facility] Comment on above:Performed By: #### CBC #### [facility] [address] [place] [address] Dr. Tyrell Willson #3.5 103/ulNormal1.4-6.5The [facility] HospitalComment on above:Performed By: #### CBC #### [facility] [address] [place] [address] Dr. Tyrell Oconnorutrophils/100 WBC (Bld)60.0 %Mqmxyv34.0-75.0The [facility] HospitalComment on above:Performed By: #### CBC #### [facility] [address] [place] [address] Dr. Tyrell Chowdhurylet mean volume (Bld) [Entitic vol]8.3 fLCritically low 9.5-13.5The [facility] on above:Performed By: #### CBC #### [facility] [address] [address] [address] Tyrell CasillasPLT200 103/wpHezjay007-729Bmn [facility] on above: Performed By: #### CBC #### [facility] [address] [address] [address] Tyrell CasillasRBC4.30 106/ulCritically low4.70-6.10The [facility] HospitalComformerly [facility] on above:Performed By: #### CBC #### [facility] [address] [place] [address] Dr. Tyrell CasillasWBC5.9 103/ulNormal4.0-11.0The [facility] HospitalComformerly [facility] on above: Performed By: #### CBC #### [facility] [address] [place] [address] Dr. Tyrell CasillasCPKomartin 16-12-8868BP [Catalytic activity/Vol]505 U/LCritically high 39-308The [facility] on above:Performed By: #### CK #### [facility] [address] [place] [address] Dr. Tyrell CasillasFRLUZ MARINA T3on 95-86-0377ALUA T32.98 pg/mlLNormal2.18-3.98[facility] [place] on above:Performed By: #### T4, CMP, TSH, FT3, LIPID #### [facility] [address] [place] [address] Dr. Tyrell CasillasGLYCOHEMOGLOBIN A1Con 60-71-5434GDU RECOMMENDATIONSEE BELOWNormal The [facility] HospitalComformerly [facility] on above:Result Comment: ADA RECOMMENDED LIMIT 4.0 - 6.0 ADA THERAPEUTIC TARGET < 7.0 ACTION SUGGESTED > 7.0Performed By: #### CMP, CK, LIPID #### [facility] [address] [place] [address] Dr. Tyrell CasillasGlucose [Mass/Vol]131 mg/dLNormalThAultman HospitalComformerly [facility] on above:Performed By: #### CMP, CK, LIPID #### [facility] [address] [address] [address] Tyrell CasillasHbA1c (Bld) [Mass fraction]6.2 %Normal4.5-6.2The [facility] Memorial Hospitalment on above:Performed By: #### CMP, CK, LIPID #### [facility] [address] [address] [address] Tyrell HuangID PROFILEon 72-46-1769HIYC-HDL RATIO NORMSEE BELOWOur Lady of Mercy Hospital - AndersonComment on above:Result Comment: 3.3 - 4.4 LOW RISK 4.4 - 7.1 AVERAGE RISK 7.1 - 11.0 MODERATE RISK >11.0 HIGH RISKPerformed By: #### T4, CMP, TSH, FT3, LIPID #### [facility] [address] [place] [address] Dr. Tyrell Harperesterol [Mass/Vol]150 mg/dLNormal<=200The [facility] Comment on above:Performed By: #### T4, CMP, TSH, FT3, LIPID #### [facility] [address] [address] [address] Tyrell Harperesterol in HDL [Mass/Vol]42 mg/fPBezfgj63-99DwpKing's Daughters Medical Center [place] on above:Performed By: #### T4, CMP, TSH, FT3, LIPID #### [facility] [address] [address] [address] Tyrell Harperesterol in LDL [Mass/Vol]84.2 mg/dLOur Lady of Mercy Hospital - AndersonComformerly [facility] on above:Performed By: #### T4, CMP, TSH, FT3, LIPID #### [facility] [address] [address] [address] Tyrell Rosario.total/Cholesterol in HDL [Mass ratio]3.6 {ratio} NormalThe [facility] HospitalComformerly [facility] on above:Performed By: #### T4, CMP, TSH, FT3, LIPID #### [facility] [address] [place] [address] Dr. Tyrell SchultzL NORMAL> or = 60 mg/dl - LOW CARDIOVASCULAR RISK <40 mg/dl - HIGH CARDIOVASCULAR RISKOur Lady of Mercy Hospital - AndersonComment on above:Performed By: #### T4, CMP, TSH, FT3, LIPID #### [facility] [address] [place] [address] Dr. Tyrell Garcia CALC NORMALSEE BELOWOur Lady of Mercy Hospital - AndersonComment on above:Result Comment: <100 mg/dl OPTIMAL 100 - 129 mg/dl NEAR OR ABOVE OPTIMAL 130 - 159 mg/dl BORDERLINE HIGH 160 - 189 mg/dl HIGH >190 mg/dl VERY HIGH Performed By: #### T4, CMP, TSH, FT3, LIPID #### [facility] [address] [place] [address] Dr. Tyrell CasillasTriglyceride [Mass/Vol]119 mg/dLNormal<=150The [facility] Comment on above:Performed By: #### T4, CMP, TSH, FT3, LIPID #### [facility] [address] [place] [address] Dr. Tyrell CasillasVLDL CALC23.8 mg/dLNoCleveland Clinic Hillcrest HospitalComment on above: Performed By: #### T4, CMP, TSH, FT3, LIPID #### [facility] [address] [place] [address] Dr. Tyrell CasillasPRODiego 14(COMP METB)on 50-44-4285Bqqaimm [Mass/Vol]4.5 g/dLNormal 3.4-5.0The [facility] HospitalComment on above:Performed By: #### T4, CMP, TSH, FT3, LIPID #### [facility] [address] [place] [address] Dr. Tyrell CasillasAlbumin/Globulin [Mass ratio]1.1 {ratio}NormalThe [facility] HospitalComment on above:Performed By: #### T4, CMP, TSH, FT3, LIPID #### [facility] [address] [place] [address] Dr. Tyrell Haile [Catalytic activity/Vol]57 U/MSjwhnm46-415Hve [facility] Memorial Hospitalment on above:Performed By: #### T4, CMP, TSH, FT3, LIPID #### [facility] [address] [address] [address] Tyrell Martin [Catalytic activity/Vol]49 U/OGmvngw20-91Dgf [facility] HospitalComment on above:Performed By: #### T4, CMP, TSH, FT3, LIPID #### [facility] [address] [address] [address] Tyrell Barbosaon gap [Moles/Vol]12.7 mmol/LNormalPremier Health [facility] Center Comment on above:Performed By: #### T4, CMP, TSH, FT3, LIPID #### [facility] [address] [place] [address] Dr. Tyrell Mondragon [Catalytic activity/Vol]35 U/DFfqddf45-25Rea [facility] HospitalComment on above:Performed By: #### T4, CMP, TSH, FT3, LIPID #### [facility] [address] [place] [address] Dr. Tyrell CasillasBilirubin [Mass/Vol]0.4 mg/dLNormal0.2-1.0[facility] Comment on above:Performed By: #### T4, CMP, TSH, FT3, LIPID #### [facility] [address] [place] [address] Dr. Tyrell CasillasCalcium [Mass/Vol]9.5 mg/dLNormal8.5-10.1[facility] Comment on above:Performed By: #### T4, CMP, TSH, FT3, LIPID #### [facility] [address] [place] [address] Dr. Tyrell CasillasChloride [Moles/Vol]106 mmol/TDlhojf15-951Idz [facility] Comment on above:Performed By: #### T4, CMP, TSH, FT3, LIPID #### [facility] [address] [place] [address] Dr. Tyrell CasillasCO2 [Moles/Vol]27.4 mmol/UGwnwef49.0-32.0[facility] Comment on above:Performed By: #### T4, CMP, TSH, FT3, LIPID #### [facility] [address] [address] [address] Tyrell CasillasCreatinine [Mass/Vol]0.96 mg/dLNormal0.70-1.30The [facility] HospitalComment on above:Performed By: #### T4, CMP, TSH, FT3, LIPID #### [facility] [address] [address] [address] Tyrell CernaGFR-AF ANDORRAN>60Normal>=60The [facility] HospitalComment on above:Performed By: #### T4, CMP, TSH, FT3, LIPID #### [facility] [address] [place] [address] Dr. Tyrell CernaGFR-NON AF ANDORRAN>60Normal>=60The [facility] Hospitalment on above:Performed By: #### T4, CMP, TSH, FT3, LIPID #### [facility] [address] [place] [address] Dr. Tryell CasillasGlobulin (S) [Mass/Vol]4.0 g/dLNormalThe [facility] HospitalComment on above:Performed By: #### T4, CMP, TSH, FT3, LIPID #### [facility] [address] [place] [address] Dr. Tyrell CasillasGlucose [Mass/Vol]101 mg/wOAuxksd06-543Lwn [facility] Comment on above:Performed By: #### T4, CMP, TSH, FT3, LIPID #### [facility] [address] [place] [address] Dr. Tyrell CasillasPotassium [Moles/Vol]4.1 mmol/LNormal3.5-5.1The [facility] Comment on above:Performed By: #### T4, CMP, TSH, FT3, LIPID #### [facility] [address] [place] [address] Dr. Tyrell CasillasProtein [Mass/Vol]8.5 g/dLCritically high6.4-8.2The [facility] Hospitalment on above:Performed By: #### T4, CMP, TSH, FT3, LIPID #### [facility] [address] [place] [address] Dr. Yilan ChangSodium [Moles/Vol]142 mmol/LOojkzx179-659Ykg [facility] Comment on above:Performed By: #### T4, CMP, TSH, FT3, LIPID #### [facility] [address] [place] [address] Dr. Tyrell CasillasUrea nitrogen [Mass/Vol]18.0 mg/dLNormal7.0-18.0The [facility] HospitalComment on above:Performed By: #### T4, CMP, TSH, FT3, LIPID #### [facility] [address] [place] [address] Dr. Tyrell CasillasUrea nitrogen/Creatinine [Mass ratio]18.8 mg/mgNoCleveland Clinic Hillcrest HospitalComment on above:Performed By: #### T4, CMP, TSH, FT3, LIPID #### [facility] [address] [place] [address] Dr. Tyrell CasillasT4on 08-81-8780K3 [Mass/Vol]5.60 ug/dLNormal4.50-12.10The [facility] HospitalComment on above:Performed By: #### T4, CMP, TSH, FT3, LIPID #### [facility] [address] [place] [address] Dr. yTrell Xiao 62-16-5064GVW3.892 uIU/mLNormal0.358-3.740[facility] Atrium Medical CenterComment on above:Performed By: #### T4, CMP, TSH, FT3, LIPID #### [facility] [address] [place] [address] Dr. Tyrell CasillasCPKomartin 43-50-7949OT [Catalytic activity/Vol]444 U/LCritically high 39-308The [facility] HospitalComment on above:Performed By: #### CMP, CK, LIPID #### [facility] [address] [place] [address] Dr. Tyrell CasillasLIPID PROFILEon 67-12-7382ZYGT-HDL RATIO NORMSEE [facility] HospitalComment on above:Result Comment: 3.3 - 4.4 LOW RISK 4.4 - 7.1 AVERAGE RISK 7.1 - 11.0 MODERATE RISK >11.0 HIGH RISKPerformed By: #### CMP, CK, LIPID #### [facility] [address] [place] [address] Dr. Tyrell CasillasCholesterol [Mass/Vol]132 mg/dLNormal<=200The [facility] Comment on above:Performed By: #### CMP, CK, LIPID #### [facility] [address] [place] [address] Dr. Tyrell CasillasCholesterol in HDL [Mass/Vol]39 mg/dLCritically zvx76-15JbbPremier Health Atrium Medical CenterComment on above:Performed By: #### CMP, CK, LIPID #### [facility] [address] [place] [address] Dr. Tyrell CasillasCholesterol in LDL [Mass/Vol]72.8 mg/dLNoCleveland Clinic Hillcrest HospitalComment on above:Performed By: #### CMP, CK, LIPID #### [facility] [address] [place] [address] Dr. Tyrell Harperesterbg.total/Cholesterol in HDL [Mass ratio]3.4 {ratio} NormalPremier Health Atrium Medical CenterComment on above:Performed By: #### CMP, CK, LIPID #### [facility] [address] [place] [address] Dr. Tyrell Beaver NORMAL> or = 60 mg/dl - LOW CARDIOVASCULAR RISK <40 mg/dl - HIGH CARDIOVASCULAR RISKOur Lady of Mercy Hospital - AndersonComment on above:Performed By: #### CMP, CK, LIPID #### [facility] [address] [place] [address] Dr. Tyrell CasillasLDL CALC NORMALSEE BELOWOur Lady of Mercy Hospital - AndersonComment on above:Result Comment: <100 mg/dl OPTIMAL 100 - 129 mg/dl NEAR OR ABOVE OPTIMAL 130 - 159 mg/dl BORDERLINE HIGH 160 - 189 mg/dl HIGH >190 mg/dl VERY HIGH Performed By: #### CMP, CK, LIPID #### [facility] [address] [place] [address] Dr. Tyrell CasillasTriglyceride [Mass/Vol]101 mg/dLNormal<=150The [facility] Comment on above:Performed By: #### CMP, CK, LIPID #### [facility] [address] [place] [address] Dr. Tyrell YorkLDL CALC20.2 mg/dLNormalThe [facility]wood HospitalComment on above: Performed By: #### CMP, CK, LIPID #### [facility] [address] [address] [address] Tyrell CasillasPROF 14(COMP METB)on 53-76-1588Srcdwah [Mass/Vol]4.4 g/dLNormal 3.4-5.0The [facility] HospitalComment on above:Performed By: #### CMP, CK, LIPID #### [facility] [address] [place] [address] Dr. Tyrell CasillasAlbumin/Globulin [Mass ratio]1.3 {ratio}NormalThe [facility] HospitalComment on above:Performed By: #### CMP, CK, LIPID #### [facility] [address] [place] [address] Dr. Tyrell Haile [Catalytic activity/Vol]55 U/XGrbruk61-604Fqs [facility] HospitalComment on above:Performed By: #### CMP, CK, LIPID #### [facility] [address] [place] [address] Dr. Tyrell Martin [Catalytic activity/Vol]48 U/ONqvbfg29-93Kka [facility] HospitalComment on above:Performed By: #### CMP, CK, LIPID #### [facility] [address] [place] [address] Dr. Tyrell Whittaker gap [Moles/Vol]12.1 mmol/LNormalThe [facility] Comment on above:Performed By: #### CMP, CK, LIPID #### [facility] [address] [place] [address] Dr. Tyrell Mondragon [Catalytic activity/Vol]35 U/ORymqni58-34Crv [facility] HospitalComment on above:Performed By: #### CMP, CK, LIPID #### [facility] [address] [place] [address] Dr. Tyrell CasillasBilirubin [Mass/Vol]0.4 mg/dLNormal0.2-1.0The [facility] Comment on above:Performed By: #### CMP, CK, LIPID #### [facility] [address] [place] [address] Dr. Tyrell CasillasCalcium [Mass/Vol]9.0 mg/dLNormal8.5-10.1The [facility] Comment on above:Performed By: #### CMP, CK, LIPID #### [facility] [address] [place] [address] Dr. Tyrell CasillasChloride [Moles/Vol]106 mmol/OYasnok17-404Wvq [facility] Comment on above:Performed By: #### CMP, CK, LIPID #### [facility] [address] [place] [address] Dr. Tyrell CasillasCO2 [Moles/Vol]25.0 mmol/LZznunc14.0-32.0The [facility] Comment on above:Performed By: #### CMP, CK, LIPID #### [facility] [address] [place] [address] Dr. Tyrell CasillasCreatinine [Mass/Vol]0.85 mg/dLNormal0.70-1.30The [facility] HospitalComment on above:Performed By: #### CMP, CK, LIPID #### [facility] [address] [place] [address] Dr. Tyrell CernaGFR-AF ANDORRAN>60Normal>=60The [facility] HospitalComment on above:Performed By: #### CMP, CK, LIPID #### [facility] [address] [place] [address] Dr. Tyrell CernaGFR-NON AF ANDORRAN>60Normal>=60The [facility] HospitalComment on above:Performed By: #### CMP, CK, LIPID #### [facility] [address] [place] [address] Dr. Tyrell CasillasGlobulin (S) [Mass/Vol]3.4 g/dLNormalThe [facility] HospitalComment on above:Performed By: #### CMP, CK, LIPID #### [facility] [address] [address] [address] Tyrell CasillasGlucose [Mass/Vol]106 mg/kCCyfmbh51-530HydPremier Health [facility] Comment on above:Performed By: #### CMP, CK, LIPID #### [facility] [address] [address] [address] Tyrell CasillasPotassium [Moles/Vol]4.1 mmol/LNormal3.5-5.1The [facility] Comment on above:Performed By: #### CMP, CK, LIPID #### [facility] [address] [address] [address] Tyrell CasillasProtein [Mass/Vol]7.8 g/dLNormal6.4-8.2The [facility] Comment on above:Performed By: #### CMP, CK, LIPID #### [facility] [address] [address] [address] Tyrell CasillasSodium [Moles/Vol]139 mmol/SZgjxho616-557UzdPremier Health [facility] Comment on above:Performed By: #### CMP, CK, LIPID #### [facility] [address] [address] [address] Tyrell CasillasUrea nitrogen [Mass/Vol]15.0 mg/dLNormal7.0-18.0Premier Health Atrium Medical CenterComment on above:Performed By: #### CMP, CK, LIPID #### [facility] [address] [address] [address] Tyrell Watts nitrogen/Creatinine [Mass ratio]17.6 mg/mgNormalThe [facility] HospitalComment on above:Performed By: #### CMP, CK, LIPID #### [facility] [address] [place] [address] Dr. Tyrell CasillasCoding Summaryon 78-49-9021Npsamq SummaryCODING DATE: 05/31/2020 [facility] STATUS: Home PAYOR: Medicare MC [...] By: Eugenie George Date Saved: 05/31/2020 01:32 [facility] CenterProvider Orderson 30-32-9146Wrytfqtu [id number]#1.00OTNorth Country Hospital HospitalCoding Summaryon 75-54-8103Rykyln SummaryCODING DATE: 05/19/2020 FINAL [facility] STATUS: Home PAYOR: Medicare MC APC DESCRIPTION 5115 Level 5 Musculoskeletal Procedures ADMIT DX: REASON FOR VISIT DX: M16.11 Unilateral primary osteoarthritis, right hip FINAL DX: PRINCIPAL: M16.11 Unilateral primary osteoarthritis, right hip SECONDARY: I10 Essential (primary) hypertension I25.10 Atherosclerotic heart disease of [place] coronary artery without angina pectoris Z86.73 Personal history of transient ischemic attack (TIA), and cerebral infarction without residual deficits [facility] DES[facility] DOCTOR NAME DATE 58092 5115 J1 Arthroplasty, acetabular Quirino, Bairon And [...] Nicci Kee Revised Date Saved: 05/18/2020 12:22 [facility] CenterConsent Formson 08-35-4082Pfxunkh [id number]#1.00OTMercy Health Willard HospitalMedication Managementon 24-58-6623Akuhlmrukh Management [id number]#1.00OTGTMercy Health Urbana Hospital Outside Recordson 99-90-7361Munpkdd Records [id number]#1.00[facility] Provider Orderson 01-61-3826Ezqjnjgj Orders [id number]#1.00[facility] Telemetry Stripson 26-59-5618Tfkcfchva Strips [id number]#1.00[facility].Auto Diff 1on 04-00-8569Cgpn Blair %7 %Normal1-12[facility] HospitalComment on above: Performed By: #### [id number], [id number], [id number] #### [facility] (DEFAULT) [address] [place] [address] 43992Ugay Abs#0.0 s96Gbzkfa7.0-0.2Mmemorial hospital HospitalComment on above:Performed By: #### [id number], [id number], [id number] #### [facility] (DEFAULT) [address] [place] [address] 40677Azkpstyqe/100 WBC (Bld)0.2 %Normal0.2-2.0[facility] Hospital Comment on above:Performed By: #### [id number], [id number], [id number] #### [facility] (DEFAULT) [address] [place] [address] 46769Txo Abs#0.1 h62Adjnqx8.0-0.4[facility] HospitalComment on above:Performed By: #### [id number], 52435265, [id number] #### [facility] (DEFAULT) [address] [place] [address] 73580Wncfndxtqyi/100 WBC (Bld)1.5 %Normal0.9-4.0[facility] HospitalComment on above:Performed By: #### 7425530, [id number], [id number] #### [facility] (DEFAULT) [address] [place] [address] 36861Dhsskjhxldt (Bld) [#/Vol]1.3 u02Kppwyg7.3-2.9[facility] HospitalComment on above:Performed By: #### [id number], [id number], [id number] #### [facility] (DEFAULT) [address] [place] [address] 11788Uchqxqqgelz/100 WBC (Bld)15 %Lrgkvm24-45Ivxyvcoc Hospital Comment on above:Performed By: #### [id number], 54763444, [id number] #### [facility] (DEFAULT) [address] [place] [address] 08103Stir Abs#0.6 k45Qvfnmp6.0-0.8[facility] HospitalComment on above:Performed By: #### 5245562, [id number], [id number] #### [facility] (DEFAULT) [address] [place] [address] 11071Cvez Abs#6.4 m56Gbjkxu7.5-9.2Mmemorial hospital HospitalComment on above:Performed By: #### [id number], 88027115, [id number] #### [facility] (DEFAULT) [address] [place] [address] 82670Phvswmpyrpd/100 WBC (Bld)76 %Weklje66-96Uxaaqurl Hospital Comment on above:Performed By: #### [id number], [id number], [id number] #### [facility] (DEFAULT) [address] [place] [address] 89116TUD w/ Auto Diffon 98-99-9681Cafzsmrilbv distribution width (RBC) [Ratio]11.9 %Elxbks21.5-15.0[facility] HospitalComment on above: Performed By: #### [id number], 14658914, [id number] #### [facility] (DEFAULT) [address] [place] [address] 51983Bdlfpxwamv (Bld) [Volume fraction]26.9 %Low34.8-51.9 [facility] HospitalComment on above:Performed By: #### 5243582, [id number], [id number] #### [facility] (DEFAULT) [address] [place] [address] 88226Ezvllwchap (Bld) [Mass/Vol]9.2 g/dLLow11.8-17.7Kettering HealthComment on above:Performed By: #### [id number], [id number], [id number] #### [facility] (DEFAULT) [address] [place] [address] 32160Rnp Diff?AutoNormalPremier Health [facility] HospitalComment on above: Performed By: #### [id number], [id number], [id number] #### [facility] (DEFAULT) [address] [place] [address] 66141IFX (RBC) [Entitic mass]32 bpVolcqs36-75Duwnvjty Hospital Comment on above:Performed By: #### [id number], [id number], [id number] #### [facility] (DEFAULT) [address] [place] [address] 50092SIUA (RBC) [Mass/Vol]34 g/gWXgfpld15-76Cqpnhhcr Hospital Comment on above:Performed By: #### [id number], 06240363, [id number] #### [facility] (DEFAULT) [address] [place] [address] 10867SII (RBC) [Entitic vol]94 jHHtgpfo86-516Jhepveru Hospital Comment on above:Performed By: #### 4306895, 12157166, [id number] #### [facility] (DEFAULT) [address] [place] [address] 17552Lvyuvpzs mean volume (Bld) [Entitic vol]9.4 fLNormal 6.3-10.2MPremier Health Upper Valley Medical CenterComment on above:Performed By: #### 8155293, 60602995, [id number] #### [facility] (DEFAULT) [address] [place] [address] 00445Vzhaofjqx (Bld) [#/Vol]203 e88Gfxktq165-353Nwwwxaqi HospitalComment on above:Performed By: #### 4006158, 66845907, [id number] #### [facility] (DEFAULT) [address] [place] [address], [place] [address]VYS (Bld) [#/Vol]2.87 g25Zje2.70-5.30[facility] Comment on above:Performed By: #### 5159556, 98399356, [id number] #### [facility] (DEFAULT) [address] [place] [address] 41[address]VWY (Bld) [#/Vol]8.5 h23Kltmfy8.5-10.5[facility] Comment on above:Performed By: #### 8585114, 72336352, [id number] #### [facility] (DEFAULT) [address] [place] [address] 93454Ouqkzgjhd Noteon 28-43-9252Jkuwasosu NoteEducation Materials POST OPERATIVE TOTAL HIP DISCHARGE [...] done to rule of a DVT.[facility]Extra [facility] 23-76-2578Wtxk CollectedOhioHealth Grady Memorial HospitalComment on above:Performed By: #### 6944117, [id number], [id number] #### [facility] (DEFAULT) [address] [place] [address] 97294Tcghiapen Patient Summaryon 61-58-7534Jscuczkag Patient Summary[address] [address] Patient Discharge Instructions Name: GRETCHEN DELATORRE : 1950 Patient Address: [address] [facility] [facility] [address] [place] [address] Primary Care Provider: Name: DAKSHA OREILLY After you are discharged if you find you have any questions, please, call [phone] ext [phone] to speak to a nurse. Discharge Diagnosis: Primary osteoarthritis of right hip Prescription Information: If you have been given a prescription for narcotics, seek immediate medical attention if you have any difficulty breathing or any sudden status changes such as confusion andsleepiness. If you or anyone you know is experiencing suicidal thoughts, mental health, alcohol and/or drug addiction problems; contact the [facility] 26/05 Crisis Hotline -Text 4HXYV to 638190. If you received any narcotics, sedation, or [...] business decisions or sign any legal documents [facility] would like to thank you for allowing us to assist you with your healthcare needs.The following includes patient education materials and information regarding your injury/illness. GRETCHEN DELATORRE has been given the following list of follow-up instructions, prescriptions, and patient education materials: Follow-up Instructions With: Address: When: Bairon [address] [facility] [address] [place] [address] Business (2) 05/25/2020 2:00 PM With: Address: When: DAKSHA OREILLY [address] [place] [address], [facility] [place] [address] Business (1) Medications During the [...] Centers for Disease Control and Prevention July 2014NoC[facility] Nutrition Noteon 24-91-9780Iriruvbxq NotePt eating well avg 70-100% of meals and taking supplements as ordered. No new wts. Labs reviewed, post op anemia noted. No new rec'd at this time. Will continue to follow.[facility] Noteon 84-74-1785Ltipetje NoteI have personally reviewed the patient's current [...] Echavarria [Verified on: 05/17/2020 08:32 EDT] [facility]av[facility]St[facility] - Nurseon 05-17-2020 Progress Note - [...] [Verified on: 05/17/2020 17:30 EDT] Bilger RN, [facility]-Phys[facility]on 05-17-2020 Progress Note-PhysicianDATE OF POSTOPERATIVE FOLLOW [...] Win's office. Bert Aguila DO JOB #: [id number] bk [Electronically Signed on: 05/18/2020 11:35 EDT] BERT AGUILA DO [Verified on: 05/18/2020 11:35 EDT] BERT AGUILA DO [Transcribed on: 05/17/2020 14:48 EDT] GDUNRegency Hospital [facility].Auto Diff 1on 75-10-0205Gyum Blair %9 %Normal1-12 [facility] HospitalComment on above:Performed By: #### [id number], 93840411, [id number] #### [facility] (DEFAULT) [address] [place] [address] 12100Gmcn Abs#0.0 r80Hjwvtc1.0-0.2Magrselect medical specialty hospital - boardman, inc HospitalComment on above:Performed By: #### [id number], 66321827, [id number] #### [facility] (DEFAULT) [address] [place] [address] 19478Zbdyyydre/100 WBC (Bld)0.1 %Low0.2-2.0[facility] Comment on above:Performed By: #### [id number], 36683010, [id number] #### [facility] (DEFAULT) [address] [place] [address] 98061Zub Abs#0.0 m04Bzkmzl2.0-0.4[facility] HospitalComment on above:Performed By: #### 4142184, 47759249, [id number] #### [facility] (DEFAULT) [address] [place] [address] 96795Scsjdkstlft/100 WBC (Bld)0.2 %Low0.9-4.0[facility] Hospital Comment on above:Performed By: #### 3536362, 88296985, [id number] #### [facility] (DEFAULT) [address] [place] [address] 75839Xcsklpnkmua (Bld) [#/Vol]1.8 u03Ikzoct1.3-2.9Magrselect medical specialty hospital - boardman, inc HospitalComment on above:Performed By: #### [id number], 89745103, [id number] #### [facility] (DEFAULT) [address] [place] [address] 74792Morthyinuoo/100 WBC (Bld)14 %Tsaaea37-36Qnbgkcmf Hospital Comment on above:Performed By: #### [id number], 12505597, [id number] #### [facility] (DEFAULT) [address] [place] [address] 14172Ipsf Abs#1.1 t40Szqz1.0-0.8[facility] HospitalComment on above:Performed By: #### 0733583, 59392657, [id number] #### [facility] (DEFAULT) [address] [place] [address] 05745Erku Abs#9.9 l28Ubco7.5-9.2Mmemorial hospital HospitalComment on above:Performed By: #### 9624540, 59457700, [id number] #### [facility] (DEFAULT) [address] [place] [address] 72416Ukmjsbqbtcd/100 WBC (Bld)77 %Ohhscu45-41Ofmfyxvi Hospital Comment on above:Performed By: #### 3823314, 62096910, [id number] #### [facility] (DEFAULT) [address] [place] [address] 03275DEB w/ Auto Diffon 71-20-1744Vcaftwqnbrn distribution width (RBC) [Ratio]12.1 %Vhrepo71.5-15.0[facility] HospitalComment on above: Performed By: #### [id number], [id number], [id number] #### [facility] (DEFAULT) [address] [place] [address] 83792Bpnqngujqm (Bld) [Volume fraction]30.8 %Low34.8-51.9 [facility] HospitalComment on above:Performed By: #### 9965227, 40272408, [id number] #### [facility] (DEFAULT) [address] [place] [address] 80472Sfeeqjnzam (Bld) [Mass/Vol]10.5 g/dLLow11.8-17.7[facility] HospitalComment on above:Performed By: #### [id number], 77176166, [id number] #### [facility] (DEFAULT) [address] [place] [address] 10889Ioc Diff?AutoNormalPrem[facility] Health [facility] HospitalComment on above: Performed By: #### 7211514, 60623914, [id number] #### [facility] (DEFAULT) [address] [place] [address] 36006THY (RBC) [Entitic mass]32 tgDdhicu80-52[facility] Comment on above:Performed By: #### [id number], 00455458, [id number] #### [facility] (DEFAULT) [address] [place] [address] 36397MXRF (RBC) [Mass/Vol]34 g/hETrzmwb76-28Kqenxkcu Hospital Comment on above:Performed By: #### 5074039, 97649826, [id number] #### [facility] (DEFAULT) [address] [place], [place] [address]V (RBC) [Entitic vol]93 eGQarado75-470Oppsetbq Hospital Comment on above:Performed By: #### 2205416, 44936531, [id number] #### [facility] (DEFAULT) [address] [place] [address] 92457Cehcvdcs mean volume (Bld) [Entitic vol]9.2 fLNormal 6.3-10.2MPremier Health Upper Valley Medical CenterComment on above:Performed By: #### 1352695, 75513437, [id number] #### [facility] (DEFAULT) [address] [place] [address] 89707Lsxdudxlt (Bld) [#/Vol]238 l75Mxrxrn460-928Guujgozh HospitalComment on above:Performed By: #### 7052962, 57578991, [id number] #### [facility] (DEFAULT) [address] [place] [address] 32773OAT (Bld) [#/Vol]3.31 b84Ilb1.70-5.30[facility] Comment on above:Performed By: #### 4015204, 59579441, [id number] #### [facility] (DEFAULT) [address] [place], [place] [address]ONS (Bld) [#/Vol]12.9 k73Uqft4.5-10.5[facility] Comment on above:Performed By: #### [id number], 43125663, [id number] #### [facility] (DEFAULT) [address] [place], [place] [address]Bwczyder Note-Physicianon 96-47-4182Ijsgtfrz Note-PhysicianDATE OF POSTOPERATIVE ORTHOPEDIC PROGRESS NOTE: 05/16/2020 [...] x-ray. PROGNOSIS: Good. Bert Aguila, JOB #: [id number] bk [Electronically Signed on: 05/17/2020 11:24 EDT] AUSTIN AGUILAIrene WHITE [Verified on: 05/17/2020 11:24 EDT] BERT AGUILA DO [Transcribed on: 05/16/2020 13:06 EDT] [facility].Auto Diff 1on 51-45-0520Ivwh Blair %1 %Normal1-12 [facility] HealthComment on above:Performed By: #### [id number], 91743508, [id number] #### [facility] (DEFAULT) [address] [place] [address] 65674Yjjf Abs#0.0 a44Acoqid7.0-0.2Magrselect medical specialty hospital - boardman, inc HospitalComment on above:Performed By: #### [id number], 76566572, [id number] #### [facility] (DEFAULT) [address] [place] [address] 32986Jzsbvbtbk/100 WBC (Bld)0.1 %Low0.2-2.0[facility] Comment on above:Performed By: #### [id number], 99534355, [id number] #### [facility] (DEFAULT) [address] [place] [address] 72970Gsd Abs#0.0 i89Dvllcm8.0-0.4[facility] HospitalComment on above:Performed By: #### [id number], [id number], [id number] #### [facility] (DEFAULT) [address] [place] [address] 93538Rwpnvdcjpsp/100 WBC (Bld)0.1 %Low0.9-4.0[facility] Comment on above:Performed By: #### [id number], 55084767, [id number] #### [facility] (DEFAULT) [address] [place] [address] 75221Tbkylkljpqd (Bld) [#/Vol]0.4 f31Qbr5.3-2.9[facility] HospitalComment on above:Performed By: #### [id number], [id number], [id number] #### [facility] (DEFAULT) [address] [place] [address] 67776Ezpdtpwvgmw/100 WBC (Bld)4 %Yea23-23Zwrshdpe Hospital Comment on above:Performed By: #### 2809982, 68340782, [id number] #### [facility] (DEFAULT) [address] [place] [address] 92023Hylc Abs#0.2 x74Vksvpa3.0-0.8[facility] HospitalComment on above:Performed By: #### 8263856, 80241797, [id number] #### [facility] (DEFAULT) [address] [place] [address] 56922Vweq Abs#10.0 n81Zwgz2.5-9.2Magrselect medical specialty hospital - [facility], inc HospitalComment on above:Performed By: #### [id number], [id number], [id number] #### [facility] (DEFAULT) [address] [place] [address] 51728Xteafzngdbp/100 WBC (Bld)94 %Msbp08-83Idcredvi Hospital Comment on above:Performed By: #### 9258590, 64781232, [id number] #### [facility] (DEFAULT) [address] [place] [address] 92941Iuckwzxygo Noteon 28-15-3713Wtyubcadci NotePatient: GRETCHEN DELATORRE Age: 69 years Sex: [...] AAA (abdominal aortic aneurysm) / SNOMED CT 024035271 / Confirmed CAD (coronary artery disease) / SNOMED CT 20943382 / Confirmed Myocardial infarct / SNOMED CT 96333578 / Confirmed Resolved: CVA, old, cognitive deficits / SNOMED CT 8239285814 Histories Family History: Entire family history is negative. Procedure history: AAA - Abdominal aortic aneurysm (891471634) in 2012 at 62 Years. AAA - Abdominal aortic aneurysm (082266666) in 2005 at 55 Years. quaddruple cardiac byapss in 2005 at 55 Years. back surgery in 2004 at 54 Years. knee scope in 2004 at 54 Years. Comments: 04/27/2020 14:05 Abimbola Pickering RN right Hip arthroplasty (506077238) in 2004 at 53 Years. AAA - Abdominal aortic aneurysm (077871143) in 2003 at 52 Years. Social History [...] ECG interpretation: SR, occ PVCs, NSTWA. Plan Citizen Of [place] Society of Anesthesiologists#(ASA) physical status classification: Class III. Anesthetic Preoperative Plan Anesthesia: General. . Anesthetic plan, risks, benefits, and alternatives discussed with the patient and/or family. Patient verbalized understanding. Informed consent was given. Consent was signed by the patient. [Electronically Signed on: 05/15/2020 08:26 EDT] Tom Casiano MD [Verified on: 05/15/2020 08:26 EDT] Tom Casiano [facility] w/ Auto Diffon 70-84-0411Etubhyplwjv distribution width (RBC) [Ratio]12.1 %Oaglzg77.5-15.0[facility] HealthComment on above:Performed By: #### 3561464, 34757904, [id number] #### [facility] (DEFAULT) [address] [place] [address] 77619Fgholmodfl (Bld) [Volume fraction]33.2 %Low34.8-51.9 [facility] HealthComment on above:Performed By: #### 6752473, 22463876, [id number] #### [facility] (DEFAULT) [address] [place] [address] 78456Nhaldcrgsb (Bld) [Mass/Vol]11.5 g/dLLow11.8-17.7[facility] HealthComment on above:Performed By: #### 3038920, 60565087, [id number] #### [facility] (DEFAULT) [address] [place] [address] 27359Xtq Diff?AutoNormalPremier Health [facility] HospitalComment on above: Performed By: #### 8533810, 01433068, [id number] #### [facility] (DEFAULT) [address] [place] [address] 69671UIU (RBC) [Entitic mass]32 usAtpfqm28-96Ewyzisgp Hospital Comment on above:Performed By: #### 5283429, 81449984, [id number] #### [facility] (DEFAULT) [address] [place] [address] 67298XWTW (RBC) [Mass/Vol]35 g/uZOsmznu03-85Bftusfic Hospital Comment on above:Performed By: #### 5074139, 48381203, [id number] #### [facility] (DEFAULT) [address] [place] [address] 25780NLR (RBC) [Entitic vol]92 rGXzksmb46-505Qgfrglxy Hospital Comment on above:Performed By: #### 7953686, 02257085, [id number] #### [facility] (DEFAULT) [address] [place] [address] 53339Dmlmqdwe mean volume (Bld) [Entitic vol]9.5 fLNormal 6.3-10.2Mmemorial hospital HospitalComment on above:Performed By: #### 8350651, 00839650, [id number] #### [facility] (DEFAULT) [address] [place] [address] 13065Gwbfobrkh (Bld) [#/Vol]205 e42Znztfx127-543Pnyytffh HospitalComment on above:Performed By: #### 2978169, 63222594, [id number] #### [facility] (DEFAULT) [address] [place] [address] 45989TZF (Bld) [#/Vol]3.62 w00Qmj8.70-5.30[facility] Comment on above:Performed By: #### 2612365, 03900534, [id number] #### [facility] (DEFAULT) [address] [place] [address] 06073GGJ (Bld) [#/Vol]10.6 r49Mkhz7.5-10.5[facility] Comment on above:Performed By: #### 6542938, 39082038, [id number] #### [facility] (DEFAULT) [address] [place] [address] 66873Paesgvx and Physicalon 11-14-6595Mdcrvrf and Physical [id number]#1.00OTGTIFFNoalPremier Health [facility] South HospitalMAGR Intraoperative Recordon 35-77-7315TTZX Intraoperative RecordMAGR Intra-Op Record Summary Primary Physician: Bairon Win DO Finalized Date/Time: 05/15/20 17:18:47 Pt. Name: GRETCHEN DELATORRE/Sex: 1950 MALE Med Rec #: [id number] Physician: Bairon Win DO Financial #: [id number] Pt. Type: O Room/Bed: [facility]/1 Admit/Disch: 05/15/20 06:07:00 - Institution: Case Times [...] Role Performed Surgeon - Primary Anesthesiologist of Director Funeral Record Time In 05/15/20 09:01:00 05/15/20 09:01:00 05/15/20 09:01:00 Time Out 05/15/20 11:20:00 05/15/20 11:20:00 05/15/20 11:20:00 Procedure Arthroplasty Total Arthroplasty Total Arthroplasty Total Hip(Right) Hip(Right) Hip(Right) Last Modified By: Ethel Gibson RN, Stephanie RN Sauer, Stephanie RN 05/15/20 14:15:50 05/15/20 14:15:50 05/15/20 14:15:50 Entry 4 Entry 5 Entry 6 Case Attendee Adina Guzman CST, Adkins, Brittany E CST Regina TACK COVERER Role Performed Scrub Personnel Youth Pastor Youth Pastor Time In 05/15/20 09:01:00 05/15/20 09:01:00 05/15/20 [...] CUFF REG FORCED WARM AIR Serial ?# [id number] Equipment Setting FACTORY DEFAULT 43 DEGREES [...] By: Pedro Edgar DO Size 54MM 58MM Salsa Dance Instructor DePuy DEPUY DEPUY Catalog # Lot Number [id number] Expiration Date 03/02/30 04/02/30 Serial Number REF [id number] REF [id number] REF [id number] Device Identifier Human Readable PAUL Machine Readable PAUL MR Class Implant Usage Data Site Hip R Hip R Hip R Quantity 1 1 1 Reason for Explant Reason Not Retained Explant Disposition Video Game Creator Sterility External Indicator Result Internal Indicator Results [...] 56OD 6.5MM X 25MM KA SIZE 11 Salsa Dance Instructor DEPUY DEPUY DEPUY Catalog # Lot Number [id number] Expiration Date 12/31/24 10/02/29 07/03/24 Serial Number REF [id number] REF [id number] REF [id number] Device Identifier Human Readable PAUL Machine Readable PAUL MR Class Implant Usage Data Site Hip R Hip R Hip R Quantity 1 2 1 Reason for Explant Reason Not Retained Explant Disposition Video Game Creator Sterility External Indicator Result Internal Indicator Results Outcome Met (O.30) Yes Yes Yes Last Modified By: Ethel Gibson RN, Stephanie RN Sauer, Stephanie RN 05/15/20 15:23:55 05/15/20 15:23:55 05/15/20 15:23:55 Entry 7 Procedure Arthroplasty Total Hip(Right) Implant Action Implant Description DEPUY M SPEC METAL FEMORAL HEAD Implant Information Implant/Explant 05/15/20 10:25:00 Date/Time Implanted/Explanted Bairon Win By: Pedro Size 036MM 10/16 TAPER Salsa Dance Instructor DEPUY Catalog # Lot Number [id number] Expiration Date 07/03/24 Serial Number REF 1365-51-000 Device Identifier Human Readable PAUL Machine Readable PAUL MR Class Implant Usage Data Site Hip R Quantity 1 Reason for Explant Reason Not Retained Explant Disposition Video Game Creator Sterility External Indicator Result Internal Indicator Results [...] Signatures Signed By: Ethel Gibson RN 05/15/20 17:18[facility] PACU Recordon 30-41-7979ESKI PACU RecordMAGR PACU Record Summary Primary Physician: Bairon Win DO Finalized Date/Time: 05/15/20 12:19:32 Pt. Name: NANDINIGRETCHEN./Sex: 1950 MALE Med Rec #: [id number] Physician: Bairon Win DO Financial #: [id number] Pt. Type: D Room/Bed: 221/1 Admit/Disch: 05/15/20 06:07:00 - Institution: PACU Case Times MAGR Entry 1 In PACU I 05/15/20 11:15:00 Discharge from PACU 05/15/20 12:05:00 I Last Modified By: Francesca Pastrana RN 05/15/20 12:19:29 Finalized By: Francesca Pastrana RN Document Signatures Signed By: Francesca Pastrana RN 05/15/20 12:19[facility] Preoperative Recordon 43-82-3314PITV Preoperative RecordMAGR Pre-Op Record Summary Primary Physician: Bairon Win DO Finalized Date/Time: 05/15/20 13:36:44 Pt. Name: GRETCHEN DELATORRE /Sex: 1950 MALE Med Rec #: [id number] Physician: Bairon Win DO Financial #: [id number] Pt. Type: O Room/Bed: 221/1 Admit/Disch: 05/15/20 [...] By: Francesca Pastrana RN 05/15/20 13:36[facility]hillNutrition Noteon 05-15-2020 Nutrition NotePt admitted for planned [...] minerals already in place. To follow.[facility]FairhillOperative Report - Surgeon/Physicianon 05-15-2020 Operative Report - [...] impacted a 56 mm gription cup ( [employer]) this was secured with 2 6.5 mm [...] both with saline and then also diluted [place] dine mixture. The fascial planes were injected [...] [Verified on: 05/15/2020 12:17 EDT] Bairon Win [facility] HospitalPh[facility] Noteon [facility]-15-2020 Pharmacy NoteI have personally [...] on: 05/15/2020 15:26 EDT] Radha ReynaramonSelect Medical Specialty Hospital - [facility]-FairhillXR Hip Complete Righton 94-88-2397JK Hip Complete RightEXAM: Right hip HISTORY: Postoperative [...] Signature): Haroon Javier 05/15/20 11:59 a Technologist: ISRRAELTrinity Health [facility] Medical CenterABORhon 04-33-7318JUB and [facility] Nom (Bld)Hx Check: Not Found Anti-A: 4+ Anti-B: 0 Anti-D: 4+ DCon: NT A1: 0 B: 4+ ABORh Interp: A POSPremier Health Miami Valley Hospital South HospitalComment on above:Performed By: #### [id number] #### [facility] (DEFAULT) [address] [place] [address] 22627QDENz Retypeon 49-31-1333AXO and [facility] Nom (Bld)Ordered by Discern. Anti-A: 4+ Anti-B: 0 Anti-D: 4+ DCon: NT A1: 0 B: 4+ ABORh Retype: A POSPremier Health Miami Valley Hospital South HospitalComment on above:Performed By: #### [id number] #### [facility] (DEFAULT) [address] [place] [address] 39244HLEN Gelon 62-66-9144SCGK GelNegativeKing's Daughters Medical Center Ohio HospitalComment on above:Performed By: #### [id number] #### [facility] (DEFAULT) [address] [place] [address] 64501Gjzrl Bank IDon [id number] Bank IDBBID: [id number] [facility] HospitalComment on above:Performed By: #### [id number] #### [facility] (DEFAULT) [address] [place] [address] 73125U&Hon 41-01-4966Zdliclzfel (Bld) [Volume fraction]38.3 % Yygywu14.8-51.9[facility] HospitalComment on above:Performed By: #### [id number] #### [facility] (DEFAULT) [address] [place] [address] 74748Vpxrrtmvyn (Bld) [Mass/Vol]13.3 g/tYChfbgr06.8-17.7 [facility] HospitalComment on above:Performed By: #### [id number] #### [facility] (DEFAULT) [address] [place] [address] 94928CRKX-DcA-4 (COVID-19) PCRon 11-25-8081YHZGX-19 PCRNot DetectedNormalNot DetectedPremier Health [facility] HospitalComment on above:Performed By: #### [id number] #### [facility] (DEFAULT) [address] [place] [address] 52960Lumcrmbk Note - Nurseon 70-53-8188Oonlwqww Note - Nurse Spoke with pt regarding arrival time of 0600 and NPO after midnight. Pt instructed he will need to be tested for COVID on Friday when he comes in for type and screen. Verbalized understanding. [Electronically Signed on: 05/12/2020 09:38 EDT] Sara Alvarez RN [Verified on: 05/12/2020 09:38 EDT] Sara Alvarez RNrmalMagruder HospitalCoding Summaryon 15-02-2142Qzzqgg SummaryCODING DATE: 05/10/2020 FINAL [facility] STATUS: Home PAYOR: Medicare MC APC DESCRIPTION [...] By: Eugenie George Date Saved: 05/10/2020 01:27 [facility] CenterBilling Authorizationson 28-68-2593Whpzsrg Authorizations [id number]#1.00[facility] Medication Managementon 13-12-3269Icembgyjbg Management [id number]#1.00[facility] Coding Summaryon 98-67-1461Uytocd SummaryCODING DATE: 05/08/2020 [facility] STATUS: Home PAYOR: Medicare MC [...] By: Eugenie George Date Saved: 05/08/2020 01:38 [facility] CenterProgress Note - Nurseon 29-20-9850Rjhoztcl Note - NursePAT review done per Dr. Willie villarreal Cardiac workup, no orders received. [Electronically Signed on: 05/02/2020 07:05 EDT] Warga, Francesca RN [Verified on: 05/02/2020 07:05 EDT] Francesca Pastrana RNSelect Medical Specialty Hospital - Cleveland-FairhillProgress Note - NurseDr. Burgos reviews PAT information and testing results. Request copy of the stress test and last ca rdiology office notes. Call made to [facility], spoke with [facility]. Requested above information. Release of information faxed for records request. [Electronically Signed on: 05/01/2020 09:47 EDT] Maritza Teresa RN [Verified on: 05/01/2020 09:47 EDT] Maritza Teresa RNSelect Medical Specialty Hospital - Cleveland-FairhillC MRSA Screenon 04-28-2020C MRSA ScreenNegativeKing's Daughters Medical Center Ohio HospitalComment on above:Performed By: #### [id number] #### [facility] (DEFAULT) [address] [place] [address] 74689Eidbvtrp Orderson 27-21-7248Gbxbgjog Orders [id number]#1.00OTGTIFFSelect Medical Specialty Hospital - [facility]hill.Auto Diff 1on 52-39-7386Sleg Blair %9 %Normal1-12[facility] HospitalComment on above: Performed By: #### 1338084, 14775944, [id number] #### [facility] (DEFAULT) [address] [place] [address] 84851Inca Abs#0.0 u34Bpyyfx2.0-0.2Magrselect medical specialty hospital - [facility], inc HospitalComment on above:Performed By: #### 0510812, 23909788, [id number] #### [facility] (DEFAULT) [address] [place] [address] 58327Ufpmzcljm/100 WBC (Bld)0.4 %Normal0.2-2.0[facility] Hospital Comment on above:Performed By: #### 8661928, 49259184, [id number] #### [facility] (DEFAULT) [address] [place] [address] 59163Ghy Abs#0.1 p25Rzxpmy4.0-0.4[facility] HospitalComment on above:Performed By: #### 7543520, 88647274, [id number] #### [facility] (DEFAULT) [address] [place] [address] 45373Prvzjnjpqcz/100 WBC (Bld)1.7 %Normal0.9-4.0[facility] HospitalComment on above:Performed By: #### 2108939, 09364440, [id number] #### [facility] (DEFAULT) [address] [place] [address] 98232Dbmfvswwhmw (Bld) [#/Vol]1.6 x83Ledxzo4.3-2.9Magrselect medical specialty hospital - boardman, inc HospitalComment on above:Performed By: #### 8904915, 14731529, [id number] #### [facility] (DEFAULT) [address] [place] [address] 42549Ulijzqwqlhw/100 WBC (Bld)20 %Kpspym29-25Zqqrqkqr Hospital Comment on above:Performed By: #### 4638137, 64674032, [id number] #### [facility] (DEFAULT) [address] [place] [address] 90423Yhoq Abs#0.7 j08Dqbkqn7.0-0.8[facility] HospitalComment on above:Performed By: #### 4812524, 36928562, [id number] #### [facility] (DEFAULT) [address] [place] [address] 90514Vscu Abs#5.2 i96Szqthw3.5-9.2[facility] HospitalComment on above:Performed By: #### 9157313, 60027008, [id number] #### [facility] (DEFAULT) [address] [place] [address] 39244Feakdmjxufq/100 WBC (Bld)69 %Xkmbya97-06Dzedsxli Hospital Comment on above:Performed By: #### [id number], 17505050, [id number] #### [facility] (DEFAULT) [address] [place] [address] 83960LLZ Standardon 02-73-6493dHKK Non AA>60[facility] Comment on above:Performed By: #### 5918597, 38051635, [id number] #### [facility] (DEFAULT) [address] [place] [address] 48207yFQG AA>60[facility] HealthComment on above:Result Comment: Chronic Kidney disease could be indicated at eGFRs of less than 60 ml/min/1.73m2. Kidney Failure is indicated at less than 15 ml/min/1.73m2 Performed By: #### 7851485, 01738158, [id number] #### [facility] (DEFAULT) [address] [place] [address] 29645Jnsru gap [Moles/Vol]12.0 mmol/LNormal5.0-19.0[facility] HealthComment on above:Performed By: #### 7538085, 79051582, [id number] #### [facility] (DEFAULT) [address] [place] [address] 90821Tgkyinw [Mass/Vol]9.7 mg/dLNormal8.9-10.3MPremier Health [facility] Comment on above:Performed By: #### 4416589, 33333210, [id number] #### [facility] (DEFAULT) [address] [place] [address] 05435Sogaspye [Moles/Vol]106 mmol/HKcrggx230-498Jxnvjtua HospitalComment on above:Performed By: #### 6275512, 38217927, [id number] #### [facility] (DEFAULT) [address] [place] [address] 85140VF0 [Moles/Vol]23 mmol/NMqlcdf41-16Irmpelsn Hospital Comment on above:Performed By: #### 1415298, 71353467, [id number] #### [facility] (DEFAULT) [address] [place] [address] 51815Ggtydbuynw [Mass/Vol]0.72 mg/dLLow0.90-1.30[facility] HospitalComment on above:Performed By: #### 7987606, 99156213, [id number] #### [facility] (DEFAULT) [address] [place] [address] 20968Bgohrha [Mass/Vol]85.0 mg/vXEyaryv27.0-118.0[facility] HospitalComment on above:Performed By: #### 4659925, 90224203, [id number] #### [facility] (DEFAULT) [address] [place] [address] 17278Vzbpjdgozu [Osmolality]274 mOsm/LMmemorial hospital HospitalComment on above:Performed By: #### 0094353, 69572148, [id number] #### [facility] (DEFAULT) [address] [place] [address] 12055Lowlbkexs [Moles/Vol]4.4 mmol/LNormal3.6-5.1Mmemorial hospital HospitalComment on above:Performed By: #### 6095872, 36214702, [id number] #### [facility] (DEFAULT) [address] [place] [address] 72451Orjjej [Moles/Vol]137.0 mmol/OPeicqc067.0-144.0[facility] HospitalComment on above:Performed By: #### 4577129, 46260073, [id number] #### [facility] (DEFAULT) [address] [place] [address] 57834Guum nitrogen [Mass/Vol]16 mg/dLNormal8-26[facility] HospitalComment on above:Performed By: #### 1942660, 00909817, [id number] #### [facility] (DEFAULT) [address] [place] [address] 01435Hfbe nitrogen/Creatinine [Mass ratio]22.0 mg/mgHigh 4.6-16.2Mmemorial hospital HospitalComment on above:Performed By: #### 2035430, 78218711, [id number] #### [facility] (DEFAULT) [address] [place] [address] 87730XWC w/ Auto Diffon 71-05-6898Waxazhhinke distribution width (RBC) [Ratio]12.2 %Myuokw43.5-15.0[facility] HealthComment on above: Performed By: #### 7261320, 52804841, [id number] #### [facility] (DEFAULT) [address] [place] [address] 50801Spxrsftnhp (Bld) [Volume fraction]38.9 %Wmdbjz19.8-51.9 [facility] HealthComment on above:Performed By: #### 4403011, 68977249, [id number] #### [facility] (DEFAULT) [address] [place], [place] [address]Hemoglobin (Bld) [Mass/Vol]13.5 g/vVJqvmen10.8-17.7 [facility] HealthComment on above:Performed By: #### 1598536, 30985642, [id number] #### [facility] (DEFAULT) [address] [place] [address] 63514Clo Diff?AutoNormalKettering HealthComment on above: Performed By: #### 1653684, 28404561, [id number] #### [facility] (DEFAULT) [address] [place] [address] 79774XBA (RBC) [Entitic mass]32 juJpppnv17-92Ytylspka Hospital Comment on above:Performed By: #### 0111714, 70290374, [id number] #### [facility] (DEFAULT) [address] [place] [address] 25855IONT (RBC) [Mass/Vol]35 g/cZBmbgpg69-65Knbhxfxd Hospital Comment on above:Performed By: #### 7054293, 15766210, [id number] #### [facility] (DEFAULT) [address] [place] [address] 17134ANO (RBC) [Entitic vol]91 qEXxisnw08-406Dfaxmpsv Hospital Comment on above:Performed By: #### 2004054, 39481999, [id number] #### [facility] (DEFAULT) [address] [place] [address] 51708Ngvnnwho mean volume (Bld) [Entitic vol]9.3 fLNormal 6.3-10.2MPremier Health Upper Valley Medical CenterComment on above:Performed By: #### 2210465, 68711064, [id number] #### [facility] (DEFAULT) [address] [place] [address] 36553Vlbvdcbam (Bld) [#/Vol]220 r55Jtunbx229-788Aiifgoyj HospitalComment on above:Performed By: #### 0259757, 65691988, [id number] #### [facility] (DEFAULT) [address] [place] [address] 66285OHI (Bld) [#/Vol]4.26 j15Pdbqzh2.70-5.30[facility] Comment on above:Performed By: #### 9791126, 75366618, [id number] #### [facility] (DEFAULT) [address] [place] [address] 38254ERA (Bld) [#/Vol]7.6 q40Jxrkur3.5-10.5[facility] Comment on above:Performed By: #### 9053271, 13076752, [id number] #### [facility] (DEFAULT) [address] [place] [address] 03336Qrvjzljr Orderson 78-94-0487Mijklauc Orders [id number]#1.00OTGTIFFNoCleveland Clinic Mentor HospitalUA w Culture if Ind Standardon 34-66-9994Mzwxztfhem UASelect [facility] Comment on above:Performed By: #### [id number] #### [facility] (DEFAULT) [address] [place] [address] 99230Dhpey (U)YellowNormalMagruder HospitalComment on above: Performed By: #### [id number] #### [facility] (DEFAULT) [address] [place] [address] [id number]?NoNormalMagruder HospitalComment on above: Performed By: #### [id number] #### [facility] (DEFAULT) [address] [place] [address] [id number] (U) [Mass/Vol]NegativeNormalMagruder Hospital Comment on above:Performed By: #### [id number] #### [facility] (DEFAULT) [address] [place] [id number] Ql (U)NegativeNormalMagruder HospitalComment on above:Performed By: #### [id number] #### [facility] (DEFAULT) [address] [place] [address] [id number]?Not IndicatedNormalMagruder HospitalComment on above:Performed By: #### [id number] #### [facility] (DEFAULT) [address] [place] [address] [id number] BilirubinNegativeNormalMagruder HospitalComment on above:Performed By: #### [id number] #### [facility] (DEFAULT) [address] [place] [address] [id number] BloodNegativeNormalNEGATIVEMagruder HospitalComment on above:Performed By: #### [id number] #### [facility] (DEFAULT) [address] [place] [address] [id number] ClarityCLEARNormalCLEARMagruder HospitalComment on above:Performed By: #### [id number] #### [facility] (DEFAULT) [address] [place] [address] [id number] Leuk EstNegativeNormalNEGATIVEMagruder HospitalComment on above:Performed By: #### [id number] #### [facility] (DEFAULT) [address] [place] [address] [id number] NitriteNegativeNormalNEGATIVEMagruder HospitalComment on above:Performed By: #### [id number] #### [facility] (DEFAULT) [address] [place], [place] [address]UA pH6.4Aubngs1-7Mtmksddj HospitalComment on above: Performed By: #### [id number] #### [facility] (DEFAULT) [address] [place] [address] [id number] ProteinNegativeNormalNEGATIVEPremier Health [facility] Hospital South HospitalComment on above:Performed By: #### [id number] #### [facility] (DEFAULT) [address] [place], [place] [id number] Spec Grav<=1.989Evmuwn7.001-1.035[facility] Comment on above:Performed By: #### [id number] #### [facility] (DEFAULT) [address] [place], [place] [address]UA Urobilinogen0.2 mg/dLNormal0.2-1.0[facility] Comment on above:Performed By: #### [id number] #### [facility] (DEFAULT) [address] [place], [place] [id number] SourceClean CatchNormalKettering HealthComment on above:Performed By: #### [id number] #### [facility] (DEFAULT) [address] [place] [address] Vital Signs Date TimeVital SignValuePerforming YauroevzoGlepqbqx48-98-5747 13:41-0400Blood Pressure LocationMichael NILL [facility] [place] [facility] Cgxuxyrk64-16-3302 13:41-0400Diastolic blood nbneulfi44 mm[Hg]Haroon NILL [facility] Nlkislbu27-71-0828 13:41-0400Heart rate 76 /minMichael NILL [facility] [place] Wosbilwg34-48-6132 13:41-0400 Respiratory rate16 /minMichael NILL [facility] Nrnifsma21-37-2033 13:41-0400Systolic blood faijjqjz816 mm[Hg]Haroon NILL General Surgery [facility]ime Encounters Encounter DateEncounter TypeCare ProviderFacilityStart: 10-18-2024 End: 96-87-0977pzjwzxqerpYAVWNS [facility] Start: 03-02-2024 End: 37-70-2367solpqiicwwKnmkryj R NILLFacility:[facility]: 03-02-2024 End: 54-50-8458Cjgqawq encounter procedureMichael R NILL 062-2476Vtnjsb-Quizb General Surgery Aime Start: 03-02-2024 End: 40-99-2978bmvnakiqrnWoxddwn R NillFacility:[facility] Hospitaltart: 02-18-2024 End: 32-40-7183ltegaoiwmgOngyvoy R NILLFacility:[facility]ueStart: 02-18-2024 End: 24-87-6486Jtzcxsx encounter procedureMichael R NILL General Surgery Nill/Said [facility] Start: 03-19-2023 End: 95-09-7102sckayhfyqfRE DAKSHA OREILLY .Facility:L4Bhsni: 03-18-2023 End: 45-14-1755qfkfbfesryGZ DAKSHA HOY .Facility:Y5Icvve: 03-18-2023 End: 88-62-8082omjqghwcawMWPHJBN TUSHANNAERFacility:X5Kpzud: 08-16-2022 End: 74-86-0512ypovplxahxSJ BRYCE MOUKARBELFacility:L3Pjdxu: 06-29-2022 ambulatoryDR BRYCE MOUKARBELFacility:H1 Procedures DateProcedureProcedure DetailPerforming ClinicianStart: 09-61-5475RKM screening AMBERMARTA Deleonment on above:Performed By: #### CMP, CK, LIPID #### [facility] [address] [place] [address] Dr. Tyrell CasillasStart: 59-77-9185Nbiuow of joint of right hipMichael NILL Start: 20-79-6855Eyfugjsy artery bypass grafts x 4 Haroon NILL Start: 11-61-9818Yfgakd of joint of left hipMichael NILL Arthroscopy of kneeMichael NILL ColonoscopyMichael NILL Insertion of inferior vena caval filterMichael NILL LaminectomyMichael NILL Lysis of adhesionsMichael NILL Repair of recurrent incisional herniaMichael NILL Repair of ventral herniaMichael NILL Comment on above:x 3 Immunizations Immunization DateImmunizationNotesCare PiyanjpdFianofqz00-38-9573slgigcyic virus vaccine, unspecified formulationMichael NILL General Surgery Yfumtsmt66-34-2789GWEO-LtI-4 (COVID-19) mRNA BNT-162b2 vaxMichael NILL General Surgery Pcrfugoi25-47-9227YQBL-EmG-0 (COVID-19) mRNA BNT-162b2 vaxMichael NILL General Surgery Aime Payers DatePayer CategoryPayerPolicy [id number] 2.16.840.1.7369[id number] 2.16.840.1.680386.3.57[id number] 2.16.840.1.865542.3.[id number] 2.16.840.1.063511.[id number] 2..0.1.8656[id number] 2..0.1.0[id number] 2.0.1.211622.3.579.2.531 Social History DateTypeDetailFacilityStart: 97-18-9647Uzgmlpr smoking statusNever smoked tobacco (finding)General Surgery LavonTobacco smoking statusNeverGeneral Surgery BellueSex Assigned At [facility] Functional Status RppzFwzeoasmspVpujxfEkkgkpzk44-43-7509Zsriscdozv StatusN/AGeneral Surgery [facility] Progress note 10-18-2024 Note Date & ZnzkRzcoHzpvrxpk74-53-1984 NoteUT Cardiology - [facility] Subjective Gretchen Delatorre is a [...] Visual field defect Coronary artery disease involving [place] coronary artery of [place] heart without angina pectoris History of coronary [...] by oral route., Di (more content not included)...[facility] Clinical Note 02-18-2024 Note Date & CrqqUqnySbsyeiyj84-70-1084 NoteChief Complaint consultation for skin lesion HPI [...] Recorded SARS-CoV-2 (COVID-19) mRNA BNT-162b2 vax 02/06/2021 RecordedFulton County Health CenterComment on above:Result Comment: Electronically Signed By: AUDI JAIME, Haroon Ellison\.br\Date and Time Signed: 02/18/24 15:21 EDT Evaluation + Plan note Note Date & TypeNoteFacilityEvaluation + Plan note Future Appointments Appointment Date:03/02/2024 03:00:00 PM Scheduled Provider:Haroon DON MD Location:[facility] Appointment Type: Procedure 30 General Surgery [facility] Hospital course Narrative Note Date & TypeNoteFacilityHospital course Narrative No data available for this section General [facility] Discharge instructions Note Date & TypeNoteFacilityHospital Discharge instructions No data available for this section General Surgery [facility] Progress note Note Date & TypeNoteFacilityProgress note [...] Advanced Directives Records Found Hospital Course Note [facility] Clinical Discharge Summary PERSON INFORMATION Name GRETCHEN DELATORRE Age 69 Years 1950 Sex MALE Language Lithuanian PCP DAKSHA OREILLY Marital Status Med Service Observation Acct# Arrival 05/15/2020 06:07:00 Visit Reason RIGHT TOTAL HIP Acuity LOS Address: [address] [place] [address] [address] [facility] [address] Comment: PROVIDER INFORMATION VITALS INFORMATION Vital Sign [...] section and content) DATE CREATED AUTHOR 07/26/2020 [facility] DATE CREATED AUTHOR AUTHOR'S ORGANIZ ATION 03/20/2023 [facility] DATE CREATED AUTHOR AUTHOR'S ORGANIZ ATION 03/05/[address] [facility] DATE CREATED AUTHOR AUTHOR'S ORGANIZ ATION 03/06/2024 [facility] DATE CREATED AUTHOR AUTHOR'S ORGANIZ ATION 04/09/2025 [facility] Patient Care team informatio n (unrecognized section and content) Personnel Name: Daksha Oreilly MD Address: Address: [address] [place] [address] Personnel Name: Daksha Oreilly MD Address: Address: [address] [place] [address] FOR RECORDS PERTAINING TO PATIENTS WHO ARE [...] BE BASED ON THE PRIMARY CLINICAL RECORDS. [employer] provides no warranty or guarantee of the accuracy or completeness of information in this document.
[2025-09-08 13:23] LABS: Hematocrit 26.9 % (42.0-54.0); Hemoglobin 8.7 g/dL (14.0-18.0); Immature Granulocytes Abs Auto 0.01 10^3/uL (0.00-0.03); Immature Granulocytes Pct Auto 0.2 % (0.0-0.5); Lymphocytes Absolute Auto 1.0 10^3/uL (1.2-3.8); Mean Corpuscular HGB Conc 32.3 g/dL (29.9-35.2); Mean Corpuscular Hemoglobin 36.0 pg (25.9-34.0); Mean Corpuscular Volume 111.2 fL (80.0-94.0); Platelet Count 135 10^3/uL (150-450); Red Blood Count 2.42 10^6/uL (4.70-6.10); White Blood Count 6.5 10^3/uL (4.0-11.0)
[2025-09-08 13:58] LABS: Alanine Aminotransferase 110 U/L (16-63); Albumin Globulin Ratio 0.3; Albumin Level 3.2 g/dL (3.4-5.0); Alkaline Phosphatase 55 U/L (46-116); Anion Gap 9.6; Aspartate Amino Transferase 88 U/L (15-37); Blood Urea Nitrogen 18.0 mg/dL (7.0-18.0); Calcium 8.9 mg/dL (8.5-10.1); Carbon Dioxide 26.4 mmol/L (21.0-32.0); Chloride 103 mmol/L (98-107); Estimated GFR (African America >60 (>=60 mL/min/1.73m^2); Estimated GFR (Non-African Ame >60 (>=60 mL/min/1.73m^2); Globulin 9.3 g/dL; Glucose 80 mg/dL (74-106); Potassium 4.0 mmol/L (3.5-5.1); Sodium 135 mmol/L (136-145); Total Protein 12.5 g/dL (6.4-8.2)
[2025-09-08 14:27] LABS: NT Pro B Type Natriuretic Pept 2208.0 pg/mL (<=900.0)
== END 2025-09-08 12:47 | disposition home or self-care (01) ==
LOC: LAB 12:52
PROVIDERS: PCP Family Medicine; Visit Provider Family Medicine
DX: I50.9 Heart failure, unspecified (principal); D64.9 Anemia, unspecified; I25.10 Atherosclerotic heart disease of native coronary artery without angina pectoris; I42.7 Cardiomyopathy due to drug and external agent; I21.09 ST elevation (STEMI) myocardial infarction involving other coronary artery of anterior wall; Z79.899 Other long term (current) drug therapy
CPT/HCPCS: 36415; 80053; 83880; 84484; 85025

== ENCOUNTER 2025-09-12 12:20 | Outpatient (OUT) | payer MEDICARE, SELFPAY ==
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
--- OUTSIDE RECORDS SUMMARY | 2025-09-12 12:33 | XMS_ITS | Encounter Summary ---
Author Organization [facility] Address [address] [place] [address] Care Team Providers Care Washer And Crusher Tender Name Role Phone Vik Oreilly MD Primary Care Provider [phone] Encounter Details DateTypeDepartmentCare Team (Latest Contact Info)Nghemuarcpd31/07/2025Orders Only [facility] at [facility] [address] [place] [address] Cami Benson MA Social History Tobacco UseTypesPacks/DayYears UsedDateSmoking Tobacco: FormerCigarettes Smokeless Tobacco: NeverAlcohol UseStandard Drinks/WeekCommentsYes0 (1 standard drink = 0.6 oz pure alcohol)MODERATEUT Safety & EnvironmentAnswerDate Recorded Fear of Current or Ex-PartnerNot on file12/25/2023Emotionally AbusedNot on file 4Physically AbusedNot on file12/25/2023Sexually AbusedNot on file 4Physically or Sexually AbusedNot on file12/25/2023Sex and Gender InformationValueDate RecordedSex Assigned at LmeaaQfiy85/06/2025 11:41 AM EST Legal XqkKpkk2005/01/2022 9:50 PM EDTGender RjwlbdfbHqgj34/06/2025 11:41 AM EST Sexual OrientationHeterosexual or Vupzgbfj02/06/2025 11:41 AM ESTdocumented as of this encounter Plan of Treatment NamePriorityAssociated DiagnosesDate/TimeCORONARY ANGIOGRAPHY Systolic heart failure, unspecified HF chronicity (CMS/HCC) Elevated troponin RIGHT HEART CATH Systolic heart failure, unspecified HF chronicity (CMS/HCC) Elevated troponin documented as of this encounter Visit Diagnoses Not on filedocumented in this encounter Care Teams Team MemberRelationshipSpecialtyStart DateEnd Date Vik Oreilly MD [address] [place] [id number] PCP - General07/10/22documented as of this encounter
--- OUTSIDE RECORDS SUMMARY | 2025-09-12 12:33 | XMS_ITS | Encounter Summary ---
Author Organization [facility] Address [address] [place] [address] Care Team Providers Care Senior Design Engineer Name Role Phone Vik Oreilly MD Primary Care Provider [phone] Encounter Details DateTypeDepartmentCare Team (Latest Contact Info)Wcgdhlznybu26/06/2025Orders Only [facility] at [facility] [address] [place] [address] Cami Benson MA Encounter for [...] file12/25/2023Sex and Gender InformationValueDate RecordedSex Assigned at AeqkmVgpj89/06/2025 11:41 AM EST Legal AmaThym5005/01/2022 9:50 PM EDTGender DfznjmfvLcjz23/06/2025 11:41 AM EST Sexual OrientationHeterosexual or Upmgshql71/06/2025 11:41 AM ESTdocumented as of this encounter Functional Status * BPAnswerDate of TcfcifahlnIxrnfg897/7509/08/2025 11:51 AM Mary Parr MA * PulseAnswerDate of MixiitkvptWzmzum6084 11:51 AM Mary Parr MA * Audit Alcohol ScreeningQuestionAnswerDate of AssessmentAuthoow often do you have a drink containing alcohol? 11:54 AM Mary Parr MAHow many standard drinks containing alcohol do you have on a typical day?0 09/08/2025 11:54 AM Mary Parr MA * Patient PositionAnswerDate of QcejdgdoqcBdwsakYqzeewt22/06/2025 11:51 AM Mary Bear MA * BPAnswerDate of GndoduduprMfnram787/7509/08/2025 11:51 AM Mary Parr MA * PulseAnswerDate of IxxosdoqndXrsith7050/06/2025 11:51 AM Mary Parr MA * MhN5GkvjvvOajj of ZlxztlajkyZrfpkj7986/06/2025 11:51 AM Mary Parr MA * BP LocationAnswerDate of AssessmentAuthorRmunising memorial hospital09/08/2025 11:51 AM Mary Bear MA * Audit Alcohol ScreeningQuestionAnswerDate of AssessmentBellevue Hospital often do you have a drink containing alcohol? 11:54 AM Mary Parr MAHow many standard drinks containing alcohol do you have on a typical day?0 09/08/2025 11:54 AM Mary Parr MA * Patient PositionAnswerDate of ZbsocxihwxKwwjfrLqlngol84/06/2025 11:51 AM Mary Bear MA documented as [...] MemberRelationshipSpecialtyStart DateEnd Date Vik Oreilly MD [address] [place] [id number] PCP - General07/10/22documented as of this encounter
--- OUTSIDE RECORDS SUMMARY | 2025-09-12 12:33 | XMS_ITS | Clinical Summary ---
Author Organization [facility] Address [address] [place] [address] Care Team Providers Care Jockey'S Agent Name Role Phone Vik Oreilly MD Primary Care Provider [phone] Allergies Active AllergyReactionsCriticalityNoted DateCommentsStatinsUnknownMedium 05/16/2023 Medications MedicationSigDispense [...] ComplexActive beta carotene (vitamin A) 7.5 MG (15142 UT) capsule Vitamin AActive rosuvastatin (Crestor) 10 [...] aortic aneurysm (AAA) without rupture 05/15/2023oronary artery cnyrrtb6305/15/2023History of total hip replacement 05/15/2023Other sequelae of cerebral ozmgugrndr95/13/2023rimary osteoarthritis of right hip05/15/2023 Immunizations ImmunizationAdministration DatesNext DueInfluenza, trivalent, adjuvanted 09/02/2019 Social History Tobacco UseTypesPacks/DayYears UsedDateSmoking Tobacco: NeverSmokeless Tobacco: Never Tobacco Cessation:Counseling Given: Not Answered Alcohol UseStandard Drinks/WeekCommentsYes1 (1 standard drink = 0.6 oz pure alcohol)Sex and Gender InformationValueDate RecordedSex [facility]igned at [facility] 05/09/2023 11:31 AM EDTLegal RgsGgoe8101/15/2023 10:09 PM EDTGender IdentityMale 05/09/2023 11:31 AM EDTSexual OrientationNot on file Last Filed Vital Signs Vital SignReadingTime TakenCommentsBlood Pressure--Pulse--Temperature-- Respiratory Rate--Oxygen Saturation--Inhaled Oxygen Concentration--Zmeaff28.2 kg (190 lb)05/16/2023 11:22 AM TEOMgxdsr709.6 cm (5' 6 )05/16/2023 11:22 AM EDTBody Mass Index30.67005/16/2023 11:22 AM EDT Plan of Treatment Not on file Insurance Care Teams Team MemberRelationshipSpecialtyStart DateEnd Date Vik Oreilly MD PCP - GeneralFadcly Medicine05/14/23
--- OUTSIDE RECORDS SUMMARY | 2025-09-12 12:33 | XMS_ITS | Clinical Summary ---
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 angina pectoris,Hyperlipemia, mixedTAKE 1 TABLET [...] the morning.09/08/2025Discontinued(Ineffective) Active Problems ProblemNoted DateDiagnosed DateAcute lbctnxdefb67/06/8437Mibuin95/06/2025 Aphthous ulcer09/08/20254938Jufvvobkzp02/06/2025ervical nfmmxyjjytlaw40/06/2025 Closed fracture of multiple ribs of both sides09/08/2025losed fracture of pzmbbmn2109/08/2025losed fracture of shaft of ulna09/08/2025ontusion of lung without open wound into nwoyuo8109/08/2025Derangement of lateral meniscus 09/08/2025Eczema of hand09/08/20259974Iskbn37/06/4568Axqmxdwcqsbr69/06/2025H/O adverse drug /06/2025Heart tvcwval3409/08/2025Hemorrhage of rectum and anus09/08/2025History of inferior vena caval filter sbeucyxzg93/06/2025 Homonymous vwcjczucbk94/06/4178Nylsljxzrecmoc60/06/2025Impacted cerumen 09/08/2025Laceration of liver09/08/2025Low back pain09/08/2025Lumbosacral spondylosis without vzgmmhdige34/06/2025Macular qnwinq1309/08/2025Pneumothorax, pgodptpkl73/06/4017Hlgeialske50/06/2025Infectious ksfzmne3009/08/2025Prosthetic joint xijqponzw14/06/2025Retroperitoneal ssiiawpf19/06/6131Empjmkbyg30/06/2025 BMI 33.0-33.9,adult10/18/2024Morbid mapqpwe9210/18/2024Skin tag10/18/2024History of total hip rrhkohprhzn78rimary osteoarthritis of right hip Spinal stenosis of lumbar ujcaez8901/30/2023Sequelae of cerebral qxemquvoqr45/30/2023rimary localized osteoarthritis of pelvic region and thigh01/30/2023resence of right artificial hip joint01/30/2023 Fzpgcztxzpfpas65/30/2023Occult blood in caxqzt4601/30/2023ifficulty walking 01/30/2023egeneration of intervertebral disc of lumbar lgjahw8301/30/2023 Cerebrovascular accident (CVA)3Abnormal gait01/30/2023bdominal aortic aneurysm without yxlrsnn2001/30/20232577Tstgojeqqvgy14/30/8122Zfyvqztu87/30/2023 Coronary artery disease involving curyung coronary artery of curyung heart without angina vyantzde17/17/2022History of coronary artery bypass graft08/19/2022 Essential fhkcgdgqureq13/17/2022ellulitis of hip, right05/25/2020MGUS (monoclonal gammopathy of unknown significance)06/28/2013cute myocardial infarction of inferior wall05/19/20136771Ibichpmsmvdewh03/17/2013Hyperlipidemia 05/19/2013Old myocardial /17/2013Visual field vabqon5905/19/2013 Encounters DateTypeDepartmentCare XmwhQdemzdyxbxg34/07/2025Orders Only [facility] Heart at [place] [address] [place] [address] Cami Benson MA 09/08/2025 11:[address] 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 [address] [place] [facility] [place] [address] Cami Benson MA Congestive heart failure, unspecified HF chronicity, unspecified heart failure type (CMS/HCC) (Primary Dx)09/08/2025Orders Only [facility] [address] [place] [address] Cami Benson MA Encounter for pre-operative examination (Primary Dx); Congestive heart failure, unspecified HF chronicity, unspecified heart failure type (CMS/HCC)07/11/2025Refill [facility] [address] [facility] [place] [address] Mary Ureña MA Acute myocardial infarction of inferior wall (CMS/HCC)06/24/2025Refill 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; Hyperlipemia, mixedfrom Last 3 Months Immunizations ImmunizationAdministration DatesNext DueInfluenza, injectable, quadrivalent, preservative free07/31/2016Influenza, seasonal, dsdswdnoiw2014Influenza, seasonal, injectable, preservative free, 6 moonths & older08/02/2015Influenza, trivalent, gvgiixsnqa91/31/2019Pneumococcal Polysaccharide IUU337907/14/2006 Unspecified Sars-Cov-2 Grpckoztyhz38/27/2021,02/06/2021Zoster, live10/31/2016 Family History RelationNameStatusCommentsFatherAliveMotherDeceased Social History Tobacco UseTypesPacks/DayYears UsedDateSmoking Tobacco: FormerCigarettes Smokeless Tobacco: Never Tobacco Cessation:Counseling Given: Not Answered Alcohol UseStandard Drinks/WeekCommentsYes0 (1 standard drink = 0.6 oz pure alcohol)MODERATEUT Safety & EnvironmentAnswerDate RecordedFear of Current or Ex-PartnerNot on file12/25/2023Emotionally AbusedNot on file12/25/2023hysically AbusedNot on file12/25/2023Sexually AbusedNot on 12/25/2023hysically or Sexually AbusedNot on 12/25/2023Sex and Gender InformationValueDate Recorded Sex Assigned at KluxlPwcj99/06/2025 11:41 AM ESTLegal SmiArqi7805/01/2022 9:50 PM EDTGender GxahokvkTexq05/06/2025 11:41 AM ESTSexual OrientationHeterosexual or Khbifwto93/06/2025 11:41 AM EST Last Filed Vital Signs Vital SignReadingTime TakenCommentsBlood Cxrnznvv093/7509/08/2025 11:51 AM EST Elepa428109/08/2025 11:51 AM ESTTemperature--Respiratory Rate--Oxygen Saturation 94%09/08/2025 11:51 AM ESTInhaled Oxygen Concentration--Kulmss89 kg (183 lb) 09/08/2025 11:51 AM OBPLaemzb377.2 cm (5' 7 )09/08/2025 11:51 AM ESTBody Mass Index28.6609/08/2025 11:51 AM EST Plan of Treatment NamePriorityAssociated DiagnosesDate/TimeCORONARY ANGIOGRAPHY Systolic heart failure, unspecified HF chronicity (CMS/HCC) Elevated troponin RIGHT HEART CATH Systolic heart failure, unspecified HF chronicity (CMS/HCC) Elevated troponin Health MaintenanceDue DateLast DoneCommentsCT Nlvzvizgohmr97/02/1953olonoscopy 1952olorectal Cancer Tlpawpijc00/02/1953FIT-DNA1952FIT1952 FOBT1950Medicare Annual Wellness (AWV)1950 1835Ynrlfjgcpertt75/02/1953 Depression Nyfsdfaki50/02/1965Adult Kpwasfu4312/05/1974Zoster Vaccines (1 of 2) Pneumococcal Vaccine: 50+ Years (2 of 2 - PCV)07/14/2007 07/14/2006Fall Risk Bvpwjesdm57/02/2018COVID-19 Vaccine ( - season) 5002/27/2021, 02/27/2021, 02/06/2021, Additional history existsInfluenza Vaccine (#1), 09/02/2019, 07/31/2016, Additional history existsHIB VaccinesAged OutNo [...] Procedures Procedure NamePriorityDate/TimeAssociated DiagnosisCommentsECG 12 LEAD UNIT MPFTEFWDCAdlsybo66/06/2025 12:15 PM EST Elevated troponin from Last 3 Months Results * ECG 12 lead unit performed (09/08/2025 12:15 PM EST)Specimen (Source) Anatomical Location / LateralityCollection Method / VolumeCollection Time Received Time Narrative Authorizing ProviderResult TypeResult StatusAdam Yessenia [facility] ORDERABLESFinal Result from Last 3 Months Insurance Care Teams Team MemberRelationshipSpecialtyStart DateEnd Vik Oreilly MD [address] [facility] [place] [address] [facility]07/10/22
--- OUTSIDE RECORDS SUMMARY | 2025-09-12 12:33 | XMS_ITS | Encounter Summary ---
Author Organization [facility] Address [address] [place] [address] Care Team Providers Care Melting Operator Name Role Phone Vik Oreilly MD Primary Care Provider [phone] Encounter Details DateTypeDepartmentCare Team (Latest Contact Info)Nkvqanvmpny43/06/2025Orders Only [facility] Heart at [facility] [address] [place] [address] Cami Benson MA Congestive heart [...] file12/25/2023Sex and Gender InformationValueDate RecordedSex Assigned at ZmcqzVgkc03/06/2025 11:41 AM EST Legal ZqnVhtl3305/01/2022 9:50 PM EDTGender JtqakvqtFbpt44/06/2025 11:41 AM EST Sexual OrientationHeterosexual or Gmqttjft81/06/2025 11:41 AM ESTdocumented as of this encounter Functional Status * BPAnswerDate of XhlajxtkpbVskmpd628/7509/08/2025 11:51 AM Mary Parr MA * PulseAnswerDate of IuzwwizkdpXmdcqo9466 11:51 AM Mary Parr MA * Audit Alcohol ScreeningQuestionAnswerDate of AssessmentAuthoow often do you have a drink containing alcohol? 11:54 AM Mary Parr MAHow many standard drinks containing alcohol do you have on a typical day?0 09/08/2025 11:54 AM Mary Parr MA * Patient PositionAnswerDate of LgualpbiryJmolrbOykkcjp66/06/2025 11:51 AM Mary Bear MA * BPAnswerDate of GnamhyhfnyQmpmri159/7509/08/2025 11:51 AM Mary Parr MA * PulseAnswerDate of XophjktrdrDczmzv1303/06/2025 11:51 AM Mary Parr MA * RwN5RgxbevJqbm of CiskdyxpczIquwbp5907/06/2025 11:51 AM Mary Parr MA * BP LocationAnswerDate of AssessmentAuthorRkresge eye institute09/08/2025 11:51 AM Mary Bear MA * Audit Alcohol ScreeningQuestionAnswerDate of AssessmentAutSaint John's Hospitalow often do you have a drink containing alcohol? 11:54 AM Mary Parr MAHow many standard drinks containing alcohol do you have on a typical day?0 09/08/2025 11:54 AM Mary Parr MA * Patient PositionAnswerDate of XlxijaomsuNjhqpbWfowlwu69/06/2025 11:51 AM Mary Bear MA documented as [...] DateEnd Date Vik Oreilly MD [address] [facility] [address] [address] [facility] - General07/10/22documented as of this encounter
--- OUTSIDE RECORDS SUMMARY | 2025-09-12 12:33 | XMS_ITS | Clinical Summary ---
Author Organization [facility] [employer] tem Address [id number] [address] [place] [address] Care Team Providers Care Powder Cutting Operator Name Role Phone Vik Oreilly MD Primary Care Provider [phone] Allergies No known active allergies Medications MedicationSigDispense QuantityRefillsLast FilledStart DateEnd DateStatus oxyCODONE-acetaminophen (PERCOCET) 5-325 mg per tablet Take 1 tablet by mouth every 4 (four) hours as needed for pain.Active magnesium 30 mg tablet Take 30 mg by mouth 2 (two) times a day.Active sufaekrp-cxfj-RJ-calcium &mins (THERAGRAN-M) 9 mg iron-400 mcg tablet [...] times a week05/25/2020How often do you attend moravian or restorationist services?Never05/25/2020Do you belong to any clubs or organizations such as moravian groups, unions, fraternal or athletic groups, or [...] and heating?Not hard at all 05/25/2020PHQ-2AnswerDate RecordedTotal Gvqod387[facility] [place] of Occupational Health - Occupational Stress QuestionnaireAnswerDate [...] from medical appointments or from getting medications?Patient dnpevwtq51/23/2020In the past 12 months, has lack of transportation kept you from meetings, work, or from getting things needed for daily living?Patient ichaiqxm05/23/2020ChildcareAnswerDate RecordedDo problems getting children's zoo caretaker make it difficult for you to work or study?No05/25/2020 EmploymentAnswerDate RecordedDo you need help finding a local career center and/or a training program?No05/25/2020Purpose - LifeAnswerDate RecordedPurpose and direction in syfsYxuqrbg25/11/2021ex and Gender InformationValueDate RecordedSex Assigned at BirthNot on fileLegal TxvAytn1606/08/2015 11:26 AM EDT Gender IdentityNot on fileSexual OrientationNot on file Last Filed Vital Signs Vital SignReadingTime TakenCommentsBlood Bnktrude815/7409 1:13 PM EDT Cogdm9294 1:13 PM RCWXfpumkrscra23.9 ??C (98.4 ??F)07/06/2020 1:13 PM EDTRespiratory Jiym425407/06/2020 1:13 PM EDTOxygen Pcjbmonvrg79%06/15/2020 1:00 PM EDTInhaled Oxygen Concentration--Jgixls95.7 kg (193 lb 6 oz)07/06/2020 1:13 PM YGR894 lbs 6 toRcxewu290.2 cm (5' 7.01 )06/14/2020 1:12 PM EDTBody Mass Index 30.28006/14/2020 1:12 PM EDT Plan of Treatment Health MaintenanceDue DateLast DoneCommentsDepression Lljbrpvnb57/02/1965Tobacco Hzwrarhfh96/02/1965Adult BMI Wflyzpkpw61/02/1971DTaP,Tdap and Td Vaccines (1 - Tdap)1971Zoster (Shingles) Vaccine (1 of 2)2002Fall Risk Screening 2017Influenza Chlwnqm7207/04/2025RSV ( or age 60+ yrs) (1 - [...]
--- OUTSIDE RECORDS SUMMARY | 2025-09-12 12:33 | XMS_ITS | CCD ---
Author Organization [facility] CliniSyct Care Team Providers Care Drive In Theater Attendant Name Role Phone AMBER KIRBY Admitting Unavailable [...] HOY ., DR CROOKS Admitting Unavailable Daksha Doll Primary Care Physician [phone] Haroon Huntley Attending Unavailable Haroon Huntley Admitting Unavailable Haroon HUNTLEY Attending Unavailable Daksha Doll Referring Unavailable Haroon HUNTLEY Attending Unavailable MOUKARBELBRYCE Attending Unavailable AMYJIN Attending Unavailable Allergies Allergy ClassificationReported Allergen(s)Allergy TypeDate of OnsetReaction(s) Facility (1 source)black walnut pollen extractDrug AllergyThe [facility] (1 source)Hmg-Coa Reductase Inhibitors (Statins); Translations: [statins] Propensity to adverse reactions (disorder)[facility] Repository (1 source)No Known Medication Allergies; Translations: [No Known Medication Allergies]Propensity to adverse reactions (disorder)[facility] Repository Medications Current Medications MedicationDrug Class(es)DatesSig (Normalized)Sig (Original)aspirin 81 mg delayed release oral tablet (2 sources)Platelet Aggregation Inhibitor, Nonsteroidal Anti-inflammatory Drug Start: 82-78-2711iedz 1 tablet by mouth once dailyaspirin 81 mg Oral EC Tab 81 mg = 1 tab(s), Oral, Daily Start Date: 06/19/21 Status: Orderedatenolol 50 mg oral tablet (2 sources)beta-Adrenergic BlockerStart: 63-97-5766gfod 1 tablet by mouth once dailyatenolol 50 mg Tab 50 mg = 1 tab(s), Oral, Daily Start Date: 06/19/21 Status: OrderedOsteo Bi-Flex (2 sources)Start: 50-20-0977Zyiqp Bi-Flex Refill(s) 0 Start Date: 02/16/24 Status: Orderedezetimibe 10 mg oral tablet (2 sources)Dietary Cholesterol Absorption InhibitorStart: 25-28-3703umoq 1 tablet by mouth once dailyezetimibe 10 mg Tab 10 mg = 1 tab(s), Oral, Daily Start Date: 06/19/21 Status: OrderedFish Oils (2 sources)Start: 53-09-3137niwj 1200 mg by mouth once dailyFish Oil 1,200 mg, Oral, Daily Start Date: 06/19/21 Status: Orderedlisinopril 10 mg oral tablet (2 sources)Angiotensin Converting Enzyme InhibitorStart: 45-31-9496vydo 1 tablet by mouth once dailylisinopril 10 mg Tab 10 mg = 1 tab(s), Oral, Daily Start Date: 06/19/21 Status: OrderedMultivitamin preparation (2 sources)Start: 43-28-7725eeau 1 tablet by mouth once dailymultivitamin 1 tab(s), Oral, Daily, Refill(s) 0 Start Date: 02/16/24 Status: Orderedrosuvastatin calcium 10 mg oral tablet (2 sources)HMG-CoA Reductase InhibitorStart: 82-05-3188diku 1 tablet by mouth once dailyrosuvastatin 10 mg Tab 10 mg = 1 tab(s), Oral, Daily Start Date: 06/19/21 Status: Ordered Problems Active Problems Problem ClassificationProblemDateDocumented DateEpisodic/ChronicAcute cerebrovascular disease (2 sources)Cerebrovascular dklqogol15-27-4994RceogfuYzzqk myocardial infarction (2 sources)Myocardial lyxwbivglp16-08-5372LglqgttTdfuzeqz (2 sources)Sdftudff56-47-5175JmlpzqbDgwitfwybe heart failure; nonhypertensive (2 sources)Unspecified systolic (congestive) heart failure; Translations: [Unspecified systolic (congestive) heart failure]Onset: 21-14-6658Sayctco Coronary atherosclerosis and other heart disease (7 sources)Atherosclerotic heart disease of chilkoot coronary artery without angina pectoris; Translations: [Coronary arteriosclerosis]Onset: 08-19-2022 01-25-7842WnxymrtDdhhojlgvc and other anemia (2 sources)Anemia, unspecified; Translations: [Anemia, unspecified]Onset: 38-48-0432FxqibcgwWtubfjlb mellitus without complication (4 sources)Other abnormal glucose; Translations: [OTHER ABNORMAL GLUCOSE]Onset: 45-16-1091BexahwojZouetzsry of lipid metabolism (9 sources)Hyperlipidemia, unspecified; Translations: [Hyperlipidemia]Onset: 85-50-7363VyfxsbxDnojratni hypertension (5 sources)Essential (primary) hypertension; Translations: [Hypertensive disorder]Onset: 050274-15-7483RtdxunrRhxdrta and fatigue (1 source)Other fatigue; Translations: [OTHER FATIGUE]Onset: 43-85-7155Bacywcol Osteoarthritis (2 sources)Eidzodiibrivem83-96-2221EivhdzsRmihrbccbgrx (2 sources)Eywmqapdcift17-67-1998LxpbktzZuzav gastrointestinal disorders (2 sources)Occult blood in orjgzf15-24-3876HsdxfggnOxsba nutritional; endocrine; and metabolic disorders (2 sources)Body mass index 30+ - -09-1083FcccfryUoqtb nutritional; endocrine; and metabolic disorders (2 sources)Morbid -14-4680TfsnzihUldrd screening for suspected conditions (not mental disorders or infectious disease) (4 sources)Encounter for screening for malignant neoplasm of prostate; Translations: [Encounter for screening for malignant neoplasm of rectum]Onset: 04-68-1409UgdadnxrGupes skin disorders (2 sources)Hypertrophic condition of skin; Translations: [Other hypertrophic disorders of the skin]Onset: 67-33-7518StqvmksoKyhnu skin disorders (2 sources)Skin bpd14-16-9105ClaztroiElxz-; endo-; and myocarditis; cardiomyopathy (except that caused by tuberculosis or sexually transmitted disease) (2 sources)CardiomyopathyOnset: 585142-99-9329TeablolFyxtsrugkhj; intervertebral disc disorders; other back problems (2 sources)Degeneration of lumbar intervertebral jkiq33-25-8282Apedcbn Spondylosis; intervertebral disc disorders; other back problems (2 sources)Spinal stenosis of lumbar vizibl08-35-0891Bofpowkg Past or Other Problems Problem ClassificationProblemDateDocumented DateEpisodic/ChronicCoronary atherosclerosis and other heart disease (2 sources)Presence of aortocoronary bypass graft; Translations: [Presence of aortocoronary bypass graft]Onset: 09-96-5828JhajofxcJistb liver diseases (2 sources)Abnormal levels of other serum enzymes; Translations: [Abnormal levels of other serum enzymes]Onset: 58-52-0665Enrpyfmc Results Test NameValueInterpretationReference RangeFacilityOrders Onlyon 09-09-2025 Orders [id number] Omkar Delatorreelin Smith 1950 M Date Provider Department Center 09/09/2025 KYRA SANTIZO RONAL [facility] Family History Family history unknown: Yes Family Status - Relation Status Age at Mother Father AliveNormalUniRegency Hospital ToledoOffice Visiton 09-08-2025 Follow-up [id number] Gretchen Delatorre 1950 M Date Provider Department Center 09/08/2025 [id number] DALLAS RONAL [facility] Family History Family history unknown: Yes Family Status - Relation Status Age at Mother Father Alive Level of Service:80428 [place] OFFICE/OUTPATIENT ESTABLISHED HIGH MDM 40 MIN Reason for Visit and Comments: Follow-up [027345] - Patient is here today for a decreased EF and increased tropnins. Recent Echo and labs. Patient denies chest pain, palpitations/racing heart, dizziness/lightheaded, SOB/MASON with walking distance Previous [place] [Other] Cardiomyopathy [104] Hyperlipidemia [182] [place] [Other] Coronary Artery Disease [187] Shortness of Breath [364813] - SOB/MASON with walking 3 weeks ago the SOB increased Hypertension [641411] Atrial Fibrillation [80] Edema [3146942260] - Bilateral ankle swelling Congestive Heart Failure [127]NormalSelect Medical Specialty Hospital - [facility] North36on ----- Message ----- From: Bryce Palacios MD Sent: 03/27/2025 12:18 PM EDT To: Sunita Blanco MA His echo was ok, follow up as planned. Advised patient of Dr. Palacios's finding. Patient verbalized understanding.Premier HealthOrders Onlyon 45-82-8212Svhkyn [id number] Gretchen Delatorre 1950 M Date Provider Department Center 03/24/2025 [id number], [facility] RONAL [facility] Family History Family history unknown: YesNormalUniversCleveland Clinic Medina HospitalOffice Visit on 52-56-9973Vkkhxe-up [id number] Gretchen Delatorre 1950 M Date Provider Department Center 10/18/2024 367-BRYCE PALACIOS RONAL [facility] Family History Family history unknown: Yes Level of Service:50712 [place] OFFICE/OUTPATIENT ESTABLISHED LOW [facility] 20 [facility] HospitalPathology Noteon 85-13-6450Rzxqnbpil Note [id number]#1.00Mercy HealthAmbulatory Visit Summaryon 73-12-5423Qefcoypwky Visit Summary GRETCHEN DELATORRE :1950 Visit Date:03/02/2024 Ambulatory Visit Instructions Your Diagnosis Skin tag Your Care Team Attending Physician - ARIAN JAIME, Haroon Ellison Primary Care Physician - Daksha Doll MD This Is Your Medications List Contact [...] you for choosing us for your care. [facility] CenterGeneral [facility] Office/Clinic Noteon 90-83-2751Iexxknr Surgery Office/Clinic NoteChief Complaint in-office excisional biopsy [...] Recorded SARS-CoV-2 (COVID-19) mRNA BNT-162b2 vax 02/06/2021 RecordedNoSamaritan HospitalComment on above:Result Comment: Electronically Signed By: ARIAN JAIME, Haroon Cancino.br\Date and Time Signed: 03/02/24 15:16 EDTLon 03-02-2024L Specimen: [id number] Received: 03/03/24 Status: MICHELEL Keller Num: [id number] Spec Type: Surgical Subm Dr: Haroon Huntley MD FACS Tissues: A Skin-Other than Cyst, tag, debridement or plastic repair (RT CHEST WALL) Procedures: HE/4, Gross/Micro L4 Age/ Patient Sex Location Account Attending Physician Gretchen Delatorre 73/M LABELL [id number] Haroon Huntley MD FACS SPEC NUM: [id number] RECD: 03/03/24 STATUS: MICHELLE KELLER NUM: [id number] PIYUSH: 03/02/24- SUBM DR: Haroon Huntley MD FACS ENTERED: 03/03/[address] [facility] [address]: [facility] SPEC TYPE: Surgical DEPT: AIDEN WALLIS ORDERED: HE/4, Gross/Micro L4 ORDERED: HE/4, Gross/Micro L4 Pathological Diagnosis Skin lesion, right [...] skin tag over several years CPT Codes 30127 Specimen: [id number] Received: 03/03/24 Status: MICHELLE Keller Num: [id number] Spec Type: Surgical Subm Dr: Haroon Huntley MD FACS Tissues: A Skin-Other than Cyst, tag, debridement or plastic repair (RT CHEST WALL) Procedures: CASSANDRA/Lelo, Gross/Micro L4 Patient: Gretchen Delatorre [id number] (Continued) Signed (signature on file) Misael Erazo MD 03/04/[address] [place] [address] Physician GroupAmbulatory Visit Summaryon 54-30-3952Pxwjabmtgi Visit Summary GRETCHEN DELATORRE :1950 Visit Date:02/18/2024 Ambulatory Visit Instructions Your Care Team Attending Physician - ARIAN JAIME, Haroon Ellison Primary Care Physician - Afia JAIME, Daksha Referring Physician - Daksha Doll MD This Is Your Medications List aspirin [...] JAIME, Haroon Ellison Where: General Surgery Arian/Callie FigueroaSamaritan Hospital Facesheeton 37-31-9296Ubfrolgvi [id number]#1.00TIFFort Hamilton HospitalPhysician Referralon 60-72-1314Yilaghuei Referral [id number]#1.00TIFFort Hamilton HospitalPhysician Referralon 23-27-6036Lieijvzau Referral [id number]#1.00TIFFort Hamilton HospitalOCC BLD IMMUNO SCREENon 82-65-8820JHWAMZ BLOODPositiveAbnormalNEGATIVEThe [facility] HospitalComment on above:Performed By: #### CMP, CK, LIPID #### [facility] [address] [address] [address] Tyrell Brooks AUTO DIFFon 24-41-1278UJUN #0.0 103/ulNormal0.0-0.1The [facility] HospitalComment on above:Performed By: #### CBC #### [facility] [address] [address] [address] Tyrell CasillasBasophils/100 WBC (Bld)0.5 %Normal0.2-2.0[facility] Comment on above:Performed By: #### CBC #### [facility] [address] [address] [address] Tyrell Crenshaw #0.2 103/ulNormal0.0-0.7The [facility] HospitalComment on above: Performed By: #### CBC #### [facility] [address] [address] [address] Tyrell Cernaosinophils/100 WBC (Bld)2.6 %Normal0.9-7.0[facility] Comment on above:Performed By: #### CBC #### [facility] [address] [address] [address] Tyrell Cernarythrocyte distribution width (RBC) [Ratio]11.7 %Sdbppu57.0-15.0 The [facility] HospitalComment on above:Performed By: #### CBC #### [facility] [address] [place] [address] Dr. Tyrell CasillasHematocrit (Bld) [Volume fraction]39.9 %Critically low42.0-54.0 The [facility] HospitalComment on above:Performed By: #### CBC #### [facility] [address] [place] [address] Dr. Tyrell CasillasHemoglobin (Bld) [Mass/Vol]13.9 g/dLCritically low14.0-18.0The [facility] HospitalComment on above:Performed By: #### CBC #### [facility] [address] [place] [address] Dr. Tryell Bermeo #0.02 10e3/ulNormal0.00-0.03The [facility] HospitalComment on above:Performed By: #### CBC #### [facility] [address] [place] [address] Dr. Tyrell Bermeo %0.3 %Normal0.0-0.5The [facility] HospitalComment on above: Performed By: #### CBC #### [facility] [address] [place] [address] Dr. Tyrell Boyle #1.7 103/ulNormal1.2-3.8The [facility] HospitalComment on above:Performed By: #### CBC #### [facility] [address] [place] [address] Dr. Tyrell Lenzhocytes/100 WBC (Bld)28.1 %Hnkueh45.5-60.0The [facility] HospitalComment on above:Performed By: #### CBC #### [facility] [address] [place] [address] Dr. Tyrell BauerUAL DIFF REQNONormalThe [facility] HospitalComment on above: Performed By: #### CBC #### [facility] [address] [place] [address] Dr. Tyrell Perez (RBC) [Entitic mass]32.3 irObgupe54.9-34.0The [facility] HospitalComment on above:Performed By: #### CBC #### [facility] [address] [place] [address] Dr. Tyrell Villarreal (RBC) [Mass/Vol]34.8 g/yNJvkuig59.9-35.2The [facility] HospitalComment on above:Performed By: #### CBC #### [facility] [address] [place] [address] Dr. Tyrell Su (RBC) [Entitic vol]92.8 sDUpakef33.0-94.0The [facility] HospitalComment on above:Performed By: #### CBC #### [facility] [address] [place] [address] Dr. Tyrell Elizondo #0.5 103/ulNormal0.3-0.8The [facility] HospitalComment on above:Performed By: #### CBC #### [facility] [address] [place] [address] Dr. Tyrell Patelocytes/100 WBC (Bld)8.5 %Normal1.7-12.0The [facility] Comment on above:Performed By: #### CBC #### [facility] [address] [place] [address] Dr. Tyrell Willson #3.5 103/ulNormal1.4-6.5The [facility] HospitalComment on above:Performed By: #### CBC #### [facility] [address] [place] [address] Dr. Tyrell Oconnorutrophils/100 WBC (Bld)60.0 %Vwkclc94.0-75.0The [facility] HospitalComment on above:Performed By: #### CBC #### [facility] [address] [place] [address] Dr. Tyrell Chowdhurylet mean volume (Bld) [Entitic vol]8.3 fLCritically low 9.5-13.5The [facility] HospitalComment on above:Performed By: #### CBC #### [facility] [address] [place] [address] Dr. Tyrell CasillasPLT200 103/ajMeltxo700-641Dxe [facility] HospitalComment on above: Performed By: #### CBC #### [facility] [address] [place] [address] Dr. Tyrell CasillasRBC4.30 106/ulCritically low4.70-6.10The [facility] on above:Performed By: #### CBC #### [facility] [address] [address] [address] Tyrell CasillasWBC5.9 103/ulNormal4.0-11.0The [facility] on above: Performed By: #### CBC #### [facility] [address] [address] [address] Tyrell CasillasCPKon 28-65-3366KC [Catalytic activity/Vol]505 U/LCritically high 39-308The [facility] on above:Performed By: #### CK #### [facility] [address] [place] [address] Dr. Tyrell CasillasFREE T3on 51-10-3594VWYE T32.98 pg/mlLNormal2.18-3.98The [facility] on above:Performed By: #### T4, CMP, TSH, FT3, LIPID #### [facility] [address] [place] [address] Dr. Tyrell CasillasGLYCOHEMOGLOBIN A1Con 36-96-9371QWN RECOMMENDATIONSEE BELOWNormal The [facility] HospitalCommckenzie memorial hospital on above:Result Comment: ADA RECOMMENDED LIMIT 4.0 - 6.0 ADA THERAPEUTIC TARGET < 7.0 ACTION SUGGESTED > 7.0Performed By: #### CMP, CK, LIPID #### [facility] [address] [place] [address] Dr. Tyrell CasillasGlucose [Mass/Vol]131 mg/dLNormalThe [facility] on above:Performed By: #### CMP, CK, LIPID #### [facility] [address] [address] [address] Tyrell CasillasHbA1c (Bld) [Mass fraction]6.2 %Normal4.5-6.2The [facility] on above:Performed By: #### CMP, CK, LIPID #### [facility] [address] [place] [address] Dr. Tyrell CasillasLIPID PROFILEon [id number]-HDL RATIO NORMSShelby Memorial HospitalComment on above:Result Comment: 3.3 - 4.4 LOW RISK 4.4 - 7.1 AVERAGE RISK 7.1 - 11.0 MODERATE RISK >11.0 HIGH RISKPerformed By: #### T4, CMP, TSH, FT3, LIPID #### [facility] [address] [address] [address] Tyrell CasillasCholesterol [Mass/Vol]150 mg/dLNormal<=200[facility] Comment on above:Performed By: #### T4, CMP, TSH, FT3, LIPID #### [facility] [address] [address] [address] Tyrell CasillasCholesterol in HDL [Mass/Vol]42 mg/zAUwegjw95-41VhrWestern Reserve HospitalComment on above:Performed By: #### T4, CMP, TSH, FT3, LIPID #### [facility] [address] [address] [address] Tyrell Harperesterol in LDL [Mass/Vol]84.2 mg/dLNoUC Medical CenterComment on above:Performed By: #### T4, CMP, TSH, FT3, LIPID #### [facility] [address] [address] [address] Tyrell Rosario.total/Cholesterol in HDL [Mass ratio]3.6 {ratio} NormalWestern Reserve HospitalComment on above:Performed By: #### T4, CMP, TSH, FT3, LIPID #### [facility] [address] [place] [address] Dr. Tyrell Beaver NORMAL> or = 60 mg/dl - LOW CARDIOVASCULAR RISK <40 mg/dl - HIGH CARDIOVASCULAR RISKChillicothe VA Medical CenterComment on above:Performed By: #### T4, CMP, TSH, FT3, LIPID #### [facility] [address] [place] [address] Dr. Tyrell Garcia CALC NORMALSEE The Christ HospitalComment on above:Result Comment: <100 mg/dl OPTIMAL 100 - 129 mg/dl NEAR OR ABOVE OPTIMAL 130 - 159 mg/dl BORDERLINE HIGH 160 - 189 mg/dl HIGH >190 mg/dl VERY HIGH Performed By: #### T4, CMP, TSH, FT3, LIPID #### [facility] [address] [address] [address] Tyrell CasillasTriglyceride [Mass/Vol]119 mg/dLNormal<=150The [facility] Comment on above:Performed By: #### T4, CMP, TSH, FT3, LIPID #### [facility] [address] [address] [address] Tyrlel CasillasVLDL CALC23.8 mg/dLNormalThe [facility] HospitalComment on above: Performed By: #### T4, CMP, TSH, FT3, LIPID #### [facility] [address] [place] [address] Dr. Tyrell CasillasPRODiego 14(COMP METB)on 92-25-7386Oyymwyn [Mass/Vol]4.5 g/dLNormal 3.4-5.0The [facility] HospitalComment on above:Performed By: #### T4, CMP, TSH, FT3, LIPID #### [facility] [address] [address] [address] Tyrell CasillasAlbumin/Globulin [Mass ratio]1.1 {ratio}NormalThe [facility] HospitalComment on above:Performed By: #### T4, CMP, TSH, FT3, LIPID #### [facility] [address] [address] [address] Tyrell Haile [Catalytic activity/Vol]57 U/DWnappl56-637Ilh [facility] Main Campusment on above:Performed By: #### T4, CMP, TSH, FT3, LIPID #### [facility] [address] [address] [address] Tyrell Martin [Catalytic activity/Vol]49 U/PEqogim57-66Cor [facility] Campusment on above:Performed By: #### T4, CMP, TSH, FT3, LIPID #### [facility] [address] [address] [address] Tyrell Whittaker gap [Moles/Vol]12.7 mmol/LNormalWestern Reserve Hospital Comment on above:Performed By: #### T4, CMP, TSH, FT3, LIPID #### [facility] [address] [address] [address] Tyrell CasillasAST [Catalytic activity/Vol]35 U/WXdnxla71-06ZseWestern Reserve HospitalComment on above:Performed By: #### T4, CMP, TSH, FT3, LIPID #### [facility] [address] [address] [address] Tyrell CasillasBilirubin [Mass/Vol]0.4 mg/dLNormal0.2-1.0[facility] Comment on above:Performed By: #### T4, CMP, TSH, FT3, LIPID #### [facility] [address] [place] [address] Dr. Tyrell CasillasCalcium [Mass/Vol]9.5 mg/dLNormal8.5-10.1The [facility] Comment on above:Performed By: #### T4, CMP, TSH, FT3, LIPID #### [facility] [address] [place] [address] Dr. Tyrell CasillasChloride [Moles/Vol]106 mmol/EWnonsq48-847FvnWestern Reserve Hospital Comment on above:Performed By: #### T4, CMP, TSH, FT3, LIPID #### [facility] [address] [place] [address] Dr. Tyrell CasillasCO2 [Moles/Vol]27.4 mmol/GDxkqff14.0-32.0The [facility] Comment on above:Performed By: #### T4, CMP, TSH, FT3, LIPID #### [facility] [address] [place] [address] Dr. Tyrell CasillasCreatinine [Mass/Vol]0.96 mg/dLNormal0.70-1.30The [facility] HospitalComment on above:Performed By: #### T4, CMP, TSH, FT3, LIPID #### [facility] [address] [place] [address] Dr. Santillan ChangEGFR-AF SOLOMON ISLANDER>60Normal>=60The [facility] Campusment on above:Performed By: #### T4, CMP, TSH, FT3, LIPID #### [facility] [address] [place] [address] Dr. Tyrell Jimenez-NON AF SOLOMON ISLANDER>60Normal>=60The [facility] Campusment on above:Performed By: #### T4, CMP, TSH, FT3, LIPID #### [facility] [address] [place] [address] Dr. Tyrell CasillasGlobulin (S) [Mass/Vol]4.0 g/dLNormalThe [facility] HospitalComment on above:Performed By: #### T4, CMP, TSH, FT3, LIPID #### [facility] [address] [place] [address] Dr. Tyrell CasillasGlucose [Mass/Vol]101 mg/tDZtjstu71-711TqhWestern Reserve Hospital Comment on above:Performed By: #### T4, CMP, TSH, FT3, LIPID #### [facility] [address] [place] [address] Dr. Tyrell CasillasPotassium [Moles/Vol]4.1 mmol/LNormal3.5-5.1[facility] Comment on above:Performed By: #### T4, CMP, TSH, FT3, LIPID #### [facility] [address] [place] [address] Dr. Tyrell CasillasProtein [Mass/Vol]8.5 g/dLCritically high6.4-8.2[facility] on above:Performed By: #### T4, CMP, TSH, FT3, LIPID #### [facility] [address] [place] [address] Dr. Tyrell CasillasSodium [Moles/Vol]142 mmol/RLohpwf293-028NduWestern Reserve Hospital Comment on above:Performed By: #### T4, CMP, TSH, FT3, LIPID #### [facility] [address] [place] [address] Dr. Tyrell CasillasUrea nitrogen [Mass/Vol]18.0 mg/dLNormal7.0-18.0The [facility] on above:Performed By: #### T4, CMP, TSH, FT3, LIPID #### [facility] [address] [place] [address] Dr. Tyrell CasillasUrea nitrogen/Creatinine [Mass ratio]18.8 mg/mgNoUC Medical CenterCommckenzie memorial hospital on above:Performed By: #### T4, CMP, TSH, FT3, LIPID #### [facility] [address] [place] [address] Dr. Tyrell Guo4on 54-41-1873B7 [Mass/Vol]5.60 ug/dLNormal4.50-12.10The [facility] HospitalCommckenzie memorial hospital on above:Performed By: #### T4, CMP, TSH, FT3, LIPID #### [facility] [address] [place] [address] Dr. Tyrell Xiao 54-91-1591ZZH6.892 uIU/mLNormal0.358-3.740The [facility] on above:Performed By: #### T4, CMP, TSH, FT3, LIPID #### [facility] [address] [place] [address] Dr. Tyrell Iglesias 44-83-4289NB [Catalytic activity/Vol]444 U/LCritically high 39-308Western [facility] HospitalCommckenzie memorial hospital on above:Performed By: #### CMP, CK, LIPID #### [facility] [address] [place] [address] Dr. Tyrell CasillasLIPID PROFILEon 73-05-8815OSOD-HDL RATIO NORMSShelby Memorial HospitalCommckenzie memorial hospital on above:Result Comment: 3.3 - 4.4 LOW RISK 4.4 - 7.1 AVERAGE RISK 7.1 - 11.0 MODERATE RISK >11.0 HIGH RISKPerformed By: #### CMP, CK, LIPID #### [facility] [address] [place] [address] Dr. Tyrell CasillasCholesterol [Mass/Vol]132 mg/dLNormal<=200[facility] Comment on above:Performed By: #### CMP, CK, LIPID #### [facility] [address] [address] [address] Tyrell CasillasCholesterol in HDL [Mass/Vol]39 mg/dLCritically wef27-40Ccg [facility] on above:Performed By: #### CMP, CK, LIPID #### [facility] [address] [address] [address] Tyrell CasillasCholesterol in LDL [Mass/Vol]72.8 mg/dLNoUC Medical CenterComment on above:Performed By: #### CMP, CK, LIPID #### [facility] [address] [address] [address] Tyrell Harperesterbg.total/Cholesterol in HDL [Mass ratio]3.4 {ratio} NormalWestern Reserve HospitalComment on above:Performed By: #### CMP, CK, LIPID #### [facility] [address] [place] [address] Dr. Tyrell Beaver NORMAL> or = 60 mg/dl - LOW CARDIOVASCULAR RISK <40 mg/dl - HIGH CARDIOVASCULAR RISKNoUC Medical CenterComment on above:Performed By: #### CMP, CK, LIPID #### [facility] [address] [address] [address] Tyrell Garcia CALC NORMALSEE BELOWChillicothe VA Medical CenterComment on above:Result Comment: <100 mg/dl OPTIMAL 100 - 129 mg/dl NEAR OR ABOVE OPTIMAL 130 - 159 mg/dl BORDERLINE HIGH 160 - 189 mg/dl HIGH >190 mg/dl VERY HIGH Performed By: #### CMP, CK, LIPID #### [facility] [address] [place] [address] Dr. Tyrell CasillasTriglyceride [Mass/Vol]101 mg/dLNormal<=150[facility] Comment on above:Performed By: #### CMP, CK, LIPID #### [facility] [address] [place] [address] Dr. Tyrell CasillasVLDL CALC20.2 mg/dLNoUC Medical CenterComment on above: Performed By: #### CMP, CK, LIPID #### [facility] [address] [address] [address] Tyrell CasillasPROF 14(COMP METB)on 19-54-7387Skwyfex [Mass/Vol]4.4 g/dLNormal 3.4-5.0The [facility] HospitalComment on above:Performed By: #### CMP, CK, LIPID #### [facility] [address] [place] [address] Dr. Tyrell CasillasAlbumin/Globulin [Mass ratio]1.3 {ratio}NormalThe The [facility] HospitalComment on above:Performed By: #### CMP, CK, LIPID #### [facility] [address] [address] [address] Tyrell Haile [Catalytic activity/Vol]55 U/KLsrfsz44-809She [facility] HospitalComment on above:Performed By: #### CMP, CK, LIPID #### [facility] [address] [place] [address] Dr. Tyrell Martin [Catalytic activity/Vol]48 U/ERixthc94-05Fwr [facility] HospitalComment on above:Performed By: #### CMP, CK, LIPID #### [facility] [address] [address] [address] Tyrell Whittaker gap [Moles/Vol]12.1 mmol/LNormalThe [facility] Comment on above:Performed By: #### CMP, CK, LIPID #### [facility] [address] [place] [address] Dr. Tyrell CasillasAST [Catalytic activity/Vol]35 U/KKhkpjq60-21Dzw [facility] HospitalComment on above:Performed By: #### CMP, CK, LIPID #### [facility] [address] [place] [address] Dr. Tyrell CasillasBilirubin [Mass/Vol]0.4 mg/dLNormal0.2-1.0The [facility] Comment on above:Performed By: #### CMP, CK, LIPID #### [facility] [address] [place] [address] Dr. Tyrell CasillasCalcium [Mass/Vol]9.0 mg/dLNormal8.5-10.1The [facility] Comment on above:Performed By: #### CMP, CK, LIPID #### [facility] [address] [address] [address] Tyrell CasillasChloride [Moles/Vol]106 mmol/HOjhvhz96-094UvrWestern Reserve Hospital Comment on above:Performed By: #### CMP, CK, LIPID #### [facility] [address] [address] [address] Tyrell CasillasCO2 [Moles/Vol]25.0 mmol/QZyiuhy52.0-32.0[facility] Comment on above:Performed By: #### CMP, CK, LIPID #### [facility] [address] [place] [address] Dr. Tyrell CasillasCreatinine [Mass/Vol]0.85 mg/dLNormal0.70-1.30[facility] HospitalComment on above:Performed By: #### CMP, CK, LIPID #### [facility] [address] [place] [address] Dr. Tyrell CernaGFR-AF SOLOM[place] ISLANDER>60Normal>=60The [facility] HospitalComment on above:Performed By: #### CMP, CK, LIPID #### [facility] [address] [place] [address] Dr. Tyrell Jimenez-NON AF [place]LANDER>60Normal>=60The [facility] HospitalComment on above:Performed By: #### CMP, CK, LIPID #### [facility] [address] [place] [address] Dr. Tyrell CasillasGlobulin (S) [Mass/Vol]3.4 g/dLNormalThe [facility] HospitalComment on above:Performed By: #### CMP, CK, LIPID #### [facility] [address] [place] [address] Dr. Tyrell CasillasGlucose [Mass/Vol]106 mg/hYDretyj00-824MplWestern Reserve Hospital Comment on above:Performed By: #### CMP, CK, LIPID #### [facility] [address] [place] [address] Dr. Tyrell CasillasPotassium [Moles/Vol]4.1 mmol/LNormal3.5-5.1The [facility] Comment on above:Performed By: #### CMP, CK, LIPID #### [facility] [address] [address] [address] Tyrell CasillasProtein [Mass/Vol]7.8 g/dLNormal6.4-8.2[facility] Comment on above:Performed By: #### CMP, CK, LIPID #### [facility] [address] [address] [address] Tyrell CasillasSodium [Moles/Vol]139 mmol/MInburx129-455JxjWestern Reserve Hospital Comment on above:Performed By: #### CMP, CK, LIPID #### [facility] [address] [place] [address] Dr. Tyrell CasillasUrea nitrogen [Mass/Vol]15.0 mg/dLNormal7.0-18.0[facility] HospitalComment on above:Performed By: #### CMP, CK, LIPID #### [facility] [address] [place] [address] Dr. Tyrell Watts nitrogen/Creatinine [Mass ratio]17.6 mg/mgNormalThLima Memorial HospitalComment on above:Performed By: #### CMP, CK, LIPID #### [facility] [address] [place] [address] Dr. Tyrell CasillasCoquinton Summaryon 99-80-1987Lzbbux SummaryCODING DATE: 05/31/2020 [facility] STATUS: Home PAYOR: Medicare MC [...] By: Eugenie George Date Saved: 05/31/2020 01:32 [facility] HospitalProvider Ord[place] 10-45-2502Jnnayrti [id number]#1.00[facility] HospitalCoding Summaryon 53-91-8579Vhlwxp SummaryCODING DATE: 05/19/2020 [facility] STATUS: Home PAYOR: Medicare MC APC DESCRIPTION 5115 Level 5 Musculoskeletal Procedures ADMIT DX: REASON FOR VISIT DX: M16.11 Unilateral primary osteoarthritis, right hip FINAL DX: PRINCIPAL: M16.11 Unilateral primary osteoarthritis, right hip SECONDARY: I10 Essential (primary) hypertension 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 Revised Coded By: Nicci eKe Revised Date Saved: 05/18/2020 12:22 [facility] HospitalConsent Formson 91-85-0281Nwajbag [id number]#1.00[facility] HospitalMedication Managementon 00-46-2243Mqiqdeabco Management [id number]#1.00[facility] Outside Recordson 68-92-5918Ueyfzmq Records [id number]#1.00[facility] Provider Orderson 33-09-0298Qnenuihk Orders [id number]#1.00[facility] Telemetry Stripson 90-56-9790Dlfjhaiij Strips [id number]#1.00OTGTIFFNoPomerene Hospital.Auto Diff 1on 79-95-4610Dchv Terry %7 %Normal1-12[facility] HospitalComment on above: Performed By: #### [id number], 91407757, [id number] #### [facility] (DEFAULT) [address] [place] [address] 71594Sotf Abs#0.0 g52Rgcstr8.0-0.2Mpremier health upper [facility] HospitalComment on above:Performed By: #### 4736131, 28172916, [id number] #### [facility] (DEFAULT) [address] [place] [address] 35905Bnxkunzpr/100 WBC (Bld)0.2 %Normal0.2-2.0[facility] Hospital Comment on above:Performed By: #### 6520422, 62458716, [id number] #### [facility] (DEFAULT) [address] [place] [address] 60298Wml Abs#0.1 o76Dprrea6.0-0.4[facility] HospitalComment on above:Performed By: #### 1444292, 57712009, [id number] #### [facility] (DEFAULT) [address] [place] [address] 50966Ciaonjhaasv/100 WBC (Bld)1.5 %Normal0.9-4.0[facility] HospitalComment on above:Performed By: #### 6370307, 65117954, [id number] #### [facility] (DEFAULT) [address] [place] [address] 76009Meubijskuze (Bld) [#/Vol]1.3 x47Siptai6.3-2.9[facility] HospitalComment on above:Performed By: #### 3565019, 83453696, [id number] #### [facility] (DEFAULT) [address] [place] [address] 80957Kttqkcbvuyd/100 WBC (Bld)15 %Bdxnrw84-80Cxliavmk Hospital Comment on above:Performed By: #### 6447352, 02932969, [id number] #### [facility] (DEFAULT) [address] [place] [address] 96154Ixjc Abs#0.6 s20Yqtjxe3.0-0.8[facility] HospitalComment on above:Performed By: #### 7825680, 95295617, [id number] #### [facility] (DEFAULT) [address] [place] [address] 63734Utey Abs#6.4 b00Yydnfu6.5-9.2Magrs[facility] lima HospitalComment on above:Performed By: #### 6839272, 15386487, [id number] #### [facility] (DEFAULT) [address] [place] [address] 12124Zxcrzdooajk/100 WBC (Bld)76 %Nmpjui87-28Udvpnagi Hospital Comment on above:Performed By: #### 5740498, 83965935, [id number] #### [facility] (DEFAULT) [address] [place] [address] 55286NVS w/ Auto Diffon 81-06-8016Pjvfekizddh distribution width (RBC) [Ratio]11.9 %Laphdi78.5-15.0[facility] HospitalComment on above: Performed By: #### 7153180, 77911521, [id number] #### [facility] (DEFAULT) [address] [place] [address] 42488Bzxmjclsjf (Bld) [Volume fraction]26.9 %Low34.8-51.9 [facility] HospitalComment on above:Performed By: #### 2240659, 93881144, [id number] #### [facility] (DEFAULT) [address] [place] [address] 16779Hwwrshiwjh (Bld) [Mass/Vol]9.2 g/dLLow11.8-17.7[facility] HospitalComment on above:Performed By: #### 1301252, 67359082, [id number] #### [facility] (DEFAULT) [address] [place] [address] 22820Dlt Diff?AutoNormalWooster Community Hospital HospitalComment on above: Performed By: #### 2830891, 33292145, [id number] #### [facility] (DEFAULT) [address] [place] [address] 40232WIK (RBC) [Entitic mass]32 pxXgmpsp78-09Civvbwlq Hospital Comment on above:Performed By: #### 0171214, 48473110, [id number] #### [facility] (DEFAULT) [address] [place] [address] 54313RSIK (RBC) [Mass/Vol]34 g/dWAfcrdj64-88Jpytkzgh Hospital Comment on above:Performed By: #### 0806427, 01309136, [id number] #### [facility] (DEFAULT) [address] [place] [address] 04998BTX (RBC) [Entitic vol]94 cPReqygj39-048Grizabjh Hospital Comment on above:Performed By: #### 9226132, 89330295, [id number] #### [facility] (DEFAULT) [address] [place] [address] 22188Omzultwj mean volume (Bld) [Entitic vol]9.4 fLNormal 6.3-10.2Mprem[facility] HospitalComment on above:Performed By: #### 1438751, 04141073, [id number] #### [facility] (DEFAULT) [address] [place] [address] 27061Cipjsfyem (Bld) [#/Vol]203 u95Ilepnp964-317Htjroydb HospitalComment on above:Performed By: #### 2154965, 40265540, [id number] #### [facility] (DEFAULT) [address] [place] [address] 62868CCB (Bld) [#/Vol]2.87 g45Suv8.70-5.30[facility] Comment on above:Performed By: #### 0417121, 03244853, [id number] #### [facility] (DEFAULT) [address] [place] [address] 74596VKJ (Bld) [#/Vol]8.5 i44Fkkodb8.5-10.5[facility] Comment on above:Performed By: #### 0722134, 52014506, [id number] #### [facility] (DEFAULT) [address] [place], [place] [address]Tuulezipe Noteon 35-73-1924Jswknkjut NoteEducation Materials POST OPERATIVE TOTAL HIP DISCHARGE [...] can be done to rule of a DVT.[facility] HospitalExtra [facility] 43-05-6456Httu [facility] Medical CenterComment on above:Performed By: #### 1377692, 68597453, [id number] #### [facility] (DEFAULT) [address] [place] [address] 14701Nztawrulp Patient Summaryon 40-66-0467Crrkczhol Patient Summary[address] [address] Patient Discharge Instructions Name: GRETCHEN DELATORRE : 1950 Patient Address: [address] [place] [address] [address] [address] Primary Care Provider: Name: DAKSHA DOLL After you are discharged if you find you have any questions, please, call [phone] ext [phone] to speak to a nurse. Discharge Diagnosis: Primary osteoarthritis of right hip Prescription Information: If you have been given a prescription for narcotics, seek immediate medical attention if you have any difficulty breathing or any sudden status changes such as confusion andsleepiness. If you or anyone you know is experiencing suicidal thoughts, mental health, alcohol and/or drug addiction problems; contact the [facility] 26/05 Crisis Hotline -Text 4HOPE to 314574. If you received any narcotics, sedation, or [...] business decisions or sign any legal documents [facility] would like to thank you for allowing us to assist you with your healthcare needs.The following includes patient education materials and information regarding your injury/illness. GRETCHEN DELATORRE has been given the following list of follow-up instructions, prescriptions, and patient education materials: Follow-up Instructions With: Address: When: Bairon Win [address] [facility], [facility] [address] [place] [address] Business (2) 05/25/2020 2:00 PM With: Address: When: DAKSHA AFIA [address] [place] [address] [place] [address] Business (1) Medications During the [...] Centers for Disease Control and Prevention July 2014[facility] Nutrition Noteon 60-95-3212Nisidjpnq NotePt eating well avg 70-100% of meals and taking supplements as ordered. No new wts. Labs reviewed, post op anemia noted. No new rec'd at this time. Will continue to follow.[facility] Pharmacy Noteon 78-58-2094Ebycgplz NoteI have personally reviewed the patient's current [...] Echavarria [Verified on: 05/17/2020 08:32 EDT] Eliezer [facility]chavarriaA[facility] Note - Nurseon 05-17-2020 Progress Note [...] [Verified on: 05/17/2020 17:30 EDT] Patricia Bustillos [facility]Ge[facility] Note-Physicianon 05-17-2020 Progress Note-PhysicianDATE OF POSTOPERATIVE [...] Win's office. Bert Aguila DO JOB #: [id number] bk [Electronically Signed on: 05/18/2020 11:35 EDT] BERT AGUILA DO [Verified on: 05/18/2020 11:35 EDT] BERT AGUILA DO [Transcribed on: 05/17/2020 14:48 EDT] [facility].Auto Diff 1on 52-25-4813Mxxd Terry %9 %Normal1-12 [facility] HealthcareComment on above:Performed By: #### [id number], 03430584, [id number] #### [facility] (DEFAULT) [address] [place] [address] 90033Ccdd Abs#0.0 e47Fjvbnt6.0-0.2[facility] HospitalComment on above:Performed By: #### 8069840, 32182847, [id number] #### [facility] (DEFAULT) [address] [place] [address] 87402Mfmibcpdh/100 WBC (Bld)0.1 %Low0.2-2.0[facility] Hospital Comment on above:Performed By: #### 9323906, 95594101, [id number] #### [facility] (DEFAULT) [address] [place] [address] 42657Yrn Abs#0.0 x34Leiscp7.0-0.4[facility] HospitalComment on above:Performed By: #### 0805211, 72864570, [id number] #### [facility] (DEFAULT) [address] [place] [address] 81226Zwnspxgbqbs/100 WBC (Bld)0.2 %Low0.9-4.0[facility] Hospital Comment on above:Performed By: #### 6793864, 60219667, [id number] #### [facility] (DEFAULT) [address] [place] [address] 16114Braldmnnaee (Bld) [#/Vol]1.8 q85Usorkq2.3-2.9[facility] HospitalComment on above:Performed By: #### 9689048, 28926286, [id number] #### [facility] (DEFAULT) [address] [place] [address] 73986Wkkumjwbiog/100 WBC (Bld)14 %Yqmwcp72-64Giyvgpig Hospital Comment on above:Performed By: #### 7176186, 45712978, [id number] #### [facility] (DEFAULT) [address] [place] [address] 29504Xppt Abs#1.1 t09Fmin3.0-0.8[facility] HospitalComment on above:Performed By: #### 4673289, 16368704, [id number] #### [facility] (DEFAULT) [address] [place] [address] 36003Loza Abs#9.9 w55Stzx8.5-9.2Mprem[facility] health [facility] HospitalComment on above:Performed By: #### 1669475, 92414634, [id number] #### [facility] (DEFAULT) [address] [place] [address] 46292Kxnztwghrto/100 WBC (Bld)77 %Yersrd00-02Jmzcehxx Hospital Comment on above:Performed By: #### 7865940, 58694167, 6699874890 #### [facility] (DEFAULT) [address] [place] [address] 12815FAW w/ Auto Diffon 44-13-2688Larojjaultg distribution width (RBC) [Ratio]12.1 %Saupsj23.5-15.0Uk HealthcareComment on above: Performed By: #### 7468544, 25354599, [id number] #### [facility] (DEFAULT) [address] [place] [address] 12251Akuhksvgmo (Bld) [Volume fraction]30.8 %Low34.8-51.9 [facility] HealthcareComment on above:Performed By: #### 9484107, 52364205, [id number] #### [facility] (DEFAULT) [address] [place] [address] 08451Vuotdbxbwd (Bld) [Mass/Vol]10.5 g/dLLow11.8-17.7[facility] HospitalComment on above:Performed By: #### 4405080, 98782234, [id number] #### [facility] (DEFAULT) [address] [place] [address] 95286Hzr Diff?AutoNormalWooster Community Hospital HospitalComment on above: Performed By: #### 0592557, 01670014, [id number] #### [facility] (DEFAULT) [address] [place] [address] 30420WSL (RBC) [Entitic mass]32 ynLrczqu31-27Khvithqt Hospital Comment on above:Performed By: #### 8399456, 21748454, [id number] #### [facility] (DEFAULT) [address] [place] [address] 18543CPXY (RBC) [Mass/Vol]34 g/dOTkjgaa91-74Gcxznqmz Hospital Comment on above:Performed By: #### 4279055, 27962997, [id number] #### [facility] (DEFAULT) [address] [place] [address] 87946ZBB (RBC) [Entitic vol]93 vDKdqdgq72-133Nycfiuqr Hospital Comment on above:Performed By: #### 9122440, 73030020, [id number] #### [facility] (DEFAULT) [address] [place] [address] 69345Ajdocwnc mean volume (Bld) [Entitic vol]9.2 fLNormal 6.3-10.2MLakeHealth TriPoint Medical CenterComment on above:Performed By: #### 6162440, 44531585, 5854540282 #### [facility] (DEFAULT) [address] [place] [address] 12803Hxjjrhofo (Bld) [#/Vol]238 z57Fqfmqz674-400Lxwfbfbk HospitalComment on above:Performed By: #### 8070349, 99191045, 1109264715 #### [facility] (DEFAULT) [address] [place] [address] 82380NCR (Bld) [#/Vol]3.31 b66Fdf5.70-5.30[facility] Comment on above:Performed By: #### 2540084, 50679856, [id number] #### [facility] (DEFAULT) [address] [place] [address] 26036HDL (Bld) [#/Vol]12.9 t57Nxjf2.5-10.5[facility] Comment on above:Performed By: #### 3947535, 31528654, 2637407943 #### [facility] (DEFAULT) [address] [place] [address] 29200Aeptnick Note-Physicianon 99-73-3947Yvjstubq Note-PhysicianDATE OF POSTOPERATIVE ORTHOPEDIC PROGRESS NOTE: 05/16/2020 [...] PROGNOSIS: Good. Bert Aguila DO JOB #: [id number] bk [Electronically Signed on: 05/17/2020 11:24 EDT] BERT AGUILA DO [Verified on: 05/17/2020 11:24 EDT] BERT AGUILA DO [Transcribed on: 05/16/2020 13:06 EDT] [facility].Auto Diff 1on 96-29-0634Ogzo Terry %1 %Normal1-12 [facility] HospitalComment on above:Performed By: #### 4281321, 33299831, [id number] #### [facility] (DEFAULT) [address] [place] [address] 73019Athj Abs#0.0 e81Zbrvzw2.0-0.2[facility] HospitalComment on above:Performed By: #### 1396828, 32746434, [id number] #### [facility] (DEFAULT) [address] [place] [address] 82339Rgqrdkhkr/100 WBC (Bld)0.1 %Low0.2-2.0[facility] Comment on above:Performed By: #### 0904314, 61186132, [id number] #### [facility] (DEFAULT) [address] [place] [address] 27063Wli Abs#0.0 y39Doowob5.0-0.4[facility] HospitalComment on above:Performed By: #### 5721706, 85247734, [id number] #### [facility] (DEFAULT) [address] [place] [address] 31918Yfmwncwiedq/100 WBC (Bld)0.1 %Low0.9-4.0[facility] Hospital Comment on above:Performed By: #### 6047518, 92227680, [id number] #### [facility] (DEFAULT) [address] [place] [address] 20993Rpspnkbmbxa (Bld) [#/Vol]0.4 r66Yri8.3-2.9[facility] HospitalComment on above:Performed By: #### 0497677, 53580121, [id number] #### [facility] (DEFAULT) [address] [place] [address] 92702Uwmmsxrrhai/100 WBC (Bld)4 %Ebf76-00HlifobhhUk Healthcare Comment on above:Performed By: #### 5205654, 58108901, [id number] #### [facility] (DEFAULT) [address] [place] [address] 19055Wsut Abs#0.2 f32Omarbc2.0-0.8[facility] HospitalComment on above:Performed By: #### 3951860, 79717204, [id number] #### [facility] (DEFAULT[facility] [address] [place] [address] 36104Ejvp Abs#10.0 l56Sorb1.5-9.2[facility] HospitalComment on above:Performed By: #### 3046681, 41888528, [id number] #### [facility] (DEFAULT) [address] [place] [address] 88977Zlqxvezykkt/100 WBC (Bld)94 %Twvz95-19Sowpdtpa Hospital Comment on above:Performed By: #### 7102637, 31307188, [id number] #### [facility] (DEFAULT) [address] [place] [address] 75502Udhvecfwfo Noteon 30-00-8218Gxiwxihbdv NotePatient: GRETCHEN DELATORRE Age: 69 years Sex: [...] AAA (abdominal aortic aneurysm) / SNOMED CT 745733443 / Confirmed CAD (coronary artery disease) / SNOMED CT 53371795 / Confirmed Myocardial infarct / SNOMED CT 03319180 / Confirmed Resolved: CVA, old, cognitive deficits / SNOMED CT 1301705031 Histories Family History: Entire family history is negative. Procedure history: AAA - Abdominal aortic aneurysm ([id number]) in 2012 at 62 Years. AAA - Abdominal aortic aneurysm (375764698) in 2005 at 55 Years. quaddruple cardiac byapss in 2005 at 55 Years. back surgery in 2004 at 54 Years. knee scope in 2004 at 54 Years. Comments: 04/27/2020 14:05 Abimbola Pickering RN right Hip arthroplasty (097963586) in 2003 at 53 Years. AAA - Abdominal aortic aneurysm (345763062) in 2002 at 52 Years. Social History [...] ECG interpretation: SR, occ PVCs, NSTWA. Plan [employer]hesi[employer]#(ASA) physical status classification: Class III. Anesthetic Preoperative Plan Anesthesia: General. . Anesthetic plan, risks, benefits, and alternatives discussed with the patient and/or family. Patient verbalized understanding. Informed consent was given. Consent was signed by the patient. [Electronically Signed on: 05/15/2020 08:26 EDT] Tom Casiano MD [Verified on: 05/15/2020 08:26 EDT] Tom Casiano MDBarney [facility] w/ Auto Diffon 75-92-8723Lhqvabreqzq distribution width (RBC) [Ratio]12.1 %Bigjav35.5-15.0Uk HealthcareComment on above:Performed By: #### [id number], [id number], [id number] #### [facility] (DEFAULT) [address] [place], [place] [address]Ytkmyzgjqi (Bld) [Volume fraction]33.2 %Low34.8-51.9 Edgardo HospitalComment on above:Performed By: #### [id number], 14660942, [id number] #### [facility] (DEFAULT) [address] [place] [address] 20100Mtppqcphtc (Bld) [Mass/Vol]11.5 g/dLLow11.8-17.7[facility] HospitalComment on above:Performed By: #### [id number], [id number], [id number] #### [facility] (DEFAULT) [address] [place] [address] 11703Xwj Diff?AutoNormalWooster Community Hospital HospitalComment on above: Performed By: #### [id number], [id number], [id number] #### [facility] (DEFAULT) [address] [place] [address] 33211CXO (RBC) [Entitic mass]32 kiYzlsjr76-60[facility] Comment on above:Performed By: #### 2791050, 12020934, [id number] #### [facility] (DEFAULT) [address] [place] [address] 49016WXPT (RBC) [Mass/Vol]35 g/jTRfikqk23-77[facility] Comment on above:Performed By: #### 9468122, 11399530, [id number] #### [facility] (DEFAULT) [address] [place] [address] 09630PXN (RBC) [Entitic vol]92 tLNfjkkb92-963[facility] Comment on above:Performed By: #### 5328921, [id number], [id number] #### [facility] (DEFAULT) [address] [place] [address] 51046Gwizmvqt mean volume (Bld) [Entitic vol]9.5 fLNormal 6.3-10.2MLakeHealth TriPoint Medical CenterComment on above:Performed By: #### 6224534, 23971508, [id number] #### [facility] (DEFAULT) [address] [place] [address] 72330Wtdsjnxpe (Bld) [#/Vol]205 q65Jkglty005-945Usymetih HospitalComment on above:Performed By: #### 0661859, [id number], [id number] #### [facility] (DEFAULT) [address] [place] [address] 74400JCS (Bld) [#/Vol]3.62 t07Voz4.70-5.30[facility] Comment on above:Performed By: #### 4823217, 55724012, [id number] #### [facility] (DEFAULT) [address] [place] [address] 28035OBL (Bld) [#/Vol]10.6 l67Ydxt8.5-10.5[facility] Comment on above:Performed By: #### [id number], [id number], [id number] #### [facility] (DEFAULT) [address] [place] [address] 19255Metaukv and Physicalon 29-16-3325Zmjqxzq and Physical [id number]#1.00OTGTIFFAshtabula General HospitalMAGR Intraoperative Recordon 84-32-0834FJER Intraoperative RecordMAGR Intra-Op Record Summary Primary Physician: Bairon Win DO Finalized Date/Time: 05/15/20 17:18:47 Pt. Name: GRETCHEN DELATORRE/Sex: 1950 MALE Med Rec #: [id number] Physician: Bairon Win DO Financial #: [id number] Pt. Type: O Room/Bed: [facility]/ Admit/Disch: 05/15/20 06:07:00 - Institution: [...] Role Performed Surgeon - Primary Anesthesiologist of Rat Exterminator Record Time In 05/15/20 09:01:00 05/15/20 09:01:00 05/15/20 09:01:00 Time Out 05/15/20 11:20:00 05/15/20 11:20:00 05/15/20 11:20:00 Procedure Arthroplasty Total Arthroplasty Total Arthroplasty Total Hip(Right) Hip(Right) Hip(Right) Last Modified By: Ethel Gibson RN, Stephanie RN Sauer, Stephanie RN 05/15/20 14:15:50 05/15/20 14:15:50 05/15/20 14:15:50 Entry 4 Entry 5 Entry 6 Case Attendee Megan WOOL TAMPER, Mauricio Foreman Brittany E CST Regina WOOL TAMPER Role Performed Scrub Personnel Welding Machine Operator Plasma Arc Welding Machine Operator Plasma Arc Time In 05/15/20 09:01:00 05/15/20 09:01:00 05/15/20 [...] Outcome Met (O.100) Yes Last Modified By: Ethle Gibson RN 05/15/20 09:48:55 Post-Care Text: E.10 [...] Counts Ethel Gibson RN, Performed By Adina Gumzan CST Final Count Time 05/15/20 10:45:00 Surgeon [...] By: Pedro Edgar DO Size 54MM 58MM Field Worker DePuy DEPUY DEPUY Catalog # Lot Number [id number] Expiration Date 03/02/30 04/02/30 Serial Number REF 1217-32-054 REF 1217-32-054 REF 1217-32-056 Device Identifier Human Readable PAUL Machine Readable PAUL MR Class Implant Usage Data Site Hip R Hip R Hip R Quantity 1 1 1 Reason for Explant Reason Not Retained Explant Disposition Business Initiatives Manager Sterility External Indicator Result Internal Indicator Results [...] 56OD 6.5MM X 25MM KA SIZE 11 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 DEPUY DEPUY Catalog # Lot Number [id number] Expiration Date 12/31/24 10/02/29 07/03/24 Serial Number REF [id number] REF [id number] REF [id number] Device Identifier Human Readable PAUL Machine Readable PAUL MR Class Implant Usage Data Site Hip R Hip R Hip R Quantity 1 2 1 Reason for Explant Reason Not Retained Explant Disposition Business Initiatives Manager Sterility External Indicator Result Internal Indicator Results Outcome Met (O.30) Yes Yes Yes Last Modified By: Ethel Gibson RN, Stephanie RN Sauer, Stephanie RN 05/15/20 15:23:55 05/15/20 15:23:55 05/15/20 15:23:55 Entry 7 Procedure Arthroplasty Total Hip(Right) Implant Action Implant Description DEPUY M SPEC METAL FEMORAL HEAD Implant Information Implant/Explant 05/15/20 10:25:00 Date/Time Implanted/Explanted Bairon Win By: Pedro WHITE Size 036MM /14 TAPER 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
--- OUTSIDE RECORDS SUMMARY | 2025-09-12 12:33 | XMS_ITS | Clinical Summary ---
Author Organization [facility] Address [address] [place], [place] [address] Care Team Providers Care Jail Officer Name Role Phone Vik Oreilly MD Primary Care Provider [phone] Allergies Active AllergyReactionsCriticalityNoted SbimVpgmbuxhNgvvrtq-Wim-Vyt Reductase AxuiifphjpHffskma89/15/2013 Medications MedicationSigDispense QuantityRefillsLast FilledStart DateEnd DateStatus aspirin, enteric coated (ADULT LOW DOSE ASPIRIN) 81 mg EC tablet Take 1 tablet by mouth once daily.ctive Kemah-3 Fatty Acids (FISH OIL) 500 mg cap [...] Take 500 mg by mouth once daily.Active Ubidecarenone-Kemah 3-Vit E (COQ-10 & FISH OIL) 50-300-30 [...] unknown significance)06/28/2013 Resolved Problems ProblemNoted DateDiagnosed DateResolved IcqeInsjayeyatswzkiezkbpvw84/17/2013 03/25/2013 Immunizations ImmunizationAdministration DatesNext Duepneumococcal polysaccharide (PPV23) vaccine, 23 valent (PNEUMOVAX 23)07/14/2006 Social History Tobacco UseTypesPacks/DayYears UsedDateSmoking Tobacco: NeverSmokeless Tobacco: NeverAlcohol UseStandard Drinks/WeekCommentsYes0 (1 standard drink = 0.6 oz pure alcohol)6-7 per week last drink 07/12/13Sex and Gender InformationValueDate RecordedSex Assigned at BirthNot on fileLegal EmbUwex4302/10/2013 9:19 AM EDT Gender IdentityNot on fileSexual OrientationNot on file Last Filed Vital Signs Vital SignReadingTime TakenCommentsBlood Wixsewhm786/9608 10:58 AM EDT second attempt 145/20Vospb9732/23/2016 10:58 AM ORSAeypnqqdnig59 ??C (98.6 ??F) 06/25/2016 10:58 AM EDTRespiratory Tikv5709 10:58 AM EDTOxygen Dmvlwnpkpe00%07/18/2013 1:39 PM EDTInhaled Oxygen Concentration--Ndbdzd54.8 kg (193 lb 9.6 oz)06/25/2016 10:58 AM FLJCctsqj239.6 cm (5' 5.98 )06/25/2016 10:58 AM EDTBody Mass Index31.26006/25/2016 10:58 AM EDT Plan of Treatment Health MaintenanceDue DateLast DoneCommentsAnxiety Umyqhnbyz66/02/1971Depression Atwnkbuue07/02/1971Hepatitis C Yyndicgzh28/02/1971DTaP,Tdap,Td Vaccine (1 - Tdap)1971Lipid Khgcvcfmp75/02/1988CT Uymoimklydyf99/02/1998Cologuard (FIT-DNA)12/05/19976055Muytwqarstl80/02/1998Colorectal Cancer Nnxcnhbig44/02/1998 Fecal Occult Blood12/05/19976583Eavonggpqaqvn60/02/1998Shingrix Vaccine (1 of 2) 2002Pneumococcal Vaccine: 50+ (2 of 2 - PCV)Diabetes Xkkwewwvy63, 06/05/2020, 05/27/2020, Additional history exists Advance Directive Onnzcgtvnu16/01/2025ovid-19 Vaccine (1 - 2024- season) 2025Influenza Vaccine (#1)2025RSV Vaccine (1 - 1-dose 75+ series) 2027 Medical Devices ImplantedTypeAreaManufacturerDevice IdentifierShelf Expiration DateModel / Serial / LotMesh Srg Surgipro 14x9in Armando - [id number] Implanted:Qty: [facility]14[facility] [id number] / / Procedures Procedure NamePriorityDate/TimeAssociated DiagnosisCommentsCOMPREHENSIVE METABOLIC SBMAZVljaojq73/16/2016 11:04 AM EDT MGUS (monoclonal gammopathy of [...] Bilirubin, Total0.50.0 - 1.5 mg/dL06/18/2016 9:48 PM [facility] LABORATORYAlkaline Zsdhfezfgte9570 - 150 U/L06/18/2016 9:48 PM [facility] PZAZXSYHJKTGT143 - 40 U/L06/18/2016 9:48 PM [facility] RHTCJCLLLSCbfbhhq797(H)65 - 100 mg/dL06/18/2016 9:48 PM [facility] NLNQVEYDCXFPY9443 - 25 mg/dL06/18/2016 9:48 PM [facility] LABORATORYCreatinine0.790.70 - 1.40 mg/dL06/18/2016 9:48 PM [facility] IRVFTCGCXQSdognv496113 - 146 mmol/L06/18/2016 9:48 PM [facility] LABORATORYPotassium4.43.5 - 5.0 mmol/L06/18/2016 9:48 PM EDT [facility] ECVZROBGYNQllxmrge36546 - 110 mmol/L06/18/2016 9:48 PM [facility] ANHIFHRDCNDO434(L)23 - 32 mmol/L06/18/2016 9:48 PM [facility] LABORATORYAnion Gap16(H)0 - 15 mmol/L06/18/2016 9:48 PM [facility] RNJJZTMJIIAHE866 - 50 U/L06/18/2016 9:48 PM EDT [facility] LABORATORYeGFR->6008 9:48 PM T [facility] LABORATORYeGFR-All Other Races>60.06/18/2016 9:48 PM T [facility] LABORATORYComment: eGFR (Estimated GFR) Units of measure: [...] StatusAlfred P VargasLABORATORYFinal ResultPerforming OrganizationAddressCity/State/ZIP CodePhone Number [facility] [address] [place] [address] from Last 3 Months or Most Recently Relevant to Health Maintenance Care Teams Team MemberRelationshipSpecialtyStart DateEnd Date Vik Oreilly MD PCP - GeneralFamily Medicine02/10/13
[2025-09-12 13:24] LABS: Hematocrit 30.7 % (42.0-54.0); Hemoglobin 10.0 g/dL (14.0-18.0); Immature Granulocytes Abs Auto 0.02 10^3/uL (0.00-0.03); Immature Granulocytes Pct Auto 0.3 % (0.0-0.5); Lymphocytes Absolute Auto 1.1 10^3/uL (1.2-3.8); Mean Corpuscular HGB Conc 32.6 g/dL (29.9-35.2); Mean Corpuscular Hemoglobin 36.1 pg (25.9-34.0); Mean Corpuscular Volume 110.8 fL (80.0-94.0); Platelet Count 191 10^3/uL (150-450); Red Blood Count 2.77 10^6/uL (4.70-6.10); White Blood Count 6.9 10^3/uL (4.0-11.0)
[2025-09-12 13:50] LABS: Anion Gap 7.3; Blood Urea Nitrogen 19.0 mg/dL (7.0-18.0); Calcium 9.3 mg/dL (8.5-10.1); Carbon Dioxide 28.3 mmol/L (21.0-32.0); Chloride 103 mmol/L (98-107); Cholesterol 171 mg/dL (<=200); Estimated GFR (African America >60 (>=60 mL/min/1.73m^2); Estimated GFR (Non-African Ame >60 (>=60 mL/min/1.73m^2); Glucose 111 mg/dL (74-106); HDL Cholesterol 40 mg/dL (40-60); Potassium 3.6 mmol/L (3.5-5.1); Sodium 135 mmol/L (136-145); Triglycerides 116 mg/dL (<=150); VLDL CHOLESTEROL 23.2 mg/dL
== END 2025-09-12 12:21 | disposition home or self-care (01) ==
LOC: LAB 12:29
PROVIDERS: PCP Family Medicine
DX: Z01.818 Encounter for other preprocedural examination (principal); E78.2 Mixed hyperlipidemia
CPT/HCPCS: 36415; 80048; 80061; 85025

== ENCOUNTER 2025-09-15 14:47 | Outpatient (REF) | payer MEDICARE, SELFPAY ==
--- OUTSIDE RECORDS SUMMARY | 2025-09-01 08:15 | XMS_ITS ---
Author Organization [facility] [place] Address [address] [place] [address] Care Team Providers Care Inspector Paper Products Name Role Phone Yamil Doll Primary Care Provider [phone] Allergies No Known Allergies Results Component Value Reference Range Notes PROF 14(COMP METB) Reviewed date:09/04/2025 01:44:02 PM Interpretation: Performing Lab: Notes/Report: [facility] , Sodium 134 136-145 mmol/L Potassium3.63.5-5.1 mmol/JPbfbhwnh79585-529 mmol/LCarbon Clvgdub49.721.0-32.0 mmol/LAnion Gap8.5Zzoprrj16213-276 mg/dLBlood Urea Neagjvpu29.07.0-18.0 mg/dL Creatinine1.060.70-1.30 mg/dLEstimated GFR ( Stephanie>60>=60 mL/min/1.73m 2Estimated GFR (Non- Kristel>60>=60 mL/min/1.73m 2BUN Creatinine Ratio18.9 Calcium8.38.5-10.1 mg/dLBilirubin Total0.60.2-1.0 mg/dLAspartate Amino Bmjquddhura63817-22 U/LAlanine Olfbjxrzmagpitpa50907-86 U/LAlkaline Phosphatase 6046-116 U/LTotal Rsvtlri09.16.4-8.2 g/dLAlbumin Level2.93.4-5.0 g/dLGlobulin8.2 Albumin Globulin Ratio0.4Performing Lab:see noteML - [facility] LBCBC AUTO DIFF Reviewed date:09/04/2025 01:44:02 PM Interpretation: Performing Lab: Notes/Report: [facility] ,White Blood Count4.84.0-11.0 10 3/uLRed Blood Count2.204.70-6.10 10 6/uL Hemoglobin8.114.0-18.0 g/yMJuupyourah74.342.0-54.0 %Mean Corpuscular Barfza723.5 80.0-94.0 fLMean Corpuscular Btxulkdxyy27.825.9-34.0 pgMean Corpuscular HGB Conc 33.329.9-35.2 g/dLRed Cell Distribution Width15.511.0-15.0 %Platelet Utijp810 150-450 10 3/uLMean Platelet Volume9.49.5-13.5 fLNeutrophils Percent Auto63.2 43.0-75.0 %Lymphocytes Percent Auto19.520.5-60.0 %Monocytes Percent Auto13.61.7- 12.0 %Eosinophils Percent Auto2.90.9-7.0 %Basophils Percent Auto0.60.2-2.0 % Immature Granulocytes Pct Auto0.20.0-0.5 %Neutrophils Absolute Auto3.01.4-6.5 10 3/uLLymphocytes Absolute Auto0.91.2-3.8 10 3/uLMonocytes Absolute Auto0.70.3-0.8 10 3/uLEosinophils Absolute Auto0.10.0-0.7 10 3/uLBasophils Absolute Auto0.00.0- 0.1 10 3/uLImmature Granulocytes Abs Auto0.010.00-0.03 10 3/uLPerforming Lab:see noteML - [facility] LBBNP Reviewed date:09/04/2025 01:44:02 PM Interpretation: Performing Lab: Notes/Report: [facility] ,NT Pro B Type Natriuretic Zlmw2931.0<=900.0 pg/mLRESULTS CALLED TO DR. 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, 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, follows up with [place] [facility] in October Medications Medication SIG (Take, [...] Status W/U Status Risk Notes Problem Edema (66078676) Edema (R60.9) ActiveconfirmedProblemCervical radiculopathy (98390243)Cervical radiculopathy (M54.12)Activeconfirmed Vital Signs Weight 193.4 lbs 09/01/2025 Height 66 in 09/01/2025 Blood pressure systolic 154 mm Hg 09/01/20 25 Blood pressure diastolic 86 mm Hg 025 Heart Rate 77 /min 09/01/2025 BMI 31.21 kg/m2 09/01/2025 Oximetry 95 % 09/01/2025 Encounters Encounter Location Date Provider Diagnosis [facility] [address] [place] [address] 09/01/2025 Yamil Doll Edema R60.9 and Cerv [...] * Arsh PARMAR ADOB:1950 (74 yo M)Acc No.[id number]:09/01/2025 Progress Note Patient: Arsh BUTTERFIELD :?Vik Doll ([facility]), MDDOB:1950???Age: 74 Y???Sex:MaleDate:09/01/2025Phone:[phone]:[address], [place], [place]Iokjq In:01:10 PM ESTCheck Out:01:51 PM EST Subjective: * Chief Complaints: * S welling bilateral ankles- started last week, open area on the back of the right legSOB for about three weeks- said is getting a little betterThis all started in May- threw back out- went to chiropractor multiple times- now has upper shoulder pain and into the neckRight hand rubber cutter is weakened- ongoing, 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follows up with [place] [facility] in October * HPI: ???General:? Swling [...] I67.89 Other cerebrovascula r disease Modified On:03/04/2023W/U Status:lvzkvgvtwV86.0Bilateral primary osteoarthritis of knee Modified On:03/04/2023 Status:osekdewtjO97.896Other spondylosis, lumbar region Modified On:03/04/2023 Status:vontdmmlhT98.43XAMultiple fractures of ribs, bilateral, initial encounter for closed fracture Modified On:03/04/2023 Status:gvzwwjjfpP00.0XXATraumatic pneumothorax, initial encounter Modified On:03/04/2023 Status:bpofcvebdY29.322AContusion of lung, bilateral, initial encounter Modified On:03/04/2023 Status:audlzcqvkP49.254ANondisplaced comminuted fracture of shaft of ulna, right arm, initial encounter for closed fracture Modified On:03/04/2023 Status:hyjpbwkibD66.014ANondisplaced osteochondral fracture of right patella, initial encounter for closed fracture Modified On:03/04/2023 Status:kjzsmnnbaK51.51XAInfection and inflammatory reaction due to internal right hip prosthesis, initial encounter Modified On:03/04/2023 Status:gqjazyizwB43.2Prosthetic and other implants, materials and accessory orthopedic devices associated with adverse incidents Modified On:03/04/2023 Status:xgpjwezymH71.5Hyperlipidemia Modified On:02/12/2024 Status:ibegdndiyW30Njzyjnxwznfj Modified On:02/12/2024 Status:efvpitcseL45.90Osteoarthritis Modified On:03/04/2023 Status:tmoukptugK07.9Sinusitis Modified On:03/04/2023 Status:szadoycihD96.40Visual field defect Modified On:03/04/2023 Status:atxykfyblC38.20Cerumen impaction Modified On:03/04/2023 Status:nbotjwdmlR21.0Osteoporosis Modified On:03/04/2023 Status:fvfhchobuB80.9Acute bronchitis Modified On:03/04/2023 Status:ugtkzfjkxE13.00Well adult Modified On:03/28/2023 Status:setxtcjnmQ72.9Folliculitis Modified On:03/04/2023 Status:kzpnzbfulY81.36DDD (degenerative disc disease), lumbar Modified On:03/04/2023 Status:dvopewoehC80.1History of coronary artery bypass graft Modified On:03/04/2023 Status:bbehsetylT41.9Cataract Modified On:03/04/2023 Status:hvjtbfwucO63.819Vitreous detachment Modified On:03/04/2023 Status:lbangqqyuO64.0Aphthous ulcer Modified On:03/04/2023 Status:xywaesssrE42.9H/O adverse drug reaction Modified On:03/04/2023 Status:padieediqF98.2History of [place] (myocardial infarction) Modified On:03/04/2023 Status:tuksoctpwD35.19Myocardial infarction of inferior wall Modified On:03/04/2023 Status:orcgnmsbzU67.1Retroperitoneal hematoma Modified On:03/04/2023 Status:hzabuvudkN07.9Eczema of hand Modified On:03/04/2023 Status:drbtvojrzO76.379Macular pucker Modified On:03/04/2023 Status:qanbeueujS22.462Homonymous hemianopsia, left Modified On:03/04/2023 Status:bxmjiztvyZ96.2Monoclonal gammopathy of unknown significance Modified On:03/04/2023 Status:jnpozwgxpW16.5RB (rectal bleeding) Modified On:03/04/2023 Status:kctrdjqfxJ86.269Meniscus, lateral, bucket handle tear, old Modified On:03/04/2023 Status:sbtckmgcpA70.890H/O arthroscopy of right knee Modified On:03/04/2023 Status:yrhiurzduL56.890H/O laminectomy Modified On:03/04/2023 Status:vemjhbcpdM73.890History of inferior vena caval filter placement Modified On:03/04/2023 Status:mtodxnsswO32.09Acute [place] anterior wall first episode care Modified On:03/04/2023 Status:prjsmaaskW42.113ALaceration of liver, initial encounter Modified On:03/04/2023 Status:kpidxbptxB91.061Lumbar spinal stenosis Modified On:03/04/2023 Status:isydgtlenL99.50Low back pain, unspecified Modified On:03/04/2023 Status:cvnzulrgjJ33.890H/O surgical procedure Modified On:03/04/2023 Status:jrlqdaismW71.9Unspecified infectious disease Modified On:03/04/2023 Status:cfuewibahQ65.2Mixed hyperlipidemia Modified On:03/28/2023 Status:iaqxfkjyaE55.4Presbyopia Modified On:03/04/2023 Status:ibxjzxtqjN73.7Cardiomyopathy due to drug and external agent Modified On:03/28/2023 Status:gpssklrrkG80.10CAD (coronary artery disease) Modified On:02/12/2024 Status:vqcfvtbjqD10.9Hypothyroidism Modified On:02/19/2024 Status:fxsahgehuT27.9Heart failure, unspecified Modified On:08/15/2025 Status:wrddsszpbR09.90Cellulitis Modified On:08/15/2025 Status:bhcvxpcoeM89.9Edema Modified On:09/01/2025 Status:mnlrkxuvqU60.12Cervical radiculopathy Modified On:09/01/2025 Status:confirmed * Medical History: [...] as directed Orally Osteo Bi-Flex One Per Day(Kktklpltw-Vqkpzwehvaz-Jxu D) - Tablet as directed Orally Rosuvastatin [...] directed Orally Taking Osteo Bi-Flex One Per Day(Qqcjggerr-Pynslntsaml-Xet D) - Tablet as directed Orally Taking [...] Poli Doll ([facility])MD Date: Generated for Printing/Faxing/eTransmitting on:?09/15/2025 02:49 PM EST History and Physical Notes * [...]
--- OUTSIDE RECORDS SUMMARY | 2025-09-04 08:33 | XMS_ITS ---
Author Organization The [facility] in [place] Address [address] [place] [address] Care Team Providers Care Promotion Manager Name Role Phone Yamil Oreilly Primary Care Provider Results Component Value Reference Range Notes BNP Reviewed date:09/06/2025 07:22:28 PM Interpretation: Performing Lab: Notes/Report: [facility] , NT Pro B Type Natriuretic Pept 2661.0 <=900.0 pg /mL RESULTS CALLED TO Performing Lab: see note ML - [facility] LB REASON FOR VISIT review labs Medications [...] Status W/U Status Risk Notes Problem Anemia (411388520) Anemia (D64.9) Activeconfirmed Procedures Procedure Date Ordered Date Performed Result Body Sit e Echocardiogram 09/04/2025 N/A Encounters Encounter Location Date Provider Diagnosis [facility] [address] [place] [address] 09/04/2025 Yamil Oreilly Anemia D64.9 ; SOB [...] * Arsh PARMAR ADOB:1950 (74 yo M)Acc No.[id number]:09/04/2025 Patient:?Arsh PARMAR A :1950???Age:74 Y???Sex:MalePhone:[phone] Address:[address] [place] [address] [address], [place] [address] * Refills Refill Lasix Tablet, 40 MG, [...] Codes: * true * Date:?Generated for Printing/Faxing/eTransmitting on:?09/15/2025 02:49 PM EST
--- OUTSIDE RECORDS SUMMARY | 2025-09-06 11:22 | XMS_ITS ---
Author Organization The [facility] in [place] Address [address] [place] [address] Care Team Providers Care Claims Coordinator Name Role Phone Yamil Oreilly Primary Care Provider Results Component Value Reference Range Notes BNP Reviewed date:09/07/2025 12:58:45 PM Interpretation: Performing Lab: Notes/Report: [facility] , NT Pro B Type Natriuretic Pept 2558.0 <=900.0 pg /mL RESULTS CALLED TO NORA WALSH LPN at 1135 Performing Lab: see note ML - [facility] LB REASON FOR VISIT Critical Labs Encounters Encounter Location Date Provider Diagnosis [facility] [address] [place] [address] 09/06/2025 Yamil Oreilly Elevated troponin R7 7.8 ; Hyperlipidemia E78.5 ; Hypertension I10 and Edema R60.9 Assessments Encounter Date Diagnosis (ICD Code) Assessment Notes Treatment Notes Treatment Clinical Notes Section Notes 09/06/2025 Elevated troponin (ICD-10 - R77. 8) 09/06/2025Hyperlipidemia (ICD-10 - E78.5)09/06/2025Hypertension (ICD-10 - I10) 09/06/2025Edema (ICD-10 - R60.9) Plan Of Treatment Pending Test Test Name Order Date Troponin 09/06/2025 CMP - Comprehensive Metabolic Panel 11/0 02/2025 CBC W/AUTO DIFF 09/06/2025 Progress Notes * Arsh PARMAR ADOB:1950 (74 yo M)Acc No.[id number]:09/06/2025 Patient:?Arsh PARMAR :1950???Age:74 Y???Sex:MalePhone:[phone] Address:[address] [place] [address] [address], [place] [address] Subjective: * Chief Complaints: * C ritical Labs * Medical History: * Surgical History: * Hospitalization/Major Diagno stic Procedure: * Medications: Objective: * Vitals: * Physical Examination: ??? Assessment: * Assessment: 1.?Elevated troponin - R77.8 (Primary)???2.?Hyperlipidemia - E78.5?&#1 60;?3.?Hypertension - I10???4.?Edema - R60.9??? Plan: * Treatment: ?LAB: Troponin* STAT ?LAB: CMP - Comprehensive Metabolic Panel* STAT ?LAB: CBC W/AUTO DIFF* STAT ?LAB: BNP* STAT 2.?Hyperlipidemia?LAB: Troponin* STAT ?LAB: CMP - Comprehensive Metabolic Panel* STAT ?LAB: CBC W/AUTO DIFF* STAT ?LAB: BNP* STAT 3.?Hypertension?LAB: Troponin* STAT ?LAB: CMP - Comprehensive Metabolic Panel* STAT ?LAB: CBC W/AUTO DIFF* STAT ?LAB: BNP* STAT 4.?Edema?LAB: Troponin* STAT ?LAB: CMP - Comprehensive Metabolic Panel* STAT ?LAB: CBC W/AUTO DIFF* STAT ?LAB: BNP* STAT * Procedure Codes: * true * Date:?Generated for Printing/Faxing/eTransmitting on:?09/15/2025 02:49 PM EST
--- OUTSIDE RECORDS SUMMARY | 2025-09-07 08:45 | XMS_ITS ---
Author Organization [facility] in [place] Address [address] [place] [address] Care Team Providers Care Corporate Compliance Director Name Role Phone Yamil Oreilly Primary Care Provider Allergies No Known Allergies REASON FOR VISIT Abnormal Labs, Elevated Troponin and BNP, Refused ER Medications Medication SIG (Take, Route, Frequency, Duration) Notes Start Date End Date Status tiZANidine HCl 4 MG 2 tabs Orally qhs; Duration: 30 days 5ActivePotassium Chloride ER 20 MEQ1 capsule with food Orally Twice a day; Duration: 30 days5ActiveRosuvastatin Calcium 10 MG1 tablet Orally Once a dayActiveOne A Day Mens VitaCraves -as directed OrallyActiveOsteo Bi-Flex One Per Day -as directed OrallyActiveLasix 40 MG1 tablet Orally twice a day; Duration: 30 days5ActiveLevothyroxine Sodium 50 MCGTAKE 1 TABLET BY MOUTH ONCE DAILY IN THE MORNING ON AN EMPTY STOMACH; Duration: 30Active Isosorbide Mononitrate ER 30 MG1 tablet in the morning Orally Once a day; Duration: 30 day(s)5ActiveLisinopril 10 MG1 tablet Orally Once a day ActiveMupirocin 2 %1 application Externally Twice a day; Duration: 5 days 5ActiveEzetimibe 10 MG1 tablet Orally Once a dayActiveFish Oil 1200 MG1 capsule Orally Once a dayActiveAtenolol 50 MGTake 1 tablet by mouth once daily; Duration: 90ActiveNitroglycerin 0.4 MG1 sl Sublingual Q 5 min as needed for chest pain5ActiveIron 325 (65 Fe) MG1 tablet Orally bid; Duration: 30 days4ActiveAspirin 81 81 MG1 tablet Orally Once a [...] Problem Status W/U Status Risk Notes Problem Congestive heart failure (630041 07) CHF (congestive heart failure) (I50.9) Activeconfirmed Vital Signs Weight 185.6 lbs 09/07/2025 Height 66 in 09/07/2025 Blood pressure systolic 120 mm Hg 09/07/20 25 Blood pressure diastolic 70 mm Hg 025 BMI 29.95 kg/m2 09/07/2025 185.6 Encounters Encounter Location Date Provider Diagnosis [facility] [address] [place] [address] 09/07/2025 Yamil Oreilly CHF (congestive hear t failure) I50.9 Assessments Encounter Date Diagnosis (ICD Code) Assessment Notes Treatment Notes Treatment Clinical Notes Section Notes 09/07/2025 CHF (congestive heart failure) ( ICD-10 - I50.9) Plan Of Treatment Medication Medication Name Sig Start Date Stop Date Notes Isosorbide Mononitrate ER 30 MG 1 tablet in the morning Orally Once a day; Duration: 30 day(s) 09/07/2025 Nitroglycerin 0.4 MG1 sl Sublingual Q 5 min as needed for chest pain09/07/2025 Progress Notes * Arsh PARMAR ADOB:1950 (74 yo M)Acc No.[id number]:09/07/2025 Progress Note Patient: Arsh BUTTERFIELD :?Vik Oreilly ([facility]), MDDOB:1950???Age: 74 Y???Sex:MaleDate:09/07/2025Phone:[phone]:[address], [id number] In:01:03 PM ESTCheck Out:02:30 PM EST Subjective: * Chief Complaints: * A bnormal LabsElevated Troponin and BNPRefused ER * HPI: ???Congestive Heart Failure:?Patient presents for follow-up of [...] List I67.89 Other cerebrovascula r disease Modified On:03/04/2023/U Status:hrffvpfffQ20.0Bilateral primary osteoarthritis of knee Modified On:03/04/2023/U Status:pruosubplD48.896Other spondylosis, lumbar region Modified On:03/04/2023 Status:kmcjdbwikU68.43XAMultiple fractures of ribs, bilateral, initial encounter for closed fracture Modified On:03/04/2023 Status:ivretrwydE10.0XXATraumatic pneumothorax, initial encounter Modified On:03/04/2023 Status:lcoyrjeumG73.322AContusion of lung, bilateral, initial encounter Modified On:03/04/2023 Status:mpiyjelgxQ91.254ANondisplaced comminuted fracture of shaft of ulna, right arm, initial encounter for closed fracture Modified On:03/04/2023 Status:cntwlsjvxM62.014ANondisplaced osteochondral fracture of right patella, initial encounter for closed fracture Modified On:03/04/2023 Status:tkppnvgruM49.51XAInfection and inflammatory reaction due to internal right hip prosthesis, initial encounter Modified On:03/04/2023 Status:qqvqweaucR31.2Prosthetic and other implants, materials and accessory orthopedic devices associated with adverse incidents Modified On:03/04/2023 Status:gpawqvqtnW63.5Hyperlipidemia Modified On:02/12/2024 Status:dctwlactuQ57Smachypxiqru Modified On:02/12/2024 Status:ddirmvampX34.90Osteoarthritis Modified On:03/04/2023 Status:rvehzwghxD58.9Sinusitis Modified On:03/04/2023 Status:ihjkbcjojR80.40Visual field defect Modified On:03/04/2023 Status:kxerwloouS68.20Cerumen impaction Modified On:03/04/2023 Status:ynfjztgkuF66.0Osteoporosis Modified On:03/04/2023 Status:fmlhyllwrT88.9Acute bronchitis Modified On:03/04/2023 Status:vmfppicnhJ05.00Well adult Modified On:03/28/2023 Status:kfwypeqaeN95.9Folliculitis Modified On:03/04/2023 Status:wyytzemxwY52.36DDD (degenerative disc disease), lumbar Modified On:03/04/2023 Status:mqmvmkqipT60.1History of coronary artery bypass graft Modified On:03/04/2023 Status:afseodtpeE59.9Cataract Modified On:03/04/2023 Status:qrfbgghjhP78.819Vitreous detachment Modified On:03/04/2023 Status:rqmxhmlanQ67.0Aphthous ulcer Modified On:03/04/2023 Status:bqgfpubcaK98.9H/O adverse drug reaction Modified On:03/04/2023 Status:sazjtigkrV62.2History of KS (myocardial infarction) Modified On:03/04/2023 Status:iemnlmnwkL89.19Myocardial infarction of inferior wall Modified On:03/04/2023 Status:bjfazwgaxQ80.1Retroperitoneal hematoma Modified On:03/04/2023 Status:qxjpakhbpJ31.9Eczema of hand Modified On:03/04/2023 Status:hjasqoxhkG46.379Macular pucker Modified On:03/04/2023 Status:jmyycwdjdZ59.462Homonymous hemianopsia, left Modified On:03/04/2023 Status:tuuqafaqrH84.2Monoclonal gammopathy of unknown significance Modified On:03/04/2023 Status:jqiecabhbD86.5RB (rectal bleeding) Modified On:03/04/2023 Status:jdrcbretoU52.269Meniscus, lateral, bucket handle tear, old Modified On:03/04/2023 Status:esgfdipruZ09.890H/O arthroscopy of right knee Modified On:03/04/2023 Status:bfpqsmlkuJ87.890H/O laminectomy Modified On:03/04/2023 Status:mujnbmiipI30.890History of inferior vena caval filter placement Modified On:03/04/2023 Status:vrtxwhifbO59.09Acute KS anterior wall first episode care Modified On:03/04/2023 Status:kekpjvogxE71.113ALaceration of liver, initial encounter Modified On:03/04/2023 Status:zdyyedkzsC64.061Lumbar spinal stenosis Modified On:03/04/2023 Status:syorojmqwC15.50Low back pain, unspecified Modified On:03/04/2023 Status:kgraaxybsY14.890H/O surgical procedure Modified On:03/04/2023 Status:myfycyunfT84.9Unspecified infectious disease Modified On:03/04/2023 Status:bnwdrigjdN50.2Mixed hyperlipidemia Modified On:03/28/2023 Status:mjqkuuaepV25.4Presbyopia Modified On:03/04/2023 Status:svxketdjmE57.7Cardiomyopathy due to drug and external agent Modified On:03/28/2023 Status:bfxbgsdxfO98.10CAD (coronary artery disease) Modified On:02/12/2024 Status:ocvwoomhwD93.9Hypothyroidism Modified On:02/19/2024 Status:xtvxkpdqeR86.90Cellulitis Modified On:08/15/2025 Status:crhudmaijB36.9Edema Modified On:09/01/2025 Status:wvtixzoxtX12.12Cervical radiculopathy Modified On:09/01/2025 Status:owkfrjxawL27.9Anemia Modified On:09/06/2025 Status:fjhsnjvpdR49.9CHF (congestive heart failure) Modified On:09/07/2025 Status:confirmed * Medical History: * Surgical History: R ight Total Hip 2020Left Total Hip 2004Lumbar spine- bone spurs Quadruple Bypass 02/2006Right knee scope 10/2005Abdominal Hernia x3 2009-2012Colonoscopy 08/22/2021 * Hospitalization/Major Diagno stic Procedure: B oating [...] Fe) MG Tablet 1 tablet Orally bid Lasix(Furosemide) 40 MG Tablet 1 tablet Orally twice a day Levothyroxine Sodium 50 MCG Tablet TAKE 1 TABLET BY MOUTH ONCE DAILY IN THE MORNING ON AN EMPTY STOMACH Lisinopril 10 MG Tablet 1 tablet Orally Once a day Mupirocin 2 % Ointment 1 application Externally Twice a day One A Day Mens VitaCraves(Multiple Vitamins-Minerals) - Tablet Chewable as directed Orally Osteo Bi-Flex One Per Day(Vrfuxrmjh-Ykdvxcymupk-Qpb D) - Tablet as directed Orally Potassium Chloride ER 20 MEQ Tablet Extended Release 1 capsule with food Orally Twice a day Rosuvastatin Calcium 10 MG Tablet 1 tablet Orally Once a day tiZANidine HCl 4 MG Tablet 2 tabs Orally qhs Medication List reviewed and reconciled with the patientTaking Aspirin 81(Aspirin) 81 MG Tablet Delayed Release 1 tablet Orally Once a day Taking Atenolol 50 MG Tablet Take 1 tablet by mouth once daily Taking Ezetimibe 10 MG Tablet 1 tablet Orally Once a day Taking Fish Oil 1200 MG Capsule Delayed Release 1 capsule Orally Once a day Taking Iron 325 (65 Fe) MG Tablet 1 tablet Orally bid Taking Lasix(Furosemide) 40 MG Tablet 1 tablet Orally twice a day Taking Levothyroxine Sodium 50 MCG Tablet TAKE 1 TABLET BY MOUTH ONCE DAILY IN THE MORNING ON AN EMPTY STOMACH Taking Lisinopril 10 MG Tablet 1 tablet Orally Once a day Taking Mupirocin 2 % Ointment 1 application Externally Twice a day Taking One A Day Mens VitaCraves(Multiple Vitamins-Minerals) - Tablet Chewable as directed Orally Taking Osteo Bi-Flex One Per Day(Mhcuzrpnx-Pxecximtwvg-Pqo D) - Tablet as directed Orally Taking Potassium Chloride ER 20 MEQ Tablet Extended Release 1 capsule with food Orally Twice a day Taking Rosuvastatin Calcium 10 MG Tablet 1 tablet Orally Once a day Taking tiZANidine HCl 4 MG Tablet 2 tabs Orally qhs Medication List reviewed and reconciled with the patient * Allergies: N .K.D.A.no[Allergies Verified] Objective: * Vitals: W t:185.6lbs, Ht: 66 in, BP:120/70mm Hg, BMI:29.95Index, Ht-cm: 167.64 cm, Wt-k.19 kg. 185.6. * Examination: ???General Examination: ?GENERAL APPEARANCE:? in no acute distress, well developed,well nourished.?LUNGS:? clear to auscultation bilaterally.?CARDIO:? S1, S2 normal, no murmurs, rubs, gallops.?EXTREMITIES:? no clubbing, cyanosis, or edema.?NEUROLOGIC:? alert, oriented to time, place, & person. ??? Assessment: * Assessment: 1.?CHF (congestive heart failure) - I50.9 (Primary)??? Plan: * Treatment: Start Isosorbide Mononitrate ER Tablet Extended Release 24 Hour, 30 MG, 1 tablet in the morning, Orally, Once a day, 30 day(s), 30;?Start Nitroglycerin Tablet Sublingual, 0.4 MG, 1 sl, Sublingual, Q 5 min as needed for chest pain, 20, Refills 11.?? * Procedure Codes: * * Sign off status: CompletedVisit Status:?CHK (Check Out) true * Provider: Poli Oreilly ([facility])MD Date: 11/07/2024 Generated for Printing/Faxing/eTransmitting on:?09/15/2025 02:50 PM EST History and Physical Notes * HPI (History of Present Illness) CategorySub-CategoryDetailNotesCategory NotesCongestive Heart FailurePatient presents for follow-up of congestive heart failure The patient's last follow-up was The patient complains of shortness of breath The patient reports lower extremity swelling The patient notes chest pain Another symptom patient reports is lightheadedness/dizziness Other symptoms include Patient denies Examination CategorySub-CategoryDetailNotesCategory NotesGeneral ExaminationGENERAL APPEARANCE:in no acute distress, well developed, well nourishedCARDIO:S1, S2 normal, no murmurs, rubs, gallopsLUNGS:clear to auscultation bilaterally NEUROLOGIC:alert, oriented to time, place, & personEXTREMITIES:no clubbing, cyanosis, or edema
--- OUTSIDE RECORDS SUMMARY | 2025-09-08 03:54 | XMS_ITS ---
Author Organization [facility] [place] Address [address] [place] [address] Care Team Providers Care Purler Name Role Phone Yamil Oreilly Primary Care Provider [phone] Results Component Value Reference Range Notes BNP Reviewed date:09/08/2025 04:12:39 PM Interpretation: Performing Lab: Notes/Report: [facility] , NT Pro B Type Natriuretic Pept 2208.0 <=900.0 pg /mL RESULTS CALLED TO NORA WALSH LPN at 1423 Performing Lab: see note ML - [facility] LBCBC AUTO DIFF Reviewed date:09/08/2025 02:09:03 PM Interpretation: Performing Lab: Notes/Report: [facility] ,White Blood Count6.54.0-11.0 10 3/uLRed Blood Count2.424.70-6.10 10 6/uL Hemoglobin8.714.0-18.0 g/tXPeggrlfhgw26.942.0-54.0 %Mean Corpuscular Skoogx326.2 80.0-94.0 fLMean Corpuscular Qhsgfdoqvz62.025.9-34.0 pgMean Corpuscular HGB Conc 32.329.9-35.2 g/dLRed Cell Distribution Width14.911.0-15.0 %Platelet Avuvt125 150-450 10 3/uLMean Platelet Volume9.49.5-13.5 fLNeutrophils Percent Auto69.9 43.0-75.0 %Lymphocytes Percent Auto14.920.5-60.0 %Monocytes Percent Auto12.41.7- 12.0 %Eosinophils Percent Auto2.00.9-7.0 %Basophils Percent Auto0.60.2-2.0 % Immature Granulocytes Pct Auto0.20.0-0.5 %Neutrophils Absolute Auto4.61.4-6.5 10 3/uLLymphocytes Absolute Auto1.01.2-3.8 10 3/uLMonocytes Absolute Auto0.80.3-0.8 10 3/uLEosinophils Absolute Auto0.10.0-0.7 10 3/uLBasophils Absolute Auto0.00.0- 0.1 10 3/uLImmature Granulocytes Abs Auto0.010.00-0.03 10 3/uLPerforming Lab:see noteML - LBTroponin I High Sensitivity Reviewed date:09/08/2025 04:12:39 PM Interpretation: Performing Lab: Notes/Report: [facility] ,Troponin I High Ibhgidswcsv347.94.0-76.1 pg/mL RESULTS CALLED TO NORA WALSH LPN at 1423 CUT-OFF POINTS HAVE BEEN ESTABLISHED BASED ON THE FOURTH UNIVERSAL DEFINITION OF MYOCARDIAL INFARCTION. THE UPPER REFERENCE LIMIT (URL) OF TROPONIN, DEFINED THE 99TH PERCENTILE OF cTnI DISTRIBUTION IN A REFERENCE POPULATION, HAS BEEN CONFIRMED THE DECISION THRESHOLD FOR ID DIAGNOSIS. 99TH PERCENTILE = 76.2 PG/ML NOTE: HIGH-SENSITIVITY TROPONIN ASSAY IS NOT INTENDED TO BE USED IN ISOLATION BUT SHOULD BE INTERPRETED IN CONJUNCTION WITH OTHER DIAGNOSTIC AND CLINICAL INFORMATION. 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 ; Acute ID anterior wall first episode care I21.09 and Encounter for long-term current use of medication Z79.899 Assessments Encounter Date Diagnosis (ICD Code) Assessment Notes Treatment Notes Treatment Clinical Notes Section Notes 09/08/2025 CHF (congestive heart failure) ( ICD-10 - I50.9) 5Anemia (ICD-10 - D64.9)5CAD (coronary artery disease) (ICD-10 - I25.10)09/08/2025ardiomyopathy due to drug and external agent (ICD-10 - I42.7)5Acute ID anterior wall first episode care (ICD-10 - I21.09) 09/08/2025Encounter for long-term current use of medication (ICD-10 - Z79.899) Plan Of Treatment Medication Medication Name Sig Start Date Stop Date Notes Pantoprazole Sodium 40 MG 1 tablet 1/2 t o 1 hour before morning meal Orally Once a day; Duration: 30 days 09/08/2025 Pending Test Test Name Order Date FECAL OCCULT BLOOD 09/08/2025 CMP - Comprehensive Metabolic Panel 04/2025 Progress Notes * Arsh PARMAR ADOB:1950 (74 yo M)Acc No.[id number]:09/08/2025 Patient:?Arsh PARMAR Luis :1950???Age:74 Y???Sex:MalePhone:[phone] Address:[address] [place] [address] [place] , [place] [id number] * Refills Start Pantoprazole Sodium Tablet Delayed Release, 40 MG, Orally, 30, 1 tablet 1/2 to 1 hour before morning meal, Once a day, 30 days, Refills=11 Subjective: * Chief Complaints: * A nemia- * Medical History: * Surgical History: * Hospitalization/Major Diagno stic Procedure: * Medications: Objective: * Vitals: * Physical Examination: ??? Assessment: * Assessment: 1.?CHF (congestive heart failure) - I50.9 (Primary)???2.?Anemia - D64.9&#16 0;??3.?CAD (coronary artery disease) - I25.10???4.?Cardiomyopathy due to drug and external agent - I42.7???5.?Acute ID anterior wall first episode care - I21.09???6.?Encounter for long-term current use of medication - Z79.899??? Plan: * Treatment: ?LAB: FECAL OCCULT BLOOD ?LAB: CMP - Comprehensive Metabolic Panel ?LAB: BNP ?LAB: Troponin I High Sensitivity ?LAB: CBC AUTO DIFF (Collection Date & Time - 09/08/2025 01:04 PM)2.?Anemia?LAB: FECAL OCCULT BLOOD ?LAB: CMP - Comprehensive Metabolic Panel ?LAB: BNP ?LAB: Troponin I High Sensitivity ?LAB: CBC AUTO DIFF (Collection Date & Time - 09/08/2025 01:04 PM)3.?CAD (coronary artery disease)?LAB: FECAL OCCULT BLOOD ?LAB: CMP - Comprehensive Metabolic Panel ?LAB: BNP ?LAB: Troponin I High Sensitivity ?LAB: CBC AUTO DIFF (Collection Date & Time - 09/08/2025 01:04 PM) 4.?Cardiomyopathy due to drug and external agent?LAB: FECAL OCCULT BLOOD ?LAB: CMP - Comprehensive Metabolic Panel ?LAB: BNP ?LAB: Troponin I High Sensitivity ?LAB: CBC AUTO DIFF (Collection Date & Time - 09/08/2025 01:04 PM)5.?Acute ID anterior wall first episode care?LAB: FECAL OCCULT BLOOD ?LAB: CMP - Comprehensive Metabolic Panel ?LAB: BNP ?LAB: Troponin I High Sensitivity ?LAB: CBC AUTO DIFF (Collection Date & Time - 09/08/2025 01:04 PM) 6.?Encounter for long-term current use of medication?LAB: FECAL OCCULT BLOOD ?LAB: CMP - Comprehensive Metabolic Panel ?LAB: BNP ?LAB: Troponin I High Sensitivity ?LAB: CBC AUTO DIFF (Collection Date & Time - 09/08/2025 01:04 PM)7.?Others? Start Pantoprazole Sodium Tablet Delayed Release, 40 MG, 1 tablet 1/2 to 1 hour before morning meal, Orally, Once a day, 30 days, 30, Refills 11.?? * Labs: * L ab: CBC AUTO DIFF (Collection Date & Time - 09/08/2025 01:04 PM) * Procedure Codes: * true * Date:?Generated for Printing/Faxing/eTransmitting on:?09/15/2025 02:49 PM EST
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
--- OUTSIDE RECORDS SUMMARY | 2025-09-15 14:49 | XMS_ITS | Clinical Summary ---
Author Organization [employer] Address [id number] [address] [place] [address] Care Team Providers Care Laundry Presser Name Role Phone Vik Oreilly MD Primary Care Provider [phone] Allergies No known active allergies Medications MedicationSigDispense QuantityRefillsLast FilledStart DateEnd DateStatus oxyCODONE-acetaminophen (PERCOCET) 5-325 mg per tablet Take 1 tablet by mouth every 4 (four) hours as needed for pain.Active magnesium 30 mg tablet Take 30 mg by mouth 2 (two) times a day.Active qnhauqiv-bviv-MP-calcium &mins (THERAGRAN-M) 9 mg iron-400 mcg tablet [...] times a week05/25/2020How often do you attend episcopalian or voodoo services?Never05/25/2020Do you belong to any clubs or organizations such as episcopalian groups, unions, fraternal or athletic groups, or [...] and heating?Not hard at all 05/25/2020PHQ-2AnswerDate RecordedTotal Zxfyq552[facility] [place] of Occupational Health - Occupational Stress QuestionnaireAnswerDate [...] from medical appointments or from getting medications?Patient zjymzaww05/23/2020In the past 12 months, has lack of transportation kept you from meetings, work, or from getting things needed for daily living?Patient dhzdilwt68/23/2020ChildcareAnswerDate RecordedDo problems getting child neurologist make it difficult for you to work or study?No05/25/2020 EmploymentAnswerDate RecordedDo you need help finding a local career center and/or a training program?No05/25/2020Purpose - LifeAnswerDate RecordedPurpose and direction in zvpaKnzyufh79/11/2021ex and Gender InformationValueDate RecordedSex Assigned at BirthNot on fileLegal DuhYxpg5306/08/2015 11:26 AM EDT Gender IdentityNot on fileSexual OrientationNot on file Last Filed Vital Signs Vital SignReadingTime TakenCommentsBlood Ypkaipse908/7409 1:13 PM EDT Ddnnz2992 1:13 PM FFGZjadrbcpuhh24.9 ??C (98.4 ??F)07/06/2020 1:13 PM EDTRespiratory Itdx224807/06/2020 1:13 PM EDTOxygen Tkxtxsshnz36%06/15/2020 1:00 PM EDTInhaled Oxygen Concentration--Ssmzvt39.7 kg (193 lb 6 oz)07/06/2020 1:13 PM VON611 lbs 6 kuFznyln914.2 cm (5' 7.01 )06/14/2020 1:12 PM EDTBody Mass Index 30.28006/14/2020 1:12 PM EDT Plan of Treatment Health MaintenanceDue DateLast DoneCommentsDepression Clgyvlyob38/02/1965Tobacco Qlfgtsnlr03/02/1965Adult BMI Nsbimburo92/02/1971DTaP,Tdap and Td Vaccines (1 - Tdap)1971Zoster (Shingles) Vaccine (1 of 2)2002Fall Risk Screening 2017Influenza Inznsed2707/04/2025RSV ( or age 60+ yrs) (1 - [...]
--- OUTSIDE RECORDS SUMMARY | 2025-09-15 14:50 | XMS_ITS | Clinical Summary ---
Author Organization [facility] Address [address] [place] [address] Care Team Providers Care Associate Curator Name Role Phone Vik Oreilly MD Primary Care Provider [phone] Allergies Active AllergyReactionsCriticalityNoted DateCommentsStatinsUnknownMedium 05/16/2023 Medications MedicationSigDispense [...] ComplexActive beta carotene (vitamin A) 7.5 MG (26177 UT) capsule Vitamin AActive rosuvastatin (Crestor) 10 [...] aortic aneurysm (AAA) without rupture 05/15/2023oronary artery mtkteau1805/15/2023History of total hip replacement 05/15/2023Other sequelae of cerebral sxmgxvlnen00/13/2023rimary osteoarthritis of right hip05/15/2023 Immunizations ImmunizationAdministration DatesNext DueInfluenza, trivalent, adjuvanted 09/02/2019 Social History Tobacco UseTypesPacks/DayYears UsedDateSmoking Tobacco: NeverSmokeless Tobacco: Never Tobacco Cessation:Counseling Given: Not Answered Alcohol UseStandard Drinks/WeekCommentsYes1 (1 standard drink = 0.6 oz pure alcohol)Sex and Gender InformationValueDate RecordedSex [facility] 05/09/2023 11:31 AM EDTLegal FcuHswx3501/15/2023 10:09 PM EDTGender IdentityMale 05/09/2023 11:31 AM EDTSexual OrientationNot on file Last Filed Vital Signs Vital SignReadingTime TakenCommentsBlood Pressure--Pulse--Temperature-- Respiratory Rate--Oxygen Saturation--Inhaled Oxygen Concentration--Ucmmpt92.2 kg (190 lb)05/16/2023 11:22 AM FXFSptnik883.6 cm (5' 6 )05/16/2023 11:22 AM EDTBody Mass Index30.67005/16/2023 11:22 AM EDT Plan of Treatment Not on file Insurance Care Teams Team MemberRelationshipSpecialtyStart DateEnd Date Vik Oreilly MD PCP - GeneralFaarly Medicine05/14/23
--- OUTSIDE RECORDS SUMMARY | 2025-09-15 14:50 | XMS_ITS | Clinical Summary ---
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,Hyperlipemia, mixedTAKE 1 TABLET [...] the morning.09/08/2025Discontinued(Ineffective) Active Problems ProblemNoted DateDiagnosed DateAcute oknrazdpzt52/06/9948Mtodlc65/06/2025 Aphthous ulcer09/08/20257206Lzptwvuktx77/06/2025ervical aralxnlwzjecq59/06/2025 Closed fracture of multiple ribs of both sides09/08/2025losed fracture of yqnwfse5509/08/2025losed fracture of shaft of ulna09/08/2025ontusion of lung without open wound into iiqlts7209/08/2025Derangement of lateral meniscus 09/08/2025Eczema of hand09/08/20252738Bpsos64/06/7203Vcqfxckijsas71/06/2025H/O adverse drug zdzccvuj47/06/2025Heart vlqoosj0709/08/2025Hemorrhage of rectum and anus09/08/2025History of inferior vena caval filter mhrrtxcyd04/06/2025 Homonymous lzprqqclji13/06/7210Qpjsxirmpzkssm94/06/2025Impacted cerumen 09/08/2025Laceration of liver09/08/2025Low back pain09/08/2025Lumbosacral spondylosis without /06/2025Macular ynitsq9709/08/2025Pneumothorax, pfwoapogz16/06/9083Dqbflkkgrr81/06/2025Infectious mydwobb1909/08/2025Prosthetic joint rruyymwfk78/06/2025Retroperitoneal /06/0286Vivycifgz71/06/2025 Elevated vnhnzpji06/06/2025MI 33.0-33.9,adult10/18/2024Morbid ytwyodr1610/18/2024 Skin tag10/18/2024History of total hip ailnhbxrqqj30rimary osteoarthritis of right hipSpinal stenosis of lumbar region 01/30/2023Sequelae of cerebral /30/2023rimary localized osteoarthritis of pelvic region and thigh01/30/2023resence of right artificial hip joint01/30/20235345Mvjhfttkhgrtja35/30/2023Occult blood in miqlvh9801/30/2023 Difficulty ngmisod8401/30/2023egeneration of intervertebral disc of lumbar region 01/30/2023erebrovascular accident (CVA)3Abnormal gait01/30/2023 Abdominal aortic aneurysm without hdyenwa5801/30/20239444Rrtlaqqawabl70/30/2023 Htumorzx27/30/2023oronary artery disease involving skokomish coronary artery of skokomish heart without angina mljodytn89/17/2022History of coronary artery bypass graft08/19/2022Essential lbvppefsksaj57/17/2022Cellulitis of hip, right 05/25/2020MGUS (monoclonal gammopathy of unknown significance)06/28/2013cute myocardial infarction of inferior wall05/19/20136661Guxjjablnrtgcr01/17/2013 Howfxcwgrvxsgm78/17/2013Old myocardial xqffcbblcu90/17/2013Visual field defect 05/19/2013 Encounters DateTypeDepartmentCare QiyvUnfvewfbkwo22/07/2025Orders Only [facility] [place] [address] [place] [address] Cami Benson MA 09/08/2025 11:40 AM ESTOffice Visit [facility] [address] [place] [facility] [place] [address] Ga Casas CNP Systolic heart failure, unspecified HF chronicity (CMS/HCC) (Primary Dx); 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; Hx of CABG; Elevated troponin; Benign hypertensive heart disease with heart failure (CMS/HCC); Acute anemia; Mixed hyperlipidemia; Bilateral lower extremity edema09/08/2025Orders Only [facility] [address] [place] [facility] [place] [address] Cami Benson MA Congestive heart failure, unspecified HF chronicity, unspecified heart failure type (CMS/HCC) (Primary Dx)09/08/2025Orders Only [facility] [address] [place] [address] Cami Benson MA Encounter for pre-operative examination (Primary Dx); Congestive heart failure, unspecified HF chronicity, unspecified heart failure type (CMS/HCC)07/11/2025Refill [facility] [address] [place] [facility] [place] [address] Mary Ureña MA Acute myocardial infarction of inferior wall (CMS/HCC)06/24/2025Refill [facility] [address] [facility] [place] [address] Pako Palacios MD 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; Hyperlipemia, mixedfrom Last 3 Months Immunizations ImmunizationAdministration DatesNext DueInfluenza, injectable, quadrivalent, preservative free07/31/2016Influenza, seasonal, iupgnfkydl75/05/2014Influenza, seasonal, injectable, preservative free, 6 moonths & older08/02/2015Influenza, trivalent, vbfwmeqqak04/31/2019Pneumococcal Polysaccharide OHS8483/09/2006 Unspecified Sars-Cov-2 Xipzticgaek14/27/2021,02/06/2021Zoster, live10/31/2016 Family History RelationNameStatusCommentsFatherAliveMotherDeceased Social History Tobacco UseTypesPacks/DayYears UsedDateSmoking Tobacco: FormerCigarettes Smokeless Tobacco: Never Tobacco Cessation:Counseling Given: Not Answered Alcohol UseStandard Drinks/WeekCommentsYes0 (1 standard drink = 0.6 oz pure alcohol)MODERATEUT Safety & EnvironmentAnswerDate RecordedFear of Current or Ex-PartnerNot on file12/25/2023Emotionally AbusedNot on file12/25/2023hysically AbusedNot on file12/25/2023Sexually AbusedNot on file12/25/2023hysically or Sexually AbusedNot on file12/25/2023Sex and Gender InformationValueDate Recorded Sex Assigned at [facility]bvg10/06/2025 11:41 AM ESTLegal YxlAchq4805/01/2022 9:50 PM EDTGender GtsmdxsdEwka73/06/2025 11:41 AM ESTSexual OrientationHeterosexual or Uidbjmnh51/06/2025 11:41 AM EST Last Filed Vital Signs Vital SignReadingTime TakenCommentsBlood Whiibxoh492/7509/08/2025 11:51 AM EST Zauob376809/08/2025 11:51 AM ESTTemperature--Respiratory Rate--Oxygen Saturation 94%09/08/2025 11:51 AM ESTInhaled Oxygen Concentration--Bmgqki34 kg (183 lb) 09/08/2025 11:51 AM JSGWxxnux724.2 cm (5' 7 )09/08/2025 11:51 AM ESTBody Mass Index28.6609/08/2025 11:51 AM EST Plan of Treatment DateTypeDepartmentCare Team (Latest Contact Info)Jsqgjgicrgf18/17/2025 11:30 AM ESTHospital Encounter [facility] [address] [place] [address] Pako Palacios MD [address] [facility] [place] [address] [facility] [place] [address] Systolic heart failure, unspecified HF chronicity (CMS/HCC); Elevated zwzgiwnw30/17/2025 11:30 AM EST - 09/19/2025 12:30 PM ESTSurgery [facility] [address] [place] [address] Pako Palacios MD [address] [place] [address] [facility] [place] [address] Coronary angiography [[id number] (CPT??)]Health MaintenanceDue DateLast DoneComments CT Hwcevphifnsl12/02/2645Rzvunevraxi28/02/1953olorectal Cancer Screening 1952FIT-DNA1952FIT1952FOBT1952Medicare Annual Wellness (AWV)1950 0695Xtclaoagicgta02/02/1953epression Ixjmqxvxt92/02/1965Adult Fxxnoqt8412/05/1974Zoster Vaccines (1 of 2)Pneumococcal Vaccine: 50+ Years (2 of 2 - PCV)Fall Risk Screening 2017COVID-19 Vaccine (5 - season), 02/27/2021, 02/06/2021, Additional history existsInfluenza Vaccine (#1), [...] patient's age to complete this topicRotavirus VaccinesAged OutNo longer eligible based on patient's age to complete this topic Procedures Procedure NamePriorityDate/TimeAssociated DiagnosisCommentsECG 12 LEAD UNIT WMUFIALMHNuegvir84/06/2025 12:15 PM EST Elevated troponin from Last 3 Months Results * ECG 12 lead unit performed (09/08/2025 12:15 PM EST)Specimen (Source) Anatomical Location / LateralityCollection Method / VolumeCollection Time Received Time Narrative Authorizing ProviderResult TypeResult StatusAdam Yessenia CNPECG ORDERABLESFinal Result from Last 3 Months Insurance Care Teams Team MemberRelationshipSpecialtyStart DateEnd Vik Oreilly MD [address] [facility] [address] [address] PCP - General07/10/22
--- OUTSIDE RECORDS SUMMARY | 2025-09-15 14:50 | XMS_ITS | Clinical Summary ---
Author Organization [facility] Address [address] [place], [place] [address] Care Team Providers Care Lithostripper Name Role Phone Vik Oreilly MD Primary Care Provider [phone] Allergies Active AllergyReactionsCriticalityNoted QazuFnxtffnjGjjxqkv-Ddg-Jju Reductase WabofravcyZeofikm04/15/2013 Medications MedicationSigDispense QuantityRefillsLast FilledStart DateEnd DateStatus aspirin, enteric coated (ADULT LOW DOSE ASPIRIN) 81 mg EC tablet Take 1 tablet by mouth once daily.ctive Dell-3 Fatty Acids (FISH OIL) 500 mg cap [...] Take 500 mg by mouth once daily.Active Ubidecarenone-Dell 3-Vit E (COQ-10 & FISH OIL) 50-300-30 [...] unknown significance)06/28/2013 Resolved Problems ProblemNoted DateDiagnosed DateResolved OfgjScfnwsxlmfhtwfotvyzprv84/17/2013 03/25/2013 Immunizations ImmunizationAdministration DatesNext Duepneumococcal polysaccharide (PPV23) vaccine, 23 valent (PNEUMOVAX 23)07/14/2006 Social History Tobacco UseTypesPacks/DayYears UsedDateSmoking Tobacco: NeverSmokeless Tobacco: NeverAlcohol UseStandard Drinks/WeekCommentsYes0 (1 standard drink = 0.6 oz pure alcohol)6-7 per week last drink 07/12/13Sex and Gender InformationValueDate RecordedSex Assigned at BirthNot on fileLegal ShoNfaq1602/10/2013 9:19 AM EDT Gender IdentityNot on fileSexual OrientationNot on file Last Filed Vital Signs Vital SignReadingTime TakenCommentsBlood Smeozhfq329/9608 10:58 AM EDT second attempt 145/12Djhth3502/23/2016 10:58 AM PRZUgpllyjqhod40 ??C (98.6 ??F) 06/25/2016 10:58 AM EDTRespiratory Etkm5327 10:58 AM EDTOxygen Mvpoffugyl30%07/18/2013 1:39 PM EDTInhaled Oxygen Concentration--Mfaqal61.8 kg (193 lb 9.6 oz)06/25/2016 10:58 AM YGLTzdizx936.6 cm (5' 5.98 )06/25/2016 10:58 AM EDTBody Mass Index31.26006/25/2016 10:58 AM EDT Plan of Treatment Health MaintenanceDue DateLast DoneCommentsAnxiety Hdieinnlc75/02/1971Depression Dmrzuwqff02/02/1971Hepatitis C Koseliupu95/02/1971DTaP,Tdap,Td Vaccine (1 - Tdap)1971Lipid Fyiwhfmbe46/02/1988CT Ogxstjamoxyn07/02/1998Cologuard (FIT-DNA)12/05/19971231Ozgloxtbwar58/02/1998Colorectal Cancer Sgssecwnq56/02/1998 Fecal Occult Blood12/05/19977504Vtscuymbyqetw08/02/1998Shingrix Vaccine (1 of 2) 2002Pneumococcal Vaccine: 50+ (2 of 2 - PCV)Diabetes Gtilwjnxe93, 06/05/2020, 05/27/2020, Additional history exists Advance Directive Agislipsdn90/01/2025ovid-19 Vaccine (1 - 2024- season) 2025Influenza Vaccine (#1)2025RSV Vaccine (1 - 1-dose 75+ series) 2027 Medical Devices ImplantedTypeAreaManufacturerDevice IdentifierShelf Expiration DateModel / Serial / LotMesh Srg Surgipro 14x9in Armando - [id number] [facility]ed:[facility] [id number] / / Procedures Procedure NamePriorityDate/TimeAssociated DiagnosisCommentsCOMPREHENSIVE METABOLIC JYGMGWlujbsc63/16/2016 11:04 AM EDT MGUS (monoclonal gammopathy of [...] Bilirubin, Total0.50.0 - 1.5 mg/dL06/18/2016 9:48 PM [facility] LABORATORYAlkaline Uvajqeyrzdb3790 - 150 U/L06/18/2016 9:48 PM [facility] XZUBAKWJOTEMS197 - 40 U/L06/18/2016 9:48 PM [facility] FNGXMZFBFJBbegqwd426(H)65 - 100 mg/dL06/18/2016 9:48 PM [facility] YDUTDLYDTVZUI6117 - 25 mg/dL06/18/2016 9:48 PM [facility] LABORATORYCreatinine0.790.70 - 1.40 mg/dL06/18/2016 9:48 PM [facility] WXDRAIIJZDOctsgd019428 - 146 mmol/L06/18/2016 9:48 PM [facility] LABORATORYPotassium4.43.5 - 5.0 mmol/L06/18/2016 9:48 PM EDT [facility] FAEVJFUENAIrdofkyf12775 - 110 mmol/L06/18/2016 9:48 PM [facility] XYXSXOBMNFFI655(L)23 - 32 mmol/L06/18/2016 9:48 PM [facility] LABORATORYAnion Gap16(H)0 - 15 mmol/L06/18/2016 9:48 PM [facility] ZKQUKCJRIZGXR250 - 50 U/L06/18/2016 9:48 PM EDT [facility] LABORATORYeGFR->6008 9:48 PM T [facility] LABORATORYeGFR-All Other Races>60.06/18/2016 9:48 PM T [facility] LABORATORYComment: eGFR (Estimated GFR) Units of [...] StatusAlfred P VargasLABORATORYFinal ResultPerforming OrganizationAddressCity/State/ZIP CodePhone Number [facility] [address] [place] [address] from Last 3 Months or Most Recently Relevant to Health Maintenance Care Teams Team MemberRelationshipSpecialtyStart DateEnd Date Vik Oreilly MD PCP - GeneralFamily Medicine02/10/13
--- OUTSIDE RECORDS SUMMARY | 2025-09-15 14:50 | XMS_ITS | Encounter Summary ---
Author Organization [facility] Address [address] [place] [address] Care Team Providers Care Cloth Pattern Maker Name Role Phone Vik Oreilly MD Primary Care Provider [phone] Encounter Details DateTypeDepartmentCare Team (Latest Contact Info)Ihlixlicgdl15/06/2025Orders Only [facility] Heart at [facility] [address] [place] [address] Cami Benson MA Congestive heart [...] file12/25/2023Sex and Gender InformationValueDate RecordedSex Assigned at EmmuaNpoy02/06/2025 11:41 AM EST Legal BmhQiiw1605/01/2022 9:50 PM EDTGender UjgolniwQhhp80/06/2025 11:41 AM EST Sexual OrientationHeterosexual or Rcngqtji02/06/2025 11:41 AM ESTdocumented as of this encounter Functional Status * BPAnswerDate of ZvfpqltyftYlooby005/7509/08/2025 11:51 AM Mary Parr MA * PulseAnswerDate of OyfbdgtryaTcqpni1058 11:51 AM Mary Parr MA * Audit Alcohol ScreeningQuestionAnswerDate of AssessmentAuthorHow often do you have a drink containing alcohol? 11:54 AM Mary Parr MAHow many standard drinks containing alcohol do you have on a typical day?0 09/08/2025 11:54 AM Mary Parr MA * Patient PositionAnswerDate of VzmwvdhrnwLpaxxtDzvvjic96/06/2025 11:51 AM Mary Bear MA * BPAnswerDate of BpofnqrihqTrktog336/7509/08/2025 11:51 AM Mary Parr MA * PulseAnswerDate of InafbpgbvuGezwdf8160/06/2025 11:51 AM Mary Parr MA * DlH8JvrndeHive of PhtjjqiaqaOuylmk7846/06/2025 11:51 AM Mary Parr MA * BP LocationAnswerDate of AssessmentAuthorRight arm09/08/2025 11:51 AM Mary Bear MA * Audit Alcohol ScreeningQuestionAnswerDate of AssessmentAuthorHow often do you have a drink containing alcohol? 11:54 AM Mary Parr MAHow many standard drinks containing alcohol do you have on a typical day?0 09/08/2025 11:54 AM Mary Parr MA * Patient PositionAnswerDate of GckhalubyfGkszbtAwurvxq59/06/2025 11:51 AM Mary Bear MA documented as of this encounter Plan of Treatment DateTypeDepartmentCare Team (Latest Contact Info)Ugtrnqucwlu18/17/2025 11:30 AM ESTHospital Encounter [facility] Vascular Lab [address] [place] [phone] Pako Palacios MD [address] [facility] [address] [place] [phone] Systolic heart failure, unspecified HF chronicity (CMS/HCC); Elevated fjioyaes32/17/2025 11:30 AM EST - 09/19/2025 12:30 PM ESTSurgery [facility] Vascular Lab [address] [place] [phone] Pako Palacios MD [address] [place] [address] Coronary angiography [[id number] (CPT??)]documented as of this encounter Visit Diagnoses Diagnosis Congestive heart failure, unspecified HF chronicity, unspecified heart failure type (CMS/HCC)- Primary Elevated troponin- Primary Other abnormal blood chemistry Systolic heart failure, unspecified HF chronicity (CMS/HCC) Systolic heart failure, unspecified HF chronicity (CMS/HCC) Elevated troponin Other abnormal blood chemistry documented in this encounter Care Teams Team MemberRelationshipSpecialtyStart DateEnd Vik Oreilly MD [address] [facility] [place] [place] [address] PCP - General07/10/22documented as of this encounter
--- OUTSIDE RECORDS SUMMARY | 2025-09-15 14:50 | XMS_ITS | Encounter Summary ---
Author Organization [facility] Address [address] [place] [address] Care Team Providers Care Lamps Tester And Inspector Name Role Phone Vik Oreilly MD Primary Care Provider [phone] Encounter Details DateTypeDepartmentCare Team (Latest Contact Info)Obflpsrxean53/06/2025Orders Only [facility] Heart at [facility] [address] [place] [address] Cami Benson MA Encounter for [...] file12/25/2023Sex and Gender InformationValueDate RecordedSex Assigned at VojdgKwmw86/06/2025 11:41 AM EST Legal UbxVosr3305/01/2022 9:50 PM EDTGender XrpgdnrgApur64/06/2025 11:41 AM EST Sexual OrientationHeterosexual or Nefyfijx14/06/2025 11:41 AM ESTdocumented as of this encounter Functional Status * BPAnswerDate of IxiwfrpszkVqfkar939/7509/08/2025 11:51 AM Mary Parr MA * PulseAnswerDate of RzgonchombPjykal8463 11:51 AM Mary Parr MA * Audit Alcohol ScreeningQuestionAnswerDate of AssessmentAuthorHow often do you have a drink containing alcohol? 11:54 AM Mary Parr MAHow many standard drinks containing alcohol do you have on a typical day?0 09/08/2025 11:54 AM Mary Parr MA * Patient PositionAnswerDate of GhkvxqwswjRfzjueIstndof45/06/2025 11:51 AM Mary Bear MA * BPAnswerDate of FmennvdhjbVafheu856/7509/08/2025 11:51 AM Mary Parr MA * PulseAnswerDate of XtzlnlbwrzBeqxmy4307/06/2025 11:51 AM Mary Parr MA * EpS6OvoeqmPbaa of UtlsrfgsauKzjecb4695/06/2025 11:51 AM Mary Parr MA * BP LocationAnswerDate of AssessmentAuthorRight arm09/08/2025 11:51 AM Mary Bear MA * Audit Alcohol ScreeningQuestionAnswerDate of AssessmentAuthorHow often do you have a drink containing alcohol? 11:54 AM Mary Parr MAHow many standard drinks containing alcohol do you have on a typical day?0 09/08/2025 11:54 AM Mary Parr MA * Patient PositionAnswerDate of BhsqvjkslxEinyirEnozbam81/06/2025 11:51 AM Mary Bear MA documented as of this encounter Plan of Treatment DateTypeDepartmentCare Team (Latest Contact Info)Pmxzssoukgc79/17/2025 11:30 AM ESTHospital Encounter [facility] Vascular Lab [address] [place] [phone] Pako Palacios MD [address] [facility] [address] [place] [phone] Systolic heart failure, unspecified HF chronicity (CMS/HCC); Elevated suxyvrfp73/17/2025 11:30 AM EST - 09/19/2025 12:30 PM ESTSurgery [facility] Vascular Lab [address] [place] [phone] Pako Palacios MD [address] [facility] [address] [phone] Coronary angiography [[id number] (CPT??)]NameTypePriorityAssociated DiagnosesOrder ScheduleCBC and differentialLabRoutine Encounter for pre-operative examination Expected: 09/08/2025 (Approximate), Expires: 09/08/2026asic metabolic panelLab Routine Encounter for pre-operative examination Expected: 09/08/2025 (Approximate), Expires: 09/08/2026documented as of this encounter Visit Diagnoses Diagnosis Encounter for pre-operative examination- Primary Congestive heart failure, unspecified HF chronicity, unspecified heart failure type (CMS/HCC) Elevated troponin- Primary Other abnormal blood chemistry Systolic heart failure, unspecified HF chronicity (CMS/HCC) Systolic heart failure, unspecified HF chronicity (CMS/HCC) Elevated troponin Other abnormal blood chemistry documented in this encounter Care Teams Team MemberRelationshipSpecialtyStart DateEnd Date Vik Oreilly MD [address] [facility] [place] [address] PCP - General07/10/22documented as of this encounter
--- OUTSIDE RECORDS SUMMARY | 2025-09-15 14:50 | XMS_ITS | Encounter Summary ---
Author Organization [facility] Address [address] [place] [address] Care Team Providers Care Tests Superintendent Name Role Phone Vik Oreilly MD Primary Care Provider [phone] Encounter Details DateTypeDepartmentCare Team (Latest Contact Info)Vtmlazjmkwb54/07/2025Orders Only [facility] Heart at [facility] [address] [place] [address] Cami Benson MA Social History Tobacco UseTypesPacks/DayYears UsedDateSmoking Tobacco: FormerCigarettes Smokeless Tobacco: NeverAlcohol UseStandard Drinks/WeekCommentsYes0 (1 standard drink = 0.6 oz pure alcohol)MODERATEUT Safety & EnvironmentAnswerDate Recorded Fear of Current or Ex-PartnerNot on file12/25/2023Emotionally AbusedNot on file 4Physically AbusedNot on file12/25/2023Sexually AbusedNot on file 4Physically or Sexually AbusedNot on file12/25/2023Sex and Gender InformationValueDate RecordedSex Assigned at JkoxlCuko54/06/2025 11:41 AM EST Legal YvlFcpu3505/01/2022 9:50 PM EDTGender CxycfkrpWphy44/06/2025 11:41 AM EST Sexual OrientationHeterosexual or Itryecom64/06/2025 11:41 AM ESTdocumented as of this encounter Plan of Treatment DateTypeDepartmentCare Team (Latest Contact Info)Whemxnsahpy43/17/2025 11:30 AM ESTHospital Encounter [facility] Vascular Lab [address] [place] [address] Pako Palacios MD [address] [place] [phone] Systolic heart failure, unspecified HF chronicity (CMS/HCC); Elevated adbfnysh98/17/2025 11:30 AM EST - 09/19/2025 12:30 PM ESTSurgery [facility] Vascular Lab [address] [place] [address] Pako Palacios MD [address] [place] [phone] Coronary angiography [[id number] (CPT??)]documented as of this encounter Visit Diagnoses Not on filedocumented in this encounter Care Teams Team MemberRelationshipSpecialtyStart DateEnd Date Vik Oreilly MD [address] [facility] [place] [address] PCP - General07/10/22documented as of this encounter
--- OUTSIDE RECORDS SUMMARY | 2025-09-15 14:51 | XMS_ITS | CCD ---
Author Organization [facility] CliniSywy Care Team Providers Care Associate Software Developer Name Role Phone AMBER KIRBY Admitting Unavailable [...] Admitting Unavailable Daksha Doll Primary Care Physician Haroon Huntley Attending Unavailable Haroon Huntley Admitting Unavailable Haroon HUNTLEY Attending Unavailable Daksha Doll Referring Unavailable Haroon HUNTLEY Attending Unavailable MOUKARBELBRYCE Attending Unavailable AMYJIN Attending Unavailable Allergies Allergy ClassificationReported Allergen(s)Allergy TypeDate of OnsetReaction(s) Facility (1 source)black walnut pollen extractDrug AllergyThe [facility] (1 source)Hmg-Coa Reductase Inhibitors (Statins); Translations: [statins] Propensity to adverse reactions (disorder)[facility] Repository (1 source)No Known Medication Allergies; Translations: [No Known Medication Allergies]Propensity to adverse reactions (disorder)[facility] Repository Medications Current Medications MedicationDrug Class(es)DatesSig (Normalized)Sig (Original)aspirin 81 mg delayed release oral tablet (2 sources)Platelet Aggregation Inhibitor, Nonsteroidal Anti-inflammatory Drug Start: 25-22-3820jghk 1 tablet by mouth once dailyaspirin 81 mg Oral EC Tab 81 mg = 1 tab(s), Oral, Daily Start Date: 06/19/21 Status: Orderedatenolol 50 mg oral tablet (2 sources)beta-Adrenergic BlockerStart: 38-29-8403kmbw 1 tablet by mouth once dailyatenolol 50 mg Tab 50 mg = 1 tab(s), Oral, Daily Start Date: 06/19/21 Status: OrderedOsteo Bi-Flex (2 sources)Start: 31-05-7207Smtez Bi-Flex Refill(s) 0 Start Date: 02/16/24 Status: Orderedezetimibe 10 mg oral tablet (2 sources)Dietary Cholesterol Absorption InhibitorStart: 16-43-4480tmze 1 tablet by mouth once dailyezetimibe 10 mg Tab 10 mg = 1 tab(s), Oral, Daily Start Date: 06/19/21 Status: OrderedFish Oils (2 sources)Start: 19-55-0865hkof 1200 mg by mouth once dailyFish Oil 1,200 mg, Oral, Daily Start Date: 06/19/21 Status: Orderedlisinopril 10 mg oral tablet (2 sources)Angiotensin Converting Enzyme InhibitorStart: 89-76-9747vrzn 1 tablet by mouth once dailylisinopril 10 mg Tab 10 mg = 1 tab(s), Oral, Daily Start Date: 06/19/21 Status: OrderedMultivitamin preparation (2 sources)Start: 75-68-6245fzoa 1 tablet by mouth once dailymultivitamin 1 tab(s), Oral, Daily, Refill(s) 0 Start Date: 02/16/24 Status: Orderedrosuvastatin calcium 10 mg oral tablet (2 sources)HMG-CoA Reductase InhibitorStart: 32-26-6648dzuk 1 tablet by mouth once dailyrosuvastatin 10 mg Tab 10 mg = 1 tab(s), Oral, Daily Start Date: 06/19/21 Status: Ordered Problems Active Problems Problem ClassificationProblemDateDocumented DateEpisodic/ChronicAcute cerebrovascular disease (2 sources)Cerebrovascular qfbhygoq06-50-5597TlgwssiOoacc myocardial infarction (2 sources)Myocardial rplcitghmy91-16-6493LmwfqzvPmydvfsj (2 sources)Ltiddaqb39-69-3345PrkoddkEhydihfgeu heart failure; nonhypertensive (2 sources)Unspecified systolic (congestive) heart failure; Translations: [Unspecified systolic (congestive) heart failure]Onset: 23-49-8239Qdfqzea Coronary atherosclerosis and other heart disease (7 sources)Atherosclerotic heart disease of [place] coronary artery without angina pectoris; Translations: [Coronary arteriosclerosis]Onset: 08-19-2022 62-53-4193XjejjdzRiawluyorr and other anemia (2 sources)Anemia, unspecified; Translations: [Anemia, unspecified]Onset: 55-73-6546PvsurwovZuvfbvrv mellitus without complication (4 sources)Other abnormal glucose; Translations: [OTHER ABNORMAL GLUCOSE]Onset: 80-99-6945MmcvguxyAasesaxmd of lipid metabolism (9 sources)Hyperlipidemia, unspecified; Translations: [Hyperlipidemia]Onset: 67-60-7727QimpdvzLvuvrpsyx hypertension (5 sources)Essential (primary) hypertension; Translations: [Hypertensive disorder]Onset: 541758-01-3650BhkibyrNnonaaa and fatigue (1 source)Other fatigue; Translations: [OTHER FATIGUE]Onset: 42-78-2386Ucxddcuf Osteoarthritis (2 sources)Nspogxsgvmztqk29-88-6424TptwdbbVfhyslozrgbb (2 sources)Kwakokmoydaa33-31-6654DrlzaqpUonus gastrointestinal disorders (2 sources)Occult blood in lqenvp92-34-5897XgxjnatjQmixz nutritional; endocrine; and metabolic disorders (2 sources)Body mass index 30+ - huabbrx74-17-8434AfhvluxJtynr nutritional; endocrine; and metabolic disorders (2 sources)Morbid yzfvydc76-06-0018KhvvxcwBehff screening for suspected conditions (not mental disorders or infectious disease) (4 sources)Encounter for screening for malignant neoplasm of prostate; Translations: [Encounter for screening for malignant neoplasm of rectum]Onset: 28-58-7337TqhfongmQytis skin disorders (2 sources)Hypertrophic condition of skin; Translations: [Other hypertrophic disorders of the skin]Onset: 86-84-4861GkqwfbliHirag skin disorders (2 sources)Skin oxr01-12-7286RmuskdcnNoib-; endo-; and myocarditis; cardiomyopathy (except that caused by tuberculosis or sexually transmitted disease) (2 sources)CardiomyopathyOnset: 240243-82-3272SnnfrmbWukybcvgadr; intervertebral disc disorders; other back problems (2 sources)Degeneration of lumbar intervertebral wwtx66-62-1743Pnuztmu Spondylosis; intervertebral disc disorders; other back problems (2 sources)Spinal stenosis of lumbar iwwckw10-97-8133Ovadjkqw Past or Other Problems Problem ClassificationProblemDateDocumented DateEpisodic/ChronicCoronary atherosclerosis and other heart disease (2 sources)Presence of aortocoronary bypass graft; Translations: [Presence of aortocoronary bypass graft]Onset: 02-67-8657JzdajzeaHhxpu liver diseases (2 sources)Abnormal levels of other serum enzymes; Translations: [Abnormal levels of other serum enzymes]Onset: 08-86-8208Vegwwkow Results Test NameValueInterpretationReference RangeFacilityOrders Onlyon 09-09-2025 Orders [id number] Omkar Delatorreelin Smith 1950 M Date Provider Department Center 09/09/2025 KYRA SANTIZO RONAL [facility] Family History Family history unknown: Yes Family Status - Relation Status Age at Mother Father AliveNormalUniCleveland Clinic [facility] GeneralOffice Visiton 09-08-2025 Follow-up [id number] Gretchen Delatorre 1950 M Date Provider Department Center 09/08/2025 [id number] DALLAS RONAL [facility] Family History Family history unknown: Yes Family Status - Relation Status Age at Mother Father Alive Level of Service:00685 [place] OFFICE/OUTPATIENT ESTABLISHED HIGH MDM 40 MIN Reason for Visit and Comments: Follow-up [713810] - Patient is here today for a decreased EF and increased tropnins. Recent Echo and labs. Patient denies chest pain, palpitations/racing heart, dizziness/lightheaded, SOB/MASON with walking distance Previous [place] [Other] Cardiomyopathy [104] Hyperlipidemia [182] [place] [Other] Coronary Artery Disease [187] Shortness of Breath [999084] - SOB/MASON with walking 3 weeks ago the SOB increased Hypertension [755327] Atrial Fibrillation [80] Edema [7686235749] - Bilateral ankle swelling Congestive Heart Failure [127]NormalKettering Health Hamilton36on ----- Message ----- From: Bryce Palacios MD Sent: 03/27/2025 12:18 PM EDT To: Sunita Blanco MA His echo was ok, follow up as planned. Advised patient of Dr. Palacios's finding. Patient verbalized understanding.[facility] SystemOrders Onlyon 38-04-1286Hgohic [id number] Gretchen Delatorre 1950 M Date Provider Department Center 03/24/2025 [id number], [facility] RONAL [facility] Family History Family history unknown: YesNormalUniversKettering Health Behavioral Medical CenterOffice Visit on 34-28-1104Urtgkg-up [id number] Gretchen Delatorre 1950 M Date Provider Department Center 10/18/2024 367-BRYCE PALACIOS RONAL [facility] Family History Family history unknown: Yes Level of Service:91632 [place] OFFICE/OUTPATIENT ESTABLISHED LOW [facility] HospitalPathology Noteon 45-32-2689Dkewvqoxv Note [id number]#1.00Protestant HospitalAmbulatory Visit Summaryon 08-56-7712Xzmvowoltp Visit Summary GRETCHEN DELATORRE :1950 Visit Date:03/02/2024 [...] you for choosing us for your care. [facility] Office/Clinic Noteon 02-42-9395Gbaqvmf Surgery Office/Clinic NoteChief Complaint in-office excisional biopsy [...] Recorded SARS-CoV-2 (COVID-19) mRNA BNT-162b2 vax 02/06/2021 RecordedNoGreen Cross HospitalComment on above:Result Comment: Electronically Signed By: ARIAN JAIME, Haroon Cancino.br\Date and Time Signed: 03/02/24 15:16 EDTLon 03-02-2024L Specimen: [id number] Received: 03/03/24 Status: MICHELLE Keller Num: [id number] Spec Type: Surgical Subm Dr: Haroon Huntley MD FACS Tissues: A Skin-Other than Cyst, tag, debridement or plastic repair (RT CHEST WALL) Procedures: HE/4, Gross/Micro L4 Age/ Patient Sex Location Account Attending Physician Gretchen Delatorre 73/M LABELL [id number] Haroon Huntley MD FACS SPEC NUM: [id number] RECD: 03/03/24 STATUS: MICHELLE KELLER NUM: [id number] PIYUSH: 03/02/24- SUBM DR: Haroon Huntley MD FACS ENTERED: 03/03/[address]: [facility] SPEC TYPE: Surgical DEPT: [...] skin tag over several years CPT Codes 08208 Specimen: [id number] Received: 03/03/24 Status: MICHELLE Keller Num: [id number] Spec Type: Surgical Subm Dr: Haroon Huntley MD FACS Tissues: A Skin-Other than Cyst, tag, debridement or plastic repair (RT CHEST WALL) Procedures: CASSANDRA/Lelo, Gross/Micro L4 Patient: Gretchen Delatorre [id number] (Continued) Signed (signature on file) Misael Erazo MD 03/04/[address] [place] [address] Physician GroupAmbulatory Visit Summaryon 64-18-6503Rzphudvpqk Visit Summary GRETCHEN DELATORRE :1950 Visit Date:02/18/2024 [...] JAIME, Haroon Ellison Where: General Surgery Arian/Callie FigueroaGreen Cross Hospital Facesheeton 55-37-7217Lxiidwluk [id number]#1.00TIFOhioHealth Nelsonville Health CenterPhysician Referralon 50-75-3585Bswppeyno Referral [id number]#1.00TIFOhioHealth Nelsonville Health CenterPhysician Referralon 67-65-3963Ijtdsxfqh Referral [id number]#1.00TIFOhioHealth Nelsonville Health CenterOCC BLD IMMUNO SCREENon 83-75-1584LYFMJN BLOODPositiveAbnormalNEGATIVEThe [facility] SystemComment on above:Performed By: #### CMP, CK, LIPID #### [facility] [address] [address] [address] Tyrell Brooks AUTO DIFFon 27-68-3305BBUX #0.0 103/ulNormal0.0-0.1The [facility] SystemComment on above:Performed By: #### CBC #### [facility] [address] [address] [address] Tyrell CasillasBasophils/100 WBC (Bld)0.5 %Normal0.2-2.0[facility] Comment on above:Performed By: #### CBC #### [facility] [address] [address] [address] Tyrell Crenshaw #0.2 103/ulNormal0.0-0.7The [facility] SystemComment on above: Performed By: #### CBC #### [facility] [address] [address] [address] Tyrell Cernaosinophils/100 WBC (Bld)2.6 %Normal0.9-7.0[facility] Comment on above:Performed By: #### CBC #### [facility] [address] [address] [address] Tyrell Cernarythrocyte distribution width (RBC) [Ratio]11.7 %Rrssqr24.0-15.0 The [facility] SystemComment on above:Performed By: #### CBC #### [facility] [address] [place] [address] Dr. Tyrell CasillasHematocrit (Bld) [Volume fraction]39.9 %Critically low42.0-54.0 The [facility] SystemComment on above:Performed By: #### CBC #### [facility] [address] [place] [address] Dr. Tyrell CasillasHemoglobin (Bld) [Mass/Vol]13.9 g/dLCritically low14.0-18.0The [facility] SystemComment on above:Performed By: #### CBC #### [facility] [address] [place] [address] Dr. Tyrell Bermeo #0.02 10e3/ulNormal0.00-0.03The [facility] SystemComment on above:Performed By: #### CBC #### [facility] [address] [place] [address] Dr. Tyrell Bermeo %0.3 %Normal0.0-0.5The [facility] SystemComment on above: Performed By: #### CBC #### [facility] [address] [place] [address] Dr. Tyrell Boyle #1.7 103/ulNormal1.2-3.8The [facility] SystemComment on above:Performed By: #### CBC #### [facility] [address] [place] [address] Dr. Tyrell Lenzhocytes/100 WBC (Bld)28.1 %Auhusk41.5-60.0The [facility] SystemComment on above:Performed By: #### CBC #### [facility] [address] [place] [address] Dr. Tyrell BauerUAL DIFF REQNONormalThe [facility] SystemComment on above: Performed By: #### CBC #### [facility] [address] [place] [address] Dr. Tyrell Perez (RBC) [Entitic mass]32.3 wjVduvrv95.9-34.0The [facility] SystemComment on above:Performed By: #### CBC #### [facility] [address] [place] [address] Dr. Tyrell Villarreal (RBC) [Mass/Vol]34.8 g/gUVhdzud98.9-35.2The [facility] SystemComment on above:Performed By: #### CBC #### [facility] [address] [place] [address] Dr. Tyrell Su (RBC) [Entitic vol]92.8 jRWqymvb31.0-94.0The [facility] SystemComment on above:Performed By: #### CBC #### [facility] [address] [place] [address] Dr. Tyrell Elizondo #0.5 103/ulNormal0.3-0.8The [facility] SystemComment on above:Performed By: #### CBC #### [facility] [address] [place] [address] Dr. Tyrell Patelocytes/100 WBC (Bld)8.5 %Normal1.7-12.0The [facility] Comment on above:Performed By: #### CBC #### [facility] [address] [place] [address] Dr. Tyrell Willson #3.5 103/ulNormal1.4-6.5The [facility] SystemComment on above:Performed By: #### CBC #### [facility] [address] [place] [address] Dr. Tyrell Oconnorutrophils/100 WBC (Bld)60.0 %Wbdxuq17.0-75.0The [facility] SystemComment on above:Performed By: #### CBC #### [facility] [address] [place] [address] Dr. Tyrell Chowdhurylet mean volume (Bld) [Entitic vol]8.3 fLCritically low 9.5-13.5The [facility] SystemComment on above:Performed By: #### CBC #### [facility] [address] [place] [address] Dr. Tyrell CasillasPLT200 103/gaRqwowc851-999Vod [facility] SystemComment on above: Performed By: #### CBC #### [facility] [address] [place] [address] Dr. Tyrell CasillasRBC4.30 106/ulCritically low4.70-6.10The [facility] on above:Performed By: #### CBC #### [facility] [address] [address] [address] Tyrell CasillasWBC5.9 103/ulNormal4.0-11.0The [facility] on above: Performed By: #### CBC #### [facility] [address] [address] [address] Tyrell CasillasCPKon 33-62-8211WQ [Catalytic activity/Vol]505 U/LCritically high 39-308The [facility] on above:Performed By: #### CK #### [facility] [address] [place] [address] Dr. Tyrell CasillasFREE T3on 15-19-3346TLRC T32.98 pg/mlLNormal2.18-3.98The [facility] on above:Performed By: #### T4, CMP, TSH, FT3, LIPID #### [facility] [address] [place] [address] Dr. Tyrell CasillasGLYCOHEMOGLOBIN A1Con 34-22-6852EKQ RECOMMENDATIONSEE BELOWNormal The [facility] SystemComsinai-grace hospital on above:Result Comment: ADA RECOMMENDED LIMIT 4.0 - 6.0 ADA THERAPEUTIC TARGET < 7.0 ACTION SUGGESTED > 7.0Performed By: #### CMP, CK, LIPID #### [facility] [address] [place] [address] Dr. Tyrell CasillasGlucose [Mass/Vol]131 mg/dLNormalThe [facility] on above:Performed By: #### CMP, CK, LIPID #### [facility] [address] [address] [address] Tyrell CasillasHbA1c (Bld) [Mass fraction]6.2 %Normal4.5-6.2The [facility] on above:Performed By: #### CMP, CK, LIPID #### [facility] [address] [place] [address] Dr. Tyrell CasillasLIPID PROFILEon 84-11-6236LWQT-HDL RATIO NORMSTriHealthComment on above:Result Comment: 3.3 - 4.4 LOW RISK 4.4 - 7.1 AVERAGE RISK 7.1 - 11.0 MODERATE RISK >11.0 HIGH RISKPerformed By: #### T4, CMP, TSH, FT3, LIPID #### [facility] [address] [address] [address] Tyrell CasillasCholesterol [Mass/Vol]150 mg/dLNormal<=200[facility] Comment on above:Performed By: #### T4, CMP, TSH, FT3, LIPID #### [facility] [address] [address] [address] Tyrell CasillasCholesterol in HDL [Mass/Vol]42 mg/uMNooshz24-16EiiFirelands Regional Medical CenterComment on above:Performed By: #### T4, CMP, TSH, FT3, LIPID #### [facility] [address] [address] [address] Tyrell Harperesterol in LDL [Mass/Vol]84.2 mg/dLNoGreene Memorial HospitalComment on above:Performed By: #### T4, CMP, TSH, FT3, LIPID #### [facility] [address] [address] [address] Tyrell Rosario.total/Cholesterol in HDL [Mass ratio]3.6 {ratio} NormalFirelands Regional Medical CenterComment on above:Performed By: #### T4, CMP, TSH, FT3, LIPID #### [facility] [address] [place] [address] Dr. Tyrell Beaver NORMAL> or = 60 mg/dl - LOW CARDIOVASCULAR RISK <40 mg/dl - HIGH CARDIOVASCULAR RISKThe University of Toledo Medical CenterComment on above:Performed By: #### T4, CMP, TSH, FT3, LIPID #### [facility] [address] [place] [address] Dr. Tyrell Garcia CALC NORMALSEE Delaware County HospitalComment on above:Result Comment: <100 mg/dl OPTIMAL 100 - 129 mg/dl NEAR OR ABOVE OPTIMAL 130 - 159 mg/dl BORDERLINE HIGH 160 - 189 mg/dl HIGH >190 mg/dl VERY HIGH Performed By: #### T4, CMP, TSH, FT3, LIPID #### [facility] [address] [address] [address] Tyrell CasillasTriglyceride [Mass/Vol]119 mg/dLNormal<=150The [facility] Comment on above:Performed By: #### T4, CMP, TSH, FT3, LIPID #### [facility] [address] [address] [address] Tyrell CasillasVLDL CALC23.8 mg/dLNormalThe [facility] SystemComment on above: Performed By: #### T4, CMP, TSH, FT3, LIPID #### [facility] [address] [place] [address] Dr. Tyrell CasillasPRODiego 14(COMP METB)on 93-01-6058Pzjzzev [Mass/Vol]4.5 g/dLNormal 3.4-5.0The [facility] SystemComment on above:Performed By: #### T4, CMP, TSH, FT3, LIPID #### [facility] [address] [address] [address] Tyrell CasillasAlbumin/Globulin [Mass ratio]1.1 {ratio}NormalThe [facility] SystemComment on above:Performed By: #### T4, CMP, TSH, FT3, LIPID #### [facility] [address] [address] [address] Tyrell Haile [Catalytic activity/Vol]57 U/KPqbaro30-218Tif [facility] Hospitalment on above:Performed By: #### T4, CMP, TSH, FT3, LIPID #### [facility] [address] [address] [address] Tyrell Martin [Catalytic activity/Vol]49 U/WCbkmzd81-41Yod [facility] Hospitalment on above:Performed By: #### T4, CMP, TSH, FT3, LIPID #### [facility] [address] [address] [address] Tyrell Whittaker gap [Moles/Vol]12.7 mmol/LNormalFirelands Regional Medical Center Comment on above:Performed By: #### T4, CMP, TSH, FT3, LIPID #### [facility] [address] [address] [address] Tyrell CasillasAST [Catalytic activity/Vol]35 U/PStsrye96-52ErmFirelands Regional Medical CenterComment on above:Performed By: #### T4, CMP, TSH, FT3, LIPID #### [facility] [address] [address] [address] Tyrell CasillasBilirubin [Mass/Vol]0.4 mg/dLNormal0.2-1.0[facility] Comment on above:Performed By: #### T4, CMP, TSH, FT3, LIPID #### [facility] [address] [place] [address] Dr. Tyrell CasillasCalcium [Mass/Vol]9.5 mg/dLNormal8.5-10.1The [facility] Comment on above:Performed By: #### T4, CMP, TSH, FT3, LIPID #### [facility] [address] [place] [address] Dr. Tyrell CasillasChloride [Moles/Vol]106 mmol/RIuyplv70-947ZkyFirelands Regional Medical Center Comment on above:Performed By: #### T4, CMP, TSH, FT3, LIPID #### [facility] [address] [place] [address] Dr. Tyrell CasillasCO2 [Moles/Vol]27.4 mmol/CTieenj57.0-32.0The [facility] Comment on above:Performed By: #### T4, CMP, TSH, FT3, LIPID #### [facility] [address] [place] [address] Dr. Tyrell CasillasCreatinine [Mass/Vol]0.96 mg/dLNormal0.70-1.30The [facility] SystemComment on above:Performed By: #### T4, CMP, TSH, FT3, LIPID #### [facility] [address] [place] [address] Dr. Santillan ChangEGFR-AF BURKINAN>60Normal>=60The [facility] Hospitalment on above:Performed By: #### T4, CMP, TSH, FT3, LIPID #### [facility] [address] [place] [address] Dr. Tyrell Jimenez-NON AF BURKINAN>60Normal>=60The [facility] Hospitalment on above:Performed By: #### T4, CMP, TSH, FT3, LIPID #### [facility] [address] [place] [address] Dr. Tyrell CasillasGlobulin (S) [Mass/Vol]4.0 g/dLNormalThe [facility] SystemComment on above:Performed By: #### T4, CMP, TSH, FT3, LIPID #### [facility] [address] [place] [address] Dr. Tyrell CasillasGlucose [Mass/Vol]101 mg/aOVjnacr70-418UuqFirelands Regional Medical Center Comment on above:Performed By: #### T4, CMP, TSH, FT3, LIPID #### [facility] [address] [place] [address] Dr. Tyrell CasillasPotassium [Moles/Vol]4.1 mmol/LNormal3.5-5.1[facility] Comment on above:Performed By: #### T4, CMP, TSH, FT3, LIPID #### [facility] [address] [place] [address] Dr. Tyrell CasillasProtein [Mass/Vol]8.5 g/dLCritically high6.4-8.2[facility] on above:Performed By: #### T4, CMP, TSH, FT3, LIPID #### [facility] [address] [place] [address] Dr. Tyrell CasillasSodium [Moles/Vol]142 mmol/UFftwwr223-164ElxFirelands Regional Medical Center Comment on above:Performed By: #### T4, CMP, TSH, FT3, LIPID #### [facility] [address] [place] [address] Dr. Tyrell CasillasUrea nitrogen [Mass/Vol]18.0 mg/dLNormal7.0-18.0The [facility] on above:Performed By: #### T4, CMP, TSH, FT3, LIPID #### [facility] [address] [place] [address] Dr. Tyrell CasillasUrea nitrogen/Creatinine [Mass ratio]18.8 mg/mgNoGreene Memorial HospitalComsinai-grace hospital on above:Performed By: #### T4, CMP, TSH, FT3, LIPID #### [facility] [address] [place] [address] Dr. Tyrell Guo4on 29-01-7902R7 [Mass/Vol]5.60 ug/dLNormal4.50-12.10The [facility] SystemComsinai-grace hospital on above:Performed By: #### T4, CMP, TSH, FT3, LIPID #### [facility] [address] [place] [address] Dr. Tyrell Xiao 31-83-3313ZPB9.892 uIU/mLNormal0.358-3.740The [facility] on above:Performed By: #### T4, CMP, TSH, FT3, LIPID #### [facility] [address] [place] [address] Dr. Tyrell Iglesias 93-10-0485CD [Catalytic activity/Vol]444 U/LCritically high 39-308Fire[facility] CenterComsinai-grace hospital on above:Performed By: #### CMP, CK, LIPID #### [facility] [address] [place] [address] Dr. Tyrell CasillasLIPID PROFILEon 97-22-9191DEDL-HDL RATIO NORMSTriHealthComsinai-grace hospital on above:Result Comment: 3.3 - 4.4 LOW RISK 4.4 - 7.1 AVERAGE RISK 7.1 - 11.0 MODERATE RISK >11.0 HIGH RISKPerformed By: #### CMP, CK, LIPID #### [facility] [address] [place] [address] Dr. Tyrell CasillasCholesterol [Mass/Vol]132 mg/dLNormal<=200[facility] Comment on above:Performed By: #### CMP, CK, LIPID #### [facility] [address] [address] [address] Tyrell CasillasCholesterol in HDL [Mass/Vol]39 mg/dLCritically rua39-91Mod [facility] on above:Performed By: #### CMP, CK, LIPID #### [facility] [address] [address] [address] Tyrell CasillasCholesterol in LDL [Mass/Vol]72.8 mg/dLNoGreene Memorial HospitalComment on above:Performed By: #### CMP, CK, LIPID #### [facility] [address] [address] [address] Tyrell Harperesterbg.total/Cholesterol in HDL [Mass ratio]3.4 {ratio} NormalFirelands Regional Medical CenterComment on above:Performed By: #### CMP, CK, LIPID #### [facility] [address] [place] [address] Dr. Tyrell Beaver NORMAL> or = 60 mg/dl - LOW CARDIOVASCULAR RISK <40 mg/dl - HIGH CARDIOVASCULAR RISKNoGreene Memorial HospitalComment on above:Performed By: #### CMP, CK, LIPID #### [facility] [address] [address] [address] Tyrell Garcia CALC NORMALSEE BELOWThe University of Toledo Medical CenterComment on above:Result Comment: <100 mg/dl OPTIMAL 100 - 129 mg/dl NEAR OR ABOVE OPTIMAL 130 - 159 mg/dl BORDERLINE HIGH 160 - 189 mg/dl HIGH >190 mg/dl VERY HIGH Performed By: #### CMP, CK, LIPID #### [facility] [address] [place] [address] Dr. Tyrell CasillasTriglyceride [Mass/Vol]101 mg/dLNormal<=150The [facility] Comment on above:Performed By: #### CMP, CK, LIPID #### [facility] [address] [place] [address] Dr. Tyrell CasillasVLDL CALC20.2 mg/dLNoGreene Memorial HospitalComment on above: Performed By: #### CMP, CK, LIPID #### [facility] [address] [address] [address] Tyrell CasillasPROF 14(COMP METB)on 53-37-8256Egkaahr [Mass/Vol]4.4 g/dLNormal 3.4-5.0The [facility] SystemComment on above:Performed By: #### CMP, CK, LIPID #### [facility] [address] [place] [address] Dr. Tyrell CasillasAlbumin/Globulin [Mass ratio]1.3 {ratio}NormalThe [facility] SystemComment on above:Performed By: #### CMP, CK, LIPID #### [facility] [address] [address] [address] Tyrell Haile [Catalytic activity/Vol]55 U/STvfrei07-786Gwn [facility] SystemComment on above:Performed By: #### CMP, CK, LIPID #### [facility] [address] [place] [address] Dr. Tyrell Martin [Catalytic activity/Vol]48 U/QNkkoqd94-84Xoj [facility] SystemComment on above:Performed By: #### CMP, CK, LIPID #### [facility] [address] [address] [address] Tyrell Whittaker gap [Moles/Vol]12.1 mmol/LNormalThe [facility] Comment on above:Performed By: #### CMP, CK, LIPID #### [facility] [address] [place] [address] Dr. Tyrell CasillasAST [Catalytic activity/Vol]35 U/EArowvp30-72Nwu [facility] SystemComment on above:Performed By: #### CMP, CK, LIPID #### [facility] [address] [place] [address] Dr. Tyrell CasillasBilirubin [Mass/Vol]0.4 mg/dLNormal0.2-1.0The [facility] Comment on above:Performed By: #### CMP, CK, LIPID #### [facility] [address] [place] [address] Dr. Tyrell CasillasCalcium [Mass/Vol]9.0 mg/dLNormal8.5-10.1The [facility] Comment on above:Performed By: #### CMP, CK, LIPID #### [facility] [address] [address] [address] Tyrell CasillasChloride [Moles/Vol]106 mmol/GVtjimu80-993MydFirelands Regional Medical Center Comment on above:Performed By: #### CMP, CK, LIPID #### [facility] [address] [address] [address] Tyrell CasillasCO2 [Moles/Vol]25.0 mmol/TNfdufp88.0-32.0[facility] Comment on above:Performed By: #### CMP, CK, LIPID #### [facility] [address] [place] [address] Dr. Tyrell CasillasCreatinine [Mass/Vol]0.85 mg/dLNormal0.70-1.30Firelands Regional Medical CenterComment on above:Performed By: #### CMP, CK, LIPID #### [facility] [address] [place] [address] Dr. Tyrell CernaGFR-AF BURKINAN>60Normal>=60The [facility] SystemComment on above:Performed By: #### CMP, CK, LIPID #### [facility] [address] [place] [address] Dr. Tyrell Jimenez-NON AF BURKINAN>60Normal>=60The [facility] SystemComment on above:Performed By: #### CMP, CK, LIPID #### [facility] [address] [place] [address] Dr. Tyrell CasillasGlobulin (S) [Mass/Vol]3.4 g/dLNormalThe [facility] SystemComment on above:Performed By: #### CMP, CK, LIPID #### [facility] [address] [place] [address] Dr. Tyrell CasillasGlucose [Mass/Vol]106 mg/nXPnqbst91-178NqjFirelands Regional Medical Center Comment on above:Performed By: #### CMP, CK, LIPID #### [facility] [address] [place] [address] Dr. Tyrell CasillasPotassium [Moles/Vol]4.1 mmol/LNormal3.5-5.1The [facility] Comment on above:Performed By: #### CMP, CK, LIPID #### [facility] [address] [address] [address] Tyrell CasillasProtein [Mass/Vol]7.8 g/dLNormal6.4-8.2[facility] Comment on above:Performed By: #### CMP, CK, LIPID #### [facility] [address] [address] [address] Tyrell CasillasSodium [Moles/Vol]139 mmol/GNaajgp640-974TvyFirelands Regional Medical Center Comment on above:Performed By: #### CMP, CK, LIPID #### [facility] [address] [place] [address] Dr. Tyrell CasillasUrea nitrogen [Mass/Vol]15.0 mg/dLNormal7.0-18.0Firelands Regional Medical CenterComment on above:Performed By: #### CMP, CK, LIPID #### [facility] [address] [place] [address] Dr. Tyrell Watts nitrogen/Creatinine [Mass ratio]17.6 mg/mgNormalThKettering Health TroyComment on above:Performed By: #### CMP, CK, LIPID #### [facility] [address] [place] [address] Dr. Tyrell CasillasCoquinton Summaryon 14-62-2781Uaxiem SummaryCODING DATE: 05/31/2020 [facility] STATUS: Home PAYOR: Medicare MC APC [...] By: Eugenie George Date Saved: 05/31/2020 01:32 [facility] HospitalProvider Orderson 34-75-9347Iwixzosn [id number]#1.00[facility] HospitalCoding Summaryon 84-42-7031Yyjdje SummaryCODING DATE: 05/19/2020 [facility] STATUS: Home PAYOR: Medicare MC APC DESCRIPTION 5115 Level 5 Musculoskeletal Procedures ADMIT DX: REASON FOR VISIT DX: M16.11 Unilateral primary osteoarthritis, right hip FINAL DX: PRINCIPAL: M16.11 Unilateral primary osteoarthritis, right hip SECONDARY: I10 Essential (primary) hypertension I25.10 Atherosclerotic heart disease of [place] coronary artery without angina pectoris Z86.73 Personal history of transient ischemic attack (TIA), and cerebral infarction without residual deficits PYMT PROC APC STAT DESCRIPTION DOCTOR NAME DATE [id number] 482 J1 Arthroplasty, acetabular Quirino, Bairon And and [...] Nicci Kee Revised Date Saved: 05/18/2020 12:22 [facility] HospitalConsent Formson 04-45-0896Jofdnle [id number]#1.00[facility] ShawMedication Managementon 81-08-7912Tbwignuxaz Management [id number]#1.00[facility] Outside Recordson 76-03-1307Vajxpwg Records [id number]#1.00[facility] Provider Orderson 96-28-4628Nceoyiod Orders [id number]#1.00[facility] Telemetry Stripson 43-68-6405Qaocvdjyc Strips [id number]#1.00OTGTIFFNoMercy Health Willard Hospital.Auto Diff 1on 36-99-1602Vtlf [place] %7 %Normal1-12[facility] HospitalComment on above: Performed By: #### [id number], [id number], [id number] #### [facility] (DEFAULT) [address] [place] [address] 46796Knuq Abs#0.0 t58Gpskwd8.0-0.2[facility] HospitalComment on above:Performed By: #### 7247460, 86071541, [id number] #### [facility] (DEFAULT) [address] [place] [address] 66328Isoclerqn/100 WBC (Bld)0.2 %Normal0.2-2.0[facility] Hospital Comment on above:Performed By: #### 7052937, 42866509, [id number] #### [facility] (DEFAULT) [address] [place] [address] 64350Hlo Abs#0.1 c70Xseflm4.0-0.4[facility] HospitalComment on above:Performed By: #### 3998775, [id number], [id number] #### [facility] (DEFAULT) [address] [place] [address] 49345Lyvvbjemeow/100 WBC (Bld)1.5 %Normal0.9-4.0[facility] HospitalComment on above:Performed By: #### 2182574, 78599618, [id number] #### [facility] (DEFAULT) [address] [place] [address] 51889Wjfdylraqak (Bld) [#/Vol]1.3 p48Didhmp1.3-2.9[facility] HospitalComment on above:Performed By: #### 5155001, 61883042, [id number] #### [facility] (DEFAULT) [address] [place] [address] 87843Sikxbagnxta/100 WBC (Bld)15 %Ouurex29-91Zfimizis Hospital Comment on above:Performed By: #### 0759963, 07874170, [id number] #### [facility] (DEFAULT) [address] [place] [address] 95050Ihlu Abs#0.6 j41Zuynei5.0-0.8[facility] HospitalComment on above:Performed By: #### 0405570, 58616903, [id number] #### [facility] (DEFAULT) [address] [place] [address] 32414Ptkq Abs#6.4 u22Vfkizg4.5-9.2Magrthe jewish hospital HospitalComment on above:Performed By: #### 6883310, 83619889, [id number] #### [facility] (DEFAULT) [address] [place] [address] 91899Fhguylcjrzu/100 WBC (Bld)76 %Mcdtyj25-05Qebawjqu Hospital Comment on above:Performed By: #### 6393983, 85231670, [id number] #### [facility] (DEFAULT) [address] [place] [address] 25499NHJ w/ Auto Diffon 39-82-8371Xfxcjtuymjj distribution width (RBC) [Ratio]11.9 %Lrsgoj04.5-15.0[facility] HospitalComment on above: Performed By: #### 6308032, 78770478, [id number] #### [facility] (DEFAULT) [address] [place] [address] 78274Pqqhnjmtew (Bld) [Volume fraction]26.9 %Low34.8-51.9 [facility] HospitalComment on above:Performed By: #### 3734718, 45956094, [id number] #### [facility] (DEFAULT) [address] [place] [address] 55109Fipgnlyhvm (Bld) [Mass/Vol]9.2 g/dLLow11.8-17.7[facility] HospitalComment on above:Performed By: #### 6536012, 66672161, [id number] #### [facility] (DEFAULT) [address] [place] [address] 13592Clq Diff?AutoNormalC[facility] Clinic Medina Hospital HospitalComment on above: Performed By: #### 4691568, 52296009, [id number] #### [facility] (DEFAULT) [address] [place] [address] 71435YDH (RBC) [Entitic mass]32 cmMtsboy43-95Meunblst Hospital Comment on above:Performed By: #### 1887278, 59970338, [id number] #### [facility] (DEFAULT) [address] [place] [address] 23719BOZA (RBC) [Mass/Vol]34 g/oFCouwor55-49Vuimwtdr Hospital Comment on above:Performed By: #### 1630432, 43313612, [id number] #### [facility] (DEFAULT) [address] [place] [address] 29767LOF (RBC) [Entitic vol]94 rWGqrrvu37-627Giagnjnw Hospital Comment on above:Performed By: #### 5704087, 29371820, [id number] #### [facility] (DEFAULT) [address] [place] [address] 64642Jycceolo mean volume (Bld) [Entitic vol]9.4 fLNormal 6.3-10.2[facility] HospitalComment on above:Performed By: #### 4341766, 99647447, [id number] #### [facility] (DEFAULT) [address] [place] [address] 76949Ulzkckqso (Bld) [#/Vol]203 a10Bawcgx644-962Zfrztmyi HospitalComment on above:Performed By: #### 0625362, 87746140, [id number] #### [facility] (DEFAULT) [address] [place] [address] 66662ETO (Bld) [#/Vol]2.87 h23Wxu9.70-5.30[facility] Comment on above:Performed By: #### 6133215, 26130871, [id number] #### [facility] (DEFAULT) [address] [place] [address] 94594JXW (Bld) [#/Vol]8.5 y36Xzavin3.5-10.5[facility] Comment on above:Performed By: #### 5105203, 47210328, [id number] #### [facility] (DEFAULT) [address], [place] [address]Yyqddwwit Noteon 79-68-2076Sbciogzwh NoteEducation Materials POST OPERATIVE TOTAL HIP DISCHARGE [...] can be done to rule of a DVT.[facility] HospitalExtra [facility] 16-00-8506Nixv [facility] HospitalComment on above:Performed By: #### 1838282, 31267392, [id number] #### [facility] (DEFAULT) [address] [place] [address] 31229Pxmbsrffl Patient Summaryon 16-35-9749Qqqkptkuq Patient Summary[address] [address] Patient Discharge Instructions Name: GRETCHEN DELATORRE : 1950 Patient Address: [address] [place] [address] [address] [address] Primary Care Provider: Name: DAKSHA DOLL After you are discharged if you find you have any questions, please, call [phone] ext [phone] to speak to a nurse. Discharge Diagnosis: Primary osteoarthritis of right hip Prescription Information: If you have been given a prescription for narcotics, seek immediate medical attention if you have any difficulty breathing or any sudden status changes such as confusion andsleepiness. If you or anyone you know is experiencing suicidal thoughts, mental health, alcohol and/or drug addiction problems; contact the [facility] 26/05 Crisis Hotline -Text 4HOPE to 933383. If you received any narcotics, sedation, or [...] business decisions or sign any legal documents [facility] would like to thank you for allowing us to assist you with your healthcare needs.The following includes patient education materials and information regarding your injury/illness. GRETCHEN DELATORRE has been given the following list of follow-up instructions, prescriptions, and patient education materials: Follow-up Instructions With: Address: When: [address] [facility] [address] [place] [address] Business (2) 05/25/2020 2:00 PM With: Address: When: DAKSHA AFIA [address] [place] [address] [place] [address] Business (1) Medications During the [...] Centers for Disease Control and Prevention July 2014[facility] Nutrition Noteon 67-58-6409Nlowuzucy NotePt eating well avg 70-100% of meals and taking supplements as ordered. No new wts. Labs reviewed, post op anemia noted. No new rec'd at this time. Will continue to follow.[facility] Pharmacy Noteon 03-06-3563Rzkulajt NoteI have personally reviewed the patient's current [...] Echavarria [Verified on: 05/17/2020 08:32 EDT] Eliezer EchavarriaAdams [facility] Note - Nurseon 05-17-2020 Progress [...] [Verified on: 05/17/2020 17:30 EDT] [facility]-Physicianon 05-17-2020 Progress Note-PhysicianDATE [...] Win's office. Bert Aguila DO JOB #: [id number] bk [Electronically Signed on: 05/18/2020 11:35 EDT] BERT AGUILA DO [Verified on: 05/18/2020 11:35 EDT] BERT AGUILA DO [Transcribed on: 05/17/2020 14:48 EDT] [facility].Auto Diff 1on 29-86-5039Gcmw [place] %9 %Normal1-12 [facility] HospitalComment on above:Performed By: #### 1205625, 84266605, [id number] #### [facility] (DEFAULT) [address] [place] [address] 59638Cvqe Abs#0.0 j82Jgqzso2.0-0.2[facility] HospitalComment on above:Performed By: #### 2413163, 37405946, [id number] #### [facility] (DEFAULT) [address] [place] [address] 16461Tnodkxusj/100 WBC (Bld)0.1 %Low0.2-2.0Magrthe jewish hospital Hospital Comment on above:Performed By: #### 4040085, 27715984, [id number] #### [facility] (DEFAULT) [address] [place] [address] 61446Bgo Abs#0.0 m20Twkgvy9.0-0.4Magrthe jewish hospital HospitalComment on above:Performed By: #### 4710512, 92462335, [id number] #### [facility] (DEFAULT) [address] [place] [address] 31168Wjsosgjsikf/100 WBC (Bld)0.2 %Low0.9-4.0[facility] Hospital Comment on above:Performed By: #### 0057509, 74028766, [id number] #### [facility] (DEFAULT) [address] [place] [address] 23487Exqtgjpubbb (Bld) [#/Vol]1.8 z17Zbdmwl8.3-2.9Magruder HospitalComment on above:Performed By: #### 5073537, 38414875, [id number] #### [facility] (DEFAULT) [address] [place] [address] 64232Cvpixisorex/100 WBC (Bld)14 %Yyaxra88-34[facility] Comment on above:Performed By: #### 8830980, 48320317, [id number] #### [facility] (DEFAULT) [address] [place] [address] 91701Utty Abs#1.1 z47Bwae8.0-0.8Magrthe jewish hospital HospitalComment on above:Performed By: #### 1245263, 83540131, [id number] #### [facility] (DEFAULT) [address] [place] [address] 33910Ntqh Abs#9.9 z70Ildy0.5-9.2[facility] HospitalComment on above:Performed By: #### 0151041, 94780837, [id number] #### [facility] (DEFAULT) [address] [place] [address] 40380Sqdzsqokjkc/100 WBC (Bld)77 %Fyjuwp20-59Fpfhwjep Hospital Comment on above:Performed By: #### 2267084, 33874175, [id number] #### [facility] (DEFAULT) [address] [place] [address] 58613EYO w/ Auto Diffon 77-68-9582Sekraoufojm distribution width (RBC) [Ratio]12.1 %Cbntso83.5-15.0[facility] HospitalComment on above: Performed By: #### 1553084, 89845481, [id number] #### [facility] (DEFAULT) [address] [place] [address] 88237Huatssoece (Bld) [Volume fraction]30.8 %Low34.8-51.9 [facility] HospitalComment on above:Performed By: #### 2138692, 35006081, [id number] #### [facility] (DEFAULT) [address] [place] [address] 67164Uwyrodcake (Bld) [Mass/Vol]10.5 g/dLLow11.8-17.7[facility] HospitalComment on above:Performed By: #### 3271210, 20315430, [id number] #### [facility] (DEFAULT) [address] [place] [address] 22780Vdi Diff?AutoNormalC[facility] Clinic [facility] Hospital HospitalComment on above: Performed By: #### 3949435, 87151003, [id number] #### [facility] (DEFAULT) [address] [place] [address] 31983OFU (RBC) [Entitic mass]32 qwQgongj52-08Comftigy Hospital Comment on above:Performed By: #### 5246899, 91966978, [id number] #### [facility] (DEFAULT) [address] [place] [address] 78173PXLP (RBC) [Mass/Vol]34 g/qHKubicj04-64Bjifgiwa Hospital Comment on above:Performed By: #### 6276380, 35623072, [id number] #### [facility] (DEFAULT) [address] [place] [address] 59644RQU (RBC) [Entitic vol]93 lDQgfcdl26-164Kxxaygmv Hospital Comment on above:Performed By: #### 4331755, 62353253, [id number] #### [facility] (DEFAULT) [address] [place] [address] 60648Ydakllkn mean volume (Bld) [Entitic vol]9.2 fLNormal 6.3-10.2MEast Liverpool City HospitalComment on above:Performed By: #### 0775661, 10742958, [id number] #### [facility] (DEFAULT) [address] [place] [address] 14997Iekhosjzd (Bld) [#/Vol]238 v00Uxsmgy876-559Fmnrnkvd HospitalComment on above:Performed By: #### 3693853, 01268568, [id number] #### [facility] (DEFAULT) [address] [place] [address] 67126LDJ (Bld) [#/Vol]3.31 r07Jup7.70-5.30[facility] Comment on above:Performed By: #### 2316522, 56414654, [id number] #### [facility] (DEFAULT) [address] [place] [address] 59111SDT (Bld) [#/Vol]12.9 y57Codf3.5-10.5[facility] Comment on above:Performed By: #### 2911544, 73073407, [id number] #### [facility] (DEFAULT) [address] [place] [address] 52599Vikecfus Note-Physicianon 45-62-1168Bijznpwm Note-PhysicianDATE OF POSTOPERATIVE ORTHOPEDIC PROGRESS NOTE: 05/16/2020 [...] PROGNOSIS: Good. Bert Aguila DO JOB #: [id number] bk [Electronically Signed on: 05/17/2020 11:24 EDT] BERT AGUILA DO [Verified on: 05/17/2020 11:24 EDT] BERT AGUILA DO [Transcribed on: 05/16/2020 13:06 EDT] [facility].Auto Diff 1on 99-69-3836Iqhw [place] %1 %Normal1-12 [facility] HospitalComment on above:Performed By: #### 9679778, 09079206, [id number] #### [facility] (DEFAULT) [address] [place] [address] 92797Zpaq Abs#0.0 a95Tzyvms6.0-0.2Magrthe jewish hospital HospitalComment on above:Performed By: #### 9641951, 31139307, [id number] #### [facility] (DEFAULT) [address] [place] [address] 77356Aektkdusk/100 WBC (Bld)0.1 %Low0.2-2.0[facility] Comment on above:Performed By: #### 1493909, 14439132, [id number] #### [facility] (DEFAULT) [address] [place] [address] 04744Aou Abs#0.0 x30Bqeure2.0-0.4[facility] HospitalComment on above:Performed By: #### 4612757, 27683241, [id number] #### [facility] (DEFAULT) [address] [place] [address] 52709Rlnltrkvzpj/100 WBC (Bld)0.1 %Low0.9-4.0[facility] Hospital Comment on above:Performed By: #### 4981882, 39278916, [id number] #### [facility] (DEFAULT) [address] [place] [address] 76753Meoisfawnxp (Bld) [#/Vol]0.4 c30Vle4.3-2.9[facility] HospitalComment on above:Performed By: #### 9638800, 95654592, 6337391818 #### [facility] (DEFAULT) [address] [place] [address] 54247Ntaztmaxjpr/100 WBC (Bld)4 %Scs13-95LyvgwntoMartin Memorial Hospital Comment on above:Performed By: #### 4411555, 89868502, 1775757414 #### [facility] (DEFAULT) [address] [place] [address] 34552Eunl Abs#0.2 c10Scwwuj0.0-0.8[facility] HospitalComment on above:Performed By: #### 1531791, 43242868, [id number] #### [facility] [address] [place] [address] 38947Upau Abs#10.0 g21Aczx1.5-9.2Magrthe jewish hospital HospitalComment on above:Performed By: #### 4686311, 87510666, [id number] #### [facility] (DEFAULT) [address] [place] [address] 08283Glpbgkbixbs/100 WBC (Bld)94 %Elqf18-22Zdkwfqyk Hospital Comment on above:Performed By: #### 1762890, 94917459, 4358556886 #### [facility] (DEFAULT) [address] [place] [address] 46786Cqkezmtzca Noteon 58-93-1993Jdzforbfsq NotePatient: GRETCHEN DELATORRE Age: 69 years Sex: [...] AAA (abdominal aortic aneurysm) / SNOMED CT 269109329 / Confirmed CAD (coronary artery disease) / SNOMED CT 05203923 / Confirmed Myocardial infarct / SNOMED CT 16408041 / Confirmed Resolved: CVA, old, cognitive deficits / SNOMED CT 8300585107 Histories Family History: Entire family history is negative. Procedure history: AAA - Abdominal aortic aneurysm (903933688) in 2012 at 62 Years. AAA - Abdominal aortic aneurysm (746328655) in 2005 at 55 Years. quaddruple cardiac byapss in 2005 at 55 Years. back surgery in 2004 at 54 Years. knee scope in 2004 at 54 Years. Comments: 04/27/2020 14:05 Abimbola Pickering RN right Hip arthroplasty (166178461) in 2003 at 53 Years. AAA - Abdominal aortic aneurysm (898868351) in 2002 at 52 Years. Social History [...] ECG interpretation: SR, occ PVCs, NSTWA. Plan [place] [employer]#(ASA) physical status classification: Class III. Anesthetic Preoperative Plan Anesthesia: General. . Anesthetic plan, risks, benefits, and alternatives discussed with the patient and/or family. Patient verbalized understanding. Informed consent was given. Consent was signed by the patient. [Electronically Signed on: 05/15/2020 08:26 EDT] Tom Casiano MD [Verified on: 05/15/2020 08:26 EDT] Tom Casiano MDHighland District Hospital w/ Auto Diffon 11-15-2924Gzpvkjlpong distribution width (RBC) [Ratio]12.1 %Wescyy17.5-15.0[facility] HospitalComment on above:Performed By: #### 9972721, 80569820, [id number] #### [facility] (DEFAULT) [address], [place] [address]Ipndrpxmoy (Bld) [Volume fraction]33.2 %Low34.8-51.9 Ed[facility]ardo HospitalComment on above:Performed By: #### 2872695, 05861457, [id number] #### [facility] (DEFAULT) [address] [place] [address] 17915Bpkgkkayjt (Bld) [Mass/Vol]11.5 g/dLLow11.8-17.7[facility] HospitalComment on above:Performed By: #### 9584850, 76389136, [id number] #### [facility] (DEFAULT) [address] [place] [address] 05640Uvg Diff?AutoNormalC[facility] Clinic [facility] Hospital HospitalComment on above: Performed By: #### [id number], [id number], [id number] #### [facility] (DEFAULT) [address] [place] [address] 17800SSN (RBC) [Entitic mass]32 uwMhqype55-60Jtemmkrt Hospital Comment on above:Performed By: #### [id number], [id number], [id number] #### [facility] (DEFAULT) [address] [place] [address] 33404LGNT (RBC) [Mass/Vol]35 g/kEMydufx20-82Papnbkwp Hospital Comment on above:Performed By: #### [id number], [id number], [id number] #### [facility] (DEFAULT) [address] [place] [address] 86726WJU (RBC) [Entitic vol]92 fMLcqpjw80-148Fkjbtxwf Hospital Comment on above:Performed By: #### [id number], [id number], [id number] #### [facility] (DEFAULT) [address] [place] [address] 21023Xpnarrhl mean volume (Bld) [Entitic vol]9.5 fLNormal 6.3-10.2MEast [place] City HospitalComment on above:Performed By: #### [id number], [id number], [id number] #### [facility] (DEFAULT) [address] [place] [address] 94735Isijiquuf (Bld) [#/Vol]205 v14Ecvsbr808-908Izeoopdn HospitalComment on above:Performed By: #### [id number], [id number], [id number] #### [facility] (DEFAULT) [address] [place] [address] 84362EOP (Bld) [#/Vol]3.62 u82Cby4.70-5.30[facility] Comment on above:Performed By: #### [id number], [id number], [id number] #### [facility] (DEFAULT) [address] [place] [address] 91048WWE (Bld) [#/Vol]10.6 q77Sndm9.5-10.5[facility] Comment on above:Performed By: #### [id number], [id number], [id number] #### [facility] (DEFAULT) [address] [place] [address] 26166Dgbbgjw and Physicalon 55-35-1400Gfskwzb and Physical [id number]#1.00OTGTIFFCleveland Clinic South Pointe HospitalMAGR Intraoperative Recordon 07-95-3736XUVW Intraoperative RecordMAGR Intra-Op Record Summary Primary Physician: Bairon Win DO Finalized Date/Time: 05/15/20 17:18:47 Pt. Name: GRETCHEN DELATORRE/Sex: 1950 MALE Med Rec #: [id number] Physician: Bairon Win DO Financial #: [id number] Pt. Type: O Room/Bed: [facility]/ Admit/Disch: 05/15/20 06:07:00 - Institution: Case [...] Role Performed Surgeon - Primary Anesthesiologist of Headmaster/[place]istress Record Time In 05/15/20 09:01:00 05/15/20 09:01:00 05/15/20 09:01:00 Time Out 05/15/20 11:20:00 05/15/20 11:20:00 05/15/20 11:20:00 Procedure Arthroplasty Total Arthroplasty Total Arthroplasty Total Hip(Right) Hip(Right) Hip(Right) Last Modified By: Ethel Gibson RN, Stephanie RN Sauer, Stephanie RN 05/15/20 14:15:50 05/15/20 14:15:50 05/15/20 14:15:50 Entry 4 Entry 5 Entry 6 Case Attendee Megan ROUTE SALES SPECIALIST, Mauricio Foreman Brittany E CST Regina ROUTE SALES SPECIALIST Role Performed Scrub Personnel Ostomy Nurse Ostomy Nurse Time In 05/15/20 09:01:00 05/15/20 09:01:00 05/15/20 [...] Initial Count Time 05/15/20 08:15:00 Performed By Aidna Guzman CST Counts Verification Final Counts Items [...] By: Pedro Edgar DO Size 54MM 58MM Interior Specialist DePuy DEPUY DEPUY Catalog # Lot Number [id number] Expiration Date 03/02/30 04/02/30 Serial Number REF [id number] REF [id number] REF [id number] Device Identifier Human Readable PAUL Machine Readable PAUL MR Class Implant Usage Data Site Hip R Hip R Hip R Quantity 1 1 1 Reason for Explant Reason Not Retained Explant Disposition Certified Dialysis Technician Sterility External Indicator Result Internal Indicator Results [...] 56OD 6.5MM X 25MM KA SIZE 11 Interior Specialist DEPUY DEPUY DEPUY Catalog # Lot Number [id number] Expiration Date 12/31/24 10/02/29 07/03/24 Serial Number REF [id number] REF [id number] REF [id number] Device Identifier Human Readable PAUL Machine Readable PAUL MR Class Implant Usage Data Site Hip R Hip R Hip R Quantity 1 2 1 Reason for Explant Reason Not Retained Explant Disposition Certified Dialysis Technician Sterility External Indicator Result Internal Indicator Results Outcome Met (O.30) Yes Yes Yes Last Modified By: Ethel Gibson RN, Stephanie RN Sauer, Stephanie RN 05/15/20 15:23:55 05/15/20 15:23:55 05/15/20 15:23:55 Entry 7 Procedure Arthroplasty Total Hip(Right) Implant Action Implant Description DEPUY M SPEC METAL FEMORAL HEAD Implant Information Implant/Explant 05/15/20 10:25:00 Date/Time Implanted/Explanted Bairon Win By: Pedro WHITE Size 036MM /14 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 Name: GRETCHEN DELATORRE/Sex: 1950 MALE Med Rec #: [id number] Physician: Bairon Win DO Financial #: [id number] Pt. Type: D Room/Bed: [facility] Admit/Disch: 05/15/20 06:07:00 - Institution: PACU Case Times MAGR Entry 1 In PACU I 05/15/20 11:15:00 Discharge from PACU 05/15/20 12:05:00 I Last Modified By: Francesca Pastrana RN 05/15/20 12:19:29 Finalized By: Francesca Pastrana RN Document Signatures Signed By: Francesca Pastrana RN 05/15/20 12:19[facility] 40-93-3271NXPT Preoperative RecordMAGR Pre-Op Record Summary Primary Physician: Bairon Win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
--- OUTSIDE RECORDS SUMMARY | 2025-09-15 14:51 | XMS_ITS | Patient Health Record ---
Author Organization The [facility] in [place] Address [address] [place] [address] Care Team Providers Care Company Doctor Name Role Phone Afia Yamil Primary Care Provider [phone] Yaa Kirstie Unavailable [phone] Allergies No Known Allergies Results Component Value Reference Range Notes BNP Reviewed date:09/04/2025 01:44:02 PM Interpretation: Performing Lab: Notes/Report: [facility] [place] , NT Pro B Type Natriuretic Pept 1821.0 <=900.0 pg /mL RESULTS CALLED TO DR. OREILLY Performing Lab: see note ML - [facility] [place] LBCBC AUTO DIFF Reviewed date:09/04/2025 01:44:02 PM Interpretation: Performing Lab: Notes/Report: [facility] [place] ,White Blood Count4.84.0-11.0 10 3/uLRed Blood Count2.204.70-6.10 10 6/uL Hemoglobin8.114.0-18.0 g/iRNjfeaedect96.342.0-54.0 %Mean Corpuscular Bkzgsr529.5 80.0-94.0 fLMean Corpuscular Xeamhufkrq07.825.9-34.0 pgMean Corpuscular HGB Conc 33.329.9-35.2 g/dLRed Cell Distribution Width15.511.0-15.0 %Platelet Foyws700 150-450 10 3/uLMean Platelet Volume9.49.5-13.5 fLNeutrophils Percent [...] 01:44:02 PM Interpretation: Performing Lab: Notes/Report: [facility] [place] ,Zijxst286892-505 mmol/LPotassium3.63.5-5.1 mmol/LGeujmfrq30268-550 mmol/LCarbon Eiejkte81.721.0-32.0 mmol/LAnion Gap8.4Oswvmgp29578-700 mg/dLBlood Urea Nitrogen 20.07.0-18.0 mg/dLCreatinine1.060.70-1.30 mg/dLEstimated GFR ( Stephanie>60 >=60 mL/min/1.73m 2Estimated GFR (Non- Kristel>60>=60 mL/min/1.73m 2BUN Creatinine Ratio18.1Avjxamh3.38.5-10.1 mg/dLBilirubin Total0.60.2-1.0 mg/dL Aspartate Amino Wxgyvobrfot06944-21 U/LAlanine Fyqploekcbwkjcjk89215-73 U/L Alkaline Ggxeyhtcuqz5980-302 U/LTotal Ehcbogm10.16.4-8.2 g/dLAlbumin Level2.9 3.4-5.0 g/dLGlobulin8.2Albumin Globulin Ratio0.4Performing Lab:see noteML - [facility] LBBNP Reviewed date:09/06/2025 07:22:28 PM Interpretation: Performing Lab: Notes/Report: [facility] [place] ,NT Pro B Type Natriuretic Qiuq5124.0<=900.0 pg/mLRESULTS CALLED TOPerforming Lab:see note - [facility] LBBNP Reviewed date:09/07/2025 12:58:45 PM Interpretation: Performing Lab: Notes/Report: [facility] [place] ,NT Pro B Type Natriuretic Hsbf6175.0<=900.0 pg/mLRESULTS CALLED TO NORA WALSH LPN at 1135Performing Lab:see note - [facility] LBBNP Reviewed date:09/08/2025 04:12:39 PM Interpretation: Performing Lab: Notes/Report: [facility] [place] ,NT Pro B Type Natriuretic Axct7342.0<=900.0 pg/mLRESULTS CALLED TO NORA WALSH LPN at 1423Performing Lab[facility] L[facility]FF Reviewed date:09/08/2025 02:09:03 PM Interpretation: Performing Lab: Notes/Report: [facility] [place] ,White Blood Count6.54.0-11.0 10 3/uLRed Blood Count2.424.70-6.10 10 6/uL Hemoglobin8.714.0-18.0 g/zQZkawtpdvzd41.942.0-54.0 %Mean Corpuscular Mkfhem738.2 80.0-94.0 fLMean Corpuscular Rhubdvmide70.025.9-34.0 pgMean Corpuscular HGB Conc 32.329.9-35.2 g/dLRed Cell Distribution Width14.911.0-15.0 %Platelet Opvzd241 150-450 10 3/uLMean Platelet Volume9.49.5-13.5 fLNeutrophils Percent Auto69.9 43.0-75.0 %Lymphocytes Percent Auto14.920.5-60.0 %Monocytes Percent Auto12.41.7- 12.0 %Eosinophils Percent Auto2.00.9-7.0 %Basophils Percent Auto0.60.2-2.0 % Immature Granulocytes Pct Auto0.20.0-0.5 %Neutrophils Absolute Auto4.61.4-6.5 10 3/uLLymphocytes Absolute Auto1.01.2-3.8 10 3/uLMonocytes Absolute Auto0.80.3-0.8 10 3/uLEosinophils Absolute Auto0.10.0-0.7 10 3/uLBasophils Absolute Auto0.00.0- 0.1 10 3/uLImmature Granulocytes Abs Auto0.010.00-0.03 10 3/uLPerforming Lab:see noteML - [facility] LBTroponin I High Sensitivity Reviewed date:09/08/2025 04:12:39 PM Interpretation: Performing Lab: Notes/Report: [facility] [place] ,Troponin I High Aovadfheiej976.94.0-76.1 pg/mL RESULTS CALLED TO NORA WALSH LPN at 1423 CUT-OFF POINTS HAVE BEEN ESTABLISHED BASED ON THE FOURTH UNIVERSAL DEFINITION OF MYOCARDIAL INFARCTION. THE UPPER REFERENCE LIMIT (URL) OF TROPONIN, DEFINED THE 99TH PERCENTILE OF cTnI DISTRIBUTION IN A REFERENCE POPULATION, HAS BEEN CONFIRMED THE DECISION THRESHOLD FOR NC DIAGNOSIS. 99TH PERCENTILE = 76.2 PG/ML NOTE: HIGH-SENSITIVITY TROPONIN ASSAY IS NOT INTENDED TO BE USED IN ISOLATION BUT SHOULD BE INTERPRETED IN CONJUNCTION WITH OTHER DIAGNOSTIC AND CLINICAL INFORMATION. Performing Lab:see noteML - [facility] LBCPK Reviewed date:10/17/2024 05:24:57 PM Interpretation: Performing Lab: Notes/Report: [facility] [place] ,Creatine Txhsju87445-649 U/LRESULTS CALLED TO KYRA WEAVER @BY Kamala Dunham at 1113Performing Lab:see note - [facility] LBLIPID PROFILE Reviewed date:10/17/2024 05:24:57 PM Interpretation: Performing Lab: Notes/Report: [facility] [place] ,Vkkdwbkhnrxbp10<=150 mg/kZYmlqvlfvnug517<=200 mg/dLHDL Wvtkejyuqdu3623-26 mg/dL > or =60 mg/dl - LOW CARDIOVASCULAR RISK <40 mg/dl - HIGH CARDIOVASCULAR RISK LDL Cholesterol Pgxigzzten84.0 <100 mg/dl OPTIMAL 100-129 mg/dl NEAR OR ABOVE OPTIMAL 130-159 mg/dl BORDERLINE HIGH 160-189 mg/dl HIGH >190 mg/dl VERY HIGH VLDL CNJVKGJGUDZ74.4Chol HDL Ratio3.8 3.3 - 4.4 LOW RISK 4.4 - 7.1 AVERAGE RISK 7.1 - 11.0 MODERATE RISK >11.0 HIGH RISK Performing Lab:see noteML - [facility] LBLIVER PROFILE Reviewed date:10/17/2024 05:24:57 PM Interpretation: Performing Lab: Notes/Report: [facility] [place] ,Bilirubin Total0.40.2-1.0 mg/dLBilirubin Direct0.10.0-0.2 mg/dLAspartate Amino Gbmscmrmjao5653-07 U/LAlanine Mbmxcpxuugnhccdw0995-48 U/LAlkaline Whyuzsekban22 46-116 U/LTotal Protein9.76.4-8.2 g/dLAlbumin Level3.53.4-5.0 g/dLGlobulin6.2 Albumin Globulin Ratio0.6Performing Lab:see noteML - [facility] LBCT forearm LT wo con Reviewed date:11/01/2024 08:20:23 PM Interpretation: Performing Lab: Notes/Report: Source Facility: [place] [address] [place] [address] CT Scan Report Signed Patient: GRETCHEN PARMAR MR#: [id number] : 1950 Acct:[id number] Age/Sex: 73 / M ADM Date: 10/29/24 Loc: CT Attending Dr: Daksha Oreilly M.D. Ordering Physician: Daksha Oreilly M.D. Date of Service: 10/29/24 Procedure(s): CT forearm LT wo con Accession Number(s): [id number] cc: Daksha Oreilly M.D. [place] [address] Patient Name: GRETCHEN PARMAR MRN: [id number] date: 1950 Sex: M Assigned Patient Location: CT Current Patient Location: Accession/Order Number: [id number] Exam Date: 10/29/2024 14:45 Report Date: 11/01/2024 [...] M.D. Signed By: 11/01/248 DD/ 04 TD/TT: Minister:PSA SCREENING Reviewed date:12/18/2024 01:52:01 PM Interpretation: Performing Lab: Notes/Report: [facility] ,Prostate Specific Antigen Scrn<0.13<=4.00 ng/mLPerforming Lab:see noteML - [facility] LBCA echo doppler complete Reviewed date:03/24/2025 07:57:44 PM Interpretation: Performing Lab: Notes/Report: Source Facility: [facility] [place]-[address] [place] [address] Cardiology Report Signed Patient: GRETCHEN PARMAR MR#: [id number] : 1950 Acct:[id number] Age/Sex: 74 / M ADM Date: 03/24/25 Loc: CARD Attending Dr: BRYCE HUERTA Ordering Physician: BRYCE HUERTA Date of Service: 03/24/25 Procedure(s): CA echo doppler complete Accession Number(s): [id number] cc: Daksha Oreilly M.D.; BRYCE HUERTA Patient Name: GRETCHEN PARMAR MR#: [id number] : 1950 Exam Date: 03/24/2025 Ordering Doctor: DR BRYCE HUERTA M.D. ECHOCARDIOGRAM REPORT PROCEDURE: CA ECHO DOPPLER COMPLETE INDICATIONS: Coronary artery disease, h/o CABG, h/o NC COMPARISON: None. DESCRIPTION: COMPLETE ECHOCARDIOGRAM Real-time transthoracic [...] Signed By: 03/24/25 1522 DD/ 1521 TD/TT: Minister:CARLY T3 Reviewed date:09/04/2025 01:44:02 PM Interpretation: Performing Lab: Notes/Report: [facility] [place] Carly T32.382.18-3.98 pg/mLPerforming Lab:see noteML - [facility] LB T4 Reviewed date:09/04/2025 01:44:02 PM Interpretation: Performing Lab: Notes/Report: [facility] [place] ,T4 Thyroxine5.604.50-12.10 ug/dLPerforming Lab:see allyML - [facility] LBTSH Reviewed date:09/04/2025 01:44:02 PM Interpretation: Performing Lab: Notes/Report: [facility] [place] ,Thyroid Stimulating Hormone1.2000.358-3.740 uIU/mLPerforming Lab:see noteML - [facility] LBCBC AUTO DIFF Reviewed date:09/07/2025 12:58:45 PM Interpretation: Performing Lab: Notes/Report: [facility] [place] ,White Blood Count5.44.0-11.0 10 3/uLRed Blood Count2.344.70-6.10 10 6/uL Hemoglobin8.414.0-18.0 g/wLBdbjbtcwzf71.342.0-54.0 %Mean Corpuscular Dseawx362.4 80.0-94.0 fLMean Corpuscular Ocnquyveva88.925.9-34.0 pgMean Corpuscular HGB Conc 31.929.9-35.2 g/dLRed Cell Distribution Width15.311.0-15.0 %Platelet Gukhu370 150-450 10 3/uLMean Platelet Volume9.39.5-13.5 fLNeutrophils Percent Auto72.3 43.0-75.0 %Lymphocytes Percent Auto16.420.5-60.0 %Monocytes Percent Auto9.01.7- 12.0 %Eosinophils Percent Auto1.30.9-7.0 %Basophils Percent Auto0.60.2-2.0 % Immature Granulocytes Pct Auto0.40.0-0.5 %Neutrophils Absolute Auto3.91.4-6.5 10 3/uLLymphocytes Absolute Auto0.91.2-3.8 10 3/uLMonocytes Absolute Auto0.50.3- 0.8 10 3/uLEosinophils Absolute Auto0.10.0-0.7 10 3/uLBasophils Absolute Auto0.0 0.0-0.1 10 3/uLImmature Granulocytes Abs Auto0.020.00-0.03 10 3/uLPerforming Lab:see noteML - [facility] LBPROF 14(COMP METB) Reviewed date:09/07/2025 12:58:45 PM Interpretation: Performing Lab: Notes/Report: [facility] [place] ,Itbtyn255161-466 mmol/LPotassium3.93.5-5.1 mmol/OPphkrlyr07489-060 mmol/LCarbon Xgzrcdi38.121.0-32.0 mmol/LAnion Gap10.4Ekxdyus01313-169 mg/dLBlood Urea Yqrmaulk32.07.0-18.0 mg/dLCreatinine1.080.70-1.30 mg/dLEstimated GFR ( Stephanie>60>=60 mL/min/1.73m 2Estimated GFR (Non- Kristel>60>=60 mL/min/1.73m 2BUN Creatinine Ratio13.0Vhjwrcf9.68.5-10.1 mg/dLBilirubin Total0.80.2-1.0 mg/dL Aspartate Amino Iskhhwwdcav0966-25 U/LAlanine Epbqahdcnmqryfux36024-18 U/L Alkaline Feouxybgopk1006-821 U/LTotal Cpcopcw77.56.4-8.2 g/dLAlbumin Level3.1 3.4-5.0 g/dLGlobulin8.4Albumin Globulin Ratio0.4Performing Lab:see note - [facility] LBTroponin I High Sensitivity Reviewed date:09/07/2025 12:58:45 PM Interpretation: Performing Lab: Notes/Report: [facility] [place] ,Troponin I High Odqhyaidkyu275.54.0-76.1 pg/mL RESULTS CALLED TO NORA WALSH LPN at 1135 CUT-OFF POINTS HAVE BEEN ESTABLISHED BASED ON THE FOURTH UNIVERSAL DEFINITION OF MYOCARDIAL INFARCTION. THE UPPER REFERENCE LIMIT (URL) OF TROPONIN, DEFINED THE 99TH PERCENTILE OF cTnI DISTRIBUTION IN A REFERENCE POPULATION, HAS BEEN CONFIRMED THE DECISION THRESHOLD FOR NC DIAGNOSIS. 99TH PERCENTILE = 76.2 PG/ML NOTE: HIGH-SENSITIVITY TROPONIN ASSAY IS NOT INTENDED TO BE USED IN ISOLATION BUT SHOULD BE INTERPRETED IN CONJUNCTION WITH OTHER DIAGNOSTIC AND CLINICAL INFORMATION. Performing Lab:see note - [facility] LBCA echo doppler complete Reviewed date:09/07/2025 04:35:28 PM Interpretation: Performing Lab: Notes/Report: Source Facility: [facility] [place]-[address] [place] [address] [place] [address] Cardiology Report Signed Patient: GRETCHEN PARMAR MR#: [id number] : 1950 Acct:[id number] Age/Sex: 74 / M ADM Date: 09/07/25 Loc: CARD Attending Dr: Daksha Oreilly M.D. Ordering Physician: Daksha Oreilly M.D. Date of Service: 09/07/25 Procedure(s): CA echo doppler complete Accession Number(s): [id number] cc: Daksha Oreilly M.D. Patient Name: GRETCHEN PARMAR MR#: [id number] : 1950 Exam Date: 09/07/2025 Ordering Doctor: DR DAKSHA OREILLY . ECHOCARDIOGRAM REPORT PROCEDURE: CA ECHO DOPPLER COMPLETE INDICATIONS: Shortness of breath COMPARISON: None. DESCRIPTION: COMPLETE ECHOCARDIOGRAM Real-time transthoracic echocardiography with 2D, M-mode, spectral and color flow Doppler performed. QUALITY: Technical quality was good. LEFT VENTRICLE: Normal chamber size. Mild concentric left ventricular hypertrophy. LV EF: Global left ventricular systolic function is moderately reduced; visually estimated ejection fraction is 35 to 40%. Global hypokinesis with regional variability. DIASTOLIC: Grade III diastolic dysfunction. ATRIAL SEPTUM: Inadequately seen. LEFT ATRIUM: Severe dilatation. RIGHT ATRIUM: Moderate dilation. RIGHT VENTRICLE: Mild dilatation. Decreased right ventricular systolic function. TRICUSPID VALVE: Normal mobility and thickness. No stenosis with mild regurgitation. Moderate pulmonary hypertension. RVSP 50mmHg. MITRAL VALVE: Normal mobility and thickness. No evidence of mitral valve stenosis. There is no mitral annular calcification. Mild mitral regurgitation. AORTIC VALVE: Normal trileaflet appearance. Mildly calcified aortic valve. Normal leaflet mobility. No evidence of aortic valve stenosis. Trivial aortic regurgitation. AORTIC ROOT: Normal diameter and appearance. Measuring 3.4cm. PULMONIC VALVE: Normal thickness and mobility. No stenosis. Mild to moderate regurgitation. PERICARDIUM: Trivial pericardial effusion. CONCLUSION: 1. Global left ventricular systolic function [...] moderate pulmonic regurgitation 10. Trivial pericardial effusion Adult Echocardiography Procedure Report Left Ventricle LVEDD (3.7 - 5.6 cm): 5.41 cm LVESD (2.2 - 4.0 cm): 4.52 cm LVIVS thickness (0.6 - 1.2 cm): 1.19 cm LVPW thickness (0.5 - 1.0 cm): 1.29 cm e': 0.10 m/s E - e': 10.23 LVOT Max Gradient: 4.87 mm[Hg], 4.87 mm[Hg], 4.87 mm[Hg] LVOT Area (cm2): 1.10 m/s Peak Velocity (LVOT): 1.10 m/s, 1.10 m/s, 1.10 m/s Mean Velocity (LVOT): 0.77 m/s LVOT Diameter 1.95 cm Left Ventricular Ejection Fraction: 39.06 % Left Atrium LA Volume Index (2D A2C): 62.05 ml/m2 Left Atrium Systolic Dimension: 5.04 cm Mitral Valve MV E to A Ratio: 2.07 Mitral Valve A-Wave Peak Velocity: 0.51 m/s Mitral Valve E-Wave Peak Velocity: 1.05 m/s Right Ventricle RV Internal Diastolic Dimension: 4.06 cm Aorta AO Root Diam: 3.38 cm Ascending Ao Diam: 3.01 cm Aortic Valve AoV Area (Peak Lorenzo): 2.05 cm2, 2.01 cm2, 2.09 cm2 AoV Area (VTI): 2.17 cm2, 2.10 cm2, 2.22 cm2 Peak Velocity(Antegrade Flow): 1.64 m/s, 1.58 m/s Peak Gradient(Antegrade Flow): 10.76 mm[Hg], 9.96 mm[Hg] Mean Velocity(Antegrade Flow): 1.15 m/s, 1.15 m/s Mean Gradient(Antegrade Flow): 6.14 mm[Hg], 5.88 mm[Hg] Velocity Time Integral: 34.83 cm, 31.48 cm Tricuspid Valve Peak Velocity (Regurgitant Flow): 2.67 m/s, 2.63 m/s, 2.97 m/s Pulmonic Valve Mean Gradient: 1.88 mm[Hg], 1.77 mm[Hg], 1.72 mm[Hg] Mean Velocity: 0.64 m/s, 0.62 m/s, 0.60 m/s Peak Velocity: 0.89 m/s Peak Gradient: 3.48 mm[Hg], 3.01 mm[Hg], 3.01 mm[Hg] Right Atrium Right Atrium Systolic Pressure: 88.56 ml, 88.56 ml Dictated by: Maisha Iglesias M.D. on 09/07/2025 at 14:44 Approved by: Maisha Iglesias M.D. on 09/07/2025 at 14:51 Dictated By: Maisha Iglesias M.D. Signed By: 09/07/251452 DD/ 51 TD/TT: Minister:PROF Sidhu(COMP METB) Reviewed date:09/08/2025 04:12:39 PM Interpretation: Performing Lab: Notes/Report: [facility] ,Wyqclg984056-538 mmol/LPotassium4.03.5-5.1 mmol/XIdntgkyn10785-469 mmol/LCarbon Adjxkir01.421.0-32.0 mmol/LAnion Gap9.4Nnqsnqh9316-402 mg/dLBlood Urea Nitrogen 18.07.0-18.0 mg/dLCreatinine0.990.70-1.30 mg/dLEstimated GFR ( Stephanie>60 >=60 mL/min/1.73m 2Estimated GFR (Non- Kristel>60>=60 mL/min/1.73m 2BUN Creatinine Ratio18.0Hdmkpse4.98.5-10.1 mg/dLBilirubin Total0.70.2-1.0 mg/dL Aspartate Amino Qliaiasdkgc9120-07 U/LAlanine Fktxktotvdiwgxpr65965-80 U/L Alkaline Yhvxkuljcfx2102-618 U/LTotal Czcwcle70.56.4-8.2 g/dLAlbumin Level3.2 3.4-5.0 g/dLGlobulin9.3Albumin Globulin Ratio0.3Performing Lab:see noteML - [facility] LBCBC AUTO DIFF Reviewed date:09/12/2025 03:28:30 PM Interpretation: Performing Lab: Notes/Report: [facility] [place] ,White Blood Count6.94.0-11.0 10 3/uLRed Blood Count2.774.70-6.10 10 6/uL Uogdswttmy06.014.0-18.0 g/oTTzkwvgkoaq99.742.0-54.0 %Mean Corpuscular Volume 110.880.0-94.0 fLMean Corpuscular Ixizdmjbha51.125.9-34.0 pgMean Corpuscular HGB Conc32.629.9-35.2 g/dLRed Cell Distribution Width14.611.0-15.0 %Platelet Count 055698-752 10 3/uLMean Platelet Volume9.09.5-13.5 fLNeutrophils Percent Auto71.4 43.0-75.0 %Lymphocytes Percent Auto15.820.5-60.0 %Monocytes Percent Auto9.81.7- 12.0 %Eosinophils Percent Auto2.00.9-7.0 %Basophils Percent Auto0.70.2-2.0 % Immature Granulocytes Pct Auto0.30.0-0.5 %Neutrophils Absolute Auto4.91.4-6.5 10 3/uLLymphocytes Absolute Auto1.11.2-3.8 10 3/uLMonocytes Absolute Auto0.70.3- 0.8 10 3/uLEosinophils Absolute Auto0.10.0-0.7 10 3/uLBasophils Absolute Auto0.1 0.0-0.1 10 3/uLImmature Granulocytes Abs Auto0.020.00-0.03 10 3/uLPerforming Lab:see noteML - [facility] LBLIPID PROFILE Reviewed date:09/12/2025 03:28:30 PM Interpretation: Performing Lab: Notes/Report: [facility] [place] ,Sahzzvthvihel540<=150 mg/gZXrynlhwnitb123<=200 mg/dLHDL Lrntedpylet7504-65 mg/dL > or =60 mg/dl - LOW CARDIOVASCULAR RISK <40 mg/dl - HIGH CARDIOVASCULAR RISK LDL Cholesterol Dcdfjxijfs301.8 <100 mg/dl OPTIMAL 100-129 mg/dl NEAR OR ABOVE OPTIMAL 130-159 mg/dl BORDERLINE HIGH 160-189 mg/dl HIGH >190 mg/dl VERY HIGH VLDL BJHPWXFICMK39.2Chol HDL Ratio4.3 3.3 - 4.4 LOW RISK 4.4 - 7.1 AVERAGE RISK 7.1 - 11.0 MODERATE RISK >11.0 HIGH RISK Performing Lab:see noteML - [facility] LBPROF CHEM 8 (BAS METB) Reviewed date:09/12/2025 03:28:30 PM Interpretation: Performing Lab: Notes/Report: [facility] [place] ,Rrzbvy656502-734 mmol/LPotassium3.63.5-5.1 mmol/ULhakwrke85694-695 mmol/LCarbon Faveepv32.321.0-32.0 mmol/LAnion Gap7.3Vvpwyvw03991-689 mg/dLBlood Urea Tsigmene76.07.0-18.0 mg/dLCreatinine1.080.70-1.30 mg/dLEstimated GFR ( Stephanie>60>=60 mL/min/1.73m 2Estimated GFR (Non- Kristel>60>=60 mL/min/1.73m 2BUN Creatinine Ratio17.4Crscaix0.38.5-10.1 mg/dLPerforming Lab:see noteML - [facility] LBTroponin I High Sensitivity Reviewed date:09/06/2025 07:22:28 PM Interpretation: Performing Lab: Notes/Report: [facility] [place] ,Troponin I High Cujqpqznxoa268.84.0-76.1 pg/mL RESULTS CALLED TO CUT-OFF POINTS HAVE BEEN ESTABLISHED BASED ON THE FOURTH UNIVERSAL DEFINITION OF MYOCARDIAL INFARCTION. THE UPPER REFERENCE LIMIT (URL) OF TROPONIN, DEFINED THE 99TH PERCENTILE OF cTnI DISTRIBUTION IN A REFERENCE POPULATION, HAS BEEN CONFIRMED THE DECISION THRESHOLD FOR NC DIAGNOSIS. 99TH PERCENTILE = 76.2 PG/ML NOTE: HIGH-SENSITIVITY TROPONIN ASSAY IS NOT INTENDED TO BE USED IN ISOLATION BUT SHOULD BE INTERPRETED IN CONJUNCTION WITH OTHER DIAGNOSTIC AND CLINICAL INFORMATION. Performing Lab:see noteML - [facility] LBCBC AUTO DIFF Reviewed date:09/06/2025 07:22:28 PM Interpretation: Performing Lab: Notes/Report: [facility] ,White Blood Count5.24.0-11.0 10 3/uLRed Blood Count2.344.70-6.10 10 6/uL2+ MACROHemoglobin8.514.0-18.0 g/nAAxfsnjnirj98.242.0-54.0 %Mean Corpuscular Volume 116.280.0-94.0 fLMean Corpuscular Aljjmqomtm83.325.9-34.0 pgMean Corpuscular HGB Conc31.329.9-35.2 g/dLRed Cell Distribution Width15.711.0-15.0 %Platelet Count 689653-265 10 3/uLMean Platelet Volume9.59.5-13.5 fLNeutrophils Percent Auto62.9 [...] Performing Lab: Notes/Report: [facility] ,Thyroid Stimulating Hormone0.7500.358-3.740 uIU/mLPerforming Lab:see noteML - [facility] LBT4 Reviewed date:12/18/2024 01:52:01 PM Interpretation: Performing Lab: Notes/Report: [facility] [place] ,T4 Thyroxine5.804.50-12.10 ug/dLPerforming Lab:see noteML - [facility] LBPROF 14(COMP METB) Reviewed date:12/18/2024 01:52:01 PM Interpretation: Performing Lab: Notes/Report: [facility] ,Ngiede323218-140 mmol/LPotassium4.13.5-5.1 mmol/NIztcahby69667-899 mmol/LCarbon Nwmairr22.421.0-32.0 mmol/LAnion Gap10.6Ixqhrfm13095-939 mg/dLBlood Urea Ykiuwlhl39.07.0-18.0 mg/dLCreatinine1.070.70-1.30 mg/dLEstimated GFR ( Stephanie>60>=60 mL/min/1.73m 2Estimated GFR (Non- Kristel>60>=60 mL/min/1.73m 2BUN Creatinine Ratio17.5Vzpxfem0.98.5-10.1 mg/dLBilirubin Total0.30.2-1.0 mg/dL Aspartate Amino Jbqiwkmpseg7603-08 U/LAlanine Gzkwoxbcrzwlqdkx9866-72 U/L Alkaline Ovovwbzjhiu5356-523 U/LTotal Protein9.16.4-8.2 g/dLAlbumin Level4.03.4- 5.0 g/dLGlobulin5.1Albumin Globulin Ratio0.8Performing Lab:[facility] LBL[facility]ID [facility]FILE Reviewed date:12/18/2024 01:52:01 PM Interpretation: Performing Lab: Notes/Report: [facility] ,Yyqgiaivctoym863<=150 mg/yKHztxtfrjhhp914<=200 mg/dLHDL Lfzxorauhfk0896-93 mg/dL > or =60 mg/dl - LOW CARDIOVASCULAR RISK <40 mg/dl - HIGH CARDIOVASCULAR RISK LDL Cholesterol Ufzhchcskt01.8 <100 mg/dl OPTIMAL 100-129 mg/dl NEAR OR ABOVE OPTIMAL 130-159 mg/dl BORDERLINE HIGH 160-189 mg/dl HIGH >190 mg/dl VERY HIGH VLDL HCPXUTWNDXU58.2Chol HDL Ratio3.9 3.3 - 4.4 LOW RISK 4.4 - 7.1 AVERAGE RISK 7.1 - 11.0 MODERATE RISK >11.0 HIGH RISK Performing Lab:see note - [facility] LBINSULIN Reviewed date:12/18/2024 01:52:01 PM Interpretation: Performing Lab: Notes/Report: [facility] ,Ndgaokl00.22.6-24.9 uIU/mL Performed at: [facility] Lab[address] [id number] [employer] Officer: Anselmo Gonzalez PhD, Phone: [phone] Performing Lab:[facility] [place] LBGLYCOHEMOGLOBIN A1C Reviewed date:12/18/2024 01:52:01 PM Interpretation: Performing Lab: Notes/Report: [facility] [place] ,Glycohemoglobin A1C6.24.5-6.2 % ADA RECOMMENDED LIMIT 4.0 - 6.0 ADA THERAPEUTIC TARGET < 7.0 ACTION SUGGESTED > 7.0 Estimated Average Xfekfuy753Zbowhrscjm Lab:see noteML - [facility] [place] LB FREE T3 Reviewed date:12/18/2024 01:52:01 PM Interpretation: Performing Lab: Notes/Report: [facility] [place] ,Free T32.862.18-3.98 pg/mLPerforming Lab:see noteML - [facility] LB CBC AUTO DIFF Reviewed date:12/18/2024 01:52:01 PM Interpretation: Performing Lab: Notes/Report: [facility] [place] ,White Blood Count5.44.0-11.0 10 3/uLRed Blood Count3.464.70-6.10 10 6/uL Fyhvoxwjeh40.614.0-18.0 g/bEDbjeorpghf74.742.0-54.0 %Mean Corpuscular Wotkiu34.4 80.0-94.0 fLMean Corpuscular Oixzqbksuf70.525.9-34.0 pgMean Corpuscular HGB Conc 34.429.9-35.2 g/dLRed Cell Distribution Width12.211.0-15.0 %Platelet Nkafo757 150-450 10 3/uLMean Platelet Volume8.49.5-13.5 fLNeutrophils Percent Auto66.2 43.0-75.0 %Lymphocytes Percent Auto20.720.5-60.0 %Monocytes Percent Auto9.11.7- 12.0 %Eosinophils Percent Auto3.10.9-7.0 %Basophils Percent Auto0.70.2-2.0 % Immature Granulocytes Pct Auto0.20.0-0.5 %Neutrophils Absolute Auto3.61.4-6.5 10 3/uLLymphocytes Absolute Auto1.11.2-3.8 10 3/uLMonocytes Absolute Auto0.50.3- 0.8 10 3/uLEosinophils Absolute Auto0.20.0-0.7 10 3/uLBasophils Absolute Auto0.0 0.0-0.1 10 3/uLImmature Granulocytes Abs Auto0.010.00-0.03 10 3/uLPerforming Lab:see noteML - [facility] Reason For Referral No Information Medications Medication SIG (Take, Route, Frequency, Duration) Notes Start Date End Date Status Iron 325 (65 Fe) MG 1 tablet Orally bid; Duratio n: 30 days 4ActivePotassium Chloride ER 20 MEQ1 capsule with food Orally Twice a day; Duration: 30 days5ActiveRosuvastatin Calcium 10 MG1 tablet Orally Once a dayActivePantoprazole Sodium 40 MG1 tablet 1/2 to 1 hour before morning meal Orally Once a day; Duration: 30 5ActiveEzetimibe 10 MG1 tablet Orally Once a dayActiveOne A Day Mens VitaCraves -as directed OrallyActive Farxiga 10 MG1 tablet Orally Once a day; Duration: 30 days5Active Flaxseed OilActiveAspirin 81 81 MG1 tablet Orally Once a dayActiveNitroglycerin 0.4 MG1 sl Sublingual Q 5 min as needed for chest pain5ActiveVitamin D ActiveLisinopril 20 MG1 tablet Orally Once a dayActiveVitamin C 1000 MG1 tablet Orally Once a day5ActiveMetoprolol Succinate ER 25 MG1 tablet Orally Once a day; Duration: 30 days09/09/2025tiveLasix 40 MG1 tablet Orally Once a day; Duration: 30 days5ActiveSpironolactone 25 MG1/2 tablet Orally Once a day; Duration: 30 days5ActiveB ComplexActiveLevothyroxine Sodium 50 MCGTAKE 1 TABLET BY MOUTH ONCE DAILY IN THE MORNING ON AN EMPTY STOMACH; Duration: 30ActivetiZANidine HCl 4 MG2 tabs Orally qhs; Duration: 30 daysPRN 5Active Immunizations Vaccine Route Administration Date Status Comme nts Flu, Fluzone High-Dose (2022 -2023) (94730) 65 yrs+ Unknown 10/01/2023 Administered Social History [...] containing alcohol in the past year?Weekly (3 points)Nobxmd9Mouwbbyzurkbla PositiveAUDIT-C (Standard) Question Answer Notes Did you have a drink containing alcohol in the p ast year? 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)ActiveconfirmedProblem Cerebrovascular disease (61945242)Other cerebrovascular disease (I67.89)Active confirmedProblemOsteoarthritis of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
== END 2025-09-15 14:48 | disposition home or self-care (01) ==
LOC: LAB 14:47
PROVIDERS: PCP Family Medicine; Visit Provider Family Medicine
DX: D64.9 Anemia, unspecified (principal)
CPT/HCPCS: G0328

== ENCOUNTER 2025-09-20 11:50 | Outpatient (OUT) | payer MEDICARE, SELFPAY ==
--- OUTSIDE RECORDS SUMMARY | 2025-09-20 11:59 | XMS_ITS | CCD ---
Author Organization [facility] CliniSywa Care Team Providers Care Edge In[employer]ppers Name Role Phone AMBER KIRBY Admitting Unavailable [...] Admitting Unavailable Daksha Doll Primary Care Physician [phone] Haroon Huntley Attending Unavailable Haroon Huntley Admitting Unavailable Haroon HUNTLEY Attending Unavailable Daksha Doll Referring Unavailable Haroon HUNTLEY Attending Unavailable MOUKARBELBRYCE Attending Unavailable AMYJIN Attending Unavailable Allergies Allergy ClassificationReported Allergen(s)Allergy TypeDate of OnsetReaction(s) Facility (1 source)black walnut pollen extractDrug AllergyThe [facility] Rep[facility] (1 source)Hmg-Coa Reductase Inhibitors (Statins); Translations: [statins] Propensity to adverse reactions (disorder)[facility] Repository (1 source)No Known Medication Allergies; Translations: [No Known Medication Allergies]Propensity to adverse reactions (disorder)[facility] Repository Medications Current Medications MedicationDrug Class(es)DatesSig (Normalized)Sig (Original)aspirin 81 mg delayed release oral tablet (2 sources)Platelet Aggregation Inhibitor, Nonsteroidal Anti-inflammatory Drug Start: 73-99-1751lncy 1 tablet by mouth once dailyaspirin 81 mg Oral EC Tab 81 mg = 1 tab(s), Oral, Daily Start Date: 06/19/21 Status: Orderedatenolol 50 mg oral tablet (2 sources)beta-Adrenergic BlockerStart: 36-97-3817rlaw 1 tablet by mouth once dailyatenolol 50 mg Tab 50 mg = 1 tab(s), Oral, Daily Start Date: 06/19/21 Status: OrderedOsteo Bi-Flex (2 sources)Start: 13-53-0179Lijgv Bi-Flex Refill(s) 0 Start Date: 02/16/24 Status: Orderedezetimibe 10 mg oral tablet (2 sources)Dietary Cholesterol Absorption InhibitorStart: 08-63-5076sxbz 1 tablet by mouth once dailyezetimibe 10 mg Tab 10 mg = 1 tab(s), Oral, Daily Start Date: 06/19/21 Status: OrderedFish Oils (2 sources)Start: 07-31-4946uvwq 1200 mg by mouth once dailyFish Oil 1,200 mg, Oral, Daily Start Date: 06/19/21 Status: Orderedlisinopril 10 mg oral tablet (2 sources)Angiotensin Converting Enzyme InhibitorStart: 85-53-4818yshc 1 tablet by mouth once dailylisinopril 10 mg Tab 10 mg = 1 tab(s), Oral, Daily Start Date: 06/19/21 Status: OrderedMultivitamin preparation (2 sources)Start: 55-77-4679abmn 1 tablet by mouth once dailymultivitamin 1 tab(s), Oral, Daily, Refill(s) 0 Start Date: 02/16/24 Status: Orderedrosuvastatin calcium 10 mg oral tablet (2 sources)HMG-CoA Reductase InhibitorStart: 59-09-8372avyj 1 tablet by mouth once dailyrosuvastatin 10 mg Tab 10 mg = 1 tab(s), Oral, Daily Start Date: 06/19/21 Status: Ordered Problems Active Problems Problem ClassificationProblemDateDocumented DateEpisodic/ChronicAcute cerebrovascular disease (2 sources)Cerebrovascular ohmnupuh41-05-2814WkjxucuYiqhy myocardial infarction (2 sources)Myocardial ovhdcmbcuq92-93-9288PhrznbpYjgeiesd (2 sources)Werrqybn24-09-6600MibwbfiIxklynfwrp heart failure; nonhypertensive (2 sources)Unspecified systolic (congestive) heart failure; Translations: [Unspecified systolic (congestive) heart failure]Onset: 42-98-3444Mkzlwpp Coronary atherosclerosis and other heart disease (7 sources)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; Translations: [Coronary arteriosclerosis]Onset: 08-19-2022 58-73-3066GujudoiRpzpdkteyu and other anemia (2 sources)Anemia, unspecified; Translations: [Anemia, unspecified]Onset: 71-05-6262ZeskoazgGzvoiths mellitus without complication (4 sources)Other abnormal glucose; Translations: [OTHER ABNORMAL GLUCOSE]Onset: 16-25-7872PxbtpqcdHmbydzhty of lipid metabolism (9 sources)Hyperlipidemia, unspecified; Translations: [Hyperlipidemia]Onset: 85-36-2112EzqdxbsMtytdhzic hypertension (5 sources)Essential (primary) hypertension; Translations: [Hypertensive disorder]Onset: 342778-08-8715OqnjrcpQaaqbqf and fatigue (1 source)Other fatigue; Translations: [OTHER FATIGUE]Onset: 70-51-7789Ymuiajqp Osteoarthritis (2 sources)Uvalifyiozbihv85-55-6270EpbttqdIotppgiiipty (2 sources)Reflxqjnooaz29-79-6533ZukkjbfSoipn gastrointestinal disorders (2 sources)Occult blood in pmohgf52-71-3550YrnfuyrbUffma nutritional; endocrine; and metabolic disorders (2 sources)Body mass index 30+ - esawzzs78-58-6662IbrfbhbEbsuc nutritional; endocrine; and metabolic disorders (2 sources)Morbid bqodraf90-19-8925WbuxlxlKnysg screening for suspected conditions (not mental disorders or infectious disease) (4 sources)Encounter for screening for malignant neoplasm of prostate; Translations: [Encounter for screening for malignant neoplasm of rectum]Onset: 89-72-1945NzqnfnepWwlcw skin disorders (2 sources)Hypertrophic condition of skin; Translations: [Other hypertrophic disorders of the skin]Onset: 40-90-4394TvfarddvKikoi skin disorders (2 sources)Skin cph53-64-4352HeprxarxFfsa-; endo-; and myocarditis; cardiomyopathy (except that caused by tuberculosis or sexually transmitted disease) (2 sources)CardiomyopathyOnset: 628780-52-3926UropsypMvjlltcloss; intervertebral disc disorders; other back problems (2 sources)Degeneration of lumbar intervertebral kjpy23-90-0752Ocqokvg Spondylosis; intervertebral disc disorders; other back problems (2 sources)Spinal stenosis of lumbar mjdouf26-79-9714Ecscsotu Past or Other Problems Problem ClassificationProblemDateDocumented DateEpisodic/ChronicCoronary atherosclerosis and other heart disease (2 sources)Presence of aortocoronary bypass graft; Translations: [Presence of aortocoronary bypass graft]Onset: 16-27-6790MljybsljHjrdc liver diseases (2 sources)Abnormal levels of other serum enzymes; Translations: [Abnormal levels of other serum enzymes]Onset: 67-81-9424Jfsaexlc Results Test NameValueInterpretationReference RangeFacilityOrders Onlyon 09-09-2025 Orders [id number] Omkar Delatorreelin Smith 1950 M Date Provider Department Center 09/09/2025 KYRA SANTIZO RONAL [facility] Family History Family history unknown: Yes Family Status - Relation Status Age at Mother Father AliveNormalUniClermont County HospitalOffice Visiton 09-08-2025 Follow-up [id number] Gretchen Delatorre 1950 M Date Provider Department Center 09/08/2025 [id number] DALLAS RONAL [facility] Family History Family history unknown: Yes Family Status - Relation Status Age at Mother Father Alive Level of Service:79342 CO OFFICE/OUTPATIENT ESTABLISHED HIGH MDM 40 MIN Reason for Visit and Comments: Follow-up [689161] - Patient is here today for a decreased EF and increased tropnins. Recent Echo and labs. Patient denies chest pain, palpitations/racing heart, dizziness/lightheaded, SOB/MASON with walking distance Previous ME [Other] Cardiomyopathy [104] Hyperlipidemia [182] ME [Other] Coronary Artery Disease [187] Shortness of Breath [599026] - SOB/MASON with walking 3 weeks ago the SOB increased Hypertension [306184] Atrial Fibrillation [80] Edema [3837834486] - Bilateral ankle swelling Congestive Heart Failure [127]NormalSumma Health36on ----- Message ----- From: Bryce Palacios MD Sent: 03/27/2025 12:18 PM EDT To: Sunita Blanco MA His echo was ok, follow up as planned. Advised patient of Dr. Palacios's finding. Patient verbalized understanding.[facility] ColumbusOrders Onlyon 44-16-5205Eprdfo [id number] Gretchen Delatorre 1950 M Date Provider Department Center 03/24/2025 [id number], [facility] RONAL [facility] Family History Family history unknown: YesNormalUniversDunlap Memorial HospitalOffice Visit on 32-06-3550Geairl-up [id number] Gretchen Delatorre 1950 M Date Provider Department Center 10/18/2024 367-BRYCE PALACIOS RONAL [facility] Family History Family history unknown: Yes Level of Service:56096 CO OFFICE/OUTPATIENT ESTABLISHED LOW [facility] BeachwoodPathology Noteon 23-53-9977Oilirnwli Note [id number]#1.00[facility] Health SystemAmbulatory Visit Summaryon 02-35-0489Iqgtzinipn Visit Summary GRETCHEN DELATORRE :1950 Visit Date:03/02/2024 [...] us for your care. [facility] HospitalGeneral [facility] Office/Clinic Noteon 38-79-9292[facility]iff Surgery Office/Clinic NoteChief Complaint in-office excisional biopsy [...] Recorded SARS-CoV-2 (COVID-19) mRNA BNT-162b2 vax 02/06/2021 RecordedNoSelect Medical Specialty Hospital - Cleveland-FairhillComment on above:Result Comment: Electronically Signed By: ARIAN JAIME, Haroon Cancino.br\Date and Time Signed: 03/02/24 15:16 EDTLon 03-02-2024L Specimen: [id number] Received: 03/03/24 Status: MICHELLE Keller Num: [id number] Spec Type: Surgical Subm Dr: Haroon Huntley MD FACS Tissues: A Skin-Other than Cyst, tag, debridement or plastic repair (RT CHEST WALL) Procedures: HE/4, Gross/Micro L4 Age/ Patient Sex Location Account Attending Physician Gretchen Delatorre 73/M LABELL [id number] Haroon Huntley MD FACS SPEC NUM: [id number] RECD: 03/03/24 STATUS: MICHELLE KELLER NUM: [id number] PIYUSH: 03/02/24- SUBM DR: Haroon Huntley MD FACS ENTERED: 03/03/[address] [facility] [address]: [facility] SPEC TYPE: Surgical DEPT: [...] skin tag over several years CPT Codes 47831 Specimen: [id number] Received: 03/03/24 Status: MICHELLE Keller Num: [id number] Spec Type: Surgical Subm Dr: Haroon Huntley MD FACS Tissues: A Skin-Other than Cyst, tag, debridement or plastic repair (RT CHEST WALL) Procedures: CASSANDRA/Lelo, Gross/Micro L4 Patient: Gretchen Delatorre [id number] (Continued) Signed (signature on file) Misael Erazo MD 03/04/[address] [place] [address] Physician GroupAmbulatory Visit Summaryon 32-60-7218Ypsmewoodh Visit Summary GRETCHEN DELATORRE :1950 Visit Date:02/18/2024 [...] JAIME, Haroon Ellison Where: General Surgery Arian/Callie FigueroaSelect Medical Specialty [facility] Facesheeton 88-07-3557Tkfoynnuk [id number]#1.00TIFAultman Alliance Community HospitalPhysician Referralon 95-28-8169Dvwxfstyj Referral [id number]#1.00TIFAultman Alliance Community HospitalPhysician Referralon 26-72-9080Dzahvccpu Referral [id number]#1.00TIFAultman Alliance Community HospitalOCC BLD IMMUNO SCREENon 74-99-9506TYPMXP BLOODPositiveAbnormalNEGATIVEThe [facility] HospitalComment on above:Performed By: #### CMP, CK, LIPID #### [facility] [address] [address] [address] Tyrell Brooks AUTO DIFFon 93-14-0021HGPR #0.0 103/ulNormal0.0-0.1The [facility] HospitalComment on above:Performed By: #### CBC #### [facility] [address] [address] [address] Tyrell CasillasBasophils/100 WBC (Bld)0.5 %Normal0.2-2.0[facility] Comment on above:Performed By: #### CBC #### [facility] [address] [address] [address] Tyrell Crenshaw #0.2 103/ulNormal0.0-0.7The [facility] HospitalComment on above: Performed By: #### CBC #### [facility] [address] [address] [address] Tyrell Cernaosinophils/100 WBC (Bld)2.6 %Normal0.9-7.0[facility] Comment on above:Performed By: #### CBC #### [facility] [address] [address] [address] Tyrell Cernarythrocyte distribution width (RBC) [Ratio]11.7 %Axsklm92.0-15.0 The [facility] HospitalComment on above:Performed By: #### CBC #### [facility] [address] [place] [address] Dr. Tyrell CasillasHematocrit (Bld) [Volume fraction]39.9 %Critically low42.0-54.0 The [facility] HospitalComment on above:Performed By: #### CBC #### [facility] [address] [place] [address] Dr. Tyrell CasillasHemoglobin (Bld) [Mass/Vol]13.9 g/dLCritically low14.0-18.0The [facility] HospitalComment on above:Performed By: #### CBC #### [facility] [address] [place] [address] Dr. Tyrell Bermeo #0.02 10e3/ulNormal0.00-0.03The [facility] HospitalComment on above:Performed By: #### CBC #### [facility] [address] [place] [address] Dr. Tyrell Bermeo %0.3 %Normal0.0-0.5The [facility] HospitalComment on above: Performed By: #### CBC #### [facility] [address] [place] [address] Dr. Tyrell Boyle #1.7 103/ulNormal1.2-3.8The [facility] HospitalComment on above:Performed By: #### CBC #### [facility] [address] [place] [address] Dr. Tyrell Lenzhocytes/100 WBC (Bld)28.1 %Ufpfxh99.5-60.0The [facility] HospitalComment on above:Performed By: #### CBC #### [facility] [address] [place] [address] Dr. Tyrell BauerUAL DIFF REQNONormalThe [facility] HospitalComment on above: Performed By: #### CBC #### [facility] [address] [place] [address] Dr. Tyrell Perez (RBC) [Entitic mass]32.3 ciCvuwlr53.9-34.0The [facility] HospitalComment on above:Performed By: #### CBC #### [facility] [address] [place] [address] Dr. Tyrell Villarreal (RBC) [Mass/Vol]34.8 g/nOKkliuf83.9-35.2The [facility] HospitalComment on above:Performed By: #### CBC #### [facility] [address] [place] [address] Dr. Tyrell Su (RBC) [Entitic vol]92.8 gWMaoimf51.0-94.0The [facility] HospitalComment on above:Performed By: #### CBC #### [facility] [address] [place] [address] Dr. Tyrell Elizondo #0.5 103/ulNormal0.3-0.8The [facility] HospitalComment on above:Performed By: #### CBC #### [facility] [address] [place] [address] Dr. Tyrell Patelocytes/100 WBC (Bld)8.5 %Normal1.7-12.0The [facility] Comment on above:Performed By: #### CBC #### [facility] [address] [place] [address] Dr. Tyrell Willson #3.5 103/ulNormal1.4-6.5The [facility] HospitalComment on above:Performed By: #### CBC #### [facility] [address] [place] [address] Dr. Tyrell Oconnorutrophils/100 WBC (Bld)60.0 %Etqmxm19.0-75.0The [facility] HospitalComment on above:Performed By: #### CBC #### [facility] [address] [place] [address] Dr. Tyrell Chowdhurylet mean volume (Bld) [Entitic vol]8.3 fLCritically low 9.5-13.5The [facility] HospitalComment on above:Performed By: #### CBC #### [facility] [address] [place] [address] Dr. Tyrell CasillasPLT200 103/ivXjodtw155-029Ism [facility] HospitalComment on above: Performed By: #### CBC #### [facility] [address] [place] [address] Dr. Tyrell CasillasRBC4.30 106/ulCritically low4.70-6.10The [facility] on above:Performed By: #### CBC #### [facility] [address] [address] [address] Tyrell CasillasWBC5.9 103/ulNormal4.0-11.0The [facility] on above: Performed By: #### CBC #### [facility] [address] [address] [address] Tyrell CasillasCPKon 42-67-6153GV [Catalytic activity/Vol]505 U/LCritically high 39-308The [facility] on above:Performed By: #### CK #### [facility] [address] [place] [address] Dr. Tyrell CasillasFREE T3on 80-38-4533FROO T32.98 pg/mlLNormal2.18-3.98The [facility] on above:Performed By: #### T4, CMP, TSH, FT3, LIPID #### [facility] [address] [place] [address] Dr. Tyrell CasillasGLYCOHEMOGLOBIN A1Con 95-06-8631WGW RECOMMENDATIONSEE BELOWNormal The [facility] HospitalComascension river district hospital on above:Result Comment: ADA RECOMMENDED LIMIT 4.0 - 6.0 ADA THERAPEUTIC TARGET < 7.0 ACTION SUGGESTED > 7.0Performed By: #### CMP, CK, LIPID #### [facility] [address] [place] [address] Dr. Tyrell CasillasGlucose [Mass/Vol]131 mg/dLNormalThe [facility] on above:Performed By: #### CMP, CK, LIPID #### [facility] [address] [address] [address] Tyrell CasillasHbA1c (Bld) [Mass fraction]6.2 %Normal4.5-6.2The [facility] on above:Performed By: #### CMP, CK, LIPID #### [facility] [address] [place] [address] Dr. Tyrell CasillasLIPID PROFILEon 84-58-2007TYSW-HDL RATIO NORMSShelby Memorial HospitalComment on above:Result Comment: 3.3 - 4.4 LOW RISK 4.4 - 7.1 AVERAGE RISK 7.1 - 11.0 MODERATE RISK >11.0 HIGH RISKPerformed By: #### T4, CMP, TSH, FT3, LIPID #### [facility] [address] [address] [address] Tyrell CasillasCholesterol [Mass/Vol]150 mg/dLNormal<=200[facility] Comment on above:Performed By: #### T4, CMP, TSH, FT3, LIPID #### [facility] [address] [address] [address] Tyrell CasillasCholesterol in HDL [Mass/Vol]42 mg/qTMimmbj60-89AoyMercy Health St. Elizabeth Boardman HospitalComment on above:Performed By: #### T4, CMP, TSH, FT3, LIPID #### [facility] [address] [address] [address] Tyrell Harperesterol in LDL [Mass/Vol]84.2 mg/dLNoCleveland Clinic Akron General Lodi HospitalComment on above:Performed By: #### T4, CMP, TSH, FT3, LIPID #### [facility] [address] [address] [address] Tyrell Rosario.total/Cholesterol in HDL [Mass ratio]3.6 {ratio} NormalMercy Health St. Elizabeth Boardman HospitalComment on above:Performed By: #### T4, CMP, TSH, FT3, LIPID #### [facility] [address] [place] [address] Dr. Tyrell Beaver NORMAL> or = 60 mg/dl - LOW CARDIOVASCULAR RISK <40 mg/dl - HIGH CARDIOVASCULAR RISKBarnesville HospitalComment on above:Performed By: #### T4, CMP, TSH, FT3, LIPID #### [facility] [address] [place] [address] Dr. Tyrell Garcia CALC NORMALSEE [facility]ding County HospitalComment on above:Result Comment: <100 mg/dl OPTIMAL 100 - 129 mg/dl NEAR OR ABOVE OPTIMAL 130 - 159 mg/dl BORDERLINE HIGH 160 - 189 mg/dl HIGH >190 mg/dl VERY HIGH Performed By: #### T4, CMP, TSH, FT3, LIPID #### [facility] [address] [address] [address] Tyrell CasillasTriglyceride [Mass/Vol]119 mg/dLNormal<=150The [facility] Comment on above:Performed By: #### T4, CMP, TSH, FT3, LIPID #### [facility] [address] [address] [address] Tyrell CasillasVLDL CALC23.8 mg/dLNormalThe [facility] HospitalComment on above: Performed By: #### T4, CMP, TSH, FT3, LIPID #### [facility] [address] [place] [address] Dr. Tyrell CasillasPRODiego 14(COMP METB)on 77-62-0552Fqndgrc [Mass/Vol]4.5 g/dLNormal 3.4-5.0The [facility] HospitalComment on above:Performed By: #### T4, CMP, TSH, FT3, LIPID #### [facility] [address] [address] [address] Tyrell CasillasAlbumin/Globulin [Mass ratio]1.1 {ratio}NormalThe [facility] HospitalComment on above:Performed By: #### T4, CMP, TSH, FT3, LIPID #### [facility] [address] [address] [address] Tyrell Haile [Catalytic activity/Vol]57 U/HWptwml63-847Lhz [facility] Medical Centerment on above:Performed By: #### T4, CMP, TSH, FT3, LIPID #### [facility] [address] [address] [address] Tyrell Martin [Catalytic activity/Vol]49 U/QLspzhr90-57Cmv [facility] Centerment on above:Performed By: #### T4, CMP, TSH, FT3, LIPID #### [facility] [address] [address] [address] Tyrell Whittaker gap [Moles/Vol]12.7 mmol/LNormalMercy Health St. [facility] Comment on above:Performed By: #### T4, CMP, TSH, FT3, LIPID #### [facility] [address] [address] [address] Tyrell CasillasAST [Catalytic activity/Vol]35 U/LGsnqem62-16MmfMercy Health St. Elizabeth Boardman HospitalComment on above:Performed By: #### T4, CMP, TSH, FT3, LIPID #### [facility] [address] [address] [address] Tyrell CasillasBilirubin [Mass/Vol]0.4 mg/dLNormal0.2-1.0[facility] Comment on above:Performed By: #### T4, CMP, TSH, FT3, LIPID #### [facility] [address] [place] [address] Dr. Tyrell CasillasCalcium [Mass/Vol]9.5 mg/dLNormal8.5-10.1The [facility] Comment on above:Performed By: #### T4, CMP, TSH, FT3, LIPID #### [facility] [address] [place] [address] Dr. Tyrell CasillasChloride [Moles/Vol]106 mmol/AJnlesg46-321DzfMercy Health St. [facility] Comment on above:Performed By: #### T4, CMP, TSH, FT3, LIPID #### [facility] [address] [place] [address] Dr. Tyrell CasillasCO2 [Moles/Vol]27.4 mmol/SFrkzce30.0-32.0The [facility] Comment on above:Performed By: #### T4, CMP, TSH, FT3, LIPID #### [facility] [address] [place] [address] Dr. Tyrell CasillasCreatinine [Mass/Vol]0.96 mg/dLNormal0.70-1.30The [facility] HospitalComment on above:Performed By: #### T4, CMP, TSH, FT3, LIPID #### [facility] [address] [place] [address] Dr. Santillan ChangEGFR-AF AZERBAIJANI>60Normal>=60The [facility] Medical Centerment on above:Performed By: #### T4, CMP, TSH, FT3, LIPID #### [facility] [address] [place] [address] Dr. Tyrell Jimenez-NON AF AZERBAIJANI>60Normal>=60The [facility] Centerment on above:Performed By: #### T4, CMP, TSH, FT3, LIPID #### [facility] [address] [place] [address] Dr. Tyrell CasillasGlobulin (S) [Mass/Vol]4.0 g/dLNormalThe [facility] HospitalComment on above:Performed By: #### T4, CMP, TSH, FT3, LIPID #### [facility] [address] [place] [address] Dr. Tyrell CasillasGlucose [Mass/Vol]101 mg/eNFoygpn18-890PoyMercy Health St. [facility] Comment on above:Performed By: #### T4, CMP, TSH, FT3, LIPID #### [facility] [address] [place] [address] Dr. Tyrell CasillasPotassium [Moles/Vol]4.1 mmol/LNormal3.5-5.1[facility] Comment on above:Performed By: #### T4, CMP, TSH, FT3, LIPID #### [facility] [address] [place] [address] Dr. Tyrell CasillasProtein [Mass/Vol]8.5 g/dLCritically high6.4-8.2[facility] on above:Performed By: #### T4, CMP, TSH, FT3, LIPID #### [facility] [address] [place] [address] Dr. Tyrell CasillasSodium [Moles/Vol]142 mmol/HArsrji197-391VqxMercy Health St. [facility] Comment on above:Performed By: #### T4, CMP, TSH, FT3, LIPID #### [facility] [address] [place] [address] Dr. Tyrell CasillasUrea nitrogen [Mass/Vol]18.0 mg/dLNormal7.0-18.0The [facility] on above:Performed By: #### T4, CMP, TSH, FT3, LIPID #### [facility] [address] [place] [address] Dr. Tyrell CasillasUrea nitrogen/Creatinine [Mass ratio]18.8 mg/mgNoCleveland Clinic Ak[facility] General Lodi HospitalComascension river district hospital on above:Performed By: #### T4, CMP, TSH, FT3, LIPID #### [facility] [address] [place] [address] Dr. Tyrell Guo4on 37-59-7329N3 [Mass/Vol]5.60 ug/dLNormal4.50-12.10The [facility] HospitalComascension river [facility] hospital on above:Performed By: #### T4, CMP, TSH, FT3, LIPID #### [facility] [address] [place] [address] Dr. Tyrell Xiao 32-93-5072UEW9.892 uIU/mLNormal0.358-3.740[facility] on above:Performed By: #### T4, CMP, TSH, FT3, LIPID #### [facility] [address] [place] [address] Dr. Tyrell Iglesias 22-78-6309HW [Catalytic activity/Vol]444 U/LCritically high 39-308[facility] HospitalCom[facility] on above:Performed By: #### CMP, CK, LIPID #### [facility] [address] [place] [address] Dr. Tyrell CaslilasLIPID PROFILEon 65-77-2073EAMT-HDL RATIO NORMSShelby Memorial HospitalComascension river district hospital on above:Result Comment: 3.3 - 4.4 LOW RISK 4.4 - 7.1 AVERAGE RISK 7.1 - 11.0 MODERATE RISK >11.0 HIGH RISKPerformed By: #### CMP, CK, LIPID #### [facility] [address] [place] [address] Dr. Tyrell CasillasCholesterol [Mass/Vol]132 mg/dLNormal<=200[facility] Comment on above:Performed By: #### CMP, CK, LIPID #### [facility] [address] [address] [address] Tyrell CasillasCholesterol in HDL [Mass/Vol]39 mg/dLCritically rnl44-05Bll [facility] on above:Performed By: #### CMP, CK, LIPID #### [facility] [address] [address] [address] Tyrell CasillasCholesterol in LDL [Mass/Vol]72.8 mg/dLNoCleveland Clinic Akron General Lodi HospitalComment on above:Performed By: #### CMP, CK, LIPID #### [facility] [address] [address] [address] Tyrell Harperesterbg.total/Cholesterol in HDL [Mass ratio]3.4 {ratio} NormalMercy Health St. Elizabeth Boardman HospitalComment on above:Performed By: #### CMP, CK, LIPID #### [facility] [address] [place] [address] Dr. Tyrell Beaver NORMAL> or = 60 mg/dl - LOW CARDIOVASCULAR RISK <40 mg/dl - HIGH CARDIOVASCULAR RISKNoCleveland Clinic Akron General Lodi HospitalComment on above:Performed By: #### CMP, CK, LIPID #### [facility] [address] [address] [address] Tyrell Garcia CALC NORMALSEE BELOWBarnesville HospitalComment on above:Result Comment: <100 mg/dl OPTIMAL 100 - 129 mg/dl NEAR OR ABOVE OPTIMAL 130 - 159 mg/dl BORDERLINE HIGH 160 - 189 mg/dl HIGH >190 mg/dl VERY HIGH Performed By: #### CMP, CK, LIPID #### [facility] [address] [place] [address] Dr. Tyrell CasillasTriglyceride [Mass/Vol]101 mg/dLNormal<=150The [facility] Comment on above:Performed By: #### CMP, CK, LIPID #### [facility] [address] [place] [address] Dr. Tyrell CasillasVLDL CALC20.2 mg/dLNoCleveland Clinic Akron General Lodi HospitalComment on above: Performed By: #### CMP, CK, LIPID #### [facility] [address] [address] [address] Tyrell CasillasPROF 14(COMP METB)on 60-70-7925Prilfae [Mass/Vol]4.4 g/dLNormal 3.4-5.0The [facility] HospitalComment on above:Performed By: #### CMP, CK, LIPID #### [facility] [address] [place] [address] Dr. Tyrell CasillasAlbumin/Globulin [Mass ratio]1.3 {ratio}NormalThe [facility] HospitalComment on above:Performed By: #### CMP, CK, LIPID #### [facility] [address] [address] [address] Tyrell Haile [Catalytic activity/Vol]55 U/RHwqimq18-916Gkl [facility] HospitalComment on above:Performed By: #### CMP, CK, LIPID #### [facility] [address] [place] [address] Dr. Tyrell Martin [Catalytic activity/Vol]48 U/MKwlane26-39Qfn [facility] HospitalComment on above:Performed By: #### CMP, CK, LIPID #### [facility] [address] [address] [address] Tyrell Whittaker gap [Moles/Vol]12.1 mmol/LNormalThe [facility] Comment on above:Performed By: #### CMP, CK, LIPID #### [facility] [address] [place] [address] Dr. Tyrell CasillasAST [Catalytic activity/Vol]35 U/IKggpjp72-64Fgj [facility] HospitalComment on above:Performed By: #### CMP, CK, LIPID #### [facility] [address] [place] [address] Dr. Tyrell CasillasBilirubin [Mass/Vol]0.4 mg/dLNormal0.2-1.0The [facility] Comment on above:Performed By: #### CMP, CK, LIPID #### [facility] [address] [place] [address] Dr. Tyrell CasillasCalcium [Mass/Vol]9.0 mg/dLNormal8.5-10.1The [facility] Comment on above:Performed By: #### CMP, CK, LIPID #### [facility] [address] [address] [address] Tyrell CasillasChloride [Moles/Vol]106 mmol/PGzdyph89-361RmuMercy Health St. [facility] Comment on above:Performed By: #### CMP, CK, LIPID #### [facility] [address] [address] [address] Tyrell CasillasCO2 [Moles/Vol]25.0 mmol/HRumksq10.0-32.0[facility] Comment on above:Performed By: #### CMP, CK, LIPID #### [facility] [address] [place] [address] Dr. Tyrell CasillasCreatinine [Mass/Vol]0.85 mg/dLNormal0.70-1.30[facility] HospitalComment on above:Performed By: #### CMP, CK, LIPID #### [facility] [address] [place] [address] Dr. Tyrell CernaGFR-AF AZERBAIJANI>60Normal>=60The [facility] HospitalComment on above:Performed By: #### CMP, CK, LIPID #### [facility] [address] [place] [address] Dr. Tyrell Jimenez-NON AF AZERBAIJANI>60Normal>=60The [facility] HospitalComment on above:Performed By: #### CMP, CK, LIPID #### [facility] [address] [place] [address] Dr. Tyrell CasillasGlobulin (S) [Mass/Vol]3.4 g/dLNormalThe [facility] HospitalComment on above:Performed By: #### CMP, CK, LIPID #### [facility] [address] [place] [address] Dr. Tyrell CasillasGlucose [Mass/Vol]106 mg/rQBgsjiy82-873GaxMercy Health St. [facility] Comment on above:Performed By: #### CMP, CK, LIPID #### [facility] [address] [place] [address] Dr. Tyrell CasillasPotassium [Moles/Vol]4.1 mmol/LNormal3.5-5.1The [facility] Comment on above:Performed By: #### CMP, CK, LIPID #### [facility] [address] [address] [address] Tyrell CasillasProtein [Mass/Vol]7.8 g/dLNormal6.4-8.2[facility] Comment on above:Performed By: #### CMP, CK, LIPID #### [facility] [address] [address] [address] Tyrell CasillasSodium [Moles/Vol]139 mmol/VFrbozt397-497IbuMercy Health St. [facility] Comment on above:Performed By: #### CMP, CK, LIPID #### [facility] [address] [place] [address] Dr. Tyrell CasillasUrea nitrogen [Mass/Vol]15.0 mg/dLNormal7.0-18.0[facility] HospitalComment on above:Performed By: #### CMP, CK, LIPID #### [facility] [address] [place] [address] Dr. Tyrell Watts nitrogen/Creatinine [Mass ratio]17.6 mg/mgNormalThAkron Children's HospitalComment on above:Performed By: #### CMP, CK, LIPID #### [facility] [address] [place] [address] Dr. Tyrell CasillasCoquinton Summaryon 05-27-2278Wpttwk SummaryCODING DATE: 05/31/2020 [facility] STATUS: Home PAYOR: Medicare MC [...] By: Eugenie George Date Saved: 05/31/2020 01:32 [facility] HospitalProvider Orderson 61-87-7364Bvwttmqe [id number]#1.00[facility] HospitalCoding Summaryon 83-30-3325Cwtkrm SummaryCODING DATE: 05/19/2020 [facility] STATUS: Home PAYOR: Medicare MC APC DESCRIPTION 5115 Level 5 Musculoskeletal Procedures ADMIT DX: REASON FOR VISIT DX: M16.11 Unilateral primary osteoarthritis, right hip FINAL DX: PRINCIPAL: M16.11 Unilateral primary osteoarthritis, right hip SECONDARY: I10 Essential (primary) hypertension I25.10 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 Z86.73 Personal history of transient ischemic attack (TIA), and cerebral infarction without residual deficits PYMT PROC APC STAT DESCRIPTION DOCTOR NAME DATE 21548 241 J1 Arthroplasty, acetabular Quirino, Bairon And and [...] Nicci Kee Revised Date Saved: 05/18/2020 12:22 [place] HospitalConsent Formson 10-65-9499Vewnrsa [id number]#1.00[facility] HospitalMedication Managementon 78-43-2125Ssmsjlaaxn Management [id number]#1.00[facility] Outside Recordson 57-60-5047Uwcnjgc Records [id number]#1.00[facility] Provider Orderson 15-76-6714Qhxusrob Orders [id number]#1.00[facility] Telemetry Stripson 75-53-0841Xtledpuns Strips [id number]#1.00OTGTIFFNoLutheran Hospital.Auto Diff 1on 45-32-2536Lljj Hyde %7 %Normal1-12[facility] HospitalComment on above: Performed By: #### [id number], [id number], [id number] #### [facility] (DEFAULT) [address] [place] [address] 95114Nuhi Abs#0.0 y21Zyszoe6.0-0.2Msalem city hospital HospitalComment on above:Performed By: #### [id number], [id number], [id number] #### [facility] (DEFAULT) [address] [place] [address] 03483Qabkesoox/100 WBC (Bld)0.2 %Normal0.2-2.0[facility] Hospital Comment on above:Performed By: #### [id number], [id number], [id number] #### [facility] (DEFAULT) [address] [place] [address] 11214Bvx Abs#0.1 q77Jivcmz1.0-0.4[facility] HospitalComment on above:Performed By: #### [id number], [id number], [id number] #### [facility] (DEFAULT) [address] [place] [address] 05361Dpdhqukzcve/100 WBC (Bld)1.5 %Normal0.9-4.0[facility] HospitalComment on above:Performed By: #### [id number], 95978362, [id number] #### [facility] (DEFAULT) [address] [place] [address] 93847Dquxqstczbz (Bld) [#/Vol]1.3 h99Lbrwzv0.3-2.9[facility] HospitalComment on above:Performed By: #### 4577008, 67245655, [id number] #### [facility] (DEFAULT) [address] [place] [address] 77171Qjadtjdorbp/100 WBC (Bld)15 %Hesflm31-38Mogyiliw Hospital Comment on above:Performed By: #### 6804135, 60440190, [id number] #### [facility] (DEFAULT) [address] [place] [address] 75479Qqqo Abs#0.6 w41Nqcvxu1.0-0.8[facility] HospitalComment on above:Performed By: #### 5851565, 66206133, [id number] #### [facility] (DEFAULT) [address] [place] [address] 79834Bqnt Abs#6.4 z97Mthhto7.5-9.2[facility] HospitalComment on above:Performed By: #### 4386053, 14403999, [id number] #### [facility] (DEFAULT) [address] [place] [address] 39587Jvqkutsjuxl/100 WBC (Bld)76 %Fgeldq98-28Ezouclzz Hospital Comment on above:Performed By: #### [id number], 10954293, [id number] #### [facility] (DEFAULT) [address] [place] [address] 05155IFS w/ Auto Diffon 22-90-0469Fryrwlfoldi distribution width (RBC) [Ratio]11.9 %Wrkpms52.5-15.0[facility] HospitalComment on above: Performed By: #### [id number], 06748226, [id number] #### [facility] (DEFAULT) [address] [place] [address] 68522Hqtladuqgj (Bld) [Volume fraction]26.9 %Low34.8-51.9 [facility] HospitalComment on above:Performed By: #### 6075755, 68785366, [id number] #### [facility] (DEFAULT) [address] [place] [address] 28875Jrclnafjli (Bld) [Mass/Vol]9.2 g/dLLow11.8-17.7[facility] HospitalComment on above:Performed By: #### 6452261, 79504354, [id number] #### [facility] (DEFAULT) [address] [place] [address] 74134Xhn Diff?AutoNormalPeoples Hospital HospitalComment on above: Performed By: #### 1288637, 92063053, [id number] #### [facility] (DEFAULT) [address] [place] [address] 56054PSF (RBC) [Entitic mass]32 ftWcrzkl21-29Gfspzbiz Hospital Comment on above:Performed By: #### [id number], 25640405, [id number] #### [facility] (DEFAULT) [address] [place] [address] 23518XEBG (RBC) [Mass/Vol]34 g/iYAhxcoq20-37Sgnqhupg Hospital Comment on above:Performed By: #### [id number], 84014185, [id number] #### [facility] (DEFAULT) [address] [place] [address] 31704RAJ (RBC) [Entitic vol]94 bJYnngrz12-074Eenvylbv Hospital Comment on above:Performed By: #### [id number], 03260945, [id number] #### [facility] (DEFAULT) [address] [place] [address] 27069Ifxrodqg mean volume (Bld) [Entitic vol]9.4 fLNormal 6.3-10.2Msalem city hospital HospitalComment on above:Performed By: #### 8055261, 10795508, [id number] #### [facility] (DEFAULT) [address] [place] [address] 70114Kyhnaglbc (Bld) [#/Vol]203 r27Mrequz129-624Tzbiqglh HospitalComment on above:Performed By: #### 7608328, 17674203, [id number] #### [facility] (DEFAULT) [address] [place] [address] 71388YCL (Bld) [#/Vol]2.87 m81Cgq3.70-5.30[facility] Comment on above:Performed By: #### 8208177, 77280568, [id number] #### [facility] (DEFAULT) [address] [place] [address] 31163UPU (Bld) [#/Vol]8.5 b63Hskifh4.5-10.5[facility] Comment on above:Performed By: #### 8307785, 72223260, [id number] #### [facility] (DEFAULT) [address] [place], [place] [address]Gulrkiwcx Noteon 34-00-7855Fuyinktee NoteEducation Materials POST OPERATIVE TOTAL HIP DISCHARGE [...] can be done to rule of a DVT.[facility]Extra [facility] 15-55-7048Yvtn [facility] Medical CenterComment on above:Performed By: #### [id number], 69214927, [id number] #### [facility] (DEFAULT) [address] [place] [address] 54313Tukxuezyg Patient Summaryon 72-81-2677Yylwhnihx Patient Summary[address] [address] Patient Discharge Instructions Name: GRETCHEN DELATORRE : 1950 Patient Address: [address] [place] [address] [address] [address] Primary Care Provider: Name: DAKSHA DOLL After you are discharged if you find you have any questions, please, call [phone] ext [phone] to speak to a nurse. Discharge Diagnosis: Primary osteoarthritis of right hip Prescription Information: If you have been given a prescription for narcotics, seek immediate medical attention if you have any difficulty breathing or any sudden status changes such as confusion andsleepiness. If you or anyone you know is experiencing suicidal thoughts, mental health, alcohol and/or drug addiction problems; contact the [facility] 26/05 Crisis Hotline -Text 4HOPE to 721204. If you received any narcotics, sedation, or [...] business decisions or sign any legal documents [facility] would like to thank you for allowing us to assist you with your healthcare needs.The following includes patient education materials and information regarding your injury/illness. GRETCHEN DELATORRE has been given the following list of follow-up instructions, prescriptions, and patient education materials: Follow-up Instructions With: Address: When: Bairon [address] [facility] [address] [place] [address] Business (2) 05/25/2020 2:00 PM With: Address: When: DAKSHA AFIA [address] [place] [address] [place] [address] Business (1) Medications During the [...] Centers for Disease Control and Prevention July 2014[facility] Nutrition Noteon 62-77-4708Jchsiceyo NotePt eating well avg 70-100% of meals and taking supplements as ordered. No new wts. Labs reviewed, post op anemia noted. No new rec'd at this time. Will continue to follow.[facility] Pharmacy Noteon 00-25-5610Paxzpnfc NoteI have personally reviewed the patient's current [...] Echavarria [Verified on: 05/17/2020 08:32 EDT] Eliezer Echav[facility]riaC[facility] Note - Nurseon 05-17-2020 Progress Note [...] [Verified on: 05/17/2020 17:30 EDT] Patricia Bustillos RNWilson Health Note-Physicianon 05-17-2020 Progress Note-PhysicianDATE OF POSTOPERATIVE FOLLOW [...] Win's office. Bert Aguila DO JOB #: [id number] bk [Electronically Signed on: 05/18/2020 11:35 EDT] BERT AGUILA DO [Verified on: 05/18/2020 11:35 EDT] BERT AGUILA DO [Transcribed on: 05/17/2020 14:48 EDT] [facility].Auto Diff 1on 11-61-8457Fhjk Hyde %9 %Normal1-12 [facility] HospitalComment on above:Performed By: #### [id number], 86760416, [id number] #### [facility] (DEFAULT) [address] [place] [address] 75719Cfsd Abs#0.0 s92Rmqejk8.0-0.2[facility] HospitalComment on above:Performed By: #### [id number], [id number], [id number] #### [facility] (DEFAULT) [address] [place] [address] 40321Iowrxafdt/100 WBC (Bld)0.1 %Low0.2-2.0[facility] Hospital Comment on above:Performed By: #### [id number], 50779445, [id number] #### [facility] (DEFAULT) [address] [place] [address] 95186Fhl Abs#0.0 k92Osiuqd8.0-0.4[facility] HospitalComment on above:Performed By: #### 1362651, 29196669, [id number] #### [facility] (DEFAULT) [address] [place] [address] 87559Vxjdkeelqvl/100 WBC (Bld)0.2 %Low0.9-4.0[facility] Comment on above:Performed By: #### 1718726, 74730272, [id number] #### [facility] (DEFAULT) [address] [place] [address] 76708Mttyzoyiygz (Bld) [#/Vol]1.8 i43Nygsue7.3-2.9[facility] HospitalComment on above:Performed By: #### 3090812, 96464765, [id number] #### [facility] (DEFAULT) [address] [place] [address] 14729Xllmqtryhfy/100 WBC (Bld)14 %Tudxlf29-91Fosna[facility]o Hospital Comment on above:Performed By: #### 7374944, 15286476, [id number] #### [facility] (DEFAULT) [address] [place] [address] 24342Xieb Abs#1.1 n27Dshv6.0-0.8[facility] HospitalComment on above:Performed By: #### 2019301, 95326636, [id number] #### [facility] (DEFAULT) [address] [place] [address] 02946Urgj Abs#9.9 z51Lsxs5.5-9.2Msal[facility] hospital HospitalComment on above:Performed By: #### 7829701, 69696048, [id number] #### [facility] (DEFAULT) [address] [place] [address] 22638Uuxntalfclq/100 WBC (Bld)77 %Athgfb95-10Nohnubnc Hospital Comment on above:Performed By: #### 3842008, 10585667, [id number] #### [facility] (DEFAULT) [address] [place] [address] 90278SPW w/ Auto Diffon 50-52-3246Mlfgnwsidwb distribution width (RBC) [Ratio]12.1 %Prqdir86.5-15.0[facility] HospitalComment on above: Performed By: #### 2955560, 51945528, [id number] #### [facility] (DEFAULT) [address] [place] [address] 15591Pcvvmjrmwf (Bld) [Volume fraction]30.8 %Low34.8-51.9 [facility] HospitalComment on above:Performed By: #### 8734607, 98043844, [id number] #### [facility] (DEFAULT) [address] [place] [address] 87993Sueeuricmp (Bld) [Mass/Vol]10.5 g/dLLow11.8-17.7[facility] HospitalComment on above:Performed By: #### 7995566, 37848532, [id number] #### [facility] (DEFAULT) [address] [place] [address] 70214Pdz Diff?AutoNormalPeoples Hospital HospitalComment on above: Performed By: #### 5883584, 13962451, [id number] #### [facility] (DEFAULT) [address] [place] [address] 11364CBZ (RBC) [Entitic mass]32 ucMcgchv74-88Xbmlpdes Hospital Comment on above:Performed By: #### 7775716, 43645446, [id number] #### [facility] (DEFAULT) [address] [place] [address] 19070KBOM (RBC) [Mass/Vol]34 g/qAWikcvd30-36Grwwhaxb Hospital Comment on above:Performed By: #### 0601679, 64271597, [id number] #### [facility] (DEFAULT) [address] [place] [address] 01705WDD (RBC) [Entitic vol]93 gYQdbubr93-589Mukgafbk Hospital Comment on above:Performed By: #### 9229977, 52663699, [id number] #### [facility] (DEFAULT) [address] [place] [address] 97117Pmzzfiyl mean volume (Bld) [Entitic vol]9.2 fLNormal 6.3-10.2MAvita Health System Bucyrus HospitalComment on above:Performed By: #### 7502529, 54394272, [id number] #### [facility] (DEFAULT) [address] [place] [address] 38607Hfjvfjfhq (Bld) [#/Vol]238 d52Xostbb882-971Izdvzdbi HospitalComment on above:Performed By: #### 4933859, 32981351, [id number] #### [facility] (DEFAULT) [address] [place] [address] 14584KKG (Bld) [#/Vol]3.31 w57Iyk0.70-5.30[facility] Comment on above:Performed By: #### 3745516, 36427775, [id number] #### [facility] (DEFAULT) [address] [place] [address] 38895KQH (Bld) [#/Vol]12.9 k43Jivm7.5-10.5[facility] Comment on above:Performed By: #### 7330444, 97295224, [id number] #### [facility] (DEFAULT) [address] [place] [address] 09285Cnoxywzg Note-Physicianon 01-10-8678Ptfcbwud Note-PhysicianDATE OF POSTOPERATIVE ORTHOPEDIC PROGRESS NOTE: 05/16/2020 [...] PROGNOSIS: Good. Bert Aguila DO JOB #: [id number] bk [Electronically Signed on: 05/17/2020 11:24 EDT] BERT AGUILA DO [Verified on: 05/17/2020 11:24 EDT] BERT AGUILA DO [Transcribed on: 05/16/2020 13:06 EDT] [facility].Auto Diff 1on 16-44-9198Vjjy Hyde %1 %Normal1-12 [facility] HospitalComment on above:Performed By: #### [id number], 21261480, [id number] #### [facility] (DEFAULT) [address] [place] [address] 86337Rpsk Abs#0.0 n45Hgmznp8.0-0.2[facility] HospitalComment on above:Performed By: #### 4803174, 24294235, [id number] #### [facility] (DEFAULT) [address] [place] [address] 97104Njsgtqwqz/100 WBC (Bld)0.1 %Low0.2-2.0[facility] Comment on above:Performed By: #### 3746760, 91572870, [id number] #### [facility] (DEFAULT) [address] [place] [address] 76232Vgk Abs#0.0 e78Nlqvwg4.0-0.4[facility] HospitalComment on above:Performed By: #### 8859899, 05904812, [id number] #### [facility] (DEFAULT) [address] [place] [address] 87464Enyhtmfslfg/100 WBC (Bld)0.1 %Low0.9-4.0[facility] Hospital Comment on above:Performed By: #### 0183644, 73428737, [id number] #### [facility] (DEFAULT) [address] [place] [address] 90668Gulblwbqaxr (Bld) [#/Vol]0.4 y35Yaa1.3-2.9[facility] HospitalComment on above:Performed By: #### 4338665, [id number], [id number] #### [facility] (DEFAULT) [address] [place] [address] [id number]/100 WBC (Bld)4 %Mzy70-78[facility]mtxysqjProm[facility] Comment on above:Performed By: #### [id number], [id number], [id number] #### [facility] (DEFAULT) [address] [place] [address] [id number] Abs#0.2 o08Jcpzse7.0-0.8[facility] HospitalComment on above:Performed By: #### [id number], [id number], [id number] #### [facility] [address] [place] [address] 46760Viaw Abs#10.0 z23Vedm3.5-9.2[facility] HospitalComment on above:Performed By: #### [id number], 03867085, [id number] #### [facility] (DEFAULT) [address] [place] [address] 56584Emyygguonix/100 WBC (Bld)94 %Msia73-63Auphvjwa Hospital Comment on above:Performed By: #### 5186636, [id number], [id number] #### [facility] (DEFAULT) [address] [place] [address] 19428Xabbaudpoc Noteon 70-38-1449Hclouvklor NotePatient: GRETCHEN DELATORRE Age: 69 years Sex: [...] AAA (abdominal aortic aneurysm) / SNOMED CT 680784627 / Confirmed CAD (coronary artery disease) / SNOMED CT 85728500 / Confirmed Myocardial infarct / SNOMED CT 57420034 / Confirmed Resolved: CVA, old, cognitive deficits / SNOMED CT 0662206167 Histories Family History: Entire family history is negative. Procedure history: AAA - Abdominal aortic aneurysm (773361380) in 2012 at 62 Years. AAA - Abdominal aortic aneurysm (031419783) in 2005 at 55 Years. quaddruple cardiac byapss in 2005 at 55 Years. back surgery in 2004 at 54 Years. knee scope in 2004 at 54 Years. Comments: 04/27/2020 14:05 Abimbola Pickering RN right Hip arthroplasty (285883458) in 2003 at 53 Years. AAA - Abdominal aortic aneurysm (580169613) in 2002 at 52 Years. Social History [...] ECG interpretation: SR, occ PVCs, NSTWA. Plan [place] [employer] Anesthesiologists#(ASA) physical status classification: Class III. Anesthetic Preoperative Plan Anesthesia: General. . Anesthetic plan, risks, benefits, and alternatives discussed with the patient and/or family. Patient verbalized understanding. Informed consent was given. Consent was signed by the patient. [Electronically Signed on: 05/15/2020 08:26 EDT] Tom Casiano MD [Verified on: 05/15/2020 08:26 EDT] Tom Casiano MDChildren's Hospital for Rehabilitation w/ Auto Diffon 54-25-9034Cmrflxlrooc distribution width (RBC) [Ratio]12.1 %Wmowpn75.5-15.0[facility] HospitalComment on above:Performed By: #### 5831675, 65829969, [id number] #### [facility] (DEFAULT) [address], [place] [address]Ccyxcwviiv (Bld) [Volume fraction]33.2 %Low34.8-51.9 Edgardo HospitalComment on above:Performed By: #### 2569762, 05352827, [id number] #### [facility] (DEFAULT) [address] [place] [address] 01334Jumjdlzped (Bld) [Mass/Vol]11.5 g/dLLow11.8-17.7[facility] HospitalComment on above:Performed By: #### 8118047, 51109603, [id number] #### [facility] (DEFAULT) [address] [place] [address] 89264Hgg Diff?AutoNormalPeoples Hospital HospitalComment on above: Performed By: #### [id number], 09759090, [id number] #### [facility] (DEFAULT) [address] [place] [address] 08553MIC (RBC) [Entitic mass]32 pnXjjboe96-80Jeazbkgk Hospital Comment on above:Performed By: #### 9955325, 91280570, [id number] #### [facility] (DEFAULT) [address] [place] [address] 42001CWHH (RBC) [Mass/Vol]35 g/oWUuspow23-49Ykifunpz Hospital Comment on above:Performed By: #### 6007319, 57308486, [id number] #### [facility] (DEFAULT) [address] [place] [address] 81855ZSK (RBC) [Entitic vol]92 tKAyupwo95-508Cbhbrpqv Hospital Comment on above:Performed By: #### 9372256, 46725255, [id number] #### [facility] (DEFAULT) [address] [place] [address] 40608Bbmejlls mean volume (Bld) [Entitic vol]9.5 fLNormal 6.3-10.2MAvita Health System Bucyrus HospitalComment on above:Performed By: #### 6493313, 06370017, [id number] #### [facility] (DEFAULT) [address] [place] [address] 72364Zwakhpvls (Bld) [#/Vol]205 r65Lekgof499-544Qfadwyhj HospitalComment on above:Performed By: #### 1765570, 71168519, [id number] #### [facility] (DEFAULT) [address] [place] [address] 72946HHB (Bld) [#/Vol]3.62 b43Jaz3.70-5.30[facility] Comment on above:Performed By: #### 4865470, 99336799, [id number] #### [facility] (DEFAULT) [address] [place] [address] 10557XDX (Bld) [#/Vol]10.6 t79Nfdy3.5-10.5[facility] Comment on above:Performed By: #### 3643146, 99965505, [id number] #### [facility] (DEFAULT) [address] [place] [address] 78802Lawsdco and Physicalon 02-97-2023Ooeuxky and Physical [id number]#1.00OTGTIFFWright-Patterson Medical CenterMAGR Intraoperative Recordon 59-51-0011ADNY Intraoperative RecordMAGR Intra-Op Record Summary Primary Physician: Bairon Win DO Finalized Date/Time: 05/15/20 17:18:47 Pt. Name: GRETCHEN DELATORRE/Sex: 1950 MALE Med Rec #: [id number] Physician: Bairon Win DO Financial #: [id number] Pt. Type: O Room/Bed: [facility]/ Admit/Disch: 05/15/20 06:07:00 - Institution: Case Times [...] Role Performed Surgeon - Primary Anesthesiologist of Studio Musician Record Time In 05/15/20 09:01:00 05/15/20 09:01:00 05/15/20 09:01:00 Time Out 05/15/20 11:20:00 05/15/20 11:20:00 05/15/20 11:20:00 Procedure Arthroplasty Total Arthroplasty Total Arthroplasty Total Hip(Right) Hip(Right) Hip(Right) Last Modified By: Ethel Gibson RN, Stephanie RN Sauer, Stephanie RN 05/15/20 14:15:50 05/15/20 14:15:50 05/15/20 14:15:50 Entry 4 Entry 5 Entry 6 Case Attendee Megan TELEPHONE ANSWERER, Mauricio Foreman Brittany E CST Regina TELEPHONE ANSWERER Role Performed Scrub Personnel Political Consultant Political Consultant Time In 05/15/20 09:01:00 05/15/20 09:01:00 05/15/20 [...] By: Pedro Edgar DO Size 54MM 58MM Iron Guardrail Installer DePuy DEPUY DEPUY Catalog # Lot Number [id number] Expiration Date 03/02/30 04/02/30 Serial Number REF [id number] REF [id number] REF [id number] Device Identifier Human Readable PAUL Machine Readable PAUL MR Class Implant Usage Data Site Hip R Hip R Hip R Quantity 1 1 1 Reason for Explant Reason Not Retained Explant Disposition Contract Writer Sterility External Indicator Result Internal Indicator Results Outcome Met (O.30) Yes Yes Yes Last Modified By: Ethel Gibosn RN, Stephanie RN Sauer, Stephanie RN 05/15/20 [...] 56OD 6.5MM X 25MM KA SIZE 11 Iron Guardrail Installer DEPUY DEPUY DEPUY Catalog # Lot Number [id number] Expiration Date 12/31/24 10/02/29 07/03/24 Serial Number REF [id number] REF [id number] REF [id number] Device Identifier Human Readable PAUL Machine Readable PAUL MR Class Implant Usage Data Site Hip R Hip R Hip R Quantity 1 2 1 Reason for Explant Reason Not Retained Explant Disposition Contract Writer Sterility External Indicator Result Internal Indicator Results Outcome Met (O.30) Yes Yes Yes Last Modified By: Ethel Gibson RN, Stephanie RN Sauer, Stephanie RN 05/15/20 15:23:55 05/15/20 15:23:55 05/15/20 15:23:55 Entry 7 Procedure Arthroplasty Total Hip(Right) Implant Action Implant Description DEPUY M SPEC METAL FEMORAL HEAD Implant Information Implant/Explant 05/15/20 10:25:00 Date/Time Implanted/Explanted Bairon Win By: Pedro WHITE Size 036MM /14 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 Name: GRETCHEN DELATORRE/Sex: 1950 MALE Med Rec #: [id number] Physician: Bairon Win DO Financial #: [id number] Pt. Type: D Room/Bed: [facility] Admit/Disch: 05/15/20 06:07:00 - Institution: PACU Case Times MAGR Entry 1 In PACU I 05/15/20 11:15:00 Discharge from PACU 05/15/20 12:05:00 I Last Modified By: Francesca Pastrana RN 05/15/20 12:19:29 Finalized By: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
--- NOTE | 2025-09-20 12:31 | XR_ITS ---
[facility] [place] [id number] Patient Name: GRETCHEN DELATORRE MRN: [id number] date: 1950 Sex: M Assigned Patient Location: LAB Current Patient Location: LAB Accession/Order Number: [id number] Exam Date: 09/20/2025 12:20 Report Date: 09/20/2025 19:38 At the request of: DAKSHA DOLL MD Procedure: XR cervical spine 2-3V 3 views cervical spine HISTORY: Cervical radiculopathy, chronic. No injury Limited assessment at the C6 and C7 levels. Straightening of cervical lordosis secondary patient positioning or spasm. Multilevel spondylosis and facet degeneration. Dens intact. No acute displaced fracture. Unremarkable prevertebral soft tissues. XR/XR cervical spine 2-3V IMPRESSION: Limited assessment of lumbar cervical spine. Extensive spondylosis and facet degeneration. Impression dictated by: Andrea Moreno M.D. 09/20/2025 7:38 PM Dictation Location[facility]ITALAld[facility] plc Electronically authenticated by: [id number] Y Date: 09/20/2025 19:38
[2025-09-20 13:18] LABS: Alanine Aminotransferase 77 U/L (16-63); Albumin Globulin Ratio 0.3; Albumin Level 3.3 g/dL (3.4-5.0); Alkaline Phosphatase 51 U/L (46-116); Anion Gap 9.1; Aspartate Amino Transferase 67 U/L (15-37); Blood Urea Nitrogen 65.0 mg/dL (7.0-18.0); Calcium 9.3 mg/dL (8.5-10.1); Carbon Dioxide 23.9 mmol/L (21.0-32.0); Chloride 102 mmol/L (98-107); Estimated GFR (African America 45 (>=60 mL/min/1.73m^2); Estimated GFR (Non-African Ame 37 (>=60 mL/min/1.73m^2); Globulin 10.2 g/dL; Glucose 130 mg/dL (74-106); NT Pro B Type Natriuretic Pept 631.0 pg/mL (<=900.0); Potassium 5.0 mmol/L (3.5-5.1); Sodium 130 mmol/L (136-145); Total Protein 13.5 g/dL (6.4-8.2)
[2025-09-20 13:31] LABS: Iron 162.0 ug/dL (65.0-175.0)
[2025-09-20 13:40] LABS: Hematocrit 26.9 % (42.0-54.0); Hemoglobin 9.1 g/dL (14.0-18.0); Immature Granulocytes Abs Auto 0.02 10^3/uL (0.00-0.03); Immature Granulocytes Pct Auto 0.3 % (0.0-0.5); Lymphocytes Absolute Auto 1.1 10^3/uL (1.2-3.8); Mean Corpuscular HGB Conc 33.8 g/dL (29.9-35.2); Mean Corpuscular Hemoglobin 36.3 pg (25.9-34.0); Mean Corpuscular Volume 107.2 fL (80.0-94.0); Platelet Count 193 10^3/uL (150-450); Red Blood Count 2.51 10^6/uL (4.70-6.10); White Blood Count 5.9 10^3/uL (4.0-11.0)
[2025-09-20 14:05] LABS: Ferritin 1127.0 ng/mL (26.0-388.0)
== END 2025-09-20 11:51 | disposition home or self-care (01) ==
LOC: LAB 11:54
PROVIDERS: PCP Family Medicine; Visit Provider Family Medicine
DX: M54.12 Radiculopathy, cervical region (principal); M17.0 Bilateral primary osteoarthritis of knee; I11.0 Hypertensive heart disease with heart failure; I50.9 Heart failure, unspecified; D64.9 Anemia, unspecified
CPT/HCPCS: 36415; 72040; 80053; 82728; 83540; 83880; 84484; 85025